=== PATIENT | male | born 1980 | race Two or more races ===

== ENCOUNTER 2023-01-09 18:18 | Emergency (ER) | payer OTHER, SELFPAY ==
[2023-01-09 18:38] VITALS: BP 146/93; PULSE 83; RESP 18; TEMP 36.8; O2SAT 99
--- NOTE | 2023-01-09 19:01 | PC.NURSE ---
Pt has lesions inside his mouth on his inner lips , both upper and lower. He has had these about 1 wk and has been using magic mouthwash with no relief. Pt also has a localized rash to forearms and left leg. In addition, he states his hands peeled yesterday
--- NOTE | 2023-01-09 19:02 | ED_ITS ---
HPI - General Adult General Stated complaint: RASH Time Seen by Provider: 01/09/23 18:31 Source: patient and family Mode of arrival: walk-in Limitations: no limitations History of Present Illness HPI narrative: 42-year-old male presents with a chief complaint of a rash to upper and lower extremities. Pinpoint papular rash upper and lower extremities and information and rash in the mouth. He states yesterday his hands peeled. His was around someone that had mqra-dsrk-yxr-mouth. Patient states he has not been around anyone himself. He's had no rash to the soles of his feet. Denies any fevers chills. He's had no new medications no new foods. He is afebrile nontoxic. He states the medications he was given previously amoxicillin and Magic mouthwash are not helping. Patient denies fevers chills or vomiting. He does not appear toxic. Related Data Previous Rx's Medication Instructions Recorded prednisone 20 mg tablet 20 mg PO DAILY #5 tabs 01/09/23 Allergies Allergy/AdvReac Type Severity Reaction Status Date / Time No Known Drug Allergies Allergy Verified 01/09/23 18:38 Review of Systems ROS Narrative All Systems are negative except as noted/marked.All systems reviewed and otherwise negative PFSH PFSH Social History Smoking status: Current every day smoker Exam Narrative Exam Narrative: Nurses note and vital signs reviewed and patient is not hypoxic. General: The patient appears well and in no apparent distress. Patient is resting comfortably on cart. Skin: Fine maculopapular rash, to upper and lower extremities, no sloughing of skin to the upper or lower extremities. Warm, dry, no pallor noted. Head: Normocephalic, atraumatic Eye: Normal conjunctiva, no drainage, EOMI. PERRL Ears, Nose, Mouth, and Throat: Stomatitis, inflammation the upper gums noted. No other mucosa noted. No lip swelling. Oral mucosa is moist. Nares patent. Mouth without vesicles. Ear canals patent. Tm's without Erythema Cardiovascular: Regular Rate and Rhythm Respiratory: Patient is in no distress, no accessory muscle use, lungs are clear to auscultation, no wheezing, rales or rhonchi GI: Normal bowel sounds, no tenderness to palpation, no masses appreciated. No rebound, guarding, or rigidity noted. Musculoskeletal: The patient has no evidence of calf tenderness, no pitting edema, symmetrical pulses noted bilaterally Neurological: A&O x4, normal speech Psychiatric: Cooperative Constitutional Vital Signs - 24 hr 01/09/23 18:38 Temperature 98.3 F Pulse Rate [Monitor] 83 Respiratory Rate 18 Blood Pressure [Right Arm] 146/93 H Pulse Oximetry 99 Oxygen Delivery Method Room Air Course Vital Signs Vital signs: Vital Signs Temperature 98.3 F 01/09/23 18:38 Pulse Rate 83 01/09/23 18:38 Respiratory Rate 18 01/09/23 18:38 Blood Pressure 146/93 H 01/09/23 18:38 Pulse Oximetry 99 01/09/23 18:38 Oxygen Delivery Method Room Air 01/09/23 18:38 Temperature 98.3 F 01/09/23 18:38 Pulse Rate 83 01/09/23 18:38 Respiratory Rate 18 01/09/23 18:38 Blood Pressure 146/93 H 01/09/23 18:38 Pulse Oximetry 99 01/09/23 18:38 Oxygen Delivery Method Room Air 01/09/23 18:38 Medical Decision Making [facility] Narrative Medical decision making narrative: 42-year-old male presents here with a chief complaint rash and sores to his mouth. He states the Magic mouthwash she is taking is causing him irritation. Patient appears to have viral exanthem or other nontoxic rash at this time. She will be given a dose of Decadron here in the emergency room. We will discharge him home with five days of steroid. He is a type II diabetic. He was made aware to watch his blood sugars. Patient also encouraged to follow-up with dermatology. Discharge Plan Discharge Clinical Impression: Rash, Stomatitis Patient Disposition: Home, Self-Care Time of Disposition Decision: 19:03 Condition: Good Prescriptions / Home Meds: New prednisone 20 mg tablet 20 mg PO DAILY Qty: 5 0RF Instructions: Acute Rash (ED), Gingivostomatitis (ED) Stand Alone Forms: Portal Instructions Referrals: Physician,Non-Staff, MD [Primary Care Provider] - 1 week Follow Up Appointments: dermatology
[2023-01-09] MEDS: DEXAMETHASONE SODIUM PHOSPHATE 10 MG/ML VIAL PO (19:13)
== END 2023-01-09 19:21 | disposition home or self-care (01) ==
PROVIDERS: Emergency Provider Emergency Medicine Emergency Medical Services
DX: K12.1 Other forms of stomatitis (principal); R21 Rash and other nonspecific skin eruption; F17.210 Nicotine dependence, cigarettes, uncomplicated
CPT/HCPCS: 99283; J1100

== ENCOUNTER 2023-03-09 15:22 | Emergency (ER) | payer OTHER, SELFPAY ==
--- NOTE | 2023-03-09 15:24 | ED_ITS ---
HPI - Extremity Injury (Lower) General Chief Complaint: Extremity Injury, Lower Stated Complaint: LT KNEE PAIN Time Seen by Provider: 03/09/23 15:24 History of Present Illness HPI Narrative: Patient presents to emergency department complaining of left knee pain. Patient states started having left knee pain for several weeks. 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 The patient was not used to such straightness activity and thinks that this might have something to do with his current pain. He has been taking Motrin [id number]-ydg-[id number] but yesterday the pain was so intense he could not get any sleep so he came in to be evaluated. Patient also has an appointment with Dr. Quiles on Tuesday. Patient denies any previous injury to the knee. He denies any previous knee problems. He denies any direct blow to the knee. He states he felt some mild paresthesias just distal medially to the knee. He denies any rashes. He denies any weakness. Patient states the pain worsens when he climbs steps, walks, or flexes his knee. Related Data Previous Rx's Medication Instructions Recorded prednisone 20 mg tablet 20 mg PO DAILY #5 tabs 01/09/23 ibuprofen 800 mg tablet 800 mg PO Q8H PRN pain #20 tabs 03/09/23 Allergies Allergy/AdvReac Type Severity Reaction Status Date / Time No Known Drug Allergies Allergy Verified 03/09/23 15:30 Review of Systems ROS Status of ROS 10 or more systems reviewed and unremarkable except as noted in history and below [facility] Social History Smoking status: Never smoker Exam Narrative Exam Narrative: Nurses notes and vital signs reviewed and patient is not hypoxic. General: Nontoxic, Well-appearing and in no apparent distress. Skin: Warm, dry, no pallor noted. No Rash Head: Normocephalic, atraumatic. Neck: Supple, non-tender. Eye: Pupils are equal, round and EOMI. No scleral icterus. Ears, Nose, Mouth, and Throat: TM clear, no posterior oropharynx erythema or nasal mucosal hypertrophy, uvula is mid-line Oral mucosa is moist Cardiovascular: Regular Rate and Rhythm without murmur, gallop or rub. Respiratory: No accessory muscle use or respiratory distress. Lungs are clear to auscultation, no wheezing, rales or rhonchi Chest Wall: no tenderness Back: No midline thoracic or lumbar vertebral tenderness. No CVA tenderness Musculoskeletal: Tenderness to palpation to the anterior medial knee. No erythema or ecchymosis. No laxity. Pain or asymmetry. normal ROM, no calf or popliteal tenderness, no lower extremity edema/swelling. DP +2, tp +2, capillary refill is brisk. GI: Abdomen is soft, non-distended. Normal bowel sounds. No masses appreciated. No tenderness to palpation. No rebound, guarding, or rigidity noted. Neurological: A&O x4. No cranial nerve dysfunction observed. No truncal ataxia. Moves all extremities. Sensation intact. Psychiatric: Cooperative and interactive. Normal mood and affect. MDM - Extremity Injury (Lower) MDM Narrative Medical decision making narrative: X-ray was done which shows a small effusion. All results were discussed with patient. Patient will be placed on an Jaime wrap, knee immobilizer and crutches. He is advised to rest. Given a injection of Toradol IM. He is to continue taking Motrin and follow-up with Dr. Quiles on Tuesday. No additional indication for emergent studies at this time. I answered all questions. Discussed discharge instructions including standard anticipatory guidance and what should prompt a return to the emergency department, including if they get worse are not getting better or develops any new or concerning symptoms. I've given them specific time frame in which to follow-up, and who to follow-up with. The patient demonstrates understanding. Patient is nontoxic and stable for discharge with outpatient follow-up. This note was created with the assistance of a speech recognition program. Although the intention is to generate documents that actually reflects the content of the visit, no guarantees can be provided that every mistake has been identified and corrected by editing. Differential Diagnosis Differential diagnosis: Likely ankle sprain and strain Discharge Plan Discharge Chief Complaint: Extremity Injury, Lower Clinical Impression: Knee effusion Patient Disposition: Home, Self-Care Time of Disposition Decision: 16:10 Condition: Good Mode of Transportation: Private Vehicle Prescriptions / Home Meds: New ibuprofen 800 mg tablet 800 mg PO Q8H PRN (Reason: pain) Qty: 20 0RF No Action prednisone 20 mg tablet 20 mg PO DAILY Qty: 5 0RF Instructions: Swollen Knee Joint (ED) Stand Alone Forms: Portal Instructions Referrals: CHRISTIANA ROSEN APRN [Physician] - 1 week Idris Quiles MD [Physician] - 1 week Discharge Date/Time: 03/09/23 16:26
[2023-03-09 15:25] VITALS: BP 151/95; PULSE 83; RESP 16; TEMP 36.9; O2SAT 99; BMI 32.3
--- NOTE | 2023-03-09 15:27 | XR_ITS ---
The [address] [address] Patient Name: YESENIA TSE MRN: [id number] date: 1980 Sex: M Assigned Patient Location: ED.MAIN Current Patient Location: ER Accession/Order Number: [id number] Exam Date: 03/09/2023 15:40 Report Date: 03/09/2023 16:02 At the request of: UMM SILVERMAN Procedure: XR knee LT 4V PROCEDURE: XR knee LT 4V COMPARISON: None. HISTORY: pain FINDINGS: BONES:No fracture, acute abnormality, or significant arthropathy. SOFT TISSUES:Negative. No visible soft tissue swelling. EFFUSION:Moderate suprapatellar joint effusion OTHER: Negative. XR/XR knee LT 4V IMPRESSION: Moderate joint effusion Electronically authenticated by: CRISELDA DEGROOT Date: 03/09/2023 16:02
--- NOTE | 2023-03-09 15:37 | PC.NURSE ---
pt presents to ED because pt states that he has been having to do a lot of physical fitness testing for his job like running 3 miles and running up stairs and last week after running up stairs he started having pain to his right knee. pt states that he placed a knee brace and it has been helping a little. pt states that yesterday he ran up stairs again for work and pain has worsened. pt having difficulty bending knee and ambulating. ice applied at this time
[2023-03-09] MEDS: KETOROLAC TROMETHAMINE 60 MG/2 ML VIAL IM (16:16)
== END 2023-03-09 16:26 | disposition home or self-care (01) ==
PROVIDERS: Emergency Provider Emergency Medicine
DX: M25.462 Effusion, left knee (principal)
CPT/HCPCS: 73564; 96372; 99284

== ENCOUNTER 2023-03-21 12:29 | Outpatient (OUT) | payer OTHER, SELFPAY ==
--- NOTE | 2023-03-21 12:34 | MR_ITS ---
The [address] [address] Patient Name: YESENIA TSE MRN: [id number] date: 1980 Sex: M Assigned Patient Location: MRI Current Patient Location: MRI Accession/Order Number: [id number] Exam Date: 03/21/2023 12:58 Report Date: 03/21/2023 14:52 At the request of: JUANITA VILLAR Procedure: MR knee LT wo con EXAM: MR knee LT wo con HISTORY: Acute pain of left knee M25.562 COMPARISON: Left knee x-rays 03/09/2023 TECHNIQUE: Multi planar, multisequence MR imaging of the left knee without contrast. Findings: Menisci: The menisci are intact. Cruciate ligaments: The anterior and posterior cruciate ligaments are intact. Collateral ligaments: The medial collateral ligament and lateral collateral complex are intact. Patellofemoral: The extensor mechanism is intact. Small joint effusion. Grade 2 patellofemoral compartment chondromalacia. Other bones and cartilage: There is a nondisplaced transverse fracture of the medial aspect of the proximal tibial metaphysis with minimal adjacent bone marrow edema. No acute joint malalignment. Grade 1/grade 2 femoral tibial compartment chondromalacia. Miscellaneous: No Downey's cyst. MR/MR knee LT wo con IMPRESSION: 1. Nondisplaced transverse fracture of the medial aspect of the proximal tibial metaphysis. Electronically authenticated by: TEENA KRAMER Date: 03/21/2023 14:52
== END 2023-03-21 12:30 | disposition home or self-care (01) ==
LOC: MRI 12:30
PROVIDERS: Visit Provider Orthopaedic Surgery
DX: M25.562 Pain in left knee (principal); S82.192A Other fracture of upper end of left tibia, initial encounter for closed fracture
CPT/HCPCS: 73721

== ENCOUNTER 2023-04-25 08:17 | Outpatient (OUT) | payer OTHER, SELFPAY ==
--- NOTE | 2023-04-25 08:19 | XR_ITS ---
The [address] [address] Patient Name: YESENIA TSE MRN: [id number] date: 1980 Sex: M Assigned Patient Location: [facility] Current Patient Location: [facility] Accession/Order Number: [id number] Exam Date: 04/25/2023 08:29 Report Date: 04/25/2023 14:09 At the request of: JUANITA VILLAR Procedure: XR tibia fibula LT 2V EXAM: XR tibia fibula LT 2V HISTORY: Stress Fracture Left Tibia M84.362A COMPARISON: 03/21/2023. TECHNIQUE: 2 views left lower leg. FINDINGS/IMPRESSION: Subtle sclerosis at the left medial proximal extra-articular tibia related to nonacute healing fracture as evidenced on prior MRI from February 2023. The left mid tibia demonstrates mild cortical thickening especially along the lateral margin which is nonspecific but could represent chronic stress response. There is no evidence of a displaced fracture. Left fibula is intact. The knee and ankle otherwise grossly intact. Electronically authenticated by: FABIAN DAHL Date: 04/25/2023 14:09
== END 2023-04-25 08:18 | disposition home or self-care (01) ==
LOC: RAD 08:17
PROVIDERS: Visit Provider Orthopaedic Surgery
DX: M84.362G Stress fracture, left tibia, subsequent encounter for fracture with delayed healing (principal); X58.XXXD Exposure to other specified factors, subsequent encounter
CPT/HCPCS: 73590

== ENCOUNTER 2023-06-06 09:04 | Outpatient (OUT) | payer OTHER, SELFPAY ==
--- NOTE | 2023-06-06 09:12 | XR_ITS ---
The [address] [address] Patient Name: YESENIA TSE MRN: [id number] date: 1980 Sex: M Assigned Patient Location: RAD Current Patient Location: RAD Accession/Order Number: [id number] Exam Date: 06/06/2023 09:18 Report Date: 06/06/2023 09:49 At the request of: JUANITA VILLAR Procedure: XR knee LT 2V EXAM: XR knee LT 2V HISTORY: Stress Fracture Left Tibia M84.362A COMPARISON: None. TECHNIQUE: 2 views FINDINGS: There is increased sclerosis of the left medial proximal tibia since the prior exam. No dislocation. Unremarkable soft tissue. XR/XR knee LT 2V IMPRESSION: Healing fracture of the medial proximal tibia. Electronically authenticated by: ROGELIO ESTRADA Date: 06/06/2023 09:49
--- OUTSIDE RECORDS SUMMARY | 2023-07-12 18:52 | XMS_ITS | CCD ---
Author Name Unknown Address [id number] [place] [address] Organization [facility] Care Team Providers Care Termite Technician Name Role Phone NAHOMY ANDRADE (MAZIN) Unavailable Unavailable Jude Ruvalcaba III Primary Care Physician SALBADOR HERNANDEZ Primary Care Physician DO Jude Ruvalcaba III Primary Care Provider ALMA DELIA Myers Attending Provider [phone] Asaad, Imad Unavailable HERRERA ., UMM Admitting Unavailable HERRERA ., UMM Attending Unavailable [facility], [place] Primary Care Unavailable JANIA, DR JUANITA Guidry Consulting Unavailable EL .DONAVAN Consulting Unavailable [facility], [place] Primary Care Unavailable DAYA WHARTON Admitting Unavailable DAYA WHARTON Attending Unavailable JANIA, DR JUANITA Guidry Consulting Unavailable DAYA WHARTON Consulting Unavailable BRAYDEN ., DR NGUYEN Admitting Unavailable ALFONSO ., DR NGUYEN Attending Unavailable [facility], [place] Primary Care Unavailable ALOFNSO ., DR NGUYEN Admitting Unavailable ALFONSO ., DR NGUYEN Attending Unavailable ADE, [place] Primary Care Unavailable ALFONSO ., DR NGUYEN Consulting Unavailable MOIZ TONG Consulting Unavailable SANDRA IIAMIRA Consulting Unavailable SABI FREEMAN Consulting Unavailable ALFONSO ., DR NGUYEN Admitting Unavailable ALFONSO ., DR NGUYEN Attending Unavailable ADE, [place] Primary Care Unavailable ALFONSO ., DR NGUYEN Consulting Unavailable ALFONSO ., DR NGUYEN Admitting Unavailable ALFONSO ., DR NGUYEN Attending Unavailable ADE, [place] Primary Care Unavailable ALFONSO ., DR NGUYEN Consulting Unavailable JANIA, DR JUANITA Guidry Consulting Unavailable ALFONSO ., DR NGUYEN Admitting Unavailable ALFONSO ., DR NGUYEN Attending Unavailable [place]OR HERNANDEZ Primary Care Unavailable Asaad, Imad Admitting Unavailable Asaad, Imad Attending Unavailable Salbador Hernandez Primary Care Unavailable Myers, Domonique L Admitting Unavailable Myers, Domonique L Attending Unavailable Ruvalcaba III, Jude R Primary Care Unavailroxie romero Georgia Del Cid Unavailable SALBADOR HERNANDEZ Primary Care Physician NILL, Nicky R Attending Unavailable NILL, Nicky R Attending Unavailable ALFONSO, R Attending Unavailable NILL, Nicky R Attending Unavailable ALFONSO, R Attending Unavailable ALFONSO, R Attending Unavailable NILL, Nicky R Attending Unavailable NILL, Nicky R Referring Unavailable NILL, Nicky R Admitting Unavailable NILL, Nicky R Attending Unavailable NILL, Nicky R Referring Unavailable NILL, Nicky R Admitting Unavailable NILL, Nicky R Attending Unavailable Allergies Allergy Classification Reported Allergen(s) Allergy Type Date of Onset Reaction(s) Facility (8 sources) metFORMIN; Translations: [metformin] Drug Allergy Diarrhea (finding) [facility] (1 source) metFORMIN Drug Allergy [facility] (1 source) Acetaminophen / oxyCODONE; Translations: [Percocet 5/325] Drug Allergy [facility] (1 source) No Known Medication Allergies; Translations: [No Known Medication Allergies] Propensity to adverse reactions (disorder) [facility] Medications Current Medications Medication Drug Class(es) Dates Sig (Normalized) Sig (Original) acetaminophen 325 mg / oxyCODONE hydrochloride 5 mg oral tablet (1 source) Opioid Agonist Start: 05-20-2022 End: 05-25-2022 Percocet 325 mg-5 mg Tab 1 tab(s), Oral, q3hr Pain, 20 tab(s), Refill(s) 0, take with food or milk, [facility]/pharmacy #[id number], 180, cm, 05/13/22 12:43:00 EDT, Height/Length Dosing, 101.4, kg, 05/13/22 12:43:00 EDT, Weight Dosing Start Date: 05/20/22 Stop Date: 05/25/22 Status: Ordered amoxicillin 875 mg / clavulanate 125 mg oral tablet (1 source) Penicillin-class Antibacterial Start: 01-06-2023 take 1 tablet by mouth every twelve hours Amoxicillin-Pot Clavulanate 875-125 MG 1 tablet Orally every 12 hrs for 10 days Dec, Active chlorhexidine gluconate 1.2 mg/ml mouthwash (1 source) Start: 01-06-2023 take 15 mL by mouth twice daily Chlorhexidine Gluconate 0.12 % 15ml Mouth/Throat, swish and spit BID for 10 days Dec, Active clotrimazole 10 mg/ml topical cream (1 source) Azole Antifungal Start: 07-30-2020 clotrimazole Top 1% Crm 1 murray, Topical, BID, 15 gram, Refill(s) 1, [facility], 173, cm, 07/30/20 10:33:00 EST, Height/Length Dosing, 109.1, kg, 07/30/20 10:33:00 EST, Weight Dosing Start Date: 07/30/20 Status: Ordered 0.5 ml dulaglutide 1.5 mg/ml auto-injector (4 sources) GLP-1 Receptor Agonist Start: 01-29-2020 Dulaglutide (Trulicity) 0.75 mg/0.5 mL pen injector Active 0.75 MG SUBCUT As Directed January 29, 2020 12:00am Start: 07-26-2018 Trulicity Pen SubCutaneous, Refills(s) 0 Start Date: 07/26/18 Status: Ordered Trulicity Not- nikia Trulicity Active fluconazole 150 mg oral tablet (2 sources) Azole Antifungal Start: 01-06-2023 take 1 tablet by mouth once Diflucan 150 MG 1 tablet Orally once for 1 days Dec, Active Start: 07-30-2020 fluconazole 15 0 mg Tab 150 mg = 1 tab(s), Oral, Once, repeat in 3 days, # 2 tab(s), Refills(s) 0, Pharmacy: [facility], 173, cm, 07/30/20 10:33:00 EST, Height/Length Dosing, 109.1, kg, 07/30/20 10:33:00 EST, Weight Dosing Start Date: 07/30/20 Status: Ordered glyBURIDE 5 mg oral tablet (7 sources) Sulfonylurea Start: 04-23-2022 take 1 tablet by mouth twice daily GlyBURIDE (Eqv-Micronase) 5 mg oral tablet 5 mg = 1 tab(s), Oral, BID, Refills(s) 0, Blood glucose Start Date: 04/23/22 Status: Ordered Hydrocortisone (1 source) Corticosteroid Start: 07-30-2020 apply 30 g topically twice daily hydrocortisone Top 1% Crm murray, Topical, BID, 30 gm, Refill(s) 0, for 3 days apply in a thin film to the affected skin and rub in, [facility], 173, cm, 07/30/20 10:33:00 EST, Height/Length Dosing, 109.1, kg, 07/30/20 10:33:00 EST, Weight Dosing Start Date: 07/30/20 Status: Ordered ibuprofen 800 mg oral tablet (1 source) Nonsteroidal Anti-inflammatory Drug Start: 07-30-2020 take 1 mg by mouth three times daily ibuprofen 800 mg Tab mg tab(s), Oral, TID, Refills(s) 0 Start Date: 07/30/20 Status: Ordered ketorolac tromethamine 10 mg oral tablet (1 source) Nonsteroidal Anti-inflammatory Drug, Cyclooxygenase Inhibitor Start: 07-30-2020 take 1 tablet by mouth every eight hours as needed for pain ketorolac 10 mg Tab 10 mg = 1 tab(s), Oral, q8hr, PRN for pain, take with food, # 12 tab(s), Refills(s) 0, Pharmacy: [facility], 173, cm, 07/30/20 10:33:00 EST, Height/Length Dosing, 109.1, kg, 07/30/20 10:33:00 EST, Weight Dosing Start Date: 07/30/20 Status: Ordered Lidocaine (1 source) Antiarrhythmic, Amide Local Anesthetic Start: 07-30-2020 lidocaine Top 4% Crm 1 murray, Topical, BID pain, 15 gm, Refill(s) 0, [facility], 173, cm, 07/30/20 10:33:00 EST, Height/Length Dosing, 109.1, kg, 07/30/20 10:33:00 EST, Weight Dosing Start Date: 07/30/20 Status: Ordered omeprazole 20 mg delayed release oral capsule (3 sources) Proton Pump Inhibitor Start: 09-11-2020 take 1 capsule by mouth once daily omeprazole 20 mg Cap-DR 20 mg = 1 cap(s), Oral, Daily, # 30 cap(s), Refills(s) 0 Start Date: 09/11/20 Status: Ordered Start: 02-04-2020 take 1 capsule by [facility] every twelve hours Omeprazole 40 MG 1 capsule Orally bid for 10 day(s) Jan, Not-Taking SITagliptin 100 mg oral tablet (4 sources) Dipeptidyl Peptidase 4 Inhibitor Start: 01-29-2020 take 1 tablet by mouth once daily Januvia 100 mg Tab 100 mg = 1 tab(s), Oral, Daily, # 30 tab(s), Refills(s) 0 Start Date: 09/11/20 Status: Ordered tamsulosin hydrochloride 0.4 mg oral capsule (1 source) alpha-Adrenergic Liliam Start: 11-05-2022 take 1 capsule by mouth once daily tamsulosin 0.4 mg Cap 0.4 mg = 1 cap(s), Oral, Daily, # 30 cap(s), Refills(s) 0, Pharmacy: [facility]/pharmacy #[id number], 180, cm, 10/22/22 9:12:00 EDT, Height/Length Dosing, 103.2, kg, 10/22/22 9:12:00 EDT, Weight Dosing Start Date: 11/05/22 Status: Ordered Completed/Discontinued Medications Medication Drug Class(es) Dates Sig (Normalized) Sig (Original) amoxicillin 500 mg oral capsule (2 sources) Penicillin-class Antibacterial Start: 02-04-2020 take 2 capsules by mouth every twelve hours Amoxicillin 500 MG 2 CAPSULES Orally every 12 hrs for 10 day(s) Jan, Not-Taking 24 hr clarithromycin 500 mg extended release oral tablet (2 sources) Macrolide Antimicrobial Start: 02-04-2020 take 1 tablet by mouth every twelve hours Clarithromycin ER 500 MG 1 TABLET Orally bid for 10 day(s) Jan, Not-Taking polyethylene glycol 3350 434456 mg / potassium chloride 2970 mg / sodium bicarbonate 6740 mg / sodium chloride 5860 mg / sodium sulfate 11613 mg powder for oral solution (2 sources) Osmotic Laxative Start: 11-04-2022 PEG-3350/Electrolyt es 236 GM as directed Orally once daily for 1 days Oct, Not-Taking Problems Active Problems Problem Classification Problem Date Documented Da te Episodic/Chronic Abdominal hernia (17 sources) Inguinal hernia; Translations: [Unilateral inguinal hernia, without obstruction or gangrene, not specified as recurrent] Onset: 2 Episodic Abdominal pain (5 sources) Abdominal pain; Translations: [Unspecified abdominal pain] Onset: 2 Episodic Acquired foot deformities (2 sources) Hallux valgus 03-08-2018 Chronic Calculus of urinary tract (20 sources) Ureteric stone; Translations: [Calculus of ureter] Onset: 2 Episodic Diabetes mellitus without complication (15 sources) Diabetes mellitus; Translations: [Type 2 diabetes mellitus without complications] Onset: 3 07-30-2020 Chronic Disorders of teeth and jaw (1 source) Acute gingivitis, plaque induced Episodic Esophageal disorders (2 sources) Gastroesophageal reflux disease; Translations: [Gastro-esophageal reflux disease without esophagitis] Chronic Fever of unknown origin (2 sources) Fever 07-30-2020 Episodic Gastrointestinal hemorrhage (5 sources) Rectal hemorrhage; Translations: [Hematochezia] Onset: 3 03-08-2018 Episodic Headache; including migraine (4 sources) Chronic headache disorder; Translations: [Headache] 03-08-2018 Episodic Hemorrhoids (2 sources) Hemorrhoids 03-08-2018 Episodic Mood disorders (7 sources) Major depression, single episode 09-11-2020 Chronic Mood disorders (1 source) Mood disorders; Translations: [DEPRESSION UNSPECIFIED] Onset: 3 Mycoses (7 sources) Candidal balano-posthitis 07-30-2020 Episodic Nausea and vomiting (4 sources) Nausea; Translations: [Nausea] Episodic Other aftercare (1 source) 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; Translations: [RESIDENTIAL USE ORAL 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 DX] Onset: 3 Episodic Other circulatory disease (2 sources) Elevated blood pressure 07-30-2020 Episodic Other gastrointestinal disorders (2 sources) Diarrhea; Translations: [Diarrhea, unspecified] Episodic Other gastrointestinal disorders (2 sources) Abnormal frequency of defecation; Translations: [Change in bowel habit] Episodic Other gastrointestinal disorders (2 sources) Rectal discharge; Translations: [Other specified symptoms and signs involving the digestive system and abdomen] Episodic Other liver diseases (7 sources) Elevated liver enzymes level 09-11-2020 Episodic Other nutritional; endocrine; and metabolic disorders (9 sources) Body mass index 30+ - obesity; Translations: [Body mass index (BMI) 30.0-30.9, adult] 07-30-2020 Chronic Pneumonia (except that caused by tuberculosis or sexually transmitted disease) (2 sources) Pneumonia 10-05-2013 Episodic Comment on above: years ago 24 yo Regional enteritis and ulcer ative colitis (1 source) Crohn's disease 04-27-2022 Chronic Residual codes; unclassified (7 sources) Tobacco user 10-23-2012 Episodic Comment on above: Added secondary to s ocial history documentation. Residual codes; unclassified (1 source) Acquired absence of other specified parts of digestive tract; Translations: [ACQ ABSENCE OTH PART DIGESTV TRACT] Onset: 11-01-2022 Episodic Screening and history of mental health and substance abuse codes (5 sources) Tobacco use and exposure - finding 04-28-2022 Chronic Substance-related disorders (15 sources) Smoker; Translations: [Nicotine dependence, cigarettes, uncomplicated] Onset: 11-01-2022 04-23-2022 Chronic Comment on above: Added secondary to d ocumentation in Social History. Unclassified (1 source) CONTACT W/AND (SUSP) EXPOS COVID-19; Tra nslations: [CONTACT W/AND (SUSP) EXPOS COVID-19] Onset: 02-19-2022 Unclassified (1 source) Injury, unspecified, initial encounter; Translations: [Injury, unspecified, initial encounter] Onset: 10-21-2022 Past or Other Problems Problem Classification Problem Date Documented Da te Episodic/Chronic Nonspecific chest pain (4 sources) Other chest pain; Translations: [OTHER CHEST PAIN] Onset: 02-17-2022 Episodic Results Test Name Value Interpretation Reference Range Facil ity Glucose Poct Glucometerson 0 11-30-2022 Glucose [Mass/Vol] 155 mg/dL Normal [facility] Comment on above: Result Comment: [facility] Glucose Reference Range is dependent on time and content of last meal. Glucose of more than 200 mg/dL in a nonstressed, ambulatory subject supports the diagnosis of Diabetes Mellitus. PERFORMED BY: [facility] [place] [address] PATHOLOGIST CORPORATE REAL ESTATE MANAGER IGLESIA SANCHEZ M.D. Performed By: #### G STIVEN #### Point of Care testing , Roland 11-30-2022 L Specimen: [id number] Received: 11/30/22 Status: JAGDISH Belcher Num: [id number] Spec Type: Surgical Subm Dr: Edvin Colunga MD Tissues: A Colon Biopsy (ASCENDING POLYP) Procedures: HE/Mirella, Gross/Micro L4 Age/ Patient Sex Location Account Attending Physician Brian Tse/Clint [id number] Edvin Colunga MD SPEC NUM: [id number] RECD: 11/30/22 STATUS: JAGDISH BELCHER NUM: [id number] REINA: 11/30/22 DR: Edvin Colunga MD ENTERED: 11/30/[address]: SPEC TYPE: Surgical DEPT: S ORDERED: HE/2, Gross/Micro L4 ORDERED: HE/2, Gross/Micro L4 Pathological Diagnosis A. Colon, ascending colon polyp, biopsy: - Tubular adenoma. Clinical Information Hematemesis Gross Description Received in formalin labeled with the patient's name, number and ascending polyp?? is one fragment of soft quigley tissue measuring 0.3x 0.3 x 0.1 cm. Entirely submitted in one cassette labeled A1. Microscopic Description A. Two glass slides with H E stained material have been examined. The microscopic findings support the above pathologic diagnosis. CPT Codes 58434 Specimen: [id number] Received: 11/30/22 Status: JAGDISH Belcher Num: [id number] Spec Type: Surgical Subm Dr: Edvin Colunga MD Tissues: A Colon Biopsy (ASCENDING POLYP) Procedures: HE/2, Gross/Micro L4 Patient: Brian Tse [id number] (Continued) Signed (signature on file) Daily Quarles MD 12/01/22 1158 Normal [facility] ECG 12-Leadon 11-03-2022 ECG 12-Lead [id number] D:[address] [facility] Operative Reporton 3 Operative Report [id number]:[address] [facility] CBC AUTO DIFFon 10-28-2022 BASO # 0.1 103/ul Normal 0.0-0.1 [facility] Comment on above: Performed By: #### C BC #### [facility] [address] [place] [address] Dr. Yash Mckeon Basophils/100 WBC (Bld) 0.8 % Normal 0.2-2.0 [facility] Comment on above: Performed By: #### C BC #### [facility] [address] [place] [address] Dr. Yash Mckeon EO # 0.4 103/ul Normal 0.0-0.7 [facility] Comment on above: Performed By: #### C BC #### [facility] [address] [place] [address] Dr. Yash Mckeon Eosinophils/100 WBC (Bld) 3.3 % Normal 0.9-7.0 [facility] Comment on above: Performed By: #### C BC #### [facility] [address] [place] [address] Dr. Yash Mckeon Erythrocyte distribution wid th (RBC) [Ratio] 14.0 % Normal 11.0-15.0 [facility] Comment on above: Performed By: #### C BC #### [facility] [address] [place] [address] Dr. Yash Mckeon Hematocrit (Bld) [Volume fraction] 45.4 % Normal 4 2.0-54.0 [facility] Comment on above: Performed By: #### C BC #### [facility] [address] [place] [address] Dr. Yash Mckeon Hemoglobin (Bld) [Mass/Vol] 14.8 g/dL Normal 14.0-18. 0 [facility] Comment on above: Performed By: #### C BC #### [facility] [address] [place] [address] Dr. Yash Mckeon IG # 0.04 10e3/ul Critically high 0.00-0.03 [facility] Comment on above: Performed By: #### C BC #### [facility] [address] [place] [address] Dr. Yash Mckeon IG % 0.4 % Normal 0.0-0.5 [facility] Comment on above: Performed By: #### C BC #### [facility] [address] [place] [address] Dr. Yash Mckeon LYMPH # 2.8 103/ul Normal 1.2-3.8 [facility] Comment on above: Performed By: #### C BC #### [facility] [address] [place] [address] Dr. Yash Mckeon Lymphocytes/100 WBC (Bld) 25.3 % Normal 20.5-60.0 [facility] Comment on above: Performed By: #### C BC #### [facility] [address] [place] [address] Dr. Yash Mckeon MANUAL DIFF REQ NO Normal [facility] Comment on above: Performed By: #### C BC #### [facility] [address] [address] [address] Yash Mckeon MCH (RBC) [Entitic mass] 28.6 pg Normal 25.9-34.0 [facility] Comment on above: Performed By: #### C BC #### [facility] [address] [place] [address] Dr. Yash Mckeon MCHC (RBC) [Mass/Vol] 32.6 g/dL Normal 29.9-35.2 [facility] Comment on above: Performed By: #### C BC #### [facility] [address] [place] [address] Dr. Yash Mckeon MCV (RBC) [Entitic vol] 87.8 fL Normal 80.0-94.0 [facility] Comment on above: Performed By: #### C BC #### [facility] [address] [place] [address] Dr. Yash Mckeon MONO # 1.0 103/ul Critically high 0.3-0.8 [facility] Comment on above: Performed By: #### C BC #### [facility] [address] [place] [address] Dr. Yash Mckeon Monocytes/100 WBC (Bld) 8.6 % Normal 1.7-12.0 [facility] Comment on above: Performed By: #### C BC #### [facility] [address] [place] [address] Dr. Yash Mckeon NEUT # 6.9 103/ul Critically high 1.4-6.5 [facility] Comment on above: Performed By: #### C BC #### [facility] [address] [place] [address] Dr. Yash Mckeon Neutrophils/100 WBC (Bld) 61.6 % Normal 43.0-75.0 [facility] Comment on above: Performed By: #### C BC #### [facility] [address] [place] [address] Dr. Yash Mckeon Platelet mean volume (Bld) [ Entitic vol] 10.0 fL Normal 9.5-13.5 [facility] pital Comment on above: Performed By: #### C BC #### [facility] [address] [place] [address] Dr. Yash Mckeon PLT 250 103/ul Normal 150-450 [facility] Comment on above: Performed By: #### C BC #### [facility] [address] [place] [address] Dr. Yash Mckeon RBC 5.17 106/ul Normal 4.70-6.10 [facility] Comment on above: Performed By: #### C BC #### [facility] [address] [place] [address] Dr. Yash Mckeon WBC 11.2 103/ul Critically high 4.0-11.0 [facility] Comment on above: Performed By: #### C BC #### [facility] [address] [place] [address] Dr. Yash Mckeon POINT OF CARE GLUCOSEon 04- Glucose [Mass/Vol] 219 mg/dL Critically high 74-106 [facility] Comment on above: Performed By: #### P OCGLUC #### [facility] [address] [place] [address] Dr. Yash Mckeon PROF CHEM 8 (BAS METB)on Anion gap [Moles/Vol] 11.8 mmol/L Normal [facility] Comment on above: Performed By: #### B MP #### [facility] [address] [place] [address] Dr. Yash Mckeon Calcium [Mass/Vol] 8.6 mg/dL Normal 8.5-10.1 [facility] Comment on above: Performed By: #### B MP #### [facility] [address] [place] [address] Dr. Yash Mckeon Chloride [Moles/Vol] 101 mmol/L Normal 98-107 [facility] Comment on above: Performed By: #### B MP #### [facility] [address] [place] [address] Dr. Yash Mckeon CO2 [Moles/Vol] 28.0 mmol/L Normal 21.0-32.0 [facility] Comment on above: Performed By: #### B MP #### [facility] [address] [address] [address] Yash Mckeon Creatinine [Mass/Vol] 1.13 mg/dL Normal 0.70-1.30 [facility] Comment on above: Performed By: #### B MP #### [facility] [address] [address] [address] Yash Mckeon EGFR-AF KOSOVAN >60 Normal >=60 [facility] Comment on above: Performed By: #### B MP #### [facility] [address] [address] [address] Yash Mckeon EGFR-NON AF KOSOVAN >60 Normal >=60 [facility] Comment on above: Performed By: #### B MP #### [facility] [address] [address] [address] Yash Mckeon Glucose [Mass/Vol] 196 mg/dL Critically high 74-106 [facility] Comment on above: Performed By: #### B MP #### [facility] [address] [address] [address] Yash Mckeon Potassium [Moles/Vol] 3.8 mmol/L Normal 3.5-5.1 [facility] Comment on above: Performed By: #### B MP #### [facility] [address] [address] [address] Yash Mckeon Sodium [Moles/Vol] 137 mmol/L Normal 136-145 [facility] Comment on above: Performed By: #### B MP #### [facility] [address] [address] [address] Yash Mckeon Urea nitrogen [Mass/Vol] 14.0 mg/dL Normal 7.0-18.0 [facility] Comment on above: Performed By: #### B MP #### [facility] [address] [address] [address] Yash Mckeon Urea nitrogen/Creatinine [Mass ratio] 12.4 mg/mg Normal [facility] Comment on above: Performed By: #### B MP #### [facility] [address] [place] [address] Dr. Yash Mckeon PROTIMEon 10-28-2022 INR Coag (PPP) [Relative time] {INR} Normal [facility] Comment on above: Performed By: #### P OCGLUC #### [facility] [address] [place] [address] Dr. Yash Mckeon INR GUIDELINES SEE BELOW Normal [facility] Comment on above: Result Comment: ZAN RED INR: 2.0 - 3.0 CONDITIONS NOT LISTED BELOW 2.5 - 3.5 FOR PROSTHETIC HEART VALVE REPLACEMENT 2.5 - 3.5 RECURRENT THROMBOSIS Performed By: #### P OCGLUC #### [facility] [address] [place] [address] Dr. Yash Mckeon PT Coag (PPP) [Time] 9.8 s Normal 9.0-11.6 [facility] Comment on above: Performed By: #### P OCGLUC #### [facility] [address] [place] [address] Dr. Yash Mckeon PTTon 10-28-2022 aPTT Coag (Bld) [Time] 30.5 s Normal 22.3-36.2 [facility] Comment on above: Performed By: #### P OCGLUC #### [facility] [address] [place] [address] Dr. Yash Mckeon RAD - MISCon 10-28-2022 RAD - MISC [id number] :[address] [facility] RAD - MISC [id number] :[address] [facility] RAD - MISC [id number] :[address] [facility] RAD - Ultrasound Reporton RAD - Ultrasound Report [id number]:[address] [facility] XR KUB 1 VIEWon 10-28-2022 XR KUB 1 VIEW Exam: Radiographs: X R KUB 1 VIEW Reason for exam: Urolithiasis Comparison: Plain films dated 10/22/2022 IMPRESSION: No radiographically evident renal, ureteral or bladder calculi. No gas-filled dilated loops of small bowel or colon. No gaseous dilation of the stomach. No fecal impaction. Cholecystectomy. Remainder unremarkable. Electronically authenticated by: SABI FREEMAN Date: 2022-10-28 08:00 Normal [facility] XR KUB 1 VIEWon 10-25-2022 XR KUB 1 VIEW EXAMINATION: XR KUB 1 VIEW HISTORY: Kidney stone ; right side abdominal pain COMPARISON: No relevant comparison available. FINDINGS: KIDNEY/URETER - RIGHT: No visible renal or ureteral calcifications. KIDNEY/URETER - LEFT: No visible renal or ureteral calcifications. PELVIS: No convincing ureteral stones. A few tiny calcifications within the pelvis which favor phleboliths. BOWEL: No abnormal dilation or deviation. BONES: No acute abnormality. OTHER: Negative. No abnormal gaseous collections. IMPRESSION: 1. No appreciable urinary tract calculi. Electronically authenticated by: JUANITA DYKES Date: 2022-10-25 06:41 Normal [facility] Ambulatory Visit Summaryon 0 10-22-2022 Ambulatory Visit Summary BRIAN TSE :1980 Visit Date:10/22/2022 Ambulatory Visit Instructions Your Diagnosis Ureteral stone Kidney stone Inguinal hernia Tests Performed Urnls Dip Stick Auto w/o Microscopy POC 54795 XR Abdomen 1 View -- Results Pending -- Please visit your patient portal for your results or contact your primary care physician. Your Care Team Attending Physician - Patrick ALFONSO MD Primary Care Physician - SALBADOR HERNANDEZ CNP This Is Your Medications List Contact prescribing physician if questions or concerns glyBURIDE (GlyBURIDE (Eqv-Micronase) 5 mg oral tablet) Procedures Performed Laparoscopy, surgical; repair initial inguinal hernia (05/20/2022), Harris bunionectomy, right (02/27/2015), Harris bunionectomy, left foot (01/02/2015), Hemorrhoidectomy (10/2012), Cholecystectomy, Circumcision, Colonoscopy, Colonoscopy, Extn - Extraction of tooth, Lateral sphincterotomy, removal of ingrown toenail. Discharge Vitals Heart Rate (Peripheral) 68 Respiratory Rate 16 Blood Pressure 120/83 Height 180 cm Height 71 in Weight 103.2 kg Weight 227.04 lb BMI 31.85 What to do next You Need to Schedule the Following Appointments Follow Up with BRAYDEN CORONEL, NAVIN Aranda When: Where: [address] [place] [phone]- Medications What How Much When Instructions Unchanged glyBURIDE (GlyBURIDE (Eqv-Micronase) 5 mg oral tablet) 1 Tablets By Mouth 2 times a day Contact prescribing physician if questions or concerns Test Results Urnls Dip Stick Auto w/o Microscopy POC 70384 (10/22/2022) Bilirubin Urine Dipstick - 1+ Small Blood Urine Dipstick - Negative Glucose Urine Dipstick - Negative Ketones Urine Dipstick - Negative Leukocytes Urine Dipstick - Negative Nitrite Urine Dipstick - Negative Protein Urine Dipstick - 1+ (30 mg/dl) Specific Painter Urine Dipstick - >=1.030 Urine Appearance Urine Dipstick - Clear Urine Color Urine Dipstick - Yellow Urobilinogen Urine Dipstick - Normal 0.2-1 EU/dl pH Urine Dipstick - 5.5 Allergies metFORMIN (Diarrhea) Problems Ongoing - Any problem that you are currently receiving treatment for. BMI 31.0-31.9,adult Inguinal hernia Kidney stone Reducible left inguinal hernia Smoker Smoker Tobacco use Ureteral stone Historical - Any problem that you are no longer receiving treatment for. Candidal balano-posthitis DM (diabetes mellitus) Elevated liver enzymes Major depressive disorder, single episode Uncontrolled diabetes mellitus Education Materials Kidney Stones Kidney stones are rock-like masses that form inside of the kidneys. Kidneys are organs that make pee (urine). A kidney stone may move into other parts of the urinary tract, including: ? The tubes that connect the kidneys to the bladder (ureters). ? The bladder. ? The tube that carries urine out of the body (urethra). Kidney stones can cause very bad pain and can block the flow of pee. The stone usually leaves your body (passes) through your pee. You may need to have a doctor take out the stone. What are the causes? Kidney stones may be caused by: ? A condition in which certain glands make too much parathyroid hormone (primary hyperparathyroidism). ? A buildup of a type of crystals in the bladder made of a chemical called uric acid. The body makes uric acid when you eat certain foods. ? Narrowing (stricture) of one or both of the ureters. ? A kidney blockage that you were born with. ? Past surgery on the kidney or the ureters, such as gastric bypass surgery. What increases the risk? You are more likely to develop this condition if: ? You have had a kidney stone in the past. ? You have a family history of kidney stones. ? You do not drink enough water. ? You eat a diet that is high in protein, salt (sodium), or sugar. ? You are overweight or very overweight (obese). What are the signs or symptoms? Symptoms of a kidney stone may include: ? Pain in the side of the belly, right below the ribs (flank pain). Pain usually spreads (radiates) to the groin. ? Needing to pee often or right away (urgently). ? Pain when going pee (urinating). ? Blood in your pee (hematuria). ? Feeling like you may vomit (nauseous). ? Vomiting. ? Fever and chills. How is this treated? Treatment depends on the size, location, and makeup of the kidney stones. The stones will often pass out of the body through peeing. You may need to: ? Drink more fluid to help pass the stone. In some cases, you may be given fluids through an IV tube put into one of your veins at the hospital. ? Take medicine for pain. ? Make changes in your diet to help keep kidney stones from coming back. Sometimes, medical procedures are needed to remove a kidney stone. This may involve: ? A procedure to break up kidney stones using a beam of light (laser) or sh (more content not included)... Normal [facility] Consent for Procedure/Surger yon 10-22-2022 Consent for Procedure/Surgery [id number]:[address] [facility] Patient Educationon 10-23-19 23 Patient Education Urology Kidney Stones Kidney stones are rock-like masses that form inside of the kidneys. Kidneys are organs that make pee (urine). A kidney stone may move into other parts of the urinary tract, including: ? The tubes that connect the kidneys to the bladder (ureters). ? The bladder. ? The tube that carries urine out of the body (urethra). Kidney stones can cause very bad pain and can block the flow of pee. The stone usually leaves your body (passes) through your pee. You may need to have a doctor take out the stone. What are the causes? Kidney stones may be caused by: ? A condition in which certain glands make too much parathyroid hormone (primary hyperparathyroidism). ? A buildup of a type of crystals in the bladder made of a chemical called uric acid. The body makes uric acid when you eat certain foods. ? Narrowing (stricture) of one or both of the ureters. ? A kidney blockage that you were born with. ? Past surgery on the kidney or the ureters, such as gastric bypass surgery. What increases the risk? You are more likely to develop this condition if: ? You have had a kidney stone in the past. ? You have a family history of kidney stones. ? You do not drink enough water. ? You eat a diet that is high in protein, salt (sodium), or sugar. ? You are overweight or very overweight (obese). What are the signs or symptoms? Symptoms of a kidney stone may include: ? Pain in the side of the belly, right below the ribs (flank pain). Pain usually spreads (radiates) to the groin. ? Needing to pee often or right away (urgently). ? Pain when going pee (urinating). ? Blood in your pee (hematuria). ? Feeling like you may vomit (nauseous). ? Vomiting. ? Fever and chills. How is this treated? Treatment depends on the size, location, and makeup of the kidney stones. The stones will often pass out of the body through peeing. You may need to: ? Drink more fluid to help pass the stone. In some cases, you may be given fluids through an IV tube put into one of your veins at the hospital. ? Take medicine for pain. ? Make changes in your diet to help keep kidney stones from coming back. Sometimes, medical procedures are needed to remove a kidney stone. This may involve: ? A procedure to break up kidney stones using a beam of light (laser) or shock waves. ? Surgery to remove the kidney stones. Follow these instructions at home: Medicines ? Take spij-saz-lrcrnhh and prescription medicines only as told by your doctor. ? Ask your doctor if the medicine prescribed to you requires you to avoid driving or using heavy machinery. Eating and drinking ? Drink enough fluid to keep your pee pale yellow. You may be told to drink at least 8?10 glasses of water each day. This will help you pass the stone. ? If told by your doctor, change your diet. This may include: ? Limiting how much salt you eat. ? Eating more fruits and vegetables. ? Limiting how much meat, poultry, fish, and eggs you eat. ? Follow instructions from your doctor about eating or drinking restrictions. General instructions ? Collect pee samples as told by your doctor. You may need to collect a pee sample: ? 24 hours after a stone comes out. ? 8?12 weeks after a stone comes out, and every 6?12 months after that. ? Strain your pee every time you pee (urinate), for as long as told. Use the strainer that your doctor recommends. ? Do not throw out the stone. Keep it so that it can be tested by your doctor. ? Keep all follow-up visits as told by your doctor. This is important. You may need follow-up tests. How is this prevented? To prevent another kidney stone: ? Drink enough fluid to keep your pee pale yellow. This is the best way to prevent kidney stones. ? Eat healthy foods. ? Avoid certain foods as told by your doctor. You may be told to eat less protein. ? Stay at a healthy weight. Where to find more information ? National Kidney Foundation (NKF): www.kidney.org ? U[employer] Foundation (UCF): www.urologyhealth.org Contact a doctor if: ? You have pain that gets worse or does not get better with medicine. Get help right away if: ? You have a fever or chills. ? You get very bad pain. ? You get new pain in your belly (abdomen). ? You pass out (faint). ? You cannot pee. Summary ? Kidney stones are rock-like masses that form inside of the kidneys. ? Kidney stones can cause very bad pain and can block the flow of pee. ? The stones will often pass out of the body through peeing. ? Drink enough fluid to keep your pee pale yellow. This information is not intended to replace advice given to you by your health care provider. Make sure you discuss any questions you have with your health care provider. Document Released: 12/27/2008 Document Revised: 11/27/2019 Document Reviewed: 11/27/2019 [employer] Patient Education ? 2019 [employer]. Celina Gore [facility] Urology Office/Clinic Noteon 10-22-2022 Urology Office/Clinic Note Chief Complai nt 6 month f/u HPI Staff 6m KUB due to Ureteral Stone. Pt's PCP ordered Renal US. Pt did not get KUB done. Stone Analysis done 04/06/22 *No Urology Medications Pt referred to Dr Woods at time of last encounter due to inguinal hernia. S/P Inguinal Hernia Repair done 04/2022. Dysuria: no Incomplete bladder emptying: no Hematuria: no Frequency: no Urgency: no Nocturia: 1-2x Stream: good steady stream Leaking: no Post void dripping: no Wearing pads/ Depends: no Urge incontinence: no Stress incontinence: no Incontinence without Sensory Awareness: no Abdominal pain: mid lower abdominal for about 3 weeks Flank pain: right sided that comes and goes with activity for about the last 3 weeks Sexual complaints: no History of Present Illness Tests reviewed: Reviewed UA. I have reviewed the previous health record information and history for this patient from Dr. Alfonso. I have reviewed and verified the staff HPI to be accurate for this encounter. There have been no associated fever, chills, flank pain, or blood in the urine. Denies any urinary infections since last encounter. Review of Systems PHQ Score Initial Depression Screen Score: 0 ROS - Provider Constitutional: denies weight loss, denies hot flashes. Eyes: denies eye problems. Gastrointestinal: denies nausea, denies vomiting. Cardiovascular: denies chest pain or angina. Integumentary: no dryness Musculoskeletal: denies musculoskeletal symptoms. ENMT: denies otolaryngeal symptoms. Respiratory: no shortness of breath. Heme/Lymph: denies easy bleeding tendency, denies easy bruising tendency. Psychiatric: no confusion, no anxiety. Genitourinary: denies dysuria, denies hematuria, denies discharge, denies urinary frequency, denies urinary hesitancy, denies nocturia, denies incontinence, denies genital sores, denies decreased libido, and denies erectile dysfunction. Physical Exam Vitals & Measurements HR: 68(Peripheral) RR: 16 BP: 120/83 HT: 71 in HT: 180 cm WT: 103.2 kg WT: 227.04 lb BMI: 31.85 General Appearance: alert, no distress, well nourished, well developed male. Genitourinary: normal scrotum, normal testes, normal urethra, normal epididymis, normal vas deferens/spermatic cord. Flank Pain: moderate-severe right sided pain that radiates down his leg. Tender on exam today. Bladder: nonpalpable. Assessment/Plan 1. Ureteral stone (N20.1: Calculus of ureter) Presented to [facility] ER on 04/04/22 due to right-sided flank pain along w/ nausea. No hx of stones. CT scan shows minimal right hydro and right ureter secondary to a partially obstructing 2 mm stone at the ureterovesical junction. Patient passed the stone. Stone analysis states it was too small to measure or weigh. 2. Kidney stone (N20.0: Calculus of kidney) Patient states he had imaging done through [facility] roughly a month ago and he was told he has an 8 mm stone along with kidney lesions . Report faxed to our office today, will wait for it drop into patient's chart to review[facility] report to Dr. Alfonso personally. Their office states that the KUB shows a left renal mass or lesions. Renal US negative for right or left sided renal mass. Right sided 8 mm stone. Patient aware an 8 mm stone requires treatment, most likely ESWL. I explained to patient that you cannot suggest a mass or lesion via abdominal XR. Reports of right sided flank pain associated with activity, shares the pain can be severe and it goes down his leg. States it has woke up him during the night. Patient states it does not feel similar to kidney stone pain, more of a cramp. Has been taking Tylenol for pain. Explained to patient that it sounds like he has a herniated disc in his back. Tender on exam today. He would need an MRI to eval further. -Will order KUB to be done @ [facility] today. If stone is visible we will schedule ESWL. Contrast dye w/ ESWL if stone is not visible on KUB. The procedure risks, benefits, details and treatment alternatives have been discussed with the patient. These include blood in the urine, infection, bleeding around the kidney, kidney bruising, inability to break up the stone, need for blood transfusion, blockage from stone fragments, and need for additional procedures, among others. Full informed consent has been obtained. Will order General anesthesia. 3. Inguinal hernia (K40.90: Unilateral inguinal hernia, without obstruction or gangrene, not specified as recurrent) S/p inguinal hernia repair done 04/[address] Woods. Follow-up With When Contact Information Patrick ALFONSO MD, URL [address] [place] [address]- Additional Instructions: KUB to be done today, schedule R ESWL Patient Education Kidney Stones, Nifj-an-Mzat ISylvia, personally scribed for Dr. Alfonso on 10/22/2022 09:36:59. . Documentation recorded by the Sylvia abreu accura (more content not included)... Normal [facility] Comment on above: Result Comment: Elec tronically Signed By: Patrick ALFONSO MD\.br\Date and Time Signed: 10/22/22 09:59 EDT\.br\Electronically Co-Signed By: Sylvia Piña\.br\Date and Time Co-Signed: 10/22/22 09:42 EDT\.br\Electronically Co-Signed By: Sylvia Piña\.br\Date and Time Co-Signed: 10/22/22 09:55 EDT XR ribs RT min 3V w CXR1V*on 10-21-2022 XR ribs RT min 3V w CXR1V* [facility] Main [place] [address] [place] [address] XRay Report Signed Patient: Brian Tse MR#: [id number] : 1980 Acct:[id number] Age/Sex: 41 / M ADM Date: 10/21/22 Loc: XDUCLY Room: Type: [facility] Attending Dr: Domonique Myers APRN Copies to: Domonique Myers APRN Ordering Provider: Domonique Myers APRN Date of Service: 10/21/22 XR/XR ribs RT min 3V w CXR1V*: RIGHT RIB PAIN PA CHEST WITH RIGHT RIBS: CLINICAL HISTORY: Patient fell landing on the right side on a hover board. Pain at the anterolateral right lower ribs. Difficulty taking a deep breath. COMPARISON: None The chest film shows no infiltrate, effusion or pneumothorax. The cardiac, hilar and mediastinal silhouettes are within normal limits. No vascular congestion is seen. AP and both oblique views of the right ribs show no obvious acute displaced fractures or bony destruction. XR/XR ribs RT min 3V w CXR1V* IMPRESSION: NO ACUTE CARDIOPULMONARY FINDINGS. NO DEFINITE RIB FRACTURES. Impression dictated by: Linda Sierra M.D.10/21/2022 2:10 PM Dictation Location: [place] [address] Transcribed By: [facility] 10/21/22 1410 Dictated By: Linda Sierra MD 10/21/22 1406 Signed By: 10/21/22 1410 [facility] General Surgery Office/Clini c Noteon 06-25-2022 General Surgery Office/Clinic Note Chief Complaint post operative follow up HPI Staff 5 week post operative follow up post left inguinal hernia repair. Denies pain, bleeding or drainage. History of Present Illness 5 weeks s/p LIHR with mesh; doing well, mild soreness with activity; no pain meds, no drainage from incision. Review of Systems ROS - Provider Constitutional: no fever, no sweats, no weight loss. Eyes: no glasses, no blurred vision, no visual loss. ENMT: no dentures, no hoarseness, no swallowing difficulties, no hearing loss, no ear infection(s), no nose bleeds. Cardiovascular: normal blood pressure, no chest pain, regular heartbeat, no heart murmur. Respiratory: no shortness of breath, no cough, no asthma, no wheezing. Gastrointestinal: no nausea, no vomiting, no diarrhea, no constipation, no blood in stool, no change in bowel habits, no abdominal pain, no hepatitis. Genitourinary: no kidney stones, no urine infection, no dysuria. Musculoskeletal: no pain, no weakness. Skin: no changing moles, no rash, no skin lumps. Neurologic: no seizures, no epilepsy, no headache. Psychiatric: no emotional or psychiatric problem. Heme/Lymph: no bleeding problems, no anemia, no blood clots, no transfusions. Allergy/Immunologic: no swollen lymph nodes/glands, no IV drug abuse. Other: Additional ROS info: Except as noted in the above Review of Systems and in the History of Present Illness, all other systems have been reviewed and are negative or noncontributory. Physical Exam abd: incision healing well, no erythema or drainage, no ecchymoses; nontender. Assessment/Plan 1. Reducible left inguinal hernia (K40.90: Unilateral inguinal hernia, without obstruction or gangrene, not specified as recurrent) Follow-up No qualifying data available Problem List/Past Medical History Ongoing BMI 31.0-31.9,adult Inguinal hernia Reducible left inguinal hernia Smoker Smoker Tobacco use Historical Candidal balano-posthitis DM (diabetes mellitus) Elevated liver enzymes Major depressive disorder, single episode Uncontrolled diabetes mellitus Ureteral stone Procedure/Surgical History Laparoscopy, surgical; repair initial inguinal hernia (05/20/2022), Harris bunionectomy, right (02/27/2015), Harris bunionectomy, left foot (01/02/2015), Hemorrhoidectomy (10/2012), Cholecystectomy, Circumcision, Colonoscopy, Colonoscopy, Extn - Extraction of tooth, Lateral sphincterotomy, removal of ingrown toenail. Medications GlyBURIDE (Eqv-Micronase) 5 mg oral tablet, 5 mg= 1 tab(s), Oral, BID Allergies metFORMIN (Diarrhea) Social History Alcohol - Denies Alcohol Use, 11/30/2017 Current, Beer, Alcohol use interferes with work or home: No. Drinks more than intended: No. Others hurt by drinking: No. Ready to change: No. Household alcohol concerns: No., 07/26/2018 Substance Abuse - Denies Substance Abuse, 02/15/2011 Current, 09/20/2019 Current, 09/13/2017 Tobacco - High Risk, 05/10/2015 10 or more cigarettes (1/2 pack or more)/day in last 30 days Tobacco Use:. Never Smokeless Tobacco Use:. Cigarettes, 1 per day. Started age 11.0 Years. Yes, 04/27/2022 Family History Cancer: Sister. Diabetes mellitus type 2: Mother. Esophageal cancer: Father. Heart disease: Mother. [facility] Comment on above: Result Comment: Elec tronically Signed By: Nicky WOODS MD\.br\Date and Time Signed: 06/25/22 16:46 EST Provider Letteron 06-25-2022 Provider Letter (Inserted Image. Alka ble to display) June 25, 2022 [address]AN [address] [place] [address] BRIAN TSE 1980 To Whom It May Concern, Please excuse above patient from work. Date of Illness: From: _04/27/2022 To: _06/25/2022 May Return to Work On: 06/28/22 Restrictions: No restrictions Sincerely, Dr Nicky Woods [facility] Provider Letter (Inserted Image. Alka ble to display) June 25, 2022 [place] [address] BRIAN TSE 1980 To Whom It May Concern, Please excuse above patient from work. Date of Illness: From: _04/27/2022 To: _06/25/2022 May Return to Work On: 06/28/22 Restrictions: No restrictions Since[facility], [facility] Provider Letter (Inserted Image. Alka ble to display) June 25, 2022 [place] [address] BRIAN TSE 1980 To Whom It May Concern, Please excuse above patient from work. Date of Illness: From: _04/27/2022 To: _06/25/2022 May Return to Work On: 06/28/22 Restrictions: No restrictions Sincerely, Dr Nicky Gore [place] [facility] Ambulatory Visit Summaryon 1 08-02-2021 Ambulatory Visit Summary BRIAN TSE :1980 Visit Date:06/02/2022 Ambulatory Visit Instructions Your Care Team Attending Physician - Nicky WOODS MD Primary Care Physician - SALBADOR HERNANDEZ CNP This Is Your Medications List glyBURIDE (GlyBURIDE (Eqv-Micronase) 5 mg oral tablet) Procedures Performed Laparoscopy, surgical; repair initial inguinal hernia (05/20/2022), Harris bunionectomy, right (02/27/2015), Harris bunionectomy, left foot (01/02/2015), Hemorrhoidectomy (10/2012), Cholecystectomy, Circumcision, Colonoscopy, Colonoscopy, Extn - Extraction of tooth, Lateral sphincterotomy, removal of ingrown toenail. What to do next Scheduled Follow-Up Appointments Tuesday 2:40 PM EST With: Nicky WOODS MD Where: General [facility] Normal [address] [place] [address]- \.br\ Medications\.br\ What How Much When Instructions\.br\ Unchanged glyBURIDE (GlyBURIDE (Eqv-Micronase) 5 mg oral tablet) 1 Tablets By Mouth 2 times a day\.br\ Allergies\.br\ metFORMIN (Diarrhea)\.br\ Problems\.br\ Ongoing - Any problem that you are currently receiving treatment for.\.br\ BMI 31.0-31.9,adult\.br\ Inguinal hernia\.br\ Reducible left inguinal hernia\.br\ Smoker\.br\ Smoker\.br\ Tobacco use\.br\ Historical - Any problem that you are no longer receiving treatment for.\.br\ Candidal balano-posthitis\.br\ DM (diabetes mellitus)\.br\ Elevated liver enzymes\.br\ Major depressive disorder, single episode\.br\ Uncontrolled diabetes mellitus\.br\ Ureteral stone\.br\ \.br\ [facility] General Surgery Office/Clini c Noteon 06-02-2022 General Surgery Office/Clinic Note Chief Complaint post operative follow up HPI Staff 13 day post operative follow up post left inguinal hernia repair. Minimal discomfort, taking Ibuprofen BID-TID. Denies bleeding or drainage. Bowels moving well. Urinating without difficulty. History of Present Illness almost 2 weeks s/p LIHR with mesh; doing well, mild soreness, controlled with ibuprofen; no drainage from incision; normal bms, eating well. Review of Systems ROS - Provider Constitutional: no fever, no sweats, no weight loss. Eyes: no glasses, no blurred vision, no visual loss. ENMT: no dentures, no hoarseness, no swallowing difficulties, no hearing loss, no ear infection(s), no nose bleeds. Cardiovascular: normal blood pressure, no chest pain, regular heartbeat, no heart murmur. Respiratory: no shortness of breath, no cough, no asthma, no wheezing. Gastrointestinal: no nausea, no vomiting, no diarrhea, no constipation, no blood in stool, no change in bowel habits, no abdominal pain, no hepatitis. Genitourinary: no kidney stones, no urine infection, no dysuria. Musculoskeletal: no pain, no weakness. Skin: no changing moles, no rash, no skin lumps. Neurologic: no seizures, no epilepsy, no headache. Psychiatric: no emotional or psychiatric problem. Heme/Lymph: no bleeding problems, no anemia, no blood clots, no transfusions. Allergy/Immunologic: no swollen lymph nodes/glands, no IV drug abuse. Other: Additional ROS info: Except as noted in the above Review of Systems and in the History of Present Illness, all other systems have been reviewed and are negative or noncontributory. Physical Exam abd: soft, normal bs, nontender, nondistended, incision without erythema or drainage, no ecchymoses; minimal induration Assessment/Plan 1. Reducible left inguinal hernia (K40.90: Unilateral inguinal hernia, without obstruction or gangrene, not specified as recurrent) doing well, continue no lifting > 10 lbs for 2 weeks; follow up in 2 weeks; call sooner if problems/questions. Follow-up No qualifying data available Problem List/Past Medical History Ongoing BMI 31.0-31.9,adult Inguinal hernia Reducible left inguinal hernia Smoker Smoker Tobacco use Historical Candidal balano-posthitis DM (diabetes mellitus) Elevated liver enzymes Major depressive disorder, single episode Uncontrolled diabetes mellitus Ureteral stone Procedure/Surgical History Laparoscopy, surgical; repair initial inguinal hernia (05/20/2022), Harris bunionectomy, right (02/27/2015), Harris bunionectomy, left foot (01/02/2015), Hemorrhoidectomy (10/2012), Cholecystectomy, Circumcision, Colonoscopy, Colonoscopy, Extn - Extraction of tooth, Lateral sphincterotomy, removal of ingrown toenail. Medications GlyBURIDE (Eqv-Micronase) 5 mg oral tablet, 5 mg= 1 tab(s), Oral, BID Allergies metFORMIN (Diarrhea) Social History Alcohol - Denies Alcohol Use, 11/30/2017 Current, Beer, Alcohol use interferes with work or home: No. Drinks more than intended: No. Others hurt by drinking: No. Ready to change: No. Household alcohol concerns: No., 07/26/2018 Substance Abuse - Denies Substance Abuse, 02/15/2011 Current, 09/20/2019 Current, 09/13/2017 Tobacco - High Risk, 05/10/2015 10 or more cigarettes (1/2 pack or more)/day in last 30 days Tobacco Use:. Never Smokeless Tobacco Use:. Cigarettes, 1 per day. Started age 12.0 Years. Yes, 04/27/2022 Family History Cancer: Sister. Diabetes mellitus type 2: Mother. Esophageal cancer: Father. Heart disease: Mother. [facility] Comment on above: Result Comment: Elec tronically Signed By: SANFORD CORONEL, Nicky Armendariz.willy\Date and Time Signed: 06/02/22 17:25 EST Operative Reporton Operative Report Patient: CAMILLE TSE Age: 41 years Sex: Male : 1980 Associated Diagnoses: None Author: Ray Thompson Jr, DO Postoperative Information Date/ Time: 05/20/2022 12:23:00 Preoperative Diagnosis: Acute postoperative pain.. Postoperative Diagnosis: Acute postoperative pain. Procedure: TAP block. Anesthesia Method: Local, Monitored anesthesia care. Performed by: Ray Thompson Jr, DO. Medications Complications: None. Notes: The patient was interviewed and examined prior to the planned operation. Anesthesia options were discussed including TAP block for postoperative analgesia. This discussion included a description of the procedure, risks and benefits, as well as alternatives to the block. The patients questions were addressed and the patient elected to proceed with the TAP block. The patient was placed in the supine position and monitored with continuous pulse oximetry, non-invasive blood pressure, and electrocardiography. The patient was then induced for general anesthesia and preparations for the proposed operation continued. The LEFT ABDOMEN AND FLANK AREA was prepped with ChloraPrep and sterilely draped. Anatomical landmarks were identified with ultrasonographic guidance. A 2 x 22 gauge Stimuplex needle was inserted without pain or paresthesias. Following a negative attempted aspiration for blood,e XParel 1.3% with 0.25% bupivicaine was slowly injected with to a total volume of _35_ cc. Periodic negative attempts at aspiration for blood were made as the local was injected. The patient tolerated the procedure well. . Normal [facility] Comment on above: Result Comment: Elec tronically Signed By: Ray Thompson Jr, DO\.br\Date and Time Signed: 05/31/22 14:23 EST Progress Note-Physicianon Progress Note-Physician Patient: BRIAN TSE Age: 41 years Sex: Male : 1980 Associated Diagnoses: None Author: Ray Thompson Jr, DO Preoperative Information Time patient last ate or drank:=== (npo 8 hours) Anesthesia history: Patient history: No prior anesthesia problems. Re-evaluation prior to induction: Completed, Initial evaluation reviewed. Review of Systems Respiratory: No shortness of breath. Cardiovascular: No chest pain. Hematology/Lymphatics: No bruising tendency, No bleeding tendency. Health Status Allergies: Allergic Reactions (All) Severity Not Documented MetFORMIN- Diarrhea. Canceled/Inactive Reactions (All) No Known Allergies No Known Medication Allergies Percocet 5/325- Nightmares. Current medications: (Selected) Inpatient Medications Ordered Lactated Ringers IV Sara 1000 mL 1,000 mL: 1,000 mL, IV, 150 mL/hr, Routine, Start date 05/20/22 9:30:00 EDT, 6.7 hour(s), Total volume (mL): 1,000, 101.4 kg, 2.25, m2 cefazolin additive + Sodium Chloride 0.9% intravenous solution 50 mL: 2 gram = 1 EA, Powder-Inj, IV Piggyback, PREOP, Routine, Start date 05/20/22 9:30:00 EDT, 100 mL/hr, Infuse over 30 minute(s) Documented Medications Documented GlyBURIDE (Eqv-Micronase) 5 mg oral tablet: 5 mg = 1 tab(s), Oral, BID, Refills(s) 0, Blood glucose Problem list: All Problems BMI 31.0-31.9,adult / SNOMED CT 752647059 / Confirmed Inguinal hernia / SNOMED CT 0777107838 / Confirmed Reducible left inguinal hernia / SNOMED CT 649355057 / Confirmed Obesity / ICD-9-CM 278.00 / Possible Smoker / SNOMED CT 645700832 / Confirmed Added secondary to documentation in Social History. Smoker / SNOMED CT [id number] / Confirmed Added secondary to documentation in Social History. Tobacco use / SNOMED CT 804238124 / Confirmed Tobacco use / SNOMED CT [id number] / Confirmed Added secondary to social history documentation. Resolved: Candidal balano-posthitis / SNOMED CT 485066719 Resolved: Uncontrolled diabetes mellitus / SNOMED CT 030892087 Resolved: DM (diabetes mellitus) / SNOMED CT 8S019N1K-[id number]-S953G70349Y0 Resolved: Elevated liver enzymes / SNOMED CT 7895073941 Resolved: Major depressive disorder, single episode / SNOMED CT 49451551 Resolved: Ureteral stone / SNOMED CT 60812593 Canceled: Acute anal fissure / SNOMED CT 815514153 Canceled: Cholelithiasis / SNOMED CT 452056002 Canceled: Chronic headaches / SNOMED CT 211YI3D2-CY95-3O0F-1586-18TGGX1DWD9N Canceled: Crohn disease / SNOMED CT 79327844 Canceled: Elevated blood pressure reading / SNOMED CT 138433276 Canceled: Fever / SNOMED CT 8216987805 Canceled: Hallux valgus of right foot / SNOMED CT 456655552 Canceled: Headache / SNOMED CT 10484402 Canceled: Hemorrhoid / SNOMED CT 331539181 Canceled: None / SNOMED CT 678561231 Canceled: Pneumonia / SNOMED CT 553711276 years ago 24 yo Canceled: Rectal bleeding / SNOMED CT 09053049 Histories Past Medical History: Resolved DM (diabetes mellitus) ([id number]): Resolved. Candidal balano-posthitis (865477673): Resolved. Uncontrolled diabetes mellitus (599047334): Resolved. Elevated liver enzymes (1281682343): Resolved. Major depressive disorder, single episode (03395244): Resolved. Ureteral stone (97421520): Resolved. Family History: Cancer Sister Esophageal cancer Father Heart disease Mother Diabetes mellitus type 2 Mother Procedure history: Harris bunionectomy, right on 02/27/2015 at 34 Years. Harris bunionectomy, left foot on 01/02/2015 at 34 Years. Hemorrhoidectomy (26901949) in the month of 10/2012 at 32 Years. Extn - Extraction of tooth (8219179899). Colonoscopy (500344287). Lateral sphincterotomy (515707823). removal of ingrown toenail. Comments: 12/27/2014 12:24 EDT - Lashawn Banegas RN left great toe Cholecystectomy (19254111). Colonoscopy (178735249). Circumcision as an adult (729112973). Social History Social & Psychosocial Habits Alcohol 11/30/2017 Risk Assessment: Denies Alcohol Use 07/26/2018 Use: Current Type: Beer Has alcohol use interfered with work or home life? No Do you ever drink more than intended? No Has anyone been hurt or at risk by your drinking? No Ready to change: No Concerns about alcohol use in household: No Comment: couple beers a week - 07/26/2018 23:57 - Melvin Hopkins RN Substance Abuse 02/15/2011 Risk Assessment: Denies Substance Abuse 09/13/2017 Use: Current Comment: denied - 09/13/2017 09:11 - Krys Miner RN Comment: denies - 11/23/2018 12:51 - Lucy Devlin RN 09/20/2019 Use: Current Comment: Denies - 09/20/2019 22:17 - Li Emanuel RN Tobacco 05/10/2015 Risk Assessment: High Risk 04/27/2022 Tobacco Use: 10 or more cigarettes (1/ Smokeless tobacco use: Never Type: Cigarettes Tobacco use per day: 1 Started [age] age: 12.0 Years Smoking Cessation Yes C (more content not included)... Normal [facility] Comment on above: Result Comment: Elec tronically Signed By: Ray Thompson Jr, DO\.br\Date and Time Signed: 05/31/22 14:23 EST Progress Note-Physician Patient: BRIAN TSE Age: 41 years Sex: Male : 1980 Associated Diagnoses: None Author: Ray Thompson Jr, DO Postoperative Information Post Operative Note: Post Anesthesia Care Unit. Anesthetic utilized: General. Health Status Allergies: Allergic Reactions (Selected) Severity Not Documented MetFORMIN- Diarrhea. Problem list: All Problems BMI 31.0-31.9,adult / SNOMED CT 813826573 / Confirmed Inguinal hernia / SNOMED CT 9154993031 / Confirmed Reducible left inguinal hernia / SNOMED CT 392573351 / Confirmed Obesity / ICD-9-CM 278.00 / Possible Smoker / SNOMED CT 810515275 / Confirmed Added secondary to documentation in Social History. Smoker / SNOMED CT [id number]-JRG0D4402PK3 / Confirmed Added secondary to documentation in Social History. Tobacco use / SNOMED CT 125941738 / Confirmed Tobacco use / SNOMED CT [id number] / Confirmed Added secondary to social history documentation. Resolved: Candidal balano-posthitis / SNOMED CT 060910498 Resolved: Uncontrolled diabetes mellitus / SNOMED CT 189587684 Resolved: DM (diabetes mellitus) / SNOMED CT 1J031M0U-[id number]-Q149A86962J5 Resolved: Elevated liver enzymes / SNOMED CT 0238802288 Resolved: Major depressive disorder, single episode / SNOMED CT 49323418 Resolved: Ureteral stone / SNOMED CT 42978140 Canceled: Acute anal fissure / SNOMED CT 614940923 Canceled: Cholelithiasis / SNOMED CT 745535196 Canceled: Chronic headaches / SNOMED CT 094KD6W4-MH31-4S8Z-3284-26GBCE5VWG1P Canceled: Crohn disease / SNOMED CT 29639141 Canceled: Elevated blood pressure reading / SNOMED CT 589101227 Canceled: Fever / SNOMED CT 1341399947 Canceled: Hallux valgus of right foot / SNOMED CT 548693462 Canceled: Headache / SNOMED CT 10626607 Canceled: Hemorrhoid / SNOMED CT 112243150 Canceled: None / SNOMED CT 176197927 Canceled: Pneumonia / SNOMED CT 616523618 years ago 24 yo Canceled: Rectal bleeding / SNOMED CT 64832689 Physical Examination Vital Signs 05/20/2022 14:41 EDT Temperature Temporal Artery 36.7 DegC Heart Rate Monitored 70 bpm Respiratory Rate 16 br/min Systolic Blood Pressure 135 mmHg Diastolic Blood Pressure 83 mmHg Blood Pressure Location Left arm SpO2 99 % 05/20/2022 14:38 EDT Temperature Temporal Artery 36.4 DegC Heart Rate Monitored 67 bpm Respiratory Rate Monitored 14 br/min Systolic Blood Pressure 122 mmHg Diastolic Blood Pressure 85 mmHg SpO2 100 % 05/20/2022 14:25 EDT Heart Rate Monitored 57 bpm LOW Respiratory Rate Monitored 11 br/min Systolic Blood Pressure 132 mmHg Diastolic Blood Pressure 85 mmHg SpO2 100 % 05/20/2022 14:15 EDT Heart Rate Monitored 70 bpm Respiratory Rate Monitored 15 br/min Systolic Blood Pressure 129 mmHg Diastolic Blood Pressure 80 mmHg SpO2 100 % 05/20/2022 14:05 EDT Heart Rate Monitored 67 bpm Respiratory Rate Monitored 17 br/min Systolic Blood Pressure 129 mmHg Diastolic Blood Pressure 90 mmHg SpO2 100 % 05/20/2022 13:55 EDT Heart Rate Monitored 73 bpm Respiratory Rate Monitored 13 br/min Systolic Blood Pressure 105 mmHg Diastolic Blood Pressure 77 mmHg SpO2 100 % 05/20/2022 13:50 EDT Heart Rate Monitored 52 bpm LOW Respiratory Rate Monitored 12 br/min Systolic Blood Pressure 103 mmHg Diastolic Blood Pressure 66 mmHg SpO2 100 % 05/20/2022 13:45 EDT Heart Rate Monitored 51 bpm LOW Respiratory Rate Monitored 12 br/min Systolic Blood Pressure 103 mmHg Diastolic Blood Pressure 62 mmHg SpO2 100 % 05/20/2022 13:41 EDT Temperature Temporal Artery 36.4 DegC Heart Rate Monitored 60 bpm Respiratory Rate Monitored 20 br/min Systolic Blood Pressure 105 mmHg Diastolic Blood Pressure 65 mmHg Blood Pressure Location Left arm SpO2 98 % 05/20/2022 13:35 EDT Heart Rate Monitored 80 bpm bpm Respiratory Rate 14 br/min br/min Systolic Blood Pressure 89 mmHg mmHg Diastolic Blood Pressure 61 mmHg mmHg SpO2 97 % % 05/20/2022 13:30 EDT Heart Rate Monitored 76 bpm bpm Respiratory Rate 12 br/min br/min Systolic Blood Pressure 84 mmHg mmHg Diastolic Blood Pressure 54 mmHg mmHg SpO2 97 % % 05/20/2022 13:25 EDT Heart Rate Monitored 76 bpm bpm Respiratory Rate 12 br/min br/min Systolic Blood Pressure 90 mmHg mmHg Diastolic Blood Pressure 52 mmHg mmHg SpO2 97 % % 05/20/2022 13:20 EDT Heart Rate Monitored 80 bpm bpm Respiratory Rate 12 br/min br/min Systolic Blood Pressure 97 mmHg mmHg Diastolic Blood Pressure 55 mmHg mmHg SpO2 97 % % 05/20/2022 13:15 EDT Heart Rate Monitored 81 bpm bpm Respiratory Rate 12 br/min br/min Systolic Blood Pressure 96 mmHg mmHg Diastolic Blood Pressure 54 mmHg mmHg SpO2 97 % % 05/20/2022 13:10 EDT Heart Rate Monitored 85 bpm bpm Respiratory Rate 12 br/min br/min Systolic Blood Pressure 110 mmHg mmHg Diastolic Blood Pressure 61 mmHg mmHg SpO2 97 % % 05/20/2022 13:05 EDT Heart Rate Monitored 90 bpm bpm Respirat (more content not included)... Normal [facility] Comment on above: Result Comment: Elec tronically Signed By: Ray Thompson Jr, DO\.br\Date and Time Signed: 05/31/22 14:23 EST IntraOperative Documentson 1 07-27-2021 IntraOperative Documents [id number]#1.00CD:127 [facility] Coding Summary.on 05-25-2022 Coding Summary. CD:[id number] [file] eWxl (more content not included)... Normal [facility] Main OR Intraoperative Recor don 05-25-2022 Main OR Intraoperative Record Normal [facility] Consent for Anesthesiaon Consent for Anesthesia [id number]#1.00CD:[address] [facility] Discharge Instructionson Discharge Instructions [id number]#1.00CD:[address] [facility] IntraOperative Documentson 1 IntraOperative Documents [id number]#1.00CD:[address] [facility] IntraOperative Documents [id number]#1.00CD:[address] [facility] Operative Reporton Operative Report SURGERY DATE: 2021 PREOPERATIVE DIAGNOSIS: Left inguinal hernia POSTOPERATIVE DIAGNOSIS: Left inguinal hernia with small indirect hernia and cord lipoma OPERATION: Left inguinal herniorrhaphy with Bard Prolene mesh insertion ANESTHESIA: General endotracheal as well as a left-sided TAP block ANESTHESIOLOGIST: Ray Thompson Jr., D.O. ESTIMATED BLOOD LOSS: Less than 5 mL INDICATIONS AND CONSENT: The patient is a 41-year-old male with history of symptomatic reducible left inguinal hernia. Indications, risks, benefits, alternatives of proceeding with herniorrhaphy with mesh insertion were explained extensively to the patient including risks of bleeding, infection, scarring, pain, nerve injury, testicular injury, blood clot, pulmonary embolus, heart attack, anesthetic complications, need for further surgery or mesh removal. All of his questions were answered. Informed consent was obtained. PROCEDURE: The patient was brought to the Operating Room and placed in the supine position. General anesthesia was induced. Left-sided TAP block was performed by Dr. Thompson. The patient was prepped and draped in the usual sterile fashion. A left groin incision was made in the area of the skin crease and carried down through subcutaneous tissue using blunt dissection and sharp dissection. Carine's fascia was divided. External oblique was identified and opened along the direction of its fibers down through the external inguinal ring. Cord structures were mobilized and retracted with a Barbara drain. There was noted to be a cord lipoma as well as a small indirect hernia. These were freed up from the cord structures and reduced back through the internal ring. There was some mild weakness of the floor but no true direct hernia. The wound was irrigated with antibiotic saline. The Prolene 10 x 5 cm mesh was trimmed and a keyhole was created for the cord structures. It was placed on the floor of the inguinal canal. The arms were placed around the cord structures. This was then secured circumferentially using interrupted 3-0 Vicryl sutures. Care was taken to avoid undue tension on the cord structures. Once this was completed, the external oblique was closed with a running 3-0 Vicryl suture. The remaining Exparel solution was injected in the subcutaneous tissues. Carine's fascia was reapproximated with interrupted 3-0 Monocryl sutures. The skin was then closed with a running 4-0 subcuticular Monocryl suture and skin glue. Sterile pressure dressing was applied. Sponge and needle counts were correct x2 per nursing personnel. The patient tolerated the procedure well, was extubated and sent to Recovery Room in good condition. Nicky Woods M.D. FACS ls Dictated: 05/20/2022 [id number] Transcribed: 05/21/2022 *Salbador Hernandez CNP [facility] Comment on above: Result Comment: Elec tronically Signed By: SANFORD CORONEL, Nicky Guidry\.br\Date and Time Signed: 05/21/22 15:22 EDT Pre-Certification Formon Pre-Certification Form [id number]:127 [facility] Preoperative Documentson Preoperative Documents [id number]#1.00CD:127 [facility] CHEMISTRYOrdered By: Lab ROP User on 05-20-2022 Glucose [Mass/Vol] 173 mg/dL High 55 - 99 mg/dL FT C POC Subsection Comment on above: Result Comment: Dayanara BAUTISTA POC Device SN [id number] Invalid Interpretation Code [facility] [place] Subsection POC User ID [id number] Invalid Interpretation Code [facility] Subsection POC Username CHINEDU POSADAS Invalid Interpretation Code [facility] Subsection Capillary Glucose POCon 04-25 Glucose [Mass/Vol] 173 mg/dL High 55-[address] [facility] Comment on above: Result Comment: Dayanara BAUTISTA Performed By: #### 2 [id number] ####[facility] [id number] [place] [id number] Consent for Treatmenton 04-25 Consent for Treatment [id number]#1.00CD:[address] [facility] Inpatient Patient Summaryon 05-20-2022 Inpatient Patient Summary [address] [address] [facility] Clinical Discharge Instructions PERSON INFORMATION Name: BRIAN TSE PHYSICIANS Admitting Physician: Nicky WOODS MD Attending Physician: Nicky WOODS MD PCP: SALBADOR HERNANDEZ CNP Discharge Diagnosis: Indirect left inguinal hernia Comment: PATIENT EDUCATION INFORMATION Instructions: Medication Leaflets: Follow up: With: Address: When: Nicky WOODS [address] [place] [address], [address], [address] [address] Business (1) Within 7 to 10 days Type Location Start Finish State [facility] Office Visit [facility] 10/22/2022 8:45 AM 10/22/2022 9:00 AM Confirmed MEDICATION LIST New Medications [id number], [address], [place] [id number], [phone] acetaminophen-oxycodone (Percocet 325 mg-5 mg Tab) 1 Tablets By Mouth every 3 hours as needed Pain. take with food or milk. Refills: 0. Medications to Continue with No Changes Other Medications glyBURIDE (GlyBURIDE (Eqv-Micronase) 5 mg oral tablet) 1 Tablets By Mouth 2 times a day. Comment: Normal [facility] Main OR PACU I Recordon 04-25 Main OR PACU I Record PACU Phase I Docum ent Type FT Summary Primary Physician: Nicky WOODS MD Finalized Date/Time: 05/20/22 14:31:51 Pt. Name: BRIAN TSE /Sex: 1980 Male Med Rec #: [id number] Physician: Nicky WOODS MD Financial #: [id number] Pt. Type: A Room/Bed: Admit/Disch: 05/20/22 09:41:13 - Institution: Case Times PACU I FT Pre-Care Text: Identifies barriers to communication and implements measures to provide psychological support Develops individualized plan of care, and ensures continuity of care Maintains patient's dignity and privacy, and maintains patient confidentiality Identifies and reports philosophical, cultural, and spiritual beliefs and values Identifies individual values and wishes concerning care Implements aseptic technique, and administers prescribed antibiotic therapy and immunizing agents as ordered Evaluates postoperative tissue perfusion Implements thermoregulation measures, and monitors body temperature Evaluates postoperative respiratory status Evaluates postoperative cardiac status Evaluates postoperative neurological status Assesses pain control, collaborated in initiating patient-controlled analgesia and implements alternative methods of pain control Verifies allergies, administers prescribed medications and solutions, evaluates response to medications Entry 1 In PACU I 05/20/22 13:41:00 Discharge from PACU 05/20/22 14:41:00 I Outcomes Met? Yes Last Modified By: Analisa Maldonado RN 05/20/22 14:31:30 Post-Care Text: The patient demonstrates knowledge of the expected response to the operative or invasive procedure The patient's care is consistent with the individualized perioperative plan of care The patient's right to privacy is maintained The patient's value system, lifestyle, ethnicity, and culture are considered, respected, and incorporated into the perioperative plan of care The patient participates in decisions affecting his or her perioperative plan of care The patient is free from signs and symptoms of infection The patient has wound/tissue perfusion consistent with or improved from baseline levels established preoperatively The patient is at or returning to normothermia at the conclusion of the immediate postoperative period The patient's respiratory function is consistent with or improved from baseline levels established preoperatively The patient's cardiovascular status is consistent with or improved from baseline levels established preoperatively The patient's cardiovascular status is consistent with or improved from baseline levels established preoperatively The patient demonstrates and/or reports adequate pain control throughout the perioperative period The patient received appropriate medication(s), safely administered during the perioperative period Acuity Level PACU I FT Entry 1 Start Time 05/20/22 13:41:00 Stop Time 05/20/22 14:41:00 Acuity Level Acuity Level I Last Modified By: Analisa Maldonado RN 05/20/22 14:31:47 Finalized By: Analisa Maldonado RN Document Signatures Signed By: Analisa Maldonado RN 05/20/22 14:31 Normal [facility] Main OR PACU II Recordon Main OR PACU II Record PACU Phase II Document Type FT Summary Primary Physician: Nicky WOODS MD Finalized Date/Time: 05/20/22 16:22:47 Pt. Name: BRIAN TSE A /Sex: 1980 Male Med Rec #: [id number] Physician: Nicky WOODS MD Financial #: [id number] Pt. Type: A Room/Bed: 09/22 Admit/Disch: 05/20/22 09:41:13 - Institution: Case Times PACU II FT Pre-Care Text: Identifies barriers to communication and implements measures to provide psychological support and determines knowledge level Develops individualized plan of care, and ensures continuity of care Maintains patient's dignity and privacy, and maintains patient confidentiality Identifies and reports philosophical, cultural, and spiritual beliefs and values Identifies individual values and wishes concerning care administers prescribed antibiotic therapy and immunizing agents as ordered, Evaluates postoperative tissue perfusion Implements thermoregulation measures, and monitors body temperature Evaluates postoperative respiratory status Evaluates postoperative cardiac status Evaluates postoperative neurological status Assesses pain control, collaborated in initiating patient-controlled analgesia and implements alternative methods of pain control Verifies allergies, administers prescribed medications and solutions, evaluates response to medications Entry 1 In PACU II 05/20/22 14:42:00 Discharge from PACU 05/20/22 16:25:00 II Outcomes Met? Yes Last Modified By: Lety Henderson LPN 05/20/22 16:22:45 Post-Care Text: The patient demonstrates knowledge of the expected response to the operative or invasive procedure The patient's care is consistent with the individualized perioperative plan of care The patient's right to privacy is maintained The patient's value system, lifestyle, ethnicity, and culture are considered, respected, and incorporated into the perioperative plan of care The patient participates in decisions affecting his or her perioperative plan of care. The patient is free from signs and symptoms of infection The patient has wound/tissue perfusion consistent with or improved from baseline levels established preoperatively The patient is at or returning to normothermia at the conclusion of the immediate postoperative period The patient's respiratory function is consistent with or improved from baseline levels established preoperatively The patient's cardiovascular status is consistent with or improved from baseline levels established preoperatively The patient's neurological status is consistent with or improved from baseline levels established preoperatively The patient demonstrates and/or reports adequate pain control throughout the perioperative period The patient received appropriate medication(s), safely administered during the perioperative period Finalized By: Lety Henderson LPN Document Signatures Signed By: Lety Henderson LPN 05/20/22 16:[address] [facility] Monitor Recordon 05-20-2022 Monitor Record [id number]:[address] [facility] Outpatient Surgery Discharge Instructionon 05-20-2022 Outpatient Surgery Discharge Instruction [place] [address] Patient Discharge Instructions PERSON INFORMATION Name: BRIAN TSE Date of : 1980 Current Date: 05/20/2022 13:51:21 PHYSICIANS Admitting Physician: Nicky WOODS MD Discharge Diagnosis: Indirect left inguinal hernia CARMENCITA JACKY has been given the following list of follow-up instructions, prescriptions, and patient education materials: PATIENT FOLLOW-UP INFORMATION Diet: Regular Discharge Activity: Arrange for a responsible adult supervision for 24 hours Discharge Restrictions: No driving, Do not operate machinery or tools, Do not make important decisions for 24 hours, Do not drink alcoholic beverages for 24 hours Call Your Doctor For: Persistent or heavy bleeding, Temperature above 101.5 degrees, Redness, swelling, or pus at operative site, Severe pain at the operative site, Persistent vomiting Wound Care Instructions: Keep incision dry, Remove dressing as instructed Remove Your Dressing In 1 Days Additional Instructions: may shower tomorrow, remove dressing and leave open to air, no tub baths for 10 days, no lifting > 10 lbs for 4 weeks; take ibuprofen scheduled for 1 week after surgery; no driving while taking the percocet IF UNABLE TO CONTACT YOUR PHYSICIAN AND YOU FEEL IT IS AN EMERGENCY, GO TO THE NEAREST EMERGENCY ROOM OR CALL 911 ICARMENCITA MIGUEL A, have received the attached patient education materials/instructions and have verbalized understanding: May we do a follow up call? Yes No I was present when discharge instructions were given Patient Signature Date Clinican/Nurse Signature Date Follow up: With: Address: When: Nicky Billings, [address], [facility] [address] [place] [address] Business (1) Within 7 to 10 days Type Location Start Finish State [place] Office Visit [facility] [place] 10/22/2022 8:45 AM 10/22/2022 9:00 AM Confirmed Pharmacy Information: You may receive a survey from [email or web address] asking you to rate your care experience. Your feedback is important and will help us understand what we do well and how we can improve the quality of care we provide to you, your loved ones and our community. It?s an honor to serve you. Thank you for choosing [facility] HERE ARE THE MEDICATION CHANGES THAT OCCURRED DURING YOUR HOSPITAL STAY New Medications [id number], [address] [facility] [place], [place] [id number], [phone] acetaminophen-oxycodone (Percocet 325 mg-5 mg Tab) 1 Tablets By Mouth every 3 hours as needed Pain. take with food or milk. Refills: 0. Medications to Continue with No Changes Other Medications glyBURIDE (GlyBURIDE (Eqv-Micronase) 5 mg oral tablet) 1 Tablets By Mouth 2 times a day. PATIENT EDUCATION INFORMATION Instructions: Medication Leaflets: Normal [facility] Patient Education - Texton 1 Patient Education - Text Custom Normal [facility] Coding Summary.on 05-19-2022 Coding Summary. [id number] [file] cHNl (more content not included)... Normal Fish er [facility] COVID-19 ([facility]on 05-14-2022 Performing Instrument FT Perry 2 Normal Fis her [facility] Comment on above: Performed By: #### 2 [id number] #### [facility] Laboratory [address] [place] [address] SARS-CoV-2 (COVID-19) RNA TALIB+probe Ql (Resp) Not detected Normal Not Detected [facility] Comment on above: Result Comment: This test result should be correlated with clinical presentations and medical history by a healthcare provider to determine its clinical significance. This assay was performed by a reverse transcriptase real-time polymerase chain reaction (rt PCR) method on the [employer] system. This test has been authorized only for the detection of nucleic acid from SARS-CoV-2, not for any other viruses or pathogens. This test has not been FDA cleared or approved. This test has been authorized by FDA under an Emergency Use Authorization (EUA). This test is only authorized for the duration of time the declaration on that circumstances exist justifying the authorization emergency use of in vitro diagnostic tests for detection and/or diagnosis of COVID-19 infection under section 564 (b) (1) of the Act, 21 U.S.C. 360 bbb-3 (b) (1), unless authorization is terminated or revoked sooner. Performed By: #### 2 [id number] #### [facility] Laboratory [address] [place] [address] SARS-CoV-2 (COVID-19) RNA NA A+probe Ql (Unsp spec) Pass Normal Pass [facility] Comment on above: Performed By: #### 2 [id number] #### [facility] [address] [place] [address] Specimen source Nom (Unsp spec) Nasal Normal [facility] Comment on above: Performed By: #### 2 [id number] #### [facility] [address] [place] [address] BUNon 05-13-2022 Urea nitrogen [Mass/Vol] 10 mg/dL Normal 5-[address] [facility] Comment on above: Performed By: #### 2 120191, 44055144, 2257935, 9734302, 1962841, 1444005 ####[facility] [address] [place] [address] CBC w/Indiceson 05-13-2022 Erythrocyte distribution wid th (RBC) [Ratio] 13.9 % Normal 10.9-14.2 [facility] Comment on above: Performed By: #### 2 009013, 52793886, 3535784, 1340268, 4351232, 3675358 ####[facility] [address] [place] [address] Hematocrit (Bld) [Volume fraction] 47.7 % Normal 37.7-49.0 [facility] Comment on above: Performed By: #### 2 490792, 52862173, 6146248, 6569278, 2100118, 0904120 ####[facility] [address] [place] [address] Hemoglobin (Bld) [Mass/Vol] 16.5 g/dL Normal 13.5-17. [address] [facility] Comment on above: Performed By: #### 2 573029, 88842818, 9558777, 8432814, 9312014, 6261926 ####[facility] [address] [place] [address] MCH (RBC) [Entitic mass] 29.3 pg Normal 27.0-34.[address] [facility] Comment on above: Performed By: #### 2 451405, 21444742, 6869192, 5955941, 6324468, 0135947 ####[address] [address] MCHC (RBC) [Mass/Vol] 34.5 g/dL Normal 31.4-36.0 [facility] Comment on above: Performed By: #### 2 502881, 68538147, 5675684, 0510816, 0486561, 5210103 ####[address] [address] MCV (RBC) [Entitic vol] 84.9 fL Normal 80.0-100.[address] [facility] Comment on above: Performed By: #### 2 729960, 73051747, 4001696, 0521369, 7356898, 1462208 ####[facility] [address] [place] [address] Platelet mean volume (Bld) [Entitic vol] 8.5 fL Normal 6.4-10.8 [facility] Comment on above: Performed By: #### 2 703079, 57720600, 8802232, 6089325, 5010270, 0150392 ####[address] [address] Platelets (Bld) [#/Vol] 210.0 E9/L Normal 150.0-500.[address] [facility] Comment on above: Performed By: #### 2 497789, 41423156, 6031808, 1231234, 8144487, 9610990 ####[place] [address] [place] [address] RBC (Bld) [#/Vol] 5.6 E12/L Normal 4.3-5.[address] [facility] Comment on above: Performed By: #### 2 307410, 24952239, 6310206, 1839317, 7113339, 5489573 ####[facility] [address] [place] [address] WBC corrected for nucl RBC A uto (Bld) [#/Vol] 9.1 E9/L Normal 4.0-11.0 [facility] Comment on above: Performed By: #### 2 188952, 40624112, 2397368, 6099767, 5884607, 4768999 ####[facility] [address] [place] [address] CHEMISTRYOrdered By: SYSTEM SYSTEM on 05-13-2022 Anion gap [Moles/Vol] 15 mmol/L Normal 6 - 16 mEq/L [facility] Remisol Chloride [Moles/Vol] 102 mmol/L Normal 101 - 111 mmol/ L [facility] Remisol CO2 [Moles/Vol] 22 mmol/L Normal 21 - 31 mmol/L [facility] Remisol Creatinine [Mass/Vol] 1.1 mg/dL Normal 0.5 - 1.3 mg/d L [facility] Remisol GFR/1.73 sq M.predicted jenny g blacks MDRD (S/P/Bld) [Vol rate/Area] mL/min/1.73 m2 Normal >=59mL/min/1.73 m2 [facility] Chem S GFR/1.73 sq M.predicted jenny g non-blacks MDRD (S/P/Bld) [Vol rate/Area] mL/min/1.73 m2 Normal >=59mL/min/1.73 m2 [facility] Chem S Glucose [Mass/Vol] 171 mg/dL Normal 55 - 199 mg/dL [facility] Remisol Potassium [Moles/Vol] 3.7 mmol/L Normal 3.5 - 5.3 mmol /L [facility] Remisol Sodium [Moles/Vol] 135 mmol/L Normal 135 - 145 mmol/L [facility] Remisol Urea nitrogen [Mass/Vol] 10 mg/dL Normal 5 - 21 mg/d L [facility] Remisol Consent for Treatmenton 04-25 Consent for Treatment [id number]:[address] [facility] Consent for Treatment [id number]:[address] [facility] Creatinineon 05-13-2022 Creatinine [Mass/Vol] 1.1 mg/dL Normal 0.5-1.3 [facility] Comment on above: Performed By: #### 2 640079, 38678273, 7360502, 1002751, 2213685, 3975646 ####[facility] [address] [place] [address] Glucoseon 05-13-2022 Glucose [Mass/Vol] 171 mg/dL Normal 55-[address] [facility] Comment on above: Performed By: #### 2 328564, 57731340, 3087832, 0801425, 1483921, 8206673 ####[facility] [address] [place] [address] HEMATOLOGYOrdered By: Scarlett Nicholson on 05-13-2022 Erythrocyte distribution wid th (RBC) [Ratio] 13.9 % Normal 10.9 - 14.2 % [facility]eAutoSS Hematocrit (Bld) [Volume fraction] 47.7 % Normal 37.7 - 49.0 % FT [facility] Hemoglobin (Bld) [Mass/Vol] 16.5 g/dL Normal 13.5 - 1 7.5 gm/dL FT [facility] MCH (RBC) [Entitic mass] 29.3 pg Normal 27.0 - 34.0 pg FT [facility] MCHC (RBC) [Mass/Vol] 34.5 g/dL Normal 31.4 - 36.0 gm /dL FT [facility] MCV (RBC) [Entitic vol] 84.9 fL Normal 80.0 - 100.0 fL FT [facility] Platelet mean volume (Bld) [Entitic vol] 8.5 fL Normal 6.4 - 10.8 fL FT [facility] Platelets (Bld) [#/Vol] 210.0 E9/L Normal 150.0 - 500. 0 E9/L FT [facility] RBC (Bld) [#/Vol] 5.6 E12/L Normal 4.3 - 5.9 E12/L FT [facility] WBC corrected for nucl RBC A uto (Bld) [#/Vol] 9.1 E9/L Normal 4.0 - 11.0 E9/L [facility] HemeAutoSS Lyteson 05-13-2022 Anion gap [Moles/Vol] 15 mmol/L Normal 6-16 [facility] Comment on above: Performed By: #### 2 462286, 00533824, 6086990, 9668387, 9460882, 7727993 ####[facility] [address] [place] [address] Chloride [Moles/Vol] 102 mmol/L Normal 101-111 [facility] Comment on above: Performed By: #### 2 822311, 48735551, 4867898, 8368583, 3699555, 4805381 ####[facility] [address] [place] [address] CO2 [Moles/Vol] 22 mmol/L Normal 21-31 [facility] Comment on above: Performed By: #### 2 264426, 88395694, 6347512, 3054474, 2197607, 3631890 ####[facility] [address] [place] [address] Potassium [Moles/Vol] 3.7 mmol/L Normal 3.5-5.3 [facility] Comment on above: Performed By: #### 2 543810, 03425781, 6758229, 2650595, 8700202, 5814970 ####[facility] [address] [place] [address] Sodium [Moles/Vol] 135 mmol/L Normal 135-[address] [facility] Comment on above: Performed By: #### 2 331304, 87810526, 1454143, 8581426, 8594399, 1502892 ####[facility] [address] [place] [address] XR Chest 2 Viewson 2 XR Chest 2 Views Exam Date/Time: 05/13/2022 13:08 EDT Reason for Exam: PRE OP Report IMPRESSION: The study is within normal limits. CLINICAL HISTORY: PRE OP COMPARISON: FINDINGS: The cardiomediastinal silhouette is unremarkable. The lungs are free of infiltrates effusions or consolidations. The bones and soft tissues are within normal limits. FINAL REPORT Dictated: 05/13/2022 1:10 pm Tomi Evans MD, V. Signed (Electronic Signature): 05/13/2022 1:10 pm Signed by: Tomi Evans MD, V. Transcribed by: JOSE MANUEL Technologist: YAMILKA Normal [facility] eGFRon 05-13-2022 GFR/1.73 sq M.predicted jenny g blacks MDRD (S/P/Bld) [Vol rate/Area] mL/min/{1.73_m2} Normal >=59 [facility] Comment on above: Order Comment: Order added by Discern Expert. Result Comment: eGFR is race adjusted. AA=. Performed By: #### 2 942929, 07845342, 3403068, 6356080, 6453208, 6969446 ####[facility] [address] [place] [address] GFR/1.73 sq M.predicted jenny g non-blacks MDRD (S/P/Bld) [Vol rate/Area] mL/min/{1.73_m2} Normal >=59 [facility] Comment on above: Order Comment: Order added by Discern Expert. Result Comment: [employer] el kidney disease could be indicated at eGFR's of less than 60 mL/min/1.73m2. Kidney failure is indicated at less than 15 mL/min/1.73m2. Performed By: #### 2 388105, 46682980, 2128915, 4016317, 0049954, 7874583 ####[facility] [address] [place] [address] COVID-19 ([facility]on 05-12-2022 ADMITTED TO INTENSIVE CARE U NIT FOR CONDITION OF INTEREST:FIND:PT: Unknown Normal F [facility] Comment on above: Performed By: #### 2 [id number] #### [facility] Laboratory [address] [place] [address] EMPLOYED IN A HEALTHCARE SETTING:FIND:PT: Unknown Normal [facility] Comment on above: Performed By: #### 2 [id number] #### [facility] [address] [place] [address] FIRST TEST FOR CONDITION OF INTEREST:FIND:PT: Unknown Normal [facility] Comment on above: Performed By: #### 2 [id number] #### [facility] [address] [place] [address] HAS SYMPTOMS RELATED TO COND ITION OF INTEREST:FIND:PT: Unknown Normal [facility] Comment on above: Performed By: #### 2 [id number] #### [facility] [address] [place] [address] HOSPITALIZED FOR CONDITION O F INTEREST:FIND:PT: Unknown Normal [facility] Comment on above: Performed By: #### 2 [id number] #### [facility] [address] [place] [address] STATUS:FIND:PT: NO Normal [facility] Comment on above: Performed By: #### 2 [id number] #### [facility] [address] [place] [address] [facility]:FIND:PT: Unknown Normal [facility] Comment on above: Performed By: #### 2 [id number] #### [facility] [address] [place] [address] Pre-Certification Formon Pre-Certification Form [id number]:[address] [facility] Consent for Procedure/Surger yon 05-10-2022 Consent for Procedure/Surgery [id number]:[address] [facility] Outside Recordson 05-04-2022 Outside Records [id number]:[address] [facility] CALCULI, URINARYon 2 2,8 Dihydroxyadenine Normal [facility] Comment on above: Performed By: #### P OCGLUC #### [facility] [address] [place] [address] [address] Yash Mckeon Ammonium Acid Urate Normal [facility] Comment on above: Performed By: #### P OCGLUC #### [facility] [address] [place] [address] [address] Yash Mckeon Bilirubin Ql (U) Normal [facility] Comment on above: Performed By: #### P OCGLUC #### [facility] [address] [place] [address] [address] Yash Mckeon Ca Oxalate Dihydrate [facility] Comment on above: Performed By: #### P OCGLUC #### [facility] [address] [place] [address] [address] Yash Mckeon CaHPO4 (Brushite) [facility] Comment on above: Performed By: #### P OCGLUC #### [facility] [address] [place] [address] [address] Yash Mckeon Calcium Bilirubinate [facility] Comment on above: Performed By: #### P OCGLUC #### [facility] [address] [place] [address] [address] Yash Mkceon Calcium Carbonate Normal [facility] Comment on above: Performed By: #### P OCGLUC #### [facility] [address] [address] [address] Yash Mckeon Calcium Oxalate Monohydrate [facility] Comment on above: Performed By: #### P OCGLUC #### [facility] [address] [address] [address] Yash Mckeon Calcium Palmitate [place] [facility] Comment on above: Performed By: #### P OCGLUC #### [facility] [address] [address] [address] Yash Mckeon Calcium Phosphate Normal [facility] Comment on above: Performed By: #### P OCGLUC #### [facility] [address] [address] [address] Yash Mckeon Calcium Stearate Normal [facility] Comment on above: Performed By: #### P OCGLUC #### [facility] [address] [address] [address] Yash Mckeon Carbonate Apatite Normal [facility] Comment on above: Performed By: #### P OCGLUC #### [facility] [address] [address] [address] Yash Mckeon Cellular Material Normal [facility] Comment on above: Performed By: #### P OCGLUC #### [facility] [address] [address] [address] Yash Mckeon Cholesterol Normal [facility] Comment on above: Performed By: #### P OCGLUC #### [facility] [address] [address] [address] Yash Mckeon Color (U) [place] Normal [facility] Comment on above: Performed By: #### P OCGLUC #### [facility] [address] [address] [address] Yash Mckeon Comment Comment Normal [facility]ital Comment on above: Result Comment: Lolly talline substances normally associated with human calculi were not identified. Specimen is consistent with organic material. Insufficient sample to perform additional, confirmatory, or reference testing. Performed By: #### P OCGLUC #### [facility] [address] [address] [address] Yash Mckeon Comment Normal [facility]ital Comment on above: Performed By: #### P OCGLUC #### [facility] [address] [address] [address] Yash Mckeon Comment: Comment Normal [facility]ital Comment on above: Result Comment: Diego gage questions regarding Calculi Analysis contact [facility] at: [phone]. Performed By: #### P OCGLUC #### [facility] [address] [address] [address] Yash Mckeon Composition Comment Normal [facility] Comment on above: Result Comment: Plea se see comment Performed By: #### P OCGLUC #### [facility] [address] [address] [address] Yash Mckeon Cystine Normal [facility] Comment on above: Performed By: #### P OCGLUC #### [facility] [address] [address] [address] Yash Mckeon Disclaimer: Comment Normal [facility] Comment on above: Result Comment: This test was developed and its performance characteristics determined by [facility]. It has not been cleared or approved by the Food and Drug Administration. Performed By: #### P OCGLUC #### [facility] [address] [address] [address] Yash Mckeon Dried Blood [facility] Comment on above: Performed By: #### P OCGLUC #### [facility] [address] [place] [address] Dr. Yash Mckeon Drug or Metabolite Normal [facility] [place] Comment on above: Performed By: #### P OCGLUC #### [facility] [address] [place] [address] Dr. Yash Mckeon Hydroxyapatite Normal [facility] Comment on above: Performed By: #### P OCGLUC #### [facility] [address] [address] [address] Yash Mckeon Mg NH4 PO4 (Struvite) [facility] Comment on above: Performed By: #### P OCGLUC #### [facility] [address] [place] [address] Dr. Yash Mckeon MgHPO4 (Newberyite) Normal [facility] Comment on above: Performed By: #### P OCGLUC #### [facility] [address] [place] [address] Dr. Yash Mckeon Other component(s) Normal [facility] Comment on above: Performed By: #### P OCGLUC #### [facility] [address] [place] [address] Dr. Yash Mckeon PDF . Normal [facility] Comment on above: Performed By: #### P OCGLUC #### [facility] [address] [place] [address] Dr. Yash Mckeon Photo TNP Normal [facility] Comment on above: Result Comment: Test not performed No photo available Performed By: #### P OCGLUC #### [facility] [address] [place] [address] Dr. Yash Mckeon Please note: Comment Normal [facility] Comment on above: Result Comment: Calc terry report will follow via computer, mail or firer boiler delivery. Performed By: #### P OCGLUC #### [facility] [address] [address] [address] Yash Mckeon Size <1 Normal [facility] Comment on above: Result Comment: Too small to measure. Performed By: #### P OCGLUC #### [facility] [address] [place] [address] Dr. Yash Mckeon Sodium Acid Urate Normal [facility] Comment on above: Performed By: #### P OCGLUC #### [facility] [address] [place] [address] Dr. Yash Mckeon Source Comment Normal [facility] ostal Comment on above: Result Comment: Not provided Performed By: #### P OCGLUC #### [facility] [address] [place] [address] Dr. Yash Mckeon Triamterene [facility] Comment on above: Performed By: #### P OCGLUC #### [facility] [address] [place] [address] Dr. Yash Mckeon Uric Acid Normal [facility] ostal Comment on above: Performed By: #### P OCGLUC #### [facility] [address] [place] [address] Dr. Yash Mckeon Uric Acid Dihydrate Normal [facility] Comment on above: Performed By: #### P OCGLUC #### [facility] [address] [place] [address] Dr. Yash Mckeon Weight <1 Normal [facility] ostal Comment on above: Result Comment: Too small to weigh Performed By: #### P OCGLUC #### [facility] [address] [place] [address] Dr. Yash Mckeon Xanthine Normal [facility] Comment on above: Performed By: #### P OCGLUC #### [facility] [address] [place] [address] Dr. Yash Mckeon Consent for Procedure/Surger yon 04-27-2022 Consent for Procedure/Surgery [id number] [facility] Provider Letter FTon 04-27 Provider Letter [facility]Inserted Image. Un able to display) April 27, 2022 BRIAN TSE [address] [place] [address] BRIAN TSE 1980 To Whom It May Concern, The above named person has a 10 pound weight restriction from 04/27/22-05/19/22. Sincerely, Dr. Nicky Woods MD General Surgery [facility] CBC AUTO DIFFon 04-04-2022 BASO # 0.1 103/ul Normal 0.0-0.1 [facility] Comment on above: Performed By: #### C BC #### [facility] [address] [place] [address] Dr. Yash Mckeon Basophils/100 WBC (Bld) 0.9 % Normal 0.2-2.0 [facility] Comment on above: Performed By: #### C BC #### [facility] [address] [address] [address] Yash Mckeon EO # 0.4 103/ul Normal 0.0-0.7 [facility] Comment on above: Performed By: #### C BC #### [facility] [address] [address] [address] Yash Mckeon Eosinophils/100 WBC (Bld) 3.3 % Normal 0.9-7.0 [facility] Comment on above: Performed By: #### C BC #### [facility] [address] [place] [address] Dr. Yash Mckeon Erythrocyte distribution wid th (RBC) [Ratio] 13.8 % Normal 11.0-15.0 [facility] pital Comment on above: Performed By: #### C BC #### [facility] [address] [place] [address] Dr. Yash Mckeon Hematocrit (Bld) [Volume fraction] 48.7 % Normal 4 2.0-54.0 [facility] Comment on above: Performed By: #### C BC #### [facility] [address] [place] [address] Dr. Yash Mckeon Hemoglobin (Bld) [Mass/Vol] 16.1 g/dL Normal 14.0-18. 0 [facility] Comment on above: Performed By: #### C BC #### [facility] [address] [place] [address] Dr. Yash Mckeon IG # 0.06 10e3/ul Critically high 0.00-0.03 [facility] Comment on above: Performed By: #### C BC #### [facility] [address] [place] [address] Dr. Yash Mckeon IG % 0.5 % Normal 0.0-0.5 [facility] Comment on above: Performed By: #### C BC #### [facility] [address] [place] [address] Dr. Yash Mckeon LYMPH # 4.1 103/ul Critically high 1.2-3.8 [facility] Comment on above: Performed By: #### C BC #### [facility] [address] [place] [address] Dr. Yash Mckeon Lymphocytes/100 WBC (Bld) 33.3 % Normal 20.5-60.0 [facility] Comment on above: Performed By: #### C BC #### [facility] [address] [place] [address] Dr. Yash Mckeon MANUAL DIFF REQ NO Normal [facility] Comment on above: Performed By: #### C BC #### [facility] [address] [place] [address] Dr. Yash Mckeon MCH (RBC) [Entitic mass] 29.0 pg Normal 25.9-34.0 [facility] Comment on above: Performed By: #### C BC #### [facility] [address] [address] [address] Yash Mckeon MCHC (RBC) [Mass/Vol] 33.1 g/dL Normal 29.9-35.2 [facility] Comment on above: Performed By: #### C BC #### [facility] [address] [address] [address] Yash Mckeon MCV (RBC) [Entitic vol] 87.6 fL Normal 80.0-94.0 [facility] Comment on above: Performed By: #### C BC #### [facility] [address] [address] [address] Yash Mckeon MONO # 1.0 103/ul Critically high 0.3-0.8 [facility] Comment on above: Performed By: #### C BC #### [facility] [address] [address] [address] Yash Mckeon Monocytes/100 WBC (Bld) 8.2 % Normal 1.7-12.0 [facility] Comment on above: Performed By: #### C BC #### [facility] [address] [address] [address] Yash Mckeon NEUT # 6.6 103/ul Critically high 1.4-6.5 [facility] Comment on above: Performed By: #### C BC #### [facility] [address] [address] [address] Yash Mckeon Neutrophils/100 WBC (Bld) 53.8 % Normal 43.0-75.0 [facility] Comment on above: Performed By: #### C BC #### [facility] [address] [address] [address] Yash Mckeon Platelet mean volume (Bld) [ Entitic vol] 10.5 fL Normal 9.5-13.5 [facility] Comment on above: Performed By: #### C BC #### [facility] [address] [address] [address] Yash Mckeon PLT 260 103/ul Normal 150-450 [facility] Comment on above: Performed By: #### C BC #### [facility] [address] [place], [place] [address] Dr. Yash Mckeon RBC 5.56 106/ul Normal 4.70-6.10 [facility] Comment on above: Performed By: #### C BC #### [facility] [address] [place], [place] [address] Dr. Yash Mckeon WBC 12.2 103/ul Critically high 4.0-11.0 [facility] Comment on above: Performed By: #### C BC #### [facility] [address] [place], [place] [address] ABD/PELVIS WO CONon 04-04 CT ABD/PELVIS WO CON EXAMINATION: CT ABD /PELVIS WO CON HISTORY: CALCULUS OF KIDNEY ; acute right flank pain and hematuria COMPARISON: CT abdomen pelvis 05/14/2020 TECHNIQUE: Axial, Coronal, and Sagittal images were created without IV contrast. Dose reduction techniques were achieved by using automated exposure control and/or adjustment of mA and/or kV according to patient size and/or use of iterative reconstruction technique. FINDINGS: LUNG BASES: No visible pulmonary or pleural disease. LIVER: No enlargement, atrophy, suspicious density, or significant focal lesion. BILIARY: Cholecystectomy. PANCREAS: No lesion, fluid collection, or abnormal duct dilatation. SPLEEN: No enlargement or focal lesion. ADRENALS: No mass or enlargement. KIDNEYS: Minimal right hydronephrosis and right ureter secondary to a partially obstructing 2 mm stone at the ureterovesical junction. BOWEL/MESENTERY: No visible mass, obstruction, or bowel wall thickening. Normal appendix. AORTA/VASCULAR: No aneurysm or dissection. RETROPERITONEUM: No mass or adenopathy. LYMPH NODES: No adenopathy. URINARY BLADDER: No visible focal wall thickening, lesion, or calculus. PELVIC ORGANS: No visible mass. Pelvic organs appropriate for patient age. ABDOMINAL WALL: Left inguinal hernia extending to the scrotum containing fluid and fat; no bowel involvement. BONES: No bony lesion or fracture. OTHER: Negative. IMPRESSION: 1. Nonobstructing to partially obstructing 2 mm stone within the distal right ureter at the ureterovesical junction; possibly having just moved into the urinary bladder. 2. Fat filled left inguinal hernia extending to the scrotum. Fluid within the distal portion is likely secondary to its dependent location relative to the pelvis; no convincing strangulation of the fat and subsequent edema. Correlate for pain in this area. Electronically authenticated by: JUANITA DYKES Date: 2022-04-04 08:43 Normal The [facility] l CULTURE URINEon 04-04-2022 CULTURE URINE Culture Observations : LIGHT GROWTH OF MIXED SKIN BRIANNA. NO POTENTIAL PATHOGENS SEEN. Normal [facility] Comment on above: Performed By: #### P OCGLUC #### [facility] [address] [place] [address] Dr. Yash Mckeon ER URINE PROFILEon 2 Bilirubin Ql (U) Negative Normal NEGATIVE [facility] Comment on above: Performed By: #### Vincenzo KELLEY UMICRO #### [facility] [address] [place] [address] Dr. Yash Mckeon Clarity (U) SL CLOUDY Abnormal CLEAR [facility] Comment on above: Performed By: #### LYN STEPHENSICRO #### [facility] [address] [place] [address] Dr. Yash Mckeon Color (U) BROWN Abnormal YELLOW [facility] Comment on above: Performed By: #### SUNIL STEPHENSRO #### [facility] [address] [place] [address] Dr. Yash Mckeon ERUAHD A micrscopic examina tion will be performed if indicated. Normal [facility] Comment on above: Performed By: #### LYN STEPHENSICRO #### [facility] [address] [place] [address] Dr. Yash Mckeon Glucose Ql (U) 100 mg/dl Abnormal NEGATIVE [facility] Comment on above: Performed By: #### LYN STEPHENSICRO #### [facility] [address] [place] [address] Dr. Yash Mckeon Hemoglobin Ql (U) LARGE Abnormal NEGATIVE [facility] Comment on above: Performed By: #### SUNIL STEPHENSRO #### [facility] [address] [place] [address] Dr. Yash Mckeon Ketones Ql (U) TRACE Abnormal NEGATIVE [facility] Comment on above: Performed By: #### KALEIGH STEPHENS #### [facility] [address] [place] [address] Dr. Yash Mckeon LEUKOCYTES Negative Normal NEGATIVE [facility] Comment on above: Performed By: #### KALEIGH STEPHENS #### [facility] [address] [place] [address] Dr. Yash Mckeon Nitrite Ql (U) Positive Abnormal NEGATIVE [facility] Comment on above: Performed By: #### KALEIGH STEPHENS #### [facility] [address] [place] [address] Dr. Yash Mckeon pH (U) 5.0 [pH] Normal 5-9 [facility] Comment on above: Performed By: #### KALEIGH STEPHENS #### [facility] [address] [place] [address] Dr. Yash Mckeon Protein (U) [Mass/Vol] 100 mg/dL Abnormal NEGATIVE/ TRA CE [facility] Comment on above: Performed By: #### KALEIGH STEPHENS #### [facility] [address] [place] [address] Dr. Yash Mckeon SPEC GRAVITY >=1.030 Abnormal 1.005-<=1.025 [facility] Comment on above: Performed By: #### KALEIGH STEPHENS #### [facility] [address] [place] [address] Dr. Yash Mckeon UR MICRO IND INDICATED Normal [facility] Comment on above: Performed By: #### KALEIGH STEPHENS #### [facility] [address] [place] [address] Dr. Yash Mckeon Urobilinogen Qn (U) 1.0 {Nathaniel'U}/dL Normal 0.2 - 1. 0 [facility] Comment on above: Performed By: #### KALEIGH STEPHENS #### [facility] [address] [place] [address] Dr. Yash Mckeon PROF CHEM 8 (BAS METB)on Anion gap [Moles/Vol] 16.0 mmol/L Normal [facility] Comment on above: Performed By: #### B MP #### [facility] [address] [place] [address] Dr. Yash Mckeon Calcium [Mass/Vol] 8.5 mg/dL Normal 8.5-10.1 [facility] [place] Comment on above: Performed By: #### B MP #### [facility] [address] [place] [address] Dr. Yash Mckeon Chloride [Moles/Vol] 102 mmol/L Normal 98-107 [facility] Comment on above: Performed By: #### B MP #### [facility] [address] [place] [address] Dr. Yash Mckeon CO2 [Moles/Vol] 23.6 mmol/L Normal 21.0-32.0 [facility] Comment on above: Performed By: #### B MP #### [facility] [address] [place] [address] Dr. Yash Mckeon Creatinine [Mass/Vol] 1.17 mg/dL Normal 0.70-1.30 [facility] Comment on above: Performed By: #### B MP #### [facility] [address] [place] [address] Dr. Yash Mckeon EGFR-AF KOSOVAN >60 Normal >=60 [facility] Comment on above: Performed By: #### B MP #### [facility] [address] [place] [address] Dr. Yash Mckeon EGFR-NON AF KOSOVAN >60 Normal >=60 [facility] Comment on above: Performed By: #### B MP #### [facility] [address] [place] [address] Dr. Yash Mckeon Glucose [Mass/Vol] 234 mg/dL Critically high 74-106 [facility] Comment on above: Performed By: #### B MP #### [facility] [address] [place] [address] Dr. Yash Mckeon Potassium [Moles/Vol] 3.6 mmol/L Normal 3.5-5.1 [facility] Comment on above: Performed By: #### B MP #### [facility] [address] [place] [address] Dr. Yash Mckeon Sodium [Moles/Vol] 138 mmol/L Normal 136-145 [facility] [place] Comment on above: Performed By: #### B MP #### [facility] [address] [place] [address] Dr. Yash Mckeon Urea nitrogen [Mass/Vol] 8.0 mg/dL Normal 7.0-18.0 [facility] Comment on above: Performed By: #### B MP #### [facility] [address] [place] [address] Dr. Yash Mckeon Urea nitrogen/Creatinine [Mass ratio] 6.8 mg/mg Normal [facility] Comment on above: Performed By: #### B MP #### [facility] [address] [place] [address] Dr. Yash Mckeon URINE MICROSCOPIC ONLYon BACTERIA TRACE Abnormal NONE SEEN [facility] Comment on above: Performed By: #### Vincenzo KELLEY UMICRO #### [facility] [address] [place] [address] Dr. Yash Mckeon Bacteria identified Cx Nom (U) INDICATED Normal [facility] Comment on above: Performed By: #### Vincenzo KELLEY UMICRO #### [facility] [address] [place] [address] Dr. Yash Mckeon CAST NONE SEEN Normal NONE SEEN [facility] Comment on above: Performed By: #### E RUR UMICRO #### [facility] [address] [place] [address] Dr. Yash Mckeon Crystals LM Nom (Urine sed) NONE SEEN Normal NONE SEE N [facility] Comment on above: Performed By: #### E RUR, UMICRO #### [facility] [address] [place] [address] Dr. Yash Mckeon Epithelial cells LM Ql (Urine sed) RARE Normal N ONE SEEN /RARE [facility] Comment on above: Performed By: #### Vincenzo KELLEY UMICRO #### [facility] [address] [place] [address] Dr. Yash Mckeon MUCOUS NONE SEEN Normal NONE SEEN [facility] Comment on above: Performed By: #### E SUNIL KELLEYRO #### [facility] [address] [place] [address] Dr. Yash Mckeon RBC 20-50 Abnormal 0-2 [facility] Comment on above: Performed By: #### E SUNIL KELLEYRO #### [facility] [address] [place] [address] Dr. Yash Mckeon WBC 0-2 Abnormal NONE SEEN [facility] Comment on above: Performed By: #### E SUNIL KELLEYRO #### [facility] [address] [place] [address] Dr. Yash Mckeon CBC AUTO DIFFon 02-17-2022 BASO # 0.1 103/ul Normal 0.0-0.1 [facility] Comment on above: Performed By: #### C BC #### [facility] [address] [place] [address] Dr. Yash Mckeon Basophils/100 WBC (Bld) 0.7 % Normal 0.2-2.0 [facility] Comment on above: Performed By: #### C BC #### [facility] [address] [place] [address] Dr. Yash Mckeon EO # 0.2 103/ul Normal 0.0-0.7 [facility] Comment on above: Performed By: #### C BC #### [facility] [address] [place] [address] Dr. Yash Mckeon Eosinophils/100 WBC (Bld) 1.6 % Normal 0.9-7.0 [facility] Comment on above: Performed By: #### C BC #### [facility] [address] [place] [address] Dr. Yash Mckeon Erythrocyte distribution wid th (RBC) [Ratio] 14.3 % Normal 11.0-15.0 [facility] pital Comment on above: Performed By: #### C BC #### [facility] [address] [place] [address] Dr. Yash Mckeon Hematocrit (Bld) [Volume fraction] 47.1 % Normal 4 2.0-54.0 [facility] Comment on above: Performed By: #### C BC #### [facility] [address] [place] [address] Dr. Yash Mckeon Hemoglobin (Bld) [Mass/Vol] 15.7 g/dL Normal 14.0-18. 0 [facility] Comment on above: Performed By: #### C BC #### [facility] [address] [place] [address] Dr. Yash Mckeon IG # 0.05 10e3/ul Critically high 0.00-0.03 [facility] Comment on above: Performed By: #### C BC #### [facility] [address] [place] [address] Dr. Yash Mckeon IG % 0.5 % Normal 0.0-0.5 [facility] Comment on above: Performed By: #### C BC #### [facility] [address] [place] [address] Dr. Yash Mckeon LYMPH # 2.9 103/ul Normal 1.2-3.8 [facility] Comment on above: Performed By: #### C BC #### [facility] [address] [place] [address] Dr. Yash Mckeon Lymphocytes/100 WBC (Bld) 29.8 % Normal 20.5-60.0 [facility] Comment on above: Performed By: #### C BC #### [facility] [address] [place] [address] Dr. Yash Mckeon MANUAL DIFF REQ NO Normal [facility] Comment on above: Performed By: #### C BC #### [facility] [address] [place] [address] Dr. Yash Mckeon MCH (RBC) [Entitic mass] 29.2 pg Normal 25.9-34.0 [facility] Comment on above: Performed By: #### C BC #### [facility] [address] [address] [address] Yash Mckeon MCHC (RBC) [Mass/Vol] 33.3 g/dL Normal 29.9-35.2 [facility] Comment on above: Performed By: #### C BC #### [facility] [address] [place] [address] Dr. Yash Mckeon MCV (RBC) [Entitic vol] 87.7 fL Normal 80.0-94.0 [facility] Comment on above: Performed By: #### C BC #### [facility] [address] [place] [address] Dr. Yash Mckeon MONO # 0.7 103/ul Normal 0.3-0.8 [facility] Comment on above: Performed By: #### C BC #### [facility] [address] [place] [address] Dr. Ysah Mckeon Monocytes/100 WBC (Bld) 6.8 % Normal 1.7-12.0 [facility] Comment on above: Performed By: #### C BC #### [facility] [address] [place] [address] Dr. Yash Mckeon NEUT # 5.9 103/ul Normal 1.4-6.5 [facility] Comment on above: Performed By: #### C BC #### [facility] [address] [place] [address] Dr. Yash Mckeon Neutrophils/100 WBC (Bld) 60.6 % Normal 43.0-75.0 [facility] Comment on above: Performed By: #### C BC #### [facility] [address] [place] [address] Dr. Yash Mckeno Platelet mean volume (Bld) [ Entitic vol] 10.3 fL Normal 9.5-13.5 [facility] Comment on above: Performed By: #### C BC #### [facility] [address] [place] [address] Dr. Yash Mckeon PLT 240 103/ul Normal 150-450 [facility] Comment on above: Performed By: #### C BC #### [facility] [address] [address] [address] Yash Mckeon RBC 5.37 106/ul Normal 4.70-6.10 [facility] Comment on above: Performed By: #### C BC #### [facility] [address] [place] [address] Dr. Yash Mckeon WBC 9.8 103/ul Normal 4.0-11.0 [facility] Comment on above: Performed By: #### C BC #### [facility] [address] [place] [address] Dr. Yash Mckeon Covid-19 PCR ([facility])on 01-23 SARS-CoV-2 (COVID-19) RNA TALIB+probe Ql (Unsp spec) Not detected Normal NOT DETECTED The [facility] Comment on above: Result Comment: When diagnostic testing is negative, the possibility of a false negative should be considered in the context of a patient's recent exposures and the presence of clinical signs and symptoms consistent with SARS-CoV-2. This test is not yet approved or cleared by the [place] FDA. When there are no FDA-approved or cleared tests available, and other criteria are met, FDA can make tests available under an emergency access mechanism called an Emergency Use Authorization (EUA). The EUA for this test is supported by the [place] of Health and Human Service's declaration that circumstances exist to justify the emergency use of in vitro diagnostics for the detection and/or diagnosis of the virus that causes COVID-19. This EUA will remain in effect for the duration of the COVID-19 declaration justifying emergency of IVDs, unless it is terminated or revoked by the FDA (after which the test may no longer be used). Performed By: #### C VDTBH #### [facility] [address] [place] [address] Dr. Yash Mckeon D-DIMERon 02-17-2022 D-DIMER <0.19 Normal <=0.59 [facility] Comment on above: Performed By: #### D DIM #### [facility] [address] [place] [address] Dr. Yash Mckeon D-DIMER COMMENTS SEE BELOW Normal [facility] Comment on above: Result Comment: Incr eases in D-Dimer concentration observed with thromboembolic events can be variable due to localization, size, and age of the thrombus. Therefore, a thromboembolic event cannot be diagnosed with certainty on the basis of the reference range. D-Dimers may also be elevated for a variety of disorders including: advanced age, , coronary disease, cancer, liver disease, infection, inflammation, hematoma, DIC, trauma, post-surgery, diabetes, thrombolytic or anticoagulant therapy, stress, and generalized hospitalization. Performed By: #### D DIM #### [facility] [address] [place] [address] Dr. Yash Mckeon PROF CHEM 8 (BAS METB)on Anion gap [Moles/Vol] 13.0 mmol/L Normal [facility] Comment on above: Performed By: #### P OCGLUC #### [facility] [address] [place] [address] Dr. Yash Mckeon Calcium [Mass/Vol] 9.2 mg/dL Normal 8.5-10.1 [facility] Comment on above: Performed By: #### P OCGLUC #### [facility] [address] [place] [address] Dr. Yash Mckeon Chloride [Moles/Vol] 102 mmol/L Normal 98-107 [facility] Comment on above: Performed By: #### P OCGLUC #### [facility] [address] [place] [address] Dr. Yash Mckeon CO2 [Moles/Vol] 28.2 mmol/L Normal 21.0-32.0 [facility] Comment on above: Performed By: #### P OCGLUC #### [facility] [address] [place] [address] Dr. Yash Mckeon Creatinine [Mass/Vol] 1.10 mg/dL Normal 0.70-1.30 [facility] Comment on above: Performed By: #### P OCGLUC #### [facility] [address] [place] [address] Dr. Yash Mckeon EGFR-AF KOSOVAN >60 Normal >=60 [facility] Comment on above: Performed By: #### P OCGLUC #### [facility] [address] [address] [address] Yash Mckeon EGFR-NON AF KOSOVAN >60 Normal >=60 [facility] Comment on above: Performed By: #### P OCGLUC #### [facility] [address] [address] [address] Yash Mckeon Glucose [Mass/Vol] 174 mg/dL Critically high 74-106 [facility] Comment on above: Performed By: #### P OCGLUC #### [facility] [address] [address] [address] Yash Mckeon Potassium [Moles/Vol] 4.2 mmol/L Normal 3.5-5.1 [facility] Comment on above: Performed By: #### P OCGLUC #### [facility] [address] [address] [address] Yash Mckeon Sodium [Moles/Vol] 139 mmol/L Normal 136-145 [facility] Comment on above: Performed By: #### P OCGLUC #### [facility] [address] [address] [address] Yash Mckeon Urea nitrogen [Mass/Vol] 12.0 mg/dL Normal 7.0-18.0 [facility] Comment on above: Performed By: #### P OCGLUC #### [facility] [address] [address] [address] Yash Mckeon Urea nitrogen/Creatinine [Mass ratio] 10.9 mg/mg Normal [facility] Comment on above: Performed By: #### P OCGLUC #### [facility] [address] [address] [address] Yash Mckeon TROPONIN, HIGH SENSITIVITYon 02-17-2022 HSTROP <4.0 Normal 4.0-76.1 [facility] Comment on above: Result Comment: CUT- OFF POINTS HAVE BEEN ESTABLISHED BASED ON THE FOURTH UNIVERSAL DEFINITIONS OF MYOCARDIAL INFARCTION. THE UPPER REFERENCE LIMIT (URL) OF TROPONIN, DEFINED THE 99TH PERCENTILE OF cTnI DISTRIBUTION IN A REFERENCE POPULATION, HAS BEEN CONFIRMED THE DECISION THRESHOLD FOR RI DIAGNOSIS. Performed By: #### P OCGLUC #### [facility] [address] [address] [address] Yash Mckeon XR RIBS RT PA Brisa 2 XR RIBS RT PA CH EXAMINATION: XR RIBS RT PA CH HISTORY: Pain ; right upper chest, shoulder, and back pain COMPARISON: No relevant comparison available. FINDINGS: LUNGS: No significant pulmonary parenchymal abnormalities. PLEURA: No pneumothorax, effusion, or pleural thickening. MEDIASTINUM: No visible mass or adenopathy. CARDIAC: No cardiomegaly or cardiac silhouette abnormality. RIBS: Normal. No significant arthropathy or acute abnormality. OTHER: Negative. IMPRESSION: 1. No acute cardiac pulmonary process. 2. No appreciable rib abnormality or bone findings to account for patient's symptoms. Electronically authenticated by: JUANITA DYKES Date: 2022-02-17 15:26 Normal The [facility] BASIC METABOLIC PANELon - Anion gap [Moles/Vol] 17 mmol/L Normal 10 - 20 [facility] Comment on above: Performed By: #### B MP #### [address] [address] Calcium [Mass/Vol] 8.7 mg/dL Normal 8.6 - 10.3 [facility] Comment on above: Performed By: #### B MP #### [address] [address] Chloride [Moles/Vol] 103 mmol/L Normal 98 - 107 [facility] Comment on above: Performed By: #### B MP #### [address] [address] Creatinine [Mass/Vol] 0.88 mg/dL Normal 0.50 - 1.30 [facility] Comment on above: Performed By: #### B MP #### [address] [address] GFR- AM. >60 Normal >60 [facility] Comment on above: Result Comment: CALC ULATIONS OF ESTIMATED GFR ARE PERFORMED USING THE MDRD STUDY EQUATION FOR THE IDMS-TRACEABLE CREATININE METHODS. CLIN CHEM 2007;53:766-72 Performed By: #### B MP #### [facility] [address] [place] [address] GFR-NON AM. >60 Normal >60 [facility] Comment on above: Performed By: #### B MP #### [facility] [address] [place] [address] Glucose [Mass/Vol] 252 mg/dL High 74 - 99 [facility] Comment on above: Performed By: #### B MP #### [address] [place] [address] HCO3 (Bld) [Moles/Vol] 19 mmol/L Low 21 - 32 [facility] Comment on above: Performed By: #### B MP #### [address] [place] [address] Potassium [Moles/Vol] 4.1 mmol/L Normal 3.5 - 5.3 [facility] Comment on above: Performed By: #### B MP #### [address] [place] [address] Sodium [Moles/Vol] 135 mmol/L Low 136 - 145 [facility] Comment on above: Performed By: #### B MP #### [address] [place] [address] Urea nitrogen [Mass/Vol] 13 mg/dL Normal 6 - 23 [facility] Comment on above: Performed By: #### B MP #### [address] [place] [address] GLUCOSE-POCTon 09-05-2020 Glucose [Mass/Vol] 276 mg/dL High 74 - 99 [facility] Comment on above: Performed By: #### G LATA #### [address] [place] [address] History and Physical - Surgi kellie Update < 30 dayson 09-05-2020 History and Physical - Surgical Update < 30 days History & Physical Reviewed: I have reviewed the History and Physical dated: 28-Aug-2020 History and Physical reviewed and relevant findings noted. Patient examined to review pertinent physical findings.: No significant changes Home Medications Reviewed: no changes noted Allergies Reviewed: no changes noted ERAS (Enhanced Recovery After Surgery): ERAS Patient: no Consent: COVID-19 Consent: COVID-19 Risk ConsentSurgeon has reviewed isaac risks related to the risk of snehal COVID-19 and if they contract COVID-19 what the risks are. Signatures/Attestation: Note Completion: Attending Provider Inpatient Certification StatementObservation patient/other outpatient visits Electronic Signatures: Nicky Swartz) (Signed 05-Sep-2020 11:26) Authored: History & Physical Reviewed, ERAS, Consent, Note Completion Last Updated: 05-Sep-2020 11:26 by Nicky Swartz) [facility] - [facility] PREOPERATIVE INDICATION: Phimosis. PREOPERATIVE DIAGNOSIS: Phimosis. POSTOPERATIVE DIAGNOSIS: Phimosis. PROCEDURE: Circumcision. ANESTHESIA: General. FINDINGS: 1. Severely scarred foreskin, unable to retract at the end of the case. 2. Once we were able to perform a mild dorsal slit in order to retract the foreskin, there was significant purulent material that was evacuated from within the phimotic band. 3. Leave the circumcision performed without incident or complication. ESTIMATED BLOOD LOSS: 20 mL. OPERATIVE NOTE: This is a 39-year-old male with phimosis, refractory to topical creams. He has had multiple episodes of balanitis. He desired a circumcision. All risks and alternatives were discussed with the patient and he elected to proceed. After informed consent was obtained, patient was brought back to the operating room, placed under general anesthesia. He was positioned in the supine position with all pressure points padded per protocol. He was prepped and draped in normal sterile fashion. A preoperative pause performed and preoperative antibiotics were confirmed to be given. We began by attempting to retract his foreskin, but he had dense amount of fraying that prevented this. We used scissors to perform a mild dorsal slit and we were then able to retract the foreskin. There was significant amount of purulent material that was drained from within the phimotic band. We then marked the penile skin approximately 1.5 cm below the coronal margin as well as the preputial skin at the coronal ridge. We used a 15 blade scalpel to incise down to the dartos and then performed a sleeve circumcision in the standard fashion. We then reapproximated the skin using 3-0 and 4-0 chromic sutures in interrupted fashion. There was excellent hemostasis and excellent cosmetic result. We used a dorsal nerve block as well as a penile block for pain control. The bladder was catheterized with 200 mL of urine drained. We applied bacitracin, Vaseline gauze, Amelie, and Coban to the penis. The patient was awoken from general anesthesia and transferred to PACU in stable condition. PLAN: He will follow up in 1 month for postop visit. We extensively discussed postop instructions to the patient. SPECIMEN: Foreskin. NICKY SWARTZ MD EST EST DICTATION NUMBER: [id number] INTERNAL JOB NUMBER: [id number] Electronic Signatures: Nicky Swartz) (Signed on 15-Sep-2020 07:34) Authored Unsigned, Draft (SYS GENERATED) (Entered on 06-Sep-2020 07:26) Entered Last Updated: 15-Sep-2020 07:34 by Nicky Swartz) [facility] Order Reconciliationon 09-05 Order Reconciliation Page 1 Discharge Reconciliation Document Reconciliation Type: Discharge requested on behalf of Radha Madrigal (Physician) done by Radha Madrigal ( (Fellow)) Discharge - Reconciliation: 05-Sep-2020 12:55 by: Radha Madrigal ( (Fellow)) Home Medications EnteredHOME MEDICATIONS AT DISCHARGE DateReconciliation Comment/ Additional Information Januvia 100 mg oral tablet 1 tab(s) orally once a day 28-Aug-2020 13:22 Januvia 100 mg oral tablet 1 tab(s) orally once a day 28-Aug-2020 13:22 Januvia 100 mg oral tablet is continued as Januvia 100 mg oral tablet Trulicity Pen 3 mg/0.5 mL subcutaneous solution weekly but has not started this yet 28-Aug-2020 13:23 Trulicity Pen 3 mg/0.5 mL subcutaneous solution weekly but has not started this yet 28-Aug-2020 13:23 Trulicity Pen 3 mg/0.5 mL subcutaneous solution is continued as Trulicity Pen 3 mg/0.5 mL subcutaneous solution Home Medications Added During Discharge Reconciliation Activity as Tolerated 05-Sep-2020, Routine, Assistance Level: None, Restrictions: None Activity as Tolerated 05-Sep-2020, Routine, Assistance Level: None, Restrictions: None, Limit your activities and rest today. Additional Patient Instructions Do not consume alcoholic beverages for 24 hours. Additional Patient Instructions Do not engage in sports, heavy work or lifting. Additional Patient Instructions Do not make important decisions or sign any important documents for the next 24 hours. Additional Patient Instructions Do not smoke for 24 hours. Additional Patient Instructions It is recommended that a responsible adult remain with you for the next 24 hours as you may be light headed/dizzy. Additional Patient Instructions Keep Surgical incision dry and clean. Additional Patient Instructions Remove Dressing by tomorrow Additional Patient Instructions The dressing should be removed by tomorrow at noon Call Physician For: excessive bleeding (slow general oozing that completely soaks dressing or fresh bright red bleeding) or bleeding that will not stop. Apply pressure to the area and elevate. Call Physician For: if the arm or leg operated on has a change in color, numbness or tingling coldness to the touch or excessive pain. Call Physician For: inability to urinate every 8-12 hours and your bladder becomes too full or painful. Call Physician For: persistant nausea and/or vomiting Over 24 hours Call Physician For: signs and sypmtoms of infection Increased redness or swelling at incision site, increased pain/tenderness at surgical site, increased temperature greater than 100 degress, increasing and/or progressive drainage from surgical site, and/or unusual odor from surgical site. Colace 100 mg oral capsule 1 cap(s) orally 2 times a day Diet Regular Discharge Discharge Diagnosis< N47.1 Phimosis Discharge Provider, Nicky Swartz Discharge Disposition : .Home Condition at Discharge: Satisfactory Discharge Instructions - PHR After your discharge from the hospital, two Summary of Care Documents will be available online in your Personal Health Record (PHR). 1.Consolidated-Clinical Document Architecture (C-CDA) Patient Discharge Summary This document is a summary of your hospital stay to be kept for your reference.2.C-CDA Visit Summary This document is a summary of your hospital stay to be shared with your follow-up providers (doctor, proof plate maker, physical therapist, etc.). Follow Up with in [address] or operate motor vehicles for 24 hours. May shower After dressing removal oxyCODONE 5 mg oral tablet 1 tab(s) orally every 6 hours, As Needed x2 days as needed for pain.Dx:G89.18.PRN All Active Home Medications at time of Discharge Reconciliation: 05-Sep-2020 12:55 Activity as Tolerated 05-Sep-2020, Routine, Assistance Level: None, Restrictions: None Activity as Tolerated 05-Sep-2020, Routine, Assistance Level: None, Restrictions: None, Limit your activities and rest today. Additional Patient Instructions Do not consume alcoholic beverages for 24 hours. Additional Patient Instructions Do not engage in sports, heavy work or lifting. Additional Patient Instructions Do not make important decisions or sign any important documents for the next 24 hours. Additional Patient Instructions Do not smoke for 24 hours. Additional Patient Instructions It is recommended that a responsible adult remain with you for the next 24 hours as you may be light headed/dizzy. Additional Patient Instructions Keep Surgical incision dry and clean. Additional Patient Instructions Remove Dressing by tomorrow Additional Patient Instructions The dressing should be removed by tomorrow at noon Call Physician For: excessive bleeding (slow general oozing that completely soaks dressing or fresh bright red bleeding) or bleeding that will not stop. Apply pressure to the area and elevate. Call Physician For: if the arm or leg operated on has a change in color, numbness or tingling coldness to the touch or excessive pain. Call Physician For: inability to urinate every 8-12 hours and your bladder becomes too full or painful. Call Physician For: persistant nausea and/or vomiting Over 24 hours Call Physician For: signs and sypmtoms of infection Increased redness or swelling at incision site, increased pain/tenderness at surgical site, increased temperature greater than 100 degress, increasing and/or progressive drainage from surgical site, and/or unusual odor from surgical site. Colace 100 mg oral capsule 1 cap(s) orally 2 times a day Diet Regular Discharge Discharge Diagnosis< N47.1 Phimosis Discharge Provider, Nicky Swartz Discharge Disposition : .Home Condition at Discharge: Satisfactory Discharge Instructions - PHR After your discharge from the hospital, two Summary of Care Documents will be available online in your Personal Health Record (PHR). 1.Consolidated-Clinical Document Architecture (C-CDA) Patient Discharge Summary This document is a summary of your hospital stay to be kept for your reference.2.C-CDA Visit Summary This document is a summary of your hospital stay to be shared with your follow-up providers (doctor, proof plate maker, physical therapist, etc.). Follow Up with in 2 Weeks Januvia 100 mg oral tablet 1 tab(s) orally once a day May not drive or operate motor vehicles for 24 hours. May shower After dressing removal oxyCODONE 5 mg oral tablet 1 tab(s) orally every 6 hours, As Needed x2 days as needed for pain.Dx:G89.18.PRN Trulicity Pen 3 mg/0.5 mL subcutaneous solution weekly but has not started this yet Normal [facility] Histologyon 09-05-2020 [facility] Name BRIAN TSE Pathologist: CHRIS MACEDO MD Date of Procedure: 09/05/2020 Date Received: 09/05/2020 Date Reported 09/09/2020 Submitting Physician: NICKY SWARTZ MD Location: Other External # FINAL DIAGNOSIS A. FORESKIN: -- SKIN WITH PARAKERATOSIS AND CHRONIC INFLAMMATION Electronically Signed Out By CHRIS MACEDO MD/NKK By the signature on this report, the individual or group listed as making the Final Interpretation/Diagnosis certifies that they have reviewed this case. Clinical History: Phimosis Specimens Submitted As: A: FORESKIN Gross Description: Received in formalin, labeled with the patient?s name and hospital number and foreskin , are 2 irregular fragments of wrinkled brown skin measuring 4.5 x 2.5 x 1 cm and 2.5 x 0.5 x 0.5 cm respectively. Application Support Lead sections are submitted in 1 cassette. TNB tnb/09/05/2020 [facility] Department of Pathology [address] [place] [address] Normal [facility] Comment on above: Performed By: #### P #### [facility] [address] [facility] [address] Preop Checkliston 09-05-2020 Preop Checklist Preop Checklist: Preop Checklist: Arrival [id number] Arrival Time09:42 Procedure TypeCIRCUMCISION Temperature C36.2 degrees C Temperature F97.1 degrees F Heart Rate70 beats per minute Respiratory Rate18 breath per minute Blood Pressure Yjcqfjse183 mm/Hg Blood Pressure Isqnfvbic90 mm/Hg ID Band Onyes Allergy Bandno known allergies Consent Signedyes H&P Completeyes Anesthesia Assessment Completedpending EKG Performedsee results tab SCD's Appliedsent to OR Denturesnot applicable Prostheticsnot applicable Hearing Aidsnot applicable Valuables Securedsent with family RING Glasses / Contactsnot applicable Cardiovascular Assessment: Extremitieswarm Respiratory Assessment: Respirationsunlabored Air Exchangeequal Breath Soundsclear Neurological Assessment: Level of Consciousnessalert, oriented Mobilitymoves all extremities Able to Express Selfyes Age Appropriateyes Emotional Statuscalm Preop Education: Surgical Site Infection Preventionyes Pain Scales and Managementyes Language / Communication: Language / CommunicationEnglish Electronic Signatures: Zainab Laguna) (Signed 05-Sep-2020 09:48) Authored: Preop Checklist Last Updated: 05-Sep-2020 09:48 by Zainab Laguna (SUKHJINDER) Normal [facility] URINE CULTURE,BACTERIALon URINE CULTURE,BACTERIAL PATIENT: BRIAN TSE LOCATION: [facility]#: [id number] : 82 AGE: SEX: M ORDERED BY: NICKY SWARTZ SOURCE: URINE COLLECTED: 09/05/20 08:16 ANTIBIOTICS AT REINA.: RECEIVED : 09/05/20 11:32 SITE: R E S U L T S URINE CULTURE,BACTERIAL FINAL 09/06/20 07:51 NO SIGNIFICANT GROWTH. Normal [facility] Comment on above: Performed By: #### U RINC #### [facility] [address] [place] [address] CORONAVIRUS 2019, SCREEN ASY MPTOMATICon 09-03-2020 CORONAVIRUS 2019,PCR NOT DETECTED Normal Not Detected [facility] Comment on above: Result Comment: . This assay is designed to detect the N, ORF1ab and/or S genes of SARS-CoV-2 via nucleic acid amplification. A Negative (NOT DETECTED) result does not preclude 2019-nCoV infection since the adequacy of sample collection and/or low viral burden may result in presence of viral nucleic acids below the clinical sensitivity of this test method. Negative (NOT DETECTED) result should not be used as the sole basis for treatment or other patient management decisions. Rather negative results should be combined with clinical observations, patient history, and epidemiological information to make patient management decisions. Fact sheet for providers: https://www.fda.gov/media/337082/download Fact sheet for patients: https://www.fda.gov/media/021909/download This test has received FDA Emergency Use Authorization (EUA) and has been verified by [facility] ([facility]). This test is only authorized for the duration of time that circumstances exist to justify the authorization of the emergency use of in vitro diagnostic tests for the detection of SARS-CoV-2 virus and/or diagnosis of COVID-19 infection under section 564(b)(1) of the Act, 21 U.S.C. 360bbb-3(b)(1), unless the authorization is terminated or revoked sooner. [facility] is certified under CLIA-88 as qualified to perform high complexity testing. Testing is performed in the [facility] laboratories located at [address] [place] [address]. Performed By: #### C OVSC #### [place] [address] Lab Specimen Source Nasal, Nasopharyngeal Normal [facility] Comment on above: Performed By: #### C OVSC #### [place] [address] Covid 19 Resultson 1 Covid 19 Results NEGATIVE COVID-[address] Coronaviruses are common world-wide and are the cause of many common colds. SARS-COV2 is a new coronavirus that began circulating worldwide in 2019 so we are calling it COVID-19. It has been estimated that four out of five patients with COVID-19 will recover at home without the need for medical attention. Symptoms of COVID-19 include cough, fever, shortness of breath, loss of taste or smell and other flu-like symptoms including chills, sore muscles, sore throat, and headache. Severe illness is more common in older people and people with other health problems such as high blood pressure, obesity, and immune system problems. If the test is positive, you have COVID-19. You will be contacted by the ordering physicians office and instructed to remain on home isolation, in accordance with CDC guidelines. You may also be contacted by the [facility] to see if any of your close contacts may have been exposed to the virus and need to quarantine. If the test is negative, you likely do not have COVID-19 at this time, but you still may have a different illness that can spread to other people (like Influenza, or the Flu) and could still be at risk for getting COVID-19. We recommend that you stay away from other people to limit the spread of illness until your symptoms are improving and you are fever-free for 24 hours without the use of fever lowering medications such as acetaminophen or ibuprofen. No test is 100% accurate so if you are still concerned you may have COVID-19, talk to your doctor about the need to continue to stay away from others. Medicines Acetaminophen (Tylenol and others) is generally safe. Anti-inflammatory medications, such as Ibuprofen (Advil or Motrin) or Naproxen (Aleve) can also be used. Llch-roj-nbmemge cough and cold medicines can be used according to the instructions on the package. Some hvih-bei-ksioohj medicines also contain acetaminophen. Make sure you are not taking more than your recommended dose For those not hospitalized, there is no specific treatment available for this illness. Antibiotics do not treat Coronaviruses. Follow-Up Follow up with your doctor by scheduling a virtual visit or consider follow-up at one of our urgent care fever clinics. If you are having difficulty breathing, or are very weak and having difficulty standing, this is a medical emergency. Call 911 or have someone take you to the nearest emergency room immediately. If possible, wear a facemask. Additional guidance from the CDC for patients who tested POSITIVE for COVID-19 How to isolate: Isolate yourself in a specific room at home and limit your contact with others. Use a separate bathroom from other members of the household, when possible. Leave home only to get essential medical care. Do not go to work, school or public areas. Avoid using public transportation, ride-sharing, or taxis. Restrict contact with pets and other animals. If you must care for your pet or be around animals while you are sick, wash your hands before and after your interaction and wear a facemask. Make sure that shared spaces in the home have good airflow, such as by an air conditioner or an opened window, weather permitting. Personal Hygiene Procedures: Wear a face mask when in the same room as other people or pets. If a face mask interferes with your breathing, others should wear a mask when sharing space with you. Frequent hand-washing: wash your hands with soap and water for at least 20 seconds. If soap and water are not available, use alcohol-based hand heritage consultant. Avoid touching your eyes, nose, and mouth with unwashed hands. Household Hygiene Procedures: Avoid sharing personal household items such as dishes, glassware, cups, eating utensils, towels or bedding with other people or pets in your home. After use, these items should be washed with soap and hot water. Disinfect all high-touch surfaces every day with antibacterial cleaning solutions such as Lysol wipes, bleach, cleansers, etc. High-touch surfaces include tabletops, doorknobs, bathroom fixtures, toilets, phones, keyboards, tablets and bedside tables. Immediately clean any surfaces that may have blood, poop or body fluids on them, using antibacterial cleaning solutions such as Lysol wipes, bleach, cleansers, etc. If clothing or bedding come into contact with blood, poop or body fluids, they should be washed immediately. Follow the directions on the laundry detergent and clothing labels but hot water is recommended when possible. Stopping home isolation precautions: If possible, consult your doctor before stopping home isolation precautions. According to the CDC, you can discontinue home isolation precautions when you have met both of these criteria: Your fever and respiratory symptoms have been gone for 24 hours without the use of any medicines like ibuprofen (Motrin) and acetaminophen (Tylenol). It has been at least 10 days since your symptoms first appeared. If you are immunosuppressed OR you were admitted to the hospital for this, you should wait until it has been 14 days since your symptoms first appeared. Guidelines for Those Living With and/or Caring For Persons with COVID-19: Read and follow all the recommendations outlined in this handout. Do not permit visitors in the home unless there is an essential need. Wear a facemask when in the same room as the patient. Wear a facemask and gloves (disposable if available) when you touch or have contact with the patient's blood, poop, or body fluids including saliva, phlegm, nasal mucus, vomit or urine. Clean or throw away facemasks and gloves after use and wash your hands with soap and water. You will need to quarantine (stay away from others) for 14 days after your last contact with your family member with COVID-19. The person with COVID-19 is considered contagious 48 hours prior to symptoms beginning (or starting with the day of the positive test if they have no symptoms) for a total of 10 days. Additional resources: [facility] COVID Hotline at 8-085-5YHJTFN ( ). COVID-19 Careline at (available 24 hours per day, seven days a week if you or a loved one is experiencing anxiety related to the coronavirus pandemic). Clinical research opportunities: is conducting research studies to develop better testing and treatments for COVID. Do you want any information on how to participate Call [phone]. Websites: hospitals.org or www.CDC.gov Follow My Health / My [facility] (for other test results): Revised 06/10/2020 Electronic Signatures: CARLOS RajanMSriveraices (ADMIN) (Signature pending) Authored Last Updated: 03-Sep-2020 21:24 by CARLOS RajanMSgarry (ADMIN) Normal [facility] [place] CNOVon 10-14-2017 CNOV Office Visit (LOORRM) --------BRIAN TSE ([id number]) 1980 MDate Time Provider Department10/14/17 11:00 AM NAHOMY ANDRADE) LOORRM During your visit today, we recorded the following information about you:Nahomy Andrade PA-C 10/14/2017 3:20 PM SignedPAST MEDICAL HISTORY: No past medical history on file.PAST SURGICAL HISTORY: No past surgical history on file.FAMILY HISTORY : No family history on file.SOCIAL HISTORY: Social History Marital status: Single Spouse name: Years of education: Number of children:Social History Main TopicsSexual Activity: Not on fileMEDICATIONS:No current outpatient prescriptions on file prior to visit.No current facility-administered medications on file prior to visit.ALLERGIES:ALLERGIESAllergen Reactions- Chantix [Vareniclin* Other: See Comments Very bad dreamsROS :REVIEW OF SYSTEMS:Constitutional: patient denies any recent fever or significant change in weightCardiovascular: patient denies any chest pain at restRespiratory: patient denies any shortness of breath or coughGastrointestinal: patient denies any current abdominal discomfort and patientnotes history to tolerance of NSAIDsIntegumentary: patient denies any recent skin changesMusculoskeletal: as noted in the HPINeurologic: patient denies any peripheral numbness or radiation of painEndocrine: patient is a well controlled diabeticHematologic/Lymphatic: patient denies any easily bleeding, any recent infectionand denies any recent observable lymph node enlargementPsychologic: negative for any recent depression or anxiety issuesSOCIAL HISTORY:Tobacco Use: Not on fileFAMILY HISTORY:No family history on file.Referring Provider: SELF [[id number]]Allergies As of Date: 10/14/2017 Noted Allergy ReactionCHANTIX (VARENICLINE) 10/14/2017 14 - Other: See Comments Comments: Very bad dreamsDate Reviewed: 10/14/2017Reviewed by: Nahomy Andrade (Pa) - Fully AssessedReason for Visit: right arm pain [Other]Primary Visit Diagnosis:Arthritis of right acromioclavicular joint [M19.011] Other Visit Diagnoses:Strain of right rotator cuff capsule, initial encounter [S46.011A] Right shoulder tendonitis [M75.81]Order(s):etodolac (LODINE) 400 mg tabletTake 1 tablet by mouth twice daily. with foodDisp: 60 tabletRfl: 1 CONSULT TO PHYSICAL THERAPY [9000] Order #: [id number]: 1Prescriptions as of 10/14/2017 Sig: ATORVASTATIN 10 MG TABLET Take 10 mg by mouth once yecenia* METFORMIN 500 MG TABLET Take 500 mg by mouth daily wi* ETODOLAC 400 MG TABLET Take 1 tablet by mouth twice *Problem List As Of Date 10/14/2017 Noted Resolved Right shoulder tendonitis [M75.81] INVALID FOR* Strain of right rotator cuff capsule [S46.011A] INVALID FOR* Arthritis of right acromioclavicular joint [M19*INVALID FOR*Prescriptions ordered this encounter Disp Refills Start End ETODOLAC 400 MG TABLET 60 t* 1 10/14/2017 Route: ORAL Sig: Take 1 tablet by mouth twice daily. with foodMedications Discontinued During This Encounter CHANTIX STARTING MONTH BOX 0.5 mg (1* 09/20/2017 10/14/2017 Class: Historical Med Sig: Disc: Erroneous entryEncounter Number: [id number] Status:Closed by NAHOMY ANDRADE PA-C on 10/14/17 [facility] PROGRESSon 10-14-2017 PROGRESS HNO ID: [id number] thor: Nahomy (Mazin) LilaService: (none)Author Type: Physician AssistantType: Progress NotesFiled: 10/14/2017 3:20 PMNote Text:PAST MEDICAL HISTORY: No past medical history on file.PAST SURGICAL HISTORY: No past surgical history on file.FAMILY HISTORY : No family history on file.SOCIAL HISTORY: Social History Marital status: Single Spouse name: Years of education: Number of children:Social History Main TopicsSexual Activity: Not on fileMEDICATIONS:No current outpatient prescriptions on file prior to visit.No current facility-administered medications on file prior to visit.ALLERGIES:ALLERGIESAllergen Reactions- Chantix [Vareniclin* Other: See Comments Very bad dreamsROS :REVIEW OF SYSTEMS:Constitutional: patient denies any recent fever or significant change inweightCardiovascular: patient denies any chest pain at restRespiratory: patient denies any shortness of breath or coughGastrointestinal: patient denies any current abdominal discomfort andpatient notes history to tolerance of NSAIDsIntegumentary: patient denies any recent skin changesMusculoskeletal: as noted in the HPINeurologic: patient denies any peripheral numbness or radiation of painEndocrine: patient is a well controlled diabeticHematologic/Lymphatic: patient denies any easily bleeding, any recentinfection and denies any recent observable lymph node enlargementPsychologic: negative for any recent depression or anxiety issuesSOCIAL HISTORY:Tobacco Use: Not on fileFAMILY HISTORY:No family history on file. Normal [facility] PROGRESS HNO ID: [id number] thor: Nahomy Andrade (Pa)Service: Orthopaedic SurgeryAuthor Type: Physician AssistantType: Progress NotesFiled: 10/20/2017 3:42 PMNote Text: [facility] [address] [place], [place] [address] CLINIC NOTE Department of Orthopaedics - CYNTHIA KeitaCNAME: BRIAN TSE NO.: [id number] OF SERVICE: 10/14/2017CHIEF COMPLAINT: Right shoulder pain.HISTORY OF PRESENT ILLNESS: The patient reports that he has had rightshoulder pain since a fall where he slipped coming down steps whiletaking out the garbage about a month ago. He came down hard on his rightelbow jamming his shoulder. Has had intermittent pain and burring andoccasional throbbing since. Has taken ibuprofen once or twice a daywithout substantial improvement. Had been given Tylenol No. 3 on initialevaluation and uses it primarily to sleep at night. Pain level is betweena 0 and a 7 depending on his activities. Uses ice on occasion, which doeshelp some temporarily. [facility] followed by an MRI. He is here todayfor further evaluation and discussion of treatment. He is zjed-wimbnel-vtbjqecli diabetic who was under poor control several yearsago; however, his blood sugars are under excellent control presentlyafter significant weight loss and diet control. Denies any other injuryto either shoulder. His symptoms are primarily at the superior aspect ofthe shoulder and lateral arm. Denies any anterior or posterior soreness.Has pain primarily with reaching overhead or reaching out away from himand also lifting anything heavy. 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 No tenderness along thecervical spine and scapular muscles. Has no SC joint tenderness. Hassignificant tenderness at the AC joint. No anterior or posterior capsulartenderness. He does have tenderness subacromially at the lateral aspectof the shoulder. Motor and sensory are intact in the upper extremitiesbilaterally. He has good range of motion with only minor limitations offlexion and internal rotation, though has a painful arc of flexion,abduction, and internal rotation mid range. Has pain with flexion andcross-body impingement. Has good strength with resistance to range ofmotion in all planes, but has pain with resisted flexion and externalrotation particularly.X-RAYS: X-rays brought with the patient today on disk from 09/13/2017done at [facility] were personally interpreted andreviewed with the patient today. They show some AC joint arthritis. Goodacromiohumeral distance. No significant glenohumeral arthritis. Noevidence of fracture. No other osseous abnormalities.MRI: MRI dated 10/01/2017 from [facility] shows a mildrotator cuff tendinosis, but no full or significant partial-thicknesstear. Inflammation at the acromioclavicular joint. The ligaments areintact.IMPRESSION:1. Acromioclavicular joint arthritis and rotator cuff tendinosis. 2.Strain to the rotator cuff of the right shoulder.PLAN: We discussed treatment options. Suggest that we use an oral NSAIDto try and quiet down the inflammation and then get him enrolled in aprogram of physical therapy. Also suggest Aspercreme with lidocainetopically. Prescription was given for physical therapy, which [facility] [place] [facility] Discussed possibly a cortisone injection at that time ifnecessary. Declines today as he does not like needles.Dictated By: Pepe Zurita Dictated: 10/19/2017Date Typed: anshul 10/19/2017SHANKAR# [id number] Normal [facility] SR-MRI Shoulder w/o Contrast Right IMPORTon 10-01-2017 SR-MRI Shoulder w/o Contrast Right IMPORT Images were obtained outside of [facility] [id number] Normal [facility] SR-XR Shoulder Complete Righ t IMPORTon 09-13-2017 SR-XR Shoulder Complete Right IMPORT Images were obtained outside of [facility] [id number] Normal [facility] Vital Signs Date Time Vital Sign Value Performing Clinician Facility 01-06-2023 10:25-0400 Body height 177.8 cm Georgia Del Cid Other [facility] Other 01-06-2023 10:25-0400 Body mass index (BMI) [Ratio] 31.1 kg/m2 Georgia Del Cid Other [facility] Other 01-06-2023 10:25-0400 Body temperature 98.7 [degF] Georgia Del Cid Other [facility] Other 01-06-2023 10:25-0400 Body weight 98.34 kg Georgia Del Cid Other [facility] Other 01-06-2023 10:25-0400 Diastolic blood pressure 88 mm[Hg] Georgia Del Cid Other [facility] Other 01-06-2023 10:25-0400 Respiratory rate 18 /min Georgia Del Cid Other [facility] Other 01-06-2023 10:25-0400 SaO2% (BldA) [Mass fraction] 98 % Georgia Del Cid Other [facility] Other 01-06-2023 10:25-0400 Systolic blood pressure 136 mm[Hg] Georgia Del Cid Other [facility] Other 05-20-2022 16:12-0400 Blood Pressure Location Nicky WOODS [facility] 05-20-2022 16:12-0400 Body temperature 98.06 [degF] Nicky NILL [facility] 05-20-2022 16:12-0400 Diastolic blood pressure 74 mm[Hg] Nicky NILL [facility] 05-20-2022 16:12-0400 Heart rate 79 /min Nicky NILL [facility] 05-20-2022 16:12-0400 Mean blood pressure 85 mm[Hg] Nicky NILL [facility] 05-20-2022 16:12-0400 Respiratory rate 16 /min Nicky NILL [facility] 05-20-2022 16:12-0400 SaO2% (BldA) [Mass fraction] 96 % Nicky NILL [facility] 05-20-2022 16:12-0400 Systolic blood pressure 106 mm[Hg] Nicky NILL [facility] 05-20-2022 14:41-0400 Blood Pressure Location Nicky NILL [facility] 05-20-2022 14:41-0400 Body temperature 98.06 [degF] Nicky NILL [facility] 05-20-2022 14:41-0400 Diastolic blood pressure 83 mm[Hg] Nicky NILL [facility] 05-20-2022 14:41-0400 Heart rate 70 /min Nicky NILL [facility] 05-20-2022 14:41-0400 Respiratory rate 16 /min Nicky NILL [facility] 05-20-2022 14:41-0400 SaO2% (BldA) [Mass fraction] 99 % Nicky NILL [facility] 05-20-2022 14:41-0400 Systolic blood pressure 135 mm[Hg] Nicky NILL [facility] 05-20-2022 14:38-0400 Body temperature 97.52 [degF] Nicky NILL [facility] 05-20-2022 14:38-0400 Diastolic blood pressure 85 mm[Hg] Nicky NILL [facility] 05-20-2022 14:38-0400 Heart rate 67 /min Nicky NILL [facility] 05-20-2022 14:38-0400 Respiratory rate 14 /min Nicky NILL [facility] 05-20-2022 14:38-0400 SaO2% (BldA) [Mass fraction] 100 % Nicky NILL [facility] 05-20-2022 14:38-0400 Systolic blood pressure 122 mm[Hg] Nicky NILL [facility] 05-20-2022 14:25-0400 Respiratory rate 11 /min Nicky NILL [facility] 05-20-2022 14:15-0400 Respiratory rate 15 /min Nicky NILL [facility] 05-20-2022 13:41-0400 Blood Pressure Location Nicky NILL [facility] 05-20-2022 13:41-0400 Body temperature 97.52 [degF] Nicky NILL [facility] 05-20-2022 13:35-0400 Respiratory rate 14 /min Nicky NILL [facility] 05-20-2022 10:00-0400 Body temperature 98.06 [degF] Nicky NILL [facility] 05-20-2022 10:00-0400 Mean blood pressure 103 mm[Hg] Nicky NILL [facility] 05-20-2022 10:00-0400 Heart rate 66 /min Nicky NILL [facility] 05-13-2022 12:32-0400 Blood Pressure Location Nicky NILL [facility] 05-13-2022 12:32-0400 BP/Pulse Patient Position Nicky NILL [facility] 05-13-2022 12:32-0400 Diastolic blood pressure 86 mm[Hg] Nicky NILL [facility] 05-13-2022 12:32-0400 Heart rate 67 /min Nicky NILL [facility] 05-13-2022 12:32-0400 Mean blood pressure 102 mm[Hg] Nicky NILL [facility] 05-13-2022 12:32-0400 Respiratory rate 18 /min Nicky NILL [facility] 05-13-2022 12:32-0400 Systolic blood pressure 134 mm[Hg] Nicky NILL [facility] 05-13-2022 12:30-0400 Blood Pressure Location Nicky NILL [facility] 05-13-2022 12:30-0400 BP/Pulse Patient Position Nicky NILL [facility] 05-13-2022 12:30-0400 Diastolic blood pressure 83 mm[Hg] Nicky NILL [facility] 05-13-2022 12:30-0400 Heart rate 69 /min Nicky NILL [facility] 05-13-2022 12:30-0400 Mean blood pressure 102 mm[Hg] Nicky NILL [facility] 05-13-2022 12:30-0400 SaO2% (BldA) [Mass fraction] 97 % Nicky NILL [facility] 05-13-2022 12:30-0400 Systolic blood pressure 140 mm[Hg] Nicky NILL [facility] 05-13-2022 12:30-0400 Body temperature 97.7 [degF] Nicky NILL [facility] 04-27-2022 09:05-0400 Blood Pressure Location Nicky NILL [facility] [place] 04-27-2022 09:05-0400 Diastolic blood pressure 95 mm[Hg] Nicky NILL [facility] [place] 04-27-2022 09:05-0400 Heart rate 58 /min Nicky NILL [facility] [place] 04-27-2022 09:05-0400 Respiratory rate 16 /min Nicky NILL [facility] [place] 04-27-2022 09:05-0400 Systolic blood pressure 141 mm[Hg] Nicky PATELL [facility] [place] 04-23-2022 11:11-0400 Blood Pressure Location Patrick ALFONSO [facility] 04-23-2022 11:11-0400 Diastolic blood pressure 87 mm[Hg] Patrick ALFONSO [facility] 04-23-2022 11:11-0400 Heart rate 75 /min Patrick ALFONSO [facility] 04-23-2022 11:11-0400 Respiratory rate 16 /min Patrick ALFONSO [facility] 04-23-2022 11:11-0400 Systolic blood pressure 130 mm[Hg] Patrick ALFONSO [facility] Encounters Encounter Date Encounter Type Care Provider Facility Start: 04-18-2023 End: 04-19-2023 ambulatory Patrick ALFONSO Facility:[facility] Start: 04-18-2023 End: 04-18-2023 Patient encounter procedure Ptarick ALFONSO [facility] Start: 01-06-2023 End: 01-06-2023 ambulatory Georgia Del Cid Other [facility] Other Start: 01-06-2023 Office outpatient visit 15 minutes Georgia Del Cid [facility] Start: 11-30-2022 End: 11-30-2022 ambulatory Imad Asaad Facility:[facility] Start: 11-04-2022 End: 11-04-2022 ambulatory Imad Asaad Other [facility] Other Start: 11-04-2022 Telephone encounter Imad Asaad [facility] Start: 10-28-2022 End: 10-29-[address] PATRICK ALFONSO . Facility:[facility] Start: 10-26-[address] PATRICK ALFONSO . Fac ility:[facility] Start: 10-22-2022 End: 10-23-[address] PATRICK ALFONSO . Facility:[facility] Start: 10-22-2022 End: 10-23-2022 ambulatory Patrick ALFONSO Facility:[facility] Start: 10-21-2022 End: 10-21-2022 ambulatory Domonique Myers Facility:[facility] Start: 10-21-2022 End: 10-21-2022 ambulatory DO Jude Clementsers III Work Phone: [facility] Work Phone: Start: 10-21-2022 End: 10-21-2022 Patient encounter procedure DO Jude Ruvalcaba III Work Phone: [facility] Work Phone: Start: 06-25-2022 End: 06-26-2022 ambulatory Nicky R NILL Facility: [place] Start: 06-25-2022 End: 06-25-2022 Patient encounter procedure Nicky R NILL General Surgery Nill/[facility] [place] Start: 06-22-2022 ambulatory Nicky R NILL Facility : [place] Start: 06-02-2022 End: 06-03-2022 ambulatory Nicky R NILL Facility: [place] Start: 06-02-2022 End: 06-02-2022 Patient encounter procedure Nicky R NILL General Surgery Nill/Said [place] Start: 05-20-2022 End: 05-20-2022 ambulatory Nicky R NILL [place] Start: 05-20-2022 End: 05-20-2022 Admission to same day surgery center Nicky R NILL [facility] Start: 05-13-2022 End: 05-14-2022 ambulatory Nicky R NILL [place] Start: 05-13-2022 End: 05-13-2022 Patient encounter procedure Nicky R NILL [facility] Start: 04-27-2022 End: 04-28-2022 ambulatory Nicky R NILL Facility: [place] Start: 04-27-2022 End: 04-27-2022 Patient encounter procedure Nicky R NILL [facility] General Surgery [place] Start: 04-23-2022 End: 04-23-[address] PATRICK ALFONSO . Facility:[facility] Start: 04-23-2022 End: 04-23-2022 Patient encounter procedure Patrick ALFONSO [facility] [place] Start: 04-04-2022 End: 04-04-2022 ambulatory SALBADOR HERNANDEZ Facility:[facility] Start: 02-17-2022 End: 02-17-2022 ambulatory UMM SILVERMAN . Facility:[facility] Start: 10-14-2017 End: 10-17-2017 Ambulatory NAHOMY ORNELAS) [facility] Jose Manuel [facility] Procedures Date Procedure Procedure Detail Performing Clinician Start: 10-21-2022 Plain chest X-ray DO Yasmine Ruvalcaba III Work Phone: Start: 05-20-2022 Laparoscopy surg rpr initial inguinal hernia Nicky WOODS Start: 11-03-2020 Follow-up visit Start: 08-28-2020 Follow-up visit Start: 02-27-2015 Harris bunionectomy, right Patrick ALFONSO Start: 01-02-2015 Harris bunionectomy, left foot Patrick ALFONSO Start: 10-23-2012 Hemorrhoidectomy Willi ALFONSO Cholecystectomy Patrick BANUELOS Circumcision Patrick ALFONSO Colonoscopy Patrick ALFONSO Colonoscopy Patrick ALFONSO Laparoscopic cholecystectomy Patrick ALFONSO Lateral sphincterotomy Amy ALFONSO removal of ingrown toenail 1 Patrick ALFONSO Comment on above: left great toe removal of ingrown toenail 1 Nicky WOODS Comment on above: left great toe Tooth extraction Patrick DELGADILLO Payers Date Payer Category Payer Self-pay [id number] 1980 Unknown [id number] 2.16.84 [id number] 1981 Unknown [id number] 2.16.84 0.1.147049.3.579.2.593 1981 Unknown [id number] 2.16.84 0.1.084242.3.579.2.593 1981 Unknown [id number] 2.16.84 0.1.703701.3.579.2.593 1981 Unknown [id number] 2.16.84 0.1.420866.3.579.2.593 1981 Unknown [id number] 2.16.84 0.1.022411.3.579.2.593 1981 Unknown [id number] 2.16.84 0.1.949504.3.579.2.593 1981 Unknown [id number] 2.16.8 40.1.155974.3.579.2.727 1981 Unknown [id number] 2.16.8 40.1.250671.3.579.2.727 1981 Unknown [id number] 2.16.8 40.1.144198.3.579.2.727 1981 Unknown [id number] 2.16.8 40.1.013658.3.579.2.727 1981 Unknown [id number] 2.16.8 40.1.463760.3.579.2.727 1981 Unknown [id number] 2.16.8 40.1.306832.3.579.2.727 1981 Unknown [id number] 2.16.8 40.1.477813.3.579.2.727 1981 Unknown [id number] 2.16.8 40.1.435981.3.579.2.727 1981 Unknown [id number] 2.16.8 40.1.764748.3.579.2.727 1958 Medicaid [id number] 1958 Medicaid [id number] 2. [id number] Unknown [id number] 2.16.8 40.1.007915.3.579.2.531 Unknown [id number] 2.16.8 40.1.336899.3.579.2.531 Social History Date Type Detail Facility Start: 01-31-2020 End: 04-23-2022 Tobacco smoking status Smoker (finding) [facility] Sex Assigned At Male [facility] Start: 04-27-2022 Tobacco smoking status Heavy t obacco smoker (finding) [facility] Comment on above: Smoker Tobacco smoking status Never [facility] Comment on above: Smoker Start: 1980 Sex Assigned At Male F [facility] Medical Equipment Procedure Code Equipment Code Equipment Origin al Text Equipment Identifier Dates INGUINAL HERNIA REPAIR ADULT SANFORD CORONEL, Nicky Guidry 05/20/22 Non Biological Abdomen {[id number] [facility] Start: 05-20-2022 Functional Status Date Assessment Result Facility 05-13-2022 Functional Status No [facility] 04-27-2022 Functional Status N/A [facility] [place] 04-23-2022 Functional Status N/A [facility] Clinical Notes 04-23-2022 to 01-06-2023 Note Date & Type Note Facility 01-06-2023 Evaluation note Encounter Date Diagnosis Assessment Notes Dec, Acute gingivitis (ICD-10 - K05.00) Discussed with patient concern for gingivitis, bacterial infection of oral mucosa. Will treat with Augmentin. Finish entire course. May wish to do probiotic supplement. Patient reports history of frequent penile yeast infections with antibiotic use. Discussed will send dose of Diflucan, use only if develops symptoms. We will also Rx Chlorohexadine mouthwash. Discussed needs to schedule appointment with a dentist in the next couple weeks, may need deep cleaning of gums. Follow-up with PCP if not gradually improving over the next 7 to 10 days or significantly worsening. Patient verbalized understanding of treatment plan. [employer] Other 04-13-2023 Hospital Discharge instructions Follow Up Care 11/04/2022 10:27:15 With:BRAYDEN CORONEL, NEAL ArandaL Address: [facility] [address] , [place] [address]- [phone] When: Unknown [facility] 2022 Hospital Discharge instructions Patient Education 05/20/2022 14:32:40 Post Op Patient Instructions - FT (CUSTOM) Follow Up Care 04/27/2022 09:44:58 With:Nicky WOODS Address: [address] [place] [address], [facility] [address] [address] Business (1) When:7 to 10 days [facility]2022 NotePatient: BRIAN TSE Age: 41 years Sex: Male : 1980 Associated Diagnoses: None Author: Nicky WOODS MD Subjective no changes to & [facility]:Result Comment: Electronically Signed By: Nicky WOODS MD\.br\Date and Time Signed: 05/20/22 11:55 [id number]:[address] [facility]10-05-2022 NoteChief Complaint consultation for [facility] HPI Staff 41 year old male presents on consultation from Dr. Alfonso for left inguinal hernia. Presented to [place] ED 04/[address] with [address]. CT completed at that time with fat containing left inguinal hernia. Reports for the last one week, he has been experiencing moderate LLQ and scrotal pain. Feels left scrotum is swollen. Reports he has daily nausea and vomiting for the past week, primarily with too much activity. No urinary complaints. States he is having difficulty moving bowels although stool is soft. History of Present Illness 41 yo male with h/o DMII, h/o nephrolithiasis, referred for left inguinal hernia; patient in [place] ED 04/04/22 for abd pain, found to have partially obstructing right kidney stone and fat-containing left inguinal hernia; over past week reports soreness left groin into scrotum with lifting; feels slight bulge, no skin changes, some nausea with pain, occasional emesis; now on light duty; abdominal operations significant for LS cholecystectomy; denies asa or NSAID use; smokes daily. Review of Systems PHQ Score Initial Depression Screen Score: 0 ROS - Provider Constitutional: no fever, no sweats, no weight loss. Eyes: no glasses, no blurred vision, no visual loss. ENMT: no dentures, no hoarseness, no swallowing difficulties, no hearing loss, no ear infection(s),no nose bleeds. Cardiovascular: normal blood pressure, no chest pain, regular heartbeat, no heart murmur. Respiratory: no shortness of breath, no cough, no asthma, no wheezing. Gastrointestinal: yes nausea, yes vomiting, no diarrhea, no constipation, no blood in stool, no change in bowel habits, yes abdominal pain, no hepatitis. Genitourinary: no kidney stones, no urine infection, no dysuria. Musculoskeletal: yes pain, no weakness. Skin: no changing moles, no rash, no skin lumps. Neurologic: no seizures, no epilepsy, no headache. Psychiatric: no emotional or psychiatric problem. Heme/Lymph: no bleeding problems, no anemia, no blood clots, no transfusions. Allergy/Immunologic: no swollen lymph nodes/glands, no IV drug abuse. Other: Additional ROS info: Except as noted in the above Review of Systems and in the History of Present Illness, all other systems have been reviewed and are negative or noncontributory. Physical Exam Vitals & Measurements HR: 58(Peripheral) RR: 16 BP: 141/95 HT: 71 in HT: 180 cm WT: 101.8 kg WT: 223.96 lb BMI: 31.42 HEENT: normal conjunctiva, sclera clear, no scleral icterus, EOM intact, PERRLA, oral mucosa moist without lesions. Neck: trachea midline, no mass, symmetric, no thyromegaly or nodules, no adenopathy Respiratory: lungs CTA, respirations non labored. Cardiovascular: regular rate and rhythm, no murmur, no pedal edema or varicosities. Gastrointestinal: obese, soft, non distended, mild tenderness, left inguinal area no masses, reducible left inguinal, no skin changes, no hydrocele, diastasis recti no, no hepatosplenomegaly; normal bs Lymphatic: no cervical adenopathy, , no inguinal adenopathy. Musculoskeletal: normal gait, digits and nails without infection, nodes, cyanosis, clubbing. Skin: no rashes, no lesions, no ulcers, no subcutaneous nodules, induration. Psychiatric/Neuro: oriented to time, place, person, judgement normal, affect appropriate for age, insight intact, no focal deficits. Tests: labs reviewed, x-rays reviewed, review of old records completed, Discussed surgical options, risks, and possible complications with patient. Assessment/Plan 1. Reducible left inguinal hernia (K40.90: Unilateral inguinal hernia, without obstruction or gangrene, not specified as recurrent) plan left inguinal herniorrhaphy with mesh insertion, informed consent obtained. signs/symptoms of incarceration/strangulation of hernia explained in detail, and patient understands that he should seek prompt medical evaluation if they were to occur. Patient instructed to decrease, or ideally quit,tobacco use in the perioperative period to minimize lung and wound complications, as well as risk of recurrent hernia. Ancef 2 gms IV prior to OR TAP block per anesthesia informed consent obtained 2. Tobacco use (Z72.0: Tobacco use) We strongly recommend to quit tobacco use. Cigarette smoking harms nearly every organ of the body, causes many diseases, and reduces the health of smokers in general. Quitting smoking lowers your risk for smoking-related diseases and can add years to your life. We encourage you to visit www.smokefree.gov access to helpful resources including free telephone support. If you decide on prescription treatment to help you quit, your family doctor would be happy to provide these. Follow-up No qualifying data available Problem List/Past Medical History Ongoing BMI 31.0-31.9,adult Candidal balano-posthitis Crohn disease Elevated blood pressure reading Elevated liver enzymes Fever Headache Inguinal hernia Major depressive disorder, sing (more content not included)...[facility]Result Comment: Electronically Signed By: SANFORD CORONEL, Nicky Baker\Date and Time Signed: 04/28/22 06:07 [id number] Hospital Discharge instructions Patient Education 04/23/2022 12:05:06 Kidney Stones, [id number] Kidney Stones Kidney stones are rock-like masses that form inside of the kidneys. Kidneys are organs that make pee (urine). A kidney stone may move into other parts of the urinary tract, including: The tubes that connect the kidneys to the bladder (ureters). The bladder. The tube that carries urine out of the body (urethra). Kidney stones can cause very bad pain and can block the flow of pee. The stone usually leaves your body (passes) through your pee. You may need to have a doctor take out the stone. What are the causes? Kidney stones may be caused by: A condition in which certain glands make too much parathyroid hormone (primary hyperparathyroidism). A buildup of a type of crystals in the bladder made of a chemical called uric acid. The body makes uric acid when you eat certain foods. Narrowing (stricture) of one or both of the ureters. A kidney blockage that you were born with. Past surgery on the kidney or the ureters, such as gastric bypass surgery. What increases the risk? You are more likely to develop this condition if: You have had a kidney stone in the past. You have a family history of kidney stones. You do not drink enough water. You eat a diet that is high in protein, salt (sodium), or sugar. You are overweight or very overweight (obese). What are the signs or symptoms? Symptoms of a kidney stone may include: Pain in the side of the belly, right below the ribs (flank pain). Pain usually spreads (radiates) to the groin. Needing to pee often or right away (urgently). Pain when going pee (urinating). Blood in your pee (hematuria). Feeling like you may vomit (nauseous). Vomiting. Fever and chills. How is this treated? Treatment depends on the size, location, and makeup of the kidney stones. The stones will often pass out of the body through peeing. You may need to: Drink more fluid to help pass the stone. In some cases, you may be given fluids through an IV tube put into one of your veins at the hospital. Take medicine for pain. Make changes in your diet to help keep kidney stones from coming back. Sometimes, medical procedures are needed to remove a kidney stone. This may involve: A procedure to break up kidney stones using a beam of light (laser) or shock waves. Surgery to remove the kidney stones. Follow these instructions at home: Medicines Take wbpu-yda-ipyvhqc and prescription medicines only as told by your doctor. Ask your doctor if the medicine prescribed to you requires you to avoid driving or using heavy machinery. Eating and drinking Drink enough fluid to keep your pee pale yellow. You may be told to drink at least 8 10 glasses of water each day. This will help you pass the stone. If told by your doctor, change your diet. This may include: ?Limiting how much salt you eat. ?Eating more fruits and vegetables. ?Limiting how much meat, poultry, fish, and eggs you eat. Follow instructions from your doctor about eating or drinking restrictions. General instructions Collect pee samples as told by your doctor. You may need to collect a pee sample: ?24 hours after a stone comes out. ?8 12 weeks after a stone comes out, and every 6 12 months after that. Strain your pee every time you pee (urinate), for as long as told. Use the strainer that your doctor recommends. Do not throw out the stone. Keep it so that it can be tested by your doctor. Keep all follow-up visits as told by your doctor. This is important. You may need follow-up tests. How is this prevented? To prevent another kidney stone: Drink enough fluid to keep your pee pale yellow. This is the best way to prevent kidney stones. Eat healthy foods. Avoid certain foods as told by your doctor. You may be told to eat less protein. Stay at a healthy weight. Where to find more information National Kidney Foundation (NKF): www.kidney.org Urology Care Foundation (UCF): www.urologyhealth.org Contact a doctor if: You have pain that gets worse or does not get better with medicine. Get help right away if: You have a fever or chills. You get very bad pain. You get new pain in your belly (abdomen). You pass out (faint). You cannot pee. Summary Kidney stones are rock-like masses that form inside of the kidneys. Kidney stones can cause very bad pain and can block the flow of pee. The stones will often pass out of the body through peeing. Drink enough fluid to keep your pee pale yellow. This information is not intended to replace advice given to you by your health care provider. Make sure you discuss any questions you have with your health care provider. Document Released: 12/27/2008 Document Revised: 11/27/2019 Document Reviewed: 11/27/2019 [employer] Patient Education 2020 [employer]. Follow Up Care 04/22/2022 09:22:48 With:Patrick ALFONSO MD, URL Address: [address] [place], [place] [id number]- When: Unknown [facility] evaluation + Plan note Future Appointments Appointment Date:04/27/2022 09:00:00 AM Scheduled Provider:Nicky WOODS MD Location:[facility] Appointment Type:[facility] Appointment Date:10/22/2022 08:45:00 AM Scheduled Provider:Patrick ALFONSO MD Location:[facility] Appointment Type:URO Office Visit Diagnostic Tests Pending * Calculi Analysis Urinary 04/23/22 [facility] evaluation + Plan note Future Appointments Appointment Date:05/13/2022 12:30:00 PM Scheduled Provider: Location:[facility] Appointment Type:Surgical PAT FT Appointment Date:05/13/2022 01:30:00 PM Scheduled Provider: [facility] Appointment Type:Surgery PAT COVID Testing Appointment Date:05/20/2022 11:30:00 AM Scheduled Provider: Location:[facility] Appointment Type:Surgery FT Appointment Date:10/22/2022 08:45:00 AM Scheduled Provider:Patrick ALFONSO MD Location:[facility] Appointment Type:URO Office Visit [facility] General Surgery [place] Evaluation + Plan note Future Appointments Appointment Date:05/20/2022 11:30:00 AM Scheduled Provider: Location:[facility] Appointment Type:Surgery FT Appointment Date:10/22/2022 08:45:00 AM Scheduled Provider:Patrick ALFONSO MD [facility] Future Appointments Appointment Date:10/22/2022 08:45:00 AM Scheduled Provider:Patrick ALFONSO MD [facility] Future Appointments Appointment Date:06/22/2022 02:40:00 PM Scheduled Provider:Nicky WOODS MD Location:[facility] Appointment Type:GS Post Op 15 Appointment Date:10/22/2022 08:45:00 AM Scheduled Provider:Patrick ALFONSO MD Location:[facility] Appointment Type:URO Office Visit [facility] Evaluation noteNo assessment information available [facility] Work Phone: Evaluation noteNo InformationNortGeisinger St[facility] [employer] Other History general Narrative - Reported* Type Description Date Medical History Diabetes Medical History Renal calculi Medical History Hematochezia Surgical History CHOLECYSTECTOMY Surgical History HEMORRHOIDECTOMY Surgical History Foot Surgery Surgical History bunionectomy [facility] [employer] Other Hospital course Narrative No data available for this section [facility] Hospital Discharge instructions No data available for this section [facility] [place] note No data available for this section [facility] Summary Purpose Family History No Family History Records Found Relationship Condition Age at Onset Recorded Date/T magui Not Specified Diabetes mellitus Unknown sister Malignant neoplasm of stomach Unknown father Malignant neoplasm of esophagus Unknown family member Malignant neoplasm of stomach Unknown Advance Directives No Advanced Directives Records Found Advance Directive Response Recorded Date/ Time Advance Directives No January 21 1:11pm Procedure Findings Note PROCEDURE DETAILS Preoperati ve Diagnosis: Phimosis, N47.1 Postoperative Diagnosis: Phimosis, N47.1 Surgeon: Nicky Swartz Resident/Fellow/Other [employer]: Radha Madrigal Procedure: 1. CIRCUMCISION Anesthesia: No anesthesiologist associated with this case Estimated Blood Loss: 20 Findings: see dictation Specimens(s) Collected: yes, foreskin Urine Output: 200 Electronic Signatures: Nicky Swartz) (Signed 05-Sep-2020 12:29) Authored: Post-Operative Note, Chart Review, Note Completion Last Updated: 05-Sep-2020 12:29 by Nicky Swartz) Additional Source Comments (unrecognized sect ion and content) No Status Records FoundNo Status Records FoundNo Status Records FoundNo Status Records FoundNo Status Records FoundNo Status Records FoundNo Status Records Found INFORMATION SOURCE (unrecogn ized section and content) DATE CREATED AUTHOR 01/12/2018 [facility] DATE CREATED AUTHOR AUTHOR'S ORGANIZ ATION 09/16/2020 [facility] DATE CREATED AUTHOR AUTHOR'S ORGANIZ ATION 11/04/2020 [facility] DATE CREATED AUTHOR AUTHOR'S ORGANIZ ATION 11/04/2020 [facility] DATE CREATED AUTHOR AUTHOR'S ORGANIZ ATION 12/04/2022 [facility] [place] [facility] DATE CREATED AUTHOR AUTHOR'S ORGANIZ ATION 12/06/2022 [facility] DATE CREATED AUTHOR AUTHOR'S ORGANIZ ATION 04/26/2023 [facility] Care Team (unrecognized sect ion and content) Team Status: Active Member Role Status Dates Jude Ruvalcaba III , DO Primary Care Provider Active Team Status: Inactive Member Role Status Dates Jude Ruvalcaba III , DO Primary Care Provider Active Domonique Myers APRN Attending Provider Active Goals (unrecognized section and content) Goals may be documented in a n alternate section REASON FOR VISIT (unrecogniz ed section and content) RefillsSORES IN MOUTH HEADAC HE, EAR PAIN FOR RECORDS PERTAINING TO PATIENTS WHO ARE OR HAVE BEEN ENROLLED IN A CHEMICAL DEPENDENCY/SUBSTANCEABUSE PROGRAM, SOME INFORMATION MAY BE OMITTED. This clinical summary was aggregated from multiple sources. Caution should be exercised in using it in the provision of clinical care. This summary normalizes information from multiple sources, and as a consequence, information in this document may materially change the coding, format and clinical context of patient data. In addition, data may be omitted in some cases. CLINICAL DECISIONS SHOULD BE BASED ON THE PRIMARY CLINICAL RECORDS. [facility] [employer] [facility]. provides no warranty or guarantee of the accuracy or completeness of information in this document.
== END 2023-06-06 09:05 | disposition home or self-care (01) ==
LOC: RAD 09:04
PROVIDERS: Visit Provider Orthopaedic Surgery
DX: M84.362A Stress fracture, left tibia, initial encounter for fracture (principal)
CPT/HCPCS: 73560

== ENCOUNTER 2023-06-27 14:30 | Emergency (ER) | payer OTHER, SELFPAY ==
[2023-06-27 14:33] VITALS: BP 139/99; PULSE 82; RESP 16; TEMP 36.8; O2SAT 99; BMI 31.6
--- NOTE | 2023-06-27 14:54 | ED.DENTAL1 ---
HPI - Dental/Oral General Chief complaint: Dental/Oral Stated complaint: MOUTH PAIN/SWELLING Time Seen by Provider: 06/27/23 14:34 Source: patient Mode of arrival: walk-in Limitations: no limitations History of Present Illness HPI Narrative: Patient is a 42-year-old male who presents to the emergency department for the evaluation of a painful sore in the inner, lower lip that has been present for several days. He feels as though the lip is swollen. He has had no tongue swelling, difficulty breathing. He has been using multiple jwwl-mfz-kevookx medications without improvement. Related Data Previous Rx's Medication Instructions Recorded prednisone 20 mg tablet 20 mg PO DAILY #5 tabs 01/09/23 ibuprofen 800 mg tablet 800 mg PO Q8H PRN pain #20 tabs 03/09/23 ketorolac 10 mg tablet 10 mg PO TID PRN pain #10 tabs 06/27/23 Allergies Allergy/AdvReac Type Severity Reaction Status Date / Time No Known Drug Allergies Allergy Verified 06/27/23 14:39 Review of Systems ROS Constitutional Denies: fever or chills Ears, nose, mouth, and throat Reports: swelling of lips/tongue; Denies: throat pain or nasal congestion Cardiovascular Denies: chest pain Respiratory Denies: shortness of breath Gastrointestinal Denies: nausea or vomiting Genitourinary Denies: painful urination Musculoskeletal Denies: back pain or neck pain Neurological Denies: headache Endocrine Denies: excessive urination Hematologic/Lymphatic Denies: easy bruising PFSH PFSH Social History Smoking status: Current every day smoker Exam Narrative Exam Narrative: Gen.: Awake, alert, in no distress Head: Normocephalic, atraumatic ENT: Moist mucous membranes; large aphthous ulcer of the inner lower lip, no vesicles or swelling noted of the lips. No tongue swelling, airway widely open and patent with clear speech. Respiratory: No respiratory distress Extremities: Moves extremities equally Psych: Normal mood and affect Neuro: No focal neuro deficit Skin: Warm, dry, intact Constitutional Vital Signs, click to edit/add: Last Vital Signs Temp 98.3 F 06/27/23 14:33 Pulse 82 06/27/23 14:33 Resp 16 06/27/23 14:33 BP 139/99 H 06/27/23 14:33 Pulse Ox 99 06/27/23 14:33 O2 Del Method Room Air 06/27/23 14:33 Course Vital Signs Vital signs: Vital Signs Temperature 98.3 F 06/27/23 14:33 Pulse Rate 82 06/27/23 14:33 Respiratory Rate 16 06/27/23 14:33 Blood Pressure 139/99 H 06/27/23 14:33 Pulse Oximetry 99 06/27/23 14:33 Oxygen Delivery Method Room Air 06/27/23 14:33 Temperature 98.3 F 06/27/23 14:33 Pulse Rate 82 06/27/23 14:33 Respiratory Rate 16 06/27/23 14:33 Blood Pressure 139/99 H 06/27/23 14:33 Pulse Oximetry 99 06/27/23 14:33 Oxygen Delivery Method Room Air 06/27/23 14:33 MDM - Dental/Oral MDM Narrative Medical decision making narrative: Exam is consistent with stomatitis/aphthous ulcer of the lower lip. Topical analgesia provided with BMX solution and anti-inflammatories. Follow-up with PCP and return to the ER if symptoms change or worsen Medical Records Attestation: I reviewed the patient's medical records. Discharge Plan Discharge Chief Complaint: Dental/Oral Clinical Impression: Stomatitis, Aphthous ulcer Time of Disposition Decision: 14:48 Condition: Good Prescriptions / Home Meds: New ketorolac 10 mg tablet 10 mg PO TID PRN (Reason: pain) Qty: 10 0RF No Action prednisone 20 mg tablet 20 mg PO DAILY Qty: 5 0RF ibuprofen 800 mg tablet 800 mg PO Q8H PRN (Reason: pain) Qty: 20 0RF Instructions: Oral Mucositis (ED) Stand Alone Forms: Portal Instructions Referrals: Physician,Non-Staff, MD [Primary Care Provider] - 1 week
[2023-06-27] MEDS: BENZOCAINE 30 ML, lidocaine HCL 15 ML MM (15:02)
== END 2023-06-27 15:06 | disposition home or self-care (01) ==
LOC: ER 14:54
PROVIDERS: Emergency Provider Emergency Medicine
DX: K12.1 Other forms of stomatitis (principal); K12.0 Recurrent oral aphthae; F17.210 Nicotine dependence, cigarettes, uncomplicated
CPT/HCPCS: 99282

== ENCOUNTER 2023-10-05 09:22 | Emergency (ER) | payer OTHER, SELFPAY ==
[2023-10-05 09:26] VITALS: BP 150/92; PULSE 77; RESP 18; TEMP 36.8; O2SAT 98; BMI 31.6
--- NOTE | 2023-10-05 09:34 | CT_ITS ---
The [address] [address] Patient Name: YESENIA TSE MRN: [facility]:[id number] date: 1980 Sex: M Assigned Patient Location: ER Current Patient Location: ER Accession/Order Number: [id number] Exam Date: 10/05/2023 09:50 Report Date: 10/05/2023 10:18 At the request of: DAYA WHARTON Procedure: CT abdomen pelvis w con EXAM: CT abdomen pelvis w con HISTORY: Pain at left inguinal hernia repair site COMPARISON: CT abdomen and pelvis 04/04/2022. TECHNIQUE: Following intravenous administration of 75 mL of Omnipaque 350, axial soft tissue windows of the abdomen and pelvis were performed with coronal and sagittal reformats. CT dose reduction technique was used including Automated Exposure Control. Findings: ABDOMEN: There is fatty infiltration of the liver. The gallbladder is surgically absent. The spleen, pancreas, adrenal glands and kidneys are unremarkable. The visualized portions of the bilateral ureters are nondilated. Evaluation of the bowel is limited given the absence of oral contrast. No bowel obstruction. The appendix is nondilated. The aorta is normal caliber. Mild atherosclerotic disease. No enlarged abdominal lymph nodes or free abdominal fluid. Tiny fat-containing umbilicus hernia. Pelvis: Unremarkable bladder. Postsurgical changes involving the left inguinal canal. No focal fluid collection. The prostate is nonenlarged. No enlarged pelvic lymph nodes or free pelvic fluid. No aggressive sclerotic or lytic osseous lesions. Partial sacralization of the left L5 transverse process. CT/CT abdomen pelvis w con IMPRESSION: 1. No acute abdominal or pelvic abnormality. 2. Fatty liver. 3. Other nonemergent findings, as described above. Electronically authenticated by: TEENA KRAMER Date: 10/05/2023 10:18
--- NOTE | 2023-10-05 09:34 | ED_ITS ---
HPI - Abdominal Pain General Chief Complaint: Abdominal Pain Stated Complaint: ABDOMINAL PAIN Time Seen by Provider: 10/05/23 09:24 History of Present Illness HPI narrative: 42-year-old male presents for pain in his left lower abdomen. A year ago he had inguinal hernia repair and beginning a few days ago he developed some pain. He feels like there is a bubble in there. He has been having some vomiting. No fever or direct injury. No pain on the right side. The pain is moderate to severe. Related Data Home Medications Medication Instructions Recorded Confirmed glipizide 2.5 mg tablet 2.5 mg PO DAILY 10/05/23 10/05/23 Previous Rx's Medication Instructions Recorded ibuprofen 800 mg tablet 800 mg PO Q8H PRN pain #20 tabs 10/05/23 Allergies Allergy/AdvReac Type Severity Reaction Status Date / Time No Known Drug Allergies Allergy Verified 10/05/23 09:26 Review of Systems ROS Narrative A ten point review of systems is negative except as noted above. PFSH PFS Social History Smoking status: Current every day smoker Exam Narrative Exam Narrative: Nurses note and vital signs reviewed and patient is not hypoxic. General: The patient appears uncomfortable. Skin: Warm, dry, no pallor noted. There is no rash noted. Head: Normocephalic, atraumatic Eye: Normal conjunctiva, no drainage Ears, Nose, Mouth, and Throat: oral mucosa is moist. Nares patent. Cardiovascular: Regular Rate and Rhythm Respiratory: Patient is in no distress, no accessory muscle use, lungs are clear to auscultation, no wheezing, rales or rhonchi Back: non-tender GI: Old healed left inguinal hernia scar present in the left lower abdomen. There is no palpable hernia present nor any mass. The abdomen itself is nontender. Musculoskeletal: The patient has no evidence of calf tenderness, no pitting edema, symmetrical pulses noted bilaterally Neurological: A&O, normal speech Psychiatric: Cooperative Constitutional Vital Signs, click to edit/add: Last Vital Signs Temp 98.2 F 10/05/23 09:26 Pulse 77 10/05/23 09:26 Resp 18 10/05/23 09:26 BP 150/92 H 10/05/23 09:26 Pulse Ox 98 10/05/23 09:26 O2 Del Method Room Air 10/05/23 09:26 Course Vital Signs Vital signs: Vital Signs Temperature 98.2 F 10/05/23 09:26 Pulse Rate 77 10/05/23 09:26 Respiratory Rate 18 10/05/23 09:26 Blood Pressure 150/92 H 10/05/23 09:26 Pulse Oximetry 98 10/05/23 09:26 Oxygen Delivery Method Room Air 10/05/23 09:26 Temperature 98.2 F 10/05/23 09:26 Pulse Rate 77 10/05/23 09:26 Respiratory Rate 18 10/05/23 09:26 Blood Pressure 150/92 H 10/05/23 09:26 Pulse Oximetry 98 10/05/23 09:26 Oxygen Delivery Method Room Air 10/05/23 09:26 MDM - Abdominal Pain MDM Narrative Medical decision making narrative: Including tach is negative. He will follow-up with his surgeon. There is no evidence of hernia or complication from his hernia surgery. Treatment diagnosis and follow-up were discussed with the patient. Differential Diagnosis Differential diagnosis: Likely abdominal pain, constipation, diverticulitis, pancreatitis (Inguinal hernia) and small bowel obstruction Lab Data Attestation: I reviewed the patient's lab results. Labs: Lab Results 10/05/23 Range/Units 09:40 WBC 11.1 H (4.0-11.0) 10^3/uL RBC 5.33 (4.70-6.10) 10^6/uL Hgb 15.4 (14.0-18.0) g/dL Hct 46.9 (42.0-54.0) % MCV 88.0 (80.0-94.0) fL MCH 28.9 (25.9-34.0) pg MCHC 32.8 (29.9-35.2) g/dL RDW 14.3 (11.0-15.0) % Plt Count 250 (150-450) 10^3/uL MPV 10.3 (9.5-13.5) fL Neut % (Auto) 68.0 (43.0-75.0) % Lymph % (Auto) 21.8 (20.5-60.0) % [place] % (Auto) 7.6 (1.7-12.0) % Eos % (Auto) 1.6 (0.9-7.0) % Baso % (Auto) 0.6 (0.2-2.0) % Neut # (Auto) 7.5 H (1.4-6.5) 10^3/uL Lymph # (Auto) 2.4 (1.2-3.8) 10^3/uL [place] # (Auto) 0.8 (0.3-0.8) 10^3/uL Eos # (Auto) 0.2 (0.0-0.7) 10^3/uL Baso # (Auto) 0.1 (0.0-0.1) 10^3/uL Abs Immat Gran (auto) 0.04 H (0.00-0.03) 10^3/uL Imm/Tot Granulo (auto) 0.4 (0.0-0.5) % Sodium 136 (136-145) mmol/L Potassium 3.3 L (3.5-5.1) mmol/L Chloride 98 (98-107) mmol/L Carbon Dioxide 23.4 (21.0-32.0) mmol/L Anion Gap 17.9 BUN 9.0 (7.0-18.0) mg/dL Creatinine 1.45 H (0.70-1.30) mg/dL Est GFR ( Amer) >60 (>=60) Est GFR (Non-Af Amer) 54 L (>=60) BUN/Creatinine Ratio 6.2 Glucose 316 H (74-106) mg/dL Calcium 8.5 (8.5-10.1) mg/dL Imaging Data CT scan - abdomen: Radiologist's impression: ITS Impressions Abdomen/Pelvis CT 10/05/23 09:34 IMPRESSION: 1. No acute abdominal or pelvic abnormality. 2. Fatty liver. 3. Other nonemergent findings, as described above. Electronically authenticated by: TEENA KRAMER Date: 10/05/2023 10:18 Discharge Plan Discharge Stand Alone Forms: Portal Instructions Chief Complaint: Abdominal Pain Clinical Impression: Abdominal pain Patient Disposition: Home, Self-Care Time of Disposition Decision: 10:29 Condition: Good Mode of Transportation: Private Vehicle Prescriptions / Home Meds: New ibuprofen 800 mg tablet 800 mg PO Q8H PRN (Reason: pain) Qty: 20 0RF No Action glipizide 2.5 mg tablet 2.5 mg PO DAILY Instructions: Abdominal Pain (ED) Additional Instructions: Follow-up with Dr. Woods Referrals: Physician,Non-Staff, MD [Primary Care Provider] - 1 week
--- OUTSIDE RECORDS SUMMARY | 2023-10-05 09:42 | XMS_ITS | CCD ---
Author Name Unknown Address [address] [place] [address] Organization [facility] Care Team Providers Care Information Systems Director Name Role Phone NAHOMY SHARP (MAZIN) Unavailable Unavailable Jude Ruvalcaba III Primary Care Physician SALBADOR HERNANDEZ Primary Care Physician [phone] DO Jude Ruvalcaba III Primary Care Provider ALMA DELIA Myers Attending Provider Asaad, Imad Unavailable HERRERA ., UMM Admitting Unavailable HERRERA .[facility]M Attending Unavailable [facility], [place] Primary Care Unavailable JANIA, DR JUANITA Guidry Consulting Unavailable EL .DONAVAN Consulting Unavailable [facility], [place] Primary Care Unavailable DAYA WHARTON Admitting Unavailable DAYA WHARTON Attending Unavailable JANIA, DR JUANITA Guidry Consulting Unavailable DAYA WHARTON Consulting Unavailable BRAYDEN ., DR NGUYEN Admitting Unavailable OWEN ., DR NGUYEN Attending Unavailable [facility], [place] Primary Care Unavailable OWEN ., DR NGUYEN Admitting Unavailable OWEN ., DR NGUYEN Attending Unavailable [facility], [place] Primary Care Unavailable OWEN ., DR NGUYEN Consulting Unavailable MOIZ TONG Consulting Unavailable SANDRA IIAMIRA Consulting Unavailable SABI FREEMAN Consulting Unavailable OWEN ., DR NGUYEN Admitting Unavailable OWEN ., DR NGUYEN Attending Unavailable ADE, [place] Primary Care Unavailable OWEN ., DR NGUYEN Consulting Unavailable OWEN ., DR NGUYEN Admitting Unavailable OWEN ., DR NGUYEN Attending Unavailable [facility], [place] Primary Care Unavailable OWEN ., DR NGUYEN Consulting Unavailable JANIA, DR JUANITA Guidry Consulting Unavailable OWEN ., DR NGUYEN Admitting Unavailable OWEN ., DR NGUYEN Attending Unavailable SALBADOR HERNANDEZ Primary Care Unavailable Asaad, Imad Admitting Unavailable Asaad, Imad Attending Unavailable Salbador eHrnandez Primary Care Unavailable Myers, Domonique L Admitting Unavailable Myers, Domonique L Attending Unavailable Ruvalcaba III, Jude R Primary Care Unavailroxie romero Georgia Del Cid Unavailable SALBADOR HERNANDEZ Primary Care Physician [phone] NILL, Nicky R Attending Unavailable NILL, Nicky R Attending Unavailable OWEN, aPtrick R Attending Unavailable NILL, Nicky R Attending Unavailable OWEN, R Attending Unavailable OWEN, R Attending Unavailable NILL, Nicky R Attending Unavailable NILL, Nicky R Referring Unavailable NILL, Nicky R Admitting Unavailable NILL, Nicky R Attending Unavailable NILL, Nicky R Referring Unavailable NILL, Nicky R Admitting Unavailable NILL, Nicky R Attending Unavailable Allergies Allergy Classification Reported Allergen(s) Allergy Type Date of Onset Reaction(s) Facility (8 sources) metFORMIN; Translations: [metformin] Drug Allergy Diarrhea (finding) [facility] (1 source) metFORMIN Drug Allergy [facility] (1 source) Acetaminophen / oxyCODONE; Translations: [Percocet 5/325] Drug Allergy [facility] Rep[facility] (1 source) No Known Medication Allergies; Translations: [No Known Medication Allergies] Propensity to adverse reactions (disorder) [facility] Repository Medications Current Medications Medication Drug Class(es) Dates Sig (Normalized) Sig (Original) acetaminophen 325 mg / oxyCODONE hydrochloride 5 mg oral tablet (1 source) Opioid Agonist Start: 05-20-2022 End: 05-25-2022 Percocet 325 mg-5 mg Tab 1 tab(s), Oral, q3hr Pain, 20 tab(s), Refill(s) 0, take with food or milk, [facility]/pharmacy #[id number], 180, cm, 05/13/22 12:43:00 EDT, Height/Length Dosing, [...] Date: 07/26/18 Status: [facility]dered [facility] Active fluconazole 150 mg oral tablet (2 [...] Ordered Start: 02-04-2020 take 1 capsule by [facility] every twelve hours Omeprazole 40 MG 1 [...] Daily, # 30 cap(s), Refills(s) 0, Pharmacy: [facility]/pharmacy #[id number], 180, cm, 10/22/22 9:12:00 EDT, [...] 10 day(s) Jan, Not-Taking polyethylene glycol 3350 720274 mg / potassium chloride 2970 mg / sodium bicarbonate 6740 mg / sodium chloride 5860 mg / sodium sulfate 25062 mg powder for oral solution (2 sources) [...] Translations: [Nausea] Episodic Other aftercare (1 source) 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 Residual codes; unclassified (1 source) Acquired absence of other specified parts of digestive tract; Translations: [ACQ ABSENCE OTH PART DIGESTV TRACT] Onset: 3 Episodic Screening and history of mental health and substance abuse codes (5 sources) Tobacco use and exposure - finding 04-28-2022 Chronic Substance-related disorders (15 sources) Smoker; Translations: [Nicotine dependence, cigarettes, uncomplicated] Onset: 3 04-23-2022 Chronic Comment on above: Added secondary to d ocumentation in Social History. Unclassified (1 source) CONTACT W/AND (SUSP) EXPOS COVID-19; Translations: [CONTACT W/AND (SUSP) EXPOS COVID-19] Onset: 2 Unclassified (1 source) Injury, unspecified, initial encounter; Translations: [Injury, unspecified, initial encounter] Onset: 3 Past or Other Problems Problem Classification Problem Date Documented Da te Episodic/Chronic Nonspecific chest pain (4 sources) Other chest pain; Translations: [OTHER CHEST PAIN] Onset: 02-17-2022 Episodic Results Test Name Value Interpretation Reference Range Facility Glucose Poct Glucometerson 0 11-30-2022 Glucose [Mass/Vol] 155 mg/dL Normal [facility] Comment on above: Result Comment: [facility] Glucose Reference Range is dependent on time and content of last meal. Glucose of more than 200 mg/dL in a nonstressed, ambulatory subject supports the diagnosis of Diabetes Mellitus. PERFORMED BY: [facility] [place] [address] PATHOLOGIST YOUTH SUPPORT WORKER IGLESIA SANCHEZ M.D. Performed By: #### G STIVEN #### Point of Care testing , Roland 11-30-2022 L --- Specimen: [id number] Received: 11/30/22 Status: JAGDISH Belcher Num: [id number] Spec Type: Surgical Subm Dr: Edvin Colunga MD Tissues: A Colon Biopsy (ASCENDING POLYP) Procedures: TAMMI/Jami Vu/Micro L4 Age/ Patient Sex Location Account Attending Physician Brian Tse/M [id number] Edvin Colunga MD SPEC NUM: [id number] RECD: 11/30/22 STATUS: JAGDISH PERDOMOQ NUM: [id number] REINA: 11/30/22 DR: Edvin Colunga MD ENTERED: 11/30/[address]: SPEC TYPE: Surgical DEPT: S ORDERED: HE/2, Gross/Micro L4 ORDERED: HE/2, Gross/Micro L4 Pathological Diagnosis A. Colon, ascending colon polyp, biopsy: - Tubular adenoma. Clinical Information Hematemesis Gross Description Received in formalin labeled with the patient's name, number and ascending polyp?? is one fragment of soft phipps tissue measuring 0.3x 0.3 x 0.1 cm. Entirely submitted in one cassette labeled A1. Microscopic Description A. Two glass slides with H E stained material have been examined. The microscopic findings support the above pathologic diagnosis. CPT Codes 30510 Specimen: [id number] Received: 11/30/22 [facility] [id number] Spec Type: Surgical Subm Dr: Edvin Colunga MD Tissues: A Colon Biopsy (ASCENDING POLYP) Procedures: HE/2, Gross/Micro L4 Patient: Brian Tse [id number] (Continued) Signed (signature on file) Daily Quarles MD 12/01/22 1158 Normal [place] ECG 12-Leadon 11-03-2022 ECG 12-Lead [id number]#1.00C D:127 Normal [facility] Operative Reporton 3 Operative Report [id number] D:127 Normal [facility] CBC AUTO DIFFon 10-28-2022 BASO # 0.1 103/ul Normal 0.0-0.1 [facility] Comment on above: Performed By: #### C BC #### [facility] [address] [place] [address] Dr. Yash Mckeon Basophils/100 WBC (Bld) 0.8 % Normal 0.2-2.0 [facility] Comment on above: Performed By: #### C BC #### [facility] [address] [place] [address] Dr. Yash Mckeon EO # 0.4 103/ul Normal 0.0-0.7 [facility] Comment on above: Performed By: #### C BC #### [facility] [address] [place] [address] Dr. Yash Mckeon Eosinophils/100 WBC (Bld) 3.3 % Normal 0.9-7.0 [facility] Comment on above: Performed By: #### C BC #### [facility] [address] [place] [address] Dr. Yash Mckeon Erythrocyte distribution width (RBC) [Ratio] 14.0 % Normal 11.0-15.0 [facility] Comment on above: Performed By: #### C BC #### [facility] [address] [place] [address] Dr. Yash Mckeon Hematocrit (Bld) [Volume fraction] 45.4 % Normal 42.0-54.0 [facility] Comment on above: Performed By: #### C BC #### [facility] [address] [place] [address] Dr. Yash Mckeon Hemoglobin (Bld) [Mass/Vol] 14.8 g/dL Normal 14.0-18.0 [facility] Comment on above: Performed By: #### C BC #### [facility] [address] [place] [address] Dr. Yash Mckeon IG # 0.04 10e3/ul Critically high 0.00-0.03 [facility] Comment on above: Performed By: #### C BC #### [facility] [address] [place] [address] Dr. Yash Mckeon IG % 0.4 % Normal 0.0-0.5 [facility] Comment on above: Performed By: #### C BC #### [facility] [address] [place] [address] Dr. Yash Mckeon LYMPH # 2.8 103/ul Normal 1.2-3.8 [facility] Comment on above: Performed By: #### C BC #### [facility] [address] [place] [address] Dr. Yash Mckeon Lymphocytes/100 WBC (Bld) 25.3 % Normal 20.5-60.0 [facility] Comment on above: Performed By: #### C BC #### [facility] [address] [place] [address] Dr. Yash Mckeon MANUAL DIFF REQ NO Normal [facility] Comment on above: Performed By: #### C BC #### [facility] [address] [address] [address] Yash Mckeon MCH (RBC) [Entitic mass] 28.6 pg Normal 25.9-34.0 [facility] Comment on above: Performed By: #### C BC #### [facility] [address] [place] [address] Dr. Yash Mckeon MCHC (RBC) [Mass/Vol] 32.6 g/dL Normal 29.9-35.2 [facility] Comment on above: Performed By: #### C BC #### [facility] [address] [place] [address] Dr. Yash Mckeon MCV (RBC) [Entitic vol] 87.8 fL Normal 80.0-94.0 [facility] Comment on above: Performed By: #### C BC #### [facility] [address] [place] [address] Dr. Yash Mckeon MONO # 1.0 103/ul Critically high 0.3-0.8 [facility] Comment on above: Performed By: #### C BC #### [facility] [address] [place] [address] Dr. Yash Mckeon Monocytes/100 WBC (Bld) 8.6 % Normal 1.7-12.0 [facility] Comment on above: Performed By: #### C BC #### [facility] [address] [place] [address] Dr. Yash Mckeon NEUT # 6.9 103/ul Critically high 1.4-6.5 [facility] Comment on above: Performed By: #### C BC #### [facility] [address] [place] [address] Dr. Yash Mckeon Neutrophils/100 WBC (Bld) 61.6 % Normal 43.0-75.0 [facility] Comment on above: Performed By: #### C BC #### [facility] [address] [place] [address] Dr. Yash Mckeon Platelet mean volume (Bld) [Entitic vol] 10.0 fL Normal 9.5-13.5 [facility] Comment on above: Performed By: #### C BC #### [facility] [address] [place] [address] Dr. Yash Mckeon PLT 250 103/ul Normal 150-450 [facility] Comment on above: Performed By: #### C BC #### [facility] [address] [place] [address] Dr. Yash Mckeon RBC 5.17 106/ul Normal 4.70-6.10 [facility] Comment on above: Performed By: #### C BC #### [facility] [address] [place] [address] Dr. Yash Mckeon WBC 11.2 103/ul Critically high 4.0-11.0 [facility] Comment on above: Performed By: #### C BC #### [facility] [address] [place] [address] Dr. Yash Mckeon POINT OF CARE GLUCOSEon - Glucose [Mass/Vol] 219 mg/dL Critically high 74-106 [facility] Comment on above: Performed By: #### P OCGLUC #### [facility] [address] [place] [address] Dr. Yash Mckeon PROF CHEM 8 (BAS METB)on Anion gap [Moles/Vol] 11.8 mmol/L Normal [facility] Comment on above: Performed By: #### B MP #### [facility] [address] [place] [address] Dr. Yash Mckeon Calcium [Mass/Vol] 8.6 mg/dL Normal 8.5-10.1 [facility] Comment on above: Performed By: #### B MP #### [facility] [address] [place] [address] Dr. Yash Mckeon Chloride [Moles/Vol] 101 mmol/L Normal 98-107 [facility] Comment on above: Performed By: #### B MP #### [facility] [address] [place] [address] Dr. Yash Mckeon CO2 [Moles/Vol] 28.0 mmol/L Normal 21.0-32.0 [facility] Comment on above: Performed By: #### B MP #### [facility] [address] [address] [address] Yash Mckeon Creatinine [Mass/Vol] 1.13 mg/dL Normal 0.70-1.30 [facility] Comment on above: Performed By: #### B MP #### [facility] [address] [address] [address] Yash Mckeon EGFR-AF SOUTH KOREAN >60 Normal >=60 [facility] Comment on above: Performed By: #### B MP #### [facility] [address] [address] [address] Yash Mckeon EGFR-NON AF [place]ORE[place] >60 Normal >=60 [facility] Comment on above: Performed By: #### B MP #### [facility] [address] [place] [address] Dr. Yash Mckeon Glucose [Mass/Vol] 196 mg/dL Critically high 74-106 [facility] Comment on above: Performed By: #### B MP #### [facility] [address] [place] [address] Dr. Yash Mckeon Potassium [Moles/Vol] 3.8 mmol/L Normal 3.5-5.1 [facility] Comment on above: Performed By: #### B MP #### [facility] [address] [place] [address] Dr. Yash Mckeon Sodium [Moles/Vol] 137 mmol/L Normal 136-145 [facility] Comment on above: Performed By: #### B MP #### [facility] [address] [place] [address] Dr. Yash Mckeon Urea nitrogen [Mass/Vol] 14.0 mg/dL Normal 7.0-18.0 [facility] Comment on above: Performed By: #### B MP #### [facility] [address] [place] [address] Dr. Yash Mckeon Urea nitrogen/Creatinine [Mass ratio] 12.4 mg/mg Normal [facility] Comment on above: Performed By: #### B MP #### [facility] [address] [place] [address] Dr. Yash Mckeon PROTIMEon 10-28-2022 INR Coag (PPP) [Relative time] {INR} Normal [facility] Comment on above: Performed By: #### P OCGLUC #### [facility] [address] [place] [address] Dr. Yash Mckeon INR GUIDELINES SEE BELOW Normal [facility] Comment on above: Result Comment: ZAN RED INR: 2.0 - 3.0 CONDITIONS NOT LISTED BELOW 2.5 - 3.5 FOR PROSTHETIC HEART VALVE REPLACEMENT 2.5 - 3.5 RECURRENT THROMBOSIS Performed By: #### P OCGLUC #### [facility] [address] [place] [address] Dr. Yash Mckeon PT Coag (PPP) [Time] 9.8 s Normal 9.0-11.6 [facility] Comment on above: Performed By: #### P OCGLUC #### [facility] [address] [place] [address] Dr. Yash Mckeon PTTon 10-28-2022 aPTT Coag (Bld) [Time] 30.5 s Normal 22.3-36.2 [facility] Comment on above: Performed By: #### P OCGLUC #### [facility] [address] [place] [address] Dr. Yash Mckeon RAD - MISCon 10-28-2022 RAD - MISC [id number]#1.00C D:127 Normal [facility] RAD - MISC [id number] D:127 Normal [facility] RAD - MISC [id number]#1.00C D:127 Normal [facility] RAD - Ultrasound Reporton RAD - Ultrasound Report [id number] D:127 Normal [facility] XR KUB 1 VIEWon 10-28-2022 [...] by: SABI FREEMAN Date: 2022-10-28 08:00 Normal [facility] XR KUB 1 VIEWon 10-25-2022 XR [...] by: JUANITA DYKES Date: 2022-10-25 06:41 Normal [facility] Ambulatory Visit Summaryon 0 10-22-2022 Ambulatory Visit Summary BRIAN TSE :1980 Visit Date:10/22/2022 Ambulatory Visit Instructions Your Diagnosis Ureteral stone Kidney stone Inguinal hernia Tests Performed Urnls Dip Stick Auto w/o Microscopy POC 83222 XR Abdomen 1 View -- Results Pending -- Please visit your patient portal for your results or contact your primary care physician. Your Care Team Attending Physician - Patrick OWEN MD Primary Care Physician - SALBADOR HERNANDEZ [...] with BRAYDEN CORONEL, NAVIN Aranda When: Where: [facility] [place] [address]- Medications What How Much When Instructions Unchanged glyBURIDE (GlyBURIDE (Eqv-Micronase) 5 mg oral tablet) 1 Tablets By Mouth 2 times a day Contact prescribing physician if questions or concerns Test Results Urnls Dip Stick Auto w/o Microscopy POC 58413 (10/22/2022) Bilirubin Urine Dipstick - 1+ Small Blood Urine Dipstick - Negative Glucose Urine Dipstick - Negative Ketones Urine Dipstick - Negative Leukocytes Urine Dipstick - Negative Nitrite Urine Dipstick - Negative Protein Urine Dipstick - 1+ (30 mg/dl) Specific [place] Urine Dipstick - >=1.030 Urine Appearance Urine [...] or sh (more content not included)... Normal [facility] Consent for Procedure/Surger yon 10-22-2022 Consent for Procedure/Surgery [id number] D:127 Normal [facility] Patient Educationon 10-23-19 23 Patient [...] these instructions at home: Medicines ? Take unmp-fft-tpesbyh and prescription medicines only as told by [...] 12/27/2008 Document Revised: 11/27/2019 Document Reviewed: 11/27/2019 [employer] Patient Education ? 2019 [employer]. Celina [facility] Urology Office/Clinic Noteon 10-22-2022 Urology Office/Clinic Note Chief Complaint 6 month f/u HPI Staff 6m KUB due to Ureteral Stone. Pt's PCP ordered Renal US. Pt did not get KUB done. Stone Analysis done 04/06/22 *No Urology Medications Pt referred to Dr Christina at time of last encounter due to [...] and history for this patient from Dr. Owen. I have reviewed and verified the staff [...] stone (N20.1: Calculus of ureter) Presented to [facility] ER on 04/04/22 due to right-sided [...] Patient states he had imaging done through [facility] roughly a month ago and he was told he has an 8 mm stone along with kidney lesions . Report faxed to our office today, will wait for it drop into patient's chart to review. [facility] and renal US report to Dr. Owen personally. Their office states that the KUB [...] -Will order KUB to be done @ [facility] today. If stone is visible we [...] inguinal hernia repair done 04/[address] Christina. Follow-up With When Contact Information Patrick OWEN MD, [address] [place] [address]- Additional Instructions: KUB to be done today, schedule R ESWL Patient Education Kidney Stones, [id number] I, Sylvia Piña, personally scribed for Dr. Owen on 10/22/2022 09:36:59. . Documentation recorded by the Sylvia abreu accura (more content not included)... Normal [facility] Comment on above: Result Comment: Elec tronically Signed By: Patrick OWEN MD\.br\Date and Time Signed: 10/22/22 09:59 EDT\.br\Electronically Co-Signed By: Sylvia Piña\.br\Date and Time Co-Signed: 10/22/22 09:42 EDT\.br\Electronically Co-Signed By: Sylvia Piña\.br\Date and Time Co-Signed: 10/22/22 09:55 EDT XR ribs RT min 3V w CXR1V*on 10-21-2022 XR ribs RT min 3V w CXR1V* [facility] [address] [place] [address] XRay Report Signed Patient: Brian Tse MR#: [id number] : 1980 Acct:[id number] Age/Sex: 41 / M ADM Date: 10/21/22 Loc: XDUCLY Room: Type: [facility] Attending Dr: Domonique Myers APRN Copies to: [...] Linda Sierra M.D.10/21/2022 2:10 PM Dictation Location: [place] [address] Transcribed By: ANGEL 10/21/22 1410 Dictated By: Linda Sierra MD 10/21/22 1406 Signed By: 10/21/22 1410 [facility] General Surgery Office/Clini c Noteon 06-25-2022 [...] Mother. Esophageal cancer: Father. Heart disease: Mother. Normal [facility] Comment on above: Result Comment: Elec tronically Signed By: SANFORD CORONEL, Nicky Guidry\.br\Date and Time Signed: 06/25/22 16:46 EST Provider Letteron 06-25-2022 Provider Letter (Inserted Image. Alka ble to display) June 25, 2022 [address]SE [address] [place] [address] BRIAN TSE 1980 To Whom It May Concern, Please excuse above patient from work. Date of Illness: From: _04/27/2022 To: _06/25/2022 May Return to Work On: 06/28/22 Restrictions: No restrictions Sincerely, Dr Nicky Christina [facility] Provider Letter (Inserted Image. Alka ble to display) June 25, 2022 [place] [address] BRIAN TSE 1980 To Whom It May Concern, Please excuse above patient from work. Date of Illness: From: _04/27/2022 To: _06/25/2022 May Return to Work On: 06/28/22 Restrictions: No restrictions Sincerely, Dr Nicky Christina [facility] Provider Letter (Inserted Image. Alka ble to display) June 25, 2022 [place] [address] BRIAN TSE 1980 To Whom It May Concern, Please excuse above patient from work. Date of Illness: From: _04/27/2022 To: _06/25/2022 May Return to Work On: 06/28/22 Restrictions: No restrictions Sincerely, Dr Nicky Christina [facility] Ambulatory Visit Summaryon 1 08-02-2021 Ambulatory Visit Summary BRIAN TSE :1980 Visit Date:06/02/2022 Ambulatory Visit Instructions Your Care Team Attending Physician - Nicky CHRISTINA MD Primary Care Physician - SALBADOR HERNANDEZ [...] Appointments Tuesday 2:40 PM EST With: Nicky CHRISTINA MD Where: General [facility] [address] [place] [address]- \.br\ Medications\.b r\ What How Much When Instructions\. br\ Unchanged glyBURIDE (GlyBURIDE (Eqv-Micronase ) 5 mg oral tablet) 1 Tablets By Mouth 2 times a day\.br\ Allergies\.br\ metFORMIN (Diarrhea)\.br \ Problems\.br\ Ongoing - Any problem that you are currently receiving treatment for.\.br\ BMI 31.0-31.9,adul t\.br\ Inguinal hernia\.br\ Reducible left inguinal hernia\.br\ Smoker\.br\ Smoker\.br\ Tobacco use\.br\ Historical - Any problem that you are no longer receiving treatment for.\.br\ Candidal balano-posthit is\.br\ DM (diabetes mellitus)\.br\ Elevated liver enzymes\.br\ Major depressive disorder, single episode\.br\ Uncontrolled diabetes mellitus\.br\ Ureteral stone\.br\ \.br\ [facility] General Surgery Office/Clini c Noteon [...] Mother. Esophageal cancer: Father. Heart disease: Mother. Normal [facility] Comment on above: Result Comment: Elec tronically Signed By: SANFORD CORONEL, Nicky Baker\Date and Time Signed: 06/02/22 17:25 EST Operative Reporton 2 Operative Report Patient: BRIAN TSE Age: 41 years Sex: [...] patient tolerated the procedure well. . Normal [facility] Comment on above: Result Comment: [...] All Problems BMI 31.0-31.9,adult / SNOMED CT 564803728 / Confirmed Inguinal hernia / SNOMED CT 1081718373 / Confirmed Reducible left inguinal hernia / SNOMED CT 126270435 / Confirmed Obesity / ICD-9-CM 278.00 / Possible Smoker / SNOMED CT 463067757 / Confirmed Added secondary to documentation in Social History. Smoker / SNOMED CT Z701KI8A-7021-75R8-6942 -RKO2K2167KG3 / Confirmed Added secondary to documentation in Social History. Tobacco use / SNOMED CT 155172453 / Confirmed Tobacco use / SNOMED CT NFVF5847-3005-8T79-N2V5 -524289EX1AX1 / Confirmed Added secondary to social history documentation. Resolved: Candidal balano-posthitis / SNOMED CT 333185990 Resolved: Uncontrolled diabetes mellitus / SNOMED CT 946768988 Resolved: DM (diabetes mellitus) / SNOMED CT 9Z978X7U-78G6-6DP1-U5CW -O007U20272J4 Resolved: Elevated liver enzymes / SNOMED CT 6857975115 Resolved: Major depressive disorder, single episode / SNOMED CT 20634892 Resolved: Ureteral stone / SNOMED CT 73581693 Canceled: Acute anal fissure / SNOMED CT 046941613 Canceled: Cholelithiasis / SNOMED CT 062343256 Canceled: Chronic headaches / SNOMED CT 653ES3P4-WX24-9E6Z-5684 -35MSXZ5RFM9B Canceled: Crohn disease / SNOMED CT 80675303 Canceled: Elevated blood pressure reading / SNOMED CT 502096398 Canceled: Fever / SNOMED CT 8384360064 Canceled: Hallux valgus of right foot / SNOMED CT 130101309 Canceled: Headache / SNOMED CT 23550864 Canceled: Hemorrhoid / SNOMED CT 822019715 Canceled: None / SNOMED CT 211982791 Canceled: Pneumonia / SNOMED CT 001110545 years ago 24 yo Canceled: Rectal bleeding / SNOMED CT 56299650 Histories Past Medical History: Resolved DM (diabetes mellitus) (5V477Z1F-01G0-3WL0-A5A [id number]-[id number]): Resolved. Candidal balano-posthitis (038093845): Resolved. Uncontrolled diabetes mellitus (435271936): Resolved. Elevated liver enzymes (5123516147): Resolved. Major depressive disorder, single episode (47645321): Resolved. Ureteral stone (44741895): Resolved. Family History: Cancer Sister Esophageal cancer Father Heart disease Mother Diabetes mellitus type 2 Mother Procedure history: Harris bunionectomy, right on 02/27/2015 at 34 Years. Harris bunionectomy, left foot on 01/02/2015 at 34 Years. Hemorrhoidectomy (96838216) in the month of 10/2012 at 32 Years. Extn - Extraction of tooth (9408422958). Colonoscopy (648687499). Lateral sphincterotomy (901257371). removal of ingrown toenail. Comments: 12/27/2014 12:24 EDT - Bassam SLAUGHTER, Lashawn left great toe Cholecystectomy (25074191). Colonoscopy (852537559). Circumcision as an adult (751849147). Social History Social & Psychosocial Habits Alcohol [...] Yes C (more content not included)... Normal [facility] Comment on above: Result Comment: Elec tronically Signed By: Jay Sagastume DO, Ray Winters\.br\Date and Time Signed: 05/31/22 14:23 EST Progress Note-Physician Patient: BRIAN TSE Age: 41 years Sex: Male : 1980 Associated Diagnoses: None Author: Ray Thompson Jr, DO Postoperative Information Post Operative Note: Post Anesthesia Care Unit. Anesthetic utilized: General. Health Status Allergies: Allergic Reactions (Selected) Severity Not Documented MetFORMIN- Diarrhea. Problem list: All Problems BMI 31.0-31.9,adult / SNOMED CT 486338160 / Confirmed Inguinal hernia / SNOMED CT 1799543800 / Confirmed Reducible left inguinal hernia / SNOMED CT 916646426 / Confirmed Obesity / ICD-9-CM 278.00 / Possible Smoker / SNOMED CT 008026241 / Confirmed Added secondary to documentation in Social History. Smoker / SNOMED CT S657EO7K-5835-78X7-1546 -IBE8J1254NQ4 / Confirmed Added secondary to documentation in Social History. Tobacco use / SNOMED CT 375243743 / Confirmed Tobacco use / SNOMED CT UVRL3859-9384-4X47-P9P0 -043709NN0NG5 / Confirmed Added secondary to social history documentation. Resolved: Candidal balano-posthitis / SNOMED CT 707389756 Resolved: Uncontrolled diabetes mellitus / SNOMED CT 082786630 Resolved: DM (diabetes mellitus) / SNOMED CT 6M905L2S-18U7-7HZ2-Z7YV -V452F26566C8 Resolved: Elevated liver enzymes / SNOMED CT 7442959995 Resolved: Major depressive disorder, single episode / SNOMED CT 04576749 Resolved: Ureteral stone / SNOMED CT 99688303 Canceled: Acute anal fissure / SNOMED CT 054658253 Canceled: Cholelithiasis / SNOMED CT 992493025 Canceled: Chronic headaches / SNOMED CT 292JD6J6-BZ91-3Z5T-8768 -45CWQT6UQH1L Canceled: Crohn disease / SNOMED CT 15567180 Canceled: Elevated blood pressure reading / SNOMED CT 633901701 Canceled: Fever / SNOMED CT 7782876205 Canceled: Hallux valgus of right foot / SNOMED CT 209309541 Canceled: Headache / SNOMED CT 94370571 Canceled: Hemorrhoid / SNOMED CT 347143957 Canceled: None / SNOMED CT 185371950 Canceled: Pneumonia / SNOMED CT 909317750 years ago 24 yo Canceled: Rectal bleeding / SNOMED CT 02674257 Physical Examination Vital Signs 05/20/2022 14:41 EDT [...] bpm bpm Respirat (more content not included)... [facility] Comment on above: Result Comment: Elec tronically Signed By: Ray Thompson Jr, DO\.br\Date and Time Signed: 05/31/22 14:23 EST IntraOperative Documentson 1 07-27-2021 IntraOperative Documents [id number] CD:127 [facility] Coding Summary.on 05-25-2022 Coding Summary. CD:[id number]:5177801T Gh0 bWw+PGhlYWQ+TQ6VNVKfV10 ksRLjeF7FY8kIDG8TTTMPUO QRBN9IBC8vxZQ9RBnkJ2Zfj iAv DyvuhMLiPU68GPm7TRA2pMp pSEuhaG6uiCCmO5h2QgIyWB 92mS44CHlmOUYnSbF4KdRai jsgbWFy L5qiQnEecSUaPmz+PHRhYmx lIHdpZHRoPScxMDAlJyBzdH efWK6eDn6bJUAdUEVfoQpip HNlOiBj w3pbOLNaEVnhGY5hcWbxD0Q kkUL1OSTwp7s1Qt02pWF+PH NrWIV0vRpzDWush241RjNto 5crGCO4 kVJuPXbjEMO2W58lf7L4OTH gTHLvOWM5aXD1mZ9rkIchqs gvY6TziCRhMtI2ARF1cXFko Z3isDkh igqvxF3lXti+R76UMT2PUCY XFM8KJir5I5DmExxbdDR+PC 91BGFkSQ95hIRfmXWue8fen Xi9WySw DKYjWIK6lIoyFRkdk5IqIPH zX54iqKSfn0S3SUFpuKgygZ CaEgNrpVF7bW7uSOefzvsms 2hvdzsn Ghehz3pxzw53aN80B98iMFj tYWGvNVS4HPLrACFrxRzowm 5xbN9cEq1+SBook7tck6qoj Cx5BcYr UUPrkfLseCdfHLK8v5ErYf9 9Y3BkmYupy7GvWlt8ow70lO Qze8G2vXJ4VGmlMKRkyJ3dJ WxlZnQ6 WTQtWzIbwK09wXGsMKhmNs7 ovBuzyKczBO8cNLPdqqrqQR WlaM6sVRHftFRmpDqkOV3fI TBpbjtm n388PxDlQZP6JCAhoWRtZ5Q csD3rTbElTSFqNIVtF4CmfP TpLBhkU983RThsRmH2EQAiw sStI4Lf UKUgfTkbFcW3i1J7Ed3Go9J hicetMEG1NKfkAUOwZqVzVz WsCxW5Q4PsJpo8XXCmuEoxT N8yW6Sc BYKrixhfoukvwZY6KCKbIDM luE53jNYwQNftKm1ia7D1w9 57JUVkTLDklG02Yl6bpUeqK TBwdCBU iN1tezmhy1wxhugvNyLbDJY eCSl3FQk0KHEkbNjuDeVyUO S2AmD7DVE1oXXglQ3gvFuap habbV6e Oyc+Q88wiH4bNXI9STB4ptq lIPOhzqXkRC50MW07U7JxAk wvdGFibGU+PGRpdiBzdHlsZ M6jAdHi i0wgq9OzERorD0ScVCTbUMk vDdm8FYThLLN8cIB6wV9bJD XhOLnmt0Y0aJP9S3BagxJrn f5dv8dn OPPxQVfbE65dyBNyz5F0HGK rvEY5AILfvHeqKjNreK33Te c+CCMugCapf7GaIodpp2tyt 9hgnPc9 AuDiXALhekTeeFewQPA2u5W mRi04X40mLPlaZNTmNJUlFW UuUMEeiKaclx0vpC0sDq0+P GNvbCB3 vTF7sH9pYMDhStU7RIstS84 8DpKzmSKcLeahq0odx7ubsD x2XjNpQQGozcSzvSnwVAY4x 4SsYo93 F19hTKddQZBsAJRtSKDtRQJ orTsfum8znR1fLq9+PC9jb2 qybw47vE19xFL+JUSuXOQ6x WxlPSdw MUFvgC4nNWhmPqH9QJVsJtT yqE24xBArVZlnUa8exEoeqO gqCZ9pMAWcxqgki425HmVaj 2xkIDEw jPWsOIjkMKD0Q41vi5J0UYZ gGXHhXZZ9pAZ6uN2zaXokai ogbGVmdDsgdmVydGljYWwtY OhyE625 IHRvcDsnPlBhdGllbnQgTmF wGSi8X2VlLyy4FZIrrBwgMR 0iwAPfEKacLx2uhZisdXjlB N4sIGPk vgicd416PeGmx4cuKUDhfJT mIHnlSNO2C77bk0A4HAPaAL MnKYS6dLG6aR8fdRtmfoyhy GVmdDsg qoLdkCmbCHanSDvxZ600PQQ zgGpkBxBkbkCfOSCyeRN8XA 16DV90pNRfu7W9nVT3F1BqM GRpbmct lfgmaQN3FCQbIYYkhG36Re4 gwCenHe6uRHIvVWL2RZNwtC EnX8OgtY8uQtSoDDIpBYJlL 3RleHQt GForO430NKwxBbR0WSUxrhK bS2OaDGCwdUmfAhG8x7A8Dq 2OH9K3LG76WJ46sJBje2V6q EQ3J2Ua CAEmtacukgxlaNT3BEFcMNA szG44Je8xbKwuEz9fOAPnON A2VUKcwWThM1ByoX8iJrVxU DAwMDAw O8JraAMoVEltO555DBcgPfS 8LHSzocGyC4TtLILbvTqpKl K8f2J8Bu7CLGm7DS94UQ87l QZad5S0 dEB8X7ZxQCLlaylpmtrtrGF 5BYDqZHJppD37Cg0pyLejBp 9fCLNfIYX7TUOpsXLkF3Atq E0eYeEg LUZoZVLfY9SuwTMjTZrsQ99 2HNviIqB9UYIdleDyK6XzRI CbcKgjAiO1z3B4Ul7VYZOdQ H30PIL5 sOI2EH62QU45N2ZsNromzNZ ibGU+PHRhYmxlIHdpZHRoPS epLMQjHaIxbGcaJV7hXz4gU GVyLWNv bGhdvAZgKdSow8kyNJKjYMh wIV6dxLdiK2EkoNX7BFPdc7 o9Eg70C39cF3SxnVT+PGNvb CL1sKF2 hF5lAlYiHdP8TDnzH790IgR guSQtLtoad9tem9egjCa0Sg L1ACAhgpNrpCkqCWU1z3JhP t74A78v IHdpZHRoPSIxNSUiIHZhbGl jhi1arK9yNt0+IFGtwEQ3vP T9gQ6kIqGjWoY0XZruY451O nRvcCIv Ogpux9xjx6xhyYf8BsKlQPX wdhEppHmhXGI2o2UmEq13K3 OpuOzoz5IeUio7cr20jUAyh 8X1iCS2 N2QcNGCoxnqzzCJycBakRB6 jZRFwakkoQZYbwB6zJTXqR5 b2TlOwXqV5RYkaQ9HkdeQ5D DEwcHQg VTffTRD0U18ji0G5ULKtZUX eGRB4nNX1hM8ysFczsgcjhV VmdDsgdmVydGljYWwtYWxpZ 246IHRv rOfrSNWkgL1qINNviEYzeQi rOE4aKKKzvnvxVivDTpHJMk FvIJ1CT6DQABGFUO82HX04p DOoe5Q3 zKT0Y6OeBUAoeshleohdcCN 3VQHdUHFsjF75tFOnGSnwWh 0yi0O7y768EAZdSGCgxU76W w9bmEjc EMNrnTZDyE6xlpbuy1ibotu vSuAmRKAeVEu3QAj6ETZsnC toClKgOAI6ZqG2FCV1uHHrt M0pyHaw mvdatX3tJrs+MDQvMDUvMTk 4MjwvdGQ+AKFeMGD5dDnrPZ qvANKjvA4mANKuD9f2XrQpT kY9TAfe I3ToMONclzckLk26mM8hIyM bQwL4WNtnZ7AceqK5PBBnnT NlUGzeCGQ5S25yv8C8KQMbV DAwMDA7 lVX0wC9duFzbchxgrMAepTm ezcHszJaaGPlrDUvnR808AI VjbHeaZsUgWIccVFGpXU27S Y77nZDl m0A7qDP9R7QeZVKnzbtcusn xqSR1PQXwHVVkvE36jDMvKI laGn1fk4N2u522WDZoAOBkg B41Vm9t hBaxHCMmlNVGwF0qqyjvb9r vxysrIxZsLDZfWHz4COa0VC XnvGsjEsYjZNE3PrI1AMT7q CSmcO0r vMtvmzdbrC3fOlg+TWFsZTw vdGQ+GQCaXOD7wIykVQjxPM AaqV3qWBFsE5u2ZhFrOsX6B CybF8Qi YJKdgaciHk54wX7gJgMdImU 8BHvkM8SailB7DFBplWHbMZ xiDPA5J65so8P2ABZjQHZzM AW5fYA9 qF5fzNppekpgbGOyqZlbhkA fvEdwUScmMWujS598FLGkyT zeGpGaGaRwXXLjkfpzS9YeP SBEYXkg V3NzS7DbaNeajXF+DZ19ff9 2F0YhKbcpTsc7RKJsDQI7kY T5vM8kHMFrWTxqd7R3hHN4I 2JvcmRl ck5wj5pxOXSrYFadR85ioQQ sg2C1TVRwfFJ9GBRxwOsjBa ZfaI12Yqy+RZZrvWlon2HfE ltop1hy i4gqhHi7JhCuYMBygaNlaNp wZPX7b4KnLa08Q62ePCbiVD QeLWKgNAKeMWBjjOfphy8it G9wIi8+ EVIihWA6eQG6bZ5dWcKmNeW 2XDqoP586XgMewBMnPkgoi4 btu0apsWf5XmYfJQQjgxQqm WduPSJ0 c0ByFr45Z5LapDwrq0BtRpn 9os42sPZke1S9qHK6R9RwZH CovpxtuWLomZqxFD9pXPUkl jtwYWRk bE0wFZRiA9z5VyMjRdT6NVa iX0SfxmT9GDHgkJWjKERlsT XYhS9ogxkzg7qaqthwVqSqR DAwMDt0 NKb6DCEenFoeHiFzBSM4KbS 1EZE4gWNupM8gsBjgwumgrY 9wOyc+JQn7h0ifzYYgIV6wv ZG2KJ74 YR97nSPvt9N5rDL6B8VzJBT vqraenxrmnLW8OVJqHHGvhM 54Jj2lcCuuYj6jQRQvWVG0D FRpbWVz I5KpfB5iYzMaRJNmASXfP1E edJMtOIfvP063ZDqdZpG7BI TeonZlL9DvYRRryBmwMaQ0l 1Z4Hk3N FQ04CD45WI90tKCih2S3kIC 0V6TuLJDanchiysrhnPK3VL PoJILvxI04Yu3nyOalLx5qT CAxMHB0 NZUaiAElB2SajP8yKkRcMPL xIIVdK3VhzZJoZLxwE069EC onJkW3QZNpcvPbO7GoDXXsp WduOiB0 a7Z8Gf7LIa28KO46MY21aUX ot5K6hJX8M9NxNVGvzwuehw jidLN5YDZpMNSoyJ07Db1zi IcfCw1f ICAkNIK7CXWcuYWtL2VmoH4 wIdTeVRWjZQXcB6XdlDVpZT vdW471ETayTtD1ZQVmnyHgK 2FsLWFs aExaRwW6q2P8Ls9NVWstyol 4M2GhHybkrLD+AF21QIUzHS 49gJIamUVox6awoNp1NqNpP CUnIHN0 eWxl (more content not included)... Normal [facility] Main OR Intraoperative Recor don 05-25-2022 Main OR Intraoperative Record Normal [facility] Consent for Anesthesiaon Consent for Anesthesia [id number]#1.00C D:127 Normal [facility] Discharge Instructionson Discharge Instructions [id number]#1.00C D:127 Normal [facility] IntraOperative Documentson 1 IntraOperative Documents [id number]#1.00C D:127 Normal [facility] IntraOperative Documents [id number]#1.00C D:127 Normal [facility] Operative Reporton Operative Report SURGERY DATE: 05/20/2022 PREOPERATIVE DIAGNOSIS: Left inguinal hernia POSTOPERATIVE DIAGNOSIS: Left inguinal hernia with small indirect hernia and cord lipoma OPERATION: Left inguinal herniorrhaphy with Bard Prolene mesh insertion ANESTHESIA: General endotracheal as well as a left-sided TAP block ANESTHESIOLOGIST: Nancy Amaral Jr..OSandra ESTIMATED BLOOD LOSS: Less than 5 mL [...] to Recovery Room in good condition. Nicky Christina M.D. FACS ls Dictated: 05/20/2022 [id number] Transcribed: 05/21/2022 *Salbador Hernandez, [facility] Comment on above: Result Comment: Elec tronically Signed By: SANFORD CORONEL, Nicky Guidry\.br\Date and Time Signed: 05/21/22 15:22 EDT Pre-Certification Formon Pre-Certification Form [id number]#1.00 CD:127 [facility] Preoperative Documentson Preoperative Documents [id number]#1.00C D:127 [facility] CHEMISTRYOrdered By: Lab ROP User on 05-20-2022 Glucose [Mass/Vol] 173 mg/dL High 55 - 99 mg/dL FT C POC Subsection Comment on above: Result Comment: Dayanara BAUTISTA POC Device SN [id number] Invalid Interpretation Code [facility] POC Subsection POC User ID [id number] Invalid Interpretation Code [facility] P[facility] Subsection POC Username CHINEDU POSADAS Invalid Interpretation Code [facility] POC Subsection Capillary Glucose POCon 04-25 Glucose [Mass/Vol] 173 mg/dL High 55-99 [facility] Comment on above: Result Comment: Dayanara BAUTISTA Performed By: #### 2 [id number] ####[facility] [address] [place] [address] Consent for Treatmenton 04-25 Consent for Treatment [id number]#1.00C D:127 Normal [facility] Inpatient Patient Summaryon 05-20-2022 Inpatient Patient Summary [address] [address] [facility] Clinical Discharge Instructions PERSON INFORMATION Name: BRIAN TSE PHYSICIANS Admitting Physician: Nicky CHRISTINA MD Attending Physician: Nicky CHRISTINA MD PCP: SALBADOR HERNANDEZ CNP Discharge Diagnosis: Indirect left inguinal hernia Comment: PATIENT EDUCATION INFORMATION Instructions: Medication Leaflets: Follow up: With: Address: When: Nicky CHRISTINA [address] [place] [address], [facility] [address], [address] [address] Business (9) Within 7 to 10 days Type Location Start Finish State U[place] Office Visit [facility] 10/22/2022 8:45 AM 10/22/2022 9:00 AM Confirmed MEDICATION LIST New Medications [id number], [address], [place] [id number], [phone] acetaminophen-oxycodone (Percocet 325 mg-5 mg Tab) 1 Tablets By Mouth every 3 hours as needed Pain. take with food or milk. Refills: 0. Medications to Continue with No Changes Other Medications glyBURIDE (GlyBURIDE (Eqv-Micronase) 5 mg oral tablet) 1 Tablets By Mouth 2 times a day. Comment: Normal [facility] Main OR PACU I Recordon 04-25 Main OR PACU I Record PACU Phase I Document Type FT Summary Primary Physician: Nicky CHRISTINA MD Finalized Date/Time: 05/20/22 14:31:51 Pt. Name: BRIAN TSE /Sex: 1980 Male Med Rec #: [id number] Physician: Nicky CHRISTINA MD Financial #: [id number] Pt. Type: A Room/Bed: Admit/Disch: 05/20/22 09:41:13 [...] Signed By: Analisa Maldonado RN 05/20/22 14:31 [facility] Main OR PACU II Recordon Main OR PACU II Record PACU Phase II Document Type FT Summary Primary Physician: Nicky CHRISTINA MD Finalized Date/Time: 05/20/22 16:22:47 Pt. Name: BRIAN TSE Vianey Benitez./Sex: 1980 Male Med Rec #: [id number] Physician: Nicky CHRISTINA MD Financial #: [id number] Pt. Type: A Room/Bed: [facility] Admit/Disch: 05/20/22 09:41:13 - Institution: Case Times [...] By: Lety Henderson LPN 05/20/22 16:22 Normal [facility] Monitor Recordon 05-20-2022 Monitor Record [id number]#[id number] CD:127 Normal [facility] Outpatient Surgery Discharge Instructionon 05-20-2022 Outpatient Surgery Discharge Instruction [place] [id number] Patient Discharge Instructions PERSON INFORMATION Name: BRIAN TSE Date of : 1980 Current Date: 05/20/2022 13:51:21 PHYSICIANS Admitting Physician: Nicky CHRISTINA MD Discharge Diagnosis: Indirect left inguinal hernia BRIAN TSE has been given the following list of [...] were given Patient Signature Date Clinican/Nurse Signature _ Date Follow up: With: Address: When: Nicky Billings, [address], [facility] [address] [place] [address] Business (1) Within 7 to 10 days Type Location Start [place]ish State [place] Office Visit [facility] [place] 10/22/2022 8:45 AM 10/22/2022 9:00 AM Confirmed Pharmacy Information: You may receive a survey from [employer] [employer]oy asking you to rate your care experience. Your feedback is important and will help us understand what we do well and how we can improve the quality of care we provide to you, your loved ones and our community. It?s an honor to serve you. Thank you for choosing [facility] HERE ARE THE MEDICATION CHANGES THAT OCCURRED DURING YOUR HOSPITAL STAY New Medications [id number], [address] [facility] [place], [place] [id number], [phone] acetaminophen-oxycodone (Percocet 325 mg-5 mg Tab) 1 Tablets By Mouth every 3 hours as needed Pain. take with food or milk. Refills: 0. Medications to Continue with No Changes Other Medications glyBURIDE (GlyBURIDE (Eqv-Micronase) 5 mg oral tablet) 1 Tablets By Mouth 2 times a day. PATIENT EDUCATION INFORMATION Instructions: Medication Leaflets: Normal [facility] Patient Education - Texton 1 Patient Education - Text Custom Normal [facility] Coding Summary.on 05-19-2022 Coding Summary. CD:[id number] Gh0 bWw+PGhlYWQ+BS9EHLEjT29 ubZRzoO2DX6jSBW6UEMXTPE FSDN1KQT8kiST6CXpgF9Ehq iAv CvgyvTBgPP74HKa3IPA6zBb iXPsgpW0mvUCiF8u7SyEuXB 46zO58VTpvUSGwGuY8BjRlb jsgbWFy D5zkZhMhqLCtLco+PHRhYmx lIHdpZHRoPScxMDAlJyBzdH qfMV8qLu3gYBLdSXToxZkzh HNlOiBj a7ysGAJcLNolDQ5wqSfsH0C gdMH2TPXll2k7Au50zEO+PH SvHKZ2cAqsTSgir765VzFio 7tqQSG9 nIUlATnvWWL0A48ah2J1QHM sYXTxUOH3bJR3pQ6yaKtofj ziI9DvuUTaCiN0JTX1mKPgs E0drLyl iqxglA3aIlw+S38OJW3OWPZ KGT8UJwn5A1DeBldjaXR+PC 27YBIoZF52hRYxzLTnt9sqi Mq6PmYb BRSiVYO0zSbcJWlth6SkPIQ gH36lyVTjk9N8WLPinEftkV GiFvApzDJ3yA2hNKdmmhtdx 2hvdzsn Ttgbg1cbcp59xC98U05jSGm tOQSpDEZ4TDJwYXNkySpgzm 0qrV0eBg1+OEdgw3mzh7jtm Rk8BtYi ZKCnhcCujUnnTTU1h8ZuDp8 4M5YhzNaxg2OqOgz0sc52iD Jzy0R7iGO5BUlsWQPmcN2uK WxlZnQ6 STEcLgYieV46sGMkLOmvKh5 gfBejhCruVU2oPTOijeepNA YsfD7wDHDggRXatExgYC1sB TBpbjtm e092DoNfUOI4FCLnzLJiS3O utC9hXuFzWXPsRHYmA4MivT JtQOioA037TLrlHkH3JVUyn wUbE7Cg ZNTnsNkdVmY8g6J0Qv9Iw0F saotdWRZ3ZIlvTOBzXaB4Ul KsYfP3E9BtWti2UVBetPeoI W3eB4Dl TXKivcsjyoeqgYX7OWKnUTE wyL25iVZiDTlcZp3ol3V5y4 87WFFrVTLdbU23Aa5ilYjtW TBwdCBU xW8zsjwqc3epiyjsOhPpCME mQLu3ACc7FABjxLzmGiCjPQ V7BgW5TAP2aMIdlY4ubUeio lgwnZ0p Oyc+J59qdP7vBQW6NMH1mer xVNLeblZzVI04ZC23I0ItAi wvdGFibGU+PGRpdiBzdHlsZ Z7yTvGf e0yzc7LjCGfdX2LsAFTfLSq cXcm1IGCoYCM2kRN3zP3tDS VcDZbuv0L2iZI5D0VbrpNxj t6al3ft LPApQEgrM66vtAJty2V2RNR krVY1HWEwsFwtAqWsvT85Lo c+JJMzdFvis8ReRbffp1uet 9asqQc0 ExVbUWGymcNvcIzrHAR8q2Q hNj71V98mDXecRMSuOXFyYO XlPICcqFunhj6mtW7oYs1+P GNvbCB3 oXX1eB3rHXDcDdL5KWjyE95 7DeAavTInUwgxo0qcs0kehP f9EqKmVCExuoWsmKalZDS0d 6WcPk43 Z86tJHezIPLsEFYoVFYkXUL wtKamjf4pkG4nDl6+PC9jb2 owxb38lJ13xCE+UHTdGKE0p WxlPSdw KATtoA5hPLooYwE8LFDuJhZ uhT19lPXuIJqeFu0heIkoiD ddHA7kQDFoopckf926UrRmi 2xkIDEw jZXgRRvaUOI4X34tg6T8OQV xWOLgDKR1rPT0mP6hbUkmxz ogbGVmdDsgdmVydGljYWwtY JloH374 IHRvcDsnPlBhdGllbnQgTmF wCIw5Z5AlPen5VQNrfJuxOX 7ygYQkUCrqLc8qpUesiJvmI J8qYREb bfudj402ImTyk7iqUJKlnQG xIKbjAST5J59sg7U0LSTgRC OjZFK5mJI9rT5ugTgluyxvi GVmdDsg icMgrSnyWFjcWUsaN252BED jwGayRlRypvLrIZPunDD5MX 87WD16gUGlq2A1nFQ4P2UmZ GRpbmct hdzuiPC7OXDbYNSxrW41Hd2 goEbePk9dYLSyKCQ8DMLgyZ LfV6QjzE5mXcOnLOFnOUOsP 3RleHQt MSsrU879CFerDhU0WRWlrwH lZ6DgXCVfpYmcUkD3z1X7Jr 4KH1A3UD87IA73vCMzm2P7l KW6F7Ia AWLopibptbjafGN5IUPpHSF xpW35Gm5gsCfkNp5cZSGkGN X6ZJNjgMTuZ9VrxK2zOnKqN DAwMDAw V2RecXVbOXfjN851VSazDiS 5ZGEtkhAoK9AmAYFfyIbrPy N4n0T4Rn6NAZo8WY11YF30v ZBtf9A7 bSW6D8GeLJSxzxiuletfaGO 0HMJoYOFreS27Jg0omAynBh 3aZSLuFCJ7JYFubVDvB4Lfi W2iMvLr WQBzWVJuS9IkgDJnPXqoR50 7KIjzHnZ6ELSbwfCvN9OmRQ NdhHrwNvB1p5X1In7EKKSbS Y83LUP7 zKV0QS20PV57N1HqDodiiYX ibGU+PHRhYmxlIHdpZHRoPS ctEMOhOnTbvMzzIA7pNt9vP GVyLWNv jHfreEUbMnXrr8ujSJVmGZa oCA6btSdnV2XtqIL5FDEup0 y9Xm49O06cX9IzbHN+PGNvb MA9rKV1 bO2hXhGnWoB5JKbzG316EoP umAYvCcgmb2zlr7jwcWe2Me J9APMeijXreNgaRGB3x3WrI c51F21r IHdpZHRoPSIxNSUiIHZhbGl fqt9pyX0xIj1+WAAurLC0fG L2rF3bPhCwMcI0NJjnW166J nRvcCIv Pcjjn9tvo1rdvQx4WbAwVCO wktWzqOxjART4q6HnPp69G5 DseBuin7YkZcj1tp41dSKof 7Y7wTN3 Q0QfMRKueihdhRTwqDmxZJ1 dQPQwrtadBJHsbA3xEXRlH5 t9WzTmGvC1GQcnJ8GzlhM7D DEwcHQg IIhkOUN4Z47jt8U7PMDxPYU wWAU1fWZ2dJ1otGkwdwyyyB VmdDsgdmVydGljYWwtYWxpZ 246IHRv bObmAOVeeY7hRUNeiPXsiMr uDF3nVLPqazmjNgjJTbUCUg InBQ0HW4VGKPODEJ02SA96z SRqb2M0 yVL8Q5JlTYKvtulwrcdnxNG 2YXDcWEXwnM63eLZlTVarRs 1dv5X1f265RTGuWNGsrO86N i3oaJuk FGBlnZUYtT4usxpws8zcpuo dRqVlBGKlFBg4MFr6VLWajF mlJyHuIAJ8SdJ2AOX2xVUmm B6kiQgm xltrvK2oPda+MDQvMDUvMTk 4MjwvdGQ+RNNaLGO3nQxvYK xlCJXabE5oPVQvN3h3DnDlY zO9LZcb C5YuGZIjsyegFr02hU2uTqI aYhC5QBobV0QqxbL9YBMmrY BuGDwrMBZ8V35nb3Y2HXKkR DAwMDA7 iIF8kA6jqWbgkqejaQSxwJy immVieDdcEKybHRpuX918ML XktSwlOhGkSPgbYJQeGR42Q E53jLSu b5L2kBN4D8BfEVEtxnaxxng ajOP0YRWvZKQjlB11hFCoML yyOk4fu1D1f357EQUiRDYdv N66Kq5o fEvgCYMkfZWUeQ0rkllss3i ihjnrJtXmHXWiLXu4AHx1GF OvgUnyZlTbYIM2NqA2WLP3v ISreK4e uPsqthgjeN9rEwj+TWFsZTw vdGQ+AGFyMGX9ePigGIfoFQ HpaJ6bDJWuN7d3YvFwWiY1X MknS1Hc VCYfidbtKz34eQ2rFlUiVoL 2QPbyC7HubdR6IRMslNXiKR nvBCU7O62mo1B0OPVwGMTsP IZ2gNR0 rE5rkZyxgqymuCVahFtqodX onBicVHxeOWgaC032XHVhdJ ihGv96fYZagJmdxdD6P7FuH jwvdHI+ EH26NOIdRT27pCSnzWPep8h heFm4OeZcWZQeSKQ3mIgfST cfe7BiBTEdE50bjDRae0R4V GNvbGxh aQQiTdMacJG9xR2pHKlibra pg8ypsxukUvmew8kyaj96zB 64H23xIXxdMCNvOOJvRRVfM HZhbGln cg8bxJ0wMp4+DOYjkIR7jTG 0rS5sNfLmYeH1ZMsdU179Hr KwqBZxCequj1tqe8gytYc7T jIwJSIg rrPzuTueBEG7c2LrKa86Z46 sIHdpZHRoPSIyMCUiIHZhbG ghsc3lpQ9fUo6+SF0bx1znl f65xJ79 dHI+EXFsDXA5lZekPMstRNO whX3wTYgvLjZ3WFWpSlGhnJ 84vQZyUTgxUy8jnAuupIqpZ Z9eNMVz fhlwi464IwEjh2trNIVshGP dTYqlOLK3G95xe3E2CWEwFP NePUT7vQG2nB7kcTvjaomrh GVmdDsg rsVuxBysUKtpBKscS023QTX mvKdcHzCkdWVgU5kjdaTEGE 1lOjwvdGQ+IMEuOJR2aOlqV SdwYWRk kX4mXGCqR4u2WlZxFiD9WMu cG6GuhlP9BIMvfYRpHDDdbN IOaK8qqvfme7dzncucVpDlF DAwMDt0 RCp7YUGiqWhuFiPbEII0YeH 2FNQ7kUApaW1poMapxznaeS 9wOyc+RklOOjwvdGQ+PHRkI ZS5zGyo QUduCCCxvZ0sEIFqQ3k2TjV bZqD0GUllY2MlujQ3TRDoeB TzGMDjfBLVqV0zybitk6lar jogIzAw JKEuBAv0JCj1FPOcuXndBgA eLGU5RfX4WZA7pZVcyH9ruR tpthhwaW0bCgl+TVJOOjwvd GQ+PHRk GDR5jXhlZUjtZAVhyZ5oEAM qI7d9QbPoKmA9WChaJ8Cumy Q8QMDroJDdANOlvCUTnO4gz xflb4iy kmonNtPiKQLrVOw7LFc6CNB agXdzOpXhIAS0RcR1BDG4nY GrgK1rkCngorxzcT6wOmj+U ZE3IJB6 YK70JO53P6KpCgqxcDPbkYV +PHRhYmxlIHdpZHRoPScxMD XyUtXaeEqgSI7lUb1nAYJuU WNvbGxh cHNl (more content not included)... Normal [facility] COVID-19 ([facility] [place]on 05-14-2022 Performing Instrument FT [facility] 2 Normal [facility] Comment on above: Performed By: #### 2 [id number] #### [facility] [address] [place] [address] SARS-CoV-2 (COVID-19) RNA TALIB+probe Ql (Resp) Not detected Normal Not Detected [facility] Comment on above: Result Comment: This test result should be correlated with clinical presentations and medical history by a healthcare provider to determine its clinical significance. This assay was performed by a reverse transcriptase real-time polymerase chain reaction (rt PCR) method on the [employer] system. This test has been authorized only [...] or revoked sooner. Performed By: #### 2 [id number] #### [facility] [address] [place] [address] SARS-CoV-2 (COVID-19) RNA TALIB+probe Ql (Unsp spec) Pass Normal Pass [facility] Comment on above: Performed By: #### 2 [id number] #### [facility] [address] [place] [address] Specimen source Nom (Unsp spec) Nasal Normal [facility] Comment on above: Performed By: #### 2 [id number] #### [facility] [address] [place] [address] BUNon 05-13-2022 Urea nitrogen [Mass/Vol] 10 mg/dL Normal 5-21 [facility] Comment on above: Performed By: #### 2 [id number] ####[facility] [address] [place] [address] CBC w/Indiceson 05-13-2022 Erythrocyte distribution width (RBC) [Ratio] 13.9 % Normal 10.9-14.2 [facility] Comment on above: Performed By: #### 2 [id number] ####[facility] [address] [place] [address] Hematocrit (Bld) [Volume fraction] 47.7 % Normal 37.7-49.0 [facility] Comment on above: Performed By: #### 2 [id number], [id number] ####[facility] [address] [place] [address] Hemoglobin (Bld) [Mass/Vol] 16.5 g/dL Normal 13.5-17.5 [facility] Comment on above: Performed By: #### 2 457754, [id number], 8711035, 4394253, 1520088, 1572206 ####[facility] [address] [place] [address] MCH (RBC) [Entitic mass] 29.3 pg Normal 27.0-34.0 [facility] Comment on above: Performed By: #### 2 792754, 73446375, 2637248, 9521590, 7927829, 4906481 ####[address] [address] MCHC (RBC) [Mass/Vol] 34.5 g/dL Normal 31.4-36.0 [facility] Comment on above: Performed By: #### 2 576194, [id number], 2658553, 1757998, 2551698, 7317050 ####[address] [address] MCV (RBC) [Entitic vol] 84.9 fL Normal 80.0-100.0 [facility] Comment on above: Performed By: #### 2 651252, 33488939, 6363718, 2880220, 6104873, 9611711 ####[address] [address] Platelet mean volume (Bld) [Entitic vol] 8.5 fL Normal 6.4-10.8 [facility] Comment on above: Performed By: #### 2 790147, 07421319, 0837780, 9495361, 0388593, 5251222 ####[address] [address] Platelets (Bld) [#/Vol] 210.0 E9/L Normal 150.0-500.0 [facility] Comment on above: Performed By: #### 2 358040, 74431281, 4278744, 3970578, 4583463, 9337324 ####[address] [address] RBC (Bld) [#/Vol] 5.6 E12/L Normal 4.3-5.9 [facility] Comment on above: Performed By: #### 2 374065, 48221463, 9152992, 7065089, 8035629, 4520121 ####[address] [address] WBC corrected for nucl RBC Auto (Bld) [#/Vol] 9.1 E9/L Normal 4.0-11.0 [facility] Comment on above: Performed By: #### 2 578153, 49722876, 4764982, 6807281, 9502727, 1596148 ####[facility] [address] [place] [address] CHEMISTRYOrdered By: SYSTEM SYSTEM on 05-13-2022 Anion gap [Moles/Vol] 15 mmol/L Normal 6 - 16 mEq/L [facility]isol Chloride [Moles/Vol] 102 mmol/L Normal 101 - 1 11 mmol/L [facility] Remisol CO2 [Moles/Vol] 22 mmol/L Normal 21 - 31 mmol/L [facility] Remisol Creatinine [Mass/Vol] 1.1 mg/dL Normal 0.5 - 1.3 mg/dL [facility] Remisol GFR/1.73 sq M.predicted among blacks MDRD (S/P/Bld) [Vol rate/Area] mL/min/1.73 m2 Normal >=59mL/min/1.7 3 m2 [facility] Chem S GFR/1.73 sq M.predicted among non-blacks MDRD (S/P/Bld) [Vol rate/Area] mL/min/1.73 m2 Normal >=59mL/min/1.7 3 m2 [facility] Chem S Glucose [Mass/Vol] 171 mg/dL Normal 55 - 199 mg/dL [facility] Remisol Potassium [Moles/Vol] 3.7 mmol/L Normal 3.5 - 5.3 mmol/L [facility] Remisol Sodium [Moles/Vol] 135 mmol/L Normal 135 - 145 mmol/L [facility] Remisol Urea nitrogen [Mass/Vol] 10 mg/dL Normal 5 - 21 mg/dL [facility] Remisol Consent for Treatmenton 04-25 Consent for Treatment [id number]#1.00 CD:127 Normal [facility] Consent for Treatment [id number]#1.00C D:127 Normal [facility] Creatinineon 05-13-2022 Creatinine [Mass/Vol] 1.1 mg/dL Normal 0.5-1.3 [facility] Comment on above: Performed By: #### 2 437898, 26293926, 2968608, 0505961, 3271158, 9566830 ####[facility] [address] [place] [address] Glucoseon 05-13-2022 Glucose [Mass/Vol] 171 mg/dL Normal 55-199 [facility] Comment on above: Performed By: #### 2 729388, 86335137, 8072070, 5524471, 4865444, 7941670 ####[facility] [address] [place] [address] HEMATOLOGYOrdered By: Scarlett Nicholson on 05-13-2022 Erythrocyte distribution width (RBC) [Ratio] 13.9 % Normal 10.9 - 14.2 % [facility] HemeAutoSS Hematocrit (Bld) [Volume fraction] 47.7 % Normal 37.7 - 49.0 % [facility] Hemoglobin (Bld) [Mass/Vol] 16.5 g/dL Normal 13.5 - 17.5 gm/dL [facility] MCH (RBC) [Entitic mass] 29.3 pg Normal 27.0 - 34.0 pg [facility] MCHC (RBC) [Mass/Vol] 34.5 g/dL Normal 31.4 - 36.0 gm/dL [facility] MCV (RBC) [Entitic vol] 84.9 fL Normal 80.0 - 100.0 fL [facility] Platelet mean volume (Bld) [Entitic vol] 8.5 fL Normal 6.4 - 10.8 fL [facility] Platelets (Bld) [#/Vol] 210.0 E9/L Normal 150.0 - 500.0 E9/L [facility]eAuto[facility] RBC (Bld) [#/Vol] 5.6 E12/L Normal 4.3 - 5.9 E12/L [facility] WBC corrected for nucl RBC Auto (Bld) [#/Vol] 9.1 E9/L Normal 4.0 - 11.0 E9/L [facility] Lyteson 05-13-2022 Anion gap [Moles/Vol] 15 mmol/L Normal 6-16 [facility] Comment on above: Performed By: #### 2 046803, 32034510, 1080615, 4074599, 9943296, 1212557 ####[facility] [address] [place] [address] Chloride [Moles/Vol] 102 mmol/L Normal 101-111 [facility] Comment on above: Performed By: #### 2 162216, 42233870, 8559969, 2465309, 8886838, 1569283 ####[facility] [address] [place] [address] CO2 [Moles/Vol] 22 mmol/L Normal 21-31 [facility] Comment on above: Performed By: #### 2 892822, 63587336, 0613572, 1432373, 5212581, 3616838 ####[facility] [address] [place] [address] Potassium [Moles/Vol] 3.7 mmol/L Normal 3.5-5.3 [facility] Comment on above: Performed By: #### 2 202082, 27894524, 5404558, 3477913, 4370108, 8688496 ####[facility] [address] [place] [address] Sodium [Moles/Vol] 135 mmol/L Normal 135-145 [facility] Comment on above: Performed By: #### 2 239446, 49651342, 1629053, 3134288, 1943059, 7100182 ####[facility] [address] [place] [address] XR Chest 2 Viewson 2 XR Chest [...] Transcribed by: JOSE MANUEL Technologist: YAMILKA Normal [facility] eGFRon 05-13-2022 GFR/1.73 sq M.predicted among blacks MDRD (S/P/Bld) [Vol rate/Area] mL/min/{1.73_m2} Normal >=59 [facility] Comment on above: Order Comment: Order added by Discern Expert. Result Comment: eGFR is race adjusted. AA=. Performed By: #### 2 524194, 99301511, 6872481, 6618431, 7299809, 2040818 ####[facility] [address] [place] [address] GFR/1.73 sq M.predicted among non-blacks MDRD (S/P/Bld) [Vol rate/Area] mL/min/{1.73_m2} Normal >=59 [facility] Comment on above: Order Comment: Order added by Discern Expert. Result Comment: Workers Compensation Attorney el kidney disease could be indicated at eGFR's of less than 60 mL/min/1.73m2. Kidney failure is indicated at less than 15 mL/min/1.73m2. Performed By: #### 2 503081, 47286961, 8585082, 8435828, 5138931, 2415920 ####[facility] [address] [place] [address] COVID-19 ([facility])on 05-12-2022 ADMITTED TO INTENSIVE CARE UNIT FOR CONDITION OF INTEREST:FIND:PT: Unknown Normal [facility] Comment on above: Performed By: #### 2 [id number] #### [facility] [address] [id number] EMPLOYED IN A HEALTHCARE SETTING:FIND:PT: Unknown Normal [facility] Comment on above: Performed By: #### 2 [id number] #### [facility] [address] [id number] FIRST TEST FOR CONDITION OF INTEREST:FIND:PT: Unknown Normal [facility] Comment on above: Performed By: #### 2 [id number] #### [facility] [address] [place] [address] HAS SYMPTOMS RELATED TO CONDITION OF INTEREST:FIND:PT: Unknown Normal [facility] Comment on above: Performed By: #### 2 [id number] #### [facility] [address] [place] [address] HOSPITALIZED FOR CONDITION OF INTEREST:FIND:PT: Unknown Normal [facility] Comment on above: Performed By: #### 2 [id number] #### [facility] [address] [place] [address] STATUS:FIND:PT: NO Normal [facility] Comment on above: Performed By: #### 2 [id number] #### [facility] [address] [place] [address] RESIDES IN A [facility] CARE SETTING:FIND:PT: Unknown Normal [facility] Comment on above: Performed By: #### 2 [id number] #### [facility] [address] [place] [address] Pre-Certification Formon Pre-Certification Form [id number]#1.00C D:127 Normal [facility] Consent for Procedure/Surger yon 05-10-2022 Consent for Procedure/Surgery [id number]#1.00 CD:127 Normal [facility] Outside Recordson 05-04-2022 Outside Records [id number]#1.00 CD:127 Normal [facility] CALCULI, URINARYon 2 2,8 Dihydroxyadenine Normal [facility] Comment on above: Performed By: #### P OCGLUC #### [facility] [address] [address] [address] Yash Mckeon Ammonium Acid Urate Normal [facility] Comment on above: Performed By: #### P OCGLUC #### [facility] [address] [address] [address] Yash Mckeon Bilirubin Ql (U) Normal [facility] Comment on above: Performed By: #### P OCGLUC #### [facility] [address] [address] [address] Yash Mckeon Ca Oxalate Dihydrate Normal [facility] Comment on above: Performed By: #### P OCGLUC #### [facility] [address] [address] [address] Yash Mckeon CaHPO4 (Brushite) [facility] Comment on above: Performed By: #### P OCGLUC #### [facility] [address] [address] [address] Yash Mckeon Calcium Bilirubinate [facility] Comment on above: Performed By: #### P OCGLUC #### [facility] [address] [address] [address] Yash Mckeon Calcium Carbonate Normal [facility] Comment on above: Performed By: #### P OCGLUC #### [facility] [address] [address] [address] Yash Mckeon Calcium Oxalate Monohydrate Normal [facility] Comment on above: Performed By: #### P OCGLUC #### [facility] [address] [address] [address] Yash Mckeon Calcium Palmitate Normal [facility] Comment on above: Performed By: #### P OCGLUC #### [facility] [address] [address] [address] Yash Mckeon Calcium Phosphate Normal [facility] Comment on above: Performed By: #### P OCGLUC #### [facility] [address] [address] [address] Yash Mckeon Calcium Stearate [place] [facility] Comment on above: Performed By: #### P OCGLUC #### [facility] [address] [address] [address] Yash Mckeon Carbonate Apatite Normal [facility] Comment on above: Performed By: #### P OCGLUC #### [facility] [address] [address] [address] Yash Mckeon Cellular Material [facility] Comment on above: Performed By: #### P OCGLUC #### [facility] [address] [address] [address] Yash Mckeon Cholesterol [facility] Comment on above: Performed By: #### P OCGLUC #### [facility] [address] [address] [address] Yash Mckeon Color (U) Phipps Normal [facility] Comment on above: Performed By: #### P OCGLUC #### [facility] [address] [address] [address] Yash Mckeon Comment Comment [facility] Comment on above: Result Comment: Lolly talline substances normally associated with human calculi were not identified. Specimen is consistent with organic material. Insufficient sample to perform additional, confirmatory, or reference testing. Performed By: #### P OCGLUC #### [facility] [address] [address] [address] Yash Mckeon Comment [facility] Comment on above: Performed By: #### P OCGLUC #### [facility] [address] [address] [address] Yash Mckeon Comment: Comment Normal [facility] Comment on above: Result Comment: Phys alixan questions regarding Calculi Analysis contact [facility] at: [phone]. Performed By: #### P OCGLUC #### [facility] [address] [address] [address] Yash Mckeon Composition Comment [facility] Comment on above: Result Comment: Plea se see comment Performed By: #### P OCGLUC #### [facility] [address] [address] [address] Yash Mckeon Cystine [facility] Comment on above: Performed By: #### P OCGLUC #### [facility] [address] [address] [address] Yash Mckeon Disclaimer: Comment Normal [facility] Comment on above: Result Comment: This test was developed and its performance characteristics determined by [facility]. It has not been cleared or approved by the Food and Drug Administration. Performed By: #### P OCGLUC #### [facility] [address] [address] [address] Yash Mckeon Dried Blood [facility] Comment on above: Performed By: #### P OCGLUC #### [facility] [address] [place] [address] Dr. Yash Mckeon Drug or Metabolite Normal [facility] Comment on above: Performed By: #### P OCGLUC #### [facility] [address] [place] [address] Dr. Yash Mckeon Hydroxyapatite [facility] Comment on above: Performed By: #### P OCGLUC #### [facility] [address] [place] [address] Dr. Yash Mckeon Mg NH4 PO4 (Struvite) [facility] Comment on above: Performed By: #### P OCGLUC #### [facility] [address] [place] [address] Dr. Yash Mckeon MgHPO4 (Newberyite) [facility] Comment on above: Performed By: #### P OCGLUC #### [facility] [address] [place] [address] Dr. Yash Mckeon Other component(s) Normal [facility] Comment on above: Performed By: #### P OCGLUC #### [facility] [address] [place] [address] Dr. Yash Mckeon PDF . Normal [facility] Comment on above: Performed By: #### P OCGLUC #### [facility] [address] [place] [address] Dr. Yash Mckeon Photo TNP [facility] Comment on above: Result Comment: Test not performed No photo available Performed By: #### P OCGLUC #### [facility] [address] [place] [address] Dr. Yash Mckeon Please note: Comment [facility] Comment on above: Result Comment: Calc terry report will follow via computer, mail or aquatic laborer delivery. Performed By: #### P OCGLUC #### [facility] [address] [address] [address] Yash Mckeon Size <1 [facility] Comment on above: Result Comment: Too small to measure. Performed By: #### P OCGLUC #### [facility] [address] [address] [address] Yash Mckeon Sodium Acid Urate [facility] Comment on above: Performed By: #### P OCGLUC #### [facility] [address] [address] [address] Yash Mckeon Source Comment [facility] Comment on above: Result Comment: Not provided Performed By: #### P OCGLUC #### [facility] [address] [address] [address] Yash Mckeon Triamterene [facility] Comment on above: Performed By: #### P OCGLUC #### [facility] [address] [address] [address] Yash Mckeon Uric Acid [facility] Comment on above: Performed By: #### P OCGLUC #### [facility] [address] [address] [address] Yash Mckeon Uric Acid Dihydrate [facility] Comment on above: Performed By: #### P OCGLUC #### [facility] [address] [address] [address] Yash Mckeon Weight <1 [facility] Comment on above: Result Comment: Too small to weigh Performed By: #### P OCGLUC #### [facility] [address] [address] [address] Yash Mckeon Xanthine [facility] Comment on above: Performed By: #### P OCGLUC #### [facility] [address] [address] [address] Yash Mckeon Consent for Procedure/Surger yon 04-27-2022 Consent for Procedure/Surgery [id number]#[id number] D:127 Normal [facility] Provider Letter FTon 04-27 Provider Letter [facility] (Inserted Image. Un able to display) April 27, 2022 [address] [place] [address] BRIAN TSE 1980 To Whom It May Concern, The above named person has a 10 pound weight restriction from 04/27/22-05/19/22. Sincerely, Dr. Nicky Christina MD General Surgery [facility] CBC AUTO DIFFon 04-04-2022 BASO # 0.1 103/ul Normal 0.0-0.1 [facility] Comment on above: Performed By: #### C BC #### [facility] [address] [address] [address] Yash Mckeon Basophils/100 WBC (Bld) 0.9 % Normal 0.2-2.0 [facility] Comment on above: Performed By: #### C BC #### [facility] [address] [address] [address] Yash Mckeon EO # 0.4 103/ul Normal 0.0-0.7 [facility] Comment on above: Performed By: #### C BC #### [facility] [address] [address] [address] Yash Mckeon Eosinophils/100 WBC (Bld) 3.3 % Normal 0.9-7.0 [facility] Comment on above: Performed By: #### C BC #### [facility] [address] [address] [address] Yash Mckeon Erythrocyte distribution width (RBC) [Ratio] 13.8 % Normal 11.0-15.0 [facility] Comment on above: Performed By: #### C BC #### [facility] [address] [address] [address] Yash Mckeon Hematocrit (Bld) [Volume fraction] 48.7 % Normal 42.0-54.0 [facility] Comment on above: Performed By: #### C BC #### [facility] [address] [address] [address] Yash Mckeon Hemoglobin (Bld) [Mass/Vol] 16.1 g/dL Normal 14.0-18.0 [facility] Comment on above: Performed By: #### C BC #### [facility] [address] [address] [address] Yash Mckeon IG # 0.06 10e3/ul Critically high 0.00-0.03 [facility] Comment on above: Performed By: #### C BC #### [facility] [address] [address] [address] Yash Mckeon IG % 0.5 % Normal 0.0-0.5 [facility] Comment on above: Performed By: #### C BC #### [facility] [address] [address] [address] Yash Mckeon LYMPH # 4.1 103/ul Critically high 1.2-3.8 [facility] Comment on above: Performed By: #### C BC #### [facility] [address] [place] [address] Dr. Yash Mckeon Lymphocytes/100 WBC (Bld) 33.3 % Normal 20.5-60.0 [facility] Comment on above: Performed By: #### C BC #### [facility] [address] [place] [address] Dr. Yash Mckeon MANUAL DIFF REQ NO Normal [facility] Comment on above: Performed By: #### C BC #### [facility] [address] [place] [address] Dr. Yash Mckeon MCH (RBC) [Entitic mass] 29.0 pg Normal 25.9-34.0 [facility] Comment on above: Performed By: #### C BC #### [facility] [address] [place] [address] Dr. Yash Mckeon MCHC (RBC) [Mass/Vol] 33.1 g/dL Normal 29.9-35.2 [facility] Comment on above: Performed By: #### C BC #### [facility] [address] [place] [address] Dr. Yash Mckeon MCV (RBC) [Entitic vol] 87.6 fL Normal 80.0-94.0 [facility] Comment on above: Performed By: #### C BC #### [facility] [address] [address] [address] Yash Mckeon MONO # 1.0 103/ul Critically high 0.3-0.8 [facility] Comment on above: Performed By: #### C BC #### [facility] [address] [address] [address] Yash Mckeon Monocytes/100 WBC (Bld) 8.2 % Normal 1.7-12.0 [facility] Comment on above: Performed By: #### C BC #### [facility] [address] [place] [address] Dr. Yash Mckeon NEUT # 6.6 103/ul Critically high 1.4-6.5 [facility] Comment on above: Performed By: #### C BC #### [facility] [address] [place] [address] Dr. Yash Mckeon Neutrophils/100 WBC (Bld) 53.8 % Normal 43.0-75.0 [facility] Comment on above: Performed By: #### C BC #### [facility] [address] [place] [address] Dr. Yash Mckeon Platelet mean volume (Bld) [Entitic vol] 10.5 fL Normal 9.5-13.5 [facility] Comment on above: Performed By: #### C BC #### [facility] [address] [place] [address] Dr. Yash Mckeon PLT 260 103/ul Normal 150-450 [facility] Comment on above: Performed By: #### C BC #### [facility] [address] [place] [address] Dr. Yash Mckeon RBC 5.56 106/ul Normal 4.70-6.10 [facility] Comment on above: Performed By: #### C BC #### [facility] [address] [place] [address] Dr. Yash Mckeon WBC 12.2 103/ul Critically high 4.0-11.0 [facility] Comment on above: Performed By: #### C BC #### [facility] [address] [address] [address] ABD/PELVIS WO CONon 04-04 CT ABD/PELVIS WO CON EXAMINATION: CT ABD/PELVIS WO CON HISTORY: CALCULUS OF KIDNEY ; [...] JUANITA DYKES Date: 2022-04-04 08:43 Normal [facility] CULTURE URINEon 04-04-2022 CULTURE URINE Culture Observations : LIGHT GROWTH OF MIXED SKIN BRIANNA. NO POTENTIAL PATHOGENS SEEN. Normal [facility] Comment on above: Performed By: #### P OCGLUC #### [facility] [address] [address] [address] Yash Mckeon ER URINE PROFILEon 2 Bilirubin Ql (U) Negative Normal NEGATIVE [facility] Comment on above: Performed By: #### Vincenzo KELLEY UMICRO #### [facility] [address] [address] [address] Yash Mckeon Clarity (U) SL CLOUDY Abnormal CLEAR [facility] Comment on above: Performed By: #### E RUR, UMICRO #### [facility] [address] [address] [address] Yash Mckeon Color (U) BROWN Abnormal YELLOW [facility] Comment on above: Performed By: #### E ALLIE UMICRO #### [facility] [address] [place] [address] Dr. Yash DUBOSE A micrscopic examination will be performed if indicated. Normal [facility] Comment on above: Performed By: #### Vincenzo KELLEY UMICRO #### [facility] [address] [place] [address] Dr. Yash Mckeon Glucose Ql (U) 100 mg/dl Abnormal NEGATIVE [facility] Comment on above: Performed By: #### Vincenzo KELLEY UMICRO #### [facility] [address] [place] [address] Dr. Yash Mckeon Hemoglobin Ql (U) LARGE Abnormal NEGATIVE [facility] Comment on above: Performed By: #### Vincenzo KELLEY UMICRO #### [facility] [address] [address] [address] Yash Mckeon Ketones Ql (U) TRACE Abnormal NEGATIVE [facility] Comment on above: Performed By: #### Vincenzo KELLEY UMICRO #### [facility] [address] [address] [address] Yash Mckeon LEUKOCYTES Negative Normal NEGATIVE [facility] Comment on above: Performed By: #### Vincenzo KELLEY UMICRO #### [facility] [address] [address] [address] Yash Mckeon Nitrite Ql (U) Positive Abnormal NEGATIVE [facility] Comment on above: Performed By: #### Vincenzo PATRICIAR UMICRO #### [facility] [address] [place] [address] Dr. Yash Mckeon pH (U) 5.0 [pH] Normal 5-9 [facility] Comment on above: Performed By: #### KALEIGH STEPHENS #### [facility] [address] [place] [address] Dr. Yash Mckeon Protein (U) [Mass/Vol] 100 mg/dL Abnormal NEGATIVE/ TRACE [facility] Comment on above: Performed By: #### KALEIGH STEPHENS #### [facility] [address] [place] [address] Dr. Yash Mckeon SPEC GRAVITY >=1.030 Abnormal 1.005-<=1.025 [facility] Comment on above: Performed By: #### KALEIGH STEPHENS #### [facility] [address] [place] [address] Dr. Yash Mckeon UR MICRO IND INDICATED Normal [facility] Comment on above: Performed By: #### KALEIGH STEPHENS #### [facility] [address] [place] [address] Dr. Yash Mckeon Urobilinogen Qn (U) 1.0 {Nathaniel'U}/dL Normal 0.2 - 1. 0 [facility] Comment on above: Performed By: #### KALEIGH STEPHENS #### [facility] [address] [place] [address] Dr. Yash Mckeon PROF CHEM 8 (BAS METB)on Anion gap [Moles/Vol] 16.0 mmol/L Normal [facility] Comment on above: Performed By: #### B MP #### [facility] [address] [place] [address] Dr. Yash Mckeon Calcium [Mass/Vol] 8.5 mg/dL Normal 8.5-10.1 [facility] Comment on above: Performed By: #### B MP #### [facility] [address] [place] [address] Dr. Yash Mckeon Chloride [Moles/Vol] 102 mmol/L Normal 98-107 [facility] Comment on above: Performed By: #### B MP #### [facility] [address] [address] [address] Yash Mckeon CO2 [Moles/Vol] 23.6 mmol/L Normal 21.0-32.0 [facility] Comment on above: Performed By: #### B MP #### [facility] [address] [address] [address] Yash Mckeon Creatinine [Mass/Vol] 1.17 mg/dL Normal 0.70-1.30 [facility] Comment on above: Performed By: #### B MP #### [facility] [address] [address] [address] Yash Mckeon EGFR-AF SOUTH KOREAN >60 Normal >=60 [facility] Comment on above: Performed By: #### B MP #### [facility] [address] [address] [address] Yash Mckeon EGFR-NON AF SOUTH [place]OREAN >60 Normal >=60 [facility] Comment on above: Performed By: #### B MP #### [facility] [address] [address] [address] Yash Mckeon Glucose [Mass/Vol] 234 mg/dL Critically high 74-106 [facility] Comment on above: Performed By: #### B MP #### [facility] [address] [address] [address] Yash Mckeon Potassium [Moles/Vol] 3.6 mmol/L Normal 3.5-5.1 [facility] Comment on above: Performed By: #### B MP #### [facility] [address] [address] [address] Yash Mckeon Sodium [Moles/Vol] 138 mmol/L Normal 136-145 [facility] Comment on above: Performed By: #### B MP #### [facility] [address] [address] [address] Yash Mckeon Urea nitrogen [Mass/Vol] 8.0 mg/dL Normal 7.0-18.0 [facility] Comment on above: Performed By: #### B MP #### [facility] [address] [place] [address] Dr. Yash Mckeon Urea nitrogen/Creatinine [Mass ratio] 6.8 mg/mg Normal [facility] Comment on above: Performed By: #### B MP #### [facility] [address] [place] [address] Dr. Yash Mckeon URINE MICROSCOPIC ONLYon BACTERIA TRACE Abnormal NONE SEEN [facility] Comment on above: Performed By: #### E RUR, UMICRO #### [facility] [address] [place] [address] Dr. Yash Mckeon Bacteria identified Cx Nom (U) INDICATED Normal [facility] Comment on above: Performed By: #### E RUR UMICRO #### [facility] [address] [place] [address] Dr. Yash Mckeon CAST NONE SEEN Normal NONE SEEN [facility] Comment on above: Performed By: #### E ALLIE UMICRO #### [facility] [address] [place] [address] Dr. Yash Mckeon Crystals LM Nom (Urine sed) NONE SEEN Normal NONE SEEN [facility] Comment on above: Performed By: #### E ALLIE UMICRO #### [facility] [address] [place] [address] Dr. Yash Mckeon Epithelial cells LM Ql (Urine sed) RARE Normal NONE SEEN /RARE [facility] Comment on above: Performed By: #### E RUR UMICRO #### [facility] [address] [place] [address] Dr. Yash Mckeon MUCOUS NONE SEEN Normal NONE SEEN [facility] Comment on above: Performed By: #### E RUR, UMICRO #### [facility] [address] [place] [address] Dr. Yash Mckeon RBC 20-50 Abnormal 0-2 [facility] Comment on above: Performed By: #### E RUR, UMICRO #### [facility] [address] [place] [address] Dr. Yash Mckeon WBC 0-2 Abnormal NONE SEEN [facility] Comment on above: Performed By: #### E RUR, UMASADYASMINE #### [facility] [address] [address] [address] Yash Mckeon CBC AUTO DIFFon 02-17-2022 BASO # 0.1 103/ul Normal 0.0-0.1 [facility] Comment on above: Performed By: #### C BC #### [facility] [address] [address] [address] Yash Mckeon Basophils/100 WBC (Bld) 0.7 % Normal 0.2-2.0 [facility] Comment on above: Performed By: #### C BC #### [facility] [address] [address] [address] Yash Mckeon EO # 0.2 103/ul Normal 0.0-0.7 [facility] Comment on above: Performed By: #### C BC #### [facility] [address] [address] [address] Yash Mckeon Eosinophils/100 WBC (Bld) 1.6 % Normal 0.9-7.0 [facility] Comment on above: Performed By: #### C BC #### [facility] [address] [address] [address] Yash Mckeon Erythrocyte distribution width (RBC) [Ratio] 14.3 % Normal 11.0-15.0 [facility] Comment on above: Performed By: #### C BC #### [facility] [address] [address] [address] Yash Mckeon Hematocrit (Bld) [Volume fraction] 47.1 % Normal 42.0-54.0 [facility] Comment on above: Performed By: #### C BC #### [facility] [address] [address] [address] Yash Mckeon Hemoglobin (Bld) [Mass/Vol] 15.7 g/dL Normal 14.0-18.0 [facility] Comment on above: Performed By: #### C BC #### [facility] [address] [address] [address] Yash Mckeon IG # 0.05 10e3/ul Critically high 0.00-0.03 [facility] Comment on above: Performed By: #### C BC #### [facility] [address] [place] [address] Dr. Yash Mckeon IG % 0.5 % Normal 0.0-0.5 [facility] Comment on above: Performed By: #### C BC #### [facility] [address] [place] [address] Dr. Yash Mckeon LYMPH # 2.9 103/ul Normal 1.2-3.8 [facility] Comment on above: Performed By: #### C BC #### [facility] [address] [place] [address] Dr. Yash Mckeon Lymphocytes/100 WBC (Bld) 29.8 % Normal 20.5-60.0 [facility] Comment on above: Performed By: #### C BC #### [facility] [address] [place] [address] Dr. Yash Mckeon MANUAL DIFF REQ NO Normal [facility] Comment on above: Performed By: #### C BC #### [facility] [address] [place] [address] Dr. Yash Mckeon MCH (RBC) [Entitic mass] 29.2 pg Normal 25.9-34.0 [facility] Comment on above: Performed By: #### C BC #### [facility] [address] [place] [address] Dr. Yash Mckeon MCHC (RBC) [Mass/Vol] 33.3 g/dL Normal 29.9-35.2 [facility] Comment on above: Performed By: #### C BC #### [facility] [address] [place] [address] Dr. Yash Mckeon MCV (RBC) [Entitic vol] 87.7 fL Normal 80.0-94.0 [facility] Comment on above: Performed By: #### C BC #### [facility] [address] [place] [address] Dr. Yash Mckeon MONO # 0.7 103/ul Normal 0.3-0.8 [facility] Comment on above: Performed By: #### C BC #### [facility] [address] [place] [address] Dr. Yash Mckeon Monocytes/100 WBC (Bld) 6.8 % Normal 1.7-12.0 [facility] Comment on above: Performed By: #### C BC #### [facility] [address] [place] [address] Dr. Yash Mckeon NEUT # 5.9 103/ul Normal 1.4-6.5 [facility] Comment on above: Performed By: #### C BC #### [facility] [address] [place] [address] Dr. Yash Mckeon Neutrophils/100 WBC (Bld) 60.6 % Normal 43.0-75.0 [facility] Comment on above: Performed By: #### C BC #### [facility] [address] [place] [address] Dr. Yash Mckeon Platelet mean volume (Bld) [Entitic vol] 10.3 fL Normal 9.5-13.5 [facility] Comment on above: Performed By: #### C BC #### [facility] [address] [place] [address] Dr. Yash Mckeon PLT 240 103/ul Normal 150-450 [facility] Comment on above: Performed By: #### C BC #### [facility] [address] [place] [address] Dr. Yash Mckeon RBC 5.37 106/ul Normal 4.70-6.10 [facility] Comment on above: Performed By: #### C BC #### [facility] [address] [place] [address] Dr. Yash Mckeon WBC 9.8 103/ul Normal 4.0-11.0 [facility] Comment on above: Performed By: #### C BC #### [facility] [address] [place] [address] Dr. Yash Mckeon [facility]23 SARS-CoV-2 (COVID-19) RNA TALIB+probe Ql (Unsp spec) Not detected Normal NOT DETECTED [facility] Comment on above: Result Comment: When diagnostic [...] for this test is supported by the Hose Tester of Health and Human Service's declaration that [...] used). Performed By: #### C VDTBH #### [facility] [address] [place] [address] Dr. Yash Mckeon D-DIMERon 02-17-2022 D-DIMER <0.19 Normal <=0.59 [facility] Comment on above: Performed By: #### D DIM #### [facility] [address] [address] [address] Yash Mckeon D-DIMER COMMENTS SEE BELOW Normal [facility] Comment on above: Result Comment: Incr eases [...] hospitalization. Performed By: #### D DIM #### [facility] [address] [address] [address] Yash Mckeon PROF CHEM 8 (BAS METB)on Anion gap [Moles/Vol] 13.0 mmol/L Normal [facility] Comment on above: Performed By: #### P OCGLUC #### [facility] [address] [address] [address] Yash Mckeon Calcium [Mass/Vol] 9.2 mg/dL Normal 8.5-10.1 [facility] Comment on above: Performed By: #### P OCGLUC #### [facility] [address] [address] [address] Yash Mckeon Chloride [Moles/Vol] 102 mmol/L Normal 98-107 [facility] Comment on above: Performed By: #### P OCGLUC #### [facility] [address] [address] [address] Yash Mckeon CO2 [Moles/Vol] 28.2 mmol/L Normal 21.0-32.0 [facility] Comment on above: Performed By: #### P OCGLUC #### [facility] [address] [address] [address] Yash Mckeon Creatinine [Mass/Vol] 1.10 mg/dL Normal 0.70-1.30 [facility] Comment on above: Performed By: #### P OCGLUC #### [facility] [address] [address] [address] Yash Mckeon EGFR-AF SOUTH KOREAN >60 Normal >=60 [facility] Comment on above: Performed By: #### P OCGLUC #### [facility] [address] [address] [address] Yash Mckeon EGFR-NON AF [place]ORE[place] >60 Normal >=60 [facility] Comment on above: Performed By: #### P OCGLUC #### [facility] [address] [address] [address] Yash Mckeon Glucose [Mass/Vol] 174 mg/dL Critically high 74-106 [facility] Comment on above: Performed By: #### P OCGLUC #### [facility] [address] [address] [address] Yash Mckeon Potassium [Moles/Vol] 4.2 mmol/L Normal 3.5-5.1 [facility] Comment on above: Performed By: #### P OCGLUC #### [facility] [address] [address] [address] Yash Mckeon Sodium [Moles/Vol] 139 mmol/L Normal 136-145 [facility] Comment on above: Performed By: #### P OCGLUC #### [facility] [address] [address] [address] Yash Mckeon Urea nitrogen [Mass/Vol] 12.0 mg/dL Normal 7.0-18.0 [facility] Comment on above: Performed By: #### P OCGLUC #### [facility] [address] [address] [address] Yash Mckeon Urea nitrogen/Creatinine [Mass ratio] 10.9 mg/mg Normal [facility] Comment on above: Performed By: #### P OCGLUC #### [facility] [address] [address] [address] Yash Mckeon TROPONIN, HIGH SENSITIVITYon 02-17-2022 HSTROP <4.0 Normal 4.0-76.1 [facility] Comment on above: Result Comment: CUT- OFF POINTS HAVE BEEN ESTABLISHED BASED ON THE FOURTH UNIVERSAL DEFINITIONS OF MYOCARDIAL INFARCTION. THE UPPER REFERENCE LIMIT (URL) OF TROPONIN, DEFINED THE 99TH PERCENTILE OF cTnI DISTRIBUTION IN A REFERENCE POPULATION, HAS BEEN CONFIRMED THE DECISION THRESHOLD FOR IA DIAGNOSIS. Performed By: #### P OCGLUC #### [facility] [address] [place] [address] Dr. Yash Mckeon XR RIBS RT PA [...] by: JUANITA DYKES Date: 2022-02-17 15:26 Normal [facility] BASIC METABOLIC PANELon 08-25 Anion gap [Moles/Vol] 17 mmol/L Normal 10 - 20 [facility] Comment on above: Performed By: #### B MP #### [address] [address] Calcium [Mass/Vol] 8.7 mg/dL Normal 8.6 - 10.3 [facility] Comment on above: Performed By: #### B MP #### [address] [address] Chloride [Moles/Vol] 103 mmol/L Normal 98 - 107 [facility] Comment on above: Performed By: #### B MP #### [address] [address] Creatinine [Mass/Vol] 0.88 mg/dL Normal 0.50 - 1.30 [facility] Comment on above: Performed By: #### B MP #### [address] [address] GFR- AM. >60 Normal >60 [facility] Comment on above: Result Comment: CALC ULATIONS OF ESTIMATED GFR ARE PERFORMED USING THE MDRD STUDY EQUATION FOR THE IDMS-TRACEABLE CREATININE METHODS. CLIN CHEM 2007;53:766-72 Performed By: #### B MP #### [address] [address] GFR-NON AM. >60 Normal >60 [facility] Comment on above: Performed By: #### B MP #### [address] [address] Glucose [Mass/Vol] 252 mg/dL High 74 - 99 [facility] Comment on above: Performed By: #### B MP #### [address] [place] [address] HCO3 (Bld) [Moles/Vol] 19 mmol/L Low 21 - 32 [facility] Comment on above: Performed By: #### B MP #### [address] [place] [address] Potassium [Moles/Vol] 4.1 mmol/L Normal 3.5 - 5.3 [facility] Comment on above: Performed By: #### B MP #### [address] [place] [address] Sodium [Moles/Vol] 135 mmol/L Low 136 - 145 [facility] Comment on above: Performed By: #### B MP #### [facility] [address] [place] [address] Urea nitrogen [Mass/Vol] 13 mg/dL Normal 6 - 23 [facility] Comment on above: Performed By: #### B MP #### [facility] [address] [place] [address] GLUCOSE-POCTon 09-05-2020 Glucose [Mass/Vol] 276 mg/dL High 74 - 99 [facility] Comment on above: Performed By: #### G LATA #### [facility] [address] [place] [address] History and Physical - Surgi kellie Update [...] StatementObservation patient/other outpatient visits Electronic Signatures: Nicky Garay) (Signed 05-Sep-2020 11:26) Authored: History & Physical Reviewed, ERAS, Consent, Note Completion Last Updated: 05-Sep-2020 11:26 by Nicky Garay) Normal [facility] Operative Reports - [place] 09-05-2020 Operative Reports - [place] PREOPERATIVE INDICATION: Phimosis. PREOPERATIVE DIAGNOSIS: Phimosis. POSTOPERATIVE [...] instructions to the patient. SPECIMEN: Foreskin. NICKY GARAY MD EST EST DICTATION NUMBER: [id number] INTERNAL JOB NUMBER: [id number] Electronic Signatures: Nicky Garay () (Signed on 15-Sep-2020 07:34) Authored Unsigned, Draft (SYS GENERATED) (Entered on 06-Sep-2020 07:26) Entered Last Updated: 15-Sep-2020 07:34 by Nicky Garay) Normal [facility] Order Reconciliationon 09-05 Order Reconciliation Page 1 [...] Discharge Diagnosis< N47.1 Phimosis Discharge Provider, Nicky Garay Discharge Disposition : .Home Condition at Discharge: [...] be shared with your follow-up providers (doctor, southeast regional sales manager, physical therapist, etc.). Follow Up with in [...] Discharge Diagnosis< N47.1 Phimosis Discharge Provider, Nicky Garay Discharge Disposition : .Home Condition at Discharge: [...] be shared with your follow-up providers (doctor, southeast regional sales manager, physical therapist, etc.). Follow Up with in [...] but has not started this yet Normal [facility] 09-[facility]-2020 [facility] Name BRIAN TSESandra Pathologist: CHRIS MACEDO MD Date of Procedure: 09/05/2020 Date Received: 09/05/2020 Date Reported 09/09/2020 Submitting Physician: NICKY GARAY MD Location: Other External # FINAL DIAGNOSIS A. FORESKIN: -- SKIN WITH PARAKERATOSIS AND CHRONIC INFLAMMATION Electronically Signed Out By CHRIS MACEDO MD/[place] By the signature on this report, the individual or group listed as making the Final Interpretation/Diagnosi s certifies that they have reviewed this case. Clinical History: Phimosis Specimens Submitted As: A: FORESKIN Gross Description: Received in formalin, labeled with the patient?s name and hospital number and foreskin , are 2 irregular fragments of wrinkled brown skin measuring 4.5 x 2.5 x 1 cm and 2.5 x 0.5 x 0.5 cm respectively. Multimedia Specialist sections are submitted in 1 cassette. TNB tnb/09/05/2020 [facility] Department of Pathology [address] [place] [address] Normal [facility] Comment on above: Performed By: #### P #### [facility] [address] [address] [facility] [address] Preop Checkliston 09-05-2020 Preop Checklist Preop Checklist: Preop Checklist: Arrival [id number] Arrival Time09:42 Procedure TypeCIRCUMCISION Temperature C36.2 degrees C Temperature F97.1 degrees F Heart Rate70 beats per minute Respiratory Rate18 breath per minute Blood Pressure Trgaeotl408 mm/Hg Blood Pressure Vetrivdwy08 mm/Hg ID Band Onyes Allergy Bandno known [...] 05-Sep-2020 09:48 by Zainab Laguna (SUKHJINDER) Normal [facility] URINE CULTURE,BACTERIALon URINE CULTURE,BACTERIAL PATIENT: BRIAN TSE LOCATION: [facility] BILL#: [id number] : 82 AGE: SEX: M ORDERED BY: NICKY GARAY SOURCE: URINE COLLECTED: 09/05/20 08:16 ANTIBIOTICS AT REINA.: RECEIVED : 09/05/20 11:32 SITE: R E S U L T S URINE CULTURE,BACTERIAL FINAL 09/06/20 07:51 NO SIGNIFICANT GROWTH. Normal [facility] Comment on above: Performed By: #### U [facility] #### [facility] [address] [place] [address] CORONAVIRUS 2019, SCREEN ASY MPTOMATICon 09-03-2020 CORONAVIRUS 2019,PCR NOT DETECTED Normal Not Detected [facility] Comment on above: Result Comment: . This [...] patient management decisions. Fact sheet for providers: https://www.fda.gov/media/395996/download Fact sheet for patients: https://www.fda.gov/media/786376/download This test has received FDA Emergency Use Authorization (EUA) and has been verified by [facility] ([facility]). This test is only authorized for the duration of time that circumstances exist to justify the authorization of the emergency use of in vitro diagnostic tests for the detection of SARS-CoV-2 virus and/or diagnosis of COVID-19 infection under section 564(b)(1) of the Act, 21 U.S.C. 360bbb-3(b)(1), unless the authorization is terminated or revoked sooner. [facility] is certified under CLIA-88 as qualified to perform high complexity testing. Testing is performed in the [facility] laboratories located at [id number] [place] [address]. Performed By: #### C OVSC #### [facility] [address] [facility] [place] [address] Lab Specimen Source Nasal, Nasopharyngeal Normal [facility] Comment on above: Performed By: #### C OVSC #### [facility] [address] [place] [address] Covid 19 Resultson 1 Covid 19 Results [...] You may also be contacted by the [facility] to see if any of [...] or Naproxen (Aleve) can also be used. Rtgy-fsd-fpqptby cough and cold medicines can be used according to the instructions on the package. Some rxzn-gat-bfrpbol medicines also contain acetaminophen. Make sure you [...] water are not available, use alcohol-based hand acting professor. Avoid touching your eyes, nose, and mouth [...] a total of 10 days. Additional resources: [facility] COVID Hotline at 2-822-6DZZFLJ ( ). COVID-19 Careline at (availabl e 24 hours per day, seven days a week if you or a loved one is experiencing anxiety related to the coronavirus pandemic). Clinical research opportunities: is conducting research studies to develop better testing and treatments for COVID. Do you want any information on how to participate Call [phone]. Websites: hospitals.org or www.CDC.gov Follow My Health / My [facility] (for other test results): Revised 06/10/2020 Electronic Signatures: [employer] (ADMIN) (Signature pending) Authored Last Updated: 03-Sep-2020 21:24 by [employer] (ADMIN) Normal [facility] CNOVon 10-14-2017 CNOV Office Visit (LOORRM) BRIAN PEÑA ([id number]) 1980 [facility] Time Provider Department10/14/17 11:00 AM NAHOMY SHARP (PA) During your visit today, we recorded the following information about you:Nahomy Sharp PA-C 10/14/2017 3:20 PM SignedPAST MEDICAL HISTORY: [...] current facility-administered medications on file prior to visit.ALLERGIES:ALLERGI ESAllergen Reactions- Chantix [Vareniclin* Other: See Comments Very [...] of painEndocrine: patient is a well controlled diabeticHematologic/Lym phatic: patient denies any easily bleeding, any recent infectionand denies any recent observable lymph node enlargementPsychologic: negative for any recent depression or anxiety issuesSOCIAL HISTORY:Tobacco Use: Not on fileFAMILY HISTORY:No family history on file.Referring Provider: SELF [200]Allergies As of Date: 10/14/2017 Noted Allergy ReactionCHANTIX (VARENICLINE) 10/14/2017 14 - Other: See Comments Comments: Very bad dreamsDate Reviewed: 10/14/2017Reviewed by: Nahomy Sharp (Pa) - Fully AssessedReason for Visit: right arm pain [Other]Primary Visit Diagnosis: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 with foodDisp: 60 tabletRfl: 1 CONSULT TO PHYSICAL THERAPY [1732] Order #: [id number]: 1Prescriptions as of 10/14/2017 Sig: ATORVASTATIN 10 [...] Historical Med Sig: Disc: Erroneous entryEncounter Number: [id number] Status:Closed by NAHOMY SHARP PA-C on 10/14/17 Normal [facility] PROGRESSon 10-14-2017 PROGRESS HNO ID: [id number]: Nahomy Valadez (Pa)e: (none)Author Type: Physician AssistantType: Progress NotesFiled: 10/14/2017 [...] current facility-administered medications on file prior to visit.ALLERGIES:ALLERGI ESAllergen Reactions- Chantix [Vareniclin* Other: See Comments Very [...] of painEndocrine: patient is a well controlled diabeticHematologic/Lym phatic: patient denies any easily bleeding, any recentinfection and denies any recent observable lymph node enlargementPsychologic: negative for any recent depression or anxiety issuesSOCIAL HISTORY:Tobacco Use: Not on fileFAMILY HISTORY:No family history on file. Normal [facility] PROGRESS HNO ID: [id number]: Nahomy Sharp (Pa)Service: Orthopaedic SurgeryAuthor Type: Physician AssistantType: Progress NotesFiled: 10/20/2017 3:42 PMNote Text: [facility] [address] [place], [place] [address] CLINIC NOTE Department of Orthopaedics - MAZIN Keita-CNAME: BRIAN TSE NO.: [id number] OF SERVICE: 10/14/2017CHIEF COMPLAINT: Right shoulder pain.HISTORY [...] doeshelp some temporarily. He was [facility] a [facility] hospitals[facility] and x-rays were obtained followed by an MRI. He is here todayfor further evaluation and discussion of treatment. He is jvou-dshojrp-ogibyaxpd diabetic who was under poor control several [...] lifting anything heavy. 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 They show some AC joint arthritis. Goodacromiohumeral distance. No significant glenohumeral arthritis. Noevidence of fracture. No other osseous abnormalities.MRI: MRI dated 10/01/2017 from [facility] shows a mildrotator cuff tendinosis, but no [...] for physical [facility], [facility] [place] [facility] 4-6 weeks. Will follow up in 6 weeks jagruti. Discussed possibly a cortisone injection at that time ifnecessary. Declines today as he does not like needles.Dictated By: Pepe Zurita Dictated: 10/19/2017Date Typed: [facility] 10/19/2017[facility]# [id number] Normal [facility] SR-MRI Shoulder w/o Contrast Right IMPORTon 10-01-2017 SR-MRI Shoulder w/o Contrast Right IMPORT Images were obtained outside of [facility] [id number] Normal [facility] SR-XR Shoulder Complete Righ t IMPORTon 09-13-2017 SR-XR Shoulder Complete Right IMPORT Images were obtained outside of [facility] [id number] Normal [facility] Vital Signs Date Time Vital Sign Value Performing Clinician Facility 01-06-2023 10:25-0400 Body height 177.8 cm Georgia Del Cid Other [facility] Other 01-06-2023 10:25-0400 Body mass index (BMI) [Ratio] 31.1 kg/m2 Georgia Del Cid Other [facility] Other 01-06-2023 10:25-0400 Body temperature 98.7 [degF] Georgia Del Cid Other [facility] Other 01-06-2023 10:25-0400 Body weight 98.34 kg Georgia Martinoley Other [facility] Other 01-06-2023 10:25-0400 Diastolic blood pressure 88 mm[Hg] Georgia Maria Eugenia Other [facility] Other 01-06-2023 10:25-0400 Respiratory rate 18 /min Georgia Maria Eugenia Other [facility] Other 01-06-2023 10:25-0400 SaO2% (BldA) [Mass fraction] 98 % Georgia Maria Eugenia Other [facility] Other 01-06-2023 10:25-0400 Systolic blood pressure 136 mm[Hg] Georgia Maria Eugenia Other [place] [facility] Other 05-20-2022 16:12-0400 Blood Pressure Location Nicky ManyWhoL [facility] 05-20-2022 16:12-0400 Body temperature 98.06 [degF] Nicky NILL [facility] 05-20-2022 16:12-0400 Diastolic blood pressure 74 mm[Hg] Nicky NILL [facility] 05-20-2022 16:12-0400 Heart rate 79 /min Nicky NILL [facility] 05-20-2022 16:12-0400 Mean blood pressure 85 mm[Hg] Nicky NILL [facility] 05-20-2022 16:12-0400 Respiratory rate 16 /min Nicky NILL [facility] 05-20-2022 16:12-0400 SaO2% (BldA) [Mass fraction] 96 % Nicky NILL [facility] 05-20-2022 16:12-0400 Systolic blood pressure 106 mm[Hg] Nicky NILL [facility] 05-20-2022 14:41-0400 Blood Pressure Location Nicky NILL [facility] 05-20-2022 14:41-0400 Body temperature 98.06 [degF] Nicky NILL [facility] 05-20-2022 14:41-0400 Diastolic blood pressure 83 mm[Hg] Nicky NILL [facility] 05-20-2022 14:41-0400 Heart rate 70 /min Nicky NILL [facility] 05-20-2022 14:41-0400 Respiratory rate 16 /min Nicky NILL [facility] 05-20-2022 14:41-0400 SaO2% (BldA) [Mass fraction] 99 % Nicky NILL [facility] 05-20-2022 14:41-0400 Systolic blood pressure 135 mm[Hg] Nicky NILL [facility] 05-20-2022 14:38-0400 Body temperature 97.52 [degF] Nicky NILL [facility] 05-20-2022 14:38-0400 Diastolic blood pressure 85 mm[Hg] Nicky NILL [facility] 05-20-2022 14:38-0400 Heart rate 67 /min Nicky NILL [facility] 05-20-2022 14:38-0400 Respiratory rate 14 /min Nicky NILL [facility] 05-20-2022 14:38-0400 SaO2% (BldA) [Mass fraction] 100 % Nicky NILL [facility] 05-20-2022 14:38-0400 Systolic blood pressure 122 mm[Hg] Nicky NILL [facility] 05-20-2022 14:25-0400 Respiratory rate 11 /min Nicky NILL [facility] 05-20-2022 14:15-0400 Respiratory rate 15 /min Nicky NILL [facility] 05-20-2022 13:41-0400 Blood Pressure Location Nicky NILL [facility] 05-20-2022 13:41-0400 Body temperature 97.52 [degF] Nicky NILL [facility] 05-20-2022 13:35-0400 Respiratory rate 14 /min Nicky NILL [facility] 05-20-2022 10:00-0400 Body temperature 98.06 [degF] Nicky NILL [facility] 05-20-2022 10:00-0400 Mean blood pressure 103 mm[Hg] Nicky NILL [facility] 05-20-2022 10:00-0400 Heart rate 66 /min Nicky NILL [facility] 05-13-2022 12:32-0400 Blood Pressure Location Nicky NILL [facility] 05-13-2022 12:32-0400 BP/Pulse Patient Position Nicky NILL [facility] 05-13-2022 12:32-0400 Diastolic blood pressure 86 mm[Hg] Nicky NILL [facility] 05-13-2022 12:32-0400 Heart rate 67 /min Nicky NILL [facility] 05-13-2022 12:32-0400 Mean blood pressure 102 mm[Hg] Nicky NILL [facility] 05-13-2022 12:32-0400 Respiratory rate 18 /min Nicky NILL [facility] 05-13-2022 12:32-0400 Systolic blood pressure 134 mm[Hg] Nicky NILL [facility] 05-13-2022 12:30-0400 Blood Pressure Location Nicky NILL [facility] 05-13-2022 12:30-0400 BP/Pulse Patient Position Nicky NILL [facility] 05-13-2022 12:30-0400 Diastolic blood pressure 83 mm[Hg] Nicky NILL [facility] 05-13-2022 12:30-0400 Heart rate 69 /min Nicky NILL [facility] 05-13-2022 12:30-0400 Mean blood pressure 102 mm[Hg] Nicky NILL [facility] 05-13-2022 12:30-0400 SaO2% (BldA) [Mass fraction] 97 % Nicky NILL [facility] 05-13-2022 12:30-0400 Systolic blood pressure 140 mm[Hg] Nicky NILL [facility] 05-13-2022 12:30-0400 Body temperature 97.7 [degF] Nicky NILL [facility] 04-27-2022 09:05-0400 Blood Pressure Location Nicky NILL [facility] Surgery [place] 04-27-2022 09:05-0400 Diastolic blood pressure 95 mm[Hg] Nicky NILL [facility] Surgery [place] 04-27-2022 09:05-0400 Heart rate 58 /min Nicky NILL [facility] Surgery [place] 04-27-2022 09:05-0400 Respiratory rate 16 /min Nicky NILL [facility] Surgery [place] 04-27-2022 09:05-0400 Systolic blood pressure 141 mm[Hg] Nicky NILL [facility] 04-23-2022 11:11-0400 Blood Pressure Location Patrick OWEN [facility] 04-23-2022 11:11-0400 Diastolic blood pressure 87 mm[Hg] Patrick OWEN [facility] 04-23-2022 11:11-0400 Heart rate 75 /min Patrick OWEN [facility] 04-23-2022 11:11-0400 Respiratory rate 16 /min Patrick OWEN [facility] 04-23-2022 11:11-0400 Systolic blood pressure 130 mm[Hg] Patrick OWEN [facility] Encounters Encounter Date Encounter Type Care Provider Facility Start: 04-18-2023 End: 04-19-2023 ambulatory Patrick OWEN Facility:[facility] Start: 04-18-2023 End: 04-18-2023 Patient encounter procedure Patrick OWEN [facility] Start: 01-06-2023 End: 01-06-2023 ambulatory Georgia Del Cid Other [facility] Other Start: 01-06-2023 Office outpatient visit 15 minutes Georgia Maria Eugenia [facility] Start: 11-30-2022 End: 11-30-2022 ambulatory Imad Asaad Facility:[place] Start: 11-04-2022 End: 11-04-2022 ambulatory Imad Asaad Other [facility] Other Start: 11-04-2022 Telephone encounter Imad Asaad [facility] Start: 10-28-2022 End: 10-29-[address] PATRICK OWEN . Facility:[facility] Start: 10-26-[address] PATRICK OWEN . Fac ility:[facility] Start: 10-22-2022 End: 10-23-[address] PATRICK OWEN . Facility:[facility] Start: 10-22-2022 End: 10-23-2022 ambulatory Patrick OWEN Facility:[facility] Start: 10-21-2022 End: 10-21-2022 ambulatory Domonique Myers Facility:[place] Start: 10-21-2022 End: 10-21-2022 ambulatory DO Jude R Ruvalcaba III Work Phone: [facility] Work Phone: Start: 10-21-2022 End: 10-21-2022 Patient encounter procedure DO Jude Ruvalcaba III Work Phone: [facility] Work Phone: Start: 06-25-2022 End: 06-26-2022 ambulatory Nicky R SANFORD Facility: [place] Start: 06-25-2022 End: 06-25-2022 Patient encounter procedure Nicky R AMANDAL General Surgery Nill/Said [place] Start: 06-22-2022 ambulatory Nicky R AMANDAL Facility : [place] Start: 06-02-2022 End: 06-03-2022 ambulatory Nicky R NILL Facility: [place] Start: 06-02-2022 End: 06-02-2022 Patient encounter procedure Nicky R NILL General Surgery Nill[facility] [place] Start: 05-20-2022 End: 05-20-2022 ambulatory Nicky R NILL Facility:[facility] Start: 05-20-2022 End: 05-20-2022 Admission to same day surgery center Nicky R NILL [facility] Start: 05-13-2022 End: 05-14-2022 ambulatory Nicky R NILL Facility:[facility] Start: 05-13-2022 End: 05-13-2022 Patient encounter procedure Nicky R NILL [facility] Start: 04-27-2022 End: 04-28-2022 ambulatory Nicky R NILL Facility: [place] Start: 04-27-2022 End: 04-27-2022 Patient encounter procedure Nicky R NILL [facility] General Surgery [place] Start: 04-23-2022 End: 04-23-[address] PATRICK OWEN . Facility:[facility] Start: 04-23-2022 End: 04-23-2022 Patient encounter procedure Patrick OWEN [facility] [place] Start: 04-04-2022 End: 04-04-2022 ambulatory SALBADOR HERNANDEZ Facility:[facility] Start: 02-17-2022 End: 02-17-2022 ambulatory UMM SILVERMAN . Facility:[facility] Start: 10-14-2017 End: 10-17-2017 Ambulatory NAHOMY (MAZIN) [facility] Jose Manuel [facility] Procedures Date Procedure Procedure Detail Performing Clinician Start: 10-21-2022 Plain chest X-ray DO Yasmine Ruvalcaba III Work Phone: Start: 05-20-2022 Laparoscopy surg rpr initial inguinal hernia Nicky CHRISTINA Start: 11-03-2020 Follow-up visit Start: 08-28-2020 Follow-up visit Start: 02-27-2015 Harris bunionectomy, right Patrick OWEN Start: 01-02-2015 Harris bunionectomy, left foot Patrick OWEN Start: 10-23-2012 Hemorrhoidectomy Willited OWEN Cholecystectomy Patrick BANUELOS Circumcision Patrick OWEN Colonoscopy Patrick OWEN Colonoscopy Patrick OWEN Laparoscopic cholecystectomy Patrick OWEN Lateral sphincterotomy Amy costa BRAYDEN removal of ingrown toenail 1 Patrick OWEN Comment on above: left great toe removal of ingrown toenail 1 Nicky CHRISTINA Comment on above: left great toe Tooth extraction ALLI LEONA Payers Date Payer Category Payer Self-pay [id number] 1980 Unknown [id number] .16.84 [id number] 1980 Unknown [id number] .16.84 0.1.583311.3.579.2.593 1981 Unknown [id number] .16.84 0.1.496947.3.579.2.593 1981 Unknown [id number] .16.84 0.1.736922.3.579.2.593 1981 Unknown [id number] 2.16.84 0.1.345514.3.579.2.593 1981 Unknown [id number] 2.16.84 0.1.535493.3.579.2.593 1981 Unknown [id number] 2.16.84 0.1.972834.3.579.2.593 1981 Unknown [id number] 2.16.8 40.1.227397.3.579.2.727 1981 Unknown [id number] 2.16.8 40.1.108933.3.579.2.727 1981 Unknown [id number] 2.16.8 40.1.887152.3.579.2.727 1981 Unknown [id number] 2.16.8 40.1.514835.3.579.2.727 1981 Unknown [id number] 2.16.8 40.1.947801.3.579.2.727 1981 Unknown [id number] 2.16.8 40.1.844953.3.579.2.727 1981 Unknown [id number] 2.16.8 40.1.941305.3.579.2.727 1981 Unknown [id number] 2.16.8 40.1.863483.3.579.2.727 1980 Unknown [id number] 2.16.8 40.1.844675.3.579.2.727 1958 Medicaid [id number] 1958 Medicaid [id number] 2. [id number] Unknown [id number] 2.16.8 40.1.313273.3.579.2.531 Unknown [id number] 2.16.8 40.1.660128.3.579.2.531 Social History Date Type Detail Facility Start: 01-31-2020 End: 04-23-2022 Tobacco smoking status Smoker (finding) [facility] Sex Assigned At Male [facility] Start: 04-27-2022 Tobacco smoking status Heavy t obacco smoker (finding) [facility] Comment on above: Smoker Tobacco smoking status Never Live [facility] Comment on above: Smoker Start: 1980 Sex Assigned At Male F [facility] Medical Equipment Procedure Code Equipment Code Equipment Origin al Text Equipment Identifier Dates INGUINAL HERNIA REPAIR ADULT [place] CORONEL, Nicky Guidry 05/20/22 Non Biological Abdomen {[id number] [facility] Start: 05-20-2022 Functional Status Date Assessment Result Facility 05-13-2022 Functional Status No [facility] 04-27-2022 Functional Status N/A [facility] 04-23-2022 Functional Status N/A [facility] Clinical Notes 04-23-2022 to 01-06-2023 Note Date [...] worsening. Patient verbalized understanding of treatment plan. [facility] Other 04-13-2023 Hospital Discharge instructions Follow Up Care 11/04/2022 10:27:15 With:BRAYDEN CORONEL, Patrick Guidry, URL Address: [facility] [address], [place] [address]- [phone] When: Unknown [facility] 2022 Hospital Discharge instructions Patient Education 05/20/2022 14:32:40 Post Op Patient Instructions - FT (CUSTOM) Follow Up Care 04/27/2022 09:44:58 With:Nicky CHRISTINA Address: [address] [place] [address], [address] [address]- Business (1) When:7 to 10 days [facility]2022 NotePatient: BRIAN TSE Age: 41 years Sex: Male : 1980 Associated Diagnoses: None Author: Nicky CHRISTINA MD Subjective no changes to [facility]estern [facility] HospitalComment on above:Result Comment: Electronically Signed By: Nicky CHRISTINA MD\.br\Date and Time Signed: 05/20/22 11:55 [id number]:127 [facility]10-05-2022 NoteChief Complaint consultation for [facility] Staff 41 year old male presents on consultation from Dr. Owen for left inguinal hernia. Presented to [place] ED 04/[address] CT completed [...] referred for left inguinal hernia; patient in [place] ED 04/04/22 for abd pain, found to [...] Major depressive disorder, sing (more content not included)...[facility] Comment: Electronically Signed By: [place] CORONEL, Nicky Baker\Date and Time Signed: 04/28/22 06:07 [id number] Hospital Discharge instructions Patient Education 04/23/2022 12:05:06 Kidney Stones, [id number] Kidney Stones Kidney stones are rock-like masses [...] Follow these instructions at home: Medicines Take ulqy-adf-zihaays and prescription medicines only as told by [...] 12/27/2008 Document Revised: 11/27/2019 Document Reviewed: 11/27/2019 [employer] Patient Education 2020 [employer]. Follow Up Care 04/22/2022 09:22:48 With:Patrick OWEN MD, URL Address: [address] [place] [address]- When: Unknown [facility] evaluation + Plan note Future Appointments Appointment Date:04/27/2022 09:00:00 AM Scheduled Provider:Nicky CHRISTINA MD Location:[facility] Appointment Type:[facility] 30 Appointment Date:10/22/2022 08:45:00 AM Scheduled Provider:Patrick OWEN MD Location:[facility] Appointment Type:URO Office Visit Diagnostic Tests Pending * Calculi Analysis Urinary 04/23/22 [facility] evaluation + Plan note Future Appointments Appointment Date:05/13/2022 12:30:00 PM Scheduled Provider: Location:[facility] Appointment Type:Surgical PAT FT Appointment Date:05/13/2022 01:30:00 PM Scheduled Provider: Location:[facility] Appointment Type:Surgery PAT COVID Testing Appointment Date:05/20/2022 11:30:00 AM Scheduled Provider: Location:[facility] Appointment Type:Surgery FT Appointment Date:10/22/2022 08:45:00 AM Scheduled Provider:Patrick OWEN MD Location:[facility] Appointment Type:URO Office Visit [facility] General [facility] [place] Evaluation + Plan note Future Appointments Appointment Date:05/20/2022 11:30:00 AM Scheduled Provider: Location:[facility] Appointment Type:Surgery FT Appointment Date:10/22/2022 08:45:00 AM Scheduled Provider:Patrick OWEN MD Location:[facility] Future Appointments Appointment Date:10/22/2022 08:45:00 AM Scheduled Provider:[facility] Future Appointments Appointment Date:06/22/2022 02:40:00 PM Scheduled Provider:Nicky CHRISTINA MD Location:[facility] Appointment Type: Post Op 15 Appointment Date:10/22/2022 08:45:00 AM Scheduled Provider:Patrick OWEN MD Location:[facility] Appointment Type:URO Office Visit General Surgery [place] Evaluation noteNo assessment information available [facility] Work Phone: Evaluation noteNo InformationNortJefferson [facility] Other History general Narrative - Reported* Type Description Date Medical History Diabetes Medical History Renal calculi Medical History Hematochezia Surgical History CHOLECYSTECTOMY Surgical History HEMORRHOIDECTOMY Surgical History Foot Surgery Surgical History bunionectomy [facility] Other Hospital course Narrative No data available for this section [facility] Hospital Discharge instructions No data available for this section [facility] [place] Progress note No data available for this section [facility] Summary Purpose Family History No Family History [...] N47.1 Postoperative Diagnosis: Phimosis, N47.1 Surgeon: Nicky Garay Resident/Fellow/Other Put In Beat Adjuster: Radha Madrigal Procedure: 1. CIRCUMCISION Anesthesia: No anesthesiologist associated with this case Estimated Blood Loss: 20 Findings: see dictation Specimens(s) Collected: yes, foreskin Urine Output: 200 Electronic Signatures: Nicky Garay) (Signed 05-Sep-2020 12:29) Authored: Post-Operative Note, Chart Review, Note Completion Last Updated: 05-Sep-2020 12:29 by Nicky Garay) Additional Source Comments (unrecognized sect ion and content) No Status Records FoundNo Status Records FoundNo Status Records FoundNo Status Records FoundNo Status Records FoundNo Status Records FoundNo Status Records Found INFORMATION SOURCE (unrecogn ized section and content) DATE CREATED AUTHOR 01/12/2018 [facility] DATE CREATED AUTHOR AUTHOR'S ORGANIZ ATION 09/16/2020 [facility] DATE CREATED AUTHOR AUTHOR'S ORGANIZ ATION 11/04/2020 [facility] DATE CREATED AUTHOR AUTHOR'S ORGANIZ ATION 11/04/2020 [employer] DATE CREATED AUTHOR AUTHOR'S ORGANIZ ATION 12/04/2022 [facility] DATE CREATED AUTHOR AUTHOR'S ORGANIZ ATION 12/06/2022 [facility] DATE CREATED AUTHOR AUTHOR'S ORGANIZ ATION 04/26/2023 [facility] Care Team (unrecognized sect ion and [...] BE BASED ON THE PRIMARY CLINICAL RECORDS. [employer] provides no warranty or guarantee of the accuracy or completeness of information in this document.
[2023-10-05 09:50] LABS: Basophils Absolute Auto 0.1 10^3/uL (0.0-0.1); Basophils Percent Auto 0.6 % (0.2-2.0); Eosinophils Absolute Auto 0.2 10^3/uL (0.0-0.7); Eosinophils Percent Auto 1.6 % (0.9-7.0); Hematocrit 46.9 % (42.0-54.0); Hemoglobin 15.4 g/dL (14.0-18.0); Immature Granulocytes Abs Auto 0.04 10^3/uL (0.00-0.03); Immature Granulocytes Pct Auto 0.4 % (0.0-0.5); Lymphocytes Absolute Auto 2.4 10^3/uL (1.2-3.8); Lymphocytes Percent Auto 21.8 % (20.5-60.0); Mean Corpuscular HGB Conc 32.8 g/dL (29.9-35.2); Mean Corpuscular Hemoglobin 28.9 pg (25.9-34.0); Mean Platelet Volume 10.3 fL (9.5-13.5); Monocytes Absolute Auto 0.8 10^3/uL (0.3-0.8); Monocytes Percent Auto 7.6 % (1.7-12.0); Neutrophils Absolute Auto 7.5 10^3/uL (1.4-6.5); Platelet Count 250 10^3/uL (150-450); Red Blood Count 5.33 10^6/uL (4.70-6.10); Red Cell Distribution Width 14.3 % (11.0-15.0); White Blood Count 11.1 10^3/uL (4.0-11.0)
[2023-10-05 10:04] LABS: Anion Gap 17.9; BUN Creatinine Ratio 6.2; Calcium 8.5 mg/dL (8.5-10.1); Carbon Dioxide 23.4 mmol/L (21.0-32.0); Chloride 98 mmol/L (98-107); Estimated GFR (African America >60 (>=60); Estimated GFR (Non-African Ame 54 (>=60); Glucose 316 mg/dL (74-106); Potassium 3.3 mmol/L (3.5-5.1); Sodium 136 mmol/L (136-145)
== END 2023-10-05 10:38 | disposition home or self-care (01) ==
PROVIDERS: Emergency Provider Emergency Medicine
DX: R10.9 Unspecified abdominal pain (principal); F17.210 Nicotine dependence, cigarettes, uncomplicated; Z79.899 Other long term (current) drug therapy
CPT/HCPCS: 36415; 74177; 80048; 85025; 99284; Q9967

== ENCOUNTER 2024-03-05 09:11 | Outpatient (OUT) | payer OTHER, SELFPAY ==
--- NOTE | 2024-03-05 | XR_ITS ---
The [address] [address] Patient Name: YESENIA TSE MRN: [id number] date: 1980 Sex: M Assigned Patient Location: Current Patient Location: Accession/Order Number: [id number] Exam Date: 03/05/2024 09:14 Report Date: 03/07/2024 06:25 At the request of: JUANITA VILLAR Procedure: XR foot LT min 3V PROCEDURE: XR foot LT min 3V HISTORY: LEFT FOOT PAIN COMPARISON: XR foot left 02/14/2024 FINDINGS: BONES:Stable surgical changes of first metatarsal. No fracture, dislocation, bone lesion. SOFT TISSUES:No visible soft tissue swelling. EFFUSION:None visible. OTHER: Negative. XR/XR foot LT min 3V IMPRESSION: 1. Stable surgical changes. 2. No new/acute findings to account for patient's symptoms. Electronically authenticated by: JUANITA DYKES Date: 03/07/2024 06:25
--- OUTSIDE RECORDS SUMMARY | 2024-03-05 09:32 | XMS_ITS | CCD ---
Author Organization [facility] Care Team Providers Care Import/Export Agent Name Role Phone NAHOMY SHARP (MAZIN) Unavailable Unavailable Jude Ruvalcaba III Primary Care Physician SALBADOR BOOKER Primary Care Physician DO Jude Ruvalcaba III Primary Care Provider ALMA DELIA Myers Attending Provider Asaad, Imad Unavailable HERRERA ., UMM Admitting Unavailable HERRERA ., UMM Attending Unavailable DAVID, SALBADOR Primary Care Unavailable JANIA, DR JUANITA Guidry Consulting Unavailable EL .DONAVAN Consulting Unavailable DAVID, SALBADOR Primary Care Unavailable DAYA WHARTON Admitting Unavailable DAYA WHARTON Attending Unavailable JANIA, DR JUANITA Guidry Consulting Unavailable DAYA WHARTON Consulting Unavailable BRAYDEN ., DR NGUYEN Admitting Unavailable OWEN ., DR NGUYEN Attending Unavailable DAVID, SALBADOR Primary Care Unavailable OWEN ., DR NGUYEN Admitting Unavailable OWEN ., DR NGUYEN Attending Unavailable DAVID, SALBADOR Primary Care Unavailable OWEN ., DR NGUYEN Consulting Unavailable RANMOIZ [place] Consulting Unavailable SANDRA II, AMIRA Consulting Unavailable HEGG, SABI Consulting Unavailable OWEN ., DR NGUYEN Admitting Unavailable OWEN ., DR NGUYEN Attending Unavailable DAVID, SALBADOR Primary Care Unavailable OWEN ., DR NGUYEN Consulting Unavailable OWEN ., DR NGUYEN Admitting Unavailable OWEN ., DR NGUYEN Attending Unavailable DAVID, SALBADOR Primary Care Unavailable OWEN ., DR NGUYEN Consulting Unavailable ZIEBVADIM, DR JUANITA Guidry Consulting Unavailable OWEN ., DR NGUYEN Admitting Unavailable OWEN ., DR NGUYEN Attending Unavailable DAVID, SALBADOR Primary Care Unavailable Asaad, Imad Admitting Unavailable Asaad, Imad Attending Unavailable David, Salbador A Primary Care Unavailable Domonique Myers Admitting Unavailable Domonique Myers Attending Unavailable Jude Ruvalcaba III Primary Care UnavailGeorgia Avila Unavailable SALBADOR BOOKER Primary Care Physician Yuko Concepcion Primary Care Provider SALBADOR BOOKER Primary Care Physician Patrick OWEN Attending Unavailable Reddy Thao Attending Unavailable Allergies Allergy Classification Reported Allergen(s) Allergy Type Date of Onset Reaction(s) Facility metFORMIN (1 source) metFORMIN; Translations: [metformin] Drug Allergy Diarrhea (finding) [facility] (9 sources) metFORMIN; Translations: [metformin] Drug Allergy Diarrhea (finding), Diarrhea [facility] (1 source) metFORMIN Drug Allergy [facility] (1 source) Acetaminophen / oxyCODONE; Translations: [Percocet 5/325] Drug Allergy [facility] Repository (1 source) No Known Medication Allergies; Translations: [No Known Medication Allergies] Propensity to adverse reactions (disorder) [facility] Repository Medications Current Medications Medication Drug Class(es) Dates Sig (Normalized) Sig (Original) acetaminophen 325 mg / oxyCODONE hydrochloride 5 mg oral tablet (1 source) Opioid Agonist Start: 05-20-2022 End: 05-25-2022 Percocet 325 mg-5 mg Tab 1 tab(s), Oral, q3hr Pain, 20 tab(s), Refill(s) 0, take with food or milk, [facility]/pharmacy #[id number], 180, cm, 05/13/22 12:43:00 EDT, Height/Length Dosing, 101.4, kg, 05/13/22 12:43:00 EDT, Weight Dosing Start Date: 05/20/22 Stop Date: 05/25/22 Status: Ordered amoxicillin 875 mg / clavulanate 125 mg oral tablet (1 source) Penicillin-class Antibacterial Start: 01-06-2023 take 1 tablet by mouth every twelve hours Amoxicillin-Pot Clavulanate 875-125 MG 1 tablet Orally every 12 hrs for 10 days Dec, Active blood-glucose meter (glucose monitoring kit) kit (1 source) Start: 07-05-2023 blood-glucose meter (glucose monitoring kit) kit Use as instructed 1 each 0 07/05/2023 Active 24 hr buPROPion hydrochloride 150 mg extended release oral tablet (1 source) Aminoketone Start: 2023 take 1 tablet by mouth once daily in the morning buPROPion XL (WELLBUTRIN XL) 150 mg 24 hr tablet Take 1 tablet (150 mg total) by mouth every morning. 30 tablet 2 2023 Active chlorhexidine gluconate 1.2 mg/ml mouthwash (1 [...] Ordered 0.5 ml dulaglutide 1.5 mg/ml auto-injector (6 sources) GLP-1 Receptor Agonist Start: 08-08-2023 End: 2023 dulaglutide (TRULICITY) 0.75 mg/0.5 mL pen injector Inject 0.5 mL (0.75 mg total) under the skin every 7 days. 2 mL 0 2023 Active Start: 01-29-2020 Dulaglutide (T rulicity) 0.75 mg/0.5 mL pen injector Active 0.75 MG SUBCUT As Directed January 29, 2020 12:00am Start: 07-26-2018 Trulicity Pen SubCutaneous, Refills(s) 0 Start Date: 07/26/18 Status: Ordered Trulicity Palmer-Andrew Pachecoulictuyet Active fluconazole 150 mg oral tablet (2 sources) Azole Antifungal Start: 01-06-2023 take 1 tablet by mouth once Diflucan 150 MG 1 tablet Orally once for 1 days Dec, Active Start: 07-30-2020 fluconazole 15 0 mg Tab 150 mg = 1 tab(s), Oral, Once, repeat in 3 days, # 2 tab(s), Refills(s) 0, Pharmacy: [id number], 173, cm, 07/30/20 10:33:00 EST, Height/Length Dosing, 109.1, kg, 07/30/20 10:33:00 EST, Weight Dosing Start Date: 07/30/20 Status: Ordered glyBURIDE 5 mg oral tablet (10 sources) Sulfonylurea Start: 04-23-2022 End: 2023 take 1 tablet by mouth at mealtime glyBURIDE (DIABETA) 5 mg tablet Indications: Type 2 diabetes mellitus without complication, without long-term current use of insulin ([facility]) TAKE 1 TABLET BY MOUTH IN THE MORNING AND AT NIGHT WITH MEALS 60 tablet 2 2023 Active Hydrocortisone (1 source) Corticosteroid Start: 07-30-2020 apply [...] Ordered Start: 02-04-2020 take 1 capsule by [facility] every twelve hours Omeprazole 40 MG 1 capsule Orally bid for 10 day(s) Jan, Not-Taking SITagliptin 100 mg oral tablet (4 sources) Dipeptidyl Peptidase 4 Inhibitor Start: 01-29-2020 take 1 tablet by mouth once daily Januvia 100 mg Tab 100 mg = 1 tab(s), Oral, Daily, # 30 tab(s), Refills(s) 0 Start Date: 09/11/20 Status: Ordered tamsulosin hydrochloride 0.4 mg oral capsule (3 sources) alpha-Adrenergic Liliam Start: 11-05-2022 End: 2023 take 1 capsule by mouth once daily tamsulosin 0.4 mg Cap 0.4 mg = 1 cap(s), Oral, Daily, # 30 cap(s), Refills(s) 0, Pharmacy: [facility]/pharmacy #[id number], 180, cm, 10/22/22 9:12:00 EDT, Height/Length Dosing, 103.2, kg, 10/22/22 9:12:00 EDT, Weight Dosing Start Date: 11/05/22 Status: Ordered traZODone hydrochloride 50 mg oral tablet (1 source) Serotonin Reuptake Inhibitor Start: 2023 take 1 tablet by mouth once daily traZODone (DESYREL) 50 mg tablet Take 1 tablet (50 mg total) by mouth nightly. 30 tablet 2 2023 Active Completed/Discontinued Medications Medication Drug Class(es) Dates Sig [...] 10 day(s) Jan, Not-Taking polyethylene glycol 3350 924461 mg / potassium chloride 2970 mg / sodium bicarbonate 6740 mg / sodium chloride 5860 mg / sodium sulfate 81405 mg powder for oral solution (3 sources) Osmotic Laxative Start: 11-04-2022 End: 2023 GAVILYTE-G 236-22.74-6.74 -5.86 gram solution daily. 0 11/04/2022 2023 Discontinued (Therapy completed) valACYclovir 1000 mg oral tablet (1 source) Herpesvirus Nucleoside Analog DNA Polymerase Inhibitor, Herpes Simplex Virus Nucleoside Analog DNA Polymerase Inhibitor, Herpes Zoster Virus Nucleoside Analog DNA Polymerase Inhibitor Start: 07-04-2023 End: 2023 take 2 tablets by mouth in the morning, then take 2 tablets by mouth at bedtime valACYclovir (VALTREX) 1000 mg tablet Take 2 tablets (2,000 mg total) by mouth in the morning and 2 tablets (2,000 mg total) before bedtime. 4 tablet 0 07/04/2023 2023 Discontinued (Therapy completed) Problems Active Problems Problem Classification Problem Date Documented Da te Episodic/Chronic Abdominal hernia (20 sources) Inguinal hernia; Translations: [Unilateral inguinal hernia, without obstruction or gangrene, not specified as recurrent] Onset: 2 Episodic Abdominal pain (5 sources) Abdominal pain; Translations: [Unspecified abdominal pain] Onset: 2 Episodic Acquired foot deformities (3 sources) Hallux valgus; Translations: [Hallux valgus (acquired), unspecified foot] Onset: 2 03-08-2018 Chronic Administrative/social admission (1 source) Patient encounter status; Translations: [Encounter for other administrative examinations] 2023 Episodic Anxiety disorders (2 sources) Anxiety; Translations: [Anxiety disorder, unspecified] Onset: 4 2023 Chronic Calculus of urinary tract (20 sources) Ureteric stone; Translations: [Calculus of ureter] Onset: 2 Episodic Diabetes mellitus with complications (1 source) 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 mellitus; Translations: [Type 2 diabetes mellitus with diabetic polyneuropathy] Onset: 2 09-09-2021 Chronic Diabetes mellitus without complication (19 sources) Diabetes mellitus; Translations: [Type 2 diabetes mellitus without complications] Onset: 2 07-30-2020 Chronic Disorders of teeth and jaw (1 source) Acute gingivitis, plaque induced Episodic Esophageal disorders (2 sources) Gastroesophageal reflux disease; Translations: [Gastro-esophageal reflux disease without esophagitis] Chronic Gastrointestinal hemorrhage (5 sources) Rectal hemorrhage; Translations: [Hematochezia] Onset: 3 03-08-2018 Episodic Hemorrhoids (2 sources) Hemorrhoids 03-08-2018 Episodic Mood disorders (8 sources) Major depression, single episode 09-11-2020 Chronic Mycoses (9 sources) Candidal balano-posthitis; Translations: [Other urogenital candidiasis] Onset: 2 07-30-2020 Episodic Nausea and vomiting (4 sources) Nausea; Translations: [Nausea] Episodic Osteoarthritis (1 source) Arthritis of right acromioclavicular joint; Translations: [Primary osteoarthritis, right shoulder] Onset: 8 09-09-2021 Chronic Other aftercare (1 source) 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; Translations: [DETENTION USE ORAL 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 DX] Onset: 3 Episodic Other gastrointestinal disorders (2 sources) Diarrhea; Translations: [Diarrhea, unspecified] Episodic Other gastrointestinal disorders (2 sources) Abnormal frequency of defecation; Translations: [Change in bowel habit] Episodic Other gastrointestinal disorders (2 sources) Rectal discharge; Translations: [Other specified symptoms and signs involving the digestive system and abdomen] Episodic Other liver diseases (8 sources) Elevated liver enzymes level 09-11-2020 Episodic Other nervous system disorders (1 source) Mortons neuroma of right foot; Translations: [Lesion of plantar nerve, right lower limb] Onset: 2 09-09-2021 Chronic Other nervous system disorders (1 source) Plantar nerve lesion; Translations: [Lesion of plantar nerve, unspecified lower limb] Onset: 2 09-09-2021 Chronic Other nutritional; endocrine; and metabolic disorders (11 sources) Body mass index 30+ - obesity; Translations: [Body mass index (BMI) 30.0-30.9, adult] Onset: 2 07-30-2020 Chronic Pneumonia (except that caused by tuberculosis or sexually transmitted disease) (2 sources) Pneumonia 10-05-2013 Episodic Comment on above: years ago 24 yo Regional enteritis and ulcerative colitis (1 source) Crohn's disease 04-27-2022 Chronic Residual codes; unclassified (8 sources) Tobacco user 10-23-2012 Episodic Comment on above: Added secondary to s ocial history documentation. Residual codes; unclassified (1 source) Acquired absence of other specified parts of digestive tract; Translations: [ACQ ABSENCE OTH PART DIGESTV TRACT] Onset: 3 Episodic Residual codes; unclassified (2 sources) Disturbance in sleep behavior; Translations: [Sleep disorder, unspecified] Onset: 4 2023 Episodic Screening and history of mental health and substance abuse codes (6 sources) Tobacco use and exposure - finding 04-28-2022 Chronic Sprains and strains (2 sources) Strain of muscle(s) and tendon(s) of the rotator cuff of right shoulder, initial encounter; Translations: [Rotator cuff (capsule) sprain] Onset: 8 09-09-2021 Episodic Substance-related disorders (18 sources) Smoker; Translations: [Nicotine dependence, cigarettes, uncomplicated] Onset: 2 04-23-2022 Chronic Comment on above: Added secondary to d ocumentation in Social History. Unclassified (1 source) CONTACT W/AND (SUSP) EXPOS COVID-19; Translations: [CONTACT W/AND (SUSP) EXPOS COVID-19] Onset: 2 Unclassified (1 source) Injury, unspecified, initial encounter; Translations: [Injury, unspecified, initial encounter] Onset: Past or Other Problems Problem Classification Problem Date Documented Da te Episodic/Chronic Fever of unknown origin (3 sources) Fever; Translations: [Fever, unspecified] Onset: 09-09-2021 07-30-2020 Episodic Headache; including migraine (5 sources) Chronic headache disorder; Translations: [Headache] Onset: 09-09-2021 03-08-2018 Episodic Mood disorders (2 sources) Mood disorders; Translations: [DEPRESSION UNSPECIFIED] Onset: 11-01-2022 07-04-2023 Nonspecific chest pain (4 sources) Other chest pain; Translations: [OTHER CHEST PAIN] Onset: 02-17-2022 Episodic Other circulatory disease (3 sources) Elevated blood pressure; Translations: [Elevated blood-pressure reading, without diagnosis of hypertension] Onset: 09-09-2021 07-30-2020 Episodic Other connective tissue disease (1 source) Tendonitis of right shoulder; Translations: [Other enthesopathies, not elsewhere classified] Onset: 10-14-2017 09-09-2021 Episodic Unclassified (1 source) Onset: 12-16-2022 12-16-2022 Results Test Name Value Interpretation Reference Range Facility ED Clinical Summaryon 2023 ED Clinical Summary ED Clinical Summary [place] [id number] ED Clinical Summary Person Information Name: BRIAN TSE [facility] Age: 43 Years : 1980 Sex: Male Language: Telugu PCP: SALBADOR BOOKER CNP Marital Status: Single Phone: [phone] Visit Id: Visit Reason: Foot pain-swelling; LT FOOT INJURY Speciality: Acuity: 4 Enc Type: Emergency Med Service: Emergency Arrival: 02/14/2024 15:56:45 Discharge: 02/14/2024 17:04:53 LOS: 000 01:08 Checkin: 02/14/2024 15:56:45 Checkout: 02/14/2024 17:04:53 Dispo Type: Home (Routine DC) EVENTS: Event Name Event Status Request Date/Time Start Date/Time Complete Date/Time Arrive Complete 02/14/2024 15:56:45 02/14/2024 15:56:45 02/14/2024 15:56:45 Document Home Meds Request 02/14/2024 15:56:45 Triage Complete 02/14/2024 15:56:45 02/14/2024 16:16:47 02/14/2024 16:16:47 Bed Assign Complete 02/14/2024 16:09:53 02/14/2024 16:09:53 02/14/2024 16:09:53 Dr Exam Complete 02/14/2024 16:09:53 02/14/2024 16:16:54 02/14/2024 16:16:54 RN Exam Complete 02/14/2024 16:09:53 02/14/2024 16:21:56 02/14/2024 16:21:56 Registration Complete 02/14/2024 16:16:54 02/14/2024 16:26:19 02/14/2024 16:26:19 Dr Exam Complete 02/14/2024 16:17:14 02/14/2024 16:17:14 02/14/2024 16:17:14 X-Ray Complete 02/14/2024 16:22:47 02/14/2024 16:24:32 02/14/2024 16:36:50 Meds Admin Complete 02/14/2024 16:22:47 02/14/2024 16:34:26 Reg Complete Request 02/14/2024 16:26:19 Reg Bed Request Complete 02/14/2024 16:26:19 02/14/2024 16:26:19 02/14/2024 16:26:19 Wet Read Request 02/14/2024 16:36:50 Patient Care Complete 02/14/2024 16:44:48 02/14/2024 17:04:26 Discharge Complete 02/14/2024 16:55:41 02/14/2024 17:04:58 02/14/2024 17:04:58 Transfer Complete 02/14/2024 17:04:58 02/14/2024 17:04:58 02/14/2024 17:04:58 ADDRESS: [place] [facility] [id number] PHYS DOC NOTES: MEDICAL INFORMATION: Prescriptions Given: Medications to Continue with No Changes Other Medications glyBURIDE (GlyBURIDE (Eqv-Micronase) 5 mg oral tablet) 1 Tablets By Mouth 2 times a day. tamsulosin (tamsulosin 0.4 mg Cap) 1 Capsules By Mouth every day. Refills: 0. PATIENT EDUCATION INFORMATION: Instructions: How to Use a Cast Shoe; Foot Sprain Follow up: With: Address: When: SALBADOR BOOKER [address], [place] [id number] [employer] ([employer] In 3 days 02/17/2024 Comments: Return to the emergency room if your pain gets worse or any new symptoms. DIAGNOSIS: 1:Sprain of left foot Normal [facility] ED Note-Physicianon 02-14-20 ED Note-Physician ED Note-Physician Basic Information Time Seen: Reddy Thao M.D. 02/14/2024 16:16 Chief Complaint running for training at school, stepped on something, felt it push up on ball of Lt foot. pain in that area. History of Present Illness The patient is a 43-year-old male who presented to the emergency room with left foot pain. The patient states he was running and stepped on something high. The patient points for the pain over the metatarsal area. The patient denies taking medication prior to the arrival. He denies any other associated symptoms or any other injuries. Review of Systems Additional ROS info: Except as noted in the above Review of Systems and in the History of Present Illness all other systems have been reviewed and are negative or noncontributory. Physical Exam Vitals & Measurements T: 37.1 ?C(Oral) HR: 79(Peripheral) RR: 18 BP: 131/86 SpO2: 98% HT: 178 cm WT: 100 kg BMI: 31.56 General: alert, no acute distress Skin: warm, dry Head: no trauma, normocephalic Neck: Trachea midline Eye: normal conjunctiva, sclera clear Cardiovascular: regular rate and rhythm, Respiratory: Lungs CTA, respirations non labored, breath sounds equal Extremities: no deformity, no trauma, there is tenderness over the metatarsophalangeal area on the left foot. There is no tenderness on the ankle. No tenderness proximal fibula. Neurovascular is intact distally. Neurological: Alert and oriented, speech normal, no focal neuro deficits Psychiatric: cooperative, affect appropriate for age, Medical Decision Making MEDICAL DECISION MAKING Number and Complexity of Problems Differential Diagnosis: [] [facility] Data External documents reviewed: [] My EKG interpretation: [] My CT interpretation: [] My X-ray interpretation: [] My Ultrasound interpretation: [] Decision rules/scores evaluated: [] Discussed with: [] Treatment and Disposition ED Course: Patient presented with left foot injury. The x-ray shows no fracture or dislocation. The patient was given ibuprofen. He was placed on postop shoe. Will discharge patient home follow-up with primary care. The patient was instructed to return to the emergency room if his pain gets worse or any new symptoms. Shared decision making: [] Code status: [] Assessment/Plan 1. Sprain of left foot (S93.602A: Unspecified sprain of left foot, initial encounter) Orders: ibuprofen, 600 mg = 1 tab(s), Tab, Oral, Once, Stop date 02/14/24 16:22:00 EDT, STAT, Start date 02/14/24 16:22:00 EDT, 02/14/24 16:22:00 EDT Post-op Shoe XR Foot 3+ Views Left Medications Administered Given ibuprofen 600 mg Tab, 600 mg, Oral Disposition Plan Patient Discharge Condition Stable Discharge Disposition Discharge home Discharge Prescription List Prescriptions No active prescription medications Follow-up With When Contact Information SALBADOR BOOKER In 3 days 02/17/2024 EDT [address] [place] [address] Business (1) Additional Instructions: Return to the emergency room if your pain gets worse or any new symptoms. Patient Education How to Use a Cast Shoe Foot Sprain Problem List/Past Medical History Ongoing BMI 31.0-31.9,adult Inguinal hernia Kidney stone Reducible left inguinal hernia Smoker Smoker Tobacco use Ureteral stone Historical Candidal balano-posthitis DM (diabetes mellitus) Elevated liver enzymes Major depressive disorder, single episode Uncontrolled diabetes mellitus Procedure/Surgical History Laparoscopy, surgical; repair initial inguinal hernia (05/20/2022), Harris bunionectomy, right (02/27/2015), Harris bunionectomy, left foot (01/02/2015), Hemorrhoidectomy (10/2012), Cholecystectomy, Circumcision, Colonoscopy, Colonoscopy, Extn - Extraction of tooth, Lateral sphincterotomy, removal of ingrown toenail. Medications Inpatient No active inpatient medications Home GlyBURIDE (Eqv-Micronase) 5 mg oral tablet, 5 mg= 1 tab(s), Oral, BID tamsulosin 0.4 mg Cap, 0.4 mg= 1 cap(s), Oral, Daily Allergies metFORMIN (Diarrhea) Social History Alcohol - Denies Alcohol Use, 11/30/2017 Current, Beer, Alcohol use interferes with work or home: No. Drinks more than intended: No. Others hurt by drinking: No. Ready to change: No. Household alcohol concerns: No., 07/26/2018 Substance Abuse - Denies Substance Abuse, 02/15/2011 Current, 09/20/2019 Current, 09/13/2017 Tobacco - High Risk, 05/10/2015 5-9 cigarettes (between 1/4 to 1/2 pack)/day in last 30 days Tobacco Use:. Cigarettes, 02/14/2024 10 or more cigarettes (1/2 pack or more)/day in last 30 days Tobacco Use:. Never Smokeless Tobacco Use:. Cigarettes, 1 per day. Started age 11.0 Years. Yes, 04/27/2022 Family History Cancer: Sister. Diabetes mellitus type 2: Mother. Esophageal cancer: Father. Heart disease: Mother. Lab Results No qualifying data available. Diagnostic Results XR Foot 3+ Views Left (more content not included)... Normal [facility] Comment on above: Result Comment: Elec tronically Signed By: Master Olivo, Reddy H\.br\Date and Time Signed: 02/14/24 16:56 EDT ED Patient Summaryon 024 ED Patient Summary ED Patient Summary [place] [id number] Patient Discharge Instructions Person Information Name: BRIAN TSE Age: 43 Years [facility]: [id number] Arrival Date: 02/14/2024 15:56:45 Discharge Diagnosis: 1:Sprain of left foot Primary Care Physician: SALBADOR BOOKER CNP Provider Information Primary Provider: Reddy Thao M.D. Advanced Laminating Machine Operator Helper:None The exam and treatment you received in the Emergency Department were for an urgent problem and are not intended as complete care. It is important that you follow up with a doctor, nurse practitioner, or physician?s orthopaedic physician assistant for ongoing care. If your symptoms become worse or you do not improve as expected and you are unable to reach your usual health care provider, you should return to the Emergency Department. We are available 24 hours a day. BRIAN TSE has been given the following list of patient education materials, prescriptions and follow-up instructions: Follow-up Instructions: With: Address: When: SALBADOR BOOKER [address] [place] [address] [phone] [facility] (1) In 3 days 02/17/2024 Comments: Return to the emergency room if your pain gets worse or any new symptoms. In the event that this physician does not participate in your insurance network, please consult with your insurance company to find a nearby participating provider. Patient Education Materials: How to Use a Cast Shoe; Foot Sprain A MESSAGE TO ALL PATIENTS REGARDING OPIOIDS PRESCRIPTION OPIOIDS: WHAT YOU NEED TO KNOW Prescription opioids can be used to help relieve [id number]-gytnbw pain and are often prescribed following a surgery or injury, or for certain health conditions. These medications can be an important part of the treatment but also come with serious risks. It is important to work with your healthcare provider to make sure you are getting the safest, most effective care. WHAT ARE THE RISKS AND SIDE EFFECTS OF OPIOID USE? Prescription opioids carry serious risks of addiction and overdose, especially with prolonged use. An opioid overdose, often marked by slowed breathing, can cause sudden . The use of prescription opioids can have a number of side effects as well, even when taken as directed: ? Tolerance?meaning you might need to take more of the medication for the same pain relief ? Physical dependence?meaning you have symptoms of withdrawal when a medication is stopped ? Increased sensitivity to pain ? Constipation ? Nausea, vomiting, and dry mouth ? Sleepiness and dizziness ? Confusion ? Depression ? Low levels of testosterone that can result in lower sex drive, energy, and strength ? Itching and sweating RISKS ARE GREATER WITH: ? History of drug misuse, substance use disorder, or overdose ? Mental health conditions (such as depression or anxiety) ? Sleep apnea ? Older age (65 years and older) ? Avoid alcohol while taking prescription opioids. Also, unless specifically advised by your health care provider, medications to avoid include: ? Benzodiazepines (such as Xanax or Valium) ? Muscle relaxants (such as Soma or Flexeril) ? Hypnotics (such as Ambien or Lunesta) ? Other prescription opioids KNOW YOUR OPTIONS Talk to your health care provider about ways to manage your pain that don?t involve prescription opioids. Some of these options may actually work better and have fewer risks and side effects. Options may include: ? Pain relievers such as acetaminophen, ibuprofen, and naproxen ? Some medication that are also used for depression or seizures ? Physical therapy and exercise ? Cognitive behavioral therapy, a psychological, goal-directed approach, in which patients learn how to modify physical, behavioral, and emotional triggers of pain and stress. IF YOU ARE PRESCRIBED OPIOIDS FOR PAIN: ? Never take opioids in greater amounts or more often than prescribed. ? Follow up with your primary health care provider. o Work together to create a plan on how to manage your pain. o Talk about ways to help manage your pain that don?t involve prescription opioids. o Talk about any and all concerns and side effects. ? Help prevent misuse and abuse o Never sell or share prescription opioids. o Never use another person?s prescription opioids. ? Store prescription opioids in a secure place and out of reach of others (this may include visitors, children, friends, and family). ? Safely dispose of unused prescription opioids: Find your community drug take-back program or your pharmacy mail-back program, or flush them down the toilet, following guidance from the Food and Drug Administration (www.fda.gov/Drugs/Reso urcesForYou). ? Visit www.cdc.gov/drugoverdos e to learn about the risks of opioids abuse and overdose. ? If you believe you may be struggling with addiction, tell you (more content not included)... Normal [facility] XR Foot 3+ Views Lefton 01-23 XR Foot 3+ Views Left Exam Date/Time: 02/14/2024 16:36 EDT Reason for Exam: Pain, Traumatic Report IMPRESSION: No acute osseous findings. EXAMINATION/TECHNIQUE: XR Foot 3+ Views Left HISTORY: Left foot pain. COMPARISON: 07/27/2018. RESULT: No acute fracture. No dislocation. Postsurgical changes near the first MTP joint, grossly unchanged from prior. Bipartite tibial hallux sesamoid, unchanged. Joint space of the foot appear maintained. Small posterior calcaneal enthesophyte. Mild soft tissue edema. No other significant abnormality. Ordering Provider: Reddy Thao FINAL REPORT Dictated: 02/14/2024 4:46 pm Hamilton Finney MD Signed (Electronic Signature): 02/14/2024 4:46 pm Signed by: Hamilton Finney MD Transcribed by: JOSE MANUEL Technologist: BRIAN Technical Comments Radiation Dose: Ka,r in mGy = . DAP = . Normal [facility] Glucose Poct Glucometerson 0 11-30-2022 Glucose [Mass/Vol] 155 mg/dL Normal [facility] Comment on above: Result Comment: [facility] Glucose Reference Range is dependent on time and content of last meal. Glucose of more than 200 mg/dL in a nonstressed, ambulatory subject supports the diagnosis of Diabetes Mellitus. PERFORMED BY: [facility] [address] [place] [place] [address] PATHOLOGIST MANAGER [employer]METICS IGLESIA SANCHEZ M.D. Performed By: #### G STIVEN #### Point of Care testing , Roland 11-30-2022 L --- Specimen: [id number] Received: 11/30/22 Status: JAGDISH Belcher Num: [id number] Spec Type: Surgical Subm Dr: Evdin Colunga MD Tissues: A Colon Biopsy (ASCENDING POLYP) Procedures: HE/2, Gross/Micro L4 Age/ Patient Sex Location Account Attending Physician Brian Tse /[facility] [id number] Edvin Colunga MD SPEC NUM: [id number] RECD: 11/30/22 STATUS: JAGDISH BELCHER NUM: [id number] REINA: 11/30/22- [facility] DR: Edvin Colunga MD ENTERED: 11/30/[address] [facility] DR: REBECA TYPE: Surgical DEPT: S ORDERED: HE/2, Gross/Micro [...] support the above pathologic diagnosis. CPT Codes 85771 Specimen: [id number] Received: 11/30/22-122 Status: JAGDISH Ye Num: [id number] Spec Type: Surgical Subm Dr: Edvin Colunga MD Tissues: A Colon Biopsy (ASCENDING POLYP) Procedures: Jami NICHOLAS/Jakob L4 Patient: Brian Tse [id number] (Continued) Signed (signature on file) Daily Quarles MD 12/01/22 6723 [facility] CBC AUTO DIFFon 10-28-2022 BASO # 0.1 103/ul Normal 0.0-0.[address] [facility] Comment on above: Performed By: #### C BC #### [facility] [address] [address] [address] Yash Mckeon Basophils/100 WBC (Bld) 0.8 % Normal 0.2-2.[address] [facility] Comment on above: Performed By: #### C BC #### [facility] [address] [address] [address] Yash Mckeon EO # 0.4 103/ul Normal 0.0-0.[address] [facility] Comment on above: Performed By: #### C BC #### [facility] [address] [place] [address] Dr. Yash Mckeon Eosinophils/100 WBC (Bld) 3.3 % Normal 0.9-7.[address] [facility] Comment on above: Performed By: #### C BC #### [facility] [address] [place] [address] Dr. Yahs Mckeon Erythrocyte distribution width (RBC) [Ratio] 14.0 % Normal 11.0-15.[address] [facility] Comment on above: Performed By: #### C BC #### [facility] [address] [place] [address] Dr. Yash Mckeon Hematocrit (Bld) [Volume fraction] 45.4 % Normal 42.0-54.[address] [facility] Comment on above: Performed By: #### C BC #### [facility] [address] [place] [address] Dr. Yash Mckeon Hemoglobin (Bld) [Mass/Vol] 14.8 g/dL Normal 14.0-18.[address] [facility] Comment on above: Performed By: #### C BC #### [facility] [address] [place] [address] Dr. Yash Mckeon IG # 0.04 10e3/ul Critically high 0.00-0.03 [facility] Comment on above: Performed By: #### C BC #### [facility] [address] [place] [address] Dr. Yash Mckeon IG % 0.4 % Normal 0.0-0.[address] [facility] Comment on above: Performed By: #### C BC #### [facility] [address] [place] [address] Dr. Yash Mckeon LYMPH # 2.8 103/ul Normal 1.2-3.[address] [facility] Comment on above: Performed By: #### C BC #### [facility] [address] [place] [address] Dr. Yash Mckeon Lymphocytes/100 WBC (Bld) 25.3 % Normal 20.5-60.[address] [facility] Comment on above: Performed By: #### C BC #### [facility] [address] [place] [address] Dr. Yash Mckeon MANUAL DIFF REQ NO Normal [facility] Comment on above: Performed By: #### C BC #### [facility] [address] [place] [address] Dr. Yash Mckeon MCH (RBC) [Entitic mass] 28.6 pg Normal 25.9-34.[address] [facility] Comment on above: Performed By: #### C BC #### [facility] [address] [place] [address] Dr. Yash Mkceon MCHC (RBC) [Mass/Vol] 32.6 g/dL Normal 29.9-35.[address] [facility] Comment on above: Performed By: #### C BC #### [facility] [address] [place] [address] Dr. Yash Mckeon MCV (RBC) [Entitic vol] 87.8 fL Normal 80.0-94.[address] [facility] Comment on above: Performed By: #### C BC #### [facility] [address] [place] [address] Dr. Yash Mckeon MONO # 1.0 103/ul Critically high 0.3-0.8 [facility] Comment on above: Performed By: #### C BC #### [facility] [address] [place] [address] Dr. Yash Mckeon Monocytes/100 WBC (Bld) 8.6 % Normal 1.7-12.[address] [facility] Comment on above: Performed By: #### C BC #### [facility] [address] [place] [address] Dr. Yash Mckeon NEUT # 6.9 103/ul Critically high 1.4-6.5 [facility] Comment on above: Performed By: #### C BC #### [facility] [address] [place] [address] Dr. Yash Mckeon Neutrophils/100 WBC (Bld) 61.6 % Normal 43.0-75.[address] [facility] Comment on above: Performed By: #### C BC #### [facility] [address] [place] [address] Dr. Yash Mckeon Platelet mean volume (Bld) [Entitic vol] 10.0 fL Normal 9.5-13.[address] [facility] Comment on above: Performed By: #### C BC #### [facility] [address] [place] [address] Dr. Yash Mckeon PLT 250 103/ul Normal 150-[address] [facility] Comment on above: Performed By: #### C BC #### [facility] [address] [place] [address] Dr. Yash Mckeon RBC 5.17 106/ul Normal 4.70-6.[address] [facility] Comment on above: Performed By: #### C BC #### [facility] [address] [place] [address] Dr. Yash Mckeon WBC 11.2 103/ul Critically high 4.0-11.0 [facility] Comment on above: Performed By: #### C BC #### [facility] [address] [place] [address] Dr. Yash Mckeon POINT OF CARE GLUCOSEon Glucose [Mass/Vol] 219 mg/dL Critically high 74-106 [facility] Comment on above: Performed By: #### P OCGLUC #### [facility] [address] [place] [address] Dr. Yash Mckeon PROF CHEM 8 (BAS METB)on Anion gap [Moles/Vol] 11.8 mmol/L Normal [facility] Comment on above: Performed By: #### B MP #### [facility] [address] [address] [address] Yash Mckeon Calcium [Mass/Vol] 8.6 mg/dL Normal 8.5-10.1 [facility] Comment on above: Performed By: #### B MP #### [facility] [address] [address] [address] Yash Mckeon Chloride [Moles/Vol] 101 mmol/L Normal 98-[address] [facility] Comment on above: Performed By: #### B MP #### [facility] [address] [place] [address] Dr. Yash Mckeon CO2 [Moles/Vol] 28.0 mmol/L Normal 21.0-32.0 [facility] Comment on above: Performed By: #### B MP #### [facility] [address] [address] [address] Yash Mckeon Creatinine [Mass/Vol] 1.13 mg/dL Normal 0.70-1.[address] [facility] Comment on above: Performed By: #### B MP #### [facility] [address] [place] [address] Dr. Yash Mckeon EGFR-AF IRANIAN >60 Normal >=60 [facility] Comment on above: Performed By: #### B MP #### [facility] [address] [address] [address] Yash Mckeon EGFR-NON AF IRANIAN >60 Normal >=[address] [facility] Comment on above: Performed By: #### B MP #### [facility] [address] [address] [address] Yash Mckeon Glucose [Mass/Vol] 196 mg/dL Critically high 74-106 [facility] Comment on above: Performed By: #### B MP #### [facility] [address] [place] [address] Dr. Yash Mckeon Potassium [Moles/Vol] 3.8 mmol/L Normal 3.5-5.[address] [facility] Comment on above: Performed By: #### B MP #### [facility] [address] [address] [address] Yash Mckeon Sodium [Moles/Vol] 137 mmol/L Normal 136-145 [facility] Comment on above: Performed By: #### B MP #### [facility] [address] [address] [address] Yash Mckeon Urea nitrogen [Mass/Vol] 14.0 mg/dL Normal 7.0-18.[address] [facility] Comment on above: Performed By: #### B MP #### [facility] [address] [address] [address] Yash Mckeon Urea nitrogen/Creatinine [Mass ratio] 12.4 mg/mg Normal [facility] Comment on above: Performed By: #### B MP #### [facility] [address] [place] [address] Dr. Yash Mckeon PROTIMEon 10-28-2022 INR Coag (PPP) [Relative time] {INR} Normal [facility] Comment on above: Performed By: #### P OCGLUC #### [facility] [address] [place] [address] Dr. Yash Mckeon INR GUIDELINES SEE BELOW Normal [facility] Comment on above: Result Comment: ZAN RED INR: 2.0 - 3.0 CONDITIONS NOT LISTED BELOW 2.5 - 3.5 FOR PROSTHETIC HEART VALVE REPLACEMENT 2.5 - 3.5 RECURRENT THROMBOSIS Performed By: #### P OCGLUC #### [facility] [address] [place] [address] Dr. Yash Mckeon PT Coag (PPP) [Time] 9.8 s Normal 9.0-11.6 [facility] Comment on above: Performed By: #### P OCGLUC #### [facility] [address] [place] [address] Dr. Yash Mckeon PTTon 10-28-2022 aPTT Coag (Bld) [Time] 30.5 s Normal 22.3-36.2 [facility] Comment on above: Performed By: #### P OCGLUC #### [facility] [id number] Yash Mckeon XR KUB 1 VIEWon 10-28-2022 XR KUB [...] by: SABI FREEMAN Date: 2022-10-28 08:[address] [facility] XR KUB 1 VIEWon 10-25-2022 XR KUB [...] by: JUANITA DYKES Date: 2022-10-25 06:[address] [facility] XR ribs RT min 3V w CXR1V*on 10-21-2022 XR ribs RT min 3V w CXR1V* [facility] Main [place] [address] [place] [address] XRay Report Signed Patient: Brian Tse MR#: [id number] : 1980 Acct:[id number] Age/Sex: 41 / M ADM Date: 10/21/22 [facility] Type[facility] Attending Dr: Domonique Myers APRN Copies to: [...] Linda Sierra M.D.10/21/2022 2:10 PM Dictation Location: [place] [address] Transcribed By: [facility] 10/21/22 1410 Dictated By: Linda Sierra MD 10/21/22 1406 Signed By: 10/21/22 1410 [facility] CHEMISTRYOrdered By: Lab ROP User on 05-20-2022 Glucose [Mass/Vol] 173 mg/dL High 55 - 99 mg/dL [facility] POC Subsection Comment on above: Result Comment: Dayanara alcantar RN/ POC Device SN [id number] Invalid Interpretation Code [facility] Subsection POC User ID [id number] Invalid Interpretation Code [facility] Subsection POC Username CHINEDU POSADAS Invalid Interpretation Code [facility] Subsection CHEMISTRYOrdered By: SYSTEM SYSTEM on 05-13-2022 Anion gap [Moles/Vol] 15 mmol/L Normal 6 - 16 mEq/L [facility] Remisol Chloride [Moles/Vol] 102 mmol/L Normal 101 - 1 11 mmol/L [facility] Remisol CO2 [Moles/Vol] 22 mmol/L Normal 21 - 31 mmol/L [facility] Remisol Creatinine [Mass/Vol] 1.1 mg/dL Normal 0.5 - 1.3 mg/dL [facility] Remisol GFR/1.73 sq M.predicted among blacks MDRD (S/P/Bld) [Vol rate/Area] mL/min/1.73 m2 Normal >=59mL/min/1 .73 m2 [facility] Chem S GFR/1.73 sq M.predicted among non-blacks MDRD (S/P/Bld) [Vol rate/Area] mL/min/1.73 m2 Normal >=59mL/min/1 .73 m2 [facility] Chem S Glucose [Mass/Vol] 171 mg/dL Normal 55 - 199 mg/dL [facility] Remisol Potassium [Moles/Vol] 3.7 mmol/L Normal 3.5 - 5.3 mmol/L [facility] Remisol Sodium [Moles/Vol] 135 mmol/L Normal 135 - 145 mmol/L [facility] Urea nitrogen [Mass/Vol] 10 mg/dL Normal 5 - 21 mg/dL [facility] HEMATOLOGYOrdered By: Scarlett Nicholson on 05-13-2022 Erythrocyte distribution width (RBC) [Ratio] 13.9 % Normal 10.9 - 14.2 % [facility] HemeAutoSS Hematocrit (Bld) [Volume fraction] 47.7 % Normal 37.7 - 49.0 % [facility] HemeAutoSS Hemoglobin (Bld) [Mass/Vol] 16.5 g/dL Normal 13.5 - 17.5 gm/dL [facility] HemeAutoSS MCH (RBC) [Entitic mass] 29.3 pg Normal 27.0 - 34.0 pg [facility] HemeAutoSS MCHC (RBC) [Mass/Vol] 34.5 g/dL Normal 31.4 - 36.0 gm/dL [facility]eAutoSS MCV (RBC) [Entitic vol] 84.9 fL Normal 80.0 - 100.0 fL [facility] HemeAutoSS Platelet mean volume (Bld) [Entitic vol] 8.5 fL Normal 6.4 - 10.8 fL [facility] HemeAutoSS Platelets (Bld) [#/Vol] 210.0 E9/L Normal 150.0 - 500.0 E9/L [facility] HemeAutoSS RBC (Bld) [#/Vol] 5.6 E12/L Normal 4.3 - 5.9 E12/L [facility] HemeAutoSS WBC corrected for nucl RBC Auto (Bld) [#/Vol] 9.1 E9/L Normal 4.0 - 11.0 E9/L [facility] HemeAutoSS CALCULI, URINARYon 2 2,8 Dihydroxyadenine Normal [facility] Comment on above: Performed By: #### P OCGLUC #### [facility] [address] [place], [place] [address] Dr. Yash Mckeon Ammonium Acid Urate Normal [facility] Comment on above: Performed By: #### P OCGLUC #### [facility] [address] [address] [address] Yash Mckeon Bilirubin Ql (U) Normal [facility] Comment on above: Performed By: #### P OCGLUC #### [facility] [address] [address] [address] Yash Mckeon Ca Oxalate Dihydrate Normal [facility] Comment on above: Performed By: #### P OCGLUC #### [facility] [address] [address] [address] Yash Mckeon CaHPO4 (Brushite) Raysal [facility] Comment on above: Performed By: #### P OCGLUC #### [facility] [address] [address] [address] Yash Mckeon Calcium Bilirubinate Normal [facility] Comment on above: Performed By: #### P OCGLUC #### [facility] [address] [address] [address] Yash Mckeon Calcium Carbonate [facility] Comment on above: Performed By: #### P OCGLUC #### [facility] [address] [address] [address] Yash Mckeon Calcium Oxalate Monohydrate [facility] Comment on above: Performed By: #### P OCGLUC #### [facility] [address] [address] [address] Yash Mckeon Calcium Palmitate Normal [facility] Comment on above: Performed By: #### P OCGLUC #### [facility] [address] [address] [address] Yash Mckeon Calcium Phosphate Normal [facility] Comment on above: Performed By: #### P OCGLUC #### [facility] [address] [address] [address] Yash Mckeon Calcium Stearate Normal [facility] Comment on above: Performed By: #### P OCGLUC #### [facility] [address] [address] [address] Yash Mckeon Carbonate Apatite Normal [facility] Comment on above: Performed By: #### P OCGLUC #### [facility] [address] [address] [address] Yash Mckeon Cellular Material [facility] Comment on above: Performed By: #### P OCGLUC #### [facility] [address] [address] [address] Yash Mckeon Cholesterol [facility] Comment on above: Performed By: #### P OCGLUC #### [facility] [address] [address] [address] Yash Mckeon Color (U) Quigley Normal [facility] Comment on above: Performed By: #### P OCGLUC #### [facility] [address] [address] [address] Yash Mckeon Comment Comment [facility] Comment on above: Result Comment: Lolly talline substances normally associated with human calculi were not identified. Specimen is consistent with organic material. Insufficient sample to perform additional, confirmatory, or reference testing. Performed By: #### P OCGLUC #### [facility] [address] [address] [address] Yash Mckeon Comment [facility] Comment on above: Performed By: #### P OCGLUC #### [facility] [address] [address] [address] Yash Mckeon Comment: Comment [facility] Comment on above: Result Comment: Diego gage questions regarding Calculi Analysis contact [employer] at: [phone]. Performed By: #### P OCGLUC #### [facility] [address] [address] [address] Yash Mckeon Composition Comment [facility] Comment on above: Result Comment: Plea se see comment Performed By: #### P OCGLUC #### [facility] [address] [address] [address] Yash Mckeon Cystine [facility] Comment on above: Performed By: #### P OCGLUC #### [facility] [address] [address] [address] Yash Mckeon Disclaimer: Comment [facility] Comment on above: Result Comment: This test was developed and its performance characteristics determined by [facility]. It has not been cleared or approved by the Food and Drug Administration. Performed By: #### P OCGLUC #### [facility] [address] [address] [address] Yash Mckeon Dried Blood [facility] Comment on above: Performed By: #### P OCGLUC #### [facility] [address] [address] [address] Yash Mckeon Drug or Metabolite Normal [facility] Comment on above: Performed By: #### P OCGLUC #### [facility] [address] [address] [address] Yash Mckeon Hydroxyapatite [facility] Comment on above: Performed By: #### P OCGLUC #### [facility] [address] [address] [address] Yash Mckeon Mg NH4 PO4 (Struvite) [facility] Comment on above: Performed By: #### P OCGLUC #### [facility] [address] [place] [address] Dr. Yash Mckeon MgHPO4 (Newberyite) [facility] Comment on above: Performed By: #### P OCGLUC #### [facility] [address] [address] [address] Yash Mckeon Other component(s) [facility] Comment on above: Performed By: #### P OCGLUC #### [facility] [address] [address] [address] Yash Mckeon PDF . [facility] Comment on above: Performed By: #### P OCGLUC #### [facility] [address] [address] [address] Yash Mckeon Photo TNP [facility] Comment on above: Result Comment: Test not performed No photo available Performed By: #### P OCGLUC #### [facility] [address] [address] [address] Yash Mckeon Please note: Comment [facility] Comment on above: Result Comment: Calc terry report will follow via computer, mail or electrical instrument technician delivery. Performed By: #### P OCGLUC #### [facility] [address] [address] [address] Yash Mckeon Size <1 [facility] Comment on above: Result Comment: Too small to measure. Performed By: #### P OCGLUC #### [facility] [address] [address] [address] Yash Mckeon Sodium Acid Urate [facility] Comment on above: Performed By: #### P OCGLUC #### [facility] [address] [address] [address] Yash Mckeon Source Comment [facility] Comment on above: Result Comment: Not provided Performed By: #### P OCGLUC #### [facility] [address] [address] [address] Yash Mckeon Triamterene [facility] Comment on above: Performed By: #### P OCGLUC #### [facility] [address] [place] [address] Dr. Yash Mckeon Uric Acid [facility] Comment on above: Performed By: #### P OCGLUC #### [facility] [address] [address] [address] Yash Mckeon Uric Acid Dihydrate [facility] Comment on above: Performed By: #### P OCGLUC #### [facility] [address] [address] [address] Yash Mckeon Weight <1 [facility] [facility] Comment on above: Result Comment: Too small to weigh Performed By: #### P OCGLUC #### [facility] [address] [address] [address] Yash Mckeon Xanthine [facility] Comment on above: Performed By: #### P OCGLUC #### [facility] [address] [address] [address] Yash Mckeon CBC AUTO DIFFon 04-04-2022 BASO # 0.1 103/ul Normal 0.0-0.[address] [facility] Comment on above: Performed By: #### C BC #### [facility] [address] [address] [address] Yash Mckeon Basophils/100 WBC (Bld) 0.9 % Normal 0.2-2.[address] [facility] Comment on above: Performed By: #### C BC #### [facility] [address] [address] [address] Yash Mckeon EO # 0.4 103/ul Normal 0.0-0.[address] [facility] Comment on above: Performed By: #### C BC #### [facility] [address] [address] [address] Yash Mckeon Eosinophils/100 WBC (Bld) 3.3 % Normal 0.9-7.[address] [facility] Comment on above: Performed By: #### C BC #### [facility] [address] [place] [address] Dr. Yash Mckeon Erythrocyte distribution width (RBC) [Ratio] 13.8 % Normal 11.0-15.[address] [facility] Comment on above: Performed By: #### C BC #### [facility] [address] [place] [address] Dr. Yash Mckeon Hematocrit (Bld) [Volume fraction] 48.7 % Normal 42.0-54.[address] [facility] Comment on above: Performed By: #### C BC #### [facility] [address] [place] [address] Dr. Yash Mckeon Hemoglobin (Bld) [Mass/Vol] 16.1 g/dL Normal 14.0-18.[address] [facility] Comment on above: Performed By: #### C BC #### [facility] [address] [address] [address] Yash Mckeon IG # 0.06 10e3/ul Critically high 0.00-0.03 [facility] Comment on above: Performed By: #### C BC #### [facility] [address] [place] [address] Dr. Yash Mckeon IG % 0.5 % Normal 0.0-0.[address] [facility] Comment on above: Performed By: #### C BC #### [facility] [address] [place] [address] Dr. Yash Mckeon LYMPH # 4.1 103/ul Critically high 1.2-3.8 [facility] Comment on above: Performed By: #### C BC #### [facility] [address] [place] [address] Dr. Yash Mckeon Lymphocytes/100 WBC (Bld) 33.3 % Normal 20.5-60.[address] [facility] Comment on above: Performed By: #### C BC #### [facility] [address] [place] [address] Dr. Yash Mckeon MANUAL DIFF REQ NO Normal [facility] [place] Comment on above: Performed By: #### C BC #### [facility] [address] [place] [address] Dr. Yash Mckeon MCH (RBC) [Entitic mass] 29.0 pg Normal 25.9-34.[address] [facility] Comment on above: Performed By: #### C BC #### [facility] [address] [place] [address] Dr. Yash Mckeon MCHC (RBC) [Mass/Vol] 33.1 g/dL Normal 29.9-35.[address] [facility] Comment on above: Performed By: #### C BC #### [facility] [address] [place] [address] Dr. Yash Mckeon MCV (RBC) [Entitic vol] 87.6 fL Normal 80.0-94.[address] [facility] Comment on above: Performed By: #### C BC #### [facility] [address] [place] [address] Dr. Yash Mckeon MONO # 1.0 103/ul Critically high 0.3-0.8 [facility] [place] Comment on above: Performed By: #### C BC #### [facility] [address] [place] [address] Dr. Yash Mckeon Monocytes/100 WBC (Bld) 8.2 % Normal 1.7-12.0 [facility] Comment on above: Performed By: #### C BC #### [facility] [address] [place] [address] Dr. Yash Mckeon NEUT # 6.6 103/ul Critically high 1.4-6.5 [facility] [place] Comment on above: Performed By: #### C BC #### [facility] [address] [address] [address] Yash Mckeon Neutrophils/100 WBC (Bld) 53.8 % Normal 43.0-75.[address] [facility] Comment on above: Performed By: #### C BC #### [facility] [address] [place] [address] Dr. Yash Mckeon Platelet mean volume (Bld) [Entitic vol] 10.5 fL Normal 9.5-13.5 [facility] Comment on above: Performed By: #### C BC #### [facility] [address] [place] [address] Dr. Yash Mckeon PLT 260 103/ul Normal 150-450 [facility] Comment on above: Performed By: #### C BC #### [facility] [address] [place] [address] Dr. Yash Mckeon RBC 5.56 106/ul Normal 4.70-6.10 [facility] Comment on above: Performed By: #### C BC #### [facility] [address] [place] [address] Dr. Yash Mckeon WBC 12.2 103/ul Critically high 4.0-11.0 [facility] Comment on above: Performed By: #### C BC #### [facility] [address] [place] [address] ABD/PELVIS WO CONon [...] JUANITA DYKES Date: 2022-04-04 08:43 Normal [facility] CULTURE URINEon 04-04-2022 CULTURE URINE Culture Observations : LIGHT GROWTH OF MIXED SKIN BRIANNA. NO POTENTIAL PATHOGENS SEEN. Normal [facility] Comment on above: Performed By: #### P OCGLUC #### [facility] [address] [place] [address] Dr. Yash Mckeon ER URINE PROFILEon 2 Bilirubin Ql (U) Negative Normal NEGATIVE [facility] Comment on above: Performed By: #### E ALLIE UMICRO #### [facility] [address] [place] [address] Dr. Yash Mckeon Clarity (U) SL CLOUDY Abnormal CLEAR [facility] Comment on above: Performed By: #### E RUR UMICRO #### [facility] [address] [place] [address] Dr. Yash Mckeon Color (U) BROWN Abnormal YELLOW [facility] Comment on above: Performed By: #### E RUR UMICRO #### [facility] [address] [place] [address] Dr. Yash Mckeon ERUAHD A micrscopic examination will be performed if indicated. Normal [facility] Comment on above: Performed By: #### SUNIL STEPHENSRO #### [facility] [address] [address] [address] Yash Mckeon Glucose Ql (U) 100 mg/dl Abnormal NEGATIVE [facility] Comment on above: Performed By: #### SUNIL STEPHENSRO #### [facility] [address] [place] [address] Dr. Yash Mckeon Hemoglobin Ql (U) LARGE Abnormal NEGATIVE [facility] Comment on above: Performed By: #### LYN STEPHENSICRO #### [facility] [address] [place] [address] Dr. Yash Mckeon Ketones Ql (U) TRACE Abnormal NEGATIVE [facility] Comment on above: Performed By: #### Vincenzo KELLEY UMICRO #### [facility] [address] [place] [address] Dr. Yash Mckeon LEUKOCYTES Negative Normal NEGATIVE [facility] Comment on above: Performed By: #### SUNIL STEPHENSRO #### [facility] [address] [place] [address] Dr. Yash Mckeon Nitrite Ql (U) Positive Abnormal NEGATIVE [facility] Comment on above: Performed By: #### SUNIL STEPHENSRO #### [facility] [address] [place] [address] Dr. Yash Mckeon pH (U) 5.0 [pH] Normal 5-9 [facility] Comment on above: Performed By: #### SUNIL STEPHENSRO #### [facility] [address] [place] [address] Dr. Yash Mckeon Protein (U) [Mass/Vol] 100 mg/dL Abnormal NEGATIVE/ TRACE [facility] Comment on above: Performed By: #### SUNIL STEPHENSRO #### [facility] [address] [place] [address] Dr. Yash Mckeon SPEC GRAVITY >=1.030 Abnormal 1.005-<=1.02 5 [facility] Comment on above: Performed By: #### SUNIL STEPHENSRO #### [facility] [address] [place] [address] Dr. Yash Mckeon UR MICRO IND INDICATED Normal [facility] Comment on above: Performed By: #### KALEIGH STEPHENS #### [facility] [address] [place] [address] Dr. Yash Mckeon Urobilinogen Qn (U) 1.0 {Nathaniel'U}/dL Normal 0.2 - 1. 0 [facility] Comment on above: Performed By: #### KALEIGH STEPHENS #### [facility] [address] [place] [address] Dr. Yash Mckeon PROF CHEM 8 (BAS METB)on Anion gap [Moles/Vol] 16.0 mmol/L Normal [facility] Comment on above: Performed By: #### B MP #### [facility] [address] [place] [address] Dr. Yash Mckeon Calcium [Mass/Vol] 8.5 mg/dL Normal 8.5-10.1 [facility] Comment on above: Performed By: #### B MP #### [facility] [address] [place] [address] Dr. Yash Mckeon Chloride [Moles/Vol] 102 mmol/L Normal 98-107 [facility] Comment on above: Performed By: #### B MP #### [facility] [address] [place] [address] Dr. Yash Mckeon CO2 [Moles/Vol] 23.6 mmol/L Normal 21.0-32.0 [facility] Comment on above: Performed By: #### B MP #### [facility] [address] [place] [address] Dr. Yash Mckeon Creatinine [Mass/Vol] 1.17 mg/dL Normal 0.70-1.[address] [facility] Comment on above: Performed By: #### B MP #### [facility] [address] [place] [address] Dr. Yash Mckeon EGFR-AF IRANIAN >60 Normal >=60 [facility] Comment on above: Performed By: #### B MP #### [facility] [address] [place] [address] Dr. Yash Mckeon EGFR-NON AF IRANIAN >60 Normal >=[address] [facility] Comment on above: Performed By: #### B MP #### [facility] [address] [place] [address] Dr. Yash Mckeon Glucose [Mass/Vol] 234 mg/dL Critically high 74-106 [facility] Comment on above: Performed By: #### B MP #### [facility] [address] [place] [address] Dr. aYsh Mckeon Potassium [Moles/Vol] 3.6 mmol/L Normal 3.5-5.[address] [facility] Comment on above: Performed By: #### B MP #### [facility] [address] [place] [address] Dr. Yash Mckeon Sodium [Moles/Vol] 138 mmol/L Normal 136-145 [facility] Comment on above: Performed By: #### B MP #### [facility] [address] [place] [address] Dr. Yash Mckeon Urea nitrogen [Mass/Vol] 8.0 mg/dL Normal 7.0-18.[address] [facility] Comment on above: Performed By: #### B MP #### [facility] [address] [place] [address] Dr. Yash Mckeon Urea nitrogen/Creatinine [Mass ratio] 6.8 mg/mg Normal [facility] Comment on above: Performed By: #### B MP #### [facility] [address] [place] [address] Dr. Yash Mckeon URINE MICROSCOPIC ONLYon BACTERIA TRACE Abnormal NONE SEEN [facility] Comment on above: Performed By: #### KALEIGH STEPHENS #### [facility] [address] [place] [address] Dr. Yash Mckeon Bacteria identified Cx Nom (U) INDICATED Normal [facility] Comment on above: Performed By: #### KALEIGH STEPHENS #### [facility] [address] [place] [address] Dr. Yash Mckeon CAST NONE SEEN Normal NONE SEEN [facility] Comment on above: Performed By: #### Vincenzo KELLEY UMICRO #### [facility] [address] [place] [address] Dr. Yash Mckeon Crystals LM Nom (Urine sed) NONE SEEN Normal NONE SEEN [facility] Comment on above: Performed By: #### Vincenzo KELLEY, UMICRO #### [facility] [address] [place] [address] Dr. Yash Mckeon Epithelial cells LM Ql (Urine sed) RARE Normal NONE SEEN /RARE [facility] Comment on above: Performed By: #### Vincenzo KELLEY UMICRO #### [facility] [address] [place] [address] Dr. Yash Mckeon MUCOUS NONE SEEN Normal NONE SEEN [facility] Comment on above: Performed By: #### Vincenzo KELLEY UMICRO #### [facility] [address] [place] [address] Dr. Yash Mckeon RBC 20-50 Abnormal 0-[address] [facility] Comment on above: Performed By: #### Vincenzo KELLEY UMICRO #### [facility] [address] [place] [address] Dr. Yash Mckeon WBC 0-2 Abnormal NONE SEEN [facility] Comment on above: Performed By: #### Vincenzo KELLEY UMICRO #### [facility] [address] [place] [address] Dr. Yash Mckeon CBC AUTO DIFFon 02-17-2022 BASO # 0.1 103/ul Normal 0.0-0.[address] [facility] Comment on above: Performed By: #### C BC #### [facility] [address] [place] [address] Dr. Yash Mckeon Basophils/100 WBC (Bld) 0.7 % Normal 0.2-2.0 [facility] Comment on above: Performed By: #### C BC #### [facility] [address] [place] [address] Dr. Yash Mckeon EO # 0.2 103/ul Normal 0.0-0.[address] [facility] Comment on above: Performed By: #### C BC #### [facility] [address] [place] [address] Dr. Yash Mckeon Eosinophils/100 WBC (Bld) 1.6 % Normal 0.9-7.[address] [facility] Comment on above: Performed By: #### C BC #### [facility] [address] [place] [address] Dr. Yash Mckeon Erythrocyte distribution width (RBC) [Ratio] 14.3 % Normal 11.0-15.[address] [facility] Comment on above: Performed By: #### C BC #### [facility] [address] [place] [address] Dr. Yash Mckeon Hematocrit (Bld) [Volume fraction] 47.1 % Normal 42.0-54.[address] [facility] Comment on above: Performed By: #### C BC #### [facility] [address] [place] [address] Dr. Yash Mckeon Hemoglobin (Bld) [Mass/Vol] 15.7 g/dL Normal 14.0-18.[address] [facility] Comment on above: Performed By: #### C BC #### [facility] [address] [place] [address] Dr. Yash Mckeon IG # 0.05 10e3/ul Critically high 0.00-0.03 [facility] Comment on above: Performed By: #### C BC #### [facility] [address] [place] [address] Dr. Yash Mckeon IG % 0.5 % Normal 0.0-0.[address] [facility] Comment on above: Performed By: #### C BC #### [facility] [address] [place] [address] Dr. Yash Mckeon LYMPH # 2.9 103/ul Normal 1.2-3.[address] [facility] Comment on above: Performed By: #### C BC #### [facility] [address] [place] [address] Dr. Yash Mckeon Lymphocytes/100 WBC (Bld) 29.8 % Normal 20.5-60.[address] [facility] Comment on above: Performed By: #### C BC #### [facility] [address] [place] [address] Dr. Yash Mckeon MANUAL DIFF REQ NO Normal [facility] Comment on above: Performed By: #### C BC #### [facility] [address] [place] [address] Dr. Yash Mckeon MCH (RBC) [Entitic mass] 29.2 pg Normal 25.9-34.[address] [facility] Comment on above: Performed By: #### C BC #### [facility] [address] [place] [address] Dr. Yash Mckeon MCHC (RBC) [Mass/Vol] 33.3 g/dL Normal 29.9-35.[address] [facility] Comment on above: Performed By: #### C BC #### [facility] [address] [place] [address] Dr. Yash Mckeon MCV (RBC) [Entitic vol] 87.7 fL Normal 80.0-94.[address] [facility] Comment on above: Performed By: #### C BC #### [facility] [address] [place] [address] Dr. Yash Mckeon MONO # 0.7 103/ul Normal 0.3-0.[address] [facility] Comment on above: Performed By: #### C BC #### [facility] [address] [place] [address] Dr. Yash Mckeon Monocytes/100 WBC (Bld) 6.8 % Normal 1.7-12.[address] [facility] Comment on above: Performed By: #### C BC #### [facility] [address] [place] [address] Dr. Yash Mckeon NEUT # 5.9 103/ul Normal 1.4-6.5 [facility] Comment on above: Performed By: #### C BC #### [facility] [address] [place] [address] Dr. Yash Mckeon Neutrophils/100 WBC (Bld) 60.6 % Normal 43.0-75.0 [facility] Comment on above: Performed By: #### C BC #### [facility] [address] [place] [address] Dr. Yash Mckeon Platelet mean volume (Bld) [Entitic vol] 10.3 fL Normal 9.5-13.[address] [facility] Comment on above: Performed By: #### C BC #### [facility] [address] [place] [address] Dr. Yash Mckeon PLT 240 103/ul Normal 150-450 [facility] Comment on above: Performed By: #### C BC #### [facility] [address] [place] [address] Dr. Yash Mckeon RBC 5.37 106/ul Normal 4.70-6.10 [facility] Comment on above: Performed By: #### C BC #### [facility] [address] [place] [address] Dr. Yash Mckeon WBC 9.8 103/ul Normal 4.0-11.0 [facility] Comment on above: Performed By: #### C BC #### [facility] [address] [place] [address] Dr. Yash Mcke[facility] SARS-CoV-2 (COVID-19) RNA TALIB+probe Ql (Unsp spec) Not detected Normal NOT DETECTED [facility] Comment on above: Result Comment: When diagnostic [...] for this test is supported by the [employer]'s declaration that [...] used). Performed By: #### C VDTBH #### [facility] [address] [place] [address] Dr. Yash Mckeon D-DIMERon 02-17-2022 D-DIMER <0.19 Normal <=0.[address] [facility] Comment on above: Performed By: #### D DIM #### [facility] [address] [place] [address] Dr. Yash Mckeon D-DIMER COMMENTS SEE BELOW Normal [facility] Comment on above: Result Comment: Incr eases [...] hospitalization. Performed By: #### D DIM #### [facility] [address] [place] [address] Dr. Yash Mckeon PROF CHEM 8 (BAS METB)on Anion gap [Moles/Vol] 13.0 mmol/L Normal [facility] Comment on above: Performed By: #### P OCGLUC #### [facility] [address] [place] [address] Dr. Yash Mckeon Calcium [Mass/Vol] 9.2 mg/dL Normal 8.5-10.1 [facility] Comment on above: Performed By: #### P OCGLUC #### [facility] [address] [place] [address] Dr. Yash Mckeon Chloride [Moles/Vol] 102 mmol/L Normal 98-[address] [facility] Comment on above: Performed By: #### P OCGLUC #### [facility] [address] [place] [address] Dr. Yash Mckeon CO2 [Moles/Vol] 28.2 mmol/L Normal 21.0-32.0 [facility] Comment on above: Performed By: #### P OCGLUC #### [facility] [address] [address] [address] Yash Mckeon Creatinine [Mass/Vol] 1.10 mg/dL Normal 0.70-1.[address] [facility] Comment on above: Performed By: #### P OCGLUC #### [facility] [address] [address] [address] Yash Mckeon EGFR-AF IRANIAN >60 Normal >=60 [facility] Comment on above: Performed By: #### P OCGLUC #### [facility] [address] [address] [address] Yash Mckeon EGFR-NON AF IRANIAN >60 Normal >=[address] [facility] Comment on above: Performed By: #### P OCGLUC #### [facility] [address] [address] [address] Yash Mckeon Glucose [Mass/Vol] 174 mg/dL Critically high 74-106 [facility] Comment on above: Performed By: #### P OCGLUC #### [facility] [address] [address] [address] Yash Mckeon Potassium [Moles/Vol] 4.2 mmol/L Normal 3.5-5.[address] [facility] Comment on above: Performed By: #### P OCGLUC #### [facility] [address] [place] [address] Dr. Yash Mckeon Sodium [Moles/Vol] 139 mmol/L Normal 136-145 [facility] Comment on above: Performed By: #### P OCGLUC #### [facility] [address] [address] [address] Yash Mckeon Urea nitrogen [Mass/Vol] 12.0 mg/dL Normal 7.0-18.[address] [facility] Comment on above: Performed By: #### P OCGLUC #### [facility] [address] [address] [address] Yash Mckeon Urea nitrogen/Creatinine [Mass ratio] 10.9 mg/mg Normal [facility] Comment on above: Performed By: #### P OCGLUC #### [facility] [address] [address] [address] Yash Mckeon TROPONIN, HIGH SENSITIVITYon 02-17-2022 HSTROP <4.0 Normal 4.0-76.[address] [facility] Comment on above: Result Comment: CUT- OFF POINTS HAVE BEEN ESTABLISHED BASED ON THE FOURTH UNIVERSAL DEFINITIONS OF MYOCARDIAL INFARCTION. THE UPPER REFERENCE LIMIT (URL) OF TROPONIN, DEFINED THE 99TH PERCENTILE OF cTnI DISTRIBUTION IN A REFERENCE POPULATION, HAS BEEN CONFIRMED THE DECISION THRESHOLD FOR CA DIAGNOSIS. Performed By: #### P OCGLUC #### [facility] [address] [address] [address] Yash Mckeon XR RIBS RT PA [...] JUANITA DYKES Date: 2022-02-17 15:26 Normal [facility] BASIC METABOLIC PANELon 08-25 Anion gap [Moles/Vol] 17 mmol/L Normal 10 - 20 [facility] Comment on above: Performed By: #### B MP #### [facility] [address] [place] [id number] Calcium [Mass/Vol] 8.7 mg/dL Normal 8.6 - 10.3 [facility] [facility] Comment on above: Performed By: #### B MP #### [facility] [address] [place] [address] Chloride [Moles/Vol] 103 mmol/L Normal 98 - 107 [facility] Comment on above: Performed By: #### B MP #### [facility] [address] [place] [address] Creatinine [Mass/Vol] 0.88 mg/dL Normal 0.50 - 1.30 [facility] Comment on above: Performed By: #### B MP #### [address] [place] [address] GFR- AM. >60 Normal >60 [facility] Comment on above: Result Comment: CALC ULATIONS OF ESTIMATED GFR ARE PERFORMED USING THE MDRD STUDY EQUATION FOR THE IDMS-TRACEABLE CREATININE METHODS. CLIN CHEM 2007;53:766-72 Performed By: #### B MP #### [address] [place] [address] GFR-NON AM. >60 Normal >60 [facility] Comment on above: Performed By: #### B MP #### [address] [place] [address] Glucose [Mass/Vol] 252 mg/dL High 74 - 99 [facility] Comment on above: Performed By: #### B MP #### [address] [place] [address] HCO3 (Bld) [Moles/Vol] 19 mmol/L Low 21 - 32 [facility] Comment on above: Performed By: #### B MP #### [address] [place] [address] Potassium [Moles/Vol] 4.1 mmol/L Normal 3.5 - 5.3 [facility] Comment on above: Performed By: #### B MP #### [address] [place] [address] Sodium [Moles/Vol] 135 mmol/L Low 136 - 145 [facility] Comment on above: Performed By: #### B MP #### [address] [place] [address] Urea nitrogen [Mass/Vol] 13 mg/dL Normal 6 - 23 [facility] Comment on above: Performed By: #### B MP #### [address] [place] [address] GLUCOSE-POCTon 09-05-2020 Glucose [Mass/Vol] 276 mg/dL High 74 - 99 [facility] Comment on above: Performed By: #### Jeffy GUIDO #### [address] [place] [address] History and Physical - Surgi kellie Update [...] Last Updated: 05-Sep-2020 11:26 by Nicky Swartz) [facility] Operative Reports - [place] 09[place]05[place]2020 Operative Reports - [place] PREOPERATIVE INDICATION: Phimosis. PREOPERATIVE DIAGNOSIS: Phimosis. POSTOPERATIVE [...] NICKY SWARTZ MD EST EST DICTATION NUMBER: [id number] INTERNAL JOB NUMBER: [id number] Electronic Signatures: Nicky Swartz) (Signed on 15-Sep-2020 07:34) Authored Unsigned, Draft (SYS GENERATED) (Entered on 06-Sep-2020 07:26) Entered Last Updated: 15-Sep-2020 07:34 by Nicky Swartz) [facility] Order Reconciliationon 09-05 Order Reconciliation Page 1 Discharge Reconciliation Document Reconciliation Type: Discharge requested on behalf of Radha Madrigal (Physician) done by Radha Madrigal ( (Fellow)) Discharge - Reconciliation: 05-Sep-2020 12:55 by: Radha Madrigal (Fellow)) Home Medications EnteredHOME MEDICATIONS AT DISCHARGE [...] be shared with your follow-up providers (doctor, lcpc, physical therapist, etc.). Follow Up with in [...] be shared with your follow-up providers (doctor, lcpc, physical therapist, etc.). Follow Up with in [...] but has not started this yet Normal [facility] Histologyon 09-05-2020 [place] [facility] Name BRIAN TSE Pathologist: CHRIS MACEDO [...] 2.5 x 0.5 x 0.5 cm respectively. Bumboater sections are submitted in 1 cassette. TNB tnb/09/05/2020 [facility] Department of Pathology [address] [place] [address] Normal [facility] Comment on above: Performed By: #### P AH #### [facility] [address] [place] [facility] [address] Preop Checkliston 09-05-2020 Preop Checklist Preop Checklist: Preop Checklist: Arrival [id number] Arrival Time09:42 Procedure TypeCIRCUMCISION Temperature C36.2 degrees C Temperature F97.1 degrees F Heart Rate70 beats per minute Respiratory Rate18 breath per minute Blood Pressure Bvdwfpfe058 mm/Hg Blood Pressure Ptfpdgrnf54 mm/Hg ID Band Onyes Allergy Bandno known [...] Communication: Language / CommunicationEnglish Electronic Signatures: Zainab Lgauna (SUKHJINDER) (Signed 05-Sep-2020 09:48) Authored: Preop Checklist Last Updated: 05-Sep-2020 09:48 by Zainab Laguna) Normal [facility] URINE CULTURE,BACTERIALon URINE CULTURE,BACTERIAL PATIENT: BRIAN TSE LOCATION: [facility] BILL#: [id number] : 82 AGE: SEX: M ORDERED BY: NICKY SWARTZ SOURCE: URINE COLLECTED: 09/05/20 08:16 ANTIBIOTICS AT REINA.: RECEIVED : 09/05/20 11:32 SITE: R E S U L T S URINE CULTURE,BACTERIAL FINAL 09/06/20 07:51 NO SIGNIFICANT GROWTH. Normal [facility] Comment on above: Performed By: #### U RINC #### [facility] [address] [place] [address] CORONAVIRUS 2019, SCREEN ASY MPTOMATICon 09-03-2020 CORONAVIRUS 2019,PCR NOT DETECTED Normal Not Detected [facility] Comment on above: Result Comment: . This [...] patient management decisions. Fact sheet for providers: https://www.fda.gov/media/048340/download Fact sheet for patients: https://www.fda.gov/media/382490/download This test has received FDA Emergency Use Authorization (EUA) and has been verified by [facility] ([facility]). This test is only authorized for the duration of time that circumstances exist to justify the authorization of the emergency use of in vitro diagnostic tests for the detection of SARS-CoV-2 virus and/or diagnosis of COVID-19 infection under section 564(b)(1) of the Act, 21 U.S.C. 360bbb-3(b)(1), unless the authorization is terminated or revoked sooner. [facility] is certified under CLIA-88 as qualified to perform high complexity testing. Testing is performed in the [facility] laboratories located at [address] [place] [address]. Performed By: #### C OVSC #### [address] [place] [address] Lab Specimen Source Nasal, Nasopharyngeal Normal [facility] Comment on above: Performed By: #### C OVSC #### [address] [place] [address] Covid 19 Resultson Covid 19 Results NEGATIVE COVID-[address] [...] You may also be contacted by the [facility] to see if any of your close [...] or Naproxen (Aleve) can also be used. Wpgk-fpl-epzkuig cough and cold medicines can be used according to the instructions on the package. Some yxdb-pjq-vrlwfnf medicines also contain acetaminophen. Make sure you [...] water are not available, use alcohol-based hand neuropathologist. Avoid touching your eyes, nose, and mouth [...] a total of 10 days. Additional resources: [facility] COVID Hotline at 2-929-7ERPGAP ( ). COVID-19 Careline at (availabl e 24 hours per day, seven days a week if you or a loved one is experiencing anxiety related to the coronavirus pandemic). Clinical research opportunities: is conducting research studies to develop better testing and treatments for COVID. Do you want any information on how to participate Call [phone]. Websites: hospitals.org or www.CDC.gov Follow My Health / My UHCare (for other test results): Revised 06/10/2020 Electronic Signatures: Satinder Rajan (ADMIN) (Signature pending) Authored Last Updated: 03-Sep-2020 21:24 by Satinder Rajan (ADMIN) Normal [facility] CNOVon 10-14-2017 CNOV Office Visit (LOORRM) JOSE A REID,BRIAN Winters ([id number]) 1980 [facility] Department[facility]/14/17 11:00 AM NAHOMY SHARP) LOORRM During your visit today, we recorded [...] 60 tabletRfl: 1 CONSULT TO PHYSICAL THERAPY [9066] Order #: [id number]: 1Prescriptions as of 10/14/2017 Sig: ATORVASTATIN 10 [...] Historical Med Sig: Disc: Erroneous entryEncounter Number: [id number] Status:Closed by NAHOMY SHARP PA-C on 10/14/17 [facility] PROGRESSon 10-14-2017 PROGRESS HNO ID: [id number]: Nahomy Sharp (Pa)Service: (none)Author Type: Physician AssistantType: Progress NotesFiled: 10/14/2017 [...] fileFAMILY HISTORY:No family history on file. Normal [facility] PROGRESS HNO ID: [id number]: Nahomy Sharp (Pa)Service: Orthopaedic SurgeryAuthor Type: Physician AssistantType: Progress NotesFiled: 10/20/2017 3:42 PMNote Text: [facility] [address] [place] [address] CLINIC NOTE Department of Orthopaedics - CYNTHIA KeitaCNAME: TSEBRIAN NO.: [id number] OF SERVICE: 10/14/2017CHIEF COMPLAINT: Right shoulder pain.HISTORY [...] doeshelp some temporarily. [facility] followed by an MRI. He is here todayfor further evaluation and discussion of treatment. He is gwnj-rqthppe-ohvkbxswf diabetic who was under poor control several [...] patient today on disk from 09/13/2017done at [facility] were personally interpreted andreviewed with the patient today. They show some AC joint arthritis. Goodacromiohumeral distance. No significant glenohumeral arthritis. Noevidence of fracture. No other osseous abnormalities.MRI: MRI dated 10/01/2017 from [facility] shows a mildrotator cuff tendinosis, but no [...] for physical therapy, which he will doat [facility] in [place] for 4-6 weeks. Will follow up in 6 weeks formikel. Discussed possibly a cortisone injection at that time ifnecessary. Declines today as he does not like needles.Dictated By: Pepe Zurita Dictated: 10/19/2017Date Typed: [facility] 10/19/2017[facility]# [id number] Normal [facility] SR-MRI Shoulder w/o Contrast Right IMPORTon 10-01-2017 SR-MRI Shoulder w/o Contrast Right IMPORT Images were obtained outside of [facility] [id number] Normal [facility] SR-XR Shoulder Complete Righ t IMPORTon 09-13-2017 SR-XR Shoulder Complete Right IMPORT Images were obtained outside of [facility] [id number] Normal [facility] Vital Signs Date Time Vital Sign Value Performing Clinician Facility 02-14-2024 16:11-0400 Body temperature 98.78 [degF] [facility] 02-14-2024 16:11-0400 Diastolic blood pressure 86 mm[Hg] [facility] 02-14-2024 16:11-0400 Heart rate 79 /min [facility] 02-14-2024 16:11-0400 Respiratory rate 18 /min [facility] 02-14-2024 16:11-0400 SaO2% (BldA) [Mass fraction] 98 % [facility] 02-14-2024 16:11-0400 Systolic blood pressure 131 mm[Hg] [facility] 2023 11:48-0400 Body height 176.5 cm Yuko MITCHELL Work Phone: [facility] 2023 11:48-0400 Body mass index (BMI) [Ratio] 31.16 kg/m2 Yuko Waite APRN-PAPER FINAL INSPECTOR Work Phone: [facility] 2023 11:48-0400 Body temperature 98.1 [degF] Yuko Waite APRN-PAPER FINAL INSPECTOR Work Phone: [facility] 2023 11:48-0400 Body weight 97.07 kg Yuko Waite ENGINEERING ASSISTANT-PAPER FINAL INSPECTOR Work Phone: [employer] 2023 11:48-0400 Diastolic blood pressure 74 mm[Hg] Yuko Waite ENGINEERING ASSISTANT-PAPER FINAL INSPECTOR Work Phone: [employer] 2023 11:48-0400 Heart rate 65 /min Yuko Waite ENGINEERING ASSISTANT-PAPER FINAL INSPECTOR Work Phone: [employer] 2023 11:48-0400 SaO2% (BldA) [Mass fraction] 99 % Yuko Waite ENGINEERING ASSISTANT-PAPER FINAL INSPECTOR Work Phone: [employer] 2023 11:48-0400 Systolic blood pressure 124 mm[Hg] Yuko Waite ENGINEERING ASSISTANT-PAPER FINAL INSPECTOR Work Phone: [employer] 01-06-2023 10:25-0400 Body height 177.8 cm Georgia Del Cid Other [employer] Other 01-06-2023 10:25-0400 Body mass index (BMI) [Ratio] 31.1 kg/m2 Georgia Del Cid Other [employer] Other 01-06-2023 10:25-0400 Body temperature 98.7 [degF] Georgia Del Cid Other [employer] Other 01-06-2023 10:25-0400 Body weight 98.34 kg Georgia Del Cid Other [employer] Other 01-06-2023 10:25-0400 Diastolic blood pressure 88 mm[Hg] Georgia Del Cid Other [employer] Other 01-06-2023 10:25-0400 Respiratory rate 18 /min Georgia Del Cid Other [employer] Other 01-06-2023 10:25-0400 SaO2% (BldA) [Mass fraction] 98 % Georgia Del Cid Other [employer] Other 01-06-2023 10:25-0400 Systolic blood pressure 136 mm[Hg] Georgia Del Cid Other [facility] [employer] Other 05-20-2022 16:12-0400 Blood Pressure Location Nicky NILL [facility] 05-20-2022 16:12-0400 Body temperature 98.06 [degF] Nicky NILL [facility] 05-20-2022 16:12-0400 Diastolic blood pressure 74 mm[Hg] Nicky NILL [facility] 05-20-2022 16:12-0400 Heart rate 79 /min Nicky NILL [facility] 05-20-2022 16:12-0400 Mean blood pressure 85 mm[Hg] Nicky NILL [facility] 05-20-2022 16:12-0400 Respiratory rate 16 /min Nicky NILL [facility] 05-20-2022 16:12-0400 SaO2% (BldA) [Mass fraction] 96 % Nicky NILL [facility] 05-20-2022 16:12-0400 Systolic blood pressure 106 mm[Hg] Nicky NILL [facility] 05-20-2022 14:41-0400 Blood Pressure Location Nicky NILL [facility] 05-20-2022 14:41-0400 Body temperature 98.06 [degF] Nicky NILL [facility] 05-20-2022 14:41-0400 Diastolic blood pressure 83 mm[Hg] Nicky NILL [facility] 05-20-2022 14:41-0400 Heart rate 70 /min Nicky NILL [facility] 05-20-2022 14:41-0400 Respiratory rate 16 /min Nicky NILL [facility] 05-20-2022 14:41-0400 SaO2% (BldA) [Mass fraction] 99 % Nicky NILL [facility] 05-20-2022 14:41-0400 Systolic blood pressure 135 mm[Hg] Nicky NILL [facility] 05-20-2022 14:38-0400 Body temperature 97.52 [degF] Nicky NILL [facility] 05-20-2022 14:38-0400 Diastolic blood pressure 85 mm[Hg] Nicky NILL [facility] 05-20-2022 14:38-0400 Heart rate 67 /min Nicky NILL [facility] 05-20-2022 14:38-0400 Respiratory rate 14 /min Nicky NILL [facility] 05-20-2022 14:38-0400 SaO2% (BldA) [Mass fraction] 100 % Nicky NILL [facility] 05-20-2022 14:38-0400 Systolic blood pressure 122 mm[Hg] Nicky NILL [facility] 05-20-2022 14:25-0400 Respiratory rate 11 /min Nicky NILL [facility] 05-20-2022 14:15-0400 Respiratory rate 15 /min Nicky NILL [facility] 05-20-2022 13:41-0400 Blood Pressure Location Nicky NILL [facility] 05-20-2022 13:41-0400 Body temperature 97.52 [degF] Nicky NILL [facility] 05-20-2022 13:35-0400 Respiratory rate 14 /min Nicky NILL [facility] 05-20-2022 10:00-0400 Body temperature 98.06 [degF] Nicky NILL [facility] 05-20-2022 10:00-0400 Mean blood pressure 103 mm[Hg] Nicky NILL [facility] 05-20-2022 10:00-0400 Heart rate 66 /min Nicky NILL [facility] 05-13-2022 12:32-0400 Blood Pressure Location Nicky NILL [facility] 05-13-2022 12:32-0400 BP/Pulse Patient Position Nicky NILL [facility] 05-13-2022 12:32-0400 Diastolic blood pressure 86 mm[Hg] Nicky NILL [facility] 05-13-2022 12:32-0400 Heart rate 67 /min Nicky NILL [facility] 05-13-2022 12:32-0400 Mean blood pressure 102 mm[Hg] Nicky NILL [facility] 05-13-2022 12:32-0400 Respiratory rate 18 /min Nicky NILL [facility] 05-13-2022 12:32-0400 Systolic blood pressure 134 mm[Hg] Nicky NILL [facility] 05-13-2022 12:30-0400 Blood Pressure Location Nicky NILL [facility] 05-13-2022 12:30-0400 BP/Pulse Patient Position Nicky NILL [facility] 05-13-2022 12:30-0400 Diastolic blood pressure 83 mm[Hg] Nicky NILL [facility] 05-13-2022 12:30-0400 Heart rate 69 /min Nicky NILL [facility] 05-13-2022 12:30-0400 Mean blood pressure 102 mm[Hg] Nicky NILL [facility] 05-13-2022 12:30-0400 SaO2% (BldA) [Mass fraction] 97 % Nicky NILL [facility] 05-13-2022 12:30-0400 Systolic blood pressure 140 mm[Hg] Nicky NILL [facility] 05-13-2022 12:30-0400 Body temperature 97.7 [degF] Nicky NILL [facility] 04-27-2022 09:05-0400 Blood Pressure Location Nicky NILL [facility] [place] 04-27-2022 09:05-0400 Diastolic blood pressure 95 mm[Hg] Nicky NILL [facility] [place] 04-27-2022 09:05-0400 Heart rate 58 /min Nicky NILL [facility] 04-27-2022 09:05-0400 Respiratory rate 16 /min Nicky NILL [facility] [place] 04-27-2022 09:05-0400 Systolic blood pressure 141 mm[Hg] Nicky PATELVianney [facility] 04-23-2022 11:11-0400 Blood Pressure Location BRAYDEN [facility] 04-23-2022 11:11-0400 Diastolic blood pressure 87 mm[Hg] Patrick OWEN [facility] 04-23-2022 11:11-0400 Heart rate 75 /min Patrick OWEN [facility] 04-23-2022 11:11-0400 Respiratory rate 16 /min Patrick OWEN [facility] 04-23-2022 11:11-0400 Systolic blood pressure 130 mm[Hg] Patrick OWEN [facility] Encounters Encounter Date Encounter Type Care Provider Facility Start: 02-14-2024 End: 02-14-2024 Emergency department patient visit Reddy Thao [facility] Start: 2023 End: 2023 Office outpatient visit 15 minutes Yuko MITCHELL Work Phone: [facility] Comment on above: Encounter for occupa tional physical examination (Primary Dx); Type 2 diabetes mellitus without complication, without long-term current use of insulin ([facility]); Anxiety; Sleep disturbance Start: 04-18-2023 End: 04-18-2023 ambulatory Patrick OWEN Facility:[facility] Start: 04-18-2023 End: 04-18-2023 Patient encounter procedure aPtrick OWEN [facility] Start: 01-06-2023 End: 01-06-2023 ambulatory Georgia Del Cid Other [employer] Other Start: 01-06-2023 Office outpatient visit 15 minutes Georgia Maria Eugenia [facility] Start: 11-30-2022 End: 11-30-2022 ambulatory Imad Asaad Facility:[facility] Start: 11-04-2022 End: 11-04-2022 ambulatory Imad Asaad Other [facility] [employer] Other Start: 11-04-2022 Telephone encounter Imad Asaad [facility] Start: 10-28-2022 End: 10-28-[address] PATRICK OWEN . Facility:[facility] Start: 10-26-[address] PATRICK OWEN . Fac ility:[facility] Start: 10-22-2022 End: 10-23-[address] PATRICK OWEN . Facility:[facility] Start: 10-21-2022 End: 10-21-2022 ambulatory Domonique Myers Facility:[facility] Start: 10-21-2022 End: 10-21-2022 ambulatory DO Jude R Ruvalcaba III Work Phone: [facility] Work Phone: Start: 10-21-2022 End: 10-21-2022 Patient encounter procedure DO Jude Ruvalcaba III Work Phone: [facility] Work Phone: Start: 06-25-2022 End: 06-25-2022 Patient encounter procedure Nicky R NILL [facility] Start: 06-02-2022 End: 06-02-2022 Patient encounter procedure Nicky R NILL [facility] Start: 05-20-2022 End: 05-20-2022 Admission to same day surgery center Nicky CHRISTINA [facility] Start: 05-13-2022 End: 05-13-2022 Patient encounter procedure Nicky CHRISTINA [facility] Start: 04-27-2022 End: 04-27-2022 Patient encounter procedure Nicky CHRISTINA [facility] [place] Start: 04-23-2022 End: 04-23-[address] PATRICK OWEN . Facility:[facility] Start: 04-23-2022 End: 04-23-2022 Patient encounter procedure Patrick OWEN [facility] Start: 04-04-2022 End: 04-04-2022 ambulatory SALBADOR BOOKER Facility:[facility] Start: 02-17-2022 End: 02-17-2022 ambulatory UMM SILVERMAN . Facility:[facility] Start: 10-14-2017 End: 10-17-2017 Ambulatory NAHOMY ORNELAS) [facility] Procedures Date Procedure Procedure Detail Performing Clinician Start: 07-04-2023 Adult depression scr eening assessment Yuko Waite ENGINEERING ASSISTANTMecox Lane Work Phone: Start: 10-21-2022 Plain chest X-ray DO denisse Clementsers III Work Phone: Start: 09-27-2022 Microalbumin [Mass/v olume] in Urine by Test strip Yuko Waite ENGINEERING ASSISTANT-PAPER FINAL INSPECTOR Work Phone: Start: 05-20-2022 Laparoscopy surg rpr initial inguinal hernia Nicky PATELVianney Start: 11-03-2020 Follow-up visit Start: 08-28-2020 Follow-up visit Start: 02-27-2015 Harris bunionectomy, right Patrick OWEN Start: 01-02-2015 Harris bunionectomy, left foot Patrick OWEN Start: 10-23-2012 Hemorrhoidectomy Willi OWEN Cholecystectomy Patrick CARSONVincenzo LAKISHA Circumcision Patrick OWEN Colonoscopy Patrick OWEN Colonoscopy Patrick OWEN Laparoscopic cholecystectomy Patrick OWEN Lateral sphincterotomy Amy OWEN removal of ingrown toenail 1 Patrick OWEN Comment on above: left great toe removal of ingrown toenail 1 Nicky NILL Comment on above: left great toe Tooth extraction ALLI DELGADILLO Plan of Treatment Date Care Activity Detail Author Start: 10-26-2024 Adult BMI Screening Adult BMI Screening [facility] Start: 10-26-2024 Tobacco Screening Tobacco Screening [facility] Start: 07-04-2024 Depression Screening Depression Screening [facility] Start: 03-25-2024 Influenza vaccination Influenza Vaccine [facility] Start: 01-30-2024 End: 01-30-2024 Patient encounter procedure 01/30/2024 4:15 PM EDT [facility] [address] [place] [phone] Yuko Waite APRN-GENEVA [address] [place] [phone] [facility] Start: 12-17-2023 Adult BMI Follow Up Plan Adult BMI Follow Up Plan [facility] Start: 10-31-2023 End: 10-31-2023 Patient encounter procedure 10/31/2023 4:00 PM EDT Office Visit [facility] [address] [place] [phone] Yuko Waite APRN-PAPER FINAL INSPECTOR [address] [place] [phone] [facility] Start: 09-28-2023 Urine screening for protein Urine Microalbumin [facility] Start: 09-09-2022 Diabetic foot examination Diabetic Foot Exam [facility] Start: 2000 DTaP,Tdap and Td Vaccines (1 - Tdap) DTaP,Tdap and Td Vaccines (1 - Tdap) [facility] Start: 1981 Glaucoma screening Diabetic Ophthalmology Exam [facility] Start: 1981 Tobacco Counseling Tobacco Counseling [facility] Immunizations Immunization Date Immunization Notes Care Provider Fa janethty NEGATED: Highlighted row has not occurred!09-09-2021 influenza, injectable, quadrivalent, preservative free Yuko Waite ENGINEERING ASSISTANT-PAPER FINAL INSPECTOR Work Phone: [facility] Comment on above: Deferred: Patient de cision Payers Date Payer Category Payer Self-pay [id number] 2022 Medicaid [facility] MEDIC AID [facility] MEDICAID [facility] [id number] 2022-Present [phone] [address] [place] [address] [id number] 1981 Unknown [id number] 1981 Unknown [id number] 1981 Unknown [id number] 1980 Unknown [id number] 1981 Unknown [id number] 1981 Unknown [id number] 1981 Unknown [id number] 1981 Unknown [id number] 1981 Unknown [id number] 1958 Medicaid [id number] 1958 Medicaid [id number] Unknown [id number] Unknown [id number] Social History Date Type Detail Facility Start: 01-31-2020 End: 04-23-2022 Tobacco smoking status Smoker (finding) [facility] Start: 07-04-2023 End: 2023 Sex Assigned At Male [facility] Start: 04-27-2022 Tobacco smoking status Heavy t obacco smoker (finding) [facility] Comment on above: Smoker Tobacco smoking status Never [facility] Comment on above: Smoker Start: 1980 Sex Assigned At Male [facility] Start: 09-27-2022 [facility] History of tobacco use Cigarette Smoker P [facility] Start: 09-27-2022 End: 07-04-2023 Cigarettes smoked current (pack per day) - [facility] Start: 09-27-2022 Tobacco use and exposure Smokeless tobacco [facility] Start: 2023 Alcohol intake Ex-[facility] (finding) [facility] Start: 1980 Sex Assigned At Not on file P [facility] Start: 02-14-2024 Tobacco smoking status Light t obacco smoker (finding) [facility] Medical Equipment Procedure Code Equipment Code Equipment Origin al Text Equipment Identifier Dates INGUINAL HERNIA REPAIR ADULT Nicky CHRISTINA MD 05/20/22 Non Biological Abdomen {[id number] FDA Start: 05-20-2022 Monitor blood padilla gar daily [id number] Start: 2023 1 Unit by miscellaneous route in the morning. [id number] Start: 07-05-2023 Monitor blood padilla gar daily [id number] Start: 07-05-2023 End: 2023 Functional Status Date Assessment Result Facility 02-14-2024 Functional Status N/A [facility] 05-13-2022 Functional Status No [facility] 04-27-2022 Functional Status N/A [facility] 04-23-2022 Functional Status N/A [facility] Clinical Notes 04-23-2022 to 02-14-2024 Note Date & Type Note Facility 02-14-2024 Hospital Discharg e instructions Patient Education 02/14/2024 17:04:58 How to Use a Cast Shoe How to Use a Cast Shoe A cast shoe is a stiff shoe that is worn over a cast. You may need to wear a cast shoe after a foot or leg injury. It helps you walk, and it keeps the cast clean and dry. Your health care provider may give you a cast shoe after you are allowed to use your injured foot or leg to support (bear) your weight. Cast shoes are made of various materials. They usually have a flat, firm, cushioned bottom. What are the risks? A cast shoe that is not worn properly can lead to cast damage. To protect the cast: Properly position and adjust the shoe to support the cast. Bear weight on the cast shoe only as told by your health care provider. How to use a cast shoe Wear the cast shoe as told by your health care provider. Follow the sexual abuse counsellor's instructions for use. Tighten and properly adjust the cast shoe so it is secure on your foot. Do not wear the cast shoe while you are resting at home or sleeping. Keep the cast shoe clean and dry. Do not wear any other kind of footwear until your health care provider says that you can. How to care for your cast shoe Use mild soap and water to clean your cast shoe. Make sure your cast shoe is completely clean and dry before you put it over your cast. Contact a health care provider if: Your cast gets wet or damaged. You have foot pain when you wear the cast shoe. You have foot pain when you move. Your foot pain is getting worse or the pain is not getting better over time. Summary A cast shoe is a rigid shoe that you wear over a cast. A cast shoe helps you walk, and it keeps your cast clean and dry. A cast shoe that is not worn properly can lead to cast damage. This information is not intended to replace advice given to you by your health care provider. Make sure you discuss any questions you have with your health care provider. Document Revised: 05/04/2021 Document Reviewed: 05/04/2021 [employer] Patient Education 2022 [employer]. 02/14/2024 17:04:58 Foot Sprain Foot Sprain A foot sprain is an injury to one of the ligaments in the feet. Ligaments are strong tissues that connect bones to each other. The ligament can be stretched too much. In some cases, it may tear. A tear can be either partial or complete. The severity of the sprain depends on how much of the ligament was damaged or torn. What are the causes? This condition is usually caused by suddenly twisting or pivoting your foot. What increases the risk? You are more likely to develop this condition if: You play a sport, such as basketball or football. You exercise or play a sport without first warming up your muscles. You start a new workout or sport. You suddenly increase how long or hard you exercise or play a sport. You have injured your foot or ankle before. What are the signs or symptoms? Symptoms of this condition start soon after an injury and include: Pain, especially in the arch of your foot. Bruising. Swelling. Being unable to walk or use your foot to support body weight. How is this diagnosed? This condition is diagnosed with a medical history and physical exam. You may also have imaging tests, such as: X-rays to check for broken bones (fractures). An MRI to see if the ligament is torn. How is this treated? Treatment for this condition depends on the severity of the sprain. Mild sprains and major sprains can be treated with: Rest, ice, pressure (compression), and elevation (RICE). Elevation means raising your injured foot. Keeping your foot in a fixed position (immobilization) for a period of time. This is done if your ligament is overstretched or partially torn. Your health care provider will apply a bandage, splint, or walking boot to keep your foot from moving until it heals. Using crutches or a scooter for a few weeks to avoid bearing weight on your foot while it is healing. Physical therapy exercises to improve movement and strength in your foot. Major sprains may also be treated with: Surgery. This is done if your ligament is fully torn and a procedure is needed to reconnect it to the bone. A cast or splint. This will be needed after surgery. A cast or splint will need to stay on your foot while it heals. Follow these instructions at home: If you have a bandage, splint, or boot: Wear it as told by your health care provider. Remove it only as told by your health care provider. Loosen it if your toes tingle, become numb, or turn cold and blue. Keep it clean and dry. If you have a cast: Do not put pressure on any part of the cast until it is fully hardened. This may take several hours. Do not stick anything inside the cast to scratch your skin. Doing that increases your risk for infection. Check the skin around the cast every day. Tell your health care provider about any concerns. You may put lotion on dry skin around the edges of the cast. Do not put lotion on the skin underneath the cast. Keep it clean and dry. Bathing Do not take baths, swim, or use a hot tub until your health care provider approves. Ask your health care provider if you may take showers. You may only be allowed to take sponge baths. If the bandage, splint, boot, or cast is not waterproof: ?Do not let it get wet. ?Cover it with a watertight covering when you take a bath or shower. Managing pain, stiffness, and swelling If directed, put ice on the injured area. To do this: ?If you have a removable bandage, splint, or boot, remove it as told by your health care provider. ?Put ice in a plastic bag. ?Place a towel between your skin and the bag, or between your cast and the bag. ?Leave the ice on for 20 minutes, 2 3 times per day. ?Remove the ice if your skin turns bright red. This is very important. If you cannot feel pain, heat, or cold, you have a greater risk of damage to the area. Move your toes often to reduce stiffness and swelling. Elevate the injured area above the level of your heart while you are sitting or lying down. Activity Do not use the injured foot to support your body weight until your health care provider says that you can. Use crutches or a scooter as told by your health care provider. Ask your health care provider what activities are safe for you. Do exercises as told by your health care provider. Gradually increase how much and how far you walk until your health care provider says it is safe to return to full activity. Driving Ask your health care provider if the medicine prescribed to you requires you to avoid driving or using machinery. Ask your health care provider when it is safe to drive if you have a bandage, splint, boot, or cast on your foot. General instructions Take hbgl-cwq-gvrtrep and prescription medicines only as told by your health care provider. When you can walk without pain, wear supportive shoes that have stiff soles. Do not wear flip-flops. Do not walk barefoot. Keep all follow-up visits. This is important. Contact a health care provider if: Medicine does not help your pain. Your bruising or swelling gets worse or does not get better with treatment. Your splint, boot, or cast is damaged. Get help right away if: You develop severe numbness or tingling in your foot. Your foot turns blue, white, or blackburn, and it feels cold. Summary A foot sprain is an injury to one of the ligaments in the feet. Ligaments are strong tissues that connect bones to each other. You may need a bandage, splint, boot, or cast to support your foot while it heals. Sometimes, surgery may be needed. You may need physical therapy exercises to improve movement and strength in your foot. This information is not intended to replace advice given to you by your health care provider. Make sure you discuss any questions you have with your health care provider. Document Revised: 10/31/2020 Document Reviewed: 10/31/2020 [employer] Patient Education 2022 [employer]. Follow Up Care 02/14/2024 15:59:39 With:SALBADOR BOOKER Address: [address] [place] [id number] Business (1) When:02/17/2024 16:55:32 Comments:Return to the emergency room if your pain gets worse or any new symptoms. [facility] 02-14-2024 Note ED Patient Education Note Orthopedics How to Use a Cast Shoe A cast shoe is a stiff shoe that is worn over a cast. You may need to wear a cast shoe after a foot or leg injury. It helps you walk, and it keeps the cast clean and dry. Your health care provider may give you a cast shoe after you are allowed to use your injured foot or leg to support (bear) your weight. Cast shoes are made of various materials. They usually have a flat, firm, cushioned bottom. What are the risks? A cast shoe that is not worn properly can lead to cast damage. To protect the cast: ? Properly position and adjust the shoe to support the cast. ? Bear weight on the cast shoe only as told by your health care provider. How to use a cast shoe ? Wear the cast shoe as told by your health care provider. ? Follow the sexual abuse counsellor's instructions for use. ? Tighten and properly adjust the cast shoe so it is secure on your foot. ? Do not wear the cast shoe while you are resting at home or sleeping. ? Keep the cast shoe clean and dry. ? Do not wear any other kind of footwear until your health care provider says that you can. How to care for your cast shoe ? Use mild soap and water to clean your cast shoe. ? Make sure your cast shoe is completely clean and dry before you put it over your cast. Contact a health care provider if: ? Your cast gets wet or damaged. ? You have foot pain when you wear the cast shoe. ? You have foot pain when you move. ? Your foot pain is getting worse or the pain is not getting better over time. Summary ? A cast shoe is a rigid shoe that you wear over a cast. ? A cast shoe helps you walk, and it keeps your cast clean and dry. ? A cast shoe that is not worn properly can lead to cast damage. This information is not intended to replace advice given to you by your health care provider. Make sure you discuss any questions you have with your health care provider. Document Revised: 05/04/2021 Document Reviewed: 05/04/2021 [employer] Patient Education ? 2022 [employer]. Foot Sprain A foot sprain is an injury to one of the ligaments in the feet. Ligaments are strong tissues that connect bones to each other. The ligament can be stretched too much. In some cases, it may tear. A tear can be either partial or complete. The severity of the sprain depends on how much of the ligament was damaged or torn. What are the causes? This condition is usually caused by suddenly twisting or pivoting your foot. What increases the risk? You are more likely to develop this condition if: ? You play a sport, such as basketball or football. ? You exercise or play a sport without first warming up your muscles. ? You start a new workout or sport. ? You suddenly increase how long or hard you exercise or play a sport. ? You have injured your foot or ankle before. What are the signs or symptoms? Symptoms of this condition start soon after an injury and include: ? Pain, especially in the arch of your foot. ? Bruising. ? Swelling. ? Being unable to walk or use your foot to support body weight. How is this diagnosed? This condition is diagnosed with a medical history and physical exam. You may also have imaging tests, such as: ? X-rays to check for broken bones (fractures). ? An MRI to see if the ligament is torn. How is this treated? Treatment for this condition depends on the severity of the sprain. Mild sprains and major sprains can be treated with: ? Rest, ice, pressure (compression), and elevation (RICE). Elevation means raising your injured foot. ? Keeping your foot in a fixed position (immobilization) for a period of time. This is done if your ligament is overstretched or partially torn. Your health care provider will apply a bandage, splint, or walking boot to keep your foot from moving until it heals. ? Using crutches or a scooter for a few weeks to avoid bearing weight on your foot while it is healing. ? Physical therapy exercises to improve movement and strength in your foot. Major sprains may also be treated with: ? Surgery. This is done if your ligament is fully torn and a procedure is needed to reconnect it to the bone. ? A cast or splint. This will be needed after surgery. A cast or splint will need to stay on your foot while it heals. Follow these instructions at home: If you have a bandage, splint, or boot: ? Wear it as told by your health care provider. Remove it only as told by your health care provider. ? Loosen it if your toes tingle, become numb, or turn cold and blue. ? Keep it clean and dry. If you have a cast: ? Do not put pressure on any part of the cast until it is fully hardened. This may take several hours. ? Do not stick anything inside the cast to scratch your skin. Doing that increases your risk for infection. ? Check the skin around the cast every day. Tell your health care provider about any concerns. ? You may put (more content not included)... [facility] 02-14-2024 Evaluation + Plan note Extrac ekaterina from: Title:ED Note Author:Master Olivo, Reddy Rose te:02/14/24 1. Sprain of left foot (S93. 602A: Unspecified sprain of left foot, initial encounter) Orders: ibuprofen, 600 mg = 1 tab(s), Tab, Oral, Once, Stop date 02/14/24 16:22:00 EDT, STAT, Start date 02/14/24 16:22:00 EDT, 02/14/24 16:22:00 EDT Post-op Shoe XR Foot 3+ Views Left [facility]04-04-2024 History of Present illness Narrative* Yuko Waite, ENGINEERING ASSISTANT-PAPER FINAL INSPECTOR - 2023 11:45 AM EDT Subjective Patient ID: Brian Tse is a 42 y.o. male. GEGE Torres presents to the office for physical exam as he is in the [employer] at [employer]. He will finish at the end of February. He reports he is doing well and has no concerns today. He states he is doing the best that he has in a long time. He has been working on diet and exercise and feels good. Hehas been cutting back on smoking and is proud of this. He reports that he is going through a divorce and has had increased anxiety and has not been able to sleep. He reports he has tried melatonin and benadryl, but he still cannot sleep. He would be willing to try medication for anxiety and sleep. The following portions of the patient's history were reviewed and updated as appropriate: allergies, current medications, past family history, past medical history, past social history, past surgicalhistory, problem list, and medication reconciliation was completed including current medication andpost discharge medication. Review of Systems Constitutional: Negative for chills, diaphoresis, fatigue, fever and unexpected weight change. HENT: Negative for congestion, ear pain, sinus pressure, sinus pain and sore throat. Eyes: Negative for photophobia, pain, discharge and visual disturbance. Respiratory: Negative for cough, chest tightness and shortness of breath. Cardiovascular: Negative for chest pain, palpitations and leg swelling. Gastrointestinal: Negative for abdominal pain, diarrhea, nausea and vomiting. Endocrine: Negative for polydipsia, polyphagia and polyuria. Genitourinary: Negative for difficulty urinating, frequency, hematuria and urgency. Musculoskeletal: Negative for arthralgias, gait problem, joint swelling and neck pain. Skin: Negative for pallor and rash. Neurological: Negative for dizziness, weakness, light-headedness and numbness. Psychiatric/Behavioral: Positive for sleep disturbance. Negative for self-injury and suicidal ideas. The patient is not nervous/anxious. Objective Physical Exam Vitals and nursing note reviewed. Constitutional: General: He is not in acute distress. Appearance: Normal appearance. He is well-developed. He is not ill-appearing. HENT: Head: Normocephalic and atraumatic. Right Ear: Tympanic membrane, ear canal and external ear normal. Left Ear: Tympanic membrane, ear canal and external ear normal. Nose: Nose normal. Mouth/Throat: Pharynx: Oropharynx is clear. Eyes: Extraocular Movements: Extraocular movements intact. Conjunctiva/sclera: Conjunctivae normal. Pupils: Pupils are equal, round, and reactive to light. Neck: Vascular: No carotid bruit. Cardiovascular: Rate and Rhythm: Normal rate and regular rhythm. Pulses: Normal pulses. Heart sounds: Normal heart sounds. No murmur heard. Pulmonary: Effort: Pulmonary effort is normal. No respiratory distress. Breath sounds: Normal breath sounds. No stridor. No wheezing, rhonchi or rales. Chest: Chest wall: No tenderness. Abdominal: General: Bowel sounds are normal. There is no distension. Palpations: Abdomen is soft. There is no mass. Tenderness: There is no abdominal tenderness. There is no guarding or rebound. Hernia: No hernia is present. Musculoskeletal: General: Normal range of motion. Cervical back: Normal range of motion and neck supple. No rigidity or tenderness. Right lower leg: No edema. Left lower leg: No edema. Lymphadenopathy: Cervical: No cervical adenopathy. Skin: General: Skin is warm and dry. Capillary Refill: Capillary refill takes less than 2 seconds. Findings: No erythema or rash. Neurological: General: No focal deficit present. Mental Status: He is alert and oriented to person, place, and time. Psychiatric: Mood and Affect: Mood normal. Behavior: Behavior normal. Assessment/Plan Physical exam is negative. Brian can be cleared for the [employer] without restrictions. Physical form completed. Refills on diabetic medications. Discussed Trulicity, and need to titrate up dosage after 4 weeks. Patient understanding and agreeable to keep in contact with office about this. FU in 3 months for DM. Continue to work on diet and exercise. We will trial Wellbutrin for a combination of smoking cessation and anxiety. Trazodone ordered to help with sleep. FU 3 months to recheck anxiety, sleep, and DM. Brian was seen today for annual exam. Diagnoses and all orders for this visit: Encounter for occupational physical examination Type 2 diabetes mellitus without complication, without long-term current use of insulin ([facility]) - blood sugar diagnostic (glucose blood) strip; Monitor blood sugar daily - glyBURIDE (DIABETA) 5 mg tablet; TAKE 1 TABLET BY MOUTH IN THE MORNING AND AT NIGHT WITH MEALS Anxiety Sleep disturbance Other orders - dulaglutide (TRULICITY) 0.75 mg/0.5 mL pen injector; Inject 0.5 mL (0.75 mg total) under the skinevery 7 days. - traZODone (DESYREL) 50 mg tablet; Take 1 tablet (50 mg total) by mouth nightly. - buPROPion XL (WELLBUTRIN XL) 150 mg 24 hr tablet; Take 1 tablet (150 mg total) by mouth every morning. STEPHEN Ochoa 10/27/23 1548 [facility]* Encounter Date Diagnosis Assessment Notes Treatment Notes Treatment Clinical Notes Dec, Acute gingivitis (ICD-10 - K05.00) [...] worsening. Patient verbalized understanding of treatment plan. [facility] Other 04-13-2023 Hospital Discharge instructions Follow Up Care 11/04/2022 10:27:15 With:BRAYDEN CORONEL, Patrick Guidry, URL Address: [facility] [address] , [place] [phone] When: Unknown [facility] 2022 Hospital Discharge instructions Patient Education 05/20/2022 14:32:40 Post Op Patient Instructions - FT (CUSTOM) Follow Up Care 04/27/2022 09:44:58 With:Nicky CHRISTINA Address: [address], [address] [place] [phone] Business (1) When:7 to 10 days [facility]09-30-2022 Hospital Discharge instructions Patient Education 04/23/2022 12:05:06 Kidney Stones, Ndsh-ha-Nslz Kidney Stones Kidney stones are rock-like masses [...] Follow these instructions at home: Medicines Take unzo-rov-fcvrtit and prescription medicines only as told by [...] 12/27/2008 Document Revised: 11/27/2019 Document Reviewed: 11/27/2019 [employer] Patient Education 2020 [employer]. Follow Up Care 04/22/2022 09:22:48 With:Patrick OWEN MD, URL Address: [address] [place], [place] [id number]- When: Unknown [facility] evaluation + Plan note Future Appointments Appointment Date:04/27/2022 09:00:00 AM Scheduled Provider:Nicky CHRISTINA MD Location:[facility] Appointment Type:[facility] Appointment Date:10/22/2022 08:45:00 AM Scheduled Provider:Patrick OWEN MD Location:[facility] Appointment Type:URO Office Visit Diagnostic Tests Pending * Calculi Analysis Urinary 04/23/22 [facility] evaluation + Plan note Future Appointments Appointment Date:05/13/2022 12:30:00 PM Scheduled Provider: Location:[facility] Appointment Type:Surgical PAT FT Appointment Date:05/13/2022 01:30:00 PM Scheduled Provider: Location:[facility] Appointment Type:Surgery PAT COVID Testing Appointment Date:05/20/2022 11:30:00 AM Scheduled Provider: Location:[facility] Appointment Type:Surgery FT Appointment Date:10/22/2022 08:45:00 AM Scheduled Provider:Patrick OWEN MD Location:[facility] Appointment Type:URO Office Visit [facility] Evaluation + Plan note Future Appointments Appointment Date:05/20/2022 11:30:00 AM Scheduled Provider: Location:[facility] [facility] Appointment Type:Surgery FT Appointment Date:10/22/2022 08:45:00 AM Scheduled Provider:Patrick OWEN MD Location:[facility] Future Appointments Appointment Date:10/22/2022 08:45:00 AM Scheduled Provider:Patrick OWEN MD Location:[facility] Future Appointments Appointment Date:06/22/2022 02:40:00 PM Scheduled Provider:Nicky CHRISTINA MD Location:[facility] Appointment Type:GS Post Op 15 Appointment Date:10/22/2022 08:45:00 AM Scheduled Provider:Patrick OWEN MD Location:[facility] Appointment Type:URO Office Visit General Surgery [place] Evaluation noteNo assessment information available [facility] Work Phone: Evaluation noteNo InformationNortDelaware [facility] Hospital [employer] Other Evaluation note* Diagnosis Encounter for occupational physical examination- Primary Type 2 diabetes mellitus without complication, without long-term current use of insulin ([facility]) Anxiety Anxiety state, unspecified Sleep disturbance Unspecified sleep disturbance documented in this encounter [facility] SystemHistory general Narrative - Reported* Type Description Date Medical History Diabetes Medical History Renal calculi Medical History Hematochezia Surgical History CHOLECYSTECTOMY Surgical History HEMORRHOIDECTOMY Surgical History Foot Surgery Surgical History bunionectomy [facility] [employer] Other Hospital course Narrative No data available for this section [facility] Hospital Discharge instructions No data available for this section [facility] General Surgery [place] InstructionsNot on filedocumented in this encounter [facility] No data available for this section [facility] Summary Purpose Family History No Family [...] Diagnosis: Phimosis, N47.1 Surgeon: Nicky Swartz Resident/Fellow/Other Refractory Manager: Radha Madrigal Procedure: 1. CIRCUMCISION Anesthesia: No [...] section and content) DATE CREATED AUTHOR 01/12/2018 [facility] DATE CREATED AUTHOR AUTHOR'S ORGANIZ ATION 09/16/2020 [facility] DATE CREATED AUTHOR AUTHOR'S ORGANIZ ATION 11/04/2020 [facility] DATE CREATED AUTHOR AUTHOR'S ORGANIZ ATION 11/04/2020 [employer] DATE CREATED AUTHOR AUTHOR'S ORGANIZ ATION 12/04/2022 [facility] DATE CREATED AUTHOR AUTHOR'S ORGANIZ ATION 12/06/2022 [facility] DATE CREATED AUTHOR AUTHOR'S ORGANIZ ATION 02/17/2024 [facility] Care Team (unrecognized sect ion and content) Team Status: Active Member Role Status Dates Jude Ruvalcaba III , DO Primary Care Provider Active Team Status: Inactive Member Role Status Dates Jude Ruvalcaba III , DO Primary Care Provider Active Domonique Myers APRN Attending Provider Active 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 [employer] provides no warranty or guarantee of the accuracy or completeness of information in this document.
== END 2024-03-05 09:12 | disposition home or self-care (01) ==
LOC: EC 09:12
PROVIDERS: Visit Provider Orthopaedic Surgery
DX: S90.32XD Contusion of left foot, subsequent encounter (principal)
CPT/HCPCS: 73630

== ENCOUNTER 2024-04-09 08:32 | Outpatient (OUT) | payer OTHER, SELFPAY ==
--- NOTE | 2024-04-09 | XR_ITS ---
The [address] [address] Patient Name: YESENIA TSE MRN: [id number] date: 1980 Sex: M Assigned Patient Location: Current Patient Location: Accession/Order Number: [id number] Exam Date: 04/09/2024 08:45 Report Date: 04/11/2024 07:27 At the request of: JUANITA VILLAR Procedure: XR foot LT min 3V PROCEDURE: XR foot LT min 3V COMPARISON: 03/05/2024 HISTORY: LEFT FOOT PAIN FINDINGS: BONES:No acute fracture or dislocation. Likely remote osteotomy and screw placement at of the first metatarsal, stable SOFT TISSUES:Negative. No visible soft tissue swelling. EFFUSION:None visible. OTHER: Negative. XR/XR foot LT min 3V IMPRESSION: No acute radiographic abnormality Electronically authenticated by: CRISELDA DEGROOT Date: 04/11/2024 07:27
--- OUTSIDE RECORDS SUMMARY | 2024-04-09 08:52 | XMS_ITS | CCD ---
Author Organization [facility] Care Team Providers Care Soil Fertility Extension Specialist Name Role Phone NAHOMY SHARP (MAZIN) Unavailable Unavailable Jude Ruvalcaba III Primary Care Physician [phone] SALBADOR BOOKER Primary Care Physician [phone] DO Jude Ruvalcaba III Primary Care Provider [...] Avila Unavailable SALBADOR BOOKER Primary Care Physician [phone] Yuko Concepcion Primary Care Provider SALBADOR BOOKER Primary Care Physician Patrick OWEN Attending Unavailable Reddy Thao Attending Unavailable Allergies Allergy Classification Reported Allergen(s) Allergy Type Date of Onset Reaction(s) Facility [facility] (1 source) metFORMIN; Translations: [metformin] Drug Allergy Diarrhea (finding) [facility] (9 sources) metFORMIN; Translations: [metformin] Drug Allergy Diarrhea (finding), Diarrhea [facility] (1 source) metFORMIN Drug Allergy [facility] (1 source) Acetaminophen / oxyCODONE; Translations: [Percocet 5/325] Drug Allergy [facility] Repository (1 source) No Known Medication Allergies; Translations: [No Known Medication Allergies] Propensity to adverse reactions (disorder) [facility] Repository Medications Current Medications Medication Drug Class(es) Dates Sig (Normalized) Sig (Original) acetaminophen 325 mg / oxyCODONE hydrochloride 5 mg oral tablet (1 source) Opioid Agonist Start: 05-20-2022 End: 05-25-2022 Percocet 325 mg-5 mg Tab 1 tab(s), Oral, q3hr Pain, 20 tab(s), Refill(s) 0, take with food or milk, [facility]/pharmacy #[id number], 180, cm, 05/13/22 12:43:00 EDT, Height/Length Dosing, [...] complication, without long-term current use of insulin (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; Translations: [PRISON USE ORAL 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 DX] Onset: 3 Episodic [...] Clinical Summary ED Clinical Summary [place] [id number] ED Clinical Summary Person Information Name: BRIAN TSE Maria D/[facility] Age: 43 Years : 1980 Sex: Male Language: Telugu PCP: SALBADOR BOOKER CNP Marital Status: Single Phone: [phone] Visit Id: Visit Reason: Foot pain-swelling; LT [...] 02/14/2024 17:04:58 02/14/2024 17:04:58 ADDRESS: [place] [facility] [facility] [id number] PHYS DOC NOTES: MEDICAL INFORMATION: Prescriptions Given: Medications to Continue with No Changes Other Medications glyBURIDE (GlyBURIDE (Eqv-Micronase) 5 mg oral tablet) 1 Tablets By Mouth 2 times a day. tamsulosin (tamsulosin 0.4 mg Cap) 1 Capsules By Mouth every day. Refills: 0. PATIENT EDUCATION INFORMATION: Instructions: How to Use a Cast Shoe; Foot Sprain Follow up: With: Address: When: SALBADOR BOOKER [address] [place], [place] [id number] [employer] (1Calvin In 3 days 02/17/2024 Comments: Return to the emergency room if your pain gets worse or any new symptoms. DIAGNOSIS: 1:Sprain of left foot Normal [facility] ED Note-Physicianon 02-14-20 ED Note-Physician ED [...] and Complexity of Problems Differential Diagnosis: [] [facility] Data External documents reviewed: [] My EKG [...] BOOKER In 3 days 02/17/2024 EDT [address] [place] [address] Business (1) Additional Instructions: Return [...] Views Left (more content not included)... Normal [facility] Comment on above: Result Comment: Elec tronically Signed By: Master Olivo, Reddy H\.br\Date and Time Signed: 02/14/24 16:56 EDT ED Patient Summaryon 024 ED Patient Summary ED Patient Summary [place] [id number] Patient Discharge Instructions Person Information Name: BRIAN TSE Age: 43 Years [facility]: [id number] Arrival Date: 02/14/2024 15:56:45 Discharge Diagnosis: 1:Sprain of left foot Primary Care Physician: SALBADOR BOOKER CNP Provider Information Primary Provider: Reddy Thao M.D. Advanced Electric Deicer Inspector:None The exam and treatment you received in the Emergency Department were for an urgent problem and are not intended as complete care. It is important that you follow up with a doctor, nurse practitioner, or physician?s photography assistant for ongoing care. If your symptoms [...] Follow-up Instructions: With: Address: When: SALBADOR BOOKER [address] [place] [phone] [facility] (1) In 3 days 02/17/2024 Comments: Return [...] opioids can be used to help relieve szimskto-if-abcofl pain and are often prescribed following a [...] tell you (more content not included)... Normal [facility] XR Foot 3+ Views Lefton 01-23 [...] mGy = . DAP = . Normal [facility] Glucose Poct Glucometerson 0 11-30-2022 Glucose [Mass/Vol] 155 mg/dL Normal [facility] Comment on above: Result Comment: [facility] Glucose Reference Range is dependent on time and content of last meal. Glucose of more than 200 mg/dL in a nonstressed, ambulatory subject supports the diagnosis of Diabetes Mellitus. PERFORMED BY: [facility] [address] [place] [address] PATHOLOGIST MARKETING ASSOCIATE IGLESIA SANCHEZ M.D. Performed By: #### G STIVEN #### Point of Care testing , Roland 11-30-2022 L --- Specimen: [id number] Received: 11/30/22 Status: JAGDISH Belcher Num: [id number] Spec Type: Surgical Subm Dr: Edvin Colunga MD Tissues: A Colon Biopsy (ASCENDING POLYP) Procedures: HE/2, Gross/Micro L4 Age/ Patient Sex Location Account Attending Physician Brian Tse /[facility] [id number] Edvin Colunga MD SPEC NUM: [id number] RECD: 11/30/22 STATUS: JAGDISH BELCHER NUM: [id number] REINA: 11/30/22- [facility] DR: Edvin Colunga MD ENTERED: 11/30/[address] [facility] [address]: REBECA TYPE: Surgical DEPT: S ORDERED: [...] support the above pathologic diagnosis. CPT Codes 14389 Specimen: [id number] Received: 11/30/22-122 Status: JAGDISH Ye Num: [id number] Spec Type: Surgical Subm Dr: Edvin Colunga MD Tissues: A Colon Biopsy (ASCENDING POLYP) Procedures: Jami NICHOLAS/Jakob L4 Patient: Brian Tse [id number] (Continued) Signed (signature on file) Daily Quarles MD 12/01/[address] [facility] CBC AUTO DIFFon 10-28-2022 BASO # 0.1 103/ul Normal 0.0-0.1 [facility] Comment on above: Performed By: #### C BC #### [facility] [address] [address] [address] Yash Mckeon Basophils/100 WBC (Bld) 0.8 % Normal 0.2-2.0 [facility] Comment on above: Performed By: #### C BC #### [facility] [address] [place] [address] [address] Yash Mckeon EO # 0.4 103/ul Normal 0.0-0.7 [facility] Comment on above: Performed By: #### C BC #### [facility] [address] [place] [address] Dr. Yash Mckeon Eosinophils/100 WBC (Bld) 3.3 % Normal 0.9-7.0 [facility] Comment on above: Performed By: #### C BC #### [facility] [address] [place] [address] Dr. Yash Mckeon Erythrocyte distribution width (RBC) [Ratio] 14.0 % Normal 11.0-15.0 [facility] Comment on above: Performed By: #### C BC #### [facility] [address] [place] [address] Dr. Yash Mckeon Hematocrit (Bld) [Volume fraction] 45.4 % Normal 42.0-54.0 [facility] Comment on above: Performed By: #### C BC #### [facility] [address] [place] [address] Dr. Yash Mckeon Hemoglobin (Bld) [Mass/Vol] 14.8 g/dL Normal 14.0-18.0 [facility] Comment on above: Performed By: #### C BC #### [facility] [address] [place] [address] Dr. Yash Mckeon IG # 0.04 10e3/ul Critically high 0.00-0.03 [facility] Comment on above: Performed By: #### C BC #### [facility] [address] [place] [address] Dr. Yash Mckeon IG % 0.4 % Normal 0.0-0.5 [facility] Comment on above: Performed By: #### C BC #### [facility] [address] [place] [address] Dr. Yash Mckeon LYMPH # 2.8 103/ul Normal 1.2-3.8 [facility] Comment on above: Performed By: #### C BC #### [facility] [address] [place] [address] Dr. Yash Mckeon Lymphocytes/100 WBC (Bld) 25.3 % Normal 20.5-60.0 [facility] Comment on above: Performed By: #### C BC #### [facility] [address] [place] [address] Dr. Yash Mckeon MANUAL DIFF REQ NO Normal [facility] Comment on above: Performed By: #### C BC #### [facility] [address] [place] [address] Dr. Yash Mckeon MCH (RBC) [Entitic mass] 28.6 pg Normal 25.9-34.0 [facility] Comment on above: Performed By: #### C BC #### [facility] [address] [place] [address] Dr. Yash Mckeon MCHC (RBC) [Mass/Vol] 32.6 g/dL Normal 29.9-35.2 [facility] Comment on above: Performed By: #### C BC #### [facility] [address] [place] [address] Dr. Yash Mckeon MCV (RBC) [Entitic vol] 87.8 fL Normal 80.0-94.0 [facility] Comment on above: Performed By: #### C BC #### [facility] [address] [place] [address] Dr. Yash Mckeon MONO # 1.0 103/ul Critically high 0.3-0.8 [facility] Comment on above: Performed By: #### C BC #### [facility] [address] [place] [address] Dr. Yash Mckeon Monocytes/100 WBC (Bld) 8.6 % Normal 1.7-12.0 [facility] Comment on above: Performed By: #### C BC #### [facility] [address] [place] [address] Dr. Yash Mckeon NEUT # 6.9 103/ul Critically high 1.4-6.5 [facility] Comment on above: Performed By: #### C BC #### [facility] [address] [place] [address] Dr. Yash Mckeon Neutrophils/100 WBC (Bld) 61.6 % Normal 43.0-75.0 [facility] Comment on above: Performed By: #### C BC #### [facility] [address] [place] [address] Dr. Yash Mckeon Platelet mean volume (Bld) [Entitic vol] 10.0 fL Normal 9.5-13.5 [facility] Comment on above: Performed By: #### C BC #### [facility] [address] [place] [address] Dr. Yash Mckeon PLT 250 103/ul Normal 150-450 [facility] Comment on above: Performed By: #### C BC #### [facility] [address] [place] [address] Dr. Yash Mckeon RBC 5.17 106/ul Normal 4.70-6.10 [facility] Comment on above: Performed By: #### C BC #### [facility] [address] [place] [address] Dr. Yash Mckeon WBC 11.2 103/ul Critically high 4.0-11.0 [facility] Comment on above: Performed By: #### C BC #### [facility] [address] [place] [address] Dr. Yash Mckeon POINT OF CARE GLUCOSEon Glucose [Mass/Vol] 219 mg/dL Critically high 74-106 [facility] Comment on above: Performed By: #### P OCGLUC #### [facility] [address] [place] [address] Dr. Yash Mckeon PROF CHEM 8 (BAS METB)on Anion gap [Moles/Vol] 11.8 mmol/L Normal [facility] Comment on above: Performed By: #### B MP #### [facility] [address] [place] [address] [address] Yash Mckeon Calcium [Mass/Vol] 8.6 mg/dL Normal 8.5-10.1 [facility] Comment on above: Performed By: #### B MP #### [facility] [address] [place] [address] [address] Yash Mckeon Chloride [Moles/Vol] 101 mmol/L Normal 98-107 [facility] Comment on above: Performed By: #### B MP #### [facility] [address] [place] [address] Dr. Yash Mckeon CO2 [Moles/Vol] 28.0 mmol/L Normal 21.0-32.0 [facility] Comment on above: Performed By: #### B MP #### [facility] [address] [address] [address] Yash Mckeon Creatinine [Mass/Vol] 1.13 mg/dL Normal 0.70-1.30 [facility] Comment on above: Performed By: #### B MP #### [facility] [address] [place] [address] Dr. Yash Mckeon EGFR-AF WALLISIAN >60 Normal >=60 [facility] Comment on above: Performed By: #### B MP #### [facility] [address] [address] [address] Yash Mckeon EGFR-NON AF WALLISIAN >60 Normal >=60 [facility] Comment on above: Performed By: #### B MP #### [facility] [address] [address] [address] Yash Mckeon Glucose [Mass/Vol] 196 mg/dL Critically high 74-106 [facility] Comment on above: Performed By: #### B MP #### [facility] [address] [place] [address] Dr. Yash Mckeon Potassium [Moles/Vol] 3.8 mmol/L Normal 3.5-5.1 [facility] Comment on above: Performed By: #### B MP #### [facility] [address] [address] [address] Yash Mckeon Sodium [Moles/Vol] 137 mmol/L Normal 136-145 [facility] Comment on above: Performed By: #### B MP #### [facility] [address] [address] [address] Yash Mckeon Urea nitrogen [Mass/Vol] 14.0 mg/dL Normal 7.0-18.0 [facility] Comment on above: Performed By: #### B MP #### [facility] [address] [address] [address] Yash Mckeon Urea nitrogen/Creatinine [Mass ratio] 12.4 mg/mg Normal [facility] Comment on above: Performed By: #### B MP #### [facility] [address] [place] [address] Dr. Yash Mckeon PROTIMEon 10-28-2022 INR Coag (PPP) [Relative time] {INR} Normal [facility] Comment on above: Performed By: #### P OCGLUC #### [facility] [address] [place] [address] Dr. Yash Mckeon INR GUIDELINES SEE BELOW Normal [facility] Comment on above: Result Comment: ZAN RED INR: 2.0 - 3.0 CONDITIONS NOT LISTED BELOW 2.5 - 3.5 FOR PROSTHETIC HEART VALVE REPLACEMENT 2.5 - 3.5 RECURRENT THROMBOSIS Performed By: #### P OCGLUC #### [facility] [address] [place] [address] Dr. Yash Mckeon PT Coag (PPP) [Time] 9.8 s Normal 9.0-11.6 [facility] Comment on above: Performed By: #### P OCGLUC #### [facility] [address] [place] [address] Dr. Yash Mckeon PTTon 10-28-2022 aPTT Coag (Bld) [Time] 30.5 s Normal 22.3-36.2 [facility] Comment on above: Performed By: #### P OCGLUC #### [facility] [id number] Yash Mckeon XR KUB 1 VIEWon [...] by: SABI FREEMAN Date: 2022-10-28 08:00 Normal [facility] XR KUB 1 VIEWon 10-25-2022 XR [...] by: JUANITA DYKES Date: 2022-10-25 06:41 Normal [facility] XR ribs RT min 3V w CXR1V*on 10-21-2022 XR ribs RT min 3V w CXR1V* [facility] Main [place] [address] [place] [address] XRay Report Signed Patient: Brian Tse MR#: [id number] : 1980 Acct:[id number] Age/Sex: 41 / M ADM Date: 10/21/22 [facility] Attending Dr: Domonique Myers APRN Copies [...] Linda Sierra M.D.10/21/2022 2:10 PM Dictation Location: [place] [address] Transcribed By: [facility] 10/21/22 1410 Dictated By: Linda Sierra MD 10/21/22 1406 Signed By: 10/21/[address] [facility] CHEMISTRYOrdered By: Lab ROP User on 05-20-2022 Glucose [Mass/Vol] 173 mg/dL High 55 - 99 mg/dL [facility] [place] Subsection Comment on above: Result Comment: Dayanara alcantar RN/ POC Device SN [id number] Invalid Interpretation Code [facility] Subsection POC User ID [id number] Invalid Interpretation Code [facility] Subsection POC Username CHINEDU POSADAS Invalid Interpretation Code [facility] Subsection CHEMISTRYOrdered By: SYSTEM SYSTEM on 05-13-2022 Anion gap [Moles/Vol] 15 mmol/L Normal 6 - 16 mEq/L [facility] Remisol Chloride [Moles/Vol] 102 mmol/L Normal 101 - 1 11 mmol/L [facility] Remisol CO2 [Moles/Vol] 22 mmol/L Normal 21 - 31 mmol/L [facility] Remisol Creatinine [Mass/Vol] 1.1 mg/dL Normal 0.5 - 1.3 mg/dL [facility] Remisol GFR/1.73 sq M.predicted among blacks MDRD (S/P/Bld) [Vol rate/Area] mL/min/1.73 m2 Normal >=59mL/min/1 .73 m2 [facility] Chem S GFR/1.73 sq M.predicted among non-blacks MDRD (S/P/Bld) [Vol rate/Area] mL/min/1.73 m2 Normal >=59mL/min/1 .73 m2 [facility] Chem S Glucose [Mass/Vol] 171 mg/dL Normal [...] 9.1 E9/L Normal 4.0 - 11.0 E9/L [facility] HemeAutoSS CALCULI, URINARYon 2 2,8 Dihydroxyadenine Normal [facility] Comment on above: Performed By: #### P OCGLUC #### [facility] [address] [place], [place] [address] Dr. Yash Mckeon Ammonium Acid Urate Normal [facility] Comment on above: Performed By: #### P OCGLUC #### [facility] [address] [address] [address] Yash Mckeon Bilirubin Ql (U) Normal [facility] Comment on above: Performed By: #### P OCGLUC #### [facility] [address] [address] [address] Yash Mckeon Ca Oxalate Dihydrate Normal [facility] Comment on above: Performed By: #### P OCGLUC #### [facility] [address] [address] [address] Yash Mckeon CaHPO4 (Brushite) [place] [facility] Comment on above: Performed By: #### P OCGLUC #### [facility] [address] [address] [address] Yash Mckeon Calcium Bilirubinate Normal [facility] Comment on above: Performed By: #### P OCGLUC #### [facility] [address] [address] [address] Yash Mckeon Calcium Carbonate [facility] Comment on above: Performed By: #### P OCGLUC #### [facility] [address] [address] [address] Yash Mckeon Calcium Oxalate Monohydrate [facility] Comment on above: Performed By: #### P OCGLUC #### [facility] [address] [address] [address] Yash Mckeon Calcium Palmitate Normal [facility] Comment on above: Performed By: #### P OCGLUC #### [facility] [address] [address] [address] Yash Mckeon Calcium Phosphate Normal [facility] Comment on above: Performed By: #### P OCGLUC #### [facility] [address] [address] [address] Yash Mckeon Calcium Stearate Normal [facility] Comment on above: Performed By: #### P OCGLUC #### [facility] [address] [address] [address] Yash Mckeon Carbonate Apatite Normal [facility] Comment on above: Performed By: #### P OCGLUC #### [facility] [address] [address] [address] Yash Mckeon Cellular Material [facility] Comment on above: Performed By: #### P OCGLUC #### [facility] [address] [address] [address] Yash Mckeon Cholesterol [facility] Comment on above: Performed By: #### P OCGLUC #### [facility] [address] [address] [address] Yash Mckeon Color (U) Quigley Normal [facility] Comment on above: Performed By: #### P OCGLUC #### [facility] [address] [address] [address] Yash Mckeon Comment Comment [facility] Comment on above: Result Comment: Lolly talline substances normally associated with human calculi were not identified. Specimen is consistent with organic material. Insufficient sample to perform additional, confirmatory, or reference testing. Performed By: #### P OCGLUC #### [facility] [address] [address] [address] Yash Mckeon Comment [facility] Comment on above: Performed By: #### P OCGLUC #### [facility] [address] [address] [address] Yash Mckeon Comment: Comment [facility] Comment on above: Result Comment: Diego gage questions regarding Calculi Analysis contact [employer] at: [phone]. Performed By: #### P OCGLUC #### [facility] [address] [address] [address] Yash Mckeon Composition Comment [facility] Comment on above: Result Comment: Plea se see comment Performed By: #### P OCGLUC #### [facility] [address] [address] [address] Yash Mckeon Cystine [facility] Comment on above: Performed By: #### P OCGLUC #### [facility] [address] [address] [address] Yash Mckeon Disclaimer: Comment [facility] Comment on above: Result Comment: This test was developed and its performance characteristics determined by [facility]. It has not been cleared or approved by the Food and Drug Administration. Performed By: #### P OCGLUC #### [facility] [address] [address] [address] Yash Mckeon Dried Blood [facility] Comment on above: Performed By: #### P OCGLUC #### [facility] [address] [address] [address] Yash Mckeon Drug or Metabolite Normal [facility] Comment on above: Performed By: #### P OCGLUC #### [facility] [address] [address] [address] Yash Mckeon Hydroxyapatite [facility] Comment on above: Performed By: #### P OCGLUC #### [facility] [address] [address] [address] Yash Mckeon Mg NH4 PO4 (Struvite) [facility] Comment on above: Performed By: #### P OCGLUC #### [facility] [address] [place] [address] Dr. Yash Mckeon MgHPO4 (Newberyite) [facility] Comment on above: Performed By: #### P OCGLUC #### [facility] [address] [address] [address] Yash Mckeon Other component(s) [facility] Comment on above: Performed By: #### P OCGLUC #### [facility] [address] [address] [address] Yash Mckeon PDF . [facility] Comment on above: Performed By: #### P OCGLUC #### [facility] [address] [address] [address] Yash Mckeon Photo TNP [facility] Comment on above: Result Comment: Test not performed No photo available Performed By: #### P OCGLUC #### [facility] [address] [address] [address] Yash Mckeon Please note: Comment [facility] Comment on above: Result Comment: Calc terry report will follow via computer, mail or theater projectionist delivery. Performed By: #### P OCGLUC #### [facility] [address] [address] [address] Yash Mckeon Size <1 [facility] Comment on above: Result Comment: Too small to measure. Performed By: #### P OCGLUC #### [facility] [address] [address] [address] Yash Mckeon Sodium Acid Urate [facility] Comment on above: Performed By: #### P OCGLUC #### [facility] [address] [address] [address] Yash Mckeon Source Comment [facility] Comment on above: Result Comment: Not provided Performed By: #### P OCGLUC #### [facility] [address] [address] [address] Yash Mckeon Triamterene [facility] Comment on above: Performed By: #### P OCGLUC #### [facility] [address] [place] [address] Dr. Yash Mckeon Uric Acid [facility] Comment on above: Performed By: #### P OCGLUC #### [facility] [address] [address] [address] Yash Mckeon Uric Acid Dihydrate [facility] Comment on above: Performed By: #### P OCGLUC #### [facility] [address] [address] [address] Yash Mckeon Weight <1 [facility] Comment on above: Result Comment: Too small to weigh Performed By: #### P OCGLUC #### [facility] [address] [address] [address] Yash Mckeon Xanthine [facility] Comment on above: Performed By: #### P OCGLUC #### [facility] [address] [address] [address] Yash Mckeon CBC AUTO DIFFon 04-04-2022 BASO # 0.1 103/ul Normal 0.0-0.1 [facility] Comment on above: Performed By: #### C BC #### [facility] [address] [address] [address] Yash Mckeon Basophils/100 WBC (Bld) 0.9 % Normal 0.2-2.0 [facility] Comment on above: Performed By: #### C BC #### [facility] [address] [address] [address] Yash Mckeon EO # 0.4 103/ul Normal 0.0-0.7 [facility] Comment on above: Performed By: #### C BC #### [facility] [address] [address] [address] Yash Mckeon Eosinophils/100 WBC (Bld) 3.3 % Normal 0.9-7.0 [facility] Comment on above: Performed By: #### C BC #### [facility] [address] [place] [address] Dr. Yash Mckeon Erythrocyte distribution width (RBC) [Ratio] 13.8 % Normal 11.0-15.0 [facility] Comment on above: Performed By: #### C BC #### [facility] [address] [place] [address] Dr. Yash Mckeon Hematocrit (Bld) [Volume fraction] 48.7 % Normal 42.0-54.0 [facility] Comment on above: Performed By: #### C BC #### [facility] [address] [place] [address] Dr. Yash Mckeon Hemoglobin (Bld) [Mass/Vol] 16.1 g/dL Normal 14.0-18.0 [facility] Comment on above: Performed By: #### C BC #### [facility] [address] [address] [address] Yash Mckeon IG # 0.06 10e3/ul Critically high 0.00-0.03 [facility] Comment on above: Performed By: #### C BC #### [facility] [address] [place] [address] Dr. Yash Mckeon IG % 0.5 % Normal 0.0-0.5 [facility] Comment on above: Performed By: #### C BC #### [facility] [address] [place] [address] Dr. Yash Mckeon LYMPH # 4.1 103/ul Critically high 1.2-3.8 [facility] Comment on above: Performed By: #### C BC #### [facility] [address] [place] [address] Dr. Yash Mckeon Lymphocytes/100 WBC (Bld) 33.3 % Normal 20.5-60.0 [facility] Comment on above: Performed By: #### C BC #### [facility] [address] [place] [address] Dr. Yash Mckeon MANUAL DIFF REQ NO Normal [facility] Comment on above: Performed By: #### C BC #### [facility] [address] [place] [address] Dr. Yash Mckeon MCH (RBC) [Entitic mass] 29.0 pg Normal 25.9-34.0 [facility] Comment on above: Performed By: #### C BC #### [facility] [address] [place] [address] Dr. Yash Mckeon MCHC (RBC) [Mass/Vol] 33.1 g/dL Normal 29.9-35.2 [facility] Comment on above: Performed By: #### C BC #### [facility] [address] [place] [address] Dr. Yash Mckeon MCV (RBC) [Entitic vol] 87.6 fL Normal 80.0-94.0 [facility] Comment on above: Performed By: #### C BC #### [facility] [address] [place] [address] Dr. Yash Mckeon MONO # 1.0 103/ul Critically high 0.3-0.8 [facility] Comment on above: Performed By: #### C BC #### [facility] [address] [place] [address] Dr. Yash Mckeon Monocytes/100 WBC (Bld) 8.2 % Normal 1.7-12.0 [facility] Comment on above: Performed By: #### C BC #### [facility] [address] [place] [address] Dr. Yash Mckeon NEUT # 6.6 103/ul Critically high 1.4-6.5 [facility] Comment on above: Performed By: #### C BC #### [facility] [address] [address] [address] Yash Mckeon Neutrophils/100 WBC (Bld) 53.8 % Normal 43.0-75.0 [facility] Comment on above: Performed By: #### C BC #### [facility] [address] [place] [address] Dr. Yash Mckeon Platelet mean volume (Bld) [Entitic vol] 10.5 fL Normal 9.5-13.5 [facility] Comment on above: Performed By: #### C BC #### [facility] [address] [place] [address] Dr. Yash Mckeon PLT 260 103/ul Normal 150-450 [facility] Comment on above: Performed By: #### C BC #### [facility] [address] [place] [address] Dr. Yash Mckeon RBC 5.56 106/ul Normal 4.70-6.10 [facility] Comment on above: Performed By: #### C BC #### [facility] [address] [place] [address] Dr. Yash Mckeon WBC 12.2 103/ul Critically high 4.0-11.[address] [facility] Comment on above: Performed By: #### C BC #### [facility] [address] [place] [address] ABD/PELVIS WO CONon [...] JUANITA DYKES Date: 2022-04-04 08:43 Normal [facility] CULTURE URINEon 04-04-2022 CULTURE URINE Culture Observations : LIGHT GROWTH OF MIXED SKIN BRIANNA. NO POTENTIAL PATHOGENS SEEN. Normal [facility] Comment on above: Performed By: #### P OCGLUC #### [facility] [address] [place] [address] Dr. Yash Mckeon ER URINE PROFILEon 2 Bilirubin Ql (U) Negative Normal NEGATIVE [facility] Comment on above: Performed By: #### E ALLIE UMICRO #### [facility] [address] [place] [address] Dr. Yash Mckeon Clarity (U) SL CLOUDY Abnormal CLEAR [facility] Comment on above: Performed By: #### E RUR UMICRO #### [facility] [address] [place] [address] Dr. Yash Mckeon Color (U) BROWN Abnormal YELLOW [facility] Comment on above: Performed By: #### E RUR UMICRO #### [facility] [address] [place] [address] Dr. Yash Mckeon ERUAHD A micrscopic examination will be performed if indicated. Normal [facility] Comment on above: Performed By: #### SUNIL STEPHENSRO #### [facility] [address] [address] [address] Yash Mckeon Glucose Ql (U) 100 mg/dl Abnormal NEGATIVE [facility] Comment on above: Performed By: #### SUNIL STEPHENSRO #### [facility] [address] [place] [address] Dr. Yash Mckeon Hemoglobin Ql (U) LARGE Abnormal NEGATIVE [facility] Comment on above: Performed By: #### LYN STEPHENSICRO #### [facility] [address] [place] [address] Dr. Yash Mckeon Ketones Ql (U) TRACE Abnormal NEGATIVE [facility] Comment on above: Performed By: #### Vincenzo KELLEY UMICRO #### [facility] [address] [place] [address] Dr. Yash Mckeon LEUKOCYTES Negative Normal NEGATIVE [facility] Comment on above: Performed By: #### SUNIL STEPHENSRO #### [facility] [address] [place] [address] Dr. Yash Mckeon Nitrite Ql (U) Positive Abnormal NEGATIVE [facility] Comment on above: Performed By: #### SUNIL STEPHENSRO #### [facility] [address] [place] [address] Dr. Yash Mckeon pH (U) 5.0 [pH] Normal 5-9 [facility] Comment on above: Performed By: #### SUNIL STEPHENSRO #### [facility] [address] [place] [address] Dr. Yash Mckeon Protein (U) [Mass/Vol] 100 mg/dL Abnormal NEGATIVE/ TRACE [facility] Comment on above: Performed By: #### SUNIL STEPHENSRO #### [facility] [address] [place] [address] Dr. Yash Mckeon SPEC GRAVITY >=1.030 Abnormal 1.005-<=1.02 5 [facility] Comment on above: Performed By: #### SUNIL STEPHENSRO #### [facility] [address] [place] [address] Dr. Yash Mckeon UR MICRO IND INDICATED Normal [facility] Comment on above: Performed By: #### KALEIGH STEPHENS #### [facility] [address] [place] [address] Dr. Yash Mckeon Urobilinogen Qn (U) 1.0 {Nathaniel'U}/dL Normal 0.2 - 1. 0 [facility] Comment on above: Performed By: #### KALEIGH STEPHENS #### [facility] [address] [place] [address] Dr. Yash Mckeon PROF CHEM 8 (BAS METB)on Anion gap [Moles/Vol] 16.0 mmol/L Normal [facility] Comment on above: Performed By: #### B MP #### [facility] [address] [place] [address] Dr. Yash Mckeon Calcium [Mass/Vol] 8.5 mg/dL Normal 8.5-10.1 [facility] Comment on above: Performed By: #### B MP #### [facility] [address] [place] [address] Dr. Yash Mckeon Chloride [Moles/Vol] 102 mmol/L Normal 98-107 [facility] Comment on above: Performed By: #### B MP #### [facility] [address] [place] [address] Dr. Yash Mckeon CO2 [Moles/Vol] 23.6 mmol/L Normal 21.0-32.[address] [facility] Comment on above: Performed By: #### B MP #### [facility] [address] [place] [address] Dr. Yash Mckeon Creatinine [Mass/Vol] 1.17 mg/dL Normal 0.70-1.30 [facility] Comment on above: Performed By: #### B MP #### [facility] [address] [place] [address] Dr. Yash Mckeon EGFR-AF WALLISIAN >60 Normal >=[address] [facility] Comment on above: Performed By: #### B MP #### [facility] [address] [place] [address] Dr. Yash Mckeon EGFR-NON AF WALLISIAN >60 Normal >=60 [facility] Comment on above: Performed By: #### B MP #### [facility] [address] [place] [address] Dr. Yash Mckeon Glucose [Mass/Vol] 234 mg/dL Critically high 74-106 [facility] Comment on above: Performed By: #### B MP #### [facility] [address] [place] [address] Dr. Yash Mckeon Potassium [Moles/Vol] 3.6 mmol/L Normal 3.5-5.1 [facility] Comment on above: Performed By: #### B MP #### [facility] [address] [place] [address] Dr. Yash Mckeon Sodium [Moles/Vol] 138 mmol/L Normal 136-145 [facility] Comment on above: Performed By: #### B MP #### [facility] [address] [place] [address] Dr. Yash Mckeon Urea nitrogen [Mass/Vol] 8.0 mg/dL Normal 7.0-18.0 [facility] Comment on above: Performed By: #### B MP #### [facility] [address] [place] [address] Dr. Yash Mckeon Urea nitrogen/Creatinine [Mass ratio] 6.8 mg/mg Normal [facility] Comment on above: Performed By: #### B MP #### [facility] [address] [place] [address] Dr. Yash Mckeon URINE MICROSCOPIC ONLYon BACTERIA TRACE Abnormal NONE SEEN [facility] Comment on above: Performed By: #### KALEIGH STEPHENS #### [facility] [address] [place] [address] Dr. Yash Mckeon Bacteria identified Cx Nom (U) INDICATED Normal [facility] Comment on above: Performed By: #### KALEIGH STEPHENS #### [facility] [address] [place] [address] Dr. Yash Mckeon CAST NONE SEEN Normal NONE SEEN [facility] Comment on above: Performed By: #### Vincenzo KELLEY UMICRO #### [facility] [address] [place] [address] Dr. Yash Mckeon Crystals LM Nom (Urine sed) NONE SEEN Normal NONE SEEN [facility] Comment on above: Performed By: #### Vincenzo KELLEY, UMICRO #### [facility] [address] [place] [address] Dr. Yash Mckeon Epithelial cells LM Ql (Urine sed) RARE Normal NONE SEEN /RARE [facility] Comment on above: Performed By: #### Vincenzo KELLEY UMICRO #### [facility] [address] [place] [address] Dr. Yash Mckeon MUCOUS NONE SEEN Normal NONE SEEN [facility] Comment on above: Performed By: #### Vincenzo KELLEY UMICRO #### [facility] [address] [place] [address] Dr. Yash Mckeon RBC 20-50 Abnormal 0-2 [facility] Comment on above: Performed By: #### Vincenzo KELLEY UMICRO #### [facility] [address] [place] [address] Dr. Yash Mckeon WBC 0-2 Abnormal NONE SEEN [facility] Comment on above: Performed By: #### Vincenzo KELLEY UMICRO #### [facility] [address] [place] [address] Dr. Yash Mckeon CBC AUTO DIFFon 02-17-2022 BASO # 0.1 103/ul Normal 0.0-0.1 [facility] Comment on above: Performed By: #### C BC #### [facility] [address] [place] [address] Dr. Yash Mckeon Basophils/100 WBC (Bld) 0.7 % Normal 0.2-2.0 [facility] Comment on above: Performed By: #### C BC #### [facility] [address] [place] [address] Dr. Yash Mckeon EO # 0.2 103/ul Normal 0.0-0.7 [facility] Comment on above: Performed By: #### C BC #### [facility] [address] [place] [address] Dr. Yash Mckeon Eosinophils/100 WBC (Bld) 1.6 % Normal 0.9-7.0 [facility] Comment on above: Performed By: #### C BC #### [facility] [address] [place] [address] Dr. Yash Mckeon Erythrocyte distribution width (RBC) [Ratio] 14.3 % Normal 11.0-15.0 [facility] Comment on above: Performed By: #### C BC #### [facility] [address] [place] [address] Dr. Yash Mckeon Hematocrit (Bld) [Volume fraction] 47.1 % Normal 42.0-54.0 [facility] Comment on above: Performed By: #### C BC #### [facility] [address] [place] [address] Dr. Yash Mckeon Hemoglobin (Bld) [Mass/Vol] 15.7 g/dL Normal 14.0-18.0 [facility] Comment on above: Performed By: #### C BC #### [facility] [address] [place] [address] Dr. Yash Mckeon IG # 0.05 10e3/ul Critically high 0.00-0.03 [facility] Comment on above: Performed By: #### C BC #### [facility] [address] [place] [address] Dr. Yash Mckeon IG % 0.5 % Normal 0.0-0.5 [facility] Comment on above: Performed By: #### C BC #### [facility] [address] [place] [address] Dr. Yash Mckeon LYMPH # 2.9 103/ul Normal 1.2-3.8 [facility] Comment on above: Performed By: #### C BC #### [facility] [address] [place] [address] Dr. Yash Mckeon Lymphocytes/100 WBC (Bld) 29.8 % Normal 20.5-60.0 [facility] Comment on above: Performed By: #### C BC #### [facility] [address] [place] [address] Dr. Yash Mckeon MANUAL DIFF REQ NO Normal [facility] Comment on above: Performed By: #### C BC #### [facility] [address] [place] [address] Dr. Yash Mckeon MCH (RBC) [Entitic mass] 29.2 pg Normal 25.9-34.0 [facility] Comment on above: Performed By: #### C BC #### [facility] [address] [place] [address] Dr. Yash Mckeon MCHC (RBC) [Mass/Vol] 33.3 g/dL Normal 29.9-35.2 [facility] Comment on above: Performed By: #### C BC #### [facility] [address] [place] [address] Dr. Yash Mckeon MCV (RBC) [Entitic vol] 87.7 fL Normal 80.0-94.0 [facility] Comment on above: Performed By: #### C BC #### [facility] [address] [place] [address] Dr. Yash Mckeon MONO # 0.7 103/ul Normal 0.3-0.8 [facility] Comment on above: Performed By: #### C BC #### [facility] [address] [place] [address] Dr. Yash Mckeon Monocytes/100 WBC (Bld) 6.8 % Normal 1.7-12.0 [facility] Comment on above: Performed By: #### C BC #### [facility] [address] [place] [address] Dr. Yash Mckeon NEUT # 5.9 103/ul Normal 1.4-6.5 [facility] Comment on above: Performed By: #### C BC #### [facility] [address] [place] [address] Dr. Yash Mckeon Neutrophils/100 WBC (Bld) 60.6 % Normal 43.0-75.0 [facility] Comment on above: Performed By: #### C BC #### [facility] [address] [place] [address] Dr. Yash Mckeon Platelet mean volume (Bld) [Entitic vol] 10.3 fL Normal 9.5-13.5 [facility] Comment on above: Performed By: #### C BC #### [facility] [address] [place] [address] Dr. Yash Mckeon PLT 240 103/ul Normal 150-450 [facility] Comment on above: Performed By: #### C BC #### [facility] [address] [place] [address] Dr. Yash Mckeon RBC 5.37 106/ul Normal 4.70-6.10 [facility] Comment on above: Performed By: #### C BC #### [facility] [address] [place] [address] Dr. Yash Mckeon WBC 9.8 103/ul Normal 4.0-11.0 [facility] Comment on above: Performed By: #### C BC #### [facility] [address] [place] [address] Dr. Yash Mckeon [facility] SARS-CoV-2 (COVID-19) RNA TALIB+probe Ql (Unsp spec) Not detected Normal NOT DETECTED [facility] Comment on above: Result Comment: When [...] for this test is supported by the [place] of [employer] and Human Service's declaration that [...] used). Performed By: #### C VDTBH #### [facility] [address] [place] [address] Dr. Yash Mckeon D-DIMERon 02-17-2022 D-DIMER <0.19 Normal <=0.59 [facility] Comment on above: Performed By: #### D DIM #### [facility] [address] [place] [address] Dr. Yash Mckeon D-DIMER COMMENTS SEE BELOW Normal [facility] Comment on above: Result Comment: Incr [...] hospitalization. Performed By: #### D DIM #### [facility] [address] [place] [address] Dr. Yash Mckeon PROF CHEM 8 (BAS METB)on Anion gap [Moles/Vol] 13.0 mmol/L Normal [facility] Comment on above: Performed By: #### P OCGLUC #### [facility] [address] [place] [address] Dr. Yash Mckeon Calcium [Mass/Vol] 9.2 mg/dL Normal 8.5-10.1 [facility] Comment on above: Performed By: #### P OCGLUC #### [facility] [address] [place] [address] Dr. Yash Mckeon Chloride [Moles/Vol] 102 mmol/L Normal 98-107 [facility] Comment on above: Performed By: #### P OCGLUC #### [facility] [address] [place] [address] Dr. Yash Mckeon CO2 [Moles/Vol] 28.2 mmol/L Normal 21.0-32.0 [facility] Comment on above: Performed By: #### P OCGLUC #### [facility] [address] [address] [address] Yash Mckeon Creatinine [Mass/Vol] 1.10 mg/dL Normal 0.70-1.30 [facility] Comment on above: Performed By: #### P OCGLUC #### [facility] [address] [address] [address] Yash Mckeon EGFR-AF WALLISIAN >60 Normal >=60 [facility] Comment on above: Performed By: #### P OCGLUC #### [facility] [address] [address] [address] Yash Mckeon EGFR-NON AF WALLISIAN >60 Normal >=60 [facility] Comment on above: Performed By: #### P OCGLUC #### [facility] [address] [address] [address] Yash Mckeon Glucose [Mass/Vol] 174 mg/dL Critically high 74-106 T [facility] Comment on above: Performed By: #### P OCGLUC #### [facility] [address] [address] [address] Yash Mckeon Potassium [Moles/Vol] 4.2 mmol/L Normal 3.5-5.1 [facility] Comment on above: Performed By: #### P OCGLUC #### [facility] [address] [place] [address] Dr. Yash Mckeon Sodium [Moles/Vol] 139 mmol/L Normal 136-145 [facility] Comment on above: Performed By: #### P OCGLUC #### [facility] [address] [address] [address] Yash Mckeon Urea nitrogen [Mass/Vol] 12.0 mg/dL Normal 7.0-18.0 [facility] Comment on above: Performed By: #### P OCGLUC #### [facility] [address] [address] [address] Yash Mckeon Urea nitrogen/Creatinine [Mass ratio] 10.9 mg/mg Normal [facility] Comment on above: Performed By: #### P OCGLUC #### [facility] [address] [address] [address] Yash Mckeon TROPONIN, HIGH SENSITIVITYon 02-17-2022 HSTROP <4.0 Normal 4.0-76.1 [facility] Comment on above: Result Comment: CUT- OFF POINTS HAVE BEEN ESTABLISHED BASED ON THE FOURTH UNIVERSAL DEFINITIONS OF MYOCARDIAL INFARCTION. THE UPPER REFERENCE LIMIT (URL) OF TROPONIN, DEFINED THE 99TH PERCENTILE OF cTnI DISTRIBUTION IN A REFERENCE POPULATION, HAS BEEN CONFIRMED THE DECISION THRESHOLD FOR [place] DIAGNOSIS. Performed By: #### P OCGLUC #### [facility] [address] [address] [address] Yash Mckeon XR RIBS RT PA [...] JUANITA DYKES Date: 2022-02-17 15:26 Normal [facility] BASIC METABOLIC PANELon 08-25 Anion gap [Moles/Vol] 17 mmol/L Normal 10 - 20 [facility] Comment on above: Performed By: #### B MP #### [facility] [address] [place], [id number] Calcium [Mass/Vol] 8.7 mg/dL Normal 8.6 - 10.3 [facility] Comment on above: Performed By: #### B MP #### [facility] [address] [place] [address] Chloride [Moles/Vol] 103 mmol/L Normal 98 - 107 [facility] Comment on above: Performed By: #### B MP #### [facility] [address] [place] [address] Creatinine [Mass/Vol] 0.88 mg/dL Normal 0.50 - 1.30 [facility] Comment on above: Performed By: #### B MP #### [address] [place] [address] GFR- AM. >60 Normal >60 [facility] Comment on above: Result Comment: CALC ULATIONS OF ESTIMATED GFR ARE PERFORMED USING THE MDRD STUDY EQUATION FOR THE IDMS-TRACEABLE CREATININE METHODS. CLIN CHEM 2007;53:766-72 Performed By: #### B MP #### [address] [place] [address] GFR-NON AM. >60 Normal >60 [facility] Comment on above: Performed By: #### B MP #### [address] [place] [address] Glucose [Mass/Vol] 252 mg/dL High 74 - 99 [facility] Comment on above: Performed By: #### B MP #### [address] [place] [address] HCO3 (Bld) [Moles/Vol] 19 mmol/L Low 21 - 32 [facility] Comment on above: Performed By: #### B MP #### [address] [place] [address] Potassium [Moles/Vol] 4.1 mmol/L Normal 3.5 - 5.3 [facility] Comment on above: Performed By: #### B MP #### [address] [place] [address] Sodium [Moles/Vol] 135 mmol/L Low 136 - 145 [facility] Comment on above: Performed By: #### B MP #### [address] [place] [address] Urea nitrogen [Mass/Vol] 13 mg/dL Normal 6 - 23 [facility] Comment on above: Performed By: #### B MP #### [address] [place] [address] GLUCOSE-POCTon 09-05-2020 Glucose [Mass/Vol] 276 mg/dL High 74 - 99 [facility] Comment on above: Performed By: #### Jeffy GUIDO #### [address] [place] [address] History and Physical - Surgi kellie Update [...] Last Updated: 05-Sep-2020 11:26 by Nicky Swartz) [facility] Operative Reports - [place] 09-05-2020 Operative Reports - [place] PREOPERATIVE INDICATION: Phimosis. PREOPERATIVE DIAGNOSIS: Phimosis. POSTOPERATIVE [...] NICKY SWARTZ MD EST EST DICTATION NUMBER: [id number] INTERNAL JOB NUMBER: [id number] Electronic Signatures: Nicky Swartz) (Signed on 15-Sep-2020 07:34) Authored Unsigned, Draft (SYS GENERATED) (Entered on 06-Sep-2020 07:26) Entered Last Updated: 15-Sep-2020 07:34 by Nicky Swartz) [facility] Order Reconciliationon 09-05 Order Reconciliation Page [...] be shared with your follow-up providers (doctor, baller tender, physical therapist, etc.). Follow Up with in [...] be shared with your follow-up providers (doctor, baller tender, physical therapist, etc.). Follow Up with in [...] but has not started this yet Normal [facility] 09-05-2020 [place] [facility] Name BRIAN TSE Pathologist: CHRIS MACEDO [...] 2.5 x 0.5 x 0.5 cm respectively. Cops sections are submitted in 1 cassette. TNB tnb/09/05/2020 [facility] Department of Pathology [address] [place] [address] Normal [facility] Comment on above: Performed By: #### P AH #### [facility] [address] [place] [facility] [address] Preop Checkliston 09-05-2020 Preop Checklist Preop Checklist: Preop Checklist: Arrival [id number] Arrival Time09:42 Procedure TypeCIRCUMCISION Temperature C36.2 degrees C Temperature F97.1 degrees F Heart Rate70 beats per minute Respiratory Rate18 breath per minute Blood Pressure Ntphtjln676 mm/Hg Blood Pressure Zogbjdghi59 mm/Hg ID Band Onyes Allergy Bandno known [...] Communication: Language / CommunicationEnglish Electronic Signatures: Zainab Laguna (SUKHJINDER) (Signed 05-Sep-2020 09:48) Authored: Preop Checklist Last Updated: 05-Sep-2020 09:48 by Zainab Laguna) Normal [facility] URINE CULTURE,BACTERIALon URINE CULTURE,BACTERIAL PATIENT: BRIAN TSE LOCATION: [facility] BILL#: [id number] : 82 AGE: SEX: M ORDERED BY: NICKY SWARTZ SOURCE: URINE COLLECTED: 09/05/20 08:16 ANTIBIOTICS AT REINA.: RECEIVED : 09/05/20 11:32 SITE: R E S U L T S URINE CULTURE,BACTERIAL FINAL 09/06/20 07:51 NO SIGNIFICANT GROWTH. Normal [facility] Comment on above: Performed By: #### U RINC #### [facility] [address] [place] [address] CORONAVIRUS 2019, SCREEN ASY MPTOMATICon 09-03-2020 CORONAVIRUS 2019,PCR NOT DETECTED Normal Not Detected [facility] Comment on above: Result Comment: . [...] patient management decisions. Fact sheet for providers: https://www.fda.gov/media/901028/download Fact sheet for patients: https://www.fda.gov/media/820436/download This test has received FDA Emergency Use Authorization (EUA) and has been verified by [facility] ([facility]). This test is only authorized for the duration of time that circumstances exist to justify the authorization of the emergency use of in vitro diagnostic tests for the detection of SARS-CoV-2 virus and/or diagnosis of COVID-19 infection under section 564(b)(1) of the Act, 21 U.S.C. 360bbb-3(b)(1), unless the authorization is terminated or revoked sooner. [facility] is certified under CLIA-88 as qualified to perform high complexity testing. Testing is performed in the [facility] laboratories located at [address] [place] [address]. Performed By: #### C OVSC #### [address] [place] [address] Lab Specimen Source Nasal, Nasopharyngeal Normal [facility] Comment on above: Performed By: #### C OVSC #### [address] [place] [address] Covid 19 Resultson Covid 19 Results NEGATIVE [...] You may also be contacted by the [facility] to see if any of your close [...] or Naproxen (Aleve) can also be used. Gcay-sad-tnutqwc cough and cold medicines can be used according to the instructions on the package. Some vkrz-svx-xwgpmyy medicines also contain acetaminophen. Make sure you [...] water are not available, use alcohol-based hand mold blower. Avoid touching your eyes, nose, and mouth [...] a total of 10 days. Additional resources: [facility] COVID Hotline at 3-299-4ZXXNYI ( ). COVID-19 Careline at (availabl e 24 hours per day, seven days a week if you or a loved one is experiencing anxiety related to the coronavirus pandemic). Clinical research opportunities: is conducting research studies to develop better testing and treatments for COVID. Do you want any information on how to participate Call [phone]. Websites: hospitals.org or www.CDC.gov Follow My Health / My UHCare (for other test results): Revised 06/10/2020 Electronic Signatures: Satinder Rajan (ADMIN) (Signature pending) Authored Last Updated: 03-Sep-2020 21:24 by Satinder Rajan (ADMIN) Normal [facility] CNOVon 10-14-2017 CNOV Office Visit (LOORRM) JOSE A REID,BRIAN Winters ([id number]) 1980 [facility] Department10/14/17 11:00 AM NAHOMY SHARP) [...] 60 tabletRfl: 1 CONSULT TO PHYSICAL THERAPY [9057] Order #: [id number]: 1Prescriptions as of 10/14/2017 Sig: ATORVASTATIN 10 [...] Historical Med Sig: Disc: Erroneous entryEncounter Number: [id number] Status:Closed by NAHOMY SHARP PA-C on 10/14/17 [facility] PROGRESSon 10-14-2017 PROGRESS HNO ID: [id number]: Nahomy Sharp (Pa)Service: (none)Author Type: Physician AssistantType: [...] fileFAMILY HISTORY:No family history on file. Normal [facility] PROGRESS HNO ID: [id number]: Nahomy Sharp (Pa)Service: Orthopaedic SurgeryAuthor Type: Physician AssistantType: Progress NotesFiled: 10/20/2017 3:42 PMNote Text: [facility] [address] [place] [address] CLINIC NOTE Department of Orthopaedics - CYNTHIA KeitaCNAME: TSEBRIAN NO.: [id number] OF SERVICE: 10/14/2017CHIEF COMPLAINT: Right shoulder pain.HISTORY [...] doeshelp some temporarily. [facility] followed by an MRI. He is here todayfor further evaluation and discussion of treatment. He is npfo-mujjpft-eufogequw diabetic who was under poor control several [...] patient today on disk from 09/13/2017done at [facility] were personally interpreted andreviewed with the patient today. They show some AC joint arthritis. Goodacromiohumeral distance. No significant glenohumeral arthritis. Noevidence of fracture. No other osseous abnormalities.MRI: MRI dated 10/01/2017 from [facility] shows a mildrotator cuff tendinosis, [...] for physical therapy, which he will do[facility] [place] for 4-6 weeks. Will follow up in 6 weeks formikel. Discussed possibly a cortisone injection at that time ifnecessary. Declines today as he does not like needles.Dictated By: Pepe Zurita Dictated: 10/19/2017Date Typed: [facility] 10/19/2017[facility]# [id number] Normal [facility] SR-MRI Shoulder w/o Contrast Right IMPORTon 10-01-2017 SR-MRI Shoulder w/o Contrast Right IMPORT Images were obtained outside of [facility] [id number] Normal [facility] SR-XR Shoulder Complete Righ t IMPORTon 09-13-2017 SR-XR Shoulder Complete Right IMPORT Images were obtained outside of [facility] [id number] Normal [facility] Vital Signs Date Time Vital Sign Value Performing Clinician Facility 02-14-2024 16:11-0400 Body temperature 98.78 [degF] [facility] 02-14-2024 16:11-0400 Diastolic blood pressure 86 mm[Hg] [facility] 02-14-2024 16:11-0400 Heart rate 79 /min [facility] 02-14-2024 16:11-0400 Respiratory rate 18 /min [facility] 02-14-2024 16:11-0400 SaO2% (BldA) [Mass fraction] 98 % [facility] 02-14-2024 16:11-0400 Systolic blood pressure 131 mm[Hg] [facility] 2023 11:48-0400 Body height 176.5 cm Yuko MITCHELL Work Phone: [facility] 2023 11:48-0400 Body mass index (BMI) [Ratio] 31.16 kg/m2 Yuko Waite APRN-WRINGER AND SETTER Work Phone: [facility] 2023 11:48-0400 Body temperature 98.1 [degF] Yuko Waite APRN-WRINGER AND SETTER Work Phone: [facility] 2023 11:48-0400 Body weight 97.07 kg Yuko Waite VIDEOGAME DESIGNER-WRINGER AND SETTER Work Phone: [facility] 2023 11:48-0400 Diastolic blood pressure 74 mm[Hg] Yuko Waite VIDEOGAME DESIGNER-WRINGER AND SETTER Work Phone: [facility] 2023 11:48-0400 Heart rate 65 /min Yuko Waite VIDEOGAME DESIGNER-WRINGER AND SETTER Work Phone: [facility] 2023 11:48-0400 SaO2% (BldA) [Mass fraction] 99 % Yuko Waite VIDEOGAME DESIGNER-WRINGER AND SETTER Work Phone: [facility] 2023 11:48-0400 Systolic blood pressure 124 mm[Hg] Yuko Waite VIDEOGAME DESIGNER-WRINGER AND SETTER Work Phone: [facility] 01-06-2023 10:25-0400 Body height 177.8 cm Georgia Del Cid Other [employer] Other 01-06-2023 10:25-0400 Body mass index (BMI) [Ratio] 31.1 kg/m2 Georgia Del Cid Other [employer] [facility] Other 01-06-2023 10:25-0400 Body temperature 98.7 [degF] Georgia Del Cid Other [employer] [address] Other 01-06-2023 10:25-0400 Body weight 98.34 kg Georgia Del Cid Other [employer] Other 01-06-2023 10:25-0400 Diastolic blood pressure 88 mm[Hg] Georgia Del Cid Other [employer] [facility] Other 01-06-2023 10:25-0400 Respiratory rate 18 /min Georgia Del Cid Other [employer] [address] Other 01-06-2023 10:25-0400 SaO2% (BldA) [Mass fraction] 98 % Georgia Del Cid Other [employer] Other 01-06-2023 10:25-0400 Systolic blood pressure 136 mm[Hg] Georgia Del Cid Other [facility] [employer] Other 05-20-2022 16:12-0400 Blood Pressure Location Nicky NILL [facility] 05-20-2022 16:12-0400 Body temperature 98.06 [degF] Nicky NILL [facility] 05-20-2022 16:12-0400 Diastolic blood pressure 74 mm[Hg] Nicky NILL [facility] 05-20-2022 16:12-0400 Heart rate 79 /min Nicky NILL [facility] 05-20-2022 16:12-0400 Mean blood pressure 85 mm[Hg] Nicky NILL [facility] 05-20-2022 16:12-0400 Respiratory rate 16 /min Nicky NILL [facility] 05-20-2022 16:12-0400 SaO2% (BldA) [Mass fraction] 96 % Nicky NILL [facility] 05-20-2022 16:12-0400 Systolic blood pressure 106 mm[Hg] Nicky NILL [facility] 05-20-2022 14:41-0400 Blood Pressure Location Nicky NILL [facility] 05-20-2022 14:41-0400 Body temperature 98.06 [degF] Nicky NILL [facility] 05-20-2022 14:41-0400 Diastolic blood pressure 83 mm[Hg] Nicky NILL [facility] 05-20-2022 14:41-0400 Heart rate 70 /min Nicky NILL [facility] 05-20-2022 14:41-0400 Respiratory rate 16 /min Nicky NILL [facility] 05-20-2022 14:41-0400 SaO2% (BldA) [Mass fraction] 99 % Nicky NILL [facility] 05-20-2022 14:41-0400 Systolic blood pressure 135 mm[Hg] Nicky NILL [facility] 05-20-2022 14:38-0400 Body temperature 97.52 [degF] Nicky NILL [facility] 05-20-2022 14:38-0400 Diastolic blood pressure 85 mm[Hg] Nicky NILL [facility] 05-20-2022 14:38-0400 Heart rate 67 /min Nicky NILL [facility] 05-20-2022 14:38-0400 Respiratory rate 14 /min Nicky NILL [facility] 05-20-2022 14:38-0400 SaO2% (BldA) [Mass fraction] 100 % Nicky NILL [facility] 05-20-2022 14:38-0400 Systolic blood pressure 122 mm[Hg] Nicky NILL [facility] 05-20-2022 14:25-0400 Respiratory rate 11 /min Nicky NILL [facility] 05-20-2022 14:15-0400 Respiratory rate 15 /min Nicky NILL [facility] 05-20-2022 13:41-0400 Blood Pressure Location Nicky NILL [facility] 05-20-2022 13:41-0400 Body temperature 97.52 [degF] Nicky NILL [facility] 05-20-2022 13:35-0400 Respiratory rate 14 /min Nicky NILL [facility] 05-20-2022 10:00-0400 Body temperature 98.06 [degF] Nicky NILL [facility] 05-20-2022 10:00-0400 Mean blood pressure 103 mm[Hg] Nicky NILL [facility] 05-20-2022 10:00-0400 Heart rate 66 /min Nicky NILL [facility] 05-13-2022 12:32-0400 Blood Pressure Location Nicky NILL [facility] 05-13-2022 12:32-0400 BP/Pulse Patient Position Nicky NILL [facility] 05-13-2022 12:32-0400 Diastolic blood pressure 86 mm[Hg] Nicky NILL [facility] 05-13-2022 12:32-0400 Heart rate 67 /min Nicky NILL [facility] 05-13-2022 12:32-0400 Mean blood pressure 102 mm[Hg] Nicky NILL [facility] 05-13-2022 12:32-0400 Respiratory rate 18 /min Nicky NILL [facility] 05-13-2022 12:32-0400 Systolic blood pressure 134 mm[Hg] Nicky NILL [facility] 05-13-2022 12:30-0400 Blood Pressure Location Nicky NILL [facility] 05-13-2022 12:30-0400 BP/Pulse Patient Position Nicky NILL [facility] 05-13-2022 12:30-0400 Diastolic blood pressure 83 mm[Hg] Nicky NILL [facility] 05-13-2022 12:30-0400 Heart rate 69 /min Nicky NILL [facility] 05-13-2022 12:30-0400 Mean blood pressure 102 mm[Hg] Nicky NILL [facility] 05-13-2022 12:30-0400 SaO2% (BldA) [Mass fraction] 97 % Nicky NILL [facility] 05-13-2022 12:30-0400 Systolic blood pressure 140 mm[Hg] Nicky NILL [facility] 05-13-2022 12:30-0400 Body temperature 97.7 [degF] Nicky NILL [facility] 04-27-2022 09:05-0400 Blood Pressure Location Nicky NILL [facility] [place] 04-27-2022 09:05-0400 Diastolic blood pressure 95 mm[Hg] Nicky NILL [facility] [place] 04-27-2022 09:05-0400 Heart rate 58 /min Nicky NILL [facility] 04-27-2022 09:05-0400 Respiratory rate 16 /min Nicky NILL [facility] [place] 04-27-2022 09:05-0400 Systolic blood pressure 141 mm[Hg] Nicky PATELVianney [facility] 04-23-2022 11:11-0400 Blood Pressure Location BRAYDEN [facility] 04-23-2022 11:11-0400 Diastolic blood pressure 87 mm[Hg] Patrick OWEN [facility] 04-23-2022 11:11-0400 Heart rate 75 /min Patrick OWEN [facility] 04-23-2022 11:11-0400 Respiratory rate 16 /min Patrick OWEN [facility] 04-23-2022 11:11-0400 Systolic blood pressure 130 mm[Hg] Patrick OWEN [facility] Encounters Encounter Date Encounter Type Care Provider Facility Start: 02-14-2024 End: 02-14-2024 Emergency department patient visit Reddy Thao [facility] Start: 2023 End: 2023 Office outpatient visit 15 minutes Yuko MITCHELL Work Phone: [facility] Comment on above: Encounter for occupa tional physical examination (Primary Dx); Type 2 diabetes mellitus without complication, without long-term current use of insulin ([facility]); Anxiety; Sleep disturbance Start: 04-18-2023 End: 04-18-2023 ambulatory Patrick OWEN Facility:[facility] Start: 04-18-2023 End: 04-18-2023 Patient encounter procedure Patrick OWEN [facility] Start: 01-06-2023 End: 01-06-2023 ambulatory Georgia Del Cid Other [employer] Other Start: 01-06-2023 Office outpatient visit 15 minutes Georgia Maria Eugenia [facility] Start: 11-30-2022 End: 11-30-2022 ambulatory Imad Asaad Facility:[facility] Start: 11-04-2022 End: 11-04-2022 ambulatory Imad Asaad Other [facility] [employer] Other Start: 11-04-2022 Telephone encounter Imad Asaad [facility] Start: 10-28-2022 End: 10-28-[address] PATRICK OWEN . Facility:[facility] Start: 10-26-[address] PATRICK OWEN . Fac ility:[facility] Start: 10-22-2022 End: 10-23-[address] PATRICK OWEN . Facility:[facility] Start: 10-21-2022 End: 10-21-2022 ambulatory Domonique Myers Facility:[facility] Start: 10-21-2022 End: 10-21-2022 ambulatory DO Jude R Ruvalcaba III Work Phone: [facility] Work Phone: Start: 10-21-2022 End: 10-21-2022 Patient encounter procedure DO Jude Ruvalcaba III Work Phone: [facility] Work Phone: Start: 06-25-2022 End: 06-25-2022 Patient encounter procedure Nicky R NILL [facility] [place] Start: 06-02-2022 End: 06-02-2022 Patient encounter procedure Nicky R NILL [facility] [place] Start: 05-20-2022 End: 05-20-2022 Admission to same day surgery center Nicky CHRISTINA [facility] Start: 05-13-2022 End: 05-13-2022 Patient encounter procedure Nicky CHRISTINA [facility] Start: 04-27-2022 End: 04-27-2022 Patient encounter procedure Nicky CHRISTINA [facility] [place] Start: 04-23-2022 End: 04-23-[address] PATRICK OWEN . Facility:[facility] Start: 04-23-2022 End: 04-23-2022 Patient encounter procedure Patrick OWEN [facility] Start: 04-04-2022 End: 04-04-2022 ambulatory SALBADOR BOOKER Facility:[facility] Start: 02-17-2022 End: 02-17-2022 ambulatory UMM SILVERMAN . Facility:[facility] Start: 10-14-2017 End: 10-17-2017 Ambulatory NAHOMY ORNELAS) [facility] Jose Manuel [facility] Procedures Date Procedure Procedure Detail Performing Clinician Start: 07-04-2023 Adult depression scr eening assessment Yuko Waite VIDEOGAME DESIGNERDinnerTime Work Phone: Start: 10-21-2022 Plain chest X-ray DO denisse Clementsers III Work Phone: Start: 09-27-2022 Microalbumin [Mass/v olume] in Urine by Test strip Yuko Waite VIDEOGAME DESIGNER-WRINGER AND SETTER Work Phone: Start: 05-20-2022 Laparoscopy surg rpr [...] 10-26-2024 Adult BMI Screening Adult BMI Screening [facility] Start: 10-26-2024 Tobacco Screening Tobacco Screening [facility] Start: 07-04-2024 Depression Screening Depression Screening [facility] Start: 03-25-2024 Influenza vaccination Influenza Vaccine [facility] Start: 01-30-2024 End: 01-30-2024 Patient encounter procedure 01/30/2024 4:15 PM EDT [facility] [address] [place] [id number] Yuko Waite APRN-GENEVA [address] [place] [phone] [facility] Start: 12-17-2023 Adult BMI Follow Up Plan Adult BMI Follow Up Plan [facility] Start: 10-31-2023 End: 10-31-2023 Patient encounter procedure 10/31/2023 4:00 PM EDT Office Visit [facility] [address] [place] [phone] Yuko Waite APRN-WRINGER AND SETTER [address] [place] [phone] [facility] Start: 09-28-2023 Urine screening for protein Urine Microalbumin [facility] Start: 09-09-2022 Diabetic foot examination Diabetic Foot Exam [facility] Start: 2000 DTaP,Tdap and Td Vaccines (1 - Tdap) DTaP,Tdap and Td Vaccines (1 - Tdap) [facility] Start: 1981 Glaucoma screening Diabetic Ophthalmology Exam [facility] Start: 1981 Tobacco Counseling Tobacco Counseling [facility] Immunizations Immunization Date Immunization Notes Care Provider Fa janethty NEGATED: Highlighted row has not occurred!09-09-2021 influenza, injectable, quadrivalent, preservative free Yuko Waite VIDEOGAME DESIGNER-WRINGER AND SETTER Work Phone: [facility] Comment on above: Deferred: Patient de cision Payers Date Payer Category Payer Self-pay [id number] 2022 Medicaid [facility] MEDICA[facility] [id number] 2022-Present [phone] [address] [place] [address] [id number] 1981 Unknown [id number] 1981 Unknown [id number] 1981 Unknown [id number] [id number] 1981 Unknown [id number] [id number] 1981 Unknown [id number] [id number] 1981 Unknown [id number] [id number] 1981 Unknown [id number] [id number] 1981 Unknown [id number] [id number] 1981 Unknown [id number] [id number] 1958 Medicaid [id number] 1958 Medicaid [id number] Unknown [id number] Unknown [id number] Social History Date Type Detail Facility Start: 01-31-2020 End: 04-23-2022 Tobacco smoking status Smoker (finding) [facility] Start: 07-04-2023 End: 2023 Sex Assigned At Male [facility] Start: 04-27-2022 Tobacco smoking status Heavy t obacco smoker (finding) [facility] [place] Comment on above: Smoker Tobacco smoking status Never [facility] [place] Comment on above: Smoker Start: 1980 Sex Assigned At Male [facility] Start: 09-27-2022 [facility] History of tobacco use Cigarette Smoker P [facility] Start: 09-27-2022 End: 07-04-2023 Cigarettes smoked current (pack per day) - Reported 1 [facility] Start: 09-27-2022 Tobacco use and exposure Smokeless tobacco [facility] Start: 2023 Alcohol intake Ex-drinker (finding) [facility] [facility] Start: 1980 Sex Assigned At Not on file P [facility] Start: 02-14-2024 Tobacco smoking status Light t obacco smoker (finding) [facility] Medical Equipment Procedure Code Equipment Code Equipment Origin al Text Equipment Identifier Dates INGUINAL HERNIA REPAIR ADULT Nicky CHRISTINA MD 05/20/22 Non Biological Abdomen {[id number]{ [id number] FDA Start: 05-20-2022 Monitor blood padilla gar daily [id number] Start: 2023 1 Unit by miscellaneous route in the morning. [id number] Start: 07-05-2023 Monitor blood padilla gar daily [id number] Start: 07-05-2023 End: 2023 Functional Status Date Assessment Result Facility 02-14-2024 Functional Status N/A [facility] 05-13-2022 Functional Status No [facility] 04-27-2022 Functional Status N/A [facility] General Surgery [place] 04-23-2022 Functional Status N/A [facility] Clinical Notes 04-23-2022 to 02-14-2024 Note [...] by your health care provider. Follow the gas appliance servicer helper's instructions for use. Tighten and properly adjust [...] provider. Document Revised: 05/04/2021 Document Reviewed: 05/04/2021 [employer] Patient Education 2022 [employer]. 02/14/2024 17:04:58 Foot Sprain Foot Sprain A [...] cast on your foot. General instructions Take sqlb-fxl-rweilhe and prescription medicines only as told by [...] provider. Document Revised: 10/31/2020 Document Reviewed: 10/31/2020 [employer] Patient Education 2022 [employer]. Follow Up Care 02/14/2024 15:59:39 With:SALBADOR BOOKER Address: [address] [place] [phone] Business (1) When:02/17/2024 16:55:32 Comments:Return to the emergency room if your pain gets worse or any new symptoms. [facility] 02-14-2024 Note ED Patient Education Note [...] your health care provider. ? Follow the gas appliance servicer helper's instructions for use. ? Tighten and properly [...] provider. Document Revised: 05/04/2021 Document Reviewed: 05/04/2021 [employer] Patient Education ? 2022 [employer]. Foot Sprain A foot sprain is an [...] You may put (more content not included)... [facility] 02-14-2024 Evaluation + Plan note Extrac ekaterina from: Title:ED Note Author:Master Olivo, Reddy Rose te:02/14/24 1. Sprain of left foot (S93. 602A: Unspecified sprain of left foot, initial encounter) Orders: ibuprofen, 600 mg = 1 tab(s), Tab, Oral, Once, Stop date 02/14/24 16:22:00 EDT, STAT, Start date 02/14/24 16:22:00 EDT, 02/14/24 16:22:00 EDT Post-op Shoe XR Foot 3+ Views Left [facility]04-04-2024 History of Present illness Narrative* Yuko Waite, VIDEOGAME DESIGNER-WRINGER AND SETTER - 2023 11:45 AM EDT Subjective Patient ID: Brian Tse is a 42 y.o. male. GEGE Torres presents to the office for physical exam as he is in the [employer] at [employer]. He will finish at the end of [...] complication, without long-term current use of insulin ([facility]) - blood sugar diagnostic (glucose blood) strip; [...] STEPHEN Ochoa 10/27/23 1548 [facility]* Encounter Date Diagnosis [...] worsening. Patient verbalized understanding of treatment plan. [facility] Other 04-13-2023 Hospital Discharge instructions Follow Up Care 11/04/2022 10:27:15 With:BRAYDEN CORONEL, Patrick Guidry, URL Address: [facility] [address] , [place] [phone] When: Unknown [facility] 2022 Hospital Discharge instructions Patient Education 05/20/2022 14:32:40 Post Op Patient Instructions - FT (CUSTOM) Follow Up Care 04/27/2022 09:44:58 With:Nicky CHRISTINA Address: [address], [address] [place] [phone] Business (1) When:7 to 10 days [facility]09-30-2022 Hospital Discharge instructions Patient Education 04/23/2022 12:05:06 Kidney Stones, Eidx-rl-Ivwq Kidney Stones Kidney stones are rock-like masses [...] Follow these instructions at home: Medicines Take crhh-ore-ibmnzpq and prescription medicines only as told by [...] 12/27/2008 Document Revised: 11/27/2019 Document Reviewed: 11/27/2019 [employer] Patient Education 2020 [employer]. Follow Up Care 04/22/2022 09:22:48 With:Patrick OWEN MD, URL Address: [address] [place], [place] [id number]- When: Unknown [facility] evaluation + Plan note Future Appointments Appointment Date:04/27/2022 09:00:00 AM Scheduled Provider:Nicky CHRISTINA MD Location:[facility] Appointment Type:[facility] Appointment Date:10/22/2022 08:45:00 AM Scheduled Provider:Patrick OWEN MD [facility] Appointment Type:URO Office Visit Diagnostic Tests Pending * Calculi Analysis Urinary 04/23/22 [facility] evaluation + Plan note Future Appointments Appointment Date:05/13/2022 12:30:00 PM Scheduled Provider: Location:[facility] Appointment Type:Surgical PAT FT Appointment Date:05/13/2022 01:30:00 PM Scheduled Provider: Location:[facility] Appointment Type:Surgery PAT COVID Testing Appointment Date:05/20/2022 11:30:00 AM Scheduled Provider: Location:[facility] Appointment Type:Surgery FT Appointment Date:10/22/2022 08:45:00 AM Scheduled Provider:Patrick OWEN MD [facility] Appointment Type:URO Office Visit [facility] General Surgery [place] Evaluation + Plan note Future Appointments Appointment Date:05/20/2022 11:30:00 AM Scheduled Provider: Location:[facility] Appointment Type:Surgery FT Appointment Date:10/22/2022 08:45:00 AM Scheduled Provider:Patrick OWEN MD [facility] App[facility]ments Appointment Date:10/22/2022 08:45:00 AM Scheduled Provider:Patrick OWEN MD [facility] Future Appointments Appointment Date:06/22/2022 02:40:00 PM Scheduled Provider:Nicky CHRISTINA MD Location:[facility] Appointment Type:GS Post Op 15 Appointment Date:10/22/2022 08:45:00 AM Scheduled Provider:Patrick OWEN MD Location[facility] Appointment Type:URO Office Visit General Surgery [place] Evaluation noteNo assessment information available [facility] Work Phone: Evaluation noteNo InformationNortUniversity of Pennsylvania Health System [employer] Other Evaluation note* Diagnosis Encounter for occupational physical examination- Primary Type 2 diabetes mellitus without complication, without long-term current use of insulin ([facility]) Anxiety Anxiety state, unspecified Sleep disturbance Unspecified sleep disturbance [facility] - Reported* Type Description Date Medical History Diabetes Medical History Renal calculi Medical History Hematochezia Surgical History CHOLECYSTECTOMY Surgical History HEMORRHOIDECTOMY Surgical History Foot Surgery Surgical History bunionectomy [facility] [employer] Other Hospital course Narrative No data available for this section [facility] Hospital Discharge instructions No data available for this section [facility] General Surgery [place] InstructionsNot on filedocumented in this encounter [facility] SystemProgress note No data available for this section [facility] Summary Purpose Family History No Family [...] Diagnosis: Phimosis, N47.1 Surgeon: Nicky Swartz Resident/Fellow/Other Bodily Injury Adjuster: Radha Madrigal Procedure: 1. CIRCUMCISION Anesthesia: [...] section and content) DATE CREATED AUTHOR 01/12/2018 [facility] DATE CREATED AUTHOR AUTHOR'S ORGANIZ ATION 09/16/2020 [facility] DATE CREATED AUTHOR AUTHOR'S ORGANIZ ATION 11/04/2020 [facility] DATE CREATED AUTHOR AUTHOR'S ORGANIZ ATION 11/04/2020 [employer] DATE CREATED AUTHOR AUTHOR'S ORGANIZ ATION 12/04/2022 [facility] DATE CREATED AUTHOR AUTHOR'S ORGANIZ ATION 12/06/2022 [facility] DATE CREATED AUTHOR AUTHOR'S ORGANIZ ATION 02/17/2024 [facility] Care Team (unrecognized sect ion and content) Team Status: Active Member Role Status Dates Jude Ruvalcaba III , DO Primary Care Provider Active Team Status: Inactive Member Role Status Dates Jude Ruvalcaba III , DO Primary Care Provider Active Domonique Myers APRN Attending Provider Active Soil Fertility Extension Specialist Relationship Specialty Start Date End Date Yuko Waite APRN-WRINGER AND SETTER PCP - General Nurse Practitioner 07/04/23 Goals [...] BE BASED ON THE PRIMARY CLINICAL RECORDS. [employer] provides no warranty or guarantee of the accuracy or completeness of information in this document.
== END 2024-04-09 08:33 | disposition home or self-care (01) ==
PROVIDERS: Visit Provider Orthopaedic Surgery
DX: S92.515D Nondisplaced fracture of proximal phalanx of left lesser toe(s), subsequent encounter for fracture with routine healing (principal)
CPT/HCPCS: 73630

== ENCOUNTER 2024-06-11 15:09 | Outpatient (OUT) | payer OTHER, SELFPAY ==
--- NOTE | 2024-06-11 15:20 | MR_ITS ---
The [address] [address] Patient Name: YESENIA TSE MRN: [facility]:[id number] date: 1980 Sex: M Assigned Patient Location: MRI Current Patient Location: MRI Accession/Order Number: [id number] Exam Date: 06/11/2024 15:42 Report Date: 06/14/2024 10:51 At the request of: JUANITA VILLAR Procedure: MR foot LT wo con EXAM: MR foot LT wo con HISTORY: Left foot pain with pain in the toes after stepping on a rock. COMPARISON: Left foot x-rays from 04/09/2024 and 03/05/2024. TECHNIQUE: Multiplanar and multisequence imaging of the left foot was performed without contrast. FINDINGS: Motion artifact degrades evaluation on this study particularly on the long axis STIR images. No acute fracture is identified involving the metatarsal bones or phalanges. There is osseous fusion of the middle and distal phalanges of the fourth and fifth digits also seen on the comparison x-rays which is consistent with anatomic variation. There is post surgical change involving the first metatarsal distally with flattening of the medial aspect of the first metatarsal head and artifact related to hardware in the distal aspect of the first metatarsal status post bunionectomy. Large xtiis-ns-zcch axial T2 and sagittal fat-saturated proton density images extending to the hindfoot. No calcaneus or talus fracture is evident. There is relative preservation of the joint spaces. The tarsometatarsal alignment appears anatomic. The Lisfranc ligament is intact. No gross Achilles tendon tear is evident on the axial T2 images. No peroneal tendon tear is evident. Small amount of fluid tracks along the peroneal tendons consistent with mild tenosynovitis. No flexor or extensor tendon tear is evident. There is no cystic or solid mass in the region of the tarsal tunnel. There is no acute abnormality involving the plantar fascia. MR/MR foot LT wo con IMPRESSION: 1. No acute or healing fracture with attention to the toes. No metatarsal fracture is evident. 2. A small amount of fluid tracks along the peroneal tendons and the inframalleolar portion consistent with mild tenosynovitis. No focal tendon tear is evident. 3. Post surgical change involving the first metatarsal distally status post bunionectomy with artifact related to the hardware. Electronically authenticated by: LATASHA FINN Date: 06/14/2024 10:51
--- OUTSIDE RECORDS SUMMARY | 2024-06-11 15:31 | XMS_ITS | CCD ---
Author Organization [facility] Care Team Providers Care City Editor Name Role Phone NAHOMY SHARP (MAZIN) Unavailable Unavailable Jude Ruvalcaba III Primary Care Physician SALBADOR BOOKER Primary Care Physician DO Jude Ruvalcaba III Primary Care Provider ALMA DELIA Myers Attending Provider [phone] Asaad, Imad Unavailable HERRERA ., UMM Admitting Unavailable HERRERA ., UMM Attending Unavailable DAVID, SALBADOR Primary Care Unavailable JANIA, DR JUANITA [employer] Unavailable EL ., DONAVAN Consulting Unavailable DAVID, SALBADOR Primary Care Unavailable [...] Unavailable OWEN ., DR NGUYEN Consulting Unavailable RANOMIZ [employer] Unavailable SANDRA II, AMIRA Consulting [...] Avila Unavailable SALBADOR BOOKER Primary Care Physician [phone] Yuko Concepcion Primary Care Provider SALBADOR BOOKER Primary Care Physician DON SANTSO Attending Unavailable Unallocated , [facility] Provider Primary Care Provi devora Reddy Thao Attending Unavailable Allergies Allergy Classification Reported Allergen(s) Allergy Type Date of Onset Reaction(s) Facility [facility] (1 source) metFORMIN; Translations: [metformin] Drug Allergy Diarrhea (finding) [facility] (11 sources) metFORMIN; Translations: [metformin] Drug Allergy 3 Diarrhea (finding), Diarrhea [facility] (1 source) metFORMIN Drug Allergy [facility]ository (2 sources) varenicline Drug Allergy 8 [facility] (1 source) Acetaminophen / oxyCODONE; Translations: [Percocet 5/325] Drug Allergy [facility] Repository (1 source) No Known Medication Allergies; Translations: [No Known Medication Allergies] Propensity to adverse reactions (disorder) [facility] Repository Medications Current Medications Medication Drug Class(es) Dates Sig (Normalized) Sig (Original) acetaminophen 325 mg / oxyCODONE hydrochloride 5 mg oral tablet (1 source) Opioid Agonist Start: 05-20-2022 End: 05-25-2022 Percocet 325 mg-5 mg Tab 1 tab(s), Oral, q3hr Pain, 20 tab(s), Refill(s) 0, take with food or milk, [facility]/pharmacy #[id number], 180, cm, 05/13/22 12:43:00 EDT, Height/Length Dosing, [...] every morning. 30 tablet 2 2023 Active cephalexin 500 mg oral capsule (2 sources) Cephalosporin Antibacterial Start: 05-07-2024 End: 05-17-2024 take 1 capsule by mouth in the morning, then take 1 capsule by mouth in the evening, then take 1 capsule by mouth at bedtime, then take 1 capsule by mouth three times daily cephalexin (Keflex) 500 MG capsule Indications: Skin and Skin Structure Infection Take 1 capsule (500 mg) by mouth in the morning and 1 capsule (500 mg) in the evening and 1 capsule (500 mg) before bedtime. Do all this for 10 days. TAKE 1 PILL P.O. T.I.D. FOR 10 DAYS. 30 capsule 05/07/2024 05/17/2024 Active chlorhexidine gluconate 1.2 mg/ml mouthwash (1 [...] 0 Start Date: 07/26/18 Status: Ordered Trulicity Not-Ta nikia Trulicity Active fluconazole 150 mg oral tablet (2 sources) Azole Antifungal Start: 01-06-2023 take 1 tablet by mouth once Diflucan 150 MG 1 tablet Orally once for 1 days Dec, Active Start: 07-30-2020 fluconazole 15 0 mg Tab 150 mg = 1 tab(s), Oral, Once, repeat in 3 days, # 2 tab(s), Refills(s) 0, Pharmacy: [facility] [id number], 173, cm, 07/30/20 10:33:00 EST, Height/Length Dosing, 109.1, kg, 07/30/20 10:33:00 EST, Weight Dosing Start Date: 07/30/20 Status: Ordered glyBURIDE 5 mg oral tablet (12 sources) Sulfonylurea Start: 01-23-2024 take 1 tablet by mouth once daily at mealtime glyBURIDE (Diabeta) 5 MG tablet TAKE 1 TABLET BY MOUTH EVERY MORNING AND AT NIGHT WITH MEALS 01/23/2024 Active Start: 04-23-2022 End: 2023 take 1 tablet by mouth at mealtime glyBURIDE (DIABETA) 5 mg tablet Indications: Type 2 diabetes mellitus without complication, without long-term current use of insulin ([facility]) TAKE 1 TABLET BY MOUTH IN [...] Weight Dosing Start Date: 07/30/20 Status: Ordered mupirocin 0.02 mg/mg topical ointment (2 sources) RNA Synthetase Inhibitor Antibacterial Start: 05-07-2024 End: 05-21-2024 mupirocin (Bactroban) 2 % ointment Indications: Wound Infection Apply 1 application topically in the morning and 1 application before bedtime. Do all this for 14 days. 30 g 1 05/07/2024 05/21/2024 Active omeprazole 20 mg delayed release oral capsule (3 sources) Proton Pump Inhibitor Start: 09-11-2020 take 1 capsule by mouth once daily omeprazole 20 mg Cap-DR 20 mg = 1 cap(s), Oral, Daily, # 30 cap(s), Refills(s) 0 Start Date: 09/11/20 Status: Ordered Start: 02-04-2020 take 1 capsule by [facility] every twelve hours Omeprazole 40 [...] Daily, # 30 cap(s), Refills(s) 0, Pharmacy: [facility]/pharmacy #[id number], 180, cm, 10/22/22 9:12:00 EDT, Height/Length [...] 10 day(s) Jan, Not-Taking polyethylene glycol 3350 622703 mg / potassium chloride 2970 mg / sodium bicarbonate 6740 mg / sodium chloride 5860 mg / sodium sulfate 71263 mg powder for oral solution (3 sources) [...] Onset: 2 Episodic Diabetes mellitus with complications (3 sources) 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 [...] 8 09-09-2021 Chronic Other 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; Translations: [RETIREMENT USE ORAL 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 DX] Onset: Episodic Other connective tissue disease (2 sources) Pain in right foot; Translations: [Pain in right foot] 05-07-2024 Episodic Other gastrointestinal disorders (2 sources) Diarrhea; [...] use and exposure - finding 04-28-2022 Chronic Skin and subcutaneous tissue infections (2 sources) Abscess of toe of right foot; Translations: [Cutaneous abscess of right foot] 05-07-2024 Episodic Sprains and strains (2 sources) Strain of muscle(s) and tendon(s) of the rotator cuff of right shoulder, initial encounter; Translations: [Rotator cuff (capsule) sprain] Onset: 8 09-09-2021 Episodic Substance-related disorders (18 sources) Smoker; Translations: [Nicotine dependence, cigarettes, uncomplicated] Onset: 2 04-23-2022 Chronic Comment on above: Added secondary to d ocumentation in Social History. Superficial injury; contusion (2 sources) Contusion of right foot; Translations: [Contusion of right foot, initial encounter] 05-07-2024 Episodic Unclassified (1 source) CONTACT W/AND (SUSP) EXPOS [...] 2023 ED Clinical Summary ED Clinical Summary [place] [address] ED Clinical Summary Person Information Name: BRIAN TSE Maria D/[facility] Age: 43 Years : 1980 Sex: Male Language: Cymraes PCP: SALBADOR BOOKER CNP Marital Status: Single Phone: [phone] Visit Id: Visit Reason: Foot pain-swelling; LT [...] 02/14/2024 17:04:58 02/14/2024 17:04:58 02/14/2024 17:04:58 ADDRESS: [facility] [address] [facility] [id number] PHYS DOC NOTES: MEDICAL INFORMATION: Prescriptions Given: Medications to Continue with No Changes Other Medications glyBURIDE (GlyBURIDE (Eqv-Micronase) 5 mg oral tablet) 1 Tablets By Mouth 2 times a day. tamsulosin (tamsulosin 0.4 mg Cap) 1 Capsules By Mouth every day. Refills: 0. PATIENT EDUCATION INFORMATION: Instructions: How to Use a Cast Shoe; Foot Sprain Follow up: With: Address: When: SALBADOR BOOKER [address] [place] [address] [phone] [email or web address] (1) In 3 days 02/17/2024 Comments: Return to the emergency room if your pain gets worse or any new symptoms. DIAGNOSIS: 1:Sprain of left foot Normal [facility] ED Note-Physicianon 02-14-20 24 ED Note-Physician ED Note-Physician Basic Information Time [...] and Complexity of Problems Differential Diagnosis: [] [facility] Data External documents reviewed: [] My EKG [...] BOOKER In 3 days 02/17/2024 EDT [address] [place] [address] Business (1) Additional Instructions: Return [...] Views Left (more content not included)... Normal [facility] Comment on above: Result Comment: Elec tronically Signed By: Master Olivo, Reddy Amin\.br\Date and Time Signed: 02/14/24 16:56 EDT ED Patient Summaryon 024 ED Patient Summary ED Patient Summary [address] [address] Patient Discharge Instructions Person Information Name: BRIAN TSE Age: 43 Years Arrival Date: 02/14/2024 15:56:45 Discharge Diagnosis: 1:Sprain of left foot Primary Care Physician: SALBADOR BOOKER CNP Provider Information Primary Provider: Reddy Thao M.D. Advanced [employer] Heater Installer:None The exam and treatment you received in the Emergency Department were for an urgent problem and are not intended as complete care. It is important that you follow up with a doctor, nurse practitioner, or physician?s pharmacy technician assistant for ongoing care. If your symptoms [...] Follow-up Instructions: With: Address: When: SALBADOR BOOKER [address] [place] [address] [phone] [email or web address] (1) In 3 days 02/17/2024 Comments: Return [...] opioids can be used to help relieve [id number]-[id number] pain and are often prescribed following a [...] tell you (more content not included)... Normal [facility] XR Foot 3+ Views Lefton 01-23 XR [...] mGy = . DAP = . Normal [facility] Glucose Poct Glucometerson 0 11-30-2022 Glucose [Mass/Vol] 155 mg/dL Normal [facility] Comment on above: Result Comment: [facility] Glucose Reference Range is dependent on time and content of last meal. Glucose of more than 200 mg/dL in a nonstressed, ambulatory subject supports the diagnosis of Diabetes Mellitus. PERFORMED BY: [facility] [address] [place] [address] PATHOLOGIST GEOLOGY PROFESSOR IGLESIA SANCHEZ M.D. Performed By: #### G STIVEN #### Point of Care testing , Roland 11-30-2022 L --- Specimen: [id number] Received: 11/30/22 Status: JAGDISH Ye Num: [id number] Spec Type: Surgical Subm Dr: Edvin Colunga MD Tissues: A Colon Biopsy (ASCENDING POLYP) Procedures: HE/2, Gross/Micro L4 Age/ Patient Sex Location Account Attending Physician Brian Tse /[facility] [id number] Edvin Colunga MD SPEC NUM: [id number] RECD: 11/30/22 STATUS: JAGDISH BELCHER NUM: [id number] REINA: 11/30/22 DR: Edvin Colunga MD ENTERED: 11/30/22 [facility] DR: REBECA TYPE: Surgical DEPT: S [...] support the above pathologic diagnosis. CPT Codes 68928 Specimen: [id number] Received: 11/30/22 Status: JAGDISH Belcher Num: [id number] Spec Type: Surgical Subm Dr: Edvin Colunga MD Tissues: A Colon Biopsy (ASCENDING POLYP) Procedures: HE/2, Gross/Micro L4 Patient: Brian Tse [id number] (Continued) Signed (signature on file) Daily Quarles MD 12/01/22 1158 Normal [facility] CBC AUTO DIFFon 10-28-2022 BASO # 0.1 103/ul Normal 0.0-0.1 [facility] Comment on above: Performed By: #### C BC #### [facility] [address] [place] [address] Dr. Yash Mckeon Basophils/100 WBC (Bld) 0.8 % Normal 0.2-2.0 [facility] Comment on above: Performed By: #### C BC #### [facility] [address] [place] [address] Dr. Yash Mckeon EO # 0.4 103/ul Normal 0.0-0.7 [facility] Comment on above: Performed By: #### C BC #### [facility] [address] [place] [address] Dr. Yash Mckeon Eosinophils/100 WBC (Bld) 3.3 % Normal 0.9-7.0 [facility] Comment on above: Performed By: #### C BC #### [facility] [address] [place] [address] Dr. Yash Mckeon Erythrocyte distribution width (RBC) [Ratio] 14.0 % Normal 11.0-15.0 [facility] Comment on above: Performed By: #### C BC #### [facility] [address] [place] [address] Dr. Yash Mckeon Hematocrit (Bld) [Volume fraction] 45.4 % Normal 42.0-54.0 [facility] Comment on above: Performed By: #### C BC #### [facility] [address] [place] [address] Dr. Yash Mckeon Hemoglobin (Bld) [Mass/Vol] 14.8 g/dL Normal 14.0-18.0 [facility] Comment on above: Performed By: #### C BC #### [facility] [address] [place] [address] Dr. Yash Mckeon IG # 0.04 10e3/ul Critically high 0.00-0.03 [facility] Comment on above: Performed By: #### C BC #### [facility] [address] [place] [address] Dr. Yash Mckeon IG % 0.4 % Normal 0.0-0.5 [facility] Comment on above: Performed By: #### C BC #### [facility] [address] [place] [address] Dr. Yash Mckeon LYMPH # 2.8 103/ul Normal 1.2-3.8 [facility] Comment on above: Performed By: #### C BC #### [facility] [address] [place] [address] Dr. Yash Mckeon Lymphocytes/100 WBC (Bld) 25.3 % Normal 20.5-60.0 [facility] Comment on above: Performed By: #### C BC #### [facility] [address] [place] [address] Dr. Yash Mckeon MANUAL DIFF REQ NO Normal [facility] Comment on above: Performed By: #### C BC #### [facility] [address] [place] [address] Dr. Yash Mckeon MCH (RBC) [Entitic mass] 28.6 pg Normal 25.9-34.0 [facility] Comment on above: Performed By: #### C BC #### [facility] [address] [place] [address] Dr. Yash Mckeon MCHC (RBC) [Mass/Vol] 32.6 g/dL Normal 29.9-35.2 [facility] Comment on above: Performed By: #### C BC #### [facility] [address] [place] [address] Dr. Yash Mckeon MCV (RBC) [Entitic vol] 87.8 fL Normal 80.0-94.0 [facility] Comment on above: Performed By: #### C BC #### [facility] [address] [place] [address] Dr. Yahs Mckeon MONO # 1.0 103/ul Critically high 0.3-0.8 [facility] Comment on above: Performed By: #### C BC #### [facility] [address] [place] [address] Dr. Yash Mckeon Monocytes/100 WBC (Bld) 8.6 % Normal 1.7-12.0 [facility] Comment on above: Performed By: #### C BC #### [facility] [address] [place] [address] Dr. Yash Mckeon NEUT # 6.9 103/ul Critically high 1.4-6.5 [facility] Comment on above: Performed By: #### C BC #### [facility] [address] [place] [address] [address] Yash Mckeon Neutrophils/100 WBC (Bld) 61.6 % Normal 43.0-75.0 [facility] Comment on above: Performed By: #### C BC #### [facility] [address] [place] [address] [address] Yash Mckeon Platelet mean volume (Bld) [Entitic vol] 10.0 fL Normal 9.5-13.5 [facility] Comment on above: Performed By: #### C BC #### [facility] [address] [place] [address] Dr. Yash Mckeon PLT 250 103/ul Normal 150-450 [facility] Comment on above: Performed By: #### C BC #### [facility] [address] [place] [address] Dr. Yash Mckeon RBC 5.17 106/ul Normal 4.70-6.10 [facility] Comment on above: Performed By: #### C BC #### [facility] [address] [place] [address] Dr. Yash Mckeon WBC 11.2 103/ul Critically high 4.0-11.0 [facility] Comment on above: Performed By: #### C BC #### [facility] [address] [place] [address] Dr. Yash Mckeon POINT OF CARE GLUCOSEon Glucose [Mass/Vol] 219 mg/dL Critically high 74-106 T [facility] Comment on above: Performed By: #### P OCGLUC #### [facility] [address] [place] [address] Dr. Yash Mckeon PROF CHEM 8 (BAS METB)on Anion gap [Moles/Vol] 11.8 mmol/L Normal [facility] Comment on above: Performed By: #### B MP #### [facility] [address] [place] [address] Dr. Yash Mckeon Calcium [Mass/Vol] 8.6 mg/dL Normal 8.5-10.1 [facility] Comment on above: Performed By: #### B MP #### [facility] [address] [place] [address] [address] Yash Mckeon Chloride [Moles/Vol] 101 mmol/L Normal 98-107 [facility] Comment on above: Performed By: #### B MP #### [facility] [address] [place] [address] Dr. Yash Mckeon CO2 [Moles/Vol] 28.0 mmol/L Normal 21.0-32.0 [facility] Comment on above: Performed By: #### B MP #### [facility] [address] [place] [address] Dr. Yash Mckeon Creatinine [Mass/Vol] 1.13 mg/dL Normal 0.70-1.30 [facility] Comment on above: Performed By: #### B MP #### [facility] [address] [place] [address] Dr. Yash Mckeon EGFR-AF NIGERIAN >60 Normal >=60 [facility] Comment on above: Performed By: #### B MP #### [facility] [address] [place] [address] Dr. Yash Mckeon EGFR-NON AF NIGERIAN >60 Normal >=60 [facility] Comment on above: Performed By: #### B MP #### [facility] [address] [place] [address] Dr. Yash Mckeon Glucose [Mass/Vol] 196 mg/dL Critically high 74-106 [facility] Comment on above: Performed By: #### B MP #### [facility] [address] [place] [address] Dr. Yash Mckeon Potassium [Moles/Vol] 3.8 mmol/L Normal 3.5-5.1 [facility] Comment on above: Performed By: #### B MP #### [facility] [address] [place] [address] Dr. Yash Mckeon Sodium [Moles/Vol] 137 mmol/L Normal 136-145 [facility] Comment on above: Performed By: #### B MP #### [facility] [address] [place] [address] Dr. Yash Mckeon Urea nitrogen [Mass/Vol] 14.0 mg/dL Normal 7.0-18.0 [facility] Comment on above: Performed By: #### B MP #### [facility] [address] [place] [address] Dr. Yash Mckeon Urea nitrogen/Creatinine [Mass ratio] 12.4 mg/mg Normal [facility] Comment on above: Performed By: #### B MP #### [facility] [address] [place] [address] Dr. Yash Mckeon PROTIMEon 10-28-2022 INR Coag (PPP) [Relative time] {INR} Normal [facility] Comment on above: Performed By: #### P OCGLUC #### [facility] [address] [place] [address] Dr. Yash Mckeon INR GUIDELINES SEE BELOW Normal [facility] Comment on above: Result Comment: ZAN RED INR: 2.0 - 3.0 CONDITIONS NOT LISTED BELOW 2.5 - 3.5 FOR PROSTHETIC HEART VALVE REPLACEMENT 2.5 - 3.5 RECURRENT THROMBOSIS Performed By: #### P OCGLUC #### [facility] [address] [place] [address] Dr. Yash Mckeon PT Coag (PPP) [Time] 9.8 s Normal 9.0-11.6 [facility] Comment on above: Performed By: #### P OCGLUC #### [facility] [address] [place] [address] Dr. Yash Mckeon PTTon 10-28-2022 aPTT Coag (Bld) [Time] 30.5 s Normal 22.3-36.2 [facility] Comment on above: Performed By: #### P OCGLUC #### [facility] [address] [place] [address] Dr. Yash Mckeon XR KUB 1 VIEWon [...] by: SABI FREEMAN Date: 2022-10-28 08:00 Normal [facility] XR KUB 1 VIEWon 10-25-2022 XR [...] by: JUANITA DYKES Date: 2022-10-25 06:41 Normal [facility] XR ribs RT min 3V w CXR1V*on 10-21-2022 XR ribs RT min 3V w CXR1V* [facility] [place] [address] [place] [address] XRay Report Signed Patient: Brian Tse MR#: [id number] : 1980 Acct:[id number] Age/Sex: 41 / M ADM Date: 10/21/22 [facility]: [facility] Room: Type: [facility] Attending Dr: Domonique Myers APRN [...] Linda Sierra M.D.10/21/2022 2:10 PM Dictation Location: [place] [address] Transcribed By: [facility] 10/21/22 1410 Dictated By: Linda Sierra MD 10/21/22 1406 Signed By: 10/21/22 1410 [facility] CHEMISTRYOrdered By: Lab ROP User on 05-20-2022 Glucose [Mass/Vol] 173 mg/dL High 55 - 99 mg/dL [facility] POC Subsection Comment on above: Result Comment: Dayanara alcantar RN/ POC Device SN [id number] Invalid Interpretation Code [facility] POC Subsection POC User ID [id number] Invalid Interpretation Code [facility] POC Subsection POC Username CHINEDU POSADAS Invalid Interpretation Code [facility] POC Subsection CHEMISTRYOrdered By: SYSTEM SYSTEM on 05-13-2022 Anion gap [Moles/Vol] 15 mmol/L Normal 6 - 16 mEq/L [facility] Remisol Chloride [Moles/Vol] 102 mmol/L Normal 101 - 1 11 mmol/L [facility] CO2 [Moles/Vol] 22 mmol/L Normal 21 - 31 mmol/L [facility] Creatinine [Mass/Vol] 1.1 mg/dL Normal 0.5 - 1.3 mg/dL [facility] Remisol GFR/1.73 sq M.predicted among blacks MDRD (S/P/Bld) [Vol rate/Area] mL/min/1.73 m2 Normal >=59mL/min/1 .73 m2 [facility] Chem S GFR/1.73 sq M.predicted among non-blacks MDRD (S/P/Bld) [Vol rate/Area] mL/min/1.73 m2 Normal >=59mL/min/1 .73 m2 [facility] Chem S Glucose [Mass/Vol] 171 mg/dL Normal 55 - 199 mg/dL [facility] Potassium [Moles/Vol] 3.7 mmol/L Normal 3.5 - 5.3 mmol/L [facility] Sodium [Moles/Vol] 135 mmol/L Normal 135 - 145 mmol/L [facility] Urea nitrogen [Mass/Vol] 10 mg/dL Normal 5 - 21 mg/dL [facility] Remisol HEMATOLOGYOrdered By: Scarlett Nicholson on 05-13-2022 Erythrocyte distribution width (RBC) [Ratio] 13.9 % Normal 10.9 - 14.2 % [facility] HemeAutoSS Hematocrit (Bld) [Volume fraction] 47.7 % [...] 8.5 fL Normal 6.4 - 10.8 fL [facility] HemeAutoSS Platelets (Bld) [#/Vol] 210.0 E9/L Normal 150.0 - 500.0 E9/L [facility]eAutoSS RBC (Bld) [#/Vol] 5.6 E12/L Normal 4.3 - 5.9 E12/L [facility] HemeAutoSS WBC corrected for nucl RBC Auto (Bld) [#/Vol] 9.1 E9/L Normal 4.0 - 11.0 E9/L [facility] HemeAutoSS CALCULI, URINARYon 2 2,8 Dihydroxyadenine Normal [facility] Comment on above: Performed By: #### P OCGLUC #### [facility] [address] [place] [address] [address] Yash Mckeon Ammonium Acid Urate Normal [facility] Comment on above: Performed By: #### P OCGLUC #### [facility] [address] [place] [address] [address] Yash Mckeon Bilirubin Ql (U) Normal [facility] Comment on above: Performed By: #### P OCGLUC #### [facility] [address] [place] [address] [address] Yash Mckeon Ca Oxalate Dihydrate Normal [facility] Comment on above: Performed By: #### P OCGLUC #### [facility] [address] [place] [address] [address] Yash Mckeon CaHPO4 (Brushite) [facility] Comment on above: Performed By: #### P OCGLUC #### [facility] [address] [place] [address] [address] Yash Mckeon Calcium Bilirubinate Normal [facility] Comment on above: Performed By: #### P OCGLUC #### [facility] [address] [place] [address] [address] Yash Mckeon Calcium Carbonate [facility] Comment on above: Performed By: #### P OCGLUC #### [facility] [address] [place] [address] [address] Yash Mckeon Calcium Oxalate Monohydrate [facility] Comment on above: Performed By: #### P OCGLUC #### [facility] [address] [place] [address] [address] Yash Mckeon Calcium Palmitate [facility] Comment on above: Performed By: #### P OCGLUC #### [facility] [address] [place] [address] [address] Yash Mckeon Calcium Phosphate [facility] Comment on above: Performed By: #### P OCGLUC #### [facility] [facility] [address] [address] [address] Yash Mckeon Calcium Stearate Normal [facility] Comment on above: Performed By: #### P OCGLUC #### [facility] [address] [address] [address] Yash Mckeon Carbonate Apatite Normal [facility] Comment on above: Performed By: #### P OCGLUC #### [facility] [address] [address] [address] Yash Mckeon Cellular Material [facility] Comment on above: Performed By: #### P OCGLUC #### [facility] [address] [address] [address] Yash Mckeon Cholesterol [facility] Comment on above: Performed By: #### P OCGLUC #### [facility] [address] [address] [address] Yash Mckeon Color (U) Quigley Normal [facility] Comment on above: Performed By: #### P OCGLUC #### [facility] [address] [address] [address] Yash Mckeon Comment Comment Normal [facility] Comment on above: Result Comment: Lolly talline substances normally associated with human calculi were not identified. Specimen is consistent with organic material. Insufficient sample to perform additional, confirmatory, or reference testing. Performed By: #### P OCGLUC #### [facility] [address] [address] [address] Yash Mckeon Comment Normal [facility] Comment on above: Performed By: #### P OCGLUC #### [facility] [address] [place] [address] Dr. Yash Mckeon Comment: Comment Normal [facility] Comment on above: Result Comment: Diego gage questions regarding Calculi Analysis contact [employer] at: [phone]. Performed By: #### P OCGLUC #### [facility] [address] [address] [address] Yash Mckeon Composition Comment Normal [facility] Comment on above: Result Comment: Plea se see comment Performed By: #### P OCGLUC #### [facility] [address] [place] [address] Dr. Yash Mckeon Cystine [facility] Comment on above: Performed By: #### P OCGLUC #### [facility] [address] [address] [address] Yash Mckeon Disclaimer: Comment [facility] Comment on above: Result Comment: This test was developed and its performance characteristics determined by [facility]. It has not been cleared or approved by the Food and Drug Administration. Performed By: #### P OCGLUC #### [facility] [address] [address] [address] Yash Mckeon Dried Blood [facility] Comment on above: Performed By: #### P OCGLUC #### [facility] [address] [address] [address] Yash Mckeon Drug or Metabolite Normal [facility] Comment on above: Performed By: #### P OCGLUC #### [facility] [address] [address] [address] Yash Mckeon Hydroxyapatite [facility] Comment on above: Performed By: #### P OCGLUC #### [facility] [address] [address] [address] Yash Mckeon Mg NH4 PO4 (Struvite) [facility] Comment on above: Performed By: #### P OCGLUC #### [facility] [address] [address] [address] Yash Mckeon MgHPO4 (Newberyite) [facility] Comment on above: Performed By: #### P OCGLUC #### [facility] [address] [address] [address] Yash Mckeon Other component(s) Normal [facility] Comment on above: Performed By: #### P OCGLUC #### [facility] [address] [address] [address] Yash Mckeon PDF . [facility] Comment on above: Performed By: #### P OCGLUC #### [facility] [address] [address] [address] Yash Mckeon Photo TNP [facility] Comment on above: Result Comment: Test not performed No photo available Performed By: #### P OCGLUC #### [facility] [address] [address] [address] Yash Mckeon Please note: Comment [facility] Comment on above: Result Comment: Calc terry report will follow via computer, mail or business administration instructor delivery. Performed By: #### P OCGLUC #### [facility] [address] [address] [address] Yash Mckeon Size <1 [facility] Comment on above: Result Comment: Too small to measure. Performed By: #### P OCGLUC #### [facility] [address] [address] [address] Yash Mckeon Sodium Acid Urate [facility] Comment on above: Performed By: #### P OCGLUC #### [facility] [address] [address] [address] Yash Mckeon Source Comment [facility] Comment on above: Result Comment: Not provided Performed By: #### P OCGLUC #### [facility] [address] [address] [address] Yash Mckeon Triamterene [facility] Comment on above: Performed By: #### P OCGLUC #### [facility] [address] [place] [address] Dr. Yash Mckeon Uric Acid [facility] Comment on above: Performed By: #### P OCGLUC #### [facility] [address] [place] [address] Dr. Yash Mckeon Uric Acid Dihydrate Normal [facility] Comment on above: Performed By: #### P OCGLUC #### [facility] [address] [place] [address] Dr. Yash Mckeon Weight <1 [facility] Comment on above: Result Comment: Too small to weigh Performed By: #### P OCGLUC #### [facility] [address] [place] [address] Dr. Yash Mckeon Xanthine [facility] Comment on above: Performed By: #### P OCGLUC #### [facility] [address] [place] [address] Dr. Yash Mckeon CBC AUTO DIFFon 04-04-2022 BASO # 0.1 103/ul Normal 0.0-0.1 [facility] Comment on above: Performed By: #### C BC #### [facility] [address] [place] [address] Dr. Yash Mckeon Basophils/100 WBC (Bld) 0.9 % Normal 0.2-2.0 [facility] Comment on above: Performed By: #### C BC #### [facility] [address] [place] [address] Dr. Yash Mckeon EO # 0.4 103/ul Normal 0.0-0.7 [facility] Comment on above: Performed By: #### C BC #### [facility] [address] [place] [address] Dr. Yash Mckeon Eosinophils/100 WBC (Bld) 3.3 % Normal 0.9-7.0 [facility] Comment on above: Performed By: #### C BC #### [facility] [address] [place] [address] Dr. Yash Mckeon Erythrocyte distribution width (RBC) [Ratio] 13.8 % Normal 11.0-15.0 [facility] Comment on above: Performed By: #### C BC #### [facility] [address] [place] [address] Dr. Yash Mckeon Hematocrit (Bld) [Volume fraction] 48.7 % Normal 42.0-54.0 [facility] Comment on above: Performed By: #### C BC #### [facility] [address] [place] [address] Dr. Yash Mckeon Hemoglobin (Bld) [Mass/Vol] 16.1 g/dL Normal 14.0-18.0 [facility] Comment on above: Performed By: #### C BC #### [facility] [address] [place] [address] Dr. Yash Mckeon IG # 0.06 10e3/ul Critically high 0.00-0.03 [facility] Comment on above: Performed By: #### C BC #### [facility] [address] [place] [address] Dr. Yash Mckeon IG % 0.5 % Normal 0.0-0.5 [facility] Comment on above: Performed By: #### C BC #### [facility] [address] [place] [address] Dr. Yash Mckeon LYMPH # 4.1 103/ul Critically high 1.2-3.8 [facility] Comment on above: Performed By: #### C BC #### [facility] [address] [place] [address] Dr. Yash Mckeon Lymphocytes/100 WBC (Bld) 33.3 % Normal 20.5-60.0 [facility] Comment on above: Performed By: #### C BC #### [facility] [address] [place] [address] Dr. Yash Mckeon MANUAL DIFF REQ NO Normal [facility] Comment on above: Performed By: #### C BC #### [facility] [address] [place] [address] Dr. Yash Mckeon MCH (RBC) [Entitic mass] 29.0 pg Normal 25.9-34.0 [facility] Comment on above: Performed By: #### C BC #### [facility] [address] [place] [address] Dr. Yash Mckeon MCHC (RBC) [Mass/Vol] 33.1 g/dL Normal 29.9-35.2 [facility] Comment on above: Performed By: #### C BC #### [facility] [address] [place] [address] Dr. Yash Mckeon MCV (RBC) [Entitic vol] 87.6 fL Normal 80.0-94.0 [facility] Comment on above: Performed By: #### C BC #### [facility] [address] [place] [address] Dr. Yash Mckeon MONO # 1.0 103/ul Critically high 0.3-0.8 [facility] Comment on above: Performed By: #### C BC #### [facility] [address] [place] [address] Dr. Yash Mckeon Monocytes/100 WBC (Bld) 8.2 % Normal 1.7-12.0 [facility] Comment on above: Performed By: #### C BC #### [facility] [address] [place] [address] Dr. Yash Mckeon NEUT # 6.6 103/ul Critically high 1.4-6.5 [facility] Comment on above: Performed By: #### C BC #### [facility] [address] [place] [address] Dr. Yahs Mckeon Neutrophils/100 WBC (Bld) 53.8 % Normal 43.0-75.0 [facility] Comment on above: Performed By: #### C BC #### [facility] [address] [place], [place] [address] Dr. Yash Mckeon Platelet mean volume (Bld) [Entitic vol] 10.5 fL Normal 9.5-13.5 [facility] Comment on above: Performed By: #### C BC #### [facility] [address] [address] [address] Yash Mckeon PLT 260 103/ul Normal 150-450 [facility] Comment on above: Performed By: #### C BC #### [facility] [address] [address] [address] Yash Mckeon RBC 5.56 106/ul Normal 4.70-6.10 [facility] Comment on above: Performed By: #### C BC #### [facility] [address] [id number] Yash Mckeon WBC 12.2 103/ul Critically high 4.0-11.0 [facility] Comment on above: Performed By: #### C BC #### [facility] [address] [place] [address] ABD/PELVIS WO CONon [...] JUANITA DYKES Date: 2022-04-04 08:43 Normal [facility] CULTURE URINEon 04-04-2022 CULTURE URINE Culture Observations : LIGHT GROWTH OF MIXED SKIN BRIANNA. NO POTENTIAL PATHOGENS SEEN. Normal [facility] Comment on above: Performed By: #### P OCGLUC #### [facility] [address] [place] [address] Dr. Yash Mckeon ER URINE PROFILEon 2 Bilirubin Ql (U) Negative Normal NEGATIVE [facility] Comment on above: Performed By: #### Vincenzo KELLEY UMICRO #### [facility] [address] [place] [address] Dr. Yash Mckeon Clarity (U) SL CLOUDY Abnormal CLEAR [facility] Comment on above: Performed By: #### E RUR UMICRO #### [facility] [address] [place] [address] Dr. Yash Mckeon Color (U) BROWN Abnormal YELLOW [facility] Comment on above: Performed By: #### E RUR UMICRO #### [facility] [address] [place] [address] Dr. Yash DUBOSE A micrscopic examination will be performed if indicated. Normal [facility] Comment on above: Performed By: #### E RUR UMICRO #### [facility] [address] [place] [address] Dr. Yash Mckeon Glucose Ql (U) 100 mg/dl Abnormal NEGATIVE [facility] Comment on above: Performed By: #### SUNIL STEPHENSRO #### [facility] [address] [place] [address] Dr. Yash Mckeon Hemoglobin Ql (U) LARGE Abnormal NEGATIVE [facility] Comment on above: Performed By: #### Vincezno KELLEY UMICRO #### [facility] [address] [place] [address] Dr. Yash Mckeon Ketones Ql (U) TRACE Abnormal NEGATIVE [facility] Comment on above: Performed By: #### Vincenzo KELLEY UMICRO #### [facility] [address] [place] [address] Dr. Yash Mckeon LEUKOCYTES Negative Normal NEGATIVE [facility] Comment on above: Performed By: #### SUNIL STEPHENSRO #### [facility] [address] [place] [address] Dr. Yash Mckeon Nitrite Ql (U) Positive Abnormal NEGATIVE [facility] Comment on above: Performed By: #### SUNIL STEPHENSRO #### [facility] [address] [place] [address] Dr. Yash Mckeon pH (U) 5.0 [pH] Normal 5-9 [facility] Comment on above: Performed By: #### SUNIL STEPHENSRO #### [facility] [address] [place] [address] Dr. Yash Mckeon Protein (U) [Mass/Vol] 100 mg/dL Abnormal NEGATIVE/ TRACE [facility] Comment on above: Performed By: #### SUNIL STEPHENSRO #### [facility] [address] [place] [address] Dr. Yash Mckeon SPEC GRAVITY >=1.030 Abnormal 1.005-<=1.02 5 [facility] Comment on above: Performed By: #### SUNIL STEPHENSRO #### [facility] [address] [place] [address] Dr. Yash Mckeon UR MICRO IND INDICATED Normal [facility] Comment on above: Performed By: #### SUNIL STEPHENSRO #### [facility] [address] [place] [address] Dr. Yash Mckeon Urobilinogen Qn (U) 1.0 {Nathaniel'U}/dL Normal 0.2 - 1. 0 [facility] Comment on above: Performed By: #### E KALEIGH KELLEY #### [facility] [address] [address] [address] Yash Mckeon PROF CHEM 8 (BAS METB)on Anion gap [Moles/Vol] 16.0 mmol/L Normal [facility] Comment on above: Performed By: #### B MP #### [facility] [address] [address] [address] Yash Mckeon Calcium [Mass/Vol] 8.5 mg/dL Normal 8.5-10.1 [facility] Comment on above: Performed By: #### B MP #### [facility] [address] [place] [address] Dr. Yash Mckeon Chloride [Moles/Vol] 102 mmol/L Normal 98-107 [facility] Comment on above: Performed By: #### B MP #### [facility] [address] [address] [address] Yash Mckeon CO2 [Moles/Vol] 23.6 mmol/L Normal 21.0-32.0 [facility] Comment on above: Performed By: #### B MP #### [facility] [address] [place] [address] Dr. Yash Mckeon Creatinine [Mass/Vol] 1.17 mg/dL Normal 0.70-1.30 [facility] Comment on above: Performed By: #### B MP #### [facility] [address] [address] [address] Yash Mckeon EGFR-AF NIGERIAN >60 Normal >=60 [facility] Comment on above: Performed By: #### B MP #### [facility] [address] [place] [address] Dr. Yash Mckeon EGFR-NON AF NIGERIAN >60 Normal >=60 [facility] Comment on above: Performed By: #### B MP #### [facility] [address] [address] [address] Yash Mckeon Glucose [Mass/Vol] 234 mg/dL Critically high 74-106 [facility] Comment on above: Performed By: #### B MP #### [facility] [address] [place] [address] Dr. Yash Mckeon Potassium [Moles/Vol] 3.6 mmol/L Normal 3.5-5.1 [facility] Comment on above: Performed By: #### B MP #### [facility] [address] [place] [address] Dr. Yash Mckeon Sodium [Moles/Vol] 138 mmol/L Normal 136-145 [facility] Comment on above: Performed By: #### B MP #### [facility] [address] [place] [address] Dr. Yash Mckeon Urea nitrogen [Mass/Vol] 8.0 mg/dL Normal 7.0-18.0 [facility] Comment on above: Performed By: #### B MP #### [facility] [address] [place] [address] Dr. Yash Mckeon Urea nitrogen/Creatinine [Mass ratio] 6.8 mg/mg Normal [facility] Comment on above: Performed By: #### B MP #### [facility] [address] [place] [address] Dr. Yash Mckeon URINE MICROSCOPIC ONLYon BACTERIA TRACE Abnormal NONE SEEN [facility] Comment on above: Performed By: #### SUNIL STEPHENSRO #### [facility] [address] [place] [address] Dr. Yash Mckeon Bacteria identified Cx Nom (U) INDICATED Normal [facility] Comment on above: Performed By: #### SUNIL STEPHENSRO #### [facility] [address] [place] [address] Dr. Yash Mckeon CAST NONE SEEN Normal NONE SEEN [facility] Comment on above: Performed By: #### SUNIL STEPHENSRO #### [facility] [address] [place] [address] Dr. Yash Mckeon Crystals LM Nom (Urine sed) NONE SEEN Normal NONE SEEN [facility] Comment on above: Performed By: #### E RUR, UMICRO #### [facility] [address] [place] [address] Dr. Yash Mckeon Epithelial cells LM Ql (Urine sed) RARE Normal NONE SEEN /RARE [facility] Comment on above: Performed By: #### E RUR, UMICRO #### [facility] [address] [place] [address] Dr. Yash Mckeon MUCOUS NONE SEEN Normal NONE SEEN [facility] Comment on above: Performed By: #### E ALLIE, UMICRO #### [facility] [address] [place] [address] Dr. Yash Mckeon RBC 20-50 Abnormal 0-2 [facility] Comment on above: Performed By: #### Vincenzo KELLEY, UMICRO #### [facility] [address] [place] [address] Dr. Yash Mckeon WBC 0-2 Abnormal NONE SEEN [facility] Comment on above: Performed By: #### Vincenzo KELLEY ICRO #### [facility] [address] [place] [address] Dr. Yash Mckeon CBC AUTO DIFFon 02-17-2022 BASO # 0.1 103/ul Normal 0.0-0.1 [facility] Comment on above: Performed By: #### C BC #### [facility] [address] [place] [address] Dr. Yash Mckeon Basophils/100 WBC (Bld) 0.7 % Normal 0.2-2.0 [facility] Comment on above: Performed By: #### C BC #### [facility] [address] [place] [address] Dr. Yash Mckeon EO # 0.2 103/ul Normal 0.0-0.7 [facility] Comment on above: Performed By: #### C BC #### [facility] [address] [place] [address] Dr. Yash Mckeon Eosinophils/100 WBC (Bld) 1.6 % Normal 0.9-7.0 [facility] Comment on above: Performed By: #### C BC #### [facility] [address] [place] [address] Dr. Yash Mckeon Erythrocyte distribution width (RBC) [Ratio] 14.3 % Normal 11.0-15.0 [facility] Comment on above: Performed By: #### C BC #### [facility] [address] [address] [address] Yash Mckeon Hematocrit (Bld) [Volume fraction] 47.1 % Normal 42.0-54.0 [facility] Comment on above: Performed By: #### C BC #### [facility] [address] [place] [address] Dr. Yash Mckeon Hemoglobin (Bld) [Mass/Vol] 15.7 g/dL Normal 14.0-18.0 [facility] Comment on above: Performed By: #### C BC #### [facility] [address] [place] [address] Dr. Yash Mckeon IG # 0.05 10e3/ul Critically high 0.00-0.03 [facility] Comment on above: Performed By: #### C BC #### [facility] [address] [place] [address] Dr. Yash Mckeon IG % 0.5 % Normal 0.0-0.5 [facility] Comment on above: Performed By: #### C BC #### [facility] [address] [place] [address] Dr. Yash Mckeon LYMPH # 2.9 103/ul Normal 1.2-3.8 [facility] Comment on above: Performed By: #### C BC #### [facility] [address] [place] [address] Dr. Yash Mckeon Lymphocytes/100 WBC (Bld) 29.8 % Normal 20.5-60.0 [facility] Comment on above: Performed By: #### C BC #### [facility] [address] [place] [address] Dr. Yash Mckeon MANUAL DIFF REQ NO Normal [facility] Comment on above: Performed By: #### C BC #### [facility] [address] [address] [address] Yash Mckeon MCH (RBC) [Entitic mass] 29.2 pg Normal 25.9-34.0 [facility] Comment on above: Performed By: #### C BC #### [facility] [address] [place] [address] Dr. Yash Mckeon MCHC (RBC) [Mass/Vol] 33.3 g/dL Normal 29.9-35.2 [facility] Comment on above: Performed By: #### C BC #### [facility] [address] [place] [address] Dr. Yash Mckeon MCV (RBC) [Entitic vol] 87.7 fL Normal 80.0-94.0 [facility] Comment on above: Performed By: #### C BC #### [facility] [address] [place] [address] Dr. Yash Mckeon MONO # 0.7 103/ul Normal 0.3-0.8 [facility] Comment on above: Performed By: #### C BC #### [facility] [address] [place] [address] Dr. Yash Mckeon Monocytes/100 WBC (Bld) 6.8 % Normal 1.7-12.0 [facility] Comment on above: Performed By: #### C BC #### [facility] [address] [place] [address] Dr. Yash Mckeon NEUT # 5.9 103/ul Normal 1.4-6.5 [facility] Comment on above: Performed By: #### C BC #### [facility] [address] [place] [address] Dr. Yash Mckeon Neutrophils/100 WBC (Bld) 60.6 % Normal 43.0-75.0 [facility] Comment on above: Performed By: #### C BC #### [facility] [address] [place] [address] Dr. Yash Mckeon Platelet mean volume (Bld) [Entitic vol] 10.3 fL Normal 9.5-13.5 [facility] Comment on above: Performed By: #### C BC #### [facility] [address] [address] [address] Yash Mckeon PLT 240 103/ul Normal 150-450 [facility] Comment on above: Performed By: #### C BC #### [facility] [address] [place] [address] Dr. Yash Mckeon RBC 5.37 106/ul Normal 4.70-6.10 [facility] Comment on above: Performed By: #### C BC #### [facility] [address] [place] [address] Dr. Yash Mckeon WBC 9.8 103/ul Normal 4.0-11.0 [facility] Comment on above: Performed By: #### C BC #### [facility] [address] [place] [address] Dr. Yash Mckeon Covid-19 PCR (CVDTBH)on 01-23 SARS-CoV-2 (COVID-19) RNA TALIB+probe Ql (Unsp spec) Not detected Normal NOT DETECTED [facility] Comment on above: Result Comment: When [...] for this test is supported by the [place] of Health and Human Service's declaration that [...] used). Performed By: #### C VDTBH #### [facility] [address] [place] [address] Dr. Yash Mckeon D-DIMERon 02-17-2022 D-DIMER <0.19 Normal <=0.59 [facility] Comment on above: Performed By: #### D DIM #### [facility] [address] [place] [address] Dr. Yash Mckeon D-DIMER COMMENTS SEE BELOW Normal [facility] Comment on above: Result Comment: [...] hospitalization. Performed By: #### D DIM #### [facility] [address] [place] [address] Dr. Yash Mckeon PROF CHEM 8 (BAS METB)on Anion gap [Moles/Vol] 13.0 mmol/L Normal [facility] Comment on above: Performed By: #### P OCGLUC #### [facility] [address] [place] [address] Dr. Yash Mckeon Calcium [Mass/Vol] 9.2 mg/dL Normal 8.5-10.1 The [facility] Comment on above: Performed By: #### P OCGLUC #### [facility] [address] [place] [address] Dr. Yash Mckeon Chloride [Moles/Vol] 102 mmol/L Normal 98-107 [facility] Comment on above: Performed By: #### P OCGLUC #### [facility] [address] [place] [address] Dr. Yash Mckeon CO2 [Moles/Vol] 28.2 mmol/L Normal 21.0-32.0 The [facility] Comment on above: Performed By: #### P OCGLUC #### [facility] [address] [place] [address] Dr. Yash Mckeon Creatinine [Mass/Vol] 1.10 mg/dL Normal 0.70-1.30 [facility] Comment on above: Performed By: #### P OCGLUC #### [facility] [address] [address] [address] Yash Mckeon EGFR-AF NIGERIAN >60 Normal >=60 [facility] Comment on above: Performed By: #### P OCGLUC #### [facility] [address] [address] [address] Yash Mckeon EGFR-NON AF NIGERIAN >60 Normal >=60 [facility] Comment on above: Performed By: #### P OCGLUC #### [facility] [address] [address] [address] Yash Mckeon Glucose [Mass/Vol] 174 mg/dL Critically high 74-106 T [facility] Comment on above: Performed By: #### P OCGLUC #### [facility] [address] [address] [address] Yash Mckeon Potassium [Moles/Vol] 4.2 mmol/L Normal 3.5-5.1 [facility] Comment on above: Performed By: #### P OCGLUC #### [facility] [address] [address] [address] Yash Mckeon Sodium [Moles/Vol] 139 mmol/L Normal 136-145 [facility] Comment on above: Performed By: #### P OCGLUC #### [facility] [address] [address] [address] Yash Mckeon Urea nitrogen [Mass/Vol] 12.0 mg/dL Normal 7.0-18.0 [facility] Comment on above: Performed By: #### P OCGLUC #### [facility] [address] [address] [address] Yash Mckeon Urea nitrogen/Creatinine [Mass ratio] 10.9 mg/mg Normal [facility] Comment on above: Performed By: #### P OCGLUC #### [facility] [address] [place] [address] Dr. Yash Mckeon TROPONIN, HIGH SENSITIVITYon 02-17-2022 HSTROP <4.0 Normal 4.0-76.1 [facility] Comment on above: Result Comment: CUT- OFF POINTS HAVE BEEN ESTABLISHED BASED ON THE FOURTH UNIVERSAL DEFINITIONS OF MYOCARDIAL INFARCTION. THE UPPER REFERENCE LIMIT (URL) OF TROPONIN, DEFINED THE 99TH PERCENTILE OF cTnI DISTRIBUTION IN A REFERENCE POPULATION, HAS BEEN CONFIRMED THE DECISION THRESHOLD FOR IN DIAGNOSIS. Performed By: #### P OCGLUC #### [facility] [address] [place], [place] [address] Dr. Yash Mckeon XR RIBS RT PA [...] JUANITA DYKES Date: 2022-02-17 15:26 Normal [facility] BASIC METABOLIC PANELon 08-25 Anion gap [Moles/Vol] 17 mmol/L Normal 10 - 20 [facility] Comment on above: Performed By: #### B MP #### [address] [address] Calcium [Mass/Vol] 8.7 mg/dL Normal 8.6 - 10.3 [facility] Comment on above: Performed By: #### B MP #### [address] [address] Chloride [Moles/Vol] 103 mmol/L Normal 98 - 107 [facility] Comment on above: Performed By: #### B MP #### [address] [place] [address] Creatinine [Mass/Vol] 0.88 mg/dL Normal 0.50 - 1.30 [facility] Comment on above: Performed By: #### B MP #### [address] [address] GFR- AM. >60 Normal >60 [facility] Comment on above: Result Comment: CALC ULATIONS OF ESTIMATED GFR ARE PERFORMED USING THE MDRD STUDY EQUATION FOR THE IDMS-TRACEABLE CREATININE METHODS. CLIN CHEM 2007;53:766-72 Performed By: #### B MP #### [address] [address] GFR-NON AM. >60 Normal >60 [facility] Comment on above: Performed By: #### B MP #### [address] [place] [address] Glucose [Mass/Vol] 252 mg/dL High 74 - 99 [facility] Comment on above: Performed By: #### B MP #### [address] [address] HCO3 (Bld) [Moles/Vol] 19 mmol/L Low 21 - 32 [facility] Comment on above: Performed By: #### B MP #### [address] [address] Potassium [Moles/Vol] 4.1 mmol/L Normal 3.5 - 5.3 [facility] Comment on above: Performed By: #### B MP #### [address] [address] Sodium [Moles/Vol] 135 mmol/L Low 136 - 145 [facility] Comment on above: Performed By: #### B MP #### [address] [address] Urea nitrogen [Mass/Vol] 13 mg/dL Normal 6 - 23 [facility] Comment on above: Performed By: #### B MP #### [address] [address] GLUCOSE-POCTon 09-05-2020 Glucose [Mass/Vol] 276 mg/dL High 74 - 99 [facility] Comment on above: Performed By: #### G LATA #### [address] [address] History and Physical - Surgi kellie Update [...] Last Updated: 05-Sep-2020 11:26 by Nicky Swartz) [facility] Operative Reports - [facility] 09-05-2020 Operative Reports - [facility] PREOPERATIVE INDICATION: Phimosis. PREOPERATIVE DIAGNOSIS: Phimosis. POSTOPERATIVE [...] NICKY SWARTZ MD EST EST DICTATION NUMBER: [id number] INTERNAL JOB NUMBER: [id number] Electronic Signatures: Nicky Swartz) (Signed on 15-Sep-2020 07:34) Authored Unsigned, Draft (SYS GENERATED) (Entered on 06-Sep-2020 07:26) Entered Last Updated: 15-Sep-2020 07:34 by Nicky Swartz) Normal [facility] Order Reconciliationon 09-05 Order Reconciliation Page [...] Discharge Diagnosis< N47.1 Phimosis Discharge Provider, Nicky wSartz Discharge Disposition : .Home Condition at Discharge: [...] be shared with your follow-up providers (doctor, lpn instructor, physical therapist, etc.). Follow Up with in [...] be shared with your follow-up providers (doctor, lpn instructor, physical therapist, etc.). Follow Up with in [...] but has not started this yet Normal [facility] Histologyon 09-05-2020 [facility]ology Name BRIAN TSE Pathologist: CHRIS MACEDO [...] 2.5 x 0.5 x 0.5 cm respectively. [employer] Counselor sections are submitted in 1 cassette. TNB tnb/09/05/2020 [facility] [place] Department of Pathology [address] [place] [address] Normal [facility] Comment on above: Performed By: #### P #### [facility] [address] [address] [facility] [address] Preop Checkliston 09-05-2020 Preop Checklist Preop Checklist: Preop Checklist: Arrival [id number] Arrival Time09:42 Procedure TypeCIRCUMCISION Temperature C36.2 degrees C Temperature F97.1 degrees F Heart Rate70 beats per minute Respiratory Rate18 breath per minute Blood Pressure Upqsswal941 mm/Hg Blood Pressure Rtjroqutk81 mm/Hg ID Band Onyes Allergy Bandno known [...] 05-Sep-2020 09:48 by Zainab Laguna (SUKHJINDER) Normal [facility] URINE CULTURE,BACTERIALon URINE CULTURE,BACTERIAL PATIENT: BRIAN TSE LOCATION: [facility]#: [id number] : 82 AGE: SEX: M ORDERED BY: NICKY SWARTZ SOURCE: URINE COLLECTED: 09/05/20 08:16 ANTIBIOTICS AT REINA.: RECEIVED : 09/05/20 11:32 SITE: R E S U L T S URINE CULTURE,BACTERIAL FINAL 09/06/20 07:51 NO SIGNIFICANT GROWTH. Normal [facility] Comment on above: Performed By: #### U [facility] #### [facility] [address] [place] [address] CORONAVIRUS 2019, SCREEN ASY MPTOMATICon 09-03-2020 CORONAVIRUS 2019,PCR NOT DETECTED Normal Not Detected [facility] Comment on above: Result Comment: . This [...] patient management decisions. Fact sheet for providers: https://www.fda.gov/media/862132/download Fact sheet for patients: https://www.fda.gov/media/772256/download This test has received FDA Emergency Use Authorization (EUA) and has been verified by [facility] ([facility]). This test is only authorized for the duration of time that circumstances exist to justify the authorization of the emergency use of in vitro diagnostic tests for the detection of SARS-CoV-2 virus and/or diagnosis of COVID-19 infection under section 564(b)(1) of the Act, 21 U.S.C. 360bbb-3(b)(1), unless the authorization is terminated or revoked sooner. [facility] is certified under CLIA-88 as qualified to perform high complexity testing. Testing is performed in the [facility] laboratories located at [address] [place] [address]. Performed By: #### C OVSC #### [place] [address] Lab Specimen Source Nasal, Nasopharyngeal Normal [facility] Comment on above: Performed By: #### C OVSC #### [place] [address] Covid 19 Resultson 1 Covid 19 Results [...] You may also be contacted by the [facility] to see if any of your [...] or Naproxen (Aleve) can also be used. Wlhw-gmv-htkrmop cough and cold medicines can be used according to the instructions on the package. Some kujl-opl-nspyewn medicines also contain acetaminophen. Make sure you [...] water are not available, use alcohol-based hand pepper cutter. Avoid touching your eyes, nose, and mouth [...] a total of 10 days. Additional resources: [facility] COVID Hotline at 0-065-2GAKTSQ ( ). COVID-19 Careline at (availabl e 24 hours per day, seven days a week if you or a loved one is experiencing anxiety related to the coronavirus pandemic). Clinical research opportunities: is conducting research studies to develop better testing and treatments for COVID. Do you want any information on how to participate Call [phone]. Websites: hospitals.org or www.CDC.gov Follow My Health / My UHCare (for other test results): Revised 06/10/2020 Electronic Signatures: Satinder Rajan (ADMIN) (Signature pending) Authored Last Updated: 03-Sep-2020 21:24 by Satinder Rajan (ADMIN) Normal [facility] CNOVon 10-14-2017 CNOV Office Visit (LOORRM) BRIAN PEÑA ([id number]) 1980 MDate Time Provider Department10/14/17 11:00 AM NAHOMY SHARP) LOORRClint During your visit today, we recorded the [...] 60 tabletRfl: 1 CONSULT TO PHYSICAL THERAPY [9032] Order #: [id number]: 1Prescriptions as of 10/14/2017 Sig: ATORVASTATIN 10 [...] Historical Med Sig: Disc: Erroneous entryEncounter Number: [id number] Status:Closed by NAHOMY SHARP PA-C on 10/14/17 [facility] PROGRESSon 10-14-2017 PROGRESS HNO ID: [id number]: Nahomy (Fatmata SharpService: (none)Author Type: Physician AssistantType: Progress NotesFiled: 10/14/2017 [...] fileFAMILY HISTORY:No family history on file. Normal [facility] PROGRESS HNO ID: [id number]: Nahomy Sharp (Pa)Service: Orthopaedic SurgeryAuthor Type: Physician AssistantType: Progress NotesFiled: 10/20/2017 3:42 PMNote Text: [facility] [address] [place], [place] [address] CLINIC NOTE Department of Orthopaedics - PAM KeitaAME: TSEBRIAN NO.: [id number] OF SERVICE: 10/14/2017CHIEF COMPLAINT: Right shoulder pain.HISTORY [...] doeshelp some temporarily. He was [facility] followed by an MRI. He is here todayfor further evaluation and discussion of treatment. He is qhfb-tfielxg-ckhnivryl diabetic who was under poor control several [...] lifting anything heavy. 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 They show some AC joint arthritis. Goodacromiohumeral distance. No significant glenohumeral arthritis. Noevidence of fracture. No other osseous abnormalities.MRI: MRI dated 10/01/2017 from [facility] shows a mildrotator cuff tendinosis, but no [...] for physical therapy, which he will doat [facility] in [place] for 4-6 [facility] Discussed possibly a cortisone injection at that time ifnecessary. Declines today as he does not like needles.Dictated By: Pepe Zurita Dictated: 10/19/2017Date Typed: daria 10/19/2017JOB# [id number] Normal [facility] SR-MRI Shoulder w/o Contrast Right IMPORTon 10-01-2017 SR-MRI Shoulder w/o Contrast Right IMPORT Images were obtained outside of [facility] [id number] Normal [facility] SR-XR Shoulder Complete Righ t IMPORTon 09-13-2017 SR-XR Shoulder Complete Right IMPORT Images were obtained outside of [facility] [id number] Normal [facility] Vital Signs Date Time Vital Sign Value Performing Clinician Facility 05-07-2024 14:57-0400 Body height 180.3 cm Don Santos DPM FACFAS Work Phone: [facility] 05-07-2024 14:57-0400 Body mass index (BMI) [Ratio] 33.61 kg/m2 Don Santos DPM FACFAS Work Phone: [facility] 05-07-2024 14:57-0400 Body weight 109.32 kg Don Santos DPM FACFAS Work Phone: [facility] 05-07-2024 14:57-0400 Diastolic blood pressure 79 mm[Hg] Don Santos DPM FACFAS Work Phone: [facility] 05-07-2024 14:57-0400 Heart rate 74 /min Don Santos DPM FACFAS Work Phone: [facility] 05-07-2024 14:57-0400 Systolic blood pressure 128 mm[Hg] Don Santos DPM FACFAS Work Phone: [facility] 02-14-2024 16:11-0400 Body temperature 98.78 [degF] [facility] 02-14-2024 16:11-0400 Diastolic blood pressure 86 mm[Hg] [facility] 02-14-2024 16:11-0400 Heart rate 79 /min [facility] 02-14-2024 16:11-0400 Respiratory rate 18 /min [facility] 02-14-2024 16:11-0400 SaO2% (BldA) [Mass fraction] 98 % [facility] 02-14-2024 16:11-0400 Systolic blood pressure 131 mm[Hg] Reddy Thao [facility] 2023 11:48-0400 Body height 176.5 cm Yuko Waite PROPERTY INSURANCE AGENT-ASPHALT SPREADER Work Phone: [facility] [employer] [facility] 2023 11:48-0400 Body mass index (BMI) [Ratio] 31.16 kg/m2 Yuko Waite PROPERTY INSURANCE AGENT-ASPHALT SPREADER Work Phone: [facility] [email or web address] 2023 11:48-0400 Body temperature 98.1 [degF] Yuko Waite PROPERTY INSURANCE AGENT-ASPHALT SPREADER [facility] 20[facility] 11:48-0400 Body weight 97.07 kg Yuko Waite PROPERTY INSURANCE AGENT-ASPHALT SPREADER [facility] 2023 11:48-0400 Diastolic blood pressure 74 mm[Hg] Yuko Waite PROPERTY INSURANCE AGENT-ASPHALT SPREADER Work Phone: [facility] [email or web address] 2023 11:48-0400 Heart rate 65 /min Yuko Waite PROPERTY INSURANCE AGENT-ASPHALT SPREADER [facility] 2023 11:48-0400 SaO2% (BldA) [Mass fraction] 99 % Yuko Waite PROPERTY INSURANCE AGENT-ASPHALT SPREADER Work Phone: [employer] 2023 11:48-0400 Systolic blood pressure 124 mm[Hg] Yuko Waite PROPERTY INSURANCE AGENT-ASPHALT SPREADER Work Phone: [employer] 01-06-2023 10:25-0400 Body height 177.8 cm Georgia Del Cid Other [place] Other 01-06-2023 10:25-0400 Body mass index (BMI) [Ratio] 31.1 kg/m2 Georgia Del Cid Other [facility] Other 01-06-2023 10:25-0400 Body temperature 98.7 [degF] Georgia Maria Eugenia Other [facility] Other 01-06-2023 10:25-0400 Body weight 98.34 kg Georgia Martinoley Other [facility] Other 01-06-2023 10:25-0400 Diastolic blood pressure 88 mm[Hg] Georgia Maria Eugenia Other [facility] Other 01-06-2023 10:25-0400 Respiratory rate 18 /min Georgia Maria Eugenia Other [facility] Other 01-06-2023 10:25-0400 SaO2% (BldA) [Mass fraction] 98 % Georgia Maria Eugenia Other [facility] Other 01-06-2023 10:25-0400 Systolic blood pressure 136 mm[Hg] Georgia Maria Eugenia Other [facility] Other 05-20-2022 16:12-0400 Blood Pressure Location Nicky NILL [facility] 05-20-2022 16:12-0400 Body temperature 98.06 [degF] Nicky NILL [facility] 05-20-2022 16:12-0400 Diastolic blood pressure 74 mm[Hg] Nicky NILL [facility] 05-20-2022 16:12-0400 Heart rate 79 /min Nicky NILL [facility] 05-20-2022 16:12-0400 Mean blood pressure 85 mm[Hg] Nicky NILL [facility] 05-20-2022 16:12-0400 Respiratory rate 16 /min Nicky NILL [facility] 05-20-2022 16:12-0400 SaO2% (BldA) [Mass fraction] 96 % Nicky NILL [facility] 05-20-2022 16:12-0400 Systolic blood pressure 106 mm[Hg] Nicky NILL [facility] 05-20-2022 14:41-0400 Blood Pressure Location Nicky NILL [facility] 05-20-2022 14:41-0400 Body temperature 98.06 [degF] Nicky NILL [facility] 05-20-2022 14:41-0400 Diastolic blood pressure 83 mm[Hg] Nicky NILL [facility] 05-20-2022 14:41-0400 Heart rate 70 /min Nicky NILL [facility] 05-20-2022 14:41-0400 Respiratory rate 16 /min Nicky NILL [facility] 05-20-2022 14:41-0400 SaO2% (BldA) [Mass fraction] 99 % Nicky NILL [facility] 05-20-2022 14:41-0400 Systolic blood pressure 135 mm[Hg] Nicky NILL [facility] 05-20-2022 14:38-0400 Body temperature 97.52 [degF] Nicky NILL [facility] 05-20-2022 14:38-0400 Diastolic blood pressure 85 mm[Hg] Nicky NILL [facility] 05-20-2022 14:38-0400 Heart rate 67 /min Nicky NILL [facility] 05-20-2022 14:38-0400 Respiratory rate 14 /min Nicky NILL [facility] 05-20-2022 14:38-0400 SaO2% (BldA) [Mass fraction] 100 % Nicky NILL [facility] 05-20-2022 14:38-0400 Systolic blood pressure 122 mm[Hg] Nicky NILL [facility] 05-20-2022 14:25-0400 Respiratory rate 11 /min Nicky NILL [facility] 05-20-2022 14:15-0400 Respiratory rate 15 /min Nicky NILL [facility] 05-20-2022 13:41-0400 Blood Pressure Location Nicky NILL [facility] 05-20-2022 13:41-0400 Body temperature 97.52 [degF] Nicky NILL [facility] 05-20-2022 13:35-0400 Respiratory rate 14 /min Nicky NILL [facility] 05-20-2022 10:00-0400 Body temperature 98.06 [degF] Nicky NILL [facility] 05-20-2022 10:00-0400 Mean blood pressure 103 mm[Hg] Nicky NILL [facility] 05-20-2022 10:00-0400 Heart rate 66 /min Nicky NILL [facility] 05-13-2022 12:32-0400 Blood Pressure Location Nicky NILL [facility] 05-13-2022 12:32-0400 BP/Pulse Patient Position Nicky NILL [facility] 05-13-2022 12:32-0400 Diastolic blood pressure 86 mm[Hg] Nicky NILL [facility] 05-13-2022 12:32-0400 Heart rate 67 /min Nicky NILL [facility] 05-13-2022 12:32-0400 Mean blood pressure 102 mm[Hg] Nicky NILL [facility] 05-13-2022 12:32-0400 Respiratory rate 18 /min Nicky NILL [facility] 05-13-2022 12:32-0400 Systolic blood pressure 134 mm[Hg] Nicky NILL [facility] 05-13-2022 12:30-0400 Blood Pressure Location Nicky NILL [facility] 05-13-2022 12:30-0400 BP/Pulse Patient Position Nicky NILL [facility] 05-13-2022 12:30-0400 Diastolic blood pressure 83 mm[Hg] Nicky NILL [facility] 05-13-2022 12:30-0400 Heart rate 69 /min Nicky NILL [facility] 05-13-2022 12:30-0400 Mean blood pressure 102 mm[Hg] Nicky NILL [facility] 05-13-2022 12:30-0400 SaO2% (BldA) [Mass fraction] 97 % Nicky NILL [facility] 05-13-2022 12:30-0400 Systolic blood pressure 140 mm[Hg] Nicky NILL [facility] 05-13-2022 12:30-0400 Body temperature 97.7 [degF] Nicky NILL [facility] 04-27-2022 09:05-0400 Blood Pressure Location Nicky NILL [facility] [place] 04-27-2022 09:05-0400 Diastolic blood pressure 95 mm[Hg] Nicky NILL [facility] 04-27-2022 09:05-0400 Heart rate 58 /min Nicky NILL [facility] 04-27-2022 09:05-0400 Respiratory rate 16 /min Nicky NILL [facility] 04-27-2022 09:05-0400 Systolic blood pressure 141 mm[Hg] Nicky AMANDAL [facility] 04-23-2022 11:11-0400 Blood Pressure Location Patrick OWEN [facility] 04-23-2022 11:11-0400 Diastolic blood pressure 87 mm[Hg] Patrick OWEN [facility] 04-23-2022 11:11-0400 Heart rate 75 /min Patrick OWEN [facility] 04-23-2022 11:11-0400 Respiratory rate 16 /min Patrick OWEN [facility] 04-23-2022 11:11-0400 Systolic blood pressure 130 mm[Hg] Patrick OWEN [facility] Encounters Encounter Date Encounter Type Care Provider Facility Start: 05-07-2024 End: 05-07-2024 Office outpatient visit 25 minutes Don Santos DPM FACFAS Work Phone: [facility] Comment on above: 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) (Primary Dx); Abscess of toe, right; Contusion of right foot, initial encounter; Right foot pain Start: 05-07-2024 End: 05-07-2024 ambulatory DON MONGEHAILY Not Available Start: 05-07-2024 End: 05-07-2024 Bamboo flowsheet Don D Dolce DPM FACFAS Work Phone: [facility] Start: 05-07-2024 End: 05-07-2024 Bamboo flowsheet Don D Dolce DPM FACFAS Work Phone: [facility] Start: 02-14-2024 End: 02-14-2024 Emergency department patient visit Reddy Eloisa Master [facility] Start: 2023 End: 2023 Office outpatient visit 15 minutes [facility] Comment on above: Encounter for occupa tional physical examination (Primary Dx); Type 2 diabetes mellitus without complication, without long-term current use of insulin (CMS-HCC); Anxiety; Sleep disturbance Start: 04-18-2023 End: 04-18-2023 Patient encounter procedure Patrick OWEN [facility] Start: 01-06-2023 End: 01-06-2023 ambulatory Georgia Del Cid Other [facility] Other Start: 01-06-2023 Office outpatient vi sit 15 minutes Georgia Del Cid [facility] Start: 11-30-2022 End: 11-30-2022 ambulatory Imad Asaad Facility:[facility] Start: 11-04-2022 End: 11-04-2022 ambulatory Imad Asaad Other [place] Other Start: 11-04-2022 Telephone encounter Imsai Colunga [facility] Start: 10-28-2022 End: 10-28-[address] PATRICK OWEN . Facility:[facility] Start: 10-26-[address] PATRICK DELGADLILO . Facility:[facility] Start: 10-22-2022 End: 10-23-[address] PATRICK OWEN . Facility:[facility] Start: 10-21-2022 End: 10-21-2022 ambulatory Domonique Myers Facility:[facility] Start: 10-21-2022 End: 10-21-2022 ambulatory DO Jude Ruvalcaba III Work Phone: [facility] Work Phone: Start: 10-21-2022 End: 10-21-2022 Patient encounter procedure DO Jude Ruvalcaba III Work Phone: [facility] Work Phone: Start: 06-25-2022 End: 06-25-2022 Patient encounter procedure Nicky R NILL [facility] [place] Start: 06-02-2022 End: 06-02-2022 Patient encounter procedure Nicky Guidry NILL [facility] [place] Start: 05-20-2022 End: 05-20-2022 Admission to same day surgery center Nicky Guidry NILL [facility] Start: 05-13-2022 End: 05-13-2022 Patient encounter procedure Nicky Guidry NILL [facility] Start: 04-27-2022 End: 04-27-2022 Patient encounter procedure Nicky R NILL [facility] Start: 04-23-2022 End: 04-23-[address] PATRICK OWEN . Facility:[facility] Start: 04-23-2022 End: 04-23-2022 Patient encounter procedure Patrick OWEN [facility] [place] Start: 04-04-2022 End: 04-04-2022 ambulatory SALBADOR BOOKER Facility:[facility] Start: 02-17-2022 End: 02-17-2022 ambulatory UMM SILVERMAN . Facility:[facility] Start: 10-14-2017 End: 10-17-2017 Ambulatory NAHOMY (MAZIN) [facility] Procedures Date Procedure Procedure Detail Performing Clinician Start: 07-04-2023 Adult depression scr eening assessment Yuko Waite [employer] Work Phone: Start: 10-21-2022 Plain chest X-ray DO Yasmine Ruvalcaba III Work Phone: Start: 09-27-2022 Microalbumin [Mass/v olume] in Urine by Test strip Yuko Waite [employer] Work Phone: Start: 05-20-2022 Laparoscopy surg rpr initial inguinal hernia Nicky CHRISTINA Start: 11-03-2020 Follow-up visit Start: 08-28-2020 Follow-up visit Start: 02-27-2015 [facility] bunionectomy, right Patrick OWEN Start: 01-02-2015 [place] bunionectomy, left foot Patrick OWEN Start: 10-23-2012 Hemorrhoidectomy Willi OWEN Cholecystectomy Patrick BANUELOS Circumcision Patrick OWEN Colonoscopy Patrick OWEN Colonoscopy Patrick OWEN Laparoscopic cholecystectomy Patrick OWEN Lateral sphincterotomy Amy OWEN removal of ingrown toenail 1 Patrick OWEN Comment on above: left great toe removal of ingrown toenail 1 Nicky CHRISTINA Comment on above: left great toe Tooth extraction Patrick DELGADILLO Plan of Treatment Date Care Activity Detail Author Start: 10-26-2024 Adult BMI Screening Adult BMI Screen ing [facility] Start: 10-26-2024 Tobacco Screening Tobacco Screening [facility] Start: 07-04-2024 Depression Screening Depression Scre ening [facility] Start: 05-21-2024 End: 05-21-2024 Patient encounter procedure 05/21/2024 3:40 PM EDT Office Visit [facility] [address] [place] [id number] Don Santos, DPM FACFAS [address] [place] [address] [facility] Start: 05-07-2024 End: 05-07-2024 Patient encounter procedure 05/07/2024 2:40 PM EDT Office Visit [facility] [address] [place] [address] Don Santos, DPM FACFAS [address] [place] [address] Arrived [facility] Comment on above: Arrived Start: 03-25-2024 Influenza vaccination [facility] Start: 01-30-2024 End: 01-30-2024 Patient encounter procedure 01/30/2024 4:15 PM EDT Office Visit [facility] [address] [place] [address] [place] [address] Yuko Waite APRN-CNP [address] [place] [address], [facility] Nancy [place] [address] [facility] Start: 12-17-2023 Adult BMI Follow Up Plan Adult BMI Follow Up Plan [facility] Start: 10-31-2023 End: 10-31-2023 Patient encounter procedure 10/31/2023 4:00 PM EDT Office Visit [facility] [address] [place] [address] [place] [address] Yuko Waite APRN-CNP [address] [place] [address], [place] [address] [facility] Start: 09-28-2023 Urine screening for protein Urine Microalbumin [facility] Start: 09-09-2022 Diabetic foot examination Diabetic Foot Exam [facility] Start: 2000 DTaP,Tdap and Td Vaccines (1 - Tdap) DTaP,Tdap and Td Vaccines (1 - Tdap) [facility] Start: 1981 Glaucoma screening Diabetic Op hthalmology Exam [facility] Start: 1981 Tobacco Counseling Tobacco Counselin g [facility] Immunizations Immunization Date Immunization Notes Care Provider Fa cility NEGATED: Highlighted row has not occurred!09-09-2021 influenza, injectable, quadrivalent, preservative free Yuko Waite PROPERTY INSURANCE AGENT-[employer]PH[employer] SPREADER Work Phone: [facility] Comment on above: Deferred: Patient de cision Payers Date Payer Category Payer Private Health Insurance [facility] MEDICAID [id number] 2022 Self-pay [id number] 2022 Medicaid [employer] HMO [id number] 2022-Present [phone] [address] [place] [address] [id number] 1981 Unknown [id number] [id number]. 593 1981 Unknown [id number] 2.16.840.1.233988.3.579.2. 593 1981 Unknown [id number] 2.16.840.1.890298.3.579.2. 593 1981 Unknown [id number] 2.16.840.1.368249.3.579.2. 593 1981 Unknown [id number] 2.16.840.1.512967.3.579.2. 593 1981 Unknown [id number] 2.16.840.1.654659.3.579.2. 593 1981 Unknown [id number] 2.16.840.1.592826.3.579.2. 593 1981 Unknown [id number] 2.16.840.1.605522.3.579.2. 1259 1981 Unknown [id number] 2.16.840.1.101622.3.579.2. 727 1959 Medicaid [id number] 1958 Medicaid [id number] Unknown [id number] 2.16.840.1.698998.3.579.2. 531 Unknown [id number] 2.16.840.1.078769.3.579.2. 531 Social History Date Type Detail Facility Start: 01-31-2020 End: 04-23-2022 Tobacco smoking status Smoker (finding) [facility] Start: 2023 End: 05-07-2024 Sex Assigned At Male [facility] Start: 04-27-2022 Tobacco smoking status Heavy t obacco smoker (finding) [facility] Comment on above: Smoker [facility] on [facility]: [facility] Start: 1980 Sex Assigned At Male [facility] Start: 09-27-2022 End: 05-07-2024 Tobacco smoking status KYIS Smokes tobacco daily [facility] History of tobacco use Cigarette Smoker [facility] Start: 09-27-2022 End: 05-07-2024 Cigarettes smoked current (pack per day) - Reported 1 [facility] Start: 09-27-2022 End: 05-07-2024 Tobacco use and exposure Smokeless tobacco non-user [facility] Start: 2023 Alcohol intake Ex-drinker (finding) [facility] Start: 1980 Sex Assigned At Not on file P [facility] Start: 02-14-2024 Tobacco smoking status Light t obacco smoker (finding) [facility] Tobacco smoking stat us NHIS Tobacco smoking consumption unknown [facility] Start: 05-07-2024 Alcoholic beverage intake Current drinker of alcohol (finding) [facility] Medical Equipment Procedure Code Equipment Code Equipment Origin al Text Equipment Identifier Dates INGUINAL HERNIA REPAIR ADULT Nicky CHRISTINA MD 05/20/22 Non Biological Abdomen [id number] FDA Start: 05-20-2022 Monitor blood padilla gar daily [id number] Start: 2023 1 Unit by miscellaneous route in the morning. [id number] Start: 07-05-2023 Monitor blood padilla gar daily [id number] Start: 07-05-2023 End: 2023 Functional Status Date Assessment Result Facility 02-14-2024 Functional Status N/A [facility] 05-13-2022 Functional Status No [facility] 04-27-2022 Functional Status N/A [facility] 04-23-2022 Functional Status N/A [facility] Clinical Notes 04-23-2022 to 05-07-2024 Don Santos DPM FACFAS - 05/07/2024 2:40 PM EDT Note Date & Type Note Facility 05-07-2024 History of Present illness Narrative Images from the original note were not included. Patient: Brian Tse : 1980 PCP: [facility] Claudette Brannon MD SUBJECTIVE This is a 43 y.o. male presents today with a chief complaint of a painful ingrown toenail with associated soft tissue abscess right foot. The state the pain has been present for several weeks and has progressively worsened. They have attempted trimming the nail back to no avail. They have noticed erythema and drainage coming from the affected border of the nail. They have attempted soaking the nail and topical antibiotics to no avail. The patient rates the pain a scale from 1-10 as a 8 with 10 being the worst pain of their lives. Patient states he developed a contusion secondary to stubbing his toe Allergies: Allergies Allergen Reactions Metformin Diarrhea Varenicline Other Reaction(s): Other: See Comments Very bad dreams Past Medical History: Past Medical History: Diagnosis Date Diabetes mellitus ([facility]) Medications: Current Outpatient Medications: glyBURIDE (Diabeta) 5 MG tablet, TAKE 1 TABLET BY MOUTH EVERY MORNING AND AT NIGHT WITH MEALS, Disp: , Rfl: cephalexin (Keflex) 500 MG capsule, Take 1 capsule (500 mg) by mouth in the morning and 1 capsule (500 mg) in the evening and 1 capsule (500 mg) before bedtime. Do all this for 10 days. TAKE 1 PILL P.O. T.I.D. FOR 10 DAYS., Disp: 30 capsule, Rfl: 0 mupirocin (Bactroban) 2 % ointment, Apply 1 application topically in the morning and 1 application before bedtime. Do all this for 14 days., Disp: 30 g, Rfl: 1 Review of systems: Constitutional: Denies fever, chills, nausea, vomiting GI: Denies abdominal pain, cramping, loose stool, gastric ulcers Musculoskeletal: Denies low back pain, knee pain, systemic arthritis Neurologic: Denies burning, tingling, transient paralysis OBJECTIVE Physical Examination: DERM: Positive hair growth to b/l feet with good skin turgor noted. Negative openings in skin. The right great toe is incurvated and painful at the nail border. There is significant erythema and drainage with abscess formation noted. Pain on direct palpation of the incurvated border. Localized erythema circumferentially around the digit. There is no ascending cellulitis or lymphangitis noted. VASC: DP /PT were palpable bilateral. Capillary refill time < 3 seconds Digits 1-5 bilateral NEURO: [place] Alisa 5.07 monofilament was intact B/L. Vibratory sensation was intact B/L Musculoskeletal: Muscle strength was +5 over 5 all intrinsic and extrinsic muscles tested. ASSESSMENT 1. Abscess of toe, right 2. Contusion of right foot, initial encounter 3. Right foot pain 4. Type II diabetes mellitus with neurological manifestations (CMS/[facility]) PLAN I educated the patient the contusion of his great toe on the right. Consent forms were signed for the procedure today. The digit was anesthetized with 3 cc of 2% lidocaine plain. The digit was prepped and draped in the usual sterile manner. The offending nail border was freed proximally and at the nail bed. The nail was then split and removed in toto. The abscess was drained and copiously lavaged with normal sterile saline. Dressings consisted of Silvadene 4x4s and Coban. The patient was instructed to change the dressing daily. 1. A diabetic foot exam was performed and the patient was educated on the foot complications related to diabetes. Instructed to contact our office if any foot problems develop before next visit. 2. Patient was instructed on the continued importance of diabetic foot care along with proper diet and keeping their blood sugar under control to prevent complications. 3. I also educated the patient on diabetic peripheral neuropathy both sensory as well as autonomic neuropathy. I recommended routine inspections of their feet on a regular basis to prevent long-term foot problems related to diabetic ulcerations. ALEXIS Sawyer documented in this encounter [place] [id number] Hospital Discharge instructions Patient Education 02/14/2024 17:04:58 How to [...] by your health care provider. Follow the customer care specialist's instructions for use. Tighten and properly adjust [...] provider. Document Revised: 05/04/2021 Document Reviewed: 05/04/2021 Elsevier Patient Education 2022 [employer] 02/14/2024 17:04:58 Foot Sprain Foot Sprain A [...] cast on your foot. General instructions Take uwnf-yec-qxmqbse and prescription medicines only as told by [...] provider. Document Revised: 10/31/2020 Document Reviewed: 10/31/2020 [employer] Patient Education 2022 [employer]. Follow Up Care 02/14/2024 15:59:39 With:SALBADOR BOOKER Address: [address] [place] [phone] Business (1) When:02/17/2024 16:55:32 Comments:Return to the emergency room if your pain gets worse or any new symptoms. [facility] 02-14-2024 Note ED Patient Education Note [...] your health care provider. ? Follow the customer care specialist's instructions for use. ? Tighten and properly [...] provider. Document Revised: 05/04/2021 Document Reviewed: 05/04/2021 [employer] Patient Education ? 2022 [employer]. Foot Sprain A foot sprain is an [...] You may put (more content not included)... [facility] 02-14-2024 Evaluation + Plan note Extrac ekaterina from: Title:ED Note Author:Reddy Thao M.D. te:02/14/24 1. Sprain of left foot (S93. 602A: Unspecified sprain of left foot, initial encounter) Orders: ibuprofen, 600 mg = 1 tab(s), Tab, Oral, Once, Stop date 02/14/24 16:22:00 EDT, STAT, Start date 02/14/24 16:22:00 EDT, 02/14/24 16:22:00 EDT Post-op Shoe XR Foot 3+ Views Left [facility]04-04-2024 History of Present illness Narrative* Yuko Waite, PROPERTY INSURANCE AGENT-ASPHALT SPREADER - 2023 11:45 AM EDT Subjective Patient ID: Brian Tse is a 42 y.o. male. GEGE Torres presents to the office for physical exam as he is in the [employer] at [employer]. He will finish at the end of [...] complication, without long-term current use of insulin ([facility]) - blood sugar diagnostic (glucose blood) strip; [...] STEPHEN Ochoa 10/27/23 1548 [facility]* Encounter Date Diagnosis Assessment Notes [...] worsening. Patient verbalized understanding of treatment plan. [place] Other 04-13-2023 Hospital Discharge instructions Follow Up Care 11/04/2022 10:27:15 With:Patrick OWEN MD, URL Address: [facility] [address] , [place] [phone] When: Unknown [facility] 2022 Hospital Discharge instructions Patient Education 05/20/2022 14:32:40 Post Op Patient Instructions - FT (CUSTOM) Follow Up Care 04/27/2022 09:44:58 With:Nicky CHRISTINA Address: [facility] [address], [address] [employer] [address] [place] [phone]- Business (1) When:7 to [address] [facility]09-30-2022 Hospital Discharge instructions Patient Education 04/23/2022 12:05:06 Kidney Stones, Qwiz-nz-Wlcg Kidney Stones Kidney stones are rock-like masses [...] Follow these instructions at home: Medicines Take fkbn-lgv-fcgawcz and prescription medicines only as told by [...] 12/27/2008 Document Revised: 11/27/2019 Document Reviewed: 11/27/2019 [employer] Patient Education 2020 [employer]. Follow Up Care 04/22/2022 09:22:48 With:Patrick OWEN MD, URL Address: [address] [place], [place] [id number]- When: Unknown [facility] evaluation + Plan note Future Appointments Appointment Date:04/27/2022 09:00:00 AM Scheduled Provider:Nicky CHRISTINA MD Location:[facility] Appointment Type:[place] [address] Appointment Date:10/22/2022 08:45:00 AM Scheduled Provider:Patrick OWEN MD Location:[facility] Appointment Type:URO Office Visit Diagnostic Tests Pending * Calculi Analysis Urinary 04/23/22 [facility] evaluation + Plan note Future Appointments Appointment Date:05/13/2022 12:30:00 PM Scheduled Provider: Location:[employer] Appointment Type:Surgical PAT FT Appointment Date:05/13/2022 01:30:00 PM Scheduled Provider: Location:[facility] Appointment Type:Surgery PAT COVID Testing Appointment Date:05/20/2022 11:30:00 AM Scheduled Provider: Location:[facility] Appointment Type:Surgery FT Appointment Date:10/22/2022 08:45:00 AM Scheduled Provider:Patrick OWEN MD [facility] Appoint[facility] Type:URO Office Visit [facility] Evaluation + Plan note Future Appointments Appointment Date:05/20/2022 11:30:00 AM Scheduled Provider: Location:[facility] Appointment Type:Surgery FT Appointment Date:10/22/2022 08:45:00 AM Scheduled Provider:Patrick OWEN MD Location[facility] Appointment Type:URO [facility] Future Appointments Appointment Date:10/22/2022 08:45:00 AM Scheduled Provider:Patrick OWEN MD Location:[facility] Appointment Type:URO [facility] Future Appointments Appointment Date:06/22/2022 02:40:00 PM Scheduled Provider:Nicky CHRISTINA MD Location: [place] Appointment Type: Post Op 15 Appointment Date:10/22/2022 08:45:00 AM Scheduled Provider:Patrick OWEN MD Location:[facility] Appointment Type:URO Office Visit [facility] [place] Evaluyaxsl noteNo assessment information available [facility] Work Phone: Evaluwsczb noteNo InformationNort [employer]™ Other Evalukiozc note* Diagnosis Encounter for occupational physical examination- Primary Type 2 diabetes mellitus without complication, without long-term current use of insulin ([facility]) Anxiety Anxiety state, unspecified Sleep disturbance Unspecified sleep disturbance [facility] Diagnosis Type II diabetes mellitus with neurological manifestations (CMS/HCC)- Primary Type II or unspecified type diabetes mellitus with neurological manifestations, not stated as uncontrolled Abscess of toe, right Contusion of right foot, initial encounter Right foot pain Pain in soft tissues of limb documented in this encounter [facility] Narrative - Reported* Type Description Date Medical History Diabetes Medical History Renal calculi Medical History Hematochezia Surgical History CHOLECYSTECTOMY Surgical History HEMORRHOIDECTOMY Surgical History Foot Surgery Surgical History bunionectomy [place] Other Hospital course Narrative No data available for this section [facility] Hospital Discharge instructions No data available for this section [facility] InstructionsNot on filedocumented in [facility] encounter [facility] No data available for this section [facility] Summary Purpose Family History No Family History [...] Diagnosis: Phimosis, N47.1 Surgeon: Nicky Swartz Resident/Fellow/Other Master Fisher: Radha Madrigal Procedure: 1. CIRCUMCISION Anesthesia: No [...] section and content) DATE CREATED AUTHOR 01/12/2018 [facility] DATE CREATED AUTHOR AUTHOR'S ORGANIZ ATION 09/16/2020 [facility] DATE CREATED AUTHOR AUTHOR'S ORGANIZ ATION 11/04/2020 [facility] DATE CREATED AUTHOR AUTHOR'S ORGANIZ ATION 11/04/2020 [facility] DATE CREATED AUTHOR AUTHOR'S ORGANIZ ATION 12/04/2022 [facility] [place] [facility] DATE CREATED AUTHOR AUTHOR'S ORGANIZ ATION 12/06/2022 [facility] DATE CREATED AUTHOR AUTHOR'S ORGANIZ ATION 05/09/2024 [facility] EPIC DATE CREATED AUTHOR AUTHOR'S ORGANIZ ATION 05/26/2024 [facility] Care Team (unrecognized sect ion and content) Team Status: Active Member Role Status Dates Jude Ruvalcaba III , DO Primary Care Provider Active Team Status: Inactive Member Role Status Dates Jude Ruvalcaba III , DO Primary Care Provider Active Domonique Myers APRN Attending Provider Active City Editor Relationship Specialty Start Date End Date Yuko Waite APRN-ASPHALT SPREADER PCP - General Nurse Practitioner 07/04/23 City Editor Relationship Specialty Start Date End Date Unallocated, Lorna Wilkins MD [address] [place] [address] PCP - General Family Medicine 05/04/24 City Editor Relationship Specialty Start Date End Date Unallocated, Lorna Wilkins MD [address] [facility] [place] [address] PCP - General Family Medicine 05/04/24 Goals (unrecognized section and content) Goals may be documented in a n alternate section REASON FOR VISIT (unrecogniz ed section and content) Reason Comments Annual Exam Reason Comments Ingrown Toenail RT grt nail injury FOR RECORDS PERTAINING TO PATIENTS WHO ARE [...] BE BASED ON THE PRIMARY CLINICAL RECORDS. [facility] [employer] [facility]. provides no warranty or guarantee of the accuracy or completeness of information in this document.
== END 2024-06-11 15:10 | disposition home or self-care (01) ==
PROVIDERS: Visit Provider Orthopaedic Surgery
DX: M79.672 Pain in left foot (principal); M65.872 Other synovitis and tenosynovitis, left ankle and foot
CPT/HCPCS: 73718

== ENCOUNTER 2024-06-13 21:47 | Emergency (ER) | payer OTHER, SELFPAY ==
--- OUTSIDE RECORDS SUMMARY | 2024-06-13 21:52 | XMS_ITS | CCD ---
Author Organization [facility] Care Team Providers [employer] Director Name Role Phone NAHOMY SHARP (MAZIN) [...] Provider SALBADOR BOOKER Primary Care Physician DON SANTOS Attending Unavailable Unallocated , [facility] Provider Primary Care Provi devora Reddy Thao Attending Unavailable Allergies Allergy Classification Reported Allergen(s) Allergy Type Date of Onset Reaction(s) Facility [facility] (1 source) metFORMIN; Translations: [metformin] Drug Allergy Diarrhea (finding) [facility] (11 sources) metFORMIN; Translations: [metformin] Drug Allergy 3 Diarrhea (finding), Diarrhea [facility] (1 source) metFORMIN Drug Allergy [facility] (2 sources) varenicline Drug Allergy 8 [facility] (1 source) Acetaminophen / oxyCODONE; Translations: [Percocet 5/325] Drug Allergy [facility]ository (1 source) No Known Medication Allergies; Translations: [No Known Medication Allergies] Propensity to adverse reactions (disorder) [facility] Repository Medications Current Medications Medication Drug Class(es) Dates Sig (Normalized) Sig (Original) acetaminophen 325 mg / oxyCODONE hydrochloride 5 mg oral tablet (1 source) Opioid Agonist Start: 05-20-2022 End: 05-25-2022 Percocet 325 mg-5 mg Tab 1 tab(s), Oral, q3hr Pain, 20 tab(s), Refill(s) 0, take with food or milk, [facility]/pharmacy #[id number], 180, cm, 05/13/22 12:43:00 EDT, Height/Length Dosing, [...] 2 tab(s), Refills(s) 0, Pharmacy: [facility] [id number], 173, cm, 07/30/20 10:33:00 EST, Height/Length [...] complication, without long-term current use of insulin ([facility]) TAKE 1 TABLET BY MOUTH IN THE [...] Ordered Start: 02-04-2020 take [facility] by [facility] twelve hours Omeprazole 40 [...] Daily, # 30 cap(s), Refills(s) 0, Pharmacy: [facility]/pharmacy #[id number], 180, cm, 10/22/22 9:12:00 EDT, Height/Length [...] 10 day(s) Jan, Not-Taking polyethylene glycol 3350 [id number] mg / potassium chloride 2970 mg / sodium bicarbonate 6740 mg / sodium chloride 5860 mg / sodium sulfate 36798 mg powder for oral solution (3 sources) [...] 8 09-09-2021 Chronic Other 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 (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; Translations: [HALF-WAY USE ORAL 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 DX] Onset: Episodic Other [...] 2023 ED Clinical Summary ED Clinical Summary [place] [address] ED Clinical Summary Person Information Name: BRIAN TSE Maria D/[facility] Age: 43 Years : 1980 Sex: Male Language: Kenyan PCP: SALBADOR BOOKER CNP Marital Status: Single Phone: [phone] Visit Id: Visit Reason: Foot pain-swelling; LT [...] 02/14/2024 17:04:58 02/14/2024 17:04:58 02/14/2024 17:04:58 ADDRESS: [facility] [address] [facility] [id number] PHYS DOC NOTES: MEDICAL INFORMATION: Prescriptions Given: Medications to Continue with No Changes Other Medications glyBURIDE (GlyBURIDE (Eqv-Micronase) 5 mg oral tablet) 1 Tablets By Mouth 2 times a day. tamsulosin (tamsulosin 0.4 mg Cap) 1 Capsules By Mouth every day. Refills: 0. PATIENT EDUCATION INFORMATION: Instructions: How to Use a Cast Shoe; Foot Sprain Follow up: With: Address: When: SALBADOR BOOKER [address] [place] [address] [phone] [employer] (1) In 3 days 02/17/2024 Comments: Return to the emergency room if your pain gets worse or any new symptoms. DIAGNOSIS: 1:Sprain of left foot Normal [facility] ED Note-Physicianon 02-14-20 24 ED [...] and Complexity of Problems Differential Diagnosis: [] [facility] Data External documents reviewed: [] My EKG [...] BOOKER In 3 days 02/17/2024 EDT [address] [place] [address] Business (1) Additional Instructions: Return [...] Views Left (more content not included)... Normal [facility] Comment on above: Result Comment: Elec tronically Signed By: Master Olivo, Reddy Amin\.br\Date and Time Signed: 02/14/24 16:56 EDT ED Patient Summaryon 024 ED Patient Summary ED Patient Summary [address] [address] Patient Discharge Instructions Person Information Name: BRIAN TSE Age: 43 Years Arrival Date: 02/14/2024 15:56:45 Discharge Diagnosis: 1:Sprain of left foot Primary Care Physician: SALBADOR BOOKER CNP Provider Information Primary Provider: Reddy Thao M.D. Advanced Supervisor Dog License Officer:None The exam and treatment you received in the Emergency Department were for an urgent problem and are not intended as complete care. It is important that you follow up with a doctor, nurse practitioner, or physician?s transportation assistant for ongoing care. If your symptoms [...] Follow-up Instructions: With: Address: When: SALBADOR BOOKER [address] [place] [address] [phone] [employer] (1) In 3 days 02/17/2024 Comments: Return [...] opioids can be used to help relieve nixctfap-mb-ilxpuy pain and are often prescribed following a [...] tell you (more content not included)... Normal [facility] XR Foot 3+ Views Lefton [...] mGy = . DAP = . Normal [facility] Glucose Poct Glucometerson 0 11-30-2022 Glucose [Mass/Vol] 155 mg/dL Normal [facility] Comment on above: Result Comment: [facility] Glucose Reference Range is dependent on time and content of last meal. Glucose of more than 200 mg/dL in a nonstressed, ambulatory subject supports the diagnosis of Diabetes Mellitus. PERFORMED BY: [facility] [address] [place] [address] PATHOLOGIST CONFIGURATION TECHNICIAN IGLESIA SANCHEZ M.D. Performed By: #### G STIVEN #### Point of Care testing , Roland 11-30-2022 L --- Specimen: [id number] Received: 11/30/22 Status: JAGDISH Ye Num: [id number] Spec Type: Surgical Subm Dr: Edvin Colunga MD Tissues: A Colon Biopsy (ASCENDING POLYP) Procedures: HE/2, Gross/Micro L4 Age/ Patient Sex Location Account Attending Physician Brian Tse /[facility] [id number] Edvin Colunga MD SPEC NUM: [id number] RECD: 11/30/22 STATUS: JAGDISH BELCHER NUM: [id number] REINA: 11/30/22 DR: Edvin Colunga MD ENTERED: 11/30/22 [facility] DR: REBECA TYPE: Surgical DEPT: S ORDERED: [...] support the above pathologic diagnosis. CPT Codes 11613 Specimen: [id number] Received: 11/30/22 Status: JAGDISH Belcher Num: [id number] Spec Type: Surgical Subm Dr: Edvin Colunga MD Tissues: A Colon Biopsy (ASCENDING POLYP) Procedures: HE/2, Gross/Micro L4 Patient: Brian Tse [id number] (Continued) Signed (signature on file) Daily Quarles MD 12/01/22 1158 Normal [facility] CBC AUTO DIFFon 10-28-2022 BASO # 0.1 103/ul Normal 0.0-0.1 [facility] Comment on above: Performed By: #### C BC #### [facility] [address] [place] [address] Dr. Yash Mckeon Basophils/100 WBC (Bld) 0.8 % Normal 0.2-2.0 [facility] Comment on above: Performed By: #### C BC #### [facility] [address] [place] [address] Dr. Yash Mckeon EO # 0.4 103/ul Normal 0.0-0.7 [facility] Comment on above: Performed By: #### C BC #### [facility] [address] [place] [address] Dr. Yash Mckeon Eosinophils/100 WBC (Bld) 3.3 % Normal 0.9-7.0 [facility] Comment on above: Performed By: #### C BC #### [facility] [address] [place] [address] Dr. Yash Mckeon Erythrocyte distribution width (RBC) [Ratio] 14.0 % Normal 11.0-15.0 [facility] Comment on above: Performed By: #### C BC #### [facility] [address] [place] [address] Dr. Yash Mckeon Hematocrit (Bld) [Volume fraction] 45.4 % Normal 42.0-54.0 [facility] Comment on above: Performed By: #### C BC #### [facility] [address] [place] [address] Dr. Yash Mckeon Hemoglobin (Bld) [Mass/Vol] 14.8 g/dL Normal 14.0-18.0 [facility] Comment on above: Performed By: #### C BC #### [facility] [address] [place] [address] Dr. Yash Mckeon IG # 0.04 10e3/ul Critically high 0.00-0.03 [facility] Comment on above: Performed By: #### C BC #### [facility] [address] [place] [address] Dr. Yash Mckeon IG % 0.4 % Normal 0.0-0.5 [facility] Comment on above: Performed By: #### C BC #### [facility] [address] [place] [address] Dr. Yash Mckeon LYMPH # 2.8 103/ul Normal 1.2-3.8 [facility] Comment on above: Performed By: #### C BC #### [facility] [address] [place] [address] Dr. Yash Mckeon Lymphocytes/100 WBC (Bld) 25.3 % Normal 20.5-60.0 [facility] Comment on above: Performed By: #### C BC #### [facility] [address] [place] [address] Dr. Yash Mckeon MANUAL DIFF REQ NO Normal [facility] Comment on above: Performed By: #### C BC #### [facility] [address] [place] [address] Dr. Yash Mckeon MCH (RBC) [Entitic mass] 28.6 pg Normal 25.9-34.0 [facility] Comment on above: Performed By: #### C BC #### [facility] [address] [place] [address] Dr. Yash Mckeon MCHC (RBC) [Mass/Vol] 32.6 g/dL Normal 29.9-35.2 [facility] Comment on above: Performed By: #### C BC #### [facility] [address] [place] [address] Dr. Yash Mckeon MCV (RBC) [Entitic vol] 87.8 fL Normal 80.0-94.0 [facility] Comment on above: Performed By: #### C BC #### [facility] [address] [place] [address] Dr. Yash Mckeon MONO # 1.0 103/ul Critically high 0.3-0.8 [facility] Comment on above: Performed By: #### C BC #### [facility] [address] [place] [address] Dr. Yash Mckeon Monocytes/100 WBC (Bld) 8.6 % Normal 1.7-12.0 [facility] Comment on above: Performed By: #### C BC #### [facility] [address] [place] [address] Dr. Yash Mckeon NEUT # 6.9 103/ul Critically high 1.4-6.5 [facility] Comment on above: Performed By: #### C BC #### [facility] [address] [place] [address] [address] Yash Mckeon Neutrophils/100 WBC (Bld) 61.6 % Normal 43.0-75.0 [facility] Comment on above: Performed By: #### C BC #### [facility] [address] [place] [address] [address] Yash Mckeon Platelet mean volume (Bld) [Entitic vol] 10.0 fL Normal 9.5-13.5 [facility] Comment on above: Performed By: #### C BC #### [facility] [address] [place] [address] Dr. Yash Mckeon PLT 250 103/ul Normal 150-450 [facility] Comment on above: Performed By: #### C BC #### [facility] [address] [place] [address] Dr. Yash Mckeon RBC 5.17 106/ul Normal 4.70-6.10 [facility] Comment on above: Performed By: #### C BC #### [facility] [address] [place] [address] Dr. Yash Mckeon WBC 11.2 103/ul Critically high 4.0-11.0 [facility] Comment on above: Performed By: #### C BC #### [facility] [address] [place] [address] Dr. Yash Mckeon POINT OF CARE GLUCOSEon Glucose [Mass/Vol] 219 mg/dL Critically high 74-106 T [facility] Comment on above: Performed By: #### P OCGLUC #### [facility] [address] [place] [address] Dr. Yash Mckeon PROF CHEM 8 (BAS METB)on Anion gap [Moles/Vol] 11.8 mmol/L Normal [facility] Comment on above: Performed By: #### B MP #### [facility] [address] [place] [address] Dr. Yash Mckeon Calcium [Mass/Vol] 8.6 mg/dL Normal 8.5-10.1 [facility] Comment on above: Performed By: #### B MP #### [facility] [address] [place] [address] [address] Yash Mckeon Chloride [Moles/Vol] 101 mmol/L Normal 98-107 [facility] Comment on above: Performed By: #### B MP #### [facility] [address] [place] [address] Dr. Yash Mckeon CO2 [Moles/Vol] 28.0 mmol/L Normal 21.0-32.0 [facility] Comment on above: Performed By: #### B MP #### [facility] [address] [place] [address] Dr. Yash Mckeon Creatinine [Mass/Vol] 1.13 mg/dL Normal 0.70-1.30 [facility] Comment on above: Performed By: #### B MP #### [facility] [address] [place] [address] Dr. Yash Mckeon EGFR-AF COOK ISLANDER >60 Normal >=60 [facility] Comment on above: Performed By: #### B MP #### [facility] [address] [place] [address] Dr. Yash Mckeon EGFR-NON AF COOK ISLANDER >60 Normal >=60 [facility] Comment on above: Performed By: #### B MP #### [facility] [address] [place] [address] Dr. Yash Mckeon Glucose [Mass/Vol] 196 mg/dL Critically high 74-106 [facility] Comment on above: Performed By: #### B MP #### [facility] [address] [place] [address] Dr. Yash Mckeon Potassium [Moles/Vol] 3.8 mmol/L Normal 3.5-5.1 [facility] Comment on above: Performed By: #### B MP #### [facility] [address] [place] [address] Dr. Yash Mckeon Sodium [Moles/Vol] 137 mmol/L Normal 136-145 [facility] Comment on above: Performed By: #### B MP #### [facility] [address] [place] [address] Dr. Yash Mckeon Urea nitrogen [Mass/Vol] 14.0 mg/dL Normal 7.0-18.0 [facility] Comment on above: Performed By: #### B MP #### [facility] [address] [place] [address] Dr. Yash Mckeon Urea nitrogen/Creatinine [Mass ratio] 12.4 mg/mg Normal [facility] Comment on above: Performed By: #### B MP #### [facility] [address] [place] [address] Dr. Yash Mckeon PROTIMEon 10-28-2022 INR Coag (PPP) [Relative time] {INR} Normal [facility] Comment on above: Performed By: #### P OCGLUC #### [facility] [address] [place] [address] Dr. Yash Mckeon INR GUIDELINES SEE BELOW Normal [facility] Comment on above: Result Comment: ZAN RED INR: 2.0 - 3.0 CONDITIONS NOT LISTED BELOW 2.5 - 3.5 FOR PROSTHETIC HEART VALVE REPLACEMENT 2.5 - 3.5 RECURRENT THROMBOSIS Performed By: #### P OCGLUC #### [facility] [address] [place] [address] Dr. Yash Mckeon PT Coag (PPP) [Time] 9.8 s Normal 9.0-11.6 [facility] Comment on above: Performed By: #### P OCGLUC #### [facility] [address] [place] [address] Dr. Yash Mckeon PTTon 10-28-2022 aPTT Coag (Bld) [Time] 30.5 s Normal 22.3-36.2 [facility] Comment on above: Performed By: #### P OCGLUC #### [facility] [address] [place] [address] Dr. Yash Mckeon XR KUB 1 VIEWon [...] SABI FREEMAN Date: 2022-10-28 08:00 Normal [facility] XR KUB 1 VIEWon 10-25-2022 XR [...] JUANITA DYKES Date: 2022-10-25 06:41 Normal [facility] XR ribs RT min 3V w CXR1V*on 10-21-2022 XR ribs RT min 3V w CXR1V* [facility] Main [place] [address] [place] [address] XRay Report Signed Patient: Brian Tse MR#: [id number] : 1980 Acct:[id number] Age/Sex: 41 / M ADM Date: 10/21/22 Loc: [facility] Room: Type: [facility] Attending Dr: Domonique Myers APRN Copies [...] Linda Sierra M.D.10/21/2022 2:10 PM Dictation Location: [place] [address] Transcribed By: [facility] 10/21/22 1410 Dictated By: Linda Sierra MD 10/21/22 1406 Signed By: 10/21/22 1410 [facility] CHEMISTRYOrdered By: Lab ROP User on 05-20-2022 Glucose [Mass/Vol] 173 mg/dL High 55 - 99 mg/dL [facility] POC Subsection Comment on above: Result Comment: Dayanara alcantar RN/ POC Device SN [id number] Invalid Interpretation Code [facility] POC Subsection POC User ID [id number] Invalid Interpretation Code [facility] POC Subsection POC Username CHINEDU POSADAS Invalid Interpretation Code [facility] POC Subsection CHEMISTRYOrdered By: SYSTEM SYSTEM on 05-13-2022 Anion gap [Moles/Vol] 15 mmol/L Normal 6 - 16 mEq/L [facility] Remisol Chloride [Moles/Vol] 102 mmol/L Normal 101 - 1 11 mmol/L [facility] CO2 [Moles/Vol] 22 mmol/L Normal 21 - 31 mmol/L [facility] Creatinine [Mass/Vol] 1.1 mg/dL Normal 0.5 - 1.3 mg/dL [facility] Remisol GFR/1.73 sq M.predicted among blacks MDRD (S/P/Bld) [Vol rate/Area] mL/min/1.73 m2 Normal >=59mL/min/1 .73 m2 [facility] Chem S GFR/1.73 sq M.predicted among non-blacks MDRD (S/P/Bld) [Vol rate/Area] mL/min/1.73 m2 Normal >=59mL/min/1 .73 m2 [facility] Chem S Glucose [Mass/Vol] 171 mg/dL Normal 55 - 199 mg/dL [facility] Potassium [Moles/Vol] 3.7 mmol/L Normal 3.5 - 5.3 mmol/L [facility] Sodium [Moles/Vol] 135 mmol/L Normal 135 - 145 mmol/L [facility] Urea nitrogen [Mass/Vol] 10 mg/dL Normal 5 - 21 mg/dL [facility] Remisol HEMATOLOGYOrdered By: Scarlett Nicholson on 05-13-2022 [...] 8.5 fL Normal 6.4 - 10.8 fL [facility] HemeAutoSS Platelets (Bld) [#/Vol] 210.0 E9/L Normal 150.0 - 500.0 E9/L FT HemeAutoSS RBC (Bld) [#/Vol] 5.6 E12/L Normal 4.3 - 5.9 E12/L [facility] HemeAutoSS WBC corrected for nucl RBC Auto (Bld) [#/Vol] 9.1 E9/L Normal 4.0 - 11.0 E9/L [facility] HemeAutoSS CALCULI, URINARYon 2 2,8 Dihydroxyadenine Normal [facility] Comment on above: Performed By: #### P OCGLUC #### [facility] [address] [place] [address] [address] Yash Mckeon Ammonium Acid Urate Normal [facility] Comment on above: Performed By: #### P OCGLUC #### [facility] [address] [place] [address] [address] Yash Mckeon Bilirubin Ql (U) Normal [facility] Comment on above: Performed By: #### P OCGLUC #### [facility] [address] [place] [address] [address] Yash Mckeon Ca Oxalate Dihydrate Normal [facility] Comment on above: Performed By: #### P OCGLUC #### [facility] [address] [place] [address] [address] Yash Mckeon CaHPO4 (Brushite) [facility] Comment on above: Performed By: #### P OCGLUC #### [facility] [address] [place] [address] [address] Yash Mckeon Calcium Bilirubinate Normal [facility] Comment on above: Performed By: #### P OCGLUC #### [facility] [address] [place] [address] [address] Yash Mckeon Calcium Carbonate [facility] Comment on above: Performed By: #### P OCGLUC #### [facility] [address] [place] [address] [address] Yash Mckeon Calcium Oxalate Monohydrate [facility] Comment on above: Performed By: #### P OCGLUC #### [facility] [address] [place] [address] [address] Yash Mckeon Calcium Palmitate Stephan [facility] Comment on above: Performed By: #### P OCGLUC #### [facility] [address] [place] [address] [address] Yash Mckeon Calcium Phosphate [facility] Comment on above: Performed By: #### P OCGLUC #### [facility] [address] [place] [address] [address] Yash Mckeon Calcium Stearate Normal [facility] Comment on above: Performed By: #### P OCGLUC #### [facility] [address] [place] [address] [address] Yash Mckeon Carbonate Apatite Normal [facility] Comment on above: Performed By: #### P OCGLUC #### [facility] [address] [place] [address] [address] Yash Mckeon Cellular Material [facility] Comment on above: Performed By: #### P OCGLUC #### [facility] [address] [place] [address] [address] Yash Mckeon Cholesterol [facility] Comment on above: Performed By: #### P OCGLUC #### [facility] [address] [address] [address] Yash Mckeon Color (U) Quigley Normal [facility] Comment on above: Performed By: #### P OCGLUC #### [facility] [address] [address] [address] Yash Mckeon Comment Comment Normal [facility] Comment on above: Result Comment: Lolly talline substances normally associated with human calculi were not identified. Specimen is consistent with organic material. Insufficient sample to perform additional, confirmatory, or reference testing. Performed By: #### P OCGLUC #### [facility] [address] [address] [address] Yash Mckeon Comment Normal [facility] Comment on above: Performed By: #### P OCGLUC #### [facility] [address] [place] [address] Dr. Yash Mckeon Comment: Comment Normal [facility] Comment on above: Result Comment: Diego gage questions regarding Calculi Analysis contact [employer] at: [phone]. Performed By: #### P OCGLUC #### [facility] [address] [address] [address] Yash Mckeon Composition Comment Normal [facility] Comment on above: Result Comment: Plea se see comment Performed By: #### P OCGLUC #### [facility] [address] [place] [address] Dr. Yash Mckeon Cystine [facility] Comment on above: Performed By: #### P OCGLUC #### [facility] [address] [address] [address] Yash Mckeon Disclaimer: Comment [facility] Comment on above: Result Comment: This test was developed and its performance characteristics determined by [facility]. It has not been cleared or approved by the Food and Drug Administration. Performed By: #### P OCGLUC #### [facility] [address] [address] [address] Yash Mckeon Dried Blood [facility] Comment on above: Performed By: #### P OCGLUC #### [facility] [address] [address] [address] Yash Mckeon Drug or Metabolite Normal [facility] Comment on above: Performed By: #### P OCGLUC #### [facility] [address] [address] [address] Yash Mckeon [facility] Comment on above: Performed By: #### P OCGLUC #### [facility] [address] [address] [address] Yash Mckeon Mg NH4 PO4 (Struvite) [facility] Comment on above: Performed By: #### P OCGLUC #### [facility] [address] [address] [address] Yash Mckeon MgHPO4 (Newberyite) [facility] Comment on above: Performed By: #### P OCGLUC #### [facility] [address] [address] [address] Yash Mckeon Other component(s) Normal [facility] Comment on above: Performed By: #### P OCGLUC #### [facility] [address] [address] [address] Yash Mckeon PDF . [facility] Comment on above: Performed By: #### P OCGLUC #### [facility] [address] [address] [address] Yash Mckeon Photo TNP [facility] Comment on above: Result Comment: Test not performed No photo available Performed By: #### P OCGLUC #### [facility] [address] [address] [address] Yash Mckeon Please note: Comment [facility] Comment on above: Result Comment: Calc terry report will follow via computer, mail or trampoline team coach delivery. Performed By: #### P OCGLUC #### [facility] [address] [address] [address] Yash Mckeon Size <1 [facility] Comment on above: Result Comment: Too small to measure. Performed By: #### P OCGLUC #### [facility] [address] [address] [address] Yash Mckeon Sodium Acid Urate [facility] Comment on above: Performed By: #### P OCGLUC #### [facility] [address] [address] [address] Yash Mckeon Source Comment [facility] Comment on above: Result Comment: Not provided Performed By: #### P OCGLUC #### [facility] [address] [address] [address] Yash Mckeon Triamterene [facility] Comment on above: Performed By: #### P OCGLUC #### [facility] [address] [place] [address] Dr. Yash Mckeon Uric Acid [facility] Comment on above: Performed By: #### P OCGLUC #### [facility] [address] [place] [address] Dr. Yash Mckeon Uric Acid Dihydrate Normal [facility] Comment on above: Performed By: #### P OCGLUC #### [facility] [address] [place] [address] Dr. Yash Mckeon Weight <1 [facility] Comment on above: Result Comment: Too small to weigh Performed By: #### P OCGLUC #### [facility] [address] [place] [address] Dr. Yash Mckeon Xanthine [facility] Comment on above: Performed By: #### P OCGLUC #### [facility] [address] [place] [address] Dr. Yash Mckeon CBC AUTO DIFFon 04-04-2022 BASO # 0.1 103/ul Normal 0.0-0.1 [facility] Comment on above: Performed By: #### C BC #### [facility] [address] [place] [address] Dr. Yash Mckeon Basophils/100 WBC (Bld) 0.9 % Normal 0.2-2.0 [facility] Comment on above: Performed By: #### C BC #### [facility] [address] [place] [address] Dr. Yash Mckeon EO # 0.4 103/ul Normal 0.0-0.7 [facility] Comment on above: Performed By: #### C BC #### [facility] [address] [place] [address] Dr. Yash Mckeon Eosinophils/100 WBC (Bld) 3.3 % Normal 0.9-7.0 [facility] Comment on above: Performed By: #### C BC #### [facility] [address] [place] [address] Dr. Yash Mckeon Erythrocyte distribution width (RBC) [Ratio] 13.8 % Normal 11.0-15.0 [facility] Comment on above: Performed By: #### C BC #### [facility] [address] [place] [address] Dr. Yash Mckeon Hematocrit (Bld) [Volume fraction] 48.7 % Normal 42.0-54.0 [facility] Comment on above: Performed By: #### C BC #### [facility] [address] [place] [address] Dr. Yash Mckeon Hemoglobin (Bld) [Mass/Vol] 16.1 g/dL Normal 14.0-18.0 [facility] Comment on above: Performed By: #### C BC #### [facility] [address] [place] [address] Dr. Yash Mckeon IG # 0.06 10e3/ul Critically high 0.00-0.03 [facility] Comment on above: Performed By: #### C BC #### [facility] [address] [place] [address] Dr. Yash Mckeon IG % 0.5 % Normal 0.0-0.5 [facility] Comment on above: Performed By: #### C BC #### [facility] [address] [place] [address] Dr. Yash Mckeon LYMPH # 4.1 103/ul Critically high 1.2-3.8 [facility] Comment on above: Performed By: #### C BC #### [facility] [address] [place] [address] Dr. Yash Mckeon Lymphocytes/100 WBC (Bld) 33.3 % Normal 20.5-60.0 [facility] Comment on above: Performed By: #### C BC #### [facility] [address] [place] [address] Dr. Yash Mckeon MANUAL DIFF REQ NO Normal [facility] Comment on above: Performed By: #### C BC #### [facility] [address] [place] [address] Dr. Yash Mckeon MCH (RBC) [Entitic mass] 29.0 pg Normal 25.9-34.0 [facility] Comment on above: Performed By: #### C BC #### [facility] [address] [place] [address] Dr. Yash Mckeon MCHC (RBC) [Mass/Vol] 33.1 g/dL Normal 29.9-35.2 [facility] Comment on above: Performed By: #### C BC #### [facility] [address] [place] [address] Dr. Yash Mckeon MCV (RBC) [Entitic vol] 87.6 fL Normal 80.0-94.0 [facility] Comment on above: Performed By: #### C BC #### [facility] [address] [place] [address] Dr. Yash Mckeon MONO # 1.0 103/ul Critically high 0.3-0.8 [facility] Comment on above: Performed By: #### C BC #### [facility] [address] [place] [address] Dr. Yash Mckeon Monocytes/100 WBC (Bld) 8.2 % Normal 1.7-12.0 [facility] Comment on above: Performed By: #### C BC #### [facility] [address] [place] [address] Dr. Yash Mckeon NEUT # 6.6 103/ul Critically high 1.4-6.5 [facility] Comment on above: Performed By: #### C BC #### [facility] [address] [place] [address] Dr. Yash Mckeon Neutrophils/100 WBC (Bld) 53.8 % Normal 43.0-75.0 [facility] Comment on above: Performed By: #### C BC #### [facility] [address] [place], [place] [address] Dr. Yash Mckeon Platelet mean volume (Bld) [Entitic vol] 10.5 fL Normal 9.5-13.5 [facility] Comment on above: Performed By: #### C BC #### [facility] [address] [address] [address] Yash Mckeon PLT 260 103/ul Normal 150-450 [facility] Comment on above: Performed By: #### C BC #### [facility] [address] [address] [address] Yash Mckeon RBC 5.56 106/ul Normal 4.70-6.10 [facility] Comment on above: Performed By: #### C BC #### [facility] [address] [id number] Yash Mckeon WBC 12.2 103/ul Critically high 4.0-11.0 [facility] Comment on above: Performed By: #### C BC #### [facility] [address] [place] [address] ABD/PELVIS WO CONon [...] 2022-04-04 08:43 Normal [facility] CULTURE URINEon 04-04-2022 CULTURE URINE Culture Observations : LIGHT GROWTH OF MIXED SKIN BRIANNA. NO POTENTIAL PATHOGENS SEEN. Normal [facility] Comment on above: Performed By: #### P OCGLUC #### [facility] [address] [place] [address] Dr. Yash Mckeon ER URINE PROFILEon 2 Bilirubin Ql (U) Negative Normal NEGATIVE [facility] Comment on above: Performed By: #### Vincenzo KELLEY UMICRO #### [facility] [address] [place] [address] Dr. Yash Mckeon Clarity (U) SL CLOUDY Abnormal CLEAR [facility] Comment on above: Performed By: #### E RUR UMICRO #### [facility] [address] [place] [address] Dr. Yash Mckeon Color (U) BROWN Abnormal YELLOW [facility] Comment on above: Performed By: #### E RUR UMICRO #### [facility] [address] [place] [address] Dr. Yash DUBOSE A micrscopic examination will be performed if indicated. Normal [facility] Comment on above: Performed By: #### E RUR UMICRO #### [facility] [address] [place] [address] Dr. Yash Mckeon Glucose Ql (U) 100 mg/dl Abnormal NEGATIVE [facility] Comment on above: Performed By: #### SUNIL STEPHENSRO #### [facility] [address] [place] [address] Dr. Yash Mckeon Hemoglobin Ql (U) LARGE Abnormal NEGATIVE [facility] Comment on above: Performed By: #### Vincenzo KELLEY UMICRO #### [facility] [address] [place] [address] Dr. Yash Mckeon Ketones Ql (U) TRACE Abnormal NEGATIVE [facility] Comment on above: Performed By: #### Vincenzo KELLEY UMICRO #### [facility] [address] [place] [address] Dr. Yash Mckeon LEUKOCYTES Negative Normal NEGATIVE [facility] Comment on above: Performed By: #### SUNIL STEPHENSRO #### [facility] [address] [place] [address] Dr. Yash Mckeon Nitrite Ql (U) Positive Abnormal NEGATIVE [facility] Comment on above: Performed By: #### SUNIL STEPHENSRO #### [facility] [address] [place] [address] Dr. Yash Mckoen pH (U) 5.0 [pH] Normal 5-9 [facility] Comment on above: Performed By: #### SUNIL STEPHENSRO #### [facility] [address] [place] [address] Dr. Yash Mckeon Protein (U) [Mass/Vol] 100 mg/dL Abnormal NEGATIVE/ TRACE [facility] Comment on above: Performed By: #### SUNIL STEPHENSRO #### [facility] [address] [place] [address] Dr. Yash Mckeon SPEC GRAVITY >=1.030 Abnormal 1.005-<=1.02 5 [facility] Comment on above: Performed By: #### SUNIL STEPHENSRO #### [facility] [address] [place] [address] Dr. Yash Mckeon UR MICRO IND INDICATED Normal [facility] Comment on above: Performed By: #### SUNIL STEPHENSRO #### [facility] [address] [place] [address] Dr. Yash Mckeon Urobilinogen Qn (U) 1.0 {Nathaniel'U}/dL Normal 0.2 - 1. 0 [facility] Comment on above: Performed By: #### E KALEIGH KELLEY #### [facility] [address] [address] [address] Yash Mckeon PROF CHEM 8 (BAS METB)on Anion gap [Moles/Vol] 16.0 mmol/L Normal [facility] Comment on above: Performed By: #### B MP #### [facility] [address] [address] [address] Yash Mckeon Calcium [Mass/Vol] 8.5 mg/dL Normal 8.5-10.1 [facility] Comment on above: Performed By: #### B MP #### [facility] [address] [place] [address] Dr. Yash Mckeon Chloride [Moles/Vol] 102 mmol/L Normal 98-107 [facility] Comment on above: Performed By: #### B MP #### [facility] [address] [address] [address] Yash Mckeon CO2 [Moles/Vol] 23.6 mmol/L Normal 21.0-32.0 [facility] Comment on above: Performed By: #### B MP #### [facility] [address] [place] [address] Dr. Yash Mckeon Creatinine [Mass/Vol] 1.17 mg/dL Normal 0.70-1.30 [facility] Comment on above: Performed By: #### B MP #### [facility] [address] [address] [address] Yash Mckeon EGFR-AF [place] ISLANDER >60 Normal >=60 [facility] Comment on above: Performed By: #### B MP #### [facility] [address] [place] [address] Dr. Yash Mckeon EGFR-NON AF [place]ER >60 Normal >=60 [facility] Comment on above: Performed By: #### B MP #### [facility] [address] [address] [address] Yash Mckeon Glucose [Mass/Vol] 234 mg/dL Critically high 74-106 [facility] Comment on above: Performed By: #### B MP #### [facility] [address] [place] [address] Dr. Yash Mckeon Potassium [Moles/Vol] 3.6 mmol/L Normal 3.5-5.1 [facility] Comment on above: Performed By: #### B MP #### [facility] [address] [place] [address] Dr. Yash Mckeon Sodium [Moles/Vol] 138 mmol/L Normal 136-145 [facility] Comment on above: Performed By: #### B MP #### [facility] [address] [place] [address] Dr. Yash Mckeon Urea nitrogen [Mass/Vol] 8.0 mg/dL Normal 7.0-18.0 [facility] Comment on above: Performed By: #### B MP #### [facility] [address] [place] [address] Dr. Yash Mckeon Urea nitrogen/Creatinine [Mass ratio] 6.8 mg/mg Normal [facility] Comment on above: Performed By: #### B MP #### [facility] [address] [place] [address] Dr. Yash Mckeon URINE MICROSCOPIC ONLYon BACTERIA TRACE Abnormal NONE SEEN [facility] Comment on above: Performed By: #### SUNIL STEPHENSRO #### [facility] [address] [place] [address] Dr. Yash Mckeon Bacteria identified Cx Nom (U) INDICATED Normal [facility] Comment on above: Performed By: #### SUNIL STEPHENSRO #### [facility] [address] [place] [address] Dr. Yash Mckeon CAST NONE SEEN Normal NONE SEEN [facility] Comment on above: Performed By: #### SUNIL STEPHENSRO #### [facility] [address] [place] [address] Dr. Yash Mckeon Crystals LM Nom (Urine sed) NONE SEEN Normal NONE SEEN The [facility] Comment on above: Performed By: #### E RUR, UMICRO #### [facility] [address] [place] [address] Dr. Yash Mckeon Epithelial cells LM Ql (Urine sed) RARE Normal NONE SEEN /RARE [facility] Comment on above: Performed By: #### E RUR, UMICRO #### [facility] [address] [place] [address] Dr. Yash Mckeon MUCOUS NONE SEEN Normal NONE SEEN The [facility] Comment on above: Performed By: #### E ALLIE, UMICRO #### [facility] [address] [place] [address] Dr. Yash Mckeon RBC 20-50 Abnormal 0-2 [facility] Comment on above: Performed By: #### Vincenzo KELLEY, UMICRO #### [facility] [address] [place] [address] Dr. Yash Mckeon WBC 0-2 Abnormal NONE SEEN The [facility] Comment on above: Performed By: #### Vincenzo KELLEY ICRO #### [facility] [address] [place] [address] Dr. Yash Mckeon CBC AUTO DIFFon 02-17-2022 BASO # 0.1 103/ul Normal 0.0-0.1 [facility] Comment on above: Performed By: #### C BC #### [facility] [address] [place] [address] Dr. Yash Mckeon Basophils/100 WBC (Bld) 0.7 % Normal 0.2-2.0 [facility] Comment on above: Performed By: #### C BC #### [facility] [address] [place] [address] Dr. Yash Mckeon EO # 0.2 103/ul Normal 0.0-0.7 [facility] Comment on above: Performed By: #### C BC #### [facility] [address] [place] [address] Dr. Yash Mckeon Eosinophils/100 WBC (Bld) 1.6 % Normal 0.9-7.0 [facility] Comment on above: Performed By: #### C BC #### [facility] [address] [place] [address] Dr. Yash Mckeon Erythrocyte distribution width (RBC) [Ratio] 14.3 % Normal 11.0-15.0 [facility] Comment on above: Performed By: #### C BC #### [facility] [address] [address] [address] Yash Mckeon Hematocrit (Bld) [Volume fraction] 47.1 % Normal 42.0-54.0 [facility] Comment on above: Performed By: #### C BC #### [facility] [address] [place] [address] Dr. Yash Mckeon Hemoglobin (Bld) [Mass/Vol] 15.7 g/dL Normal 14.0-18.0 [facility] Comment on above: Performed By: #### C BC #### [facility] [address] [place] [address] Dr. Yash Mckeon IG # 0.05 10e3/ul Critically high 0.00-0.03 [facility] Comment on above: Performed By: #### C BC #### [facility] [address] [place] [address] Dr. Yash Mckeon IG % 0.5 % Normal 0.0-0.5 [facility] Comment on above: Performed By: #### C BC #### [facility] [address] [place] [address] Dr. Yash Mckeon LYMPH # 2.9 103/ul Normal 1.2-3.8 [facility] Comment on above: Performed By: #### C BC #### [facility] [address] [place] [address] Dr. Yash Mckeon Lymphocytes/100 WBC (Bld) 29.8 % Normal 20.5-60.0 [facility] Comment on above: Performed By: #### C BC #### [facility] [address] [place] [address] Dr. Yash Mckeon MANUAL DIFF REQ NO Normal [facility] Comment on above: Performed By: #### C BC #### [facility] [address] [address] [address] Yash Mckeon MCH (RBC) [Entitic mass] 29.2 pg Normal 25.9-34.0 [facility] Comment on above: Performed By: #### C BC #### [facility] [address] [place] [address] Dr. Yash Mckeon MCHC (RBC) [Mass/Vol] 33.3 g/dL Normal 29.9-35.2 [facility] Comment on above: Performed By: #### C BC #### [facility] [address] [place] [address] Dr. Yash Mckeon MCV (RBC) [Entitic vol] 87.7 fL Normal 80.0-94.0 [facility] Comment on above: Performed By: #### C BC #### [facility] [address] [place] [address] Dr. Yash Mckeon MONO # 0.7 103/ul Normal 0.3-0.8 [facility] Comment on above: Performed By: #### C BC #### [facility] [address] [place] [address] Dr. Yash Mckeon Monocytes/100 WBC (Bld) 6.8 % Normal 1.7-12.0 [facility] Comment on above: Performed By: #### C BC #### [facility] [address] [place] [address] Dr. Yash Mckeon NEUT # 5.9 103/ul Normal 1.4-6.5 [facility] Comment on above: Performed By: #### C BC #### [facility] [address] [place] [address] Dr. Yash Mckeon Neutrophils/100 WBC (Bld) 60.6 % Normal 43.0-75.0 [facility] Comment on above: Performed By: #### C BC #### [facility] [address] [place] [address] Dr. Yash Mckeon Platelet mean volume (Bld) [Entitic vol] 10.3 fL Normal 9.5-13.5 [facility] Comment on above: Performed By: #### C BC #### [facility] [address] [address] [address] Yash Mckeon PLT 240 103/ul Normal 150-450 [facility] Comment on above: Performed By: #### C BC #### [facility] [address] [place] [address] Dr. Yash Mckeon RBC 5.37 106/ul Normal 4.70-6.10 [facility] Comment on above: Performed By: #### C BC #### [facility] [address] [place] [address] Dr. Yash Mckeon WBC 9.8 103/ul Normal 4.0-11.0 [facility] Comment on above: Performed By: #### C BC #### [facility] [address] [place] [address] Dr. Yash Mckeon Covid-19 PCR (CVDTBH)on 01-23 SARS-CoV-2 (COVID-19) RNA TALIB+probe Ql (Unsp spec) Not detected Normal NOT DETECTED [facility] Comment on above: Result Comment: When [...] for this test is supported by the [place] of Health and Human Service's declaration that [...] used). Performed By: #### C VDTBH #### [facility] [address] [place] [address] Dr. Yash Mckeon D-DIMERon 02-17-2022 D-DIMER <0.19 Normal <=0.59 [facility] Comment on above: Performed By: #### D DIM #### [facility] [address] [place] [address] Dr. Yash Mckeon D-DIMER COMMENTS SEE BELOW Normal [facility] Comment on above: Result Comment: Incr eases [...] hospitalization. Performed By: #### D DIM #### [facility] [address] [place] [address] Dr. Yash Mckeon PROF CHEM 8 (BAS METB)on Anion gap [Moles/Vol] 13.0 mmol/L Normal [facility] Comment on above: Performed By: #### P OCGLUC #### [facility] [address] [place] [address] Dr. Yash Mckeon Calcium [Mass/Vol] 9.2 mg/dL Normal 8.5-10.1 [facility] Comment on above: Performed By: #### P OCGLUC #### [facility] [address] [place] [address] Dr. Yash Mckeon Chloride [Moles/Vol] 102 mmol/L Normal 98-107 [facility] [facility] Comment on above: Performed By: #### P OCGLUC #### [facility] [address] [place] [address] Dr. Yash Mckeon CO2 [Moles/Vol] 28.2 mmol/L Normal 21.0-32.0 [facility] Comment on above: Performed By: #### P OCGLUC #### [facility] [address] [place] [address] Dr. Yash Mckoen Creatinine [Mass/Vol] 1.10 mg/dL Normal 0.70-1.30 [facility] Comment on above: Performed By: #### P OCGLUC #### [facility] [address] [address] [address] Yash Mckeon EGFR-AF [place]ER >60 Normal >=60 [facility] Comment on above: Performed By: #### P OCGLUC #### [facility] [address] [address] [address] Yash Mckeon EGFR-NON AF [place]ER >60 Normal >=60 [facility] Comment on above: Performed By: #### P OCGLUC #### [facility] [address] [address] [address] Yash Mckeon Glucose [Mass/Vol] 174 mg/dL Critically high 74-106 [facility] Comment on above: Performed By: #### P OCGLUC #### [facility] [address] [address] [address] Yash Mckeon Potassium [Moles/Vol] 4.2 mmol/L Normal 3.5-5.1 [facility] Comment on above: Performed By: #### P OCGLUC #### [facility] [address] [address] [address] Yash Mckeon Sodium [Moles/Vol] 139 mmol/L Normal 136-145 [facility] Comment on above: Performed By: #### P OCGLUC #### [facility] [address] [address] [address] Yash Mckeon Urea nitrogen [Mass/Vol] 12.0 mg/dL Normal 7.0-18.0 [facility] Comment on above: Performed By: #### P OCGLUC #### [facility] [address] [address] [address] Yash Mckeon Urea nitrogen/Creatinine [Mass ratio] 10.9 mg/mg Normal [facility] Comment on above: Performed By: #### P OCGLUC #### [facility] [address] [place] [address] Dr. Yash Mckeon TROPONIN, HIGH SENSITIVITYon 02-17-2022 HSTROP <4.0 Normal 4.0-76.1 [facility] Comment on above: Result Comment: CUT- OFF POINTS HAVE BEEN ESTABLISHED BASED ON THE FOURTH UNIVERSAL DEFINITIONS OF MYOCARDIAL INFARCTION. THE UPPER REFERENCE LIMIT (URL) OF TROPONIN, DEFINED THE 99TH PERCENTILE OF cTnI DISTRIBUTION IN A REFERENCE POPULATION, HAS BEEN CONFIRMED THE DECISION THRESHOLD FOR [place] DIAGNOSIS. Performed By: #### P OCGLUC #### [facility] [address] [place], [place] [address] Dr. Yash Mckeon XR RIBS RT PA [...] JUANITA DYKES Date: 2022-02-17 15:26 Normal [facility] BASIC METABOLIC PANELon 08-25 Anion gap [Moles/Vol] 17 mmol/L Normal 10 - 20 [facility] Comment on above: Performed By: #### B MP #### [address] [address] Calcium [Mass/Vol] 8.7 mg/dL Normal 8.6 - 10.3 [facility] Comment on above: Performed By: #### B MP #### [address] [address] Chloride [Moles/Vol] 103 mmol/L Normal 98 - 107 [facility] Comment on above: Performed By: #### B MP #### [address] [place] [address] Creatinine [Mass/Vol] 0.88 mg/dL Normal 0.50 - 1.30 [facility] Comment on above: Performed By: #### B MP #### [address] [address] GFR- AM. >60 Normal >60 [facility] Comment on above: Result Comment: CALC ULATIONS OF ESTIMATED GFR ARE PERFORMED USING THE MDRD STUDY EQUATION FOR THE IDMS-TRACEABLE CREATININE METHODS. CLIN CHEM 2007;53:766-72 Performed By: #### B MP #### [address] [address] GFR-NON AM. >60 Normal >60 [facility] Comment on above: Performed By: #### B MP #### [address] [place] [address] Glucose [Mass/Vol] 252 mg/dL High 74 - 99 [facility] Comment on above: Performed By: #### B MP #### [address] [address] HCO3 (Bld) [Moles/Vol] 19 mmol/L Low 21 - 32 [facility] Comment on above: Performed By: #### B MP #### [address] [address] Potassium [Moles/Vol] 4.1 mmol/L Normal 3.5 - 5.3 [facility] Comment on above: Performed By: #### B MP #### [address] [address] Sodium [Moles/Vol] 135 mmol/L Low 136 - 145 [facility] Comment on above: Performed By: #### B MP #### [address] [address] Urea nitrogen [Mass/Vol] 13 mg/dL Normal 6 - 23 [facility] Comment on above: Performed By: #### B MP #### [address] [address] GLUCOSE-POCTon 09-05-2020 Glucose [Mass/Vol] 276 mg/dL High 74 - 99 [facility] Comment on above: Performed By: #### G LATA #### [address] [address] History and Physical - Surgi kellie Update [...] Last Updated: 05-Sep-2020 11:26 by Nicky Swartz) [facility] Operative Reports - [place] 09-05-2020 Operative Reports - [place] PREOPERATIVE INDICATION: Phimosis. PREOPERATIVE DIAGNOSIS: Phimosis. POSTOPERATIVE [...] NICKY SWARTZ MD EST EST DICTATION NUMBER: [id number] INTERNAL JOB NUMBER: [id number] Electronic Signatures: Nicky Swartz) (Signed on 15-Sep-2020 07:34) Authored Unsigned, Draft (SYS GENERATED) (Entered on 06-Sep-2020 07:26) Entered Last Updated: 15-Sep-2020 07:34 by Nicky Swartz) Normal [facility] Order Reconciliationon 09-05 Order Reconciliation Page [...] be shared with your follow-up providers (doctor, computer artist, physical therapist, etc.). Follow Up with in [...] be shared with your follow-up providers (doctor, computer artist, physical therapist, etc.). Follow Up with in [...] but has not started this yet Normal [facility] Histologyon 09-05-2020 [place] [facility] Name BRIAN TSE Pathologist: CHRIS MACEDO [...] 2.5 x 0.5 x 0.5 cm respectively. Premium Auditor sections are submitted in 1 cassette. TNB tnb/09/05/2020 [facility] Department of Pathology [address] [place] [address] Normal [facility] Comment on above: Performed By: #### P #### [facility] [address] [address] [facility] [address] Preop Checkliston 09-05-2020 Preop Checklist Preop Checklist: Preop Checklist: Arrival [id number] Arrival Time09:42 Procedure TypeCIRCUMCISION Temperature C36.2 degrees C Temperature F97.1 degrees F Heart Rate70 beats per minute Respiratory Rate18 breath per minute Blood Pressure Yjatztwi315 mm/Hg Blood Pressure Wiuhcuzus76 mm/Hg ID Band Onyes Allergy Bandno known [...] 09:48 by Zainab Laguna (SUKHJINDER) Normal [facility] URINE CULTURE,BACTERIALon URINE CULTURE,BACTERIAL PATIENT: BRIAN TSE LOCATION: [facility]#: [id number] : 82 AGE: SEX: M ORDERED BY: NICKY SWARTZ SOURCE: URINE COLLECTED: 09/05/20 08:16 ANTIBIOTICS AT REINA.: RECEIVED : 09/05/20 11:32 SITE: R E S U L T S URINE CULTURE,BACTERIAL FINAL 09/06/20 07:51 NO SIGNIFICANT GROWTH. Normal [facility] Comment on above: Performed By: #### [facility] #### [facility] [address] [place] [address] CORONAVIRUS 2019, SCREEN ASY MPTOMATICon 09-03-2020 CORONAVIRUS 2019,PCR NOT DETECTED Normal Not Detected [facility] Comment on above: Result Comment: . This [...] patient management decisions. Fact sheet for providers: https://www.fda.gov/media/271870/download Fact sheet for patients: https://www.fda.gov/media/529693/download This test has received FDA Emergency Use Authorization (EUA) and has been verified by [facility] ([facility]). This test is only authorized for the duration of time that circumstances exist to justify the authorization of the emergency use of in vitro diagnostic tests for the detection of SARS-CoV-2 virus and/or diagnosis of COVID-19 infection under section 564(b)(1) of the Act, 21 U.S.C. 360bbb-3(b)(1), unless the authorization is terminated or revoked sooner. [facility] is certified under CLIA-88 as qualified to perform high complexity testing. Testing is performed in the [facility] laboratories located at [address] [place] [address]. Performed By: #### C OVSC #### [place] [address] Lab Specimen Source Nasal, Nasopharyngeal Normal [facility] Comment on above: Performed By: #### C OVSC #### [place] [address] Covid 19 Resultson 1 Covid 19 Results [...] You may also be contacted by the [facility] to see if any of your [...] or Naproxen (Aleve) can also be used. Thyn-cdh-gjeppdi cough and cold medicines can be used according to the instructions on the package. Some zboc-dym-utxmmgj medicines also contain acetaminophen. Make sure you [...] water are not available, use alcohol-based hand quality liaison. Avoid touching your eyes, nose, and mouth [...] a total of 10 days. Additional resources: [facility] COVID Hotline at 1-459-9XTVRUS ( ). COVID-19 Careline at (availabl e 24 hours per day, seven days a week if you or a loved one is experiencing anxiety related to the coronavirus pandemic). Clinical research opportunities: is conducting research studies to develop better testing and treatments for COVID. Do you want any information on how to participate Call [phone]. Websites: hospitals.org or www.CDC.gov Follow My Health / My UHCare (for other test results): Revised 06/10/2020 Electronic Signatures: Satinder Rajan (ADMIN) (Signature pending) Authored Last Updated: 03-Sep-2020 21:24 by Satinder Rajan (ADMIN) Normal [facility] CNOVon 10-14-2017 CNOV Office Visit (LOORRM) BRIAN PEÑA ([id number]) 1980 MDate Time Provider Department10/14/17 11:00 AM [...] CONSULT TO PHYSICAL THERAPY [9032] Order #: [id number]: 1Prescriptions as of 10/14/2017 Sig: ATORVASTATIN 10 [...] Historical Med Sig: Disc: Erroneous entryEncounter Number: [id number] Status:Closed by NAHOMY SHARP PA-C on 10/14/17 [facility] PROGRESSon 10-14-2017 PROGRESS HNO ID: [id number]: Nahomy (Fatmata SharpService: (none)Author Type: Physician AssistantType: [...] fileFAMILY HISTORY:No family history on file. Normal [facility] PROGRESS HNO ID: [id number]: Nahomy Sharp (Pa)Service: Orthopaedic SurgeryAuthor Type: Physician AssistantType: Progress NotesFiled: 10/20/2017 3:42 PMNote Text: [facility] [address] [place], [place] [address] CLINIC NOTE Department of Orthopaedics - PAM KeitaAME: TSEBRIAN NO.: [id number] OF SERVICE: 10/14/2017CHIEF COMPLAINT: Right shoulder pain.HISTORY [...] doeshelp some temporarily. [facility] followed by an MRI. He is here todayfor further evaluation and discussion of treatment. He is amkv-zxehkjc-rzadjhmiu diabetic who was under poor control several [...] lifting anything heavy. 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 They show some AC joint arthritis. Goodacromiohumeral distance. No significant glenohumeral arthritis. Noevidence of fracture. No other osseous abnormalities.MRI: MRI dated 10/01/2017 from [facility] shows a mildrotator cuff [...] for physical therapy, which [facility] [place] [facility]. [facility] Discussed possibly a cortisone injection at that time ifnecessary. Declines today as he does not like needles.Dictated By: Pepe Zurita Dictated: 10/19/2017Date Typed: daria 10/19/2017JOB# [id number] Normal [facility] SR-MRI Shoulder w/o Contrast Right IMPORTon 10-01-2017 SR-MRI Shoulder w/o Contrast Right IMPORT Images were obtained outside of [facility] [id number] Normal [facility] SR-XR Shoulder Complete Righ t IMPORTon 09-13-2017 SR-XR Shoulder Complete Right IMPORT Images were obtained outside of [facility] [id number] Normal [facility] Vital Signs Date Time Vital Sign Value Performing Clinician Facility 05-07-2024 14:57-0400 Body height 180.3 cm Don Santos DPM FACFAS Work Phone: [facility] 05-07-2024 14:57-0400 Body mass index (BMI) [Ratio] 33.61 kg/m2 Don Santos DPM FACFAS Work Phone: [facility] 05-07-2024 14:57-0400 Body weight 109.32 kg Don Santos DPM FACFAS Work Phone: [facility] 05-07-2024 14:57-0400 Diastolic blood pressure 79 mm[Hg] Don Santos DPM FACFAS Work Phone: [facility] 05-07-2024 14:57-0400 Heart rate 74 /min Don Santos DPM FACFAS Work Phone: [facility] 05-07-2024 14:57-0400 Systolic blood pressure 128 mm[Hg] Don Santos DPM FACFAS Work Phone: [facility] 02-14-2024 16:11-0400 Body temperature 98.78 [degF] [facility] 02-14-2024 16:11-0400 Diastolic blood pressure 86 mm[Hg] [facility] 02-14-2024 16:11-0400 Heart rate 79 /min [facility] 02-14-2024 16:11-0400 Respiratory rate 18 /min [facility] 02-14-2024 16:11-0400 SaO2% (BldA) [Mass fraction] 98 % [facility] 02-14-2024 16:11-0400 Systolic blood pressure 131 mm[Hg] Reddy Thao [facility] 2023 11:48-0400 Body height 176.5 cm Yuko Waite POLITICAL SCIENCE PROFESSOR-LIFE SKILLS TEACHER Work Phone: [facility] [email or web address] [facility] 2023 11:48-0400 Body mass index (BMI) [Ratio] 31.16 kg/m2 Yuko Waite POLITICAL SCIENCE PROFESSOR-LIFE SKILLS TEACHER Work Phone: [facility] [employer] 2023 11:48-0400 Body temperature 98.1 [degF] Yuko Waite POLITICAL SCIENCE PROFESSOR-LIFE SKILLS TEACHER [facility] 2023 11:48-0400 Body weight 97.07 kg Yuko Waite POLITICAL SCIENCE PROFESSOR-LIFE SKILLS TEACHER [facility] 2023 11:48-0400 Diastolic blood pressure 74 mm[Hg] Yuko Waite POLITICAL SCIENCE PROFESSOR-LIFE SKILLS TEACHER Work Phone: [facility] [employer] 2023 11:48-0400 Heart rate 65 /min Yuko Waite POLITICAL SCIENCE PROFESSOR-LIFE SKILLS TEACHER [facility] 2023 11:48-0400 SaO2% (BldA) [Mass fraction] 99 % Yuko Waite POLITICAL SCIENCE PROFESSOR-LIFE SKILLS TEACHER Work Phone: [employer] 2023 11:48-0400 Systolic blood pressure 124 mm[Hg] Yuko Waite POLITICAL SCIENCE PROFESSOR-LIFE SKILLS TEACHER Work Phone: [employer] 01-06-2023 10:25-0400 Body height 177.8 cm Georgia Del Cid Other [employer] Other 01-06-2023 10:25-0400 Body mass index (BMI) [Ratio] 31.1 kg/m2 Georgia Del Cid Other [employer] Other 01-06-2023 10:25-0400 Body temperature 98.7 [degF] Georgia Maria Eugenia Other [employer] Other 01-06-2023 10:25-0400 Body weight 98.34 kg Georgia Martinoley Other [employer] Other 01-06-2023 10:25-0400 Diastolic blood pressure 88 mm[Hg] Georgia Maria Eugenia Other [employer] Other 01-06-2023 10:25-0400 Respiratory rate 18 /min Georgia Maria Eugenia Other [employer] Other 01-06-2023 10:25-0400 SaO2% (BldA) [Mass fraction] 98 % Georgia Maria Eugenia Other [employer] Other 01-06-2023 10:25-0400 Systolic blood pressure 136 mm[Hg] Georgia Maria Eugenia Other [employer] Other 05-20-2022 16:12-0400 Blood Pressure Location Nicky NILL [facility] 05-20-2022 16:12-0400 Body temperature 98.06 [degF] Nicky NILL [facility] 05-20-2022 16:12-0400 Diastolic blood pressure 74 mm[Hg] Nicky NILL [facility] 05-20-2022 16:12-0400 Heart rate 79 /min Nicky NILL [facility] 05-20-2022 16:12-0400 Mean blood pressure 85 mm[Hg] Nicky NILL [facility] 05-20-2022 16:12-0400 Respiratory rate 16 /min Nicky NILL [facility] 05-20-2022 16:12-0400 SaO2% (BldA) [Mass fraction] 96 % Nicky NILL [facility] 05-20-2022 16:12-0400 Systolic blood pressure 106 mm[Hg] Nicky NILL [facility] 05-20-2022 14:41-0400 Blood Pressure Location Nicky NILL [facility] 05-20-2022 14:41-0400 Body temperature 98.06 [degF] Nicky NILL [facility] 05-20-2022 14:41-0400 Diastolic blood pressure 83 mm[Hg] Nicky NILL [facility] 05-20-2022 14:41-0400 Heart rate 70 /min Nicky NILL [facility] 05-20-2022 14:41-0400 Respiratory rate 16 /min Nicky NILL [facility] 05-20-2022 14:41-0400 SaO2% (BldA) [Mass fraction] 99 % Nicky NILL [facility] 05-20-2022 14:41-0400 Systolic blood pressure 135 mm[Hg] Nicky NILL [facility] 05-20-2022 14:38-0400 Body temperature 97.52 [degF] Nicky NILL [facility] 05-20-2022 14:38-0400 Diastolic blood pressure 85 mm[Hg] Nicky NILL [facility] 05-20-2022 14:38-0400 Heart rate 67 /min Nicky NILL [facility] 05-20-2022 14:38-0400 Respiratory rate 14 /min Nicky NILL [facility] 05-20-2022 14:38-0400 SaO2% (BldA) [Mass fraction] 100 % Nicky NILL [facility] 05-20-2022 14:38-0400 Systolic blood pressure 122 mm[Hg] Nicky NILL [facility] 05-20-2022 14:25-0400 Respiratory rate 11 /min Nicky NILL [facility] 05-20-2022 14:15-0400 Respiratory rate 15 /min Nicky NILL [facility] 05-20-2022 13:41-0400 Blood Pressure Location Nicky NILL [facility] 05-20-2022 13:41-0400 Body temperature 97.52 [degF] Nicky NILL [facility] 05-20-2022 13:35-0400 Respiratory rate 14 /min Nicky NILL [facility] 05-20-2022 10:00-0400 Body temperature 98.06 [degF] Nicky NILL [facility] 05-20-2022 10:00-0400 Mean blood pressure 103 mm[Hg] Nicky NILL [facility] 05-20-2022 10:00-0400 Heart rate 66 /min Nicky NILL [facility] 05-13-2022 12:32-0400 Blood Pressure Location Nicky NILL [facility] 05-13-2022 12:32-0400 BP/Pulse Patient Position Nicky NILL [facility] 05-13-2022 12:32-0400 Diastolic blood pressure 86 mm[Hg] Nicky NILL [facility] 05-13-2022 12:32-0400 Heart rate 67 /min Nicky NILL [facility] 05-13-2022 12:32-0400 Mean blood pressure 102 mm[Hg] Nicky NILL [facility] 05-13-2022 12:32-0400 Respiratory rate 18 /min Nicky NILL [facility] 05-13-2022 12:32-0400 Systolic blood pressure 134 mm[Hg] Nicky NILL [facility] 05-13-2022 12:30-0400 Blood Pressure Location Nicky NILL [facility] 05-13-2022 12:30-0400 BP/Pulse Patient Position Nicky NILL [facility] 05-13-2022 12:30-0400 Diastolic blood pressure 83 mm[Hg] Nicky NILL [facility] 05-13-2022 12:30-0400 Heart rate 69 /min Nicky NILL [facility] 05-13-2022 12:30-0400 Mean blood pressure 102 mm[Hg] Nicky NILL [facility] 05-13-2022 12:30-0400 SaO2% (BldA) [Mass fraction] 97 % Nicky NILL [facility] 05-13-2022 12:30-0400 Systolic blood pressure 140 mm[Hg] Nicky NILL [facility] 05-13-2022 12:30-0400 Body temperature 97.7 [degF] Nicky NILL [facility] 04-27-2022 09:05-0400 Blood Pressure Location Nicky NILL [facility] [place] 04-27-2022 09:05-0400 Diastolic blood pressure 95 mm[Hg] Nicky NILL [facility] 04-27-2022 09:05-0400 Heart rate 58 /min Nicky NILL [facility] 04-27-2022 09:05-0400 Respiratory rate 16 /min Nicky NILL [facility] 04-27-2022 09:05-0400 Systolic blood pressure 141 mm[Hg] Nicky AMANDAL [facility] 04-23-2022 11:11-0400 Blood Pressure Location Patrick OWEN [facility] 04-23-2022 11:11-0400 Diastolic blood pressure 87 mm[Hg] Patrick OWEN [facility] 04-23-2022 11:11-0400 Heart rate 75 /min Patrick OWEN [facility] 04-23-2022 11:11-0400 Respiratory rate 16 /min Patrick OWEN [facility] 04-23-2022 11:11-0400 Systolic blood pressure 130 mm[Hg] Patrick OWEN [facility] Encounters Encounter Date Encounter Type [...] Emergency department patient visit Reddy Eloisa Master [facility] Start: 2023 End: 2023 Office outpatient visit 15 minutes [facility] Work Phone: [facility] Comment on above: Encounter for occupa tional physical examination (Primary Dx); Type 2 diabetes mellitus without complication, without long-term current use of insulin (CMS-HCC); Anxiety; Sleep disturbance Start: 04-18-2023 End: 04-18-2023 Patient encounter procedure Patrick OWEN [facility] Start: 01-06-2023 End: 01-06-2023 ambulatory Georgia Del Cid Other [employer] Other Start: 01-06-2023 Office outpatient vi sit 15 minutes Georgia Del Cid [facility] Start: 11-30-2022 End: 11-30-2022 ambulatory Imad Asaad Facility:[facility] Start: 11-04-2022 End: 11-04-2022 ambulatory Imad Asaad Other [employer] Other Start: 11-04-2022 Telephone encounter Imsai Colunga [facility] Start: 10-28-2022 End: 10-28-[address] PATRICK OWEN . Facility:[facility] Start: 10-26-[address] PATRICK DELGADILLO . Facility:[facility] Start: 10-22-2022 End: 10-23-[address] PATRICK OWEN . Facility:[facility] Start: 10-21-2022 End: 10-21-2022 ambulatory Domonique Myers Facility:[facility] Start: 10-21-2022 End: 10-21-2022 ambulatory DO Jude Ruvalcaba III Work Phone: [facility] Work Phone: Start: 10-21-2022 End: 10-21-2022 Patient encounter procedure DO Jude Ruvalcaba III Work Phone: [facility] Work Phone: Start: 06-25-2022 End: 06-25-2022 Patient encounter procedure Nicky R NILL [facility] [place] Start: 06-02-2022 End: 06-02-2022 Patient encounter procedure Nicky Guidry NILL [facility] [place] Start: 05-20-2022 End: 05-20-2022 Admission to same day surgery center Nicky Guidry NILL [facility] Start: 05-13-2022 End: 05-13-2022 Patient encounter procedure Nicky Guidry NILL [facility] Start: 04-27-2022 End: 04-27-2022 Patient encounter procedure Nicky R NILL [facility] [place] Start: 04-23-2022 End: 04-23-[address] PATRICK OWEN . Facility:[facility] Start: 04-23-2022 End: 04-23-2022 Patient encounter procedure Patrick OWEN [facility] [place] Start: 04-04-2022 End: 04-04-2022 ambulatory SALBADOR BOOKER Facility:[facility] Start: 02-17-2022 End: 02-17-2022 ambulatory UMM SILVERMAN . Facility:[facility] Start: 10-14-2017 End: 10-17-2017 Ambulatory NAHOMY (MAZIN) [facility] Procedures Date Procedure Procedure Detail Performing Clinician Start: 07-04-2023 Adult depression scr eening assessment Yuko Waite POLITICAL SCIENCE PROFESSORnooked Work Phone: Start: 10-21-2022 Plain chest X-ray DO Yasmine Ruvalcaba III Work Phone: Start: 09-27-2022 Microalbumin [Mass/v olume] in Urine by Test strip Yuko Waite POLITICAL SCIENCE PROFESSORnooked Work Phone: Start: 05-20-2022 Laparoscopy surg rpr [...] Adult BMI Screening Adult BMI Screen ing [facility] Start: 10-26-2024 Tobacco Screening Tobacco Screening [facility] Start: 07-04-2024 Depression Screening Depression Scre ening [facility] Start: 05-21-2024 End: 05-21-2024 Patient encounter procedure 05/21/2024 3:40 PM EDT Office Visit [facility] [address] [place] [id number] Don Santos, DPM FACFAS [address] [place] [address] [facility] Start: 05-07-2024 End: 05-07-2024 Patient encounter procedure 05/07/2024 2:40 PM EDT Office Visit [facility] POD [address] [place] [address] Don Santos, DPM FACFAS [address] [place] [address] Arrived [facility] POD Comment on above: Arrived Start: 03-25-2024 Influenza vaccination [facility] Start: 01-30-2024 End: 01-30-2024 Patient encounter procedure 01/30/2024 4:15 PM EDT Office Visit [facility] [address] [place] [address] [place] [address] Yuko Waite APRN-CNP [address] [place] [address], [facility] [place] [address] [facility] Start: 12-17-2023 Adult BMI Follow Up Plan Adult BMI Follow Up Plan [facility] Start: 10-31-2023 End: 10-31-2023 Patient encounter procedure 10/31/2023 4:00 PM EDT Office Visit [facility] [address] [place] [address] [place] [address] Yuko Waite APRN-CNP [address] [place] [address], [place] [address] [facility] Start: 09-28-2023 Urine screening for protein Urine Microalbumin [facility] Start: 09-09-2022 Diabetic foot examination Diabetic Foot Exam [facility] Start: 2000 DTaP,Tdap and Td Vaccines (1 - Tdap) DTaP,Tdap and Td Vaccines (1 - Tdap) [facility] Start: 1981 Glaucoma screening Diabetic Op hthalmology Exam [facility] Start: 1981 Tobacco Counseling Tobacco Counselin g [facility] Immunizations Immunization Date Immunization Notes Care Provider Fa cility NEGATED: Highlighted row has not occurred!09-09-2021 influenza, injectable, quadrivalent, preservative free Yuko Waite POLITICAL SCIENCE PROFESSOR-LIFE SKILLS TEACHER Work Phone: [facility] Comment on above: Deferred: Patient de cision Payers Date Payer Category Payer Private Health Insurance [facility] MEDICAID [id number] 2022 Self-pay [id number] 2022 Medicaid [employer] HMO [id number] 2022-Present [phone] [address] [place] [address] [id number] 1981 Unknown [id number] [id number]. 593 1981 Unknown [id number] 2.16.840.1.319721.3.579.2. 593 1981 Unknown [id number] 2.16.840.1.735080.3.579.2. 593 1981 Unknown [id number] 2.16.840.1.910484.3.579.2. 593 1981 Unknown [id number] 2.16.840.1.267623.3.579.2. 593 1981 Unknown [id number] 2.16.840.1.396707.3.579.2. 593 1981 Unknown [id number] 2.16.840.1.117971.3.579.2. 593 1981 Unknown [id number] 2.16.840.1.614776.3.579.2. 1259 1981 Unknown [id number] 2.16.840.1.807726.3.579.2. 727 1958 Medicaid [id number] 1958 Medicaid [id number] [id number] Unknown [id number] 2.16.840.1.695559.3.579.2. 531 Unknown [id number] 2.16.840.1.670393.3.579.2. 531 Social History Date Type Detail Facility Start: 01-31-2020 End: 04-23-2022 Tobacco smoking status Smoker (finding) [facility] Start: 2023 End: 05-07-2024 Sex Assigned At Male [facility] Start: 04-27-2022 Tobacco smoking status Heavy t obacco smoker (finding) [facility] [place] Comment on above: Smoker Tobacco [facility] on [facility]: Sm[facility] Start: 1980 Sex Assigned At Male [facility] Start: 09-27-2022 End: 05-07-2024 Tobacco smoking status OKIS Smokes tobacco daily [facility] History of tobacco use Cigarette Smoker [facility] Start: 09-27-2022 End: 05-07-2024 Cigarettes smoked current (pack per day) - Reported 1 [email or web address] Start: 09-27-2022 End: 05-07-2024 Tobacco use and exposure Smokeless tobacco non-user [facility] Start: 2023 Alcohol intake Ex-drinker (finding) [facility] Start: 1980 Sex Assigned At Not on file [facility] Start: 02-14-2024 Tobacco smoking status Light t obacco smoker (finding) [facility] Tobacco smoking stat us NHIS Tobacco smoking consumption unknown [facility] Start: 05-07-2024 Alcoholic beverage intake Current drinker of alcohol (finding) [facility] Medical Equipment Procedure Code Equipment Code Equipment Origin al Text Equipment Identifier Dates INGUINAL HERNIA REPAIR ADULT Nicky CHRISTINA MD 05/20/22 Non Biological Abdomen {[id number] FDA Start: 05-20-2022 Monitor blood padilla gar daily [id number] Start: 2023 1 Unit by miscellaneous route in the morning. [id number] Start: 07-05-2023 Monitor blood padilla gar daily [id number] Start: 07-05-2023 End: 2023 Functional Status Date Assessment Result Facility 02-14-2024 Functional Status N/A [facility] 05-13-2022 Functional Status No [facility] 04-27-2022 Functional Status N/A [facility] [place] 04-23-2022 Functional Status N/A [facility] Clinical Notes 04-23-2022 to 05-07-2024 [...] Past Medical History: Diagnosis Date Diabetes mellitus ([facility]) Medications: Current Outpatient Medications: glyBURIDE (Diabeta) 5 [...] < 3 seconds Digits 1-5 bilateral NEURO: [place] Alisa 5.07 monofilament was intact B/L. Vibratory sensation was intact B/L Musculoskeletal: Muscle strength was +5 over 5 all intrinsic and extrinsic muscles tested. ASSESSMENT 1. Abscess of toe, right 2. Contusion of right foot, initial encounter 3. Right foot pain 4. Type II diabetes mellitus with neurological manifestations ([facility]) PLAN I educated the patient the contusion [...] ulcerations. ALEXIS Sawyer documented in this encounter [place] [address]24 Hospital Discharge instructions Patient Education 02/14/2024 17:04:58 [...] by your health care provider. Follow the metal products fabricator assembler's instructions for use. Tighten and properly adjust [...] Document Reviewed: 05/04/2021 Elsevier Patient Education 2022 [employer] 02/14/2024 17:04:58 Foot Sprain Foot Sprain [...] cast on your foot. General instructions Take sxxp-dso-wkikrhf and prescription medicines only as told by [...] provider. Document Revised: 10/31/2020 Document Reviewed: 10/31/2020 [employer] Patient Education 2022 [employer]. Follow Up Care 02/14/2024 15:59:39 With:SALBADOR BOOKER Address: [address] [place] [address] Business (1) When:02/17/2024 16:55:32 Comments:Return to the emergency room if your pain gets worse or any new symptoms. [facility] 02-14-2024 Note ED Patient Education Note [...] your health care provider. ? Follow the metal products fabricator assembler's instructions for use. ? Tighten and properly [...] provider. Document Revised: 05/04/2021 Document Reviewed: 05/04/2021 [employer] Patient Education ? 2022 [employer]. Foot Sprain A foot sprain is an [...] You may put (more content not included)... [facility] 02-14-2024 Evaluation + Plan note Extrac ekaterina from: Title:ED Note Author:Reddy Thao M.D. te:02/14/24 1. Sprain of left foot (S93. 602A: Unspecified sprain of left foot, initial encounter) Orders: ibuprofen, 600 mg = 1 tab(s), Tab, Oral, Once, Stop date 02/14/24 16:22:00 EDT, STAT, Start date 02/14/24 16:22:00 EDT, 02/14/24 16:22:00 EDT Post-op Shoe XR Foot 3+ Views Left [facility]04-04-2024 History of Present illness Narrative* Yuko Waite, POLITICAL SCIENCE PROFESSOR-LIFE SKILLS TEACHER - 2023 11:45 AM EDT Subjective Patient ID: Brian Tse is a 42 y.o. male. GEGE Torres presents to the office for physical exam as he is in the [employer] at [employer]. He will finish at the end of [...] complication, without long-term current use of insulin ([facility]) - blood sugar diagnostic (glucose blood) strip; [...] STEPHEN Ochoa 10/27/23 1548 [facility] Evaluation note* Encounter Date Diagnosis Assessment [...] worsening. Patient verbalized understanding of treatment plan. [employer] Other 04-13-2023 Hospital Discharge instructions Follow Up Care 11/04/2022 10:27:15 With:Patrick OWEN MD, URL Address: [facility] [address] , [place] [phone] When: Unknown [facility] 2022 Hospital Discharge instructions Patient Education 05/20/2022 14:32:40 Post Op Patient Instructions - FT (CUSTOM) Follow Up Care 04/27/2022 09:44:58 With:Nicky CHRISTINA Address: [facility] [address], [address] [employer] [address] [place] [phone] Business (1) When:7 to 10 days [facility]09-30-2022 Hospital Discharge instructions Patient Education 04/23/2022 12:05:06 Kidney Stones, Fcif-lx-Wyjv Kidney Stones Kidney stones are rock-like masses [...] Follow these instructions at home: Medicines Take wlwt-pxr-wbdfhwf and prescription medicines only as told by [...] 12/27/2008 Document Revised: 11/27/2019 Document Reviewed: 11/27/2019 [employer] Patient Education 2020 [employer]. Follow Up Care 04/22/2022 09:22:48 With:Patrick OWEN MD, URL Address: [address] [place], [place] [id number]- When: Unknown [facility] evaluation + Plan note Future Appointments Appointment Date:04/27/2022 09:00:00 AM Scheduled Provider:Nicky CHRISTINA MD Location:[facility] Appointment Type:[place] [address] Appointment Date:10/22/2022 08:45:00 AM Scheduled Provider:Patrick OWEN MD Location:[facility] Appointment Type:URO Office Visit Diagnostic Tests Pending * Calculi Analysis Urinary 04/23/22 [facility] evaluation + Plan note Future Appointments Appointment Date:05/13/2022 12:30:00 PM Scheduled Provider: Location:[facility] Appointment Type:Surgical PAT FT Appointment Date:05/13/2022 01:30:00 PM Scheduled Provider: Location:[facility] Appointment Type:Surgery PAT COVID Testing Appointment Date:05/20/2022 11:30:00 AM Scheduled Provider: Location:[facility] Appointment Type:Surgery FT Appointment Date:10/22/2022 08:45:00 AM Scheduled Provider:Patrick OWEN MD [facility] Office Visit [facility] [place] Evaluation + Plan note Future Appointments Appointment Date:05/20/2022 11:30:00 AM Scheduled Provider: Location:[facility] Appointment Type:Surgery FT Appointment Date:10/22/2022 08:45:00 AM Scheduled Provider:Patrick OWEN MD [facility] Future App[facility]ments Appointment Date:10/22/2022 08:45:00 AM Scheduled Provider:Patrick OWEN MD [facility] Future Appointments Appointment Date:06/22/2022 02:40:00 PM Scheduled Provider:Nicky CHRISTINA MD Location: [place] Appointment Type: Post Op 15 Appointment Date:10/22/2022 08:45:00 AM Scheduled Provider:Patrick OWEN MD [facility] Type:URO Office Visit [facility] Surgery [place] Evalumoksx noteNo assessment information available [facility] Work Phone: Evalujcrmr noteNo InformationNort [employer] Other Evalugqokb note* Diagnosis Encounter for occupational physical examination- Primary Type 2 diabetes mellitus without complication, without long-term current use of insulin ([facility]) Anxiety Anxiety state, unspecified Sleep disturbance Unspecified sleep disturbance documented in this encounter [facility]* Diagnosis Type II diabetes mellitus [...] Surgical History Foot Surgery Surgical History bunionectomy [employer] Other Hospital course Narrative No data available for this section [facility] Hospital Discharge instructions No data available for this section [facility] [place] InstructionsNot on filedocumented in this encounter [facility] [email or web address] note No data available for this section [facility] Summary Purpose Family History No [...] Diagnosis: Phimosis, N47.1 Surgeon: Nicky Swartz Resident/Fellow/Other Malted Milk Supervisor: Radha Madrigal Procedure: 1. CIRCUMCISION Anesthesia: No [...] section and content) DATE CREATED AUTHOR 01/12/2018 [facility] DATE CREATED AUTHOR AUTHOR'S ORGANIZ ATION 09/16/2020 [facility] DATE CREATED AUTHOR AUTHOR'S ORGANIZ ATION 11/04/2020 [facility] DATE CREATED AUTHOR AUTHOR'S ORGANIZ ATION 11/04/2020 [employer] DATE CREATED AUTHOR AUTHOR'S ORGANIZ ATION 12/04/2022 [facility] [place] [facility] DATE CREATED AUTHOR AUTHOR'S ORGANIZ ATION 12/06/2022 [facility] DATE CREATED AUTHOR AUTHOR'S ORGANIZ ATION 05/09/2024 [facility] EPIC DATE CREATED AUTHOR AUTHOR'S ORGANIZ ATION 05/26/2024 [facility] Care Team (unrecognized sect ion and content) Team Status: Active Member Role Status Dates Jude Ruvalcaba III , DO Primary Care Provider Active Team Status: Inactive Member Role Status Dates Jude Ruvalcaba III , DO Primary Care Provider Active Domonique Myers APRN Attending Provider Active Music Ministries Director Relationship Specialty Start Date End Date Yuko Waite APRN-LIFE SKILLS TEACHER PCP - General Nurse Practitioner 07/04/23 [employer] Ministries Director Relationship Specialty Start Date End Date Unallocated, Lorna Wilkins MD [address] [place] [address] PCP - General Family Medicine 05/04/24 Music Ministries Director Relationship Specialty Start Date End Date Unallocated, Lorna Wilkins MD [address] [facility] [place] [address] PCP - General Family Medicine 05/04/24 Goals [...] BE BASED ON THE PRIMARY CLINICAL RECORDS. [facility]. provides no warranty or guarantee of the accuracy or completeness of information in this document.
[2024-06-13 21:53] VITALS: BP 145/89; PULSE 98; TEMP 36.8; O2SAT 98; BMI 31.9
--- NOTE | 2024-06-13 22:03 | CT_ITS ---
[address] [address] Patient Name: YESENIA TSE MRN: [facility]:[id number] date: 1980 Sex: M Assigned Patient Location: ER Current Patient Location: Accession/Order Number: [id number] Exam Date: 06/13/2024 22:36 Report Date: 06/14/2024 00:20 At the request of: DAYA WHARTON Procedure: CT abdomen pelvis wo con EXAM: CT abdomen pelvis wo con HISTORY: Right sided pain, rule out stone COMPARISON: CT abdomen/pelvis 10/05/2023 TECHNIQUE: Axial CT images of the abdomen and pelvis were obtained. Coronal and sagittal reformats were provided. No contrast was administered. FINDINGS: Lung Bases: Clear. Lower Heart: Unremarkable. Liver: Findings suggest fatty infiltration of the liver as compared to the spleen. Normal liver contour. Gallbladder: Surgically absent. Spleen: Normal in size. No perisplenic fluid. Pancreas: Unremarkable. Adrenal Glands: Unremarkable. Kidneys / Ureters / Bladder: No hyperdense stone. No hydronephrosis. Ureters normal in course and caliber. Decompressed bladder. Bowel / Mesentery: No evidence of obstruction. No free intraabdominal air. Normal appendix. Lymph Nodes: No adenopathy. Vasculature: No aneurysmal dilation. Atherosclerotic calcifications of the abdominal aorta and its major branches. Reproductive Organs: Unremarkable. Soft Tissues: Postprocedural changes of the left inguinal region. No evidence of recurrent hernia. Focal fatty infiltration of the right rectus abdominis. Bones: No acute osseous findings. Transitional lumbosacral anatomy on the left. Hamstring enthesophytes. CT/CT abdomen pelvis wo con IMPRESSION: No CT evidence of acute abdominopelvic process. Specifically no urinary tract stones identified. Normal appendix. Electronically authenticated by: JUANITA SANABRIA Date: 06/14/2024 00:20
--- NOTE | 2024-06-13 22:03 | ED.ABDPAIN1 ---
HPI - Abdominal Pain General Chief Complaint: Abdominal Pain Stated Complaint: ABD PAIN Time Seen by Provider: 06/13/24 21:57 Source: patient Mode of arrival: walk-in History of Present Illness HPI narrative: 43-year-old male presents for pain in the right side of the abdomen which has been intermittent and started 2 days ago. It was radiating down to his right testicle. No injury or vomiting but he has been nauseous. No constipation or diarrhea. He has a history of kidney stones. No gross hematuria or dysuria. Related Data Home Medications ?Medication ?Instructions ?Recorded ?Confirmed aluminum-mag hydroxide-simethicone ml 06/13/24 200 mg-200 mg-20 mg/5 mL oral susp (Antacid-Antigas) Previous Rx's ?Medication ?Instructions ?Recorded acetaminophen 300 mg-codeine 30 mg 1 tab PO Q6H PRN pain 3 days #10 06/14/24 tablet tabs dicyclomine 10 mg capsule 10 mg PO QID PRN abdominal pain 06/14/24 #20 caps Allergies Allergy/AdvReac Type Severity Reaction Status Date / Time No Known Drug Allergies Allergy Verified 06/13/24 22:01 Review of Systems ROS Narrative A ten point review of systems is negative except as noted above. PFSH PFS Social History Smoking status: Current every day smoker Little interest or pleasure in doing things: not at all Feeling down, depressed, or hopeless: not at all Exam Narrative Exam Narrative: Nurses note and vital signs reviewed and patient is not hypoxic. General: The patient appears well and in no apparent distress. Patient is resting comfortably on cart. Skin: Warm, dry, no pallor noted. There is no rash noted. Head: Normocephalic, atraumatic Eye: Normal conjunctiva, no drainage Ears, Nose, Mouth, and Throat: oral mucosa is moist. Nares patent. Cardiovascular: Regular Rate and Rhythm Respiratory: Patient is in no distress, no accessory muscle use, lungs are clear to auscultation, no wheezing, rales or rhonchi Back: non-tender, no CVA tenderness bilaterally to percussion. GI: Soft and nontender including the right side abdomen. No masses. Musculoskeletal: The patient has no evidence of calf tenderness, no pitting edema, symmetrical pulses noted bilaterally Neurological: A&O, normal speech Psychiatric: Cooperative Constitutional Vital Signs, click to edit/add: Last Vital Signs Temp 98.3 F 06/13/24 21:53 Pulse 98 H 06/13/24 21:53 Resp 20 06/13/24 21:53 BP 145/89 H 06/13/24 21:53 Pulse Ox 98 06/13/24 21:53 O2 Del Method Room Air 06/13/24 21:53 Course Vital Signs Vital signs: Vital Signs Temperature 98.3 F 06/13/24 21:53 Pulse Rate 98 H 06/13/24 21:53 Respiratory Rate 06/13/24 21:53 Blood Pressure 145/89 H 06/13/24 21:53 Pulse Oximetry 98 06/13/24 21:53 Oxygen Delivery Method Room Air 06/13/24 21:53 Temperature 98.3 F 06/13/24 21:53 Pulse Rate 98 H 06/13/24 21:53 Respiratory Rate 06/13/24 21:53 Blood Pressure 145/89 H 06/13/24 21:53 Pulse Oximetry 98 06/13/24 21:53 Oxygen Delivery Method Room Air 06/13/24 21:53 MDM - Abdominal Pain MDM Narrative Medical decision making narrative: His workup including CAT scan of the abdomen is negative. Cause of his symptoms is uncertain but there is no evidence of kidney stone or other acute problem within the abdomen. Treatment diagnosis and follow-up were discussed with the patient. Differential Diagnosis Differential diagnosis: Likely abdominal pain, acute appendicitis, calculus of kidney, constipation, diverticulitis, gastroenteritis and small bowel obstruction Lab Data Attestation: I reviewed the patient's lab results. Labs: Lab Results 06/13/24 06/13/24 Range/Units 22:15 22:20 WBC 13.7 H (4.0-11.0) 10^3/uL RBC 5.11 (4.70-6.10) 10^6/uL Hgb 15.4 (14.0-18.0) g/dL Hct 45.0 (42.0-54.0) % MCV 88.1 (80.0-94.0) fL MCH 30.1 (25.9-34.0) pg MCHC 34.2 (29.9-35.2) g/dL RDW 13.8 (11.0-15.0) % Plt Count 235 (150-450) 10^3/uL MPV 10.2 (9.5-13.5) fL Neut % (Auto) 63.9 (43.0-75.0) % Lymph % (Auto) 26.8 (20.5-60.0) % [place] % (Auto) 7.8 (1.7-12.0) % Eos % (Auto) 0.4 L (0.9-7.0) % Baso % (Auto) 0.7 (0.2-2.0) % Neut # (Auto) 8.7 H (1.4-6.5) 10^3/uL Lymph # (Auto) 3.7 (1.2-3.8) 10^3/uL [place] # (Auto) 1.1 H (0.3-0.8) 10^3/uL Eos # (Auto) 0.1 (0.0-0.7) 10^3/uL Baso # (Auto) 0.1 (0.0-0.1) 10^3/uL Abs Immat Gran (auto) 0.05 H (0.00-0.03) 10^3/uL Imm/Tot Granulo (auto) 0.4 (0.0-0.5) % Sodium 141 (136-145) mmol/L Potassium 3.8 (3.5-5.1) mmol/L Chloride 105 (98-107) mmol/L Carbon Dioxide 23.9 (21.0-32.0) mmol/L Anion Gap 15.9 BUN 11.0 (7.0-18.0) mg/dL Creatinine 1.50 H (0.70-1.30) mg/dL Est GFR ( Amer) >60 (>=60 mL/min/1.73m^2) Est GFR (Non-Af Amer) 51 L (>=60 mL/min/1.73m^2) BUN/Creatinine Ratio 7.3 Glucose 155 H (74-106) mg/dL Calcium 9.0 (8.5-10.1) mg/dL Urine Color Yellow (YELLOW) Urine Clarity Clear (CLEAR) Urine pH 5.5 (5.0-9.0) Ur Specific [place] >=1.030 A (1.005-1.025) Urine Protein Trace (NEG/TRACE) mg/dL Urine Glucose (UA) 250 A (NEGATIVE) mg/dL Urine Ketones Trace A (NEGATIVE) mg/dL Urine Occult Blood Negative (NEGATIVE) Urine Nitrite Negative (NEGATIVE) Urine Bilirubin Negative (NEGATIVE) Urine Urobilinogen 0.2 (0.2-1.0) EU/dL Ur Leukocyte Esterase Negative (NEGATIVE) Urine RBC None seen (0-2) #/HPF Urine WBC None seen (NONE SEEN) #/HPF Ur Squamous Epith Cells Rare (NONE/RARE) #/LPF Urine Crystals Seen A (None Seen) #/HPF Amorphous Sediment Many Urine Bacteria Trace A (NONE SEEN) #/HPF Urine Casts None seen (NONE SEEN) #/LPF Urine Mucus None seen (NONE SEEN) Imaging Data CT scan - abdomen: Radiologist's impression: ITS Impressions Abdomen/Pelvis CT 06/13/24 22:03 IMPRESSION: No CT evidence of acute abdominopelvic process. Specifically no urinary tract stones identified. Normal appendix. Electronically authenticated by: JUANITA SANABRIA Date: 06/14/2024 00:20 Discharge Plan Discharge Chief Complaint: Abdominal Pain Clinical Impression: Abdominal pain Patient Disposition: Home, Self-Care Time of Disposition Decision: 00:54 Condition: Good Mode of Transportation: Private Vehicle Prescriptions / Home Meds: New acetaminophen-codeine 300-30 mg tablet 1 tab PO Q6H PRN (Reason: pain) 3 Days Qty: 10 0RF dicyclomine 10 mg capsule 10 mg PO QID PRN (Reason: abdominal pain) Qty: 20 0RF No Action alum-mag hydroxide-simeth [Antacid-Antigas] 200-200-20 mg/5 mL suspension Print Language: Polish Instructions: Abdominal Pain (ED) Referrals: Physician,Non-Staff, MD [Primary Care Provider] - 1 week
[2024-06-13 22:25] LABS: Basophils Absolute Auto 0.1 10^3/uL (0.0-0.1); Basophils Percent Auto 0.7 % (0.2-2.0); Eosinophils Absolute Auto 0.1 10^3/uL (0.0-0.7); Eosinophils Percent Auto 0.4 % (0.9-7.0); Hemoglobin 15.4 g/dL (14.0-18.0); Immature Granulocytes Abs Auto 0.05 10^3/uL (0.00-0.03); Immature Granulocytes Pct Auto 0.4 % (0.0-0.5); Lymphocytes Absolute Auto 3.7 10^3/uL (1.2-3.8); Lymphocytes Percent Auto 26.8 % (20.5-60.0); Mean Corpuscular HGB Conc 34.2 g/dL (29.9-35.2); Mean Corpuscular Hemoglobin 30.1 pg (25.9-34.0); Mean Corpuscular Volume 88.1 fL (80.0-94.0); Mean Platelet Volume 10.2 fL (9.5-13.5); Monocytes Absolute Auto 1.1 10^3/uL (0.3-0.8); Monocytes Percent Auto 7.8 % (1.7-12.0); Neutrophils Absolute Auto 8.7 10^3/uL (1.4-6.5); Neutrophils Percent Auto 63.9 % (43.0-75.0); Platelet Count 235 10^3/uL (150-450); Red Blood Count 5.11 10^6/uL (4.70-6.10); Red Cell Distribution Width 13.8 % (11.0-15.0); White Blood Count 13.7 10^3/uL (4.0-11.0)
[2024-06-13 22:35] LABS: Bilirubin Urine NEGATIVE (NEGATIVE); Blood Urine NEGATIVE (NEGATIVE); Clarity Urine CLEAR (CLEAR); Color Urine YELLOW (YELLOW); Glucose Urine UA 250 mg/dL (NEGATIVE); Ketones Urine TRACE mg/dL (NEGATIVE); Leukocyte Esterase Urine NEGATIVE (NEGATIVE); Nitrite Urine NEGATIVE (NEGATIVE); Protein Urine TRACE mg/dL (NEG/TRACE); Specific Gravity Urine >=1.030 (1.005-1.025); Urobilinogen Urine 0.2 EU/dL (0.2-1.0); pH Urine 5.5 (5.0-9.0)
[2024-06-13 22:38] LABS: Anion Gap 15.9; BUN Creatinine Ratio 7.3; Carbon Dioxide 23.9 mmol/L (21.0-32.0); Chloride 105 mmol/L (98-107); Estimated GFR (African America >60 (>=60 mL/min/1.73m^2); Estimated GFR (Non-African Ame 51 (>=60 mL/min/1.73m^2); Glucose 155 mg/dL (74-106); Sodium 141 mmol/L (136-145)
[2024-06-13 22:42] LABS: Potassium 3.8 mmol/L (3.5-5.1)
[2024-06-13 22:57] LABS: Amorphous Sediment Urine MANY; Bacteria Urine TRACE #/HPF (NONE SEEN); Mucus Urine NONE SEEN (NONE SEEN); RBC Urine NONE SEEN #/HPF (0-2); Squamous Epithelial Cell Urine RARE #/LPF (NONE/RARE); WBC Urine NONE SEEN #/HPF (NONE SEEN)
[2024-06-13 22:58] LABS: Cast Seen? NONE SEEN #/LPF (NONE SEEN); Crystals Seen? Seen #/HPF (None Seen)
[2024-06-14] MEDS: KETOROLAC TROMETHAMINE 30 MG/ML VIAL IVP (00:45)
[2024-06-14] MEDS: DICYCLOMINE HCL 10 MG CAPSULE PO (01:19)
== END 2024-06-14 01:24 | disposition home or self-care (01) ==
PROVIDERS: Emergency Provider Emergency Medicine
DX: R10.9 Unspecified abdominal pain (principal); Z87.442 Personal history of urinary calculi; F17.200 Nicotine dependence, unspecified, uncomplicated
CPT/HCPCS: 36415; 74176; 80048; 81001; 85025; 96374; 99284; J1885

== ENCOUNTER 2024-09-07 02:06 | Emergency (ER) | payer OTHER, SELFPAY ==
[2024-09-07 02:12] VITALS: BP 140/87; PULSE 83; TEMP 36.6; O2SAT 97; BMI 31.6
--- OUTSIDE RECORDS SUMMARY | 2024-09-07 02:14 | XMS_ITS | CCD ---
Author Organization [facility] Care Team Providers Care Cloth Trimmer Hand Name Role Phone NAHOMY SHARP (MAZIN) Unavailable Unavailable Jude Ruvalcaba III Primary Care Physician SALBADOR BOOKER Primary Care Physician DO Jude Ruvalcaba III Primary Care Provider ALMA DELIA Myers Attending Provider [phone] Asaad, Imad Unavailable HERRERA ., [facility] Admitting [...] Unavailable OWEN ., DR NGUYEN Consulting Unavailable OEWN ., DR NGUYEN Admitting Unavailable OWEN ., [...] Care Provider SALBADOR BOOKER Primary Care Physician [phone] DON SANTOS Attending Unavailable Unallocated , [facility] Provider Primary Care Provi devora Reddy Thao Attending Unavailable Allergies Allergy Classification Reported Allergen(s) Allergy Type Date of Onset Reaction(s) Facility metFORMIN (1 source) metFORMIN; Translations: [metformin] Drug Allergy Diarrhea (finding) [facility] (13 sources) metFORMIN; Translations: [metformin] Drug Allergy 3 Diarrhea (finding), Diarrhea [facility] (1 source) metFORMIN Drug Allergy [facility] (2 sources) varenicline Drug Allergy 8 [facility] (1 source) Acetaminophen / oxyCODONE; Translations: [Percocet 5/325] Drug Allergy [facility] (1 source) No Known Medication Allergies; Translations: [No Known Medication Allergies] Propensity to adverse reactions (disorder) [facility] Repository Medications Current Medications Medication Drug Class(es) Dates Sig (Normalized) Sig (Original) acetaminophen 325 mg / oxyCODONE hydrochloride 5 mg oral tablet (1 source) Opioid Agonist Start: 05-20-2022 End: 05-25-2022 Percocet 325 mg-5 mg Tab 1 tab(s), Oral, q3hr Pain, 20 tab(s), Refill(s) 0, take with food or milk, [id number], 180, cm, 05/13/22 12:43:00 EDT, Height/Length Dosing, [...] Active blood-glucose meter (glucose monitoring kit) kit (3 sources) Start: 07-05-2023 blood-glucose meter (glucose monitoring kit) kit Use as instructed 1 each 07/05/2023 Active Start: 07-05-2023 blood-glucose meter (glucose monitoring kit) kit Use as instructed 1 each 0 07/05/2023 Active 24 hr buPROPion hydrochloride 150 mg extended release oral tablet (3 sources) Aminoketone Start: 2023 End: 11-21-2023 take 1 tablet by mouth once daily in the morning buPROPion XL (WELLBUTRIN XL) 150 mg 24 hr tablet Take 1 tablet (150 mg total) by mouth every morning. 90 tablet 1 11/21/2023 Active cephalexin 500 mg oral capsule (2 [...] Ordered 0.5 ml dulaglutide 1.5 mg/ml auto-injector (9 sources) GLP-1 Receptor Agonist Start: 08-08-2023 dulaglutide (TRULICITY) 0.75 mg/0.5 mL pen injector INJECT 0.5 ML (0.75 MG TOTAL) UNDER THE SKIN EVERY 7 DAYS 2 mL 0 08/08/2023 Active Start: 07-05-2023 End: 2023 dulaglutide (TRULICITY) 0.75 mg/0.5 mL pen injector Inject 0.5 mL (0.75 mg total) under the skin every 7 days. 2 mL 2023 Active Start: 01-29-2020 Dulaglutide (T rulicity) [...] days, # 2 tab(s), Refills(s) 0, Pharmacy: [facility] 1155, 173, cm, 07/30/20 10:33:00 EST, Height/Length Dosing, 109.1, kg, 07/30/20 10:33:00 EST, Weight Dosing Start Date: 07/30/20 Status: Ordered glyBURIDE 5 mg oral tablet (14 sources) Sulfonylurea Start: 01-23-2024 take 1 tablet by mouth once daily at mealtime glyBURIDE (Diabeta) 5 MG tablet TAKE 1 TABLET BY MOUTH EVERY MORNING AND AT NIGHT WITH MEALS 01/23/2024 Active Start: 2023 take 1 tablet by ayde th at mealtime glyBURIDE (DIABETA) 5 mg tablet Indications: Type 2 diabetes mellitus without complication, without long-term current use of insulin ([facility]) TAKE 1 TABLET BY MOUTH IN THE MORNING AND AT NIGHT WITH MEALS 60 tablet 2 2023 Active Start: 07-04-2023 take 1 tablet by ayde th at mealtime glyBURIDE (DIABETA) 5 mg tablet Indications: Diabetic peripheral neuropathy associated with type 2 diabetes mellitus ([facility]) TAKE 1 TABLET BY MOUTH IN THE MORNING AND AT NIGHT WITH MEALS 60 tablet 1 07/04/2023 Active Start: 04-23-2022 End: 2023 take 1 tablet by mouth at mealtime glyBURIDE (DIABETA) 5 mg tablet Indications: Type 2 diabetes mellitus without complication, without long-term current use of insulin ([facility]) TAKE 1 TABLET BY MOUTH IN THE [...] food, # 12 tab(s), Refills(s) 0, Pharmacy: [facility], 173, cm, 07/30/20 10:33:00 EST, Height/Length [...] Ordered Start: 02-04-2020 take 1 capsule by [facility] every twelve hours Omeprazole 40 MG 1 capsule Orally bid for 10 day(s) Jan, Not-Taking SITagliptin 100 mg oral tablet (4 sources) Dipeptidyl Peptidase 4 Inhibitor Start: 01-29-2020 take 1 tablet by mouth once daily Januvia 100 mg Tab 100 mg = 1 tab(s), Oral, Daily, # 30 tab(s), Refills(s) 0 Start Date: 09/11/20 Status: Ordered tamsulosin hydrochloride 0.4 mg oral capsule (4 sources) alpha-Adrenergic Liliam Start: 11-05-2022 End: 2023 tamsulosin (FLOMAX) 0.4 mg capsule Take by mouth daily. 0 11/05/2022 Active traZODone hydrochloride 50 mg oral tablet (3 sources) Serotonin Reuptake Inhibitor Start: 2023 End: 11-21-2023 take 1 tablet by mouth once daily traZODone (DESYREL) 50 mg tablet Take 1 tablet (50 mg total) by mouth nightly. 90 tablet 1 11/21/2023 Active Completed/Discontinued Medications Medication Drug Class(es) Dates [...] 10 day(s) Jan, Not-Taking polyethylene glycol 3350 406201 mg / potassium chloride 2970 mg / sodium bicarbonate 6740 mg / sodium chloride 5860 mg / sodium sulfate 41293 mg powder for oral solution (4 sources) Osmotic Laxative Start: 11-04-2022 End: 2023 GAVILYTE-G 236-22.74-6.74 -5.86 gram solution daily. 0 11/04/2022 2023 Discontinued (Therapy completed) valACYclovir 1000 mg oral tablet (2 sources) Herpesvirus Nucleoside Analog DNA Polymerase Inhibitor, Herpes [...] pain] Onset: 2 Episodic Acquired foot deformities (5 sources) Hallux valgus; Translations: [Hallux valgus (acquired), unspecified foot] Onset: 2 03-08-2018 Chronic Administrative/social admission (1 source) Patient encounter status; Translations: [Encounter for other administrative examinations] 2023 Episodic Anxiety disorders (3 sources) Anxiety; Translations: [Anxiety disorder, unspecified] Onset: 4 2023 Chronic Calculus of urinary tract (20 sources) Ureteric stone; Translations: [Calculus of ureter] Onset: 2 Episodic Diabetes mellitus with complications (5 sources) 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 mellitus; Translations: [Type 2 diabetes mellitus with diabetic polyneuropathy] Onset: 2 09-09-2021 Chronic Diabetes mellitus without complication (20 sources) Diabetes mellitus; Translations: [Type 2 diabetes [...] Major depression, single episode 09-11-2020 Chronic Mycoses (11 sources) Candidal balano-posthitis; Translations: [Other urogenital candidiasis] Onset: 2 07-30-2020 Episodic Nausea and vomiting (4 sources) Nausea; Translations: [Nausea] Episodic Osteoarthritis (3 sources) Arthritis of right acromioclavicular joint; Translations: [Primary osteoarthritis, right shoulder] Onset: 8 09-09-2021 Chronic Other aftercare (1 source) 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 drugs; Translations: [SNF USE ORAL 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 DX] Onset: 3 Episodic Other connective tissue disease (2 sources) [...] level 09-11-2020 Episodic Other nervous system disorders (3 sources) Mortons neuroma of right foot; Translations: [Lesion of plantar nerve, right lower limb] Onset: 2 09-09-2021 Chronic Other nervous system disorders (3 sources) Plantar nerve lesion; Translations: [Lesion of plantar nerve, unspecified lower limb] Onset: 2 09-09-2021 Chronic Other nutritional; endocrine; and metabolic disorders (13 sources) Body mass index 30+ - obesity; [...] [ACQ ABSENCE OTH PART DIGESTV TRACT] Onset: Episodic Screening and history of mental health and substance abuse codes (6 sources) Tobacco use and exposure - finding 04-28-2022 Chronic Skin and subcutaneous tissue infections (2 sources) Abscess of toe of right foot; Translations: [Cutaneous abscess of right foot] 05-07-2024 Episodic Sprains and strains (4 sources) Strain of muscle(s) and tendon(s) of the rotator cuff of right shoulder, initial encounter; Translations: [Rotator cuff (capsule) sprain] Onset: 8 09-09-2021 Episodic Substance-related disorders (20 sources) Smoker; Translations: [Nicotine dependence, cigarettes, uncomplicated] [...] Da te Episodic/Chronic Fever of unknown origin (5 sources) Fever; Translations: [Fever, unspecified] Onset: 09-09-2021 07-30-2020 Episodic Headache; including migraine (7 sources) Chronic headache disorder; Translations: [Headache] Onset: 09-09-2021 03-08-2018 Episodic Mood disorders (4 sources) Mood disorders; Translations: [DEPRESSION UNSPECIFIED] Onset: 11-01-2022 07-04-2023 Nonspecific chest pain (4 sources) Other chest pain; Translations: [OTHER CHEST PAIN] Onset: 02-17-2022 Episodic Other circulatory disease (5 sources) Elevated blood pressure; Translations: [Elevated blood-pressure reading, without diagnosis of hypertension] Onset: 09-09-2021 07-30-2020 Episodic Other connective tissue disease (3 sources) Tendonitis of right shoulder; Translations: [Other enthesopathies, not elsewhere classified] Onset: 10-14-2017 09-09-2021 Episodic Residual codes; unclassified (3 sources) Disturbance in sleep behavior; Translations: [Sleep disorder, unspecified] Onset: 2023 2023 Episodic Unclassified (3 sources) Onset: 12-16-2022 12-16-2022 Results Test Name Value Interpretation Reference Range Facility ED Clinical Summaryon 2023 ED Clinical Summary ED Clinical Summary [address] [address] ED Clinical Summary Person Information [facility]: [facility] 43 [facility] : 1980 Sex: Male Language: Sinhala PCP: SALBADOR BOOKER CNP Marital Status: Single Phone: [phone] Visit Id: Visit Reason: Foot pain-swelling; LT [...] 02/14/2024 17:04:58 02/14/2024 17:04:58 02/14/2024 17:04:58 ADDRESS: [address] [place] [phone] PHYS DOC NOTES: MEDICAL INFORMATION: Prescriptions Given: Medications to Continue with No Changes Other Medications glyBURIDE (GlyBURIDE (Eqv-Micronase) 5 mg oral tablet) 1 Tablets By Mouth 2 times a day. tamsulosin (tamsulosin 0.4 mg Cap) 1 Capsules By Mouth every day. Refills: 0. PATIENT EDUCATION INFORMATION: Instructions: How to Use a Cast Shoe; Foot Sprain Follow up: With: Address: When: SALBADOR BOOKER [address] [place] [address] [phone] [facility] ([place] In 3 days 02/17/2024 Comments: Return to the emergency room if your pain gets worse or any new symptoms. DIAGNOSIS: 1:Sprain of left foot Normal [facility] ED Note-Physicianon 02-14-20 ED Note-Physician ED [...] and Complexity of Problems Differential Diagnosis: [] [facility] Data External documents reviewed: [] My EKG [...] BOOKER In 3 days 02/17/2024 EDT [address] [place] [address] Business (1) Additional Instructions: Return [...] Views Left (more content not included)... Normal [facility] Comment on above: Result Comment: Elec tronically Signed By: Master Olivo, Reddy H\.br\Date and Time Signed: 02/14/24 16:56 EDT ED Patient Summaryon 024 ED Patient Summary ED Patient Summary [address] [address] Patient Discharge Instructions Person Information Name: BRIAN TSE Age: 43 Years Arrival Date: 02/14/2024 15:56:45 Discharge Diagnosis: 1:Sprain of left foot Primary Care Physician: SALBADOR BOOKER CNP Provider Information Primary Provider: Reddy Thao M.D. Advanced Applications Administrator:None The exam and treatment you received in the Emergency Department were for an urgent problem and are not intended as complete care. It is important that you follow up with a doctor, nurse practitioner, or physician?s captain's assistant for ongoing care. If your symptoms [...] Follow-up Instructions: With: Address: When: SALBADOR BOOKER [address] [place] [address] [phone] [facility] (1) In 3 days 02/17/2024 Comments: [...] opioids can be used to help relieve zfpvqbyy-oh-lhizxd pain and are often prescribed following a [...] tell you (more content not included)... Normal [facility] XR Foot 3+ Views Lefton 01-23 [...] REPORT Dictated: 02/14/2024 4:46 pm Hamilton Finney MD. Signed (Electronic Signature): 02/14/2024 4:46 pm Signed by: Hamilton Finney MD Transcribed by: JOSE MANUEL Technologist: CML Technical Comments Radiation Dose: Ka,r in mGy = . DAP = . Normal [facility] Glucose Poct Glucometerson 0 11-30-2022 Glucose [Mass/Vol] 155 mg/dL Normal [facility] Comment on above: Result Comment: [facility] Glucose Reference Range is dependent on time and content of last meal. Glucose of more than 200 mg/dL in a nonstressed, ambulatory subject supports the diagnosis of Diabetes Mellitus. PERFORMED BY: [facility] [address] [place] [place] [address] PATHOLOGIST INCOME TAX AUDITOR IGLESIA SANCHEZ M.D. Performed By: #### G STIVEN #### Point of Care testing , [facility] 11-30-2022 L --- Specimen: [id number] Received: 11/30/22 Status: JAGDISH Perdomomartín Num: [id number] Spec Type: Surgical Subm Dr: Edvin Colunga MD Tissues: A Colon Biopsy (ASCENDING POLYP) Procedures: HE/2, Gross/Micro L4 Age/ Patient Sex Location Account Attending Physician Brian Tse/M [id number] Edvin Colunga MD SPEC NUM: [id number] RECD: 11/30/22 STATUS: JAGDISH PERDOMOMartín NUM: [id number] REINA: 11/30/22- [facility] DR: Edvin Colunga MD ENTERED: 11/30/22 COLE [...] support the above pathologic diagnosis. CPT Codes 91254 Specimen: [id number] Received: 11/30/22 Status: JAGDISH Belcher Num: [id number] Spec Type: Surgical Subm Dr: Edvin Colunga MD Tissues: A Colon Biopsy (ASCENDING POLYP) Procedures: YU Gross/Micro L4 Patient: Brian Tse A [id number] (Continued) Signed (signature on file) Daily Quarles MD 12/01/22 1158 [facility] CBC AUTO DIFFon 10-28-2022 BASO # 0.1 103/ul Normal 0.0-0.1 [facility] [place] [facility] Comment on above: Performed By: #### C BC #### [facility] [address] [place] [address] Dr. Yash Mckeon Basophils/100 WBC (Bld) 0.8 % Normal 0.2-2.0 [facility] [place] [facility] Comment on above: Performed By: #### C BC #### [facility] [address] [address] [address] Yash Mckeon EO # 0.4 103/ul Normal 0.0-0.7 [facility] [place] [facility] Comment on above: Performed By: #### C BC #### [facility] [address] [place] [address] Dr. Yash Mckeon Eosinophils/100 WBC (Bld) 3.3 % Normal 0.9-7.0 [facility] [place] [facility] Comment on above: Performed By: #### C BC #### [facility] [address] [place] [address] Dr. Yash Mckeon Erythrocyte distribution width (RBC) [Ratio] 14.0 % Normal 11.0-15.0 [facility] [place] [facility] Comment on above: Performed By: #### C BC #### [facility] [address] [place] [address] Dr. Yash Mckeon Hematocrit (Bld) [Volume fraction] 45.4 % Normal 42.0-54.0 [facility] [place] [facility] Comment on above: Performed By: #### C BC #### [facility] [address] [place] [address] Dr. Yash Mckeon Hemoglobin (Bld) [Mass/Vol] 14.8 g/dL Normal 14.0-18.0 [facility] [place] [facility] Comment on above: Performed By: #### C BC #### [facility] [address] [place] [address] Dr. Yash Mckeon IG # 0.04 10e3/ul Critically high 0.00-0.03 [facility] Comment on above: Performed By: #### C BC #### [facility] [address] [place] [address] Dr. Yash Mckeon IG % 0.4 % Normal 0.0-0.5 [facility] [place] [facility] Comment on above: Performed By: #### C BC #### [facility] [address] [place] [address] Dr. Yash Mckeon LYMPH # 2.8 103/ul Normal 1.2-3.8 [facility] [place] [facility] Comment on above: Performed By: #### C BC #### [facility] [address] [place] [address] Dr. Yash Mckeon Lymphocytes/100 WBC (Bld) 25.3 % Normal 20.5-60.0 [facility] [place] [facility] Comment on above: Performed By: #### C BC #### [facility] [address] [place] [address] Dr. Yash Mckeon MANUAL DIFF REQ NO Normal [facility] Comment on above: Performed By: #### C BC #### [facility] [address] [place] [address] Dr. Yash Mckeon MCH (RBC) [Entitic mass] 28.6 pg Normal 25.9-34.0 [facility] [place] [facility] Comment on above: Performed By: #### C BC #### [facility] [address] [place] [address] Dr. Yash Mckeon MCHC (RBC) [Mass/Vol] 32.6 g/dL Normal 29.9-35.2 [facility] Comment on above: Performed By: #### C BC #### [facility] [address] [place] [address] Dr. Yash Mckeon MCV (RBC) [Entitic vol] 87.8 fL Normal 80.0-94.0 [facility] [place] [facility] Comment on above: Performed By: #### C BC #### [facility] [address] [address] [address] Yash Mckeon MONO # 1.0 103/ul Critically high 0.3-0.8 [facility] Comment on above: Performed By: #### C BC #### [facility] [address] [address] [address] Yash Mckeon Monocytes/100 WBC (Bld) 8.6 % Normal 1.7-12.0 [facility] Comment on above: Performed By: #### C BC #### [facility] [address] [address] [address] Yash Mckeon NEUT # 6.9 103/ul Critically high 1.4-6.5 [facility] Comment on above: Performed By: #### C BC #### [facility] [address] [place] [address] Dr. Yash Mckeon Neutrophils/100 WBC (Bld) 61.6 % Normal 43.0-75.0 [facility] [place] [facility] Comment on above: Performed By: #### C BC #### [facility] [address] [place] [address] Dr. Yash Mckeon Platelet mean volume (Bld) [Entitic vol] 10.0 fL Normal 9.5-13.5 [facility] Comment on above: Performed By: #### C BC #### [facility] [address] [place] [address] Dr. Yash Mckeon PLT 250 103/ul Normal 150-450 [facility] Comment on above: Performed By: #### C BC #### [facility] [address] [place] [address] Dr. Yash Mckeon RBC 5.17 106/ul Normal 4.70-6.10 [facility] Comment on above: Performed By: #### C BC #### [facility] [address] [place] [address] Dr. Yash Mckeon WBC 11.2 103/ul Critically high 4.0-11.0 [facility] Comment on above: Performed By: #### C BC #### [facility] [address] [place] [address] Dr. Yash Mckeon POINT OF CARE GLUCOSEon 04-0 Glucose [Mass/Vol] 219 mg/dL Critically high 74-106 T [facility] Comment on above: Performed By: #### P OCGLUC #### [facility] [address] [address] [address] Yash Mckeon PROF CHEM 8 (BAS METB)on Anion gap [Moles/Vol] 11.8 mmol/L Normal [facility] [place] [facility] Comment on above: Performed By: #### B MP #### [facility] [address] [address] [address] Yash Mckeon Calcium [Mass/Vol] 8.6 mg/dL Normal 8.5-10.1 [facility] Comment on above: Performed By: #### B MP #### [facility] [address] [place] [address] Dr. Yash Mckeon Chloride [Moles/Vol] 101 mmol/L Normal 98-107 [facility] [place] [facility] Comment on above: Performed By: #### B MP #### [facility] [address] [address] [address] Yash Mckeon CO2 [Moles/Vol] 28.0 mmol/L Normal 21.0-32.0 [facility] Comment on above: Performed By: #### B MP #### [facility] [address] [address] [address] Yash Mckeon Creatinine [Mass/Vol] 1.13 mg/dL Normal 0.70-1.30 [facility] [place] [facility] Comment on above: Performed By: #### B MP #### [facility] [address] [address] [address] Yash Mckeon EGFR-AF TUNISIAN >60 Normal >=60 [facility] Comment on above: Performed By: #### B MP #### [facility] [address] [place] [address] Dr. Yash Mckeon EGFR-NON AF TUNISIAN >60 Normal >=60 [facility] Comment on above: Performed By: #### B MP #### [facility] [address] [address] [address] Yash Mckeon Glucose [Mass/Vol] 196 mg/dL Critically high 74-106 T [facility] Comment on above: Performed By: #### B MP #### [facility] [address] [address] [address] Yash Mckeon Potassium [Moles/Vol] 3.8 mmol/L Normal 3.5-5.1 [facility] Comment on above: Performed By: #### B MP #### [facility] [address] [address] [address] Yash Mckeon Sodium [Moles/Vol] 137 mmol/L Normal 136-145 [facility] Comment on above: Performed By: #### B MP #### [facility] [address] [address] [address] Yash Mckeon Urea nitrogen [Mass/Vol] 14.0 mg/dL Normal 7.0-18.0 [facility] Comment on above: Performed By: #### B MP #### [facility] [address] [place] [address] Dr. Yash Mckeon Urea nitrogen/Creatinine [Mass ratio] 12.4 mg/mg Normal [facility] Comment on above: Performed By: #### B MP #### [facility] [address] [address] [address] Yash Mckeon PROTIMEon 10-28-2022 INR Coag (PPP) [Relative time] {INR} Normal [facility] Comment on above: Performed By: #### P OCGLUC #### [facility] [address] [place] [address] Dr. Yash Mckeon INR GUIDELINES SEE BELOW Normal [facility] Comment on above: Result Comment: ZAN RED INR: 2.0 - 3.0 CONDITIONS NOT LISTED BELOW 2.5 - 3.5 FOR PROSTHETIC HEART VALVE REPLACEMENT 2.5 - 3.5 RECURRENT THROMBOSIS Performed By: #### P OCGLUC #### [facility] [address] [place] [address] Dr. Yash Mckeon PT Coag (PPP) [Time] 9.8 s Normal 9.0-11.6 [facility] Comment on above: Performed By: #### P OCGLUC #### [facility] [address] [place], [place] [address] Dr. Yash Mckeon PTTon 10-28-2022 aPTT Coag (Bld) [Time] 30.5 s Normal 22.3-36.2 [facility] Comment on above: Performed By: #### P OCGLUC #### [facility] [id number] 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 Copies to: Domonique Myers APRN Ordering Provider: [...] Linda Sierra M.D.10/21/2022 2:10 PM Dictation Location: [place] [address] Transcribed By: [facility] 10/21/22 1410 Dictated By: Linda Sierra MD 10/21/22 1406 Signed By: 10/21/22 1410 [facility] CHEMISTRYOrdered By: Lab ROP User on 05-20-2022 Glucose [Mass/Vol] 173 mg/dL High 55 - 99 mg/dL [facility] [place] Subsection Comment on above: Result Comment: Dayanara alcantar RN/ POC Device SN [id number] Invalid Interpretation Code [facility] [place] Subsection POC User ID [id number] Invalid Interpretation [place] [facility] [place] POC Username CHINEDU POSADAS Invalid Interpretation Code [facility] [place] Subsection CHEMISTRYOrdered By: SYSTEM SYSTEM on 05-13-2022 Anion gap [Moles/Vol] 15 mmol/L Normal 6 - 16 mEq/L [facility] [place] Remisol Chloride [Moles/Vol] 102 mmol/L Normal 101 - 1 11 mmol/L [facility] [place] Remisol CO2 [Moles/Vol] 22 mmol/L Normal 21 - 31 mmol/L [facility] [place]isol Creatinine [Mass/Vol] 1.1 mg/dL Normal 0.5 - 1.3 mg/dL [facility] [place] Remisol GFR/1.73 sq M.predicted among blacks MDRD (S/P/Bld) [Vol rate/Area] mL/min/1.73 m2 Normal >=59mL/min/1 .73 m2 [facility] [place] Chem S GFR/1.73 sq M.predicted among non-blacks MDRD (S/P/Bld) [Vol rate/Area] mL/min/1.73 m2 Normal >=59mL/min/1 .73 m2 [facility] [place] Chem S Glucose [Mass/Vol] 171 mg/dL Normal 55 - 199 mg/dL [facility] [place] Remisol Potassium [Moles/Vol] 3.7 mmol/L Normal 3.5 - 5.3 mmol/L [facility] [place] Remisol Sodium [Moles/Vol] 135 mmol/L Normal 135 - 145 mmol/L [facility] [place]isol Urea nitrogen [Mass/Vol] 10 mg/dL Normal 5 - 21 mg/dL [facility] [place]isol HEMATOLOGYOrdered By: Scarlett Nicholson on 05-13-2022 Erythrocyte distribution width (RBC) [Ratio] 13.9 % Normal 10.9 - 14.2 % [facility] [place] HemeAutoSS Hematocrit (Bld) [Volume fraction] 47.7 % Normal 37.7 - 49.0 % [facility] [place] [facility] Hemoglobin (Bld) [Mass/Vol] 16.5 g/dL Normal 13.5 - 17.5 gm/dL [facility] [place] [facility]e[employer] MCH (RBC) [Entitic mass] 29.3 pg Normal 27.0 - 34.0 pg [facility] [place] [facility] MCHC (RBC) [Mass/Vol] 34.5 g/dL Normal 31.4 - 36.0 gm/dL [facility] [place] [facility]eAuto[facility] MCV (RBC) [Entitic vol] 84.9 fL Normal 80.0 - 100.0 fL [facility] [place] [facility] Platelet mean volume (Bld) [Entitic vol] 8.5 fL Normal 6.4 - 10.8 fL [facility] [place] [facility] Platelets (Bld) [#/Vol] 210.0 E9/L Normal 150.0 - 500.0 E9/L FT HemeAutoSS RBC (Bld) [#/Vol] 5.6 E12/L Normal 4.3 - 5.9 E12/L [facility] [place] [facility] WBC corrected for nucl RBC Auto (Bld) [#/Vol] 9.1 E9/L Normal 4.0 - 11.0 E9/L [facility] [place] [facility] CALCULI, URINARYon 2 2,8 Dihydroxyadenine Normal [facility] [place] [facility] Comment on above: Performed By: #### P OCGLUC #### [facility] [address] [address] [address] Yash Mckeon Ammonium Acid Urate Normal [facility] Comment on above: Performed By: #### P OCGLUC #### [facility] [address] [address] [address] Yash Mckeon Bilirubin Ql (U) Normal [facility] Comment on above: Performed By: #### P OCGLUC #### [facility] [address] [address] [address] Yash Mckeon Ca Oxalate Dihydrate [facility] Comment on above: Performed By: #### P OCGLUC #### [facility] [address] [address] [address] Yash Mckeon CaHPO4 (Brushite) [facility] Comment on above: Performed By: #### P OCGLUC #### [facility] [address] [address] [address] Yash Mckeon Calcium Bilirubinate [facility] Comment on above: Performed By: #### P OCGLUC #### [facility] [address] [address] [address] Yash Mckeon Calcium Carbonate [facility] Comment on above: Performed By: #### P OCGLUC #### [facility] [address] [address] [address] Yash Mckeon Calcium Oxalate Monohydrate [facility] Comment on above: Performed By: #### P OCGLUC #### [facility] [address] [address] [address] Yash Mckeon Calcium Palmitate Normal [facility] Comment on above: Performed By: #### P OCGLUC #### [facility] [address] [address] [address] Yash Mckeon Calcium Phosphate Normal [facility] Comment on above: Performed By: #### P OCGLUC #### [facility] [address] [address] [address] Yash Mckeon Calcium Stearate [facility] Comment on above: Performed By: #### P OCGLUC #### [facility] [address] [address] [address] Yash Mckeon Carbonate Apatite Normal [facility] Comment on above: Performed By: #### P OCGLUC #### [facility] [address] [address] [address] Yash Mckeon Cellular Material [facility] Comment on above: Performed By: #### P OCGLUC #### [facility] [address] [address] [address] Yash Mckeon Cholesterol [facility] Comment on above: Performed By: #### P OCGLUC #### [facility] [address] [address] [address] Yash Mckeon Color (U) Quigley [facility] Comment on above: Performed By: #### P OCGLUC #### [facility] [address] [address] [address] Yash Mckeon Comment Comment [facility] Comment on above: Result Comment: Lolly talline substances normally associated with human calculi were not identified. Specimen is consistent with organic material. Insufficient sample to perform additional, confirmatory, or reference testing. Performed By: #### P OCGLUC #### [facility] [address] [address] [address] Yash Mckeon Comment [facility] Comment on above: Performed By: #### P OCGLUC #### [facility] [address] [address] [address] Yash Mckeon Comment: Comment Normal [facility] [place] [facility] Comment on above: Result Comment: Phys ician questions regarding Calculi Analysis contact [facility] at: [phone]. Performed By: #### P OCGLUC #### [facility] [address] [address] [address] Yash Mckeon Composition Comment [facility] Comment on above: Result Comment: Plea se see comment Performed By: #### P OCGLUC #### [facility] [address] [address] [address] Yash Mckeon Cystine [facility] Comment on above: Performed By: #### P OCGLUC #### [facility] [address] [address] [address] Yash Mckeon Disclaimer: Comment Normal [facility] [place] [facility] Comment on above: Result Comment: This test was developed and its performance characteristics determined by [facility]. It has not been cleared or approved by the Food and Drug Administration. Performed By: #### P OCGLUC #### [facility] [address] [address] [address] Yash Mckeon Dried Blood [facility] Comment on above: Performed By: #### P OCGLUC #### [facility] [address] [address] [address] Yash Mckeon Drug or Metabolite [facility] Comment on above: Performed By: #### P OCGLUC #### [facility] [address] [place] [address] Dr. Yash Mckeon Hydroxyapatite [facility] Comment on above: Performed By: #### P OCGLUC #### [facility] [address] [place] [address] Dr. Yash Mckeon Mg NH4 PO4 (Struvite) [facility] Comment on above: Performed By: #### P OCGLUC #### [facility] [address] [address] [address] Yash Mckeon MgHPO4 (Newberyite) Normal [facility] Comment on above: Performed By: #### P OCGLUC #### [facility] [address] [place] [address] Dr. Yash Mckeon Other component(s) Normal [facility] Comment on above: Performed By: #### P OCGLUC #### [facility] [address] [address] [address] Yash Mckeon PDF . [facility] Comment on above: Performed By: #### P OCGLUC #### [facility] [address] [place] [address] Dr. Yash Mckeon Photo TNP [facility] Comment on above: Result Comment: Test not performed No photo available Performed By: #### P OCGLUC #### [facility] [address] [address] [address] Yash Mckeon Please note: Comment Normal [facility] [place] [facility] Comment on above: Result Comment: Calc terry report will follow via computer, mail or city bus driver delivery. Performed By: #### P OCGLUC #### [facility] [address] [address] [address] Yash Mckeon Size <1 [facility] Comment on above: Result Comment: Too small to measure. Performed By: #### P OCGLUC #### [facility] [address] [address] [address] Yash Mckeon Sodium Acid Urate [facility] Comment on above: Performed By: #### P OCGLUC #### [facility] [address] [address] [address] Yash Mckeon Source Comment [facility] Comment on above: Result Comment: Not provided Performed By: #### P OCGLUC #### [facility] [address] [address] [address] Yash Mckeon Triamterene [facility] Comment on above: Performed By: #### P OCGLUC #### [facility] [address] [address] [address] Yash Mckeon Uric Acid [facility] Comment on above: Performed By: #### P OCGLUC #### [facility] [address] [address] [address] Yash Mckeon Uric Acid Dihydrate Normal [facility] Comment on above: Performed By: #### P OCGLUC #### [facility] [address] [address] [address] Yash Mckeon Weight <1 [facility] Comment on above: Result Comment: Too small to weigh Performed By: #### P OCGLUC #### [facility] [address] [address] [address] Yash Mckeon Xanthine [facility] Comment on above: Performed By: #### P OCGLUC #### [facility] [address] [address] [address] Yash Mckeon CBC AUTO DIFFon 04-04-2022 BASO # 0.1 103/ul Normal 0.0-0.1 [facility] [place] [facility] Comment on above: Performed By: #### C BC #### [facility] [address] [address] [address] Yash Mckeon Basophils/100 WBC (Bld) 0.9 % Normal 0.2-2.0 [facility] [place] [facility] Comment on above: Performed By: #### C BC #### [facility] [address] [address] [address] Yash Mckeon EO # 0.4 103/ul Normal 0.0-0.7 [facility] [place] [facility] Comment on above: Performed By: #### C BC #### [facility] [address] [place] [address] Dr. Yash Mckeon Eosinophils/100 WBC (Bld) 3.3 % Normal 0.9-7.0 [facility] [place] [facility] Comment on above: Performed By: #### C BC #### [facility] [address] [place] [address] Dr. Yash Mckeon Erythrocyte distribution width (RBC) [Ratio] 13.8 % Normal 11.0-15.0 [facility] [place] [facility] Comment on above: Performed By: #### C BC #### [facility] [address] [place] [address] Dr. Yash Mckeon Hematocrit (Bld) [Volume fraction] 48.7 % Normal 42.0-54.0 [facility] [place] [facility] Comment on above: Performed By: #### C BC #### [facility] [address] [place] [address] Dr. Yash Mckeon Hemoglobin (Bld) [Mass/Vol] 16.1 g/dL Normal 14.0-18.0 [facility] [place] [facility] Comment on above: Performed By: #### C BC #### [facility] [address] [place] [address] Dr. Yash Mckeon IG # 0.06 10e3/ul Critically high 0.00-0.03 [facility] Comment on above: Performed By: #### C BC #### [facility] [address] [place] [address] Dr. Yash Mckeon IG % 0.5 % Normal 0.0-0.5 [facility] [place] [facility] Comment on above: Performed By: #### C BC #### [facility] [address] [place] [address] Dr. Yash Mckeon LYMPH # 4.1 103/ul Critically high 1.2-3.8 [facility] Comment on above: Performed By: #### C BC #### [facility] [address] [place] [address] Dr. Yash Mckeon Lymphocytes/100 WBC (Bld) 33.3 % Normal 20.5-60.0 [facility] [place] [facility] Comment on above: Performed By: #### C BC #### [facility] [address] [place] [address] Dr. Yash Mckeon MANUAL DIFF REQ NO Normal [facility] Comment on above: Performed By: #### C BC #### [facility] [address] [place] [address] Dr. Yash Mckeon MCH (RBC) [Entitic mass] 29.0 pg Normal 25.9-34.0 [facility] [place] [facility] Comment on above: Performed By: #### C BC #### [facility] [address] [place] [address] Dr. Yash Mckeon MCHC (RBC) [Mass/Vol] 33.1 g/dL Normal 29.9-35.2 [facility] [place] [facility] Comment on above: Performed By: #### C BC #### [facility] [address] [place] [address] Dr. Yash Mckeon MCV (RBC) [Entitic vol] 87.6 fL Normal 80.0-94.0 [facility] [place] [facility] Comment on above: Performed By: #### C BC #### [facility] [address] [place] [address] Dr. Yash Mckeon MONO # 1.0 103/ul Critically high 0.3-0.8 [facility] Comment on above: Performed By: #### C BC #### [facility] [address] [place] [address] Dr. Yash Mckeon Monocytes/100 WBC (Bld) 8.2 % Normal 1.7-12.0 [facility] [place] [facility] Comment on above: Performed By: #### C BC #### [facility] [address] [place] [address] Dr. Yash Mckeon NEUT # 6.6 103/ul Critically high 1.4-6.5 [facility] Comment on above: Performed By: #### C BC #### [facility] [address] [place] [address] Dr. Yash Mckeon Neutrophils/100 WBC (Bld) 53.8 % Normal 43.0-75.0 [facility] [place] [facility] Comment on above: Performed By: #### C BC #### [facility] [address] [place] [address] Dr. Yash Mckeon Platelet mean volume (Bld) [Entitic vol] 10.5 fL Normal 9.5-13.5 [facility] [place] [facility] Comment on above: Performed By: #### C BC #### [facility] [address] [place] [address] Dr. Yash Mckeon PLT 260 103/ul Normal 150-450 [facility] Comment on above: Performed By: #### C BC #### [facility] [address] [place] [address] Dr. Yash Mckeon RBC 5.56 106/ul Normal 4.70-6.10 [facility] Comment on above: Performed By: #### C BC #### [facility] [address] [place] [address] Dr. Yash Mckeon WBC 12.2 103/ul Critically high 4.0-11.0 [facility] Comment on above: Performed By: #### C BC #### [facility] [address] [place] [address] ABD/PELVIS WO CONon [...] JUANITA DYKES Date: 2022-04-04 08:43 Normal [facility] CULTURE URINEon 04-04-2022 CULTURE URINE Culture Observations : LIGHT GROWTH OF MIXED SKIN BRIANNA. NO POTENTIAL PATHOGENS SEEN. Normal [facility] Comment on above: Performed By: #### P OCGLUC #### [facility] [address] [place], [place] [address] Dr. Yash Mckeon ER URINE PROFILEon 2 Bilirubin Ql (U) Negative Normal NEGATIVE [facility] Comment on above: Performed By: #### E KALEIGH KELLEY #### [facility] [address] [place], [place] [address] Dr. Yash Mckeon Clarity (U) SL CLOUDY Abnormal CLEAR [facility] Comment on above: Performed By: #### E KALEIGH KELLEY #### [facility] [address] [place] [address] Dr. Yash Mckeon Color (U) BROWN Abnormal YELLOW [facility] Comment on above: Performed By: #### SUNIL STEPHENSRO #### [facility] [address] [place] [address] Dr. Yash DUBOSE A micrscopic examination will be performed if indicated. Normal [facility] Comment on above: Performed By: #### SUNIL STEPHENSRO #### [facility] [address] [place] [address] Dr. Yash Mckeon Glucose Ql (U) 100 mg/dl Abnormal NEGATIVE [facility] Comment on above: Performed By: #### SUNIL STEPHENSRO #### [facility] [address] [place] [address] Dr. Yash Mckeon Hemoglobin Ql (U) LARGE Abnormal NEGATIVE [facility] Comment on above: Performed By: #### SUNIL STEPHENSRO #### [facility] [address] [place] [address] Dr. Yash Mckeon Ketones Ql (U) TRACE Abnormal NEGATIVE [facility] Comment on above: Performed By: #### SUNIL STEPHENSRO #### [facility] [address] [place] [address] Dr. Yash Mckeon LEUKOCYTES Negative Normal NEGATIVE [facility] [place] [facility] Comment on above: Performed By: #### SUNIL STEPHENSRO #### [facility] [address] [place] [address] Dr. Yash Mckeon Nitrite Ql (U) Positive Abnormal NEGATIVE [facility] Comment on above: Performed By: #### SUNIL STEPHENSRO #### [facility] [address] [place] [address] Dr. Yash Mckeon pH (U) 5.0 [pH] Normal 5-9 [facility] Comment on above: Performed By: #### SUNIL STEPHENSRO #### [facility] [address] [place] [address] Dr. Yash Mckeon Protein (U) [Mass/Vol] 100 mg/dL Abnormal NEGATIVE/ TRACE [facility] Comment on above: Performed By: #### E SUNIL KELLEYRO #### [facility] [address] [place] [address] Dr. Yash Mckeon SPEC GRAVITY >=1.030 Abnormal 1.005-<=1.02 5 [facility] [place] [facility] Comment on above: Performed By: #### SUNIL STEPHENSRO #### [facility] [address] [place] [address] Dr. Yash Mckeon UR MICRO IND INDICATED Normal [facility] [place] [facility] Comment on above: Performed By: #### SUNIL STEPHENSRO #### [facility] [address] [place] [address] Dr. Yash Mckeon Urobilinogen Qn (U) 1.0 {Nathaniel'U}/dL Normal 0.2 - 1. 0 [facility] [place] [facility] Comment on above: Performed By: #### SUNIL STEPHENSRO #### [facility] [address] [place] [address] Dr. Yash Mckeon PROF CHEM 8 (BAS METB)on Anion gap [Moles/Vol] 16.0 mmol/L Normal [facility] [place] [facility] Comment on above: Performed By: #### B MP #### [facility] [address] [place] [address] Dr. Yash Mckeon Calcium [Mass/Vol] 8.5 mg/dL Normal 8.5-10.1 [facility] Comment on above: Performed By: #### B MP #### [facility] [address] [place] [address] Dr. Yash Mckeon Chloride [Moles/Vol] 102 mmol/L Normal 98-107 [facility] Comment on above: Performed By: #### B MP #### [facility] [address] [place] [address] Dr. Yash Mckeon CO2 [Moles/Vol] 23.6 mmol/L Normal 21.0-32.0 [facility] Comment on above: Performed By: #### B MP #### [facility] [address] [place] [address] Dr. Yash Mckeon Creatinine [Mass/Vol] 1.17 mg/dL Normal 0.70-1.30 [facility] [place] [facility] Comment on above: Performed By: #### B MP #### [facility] [address] [address] [address] Yash Mckeon EGFR-AF TUNISIAN >60 Normal >=60 [facility] Comment on above: Performed By: #### B MP #### [facility] [address] [address] [address] Yash Mckeon EGFR-NON AF TUNISIAN >60 Normal >=60 [facility] [place] [facility] Comment on above: Performed By: #### B MP #### [facility] [address] [address] [address] Yash Mckeon Glucose [Mass/Vol] 234 mg/dL Critically high 74-106 [facility] Comment on above: Performed By: #### B MP #### [facility] [address] [address] [address] Yash Mckeon Potassium [Moles/Vol] 3.6 mmol/L Normal 3.5-5.1 [facility] [place] [facility] Comment on above: Performed By: #### B MP #### [facility] [address] [address] [address] Yash Mckeon Sodium [Moles/Vol] 138 mmol/L Normal 136-145 [facility] Comment on above: Performed By: #### B MP #### [facility] [address] [address] [address] Yash Mckeon Urea nitrogen [Mass/Vol] 8.0 mg/dL Normal 7.0-18.0 [facility] [place] [facility] Comment on above: Performed By: #### B MP #### [facility] [address] [address] [address] Yash Mckeon Urea nitrogen/Creatinine [Mass ratio] 6.8 mg/mg Normal [facility] [place] [facility] Comment on above: Performed By: #### B MP #### [facility] [address] [address] [address] Yash Mckeon URINE MICROSCOPIC ONLYon BACTERIA TRACE Abnormal NONE SEEN [facility] [place] [facility] Comment on above: Performed By: #### Vincenzo KELLEY UMICRO #### [facility] [address] [place] [address] Dr. Yash Mckeon Bacteria identified Cx Nom (U) INDICATED Normal [facility] Comment on above: Performed By: #### Vincenzo KELLEY UMICRO #### [facility] [address] [place] [address] Dr. Yash Mckeon CAST NONE SEEN Normal NONE SEEN [facility] [place] [facility] Comment on above: Performed By: #### Vincenzo KELLEY UMICRO #### [facility] [address] [place] [address] Dr. Yash Mckeon Crystals LM Nom (Urine sed) NONE SEEN Normal NONE SEEN [facility] [place] [facility] Comment on above: Performed By: #### Vincenzo KELLEY UMICRO #### [facility] [address] [place] [address] Dr. Yash Mckeon Epithelial cells LM Ql (Urine sed) RARE Normal NONE SEEN /RARE [facility] Comment on above: Performed By: #### Vincenzo KELLEY UMICRO #### [facility] [address] [place] [address] Dr. Yash Mckeon MUCOUS NONE SEEN Normal NONE SEEN [facility] [place] [facility] Comment on above: Performed By: #### Vincenzo KELLEY UMICRO #### [facility] [address] [place] [address] Dr. Yash Mckeon RBC 20-50 Abnormal 0-2 [facility] [place] [facility] Comment on above: Performed By: #### Vincenzo KELLEY UMICRO #### [facility] [address] [place] [address] Dr. Yash Mckeon WBC 0-2 Abnormal NONE SEEN [facility] [place] [facility] Comment on above: Performed By: #### Vincenzo KELLEY UMICRO #### [facility] [address] [place] [address] Dr. Yash Mckeon CBC AUTO DIFFon 02-17-2022 BASO # 0.1 103/ul Normal 0.0-0.1 [facility] [place] [facility] Comment on above: Performed By: #### C BC #### [facility] [address] [place] [address] Dr. Yash Mckeon Basophils/100 WBC (Bld) 0.7 % Normal 0.2-2.0 [facility] [place] [facility] Comment on above: Performed By: #### C BC #### [facility] [address] [place] [address] Dr. Yash Mckeon EO # 0.2 103/ul Normal 0.0-0.7 [facility] [place] [facility] Comment on above: Performed By: #### C BC #### [facility] [address] [place] [address] Dr. Yash Mckeon Eosinophils/100 WBC (Bld) 1.6 % Normal 0.9-7.0 [facility] [place] [facility] Comment on above: Performed By: #### C BC #### [facility] [address] [place] [address] Dr. Yash Mckeon Erythrocyte distribution width (RBC) [Ratio] 14.3 % Normal 11.0-15.0 [facility] [place] [facility] Comment on above: Performed By: #### C BC #### [facility] [address] [place] [address] Dr. Yash Mckoen Hematocrit (Bld) [Volume fraction] 47.1 % Normal 42.0-54.0 [facility] [place] [facility] Comment on above: Performed By: #### C BC #### [facility] [address] [place] [address] Dr. Yash Mckeon Hemoglobin (Bld) [Mass/Vol] 15.7 g/dL Normal 14.0-18.0 [facility] [place] [facility] Comment on above: Performed By: #### C BC #### [facility] [address] [place] [address] Dr. Yash Mckeon IG # 0.05 10e3/ul Critically high 0.00-0.03 [facility] Comment on above: Performed By: #### C BC #### [facility] [address] [place] [address] Dr. Yash Mckeon IG % 0.5 % Normal 0.0-0.5 [facility] [place] [facility] Comment on above: Performed By: #### C BC #### [facility] [address] [place] [address] Dr. Yash Mckeon LYMPH # 2.9 103/ul Normal 1.2-3.8 [facility] [place] [facility] Comment on above: Performed By: #### C BC #### [facility] [address] [place] [address] Dr. Yash Mckeon Lymphocytes/100 WBC (Bld) 29.8 % Normal 20.5-60.0 [facility] [place] [facility] Comment on above: Performed By: #### C BC #### [facility] [address] [place] [address] Dr. Yash Mckeon MANUAL DIFF REQ NO Normal [facility] Comment on above: Performed By: #### C BC #### [facility] [address] [place] [address] Dr. Yash Mckeon MCH (RBC) [Entitic mass] 29.2 pg Normal 25.9-34.0 [facility] [place] [facility] Comment on above: Performed By: #### C BC #### [facility] [address] [place] [address] Dr. Yash Mckeon MCHC (RBC) [Mass/Vol] 33.3 g/dL Normal 29.9-35.2 [facility] [place] [facility] Comment on above: Performed By: #### C BC #### [facility] [address] [place] [address] Dr. Yash Mckeon MCV (RBC) [Entitic vol] 87.7 fL Normal 80.0-94.0 [facility] [place] [facility] Comment on above: Performed By: #### C BC #### [facility] [address] [place] [address] Dr. Yash Mckeon MONO # 0.7 103/ul Normal 0.3-0.8 [facility] Comment on above: Performed By: #### C BC #### [facility] [address] [place] [address] Dr. Yash Mckeon Monocytes/100 WBC (Bld) 6.8 % Normal 1.7-12.0 [facility] [place] [facility] Comment on above: Performed By: #### C BC #### [facility] [address] [place] [address] Dr. Yash Mckeon NEUT # 5.9 103/ul Normal 1.4-6.5 [facility] [place] [facility] Comment on above: Performed By: #### C BC #### [facility] [address] [place] [address] Dr. Yash Mckeon Neutrophils/100 WBC (Bld) 60.6 % Normal 43.0-75.0 [facility] [place] [facility] Comment on above: Performed By: #### C BC #### [facility] [address] [place] [address] Dr. Yash Mckeon Platelet mean volume (Bld) [Entitic vol] 10.3 fL Normal 9.5-13.5 [facility] [place] [facility] Comment on above: Performed By: #### C BC #### [facility] [address] [place] [address] Dr. Yash Mckeon PLT 240 103/ul Normal 150-450 [facility] [place] [facility] Comment on above: Performed By: #### C BC #### [facility] [address] [place] [address] Dr. Yash Mckeon RBC 5.37 106/ul Normal 4.70-6.10 [facility] [place] [facility] Comment on above: Performed By: #### C BC #### [facility] [address] [place] [address] Dr. Yash Mckeon WBC 9.8 103/ul Normal 4.0-11.0 [facility] [place] [facility] Comment on above: Performed By: #### C BC #### [facility] [address] [place] [address] Dr. Yash Mckeon Covid-19 PCR ([facility])on 01-23 SARS-CoV-2 (COVID-19) RNA TALIB+probe Ql (Unsp spec) Not detected Normal NOT DETECTED [facility] Comment on above: Result Comment: When diagnostic [...] for this test is supported by the [place] of Health and Human Service's declaration that [...] used). Performed By: #### C VDTBH #### [facility] [address] [place] [address] Dr. Yash Mckeon D-DIMERon 02-17-2022 D-DIMER <0.19 Normal <=0.59 [facility] Comment on above: Performed By: #### D DIM #### [facility] [address] [place] [address] Dr. Yash Mckeon D-DIMER COMMENTS SEE BELOW Normal [facility] Comment on above: Result Comment: Incr [...] hospitalization. Performed By: #### D DIM #### [facility] [address] [place] [address] Dr. Yash Mckeon PROF CHEM 8 (BAS METB)on Anion gap [Moles/Vol] 13.0 mmol/L Normal [facility] Comment on above: Performed By: #### P OCGLUC #### [facility] [address] [place] [address] Dr. Yash Mckeon Calcium [Mass/Vol] 9.2 mg/dL Normal 8.5-10.1 [facility] Comment on above: Performed By: #### P OCGLUC #### [facility] [address] [place] [address] Dr. Yash Mckeon Chloride [Moles/Vol] 102 mmol/L Normal 98-107 [facility] [place] [facility] Comment on above: Performed By: #### P OCGLUC #### [facility] [address] [address] [address] Yash Mckeon CO2 [Moles/Vol] 28.2 mmol/L Normal 21.0-32.0 [facility] Comment on above: Performed By: #### P OCGLUC #### [facility] [address] [address] [address] Yash Mckeon Creatinine [Mass/Vol] 1.10 mg/dL Normal 0.70-1.30 [facility] [place] [facility] Comment on above: Performed By: #### P OCGLUC #### [facility] [address] [address] [address] Yash Mckeon EGFR-AF TUNISIAN >60 Normal >=60 [facility] Comment on above: Performed By: #### P OCGLUC #### [facility] [address] [address] [address] Yash Mckeon EGFR-NON AF TUNISIAN >60 Normal >=60 [facility] [place] [facility] Comment on above: Performed By: #### P OCGLUC #### [facility] [address] [address] [address] Yash Mckeon Glucose [Mass/Vol] 174 mg/dL Critically high 74-106 [facility] Comment on above: Performed By: #### P OCGLUC #### [facility] [address] [address] [address] Yash Mckeon Potassium [Moles/Vol] 4.2 mmol/L Normal 3.5-5.1 [facility] [place] [facility] Comment on above: Performed By: #### P OCGLUC #### [facility] [address] [address] [address] Yash Mckeon Sodium [Moles/Vol] 139 mmol/L Normal 136-145 [facility] Comment on above: Performed By: #### P OCGLUC #### [facility] [address] [address] [address] Yash Mckeon Urea nitrogen [Mass/Vol] 12.0 mg/dL Normal 7.0-18.0 [facility] [place] [facility] Comment on above: Performed By: #### P OCGLUC #### [facility] [address] [place], [place] [address] Dr. Yash Mckeon Urea nitrogen/Creatinine [Mass ratio] 10.9 mg/mg Normal [facility] [place] [facility] Comment on above: Performed By: #### P OCGLUC #### [facility] [address] [place], [place] [address] Dr. Yash Mckeon TROPONIN, HIGH SENSITIVITYon 02-17-2022 HSTROP <4.0 Normal 4.0-76.1 [facility] [place] [facility] Comment on above: Result Comment: CUT- OFF POINTS HAVE BEEN ESTABLISHED BASED ON THE FOURTH UNIVERSAL DEFINITIONS OF MYOCARDIAL INFARCTION. THE UPPER REFERENCE LIMIT (URL) OF TROPONIN, DEFINED THE 99TH PERCENTILE OF cTnI DISTRIBUTION IN A REFERENCE POPULATION, HAS BEEN CONFIRMED THE DECISION THRESHOLD FOR VT DIAGNOSIS. Performed By: #### P OCGLUC #### [facility] [address] [address] [address] Yash Mckeon XR RIBS RT PA [...] by: JUANITA DYKES Date: 2022-02-17 15:26 Normal [facility] [place] [facility] BASIC METABOLIC PANELon 08-25 Anion gap [Moles/Vol] 17 mmol/L Normal 10 - 20 [facility] Comment on above: Performed By: #### B MP #### [facility] [address] [place] [address] Calcium [Mass/Vol] 8.7 mg/dL Normal 8.6 - 10.3 [facility] Comment on above: Performed By: #### B MP #### [address] [address] Chloride [Moles/Vol] 103 mmol/L Normal 98 - 107 [facility] Comment on above: Performed By: #### B MP #### [address] [address] Creatinine [Mass/Vol] 0.88 mg/dL Normal 0.50 - 1.30 [facility] Comment on above: Performed By: #### B MP #### [address] [address] GFR- AM. >60 Normal >60 [facility] Comment on above: Result Comment: CALC ULATIONS OF ESTIMATED GFR ARE PERFORMED USING THE MDRD STUDY EQUATION FOR THE IDMS-TRACEABLE CREATININE METHODS. CLIN CHEM 2007;53:766-72 Performed By: #### B MP #### [address] [address] GFR-NON AM. >60 Normal >60 [facility] Comment on above: Performed By: #### B MP #### [address] [address] Glucose [Mass/Vol] 252 mg/dL High 74 - 99 [facility] Comment on above: Performed By: #### B MP #### [address] [address] HCO3 (Bld) [Moles/Vol] 19 mmol/L Low 21 - 32 [facility] Comment on above: Performed By: #### B MP #### [address] [address] Potassium [Moles/Vol] 4.1 mmol/L Normal 3.5 - 5.3 [facility] Comment on above: Performed By: #### B MP #### [address] [address] Sodium [Moles/Vol] 135 mmol/L Low 136 - 145 [facility] Comment on above: Performed By: #### B MP #### [address] [address] Urea nitrogen [Mass/Vol] 13 mg/dL Normal 6 - 23 [facility] Comment on above: Performed By: #### B MP #### [facility] [address] [place] [address] GLUCOSE-POCTon 09-05-2020 Glucose [Mass/Vol] 276 mg/dL High 74 - 99 [facility] Comment on above: Performed By: #### G LATA #### [facility] [address] [place] [address] History and Physical - Surgi kellie Update [...] Last Updated: 05-Sep-2020 11:26 by Nicky Swartz) [facility] Operative Reports - Nahmaon 09-05-2020 Operative Reports - Nahma PREOPERATIVE INDICATION: Phimosis. PREOPERATIVE DIAGNOSIS: Phimosis. POSTOPERATIVE [...] NICKY SWARTZ MD EST EST DICTATION NUMBER: [id number] INTERNAL JOB NUMBER: [id number] Electronic Signatures: Nicky Swartz) (Signed on 15-Sep-2020 07:34) Authored Unsigned, Draft (SYS GENERATED) (Entered on 06-Sep-2020 07:26) Entered Last Updated: 15-Sep-2020 07:34 by Nicky Swartz) [facility] Order Reconciliationon 09-05 Order Reconciliation Page 1 Discharge Reconciliation Document Reconciliation Type: Discharge requested on behalf of Radha Madrigal (Physician) done by Radha Madrigal ( (Fellow)) Discharge - Reconciliation: 05-Sep-2020 12:55 by: Radha Madrigal ( (Fellow)) [facility] DateReconciliation Comment/ Additional Information [...] be shared with your follow-up providers (doctor, risk control officer, physical therapist, etc.). Follow Up with in [...] be shared with your follow-up providers (doctor, risk control officer, physical therapist, etc.). Follow Up with in [...] but has not started this yet Normal [facility] Histologyon 09-05-2020 [place] Histology Name BRIAN TSESandra Pathologist: CHRIS MACEDO [...] 2.5 x 0.5 x 0.5 cm respectively. Medical Cash Poster sections are submitted in 1 cassette. TNB tnb/09/05/2020 [facility] Department of Pathology [address] [facility] [place] [address] Normal [facility] Comment on above: Performed By: #### P #### [facility] [address] [address] [facility] [address] Preop Checkliston 09-05-2020 Preop Checklist Preop Checklist: Preop Checklist: Arrival [id number] Arrival Time09:42 Procedure TypeCIRCUMCISION Temperature C36.2 degrees C Temperature F97.1 degrees F Heart Rate70 beats per minute Respiratory Rate18 breath per minute Blood Pressure Eqrijvee411 mm/Hg Blood Pressure Lxagfozqq88 mm/Hg ID Band Onyes Allergy Bandno known [...] 05-Sep-2020 09:48 by Zainab Laguna (SUKHJINDER) Normal [facility] URINE CULTURE,BACTERIALon URINE CULTURE,BACTERIAL PATIENT: BRIAN TSE LOCATION: [facility] BILL#: [id number] : 82 AGE: SEX: M ORDERED BY: NICKY SWARTZ SOURCE: URINE COLLECTED: 09/05/20 08:16 ANTIBIOTICS AT REINA.: RECEIVED : 09/05/20 11:32 SITE: R E S U L T S URINE CULTURE,BACTERIAL FINAL 09/06/20 07:51 NO SIGNIFICANT GROWTH. Normal [facility] Comment on above: Performed By: #### U RINC #### [address] [place] [address] CORONAVIRUS 2019, SCREEN ASY MPTOMATICon 09-03-2020 CORONAVIRUS 2019,PCR NOT DETECTED Normal Not Detected [facility] Comment on above: Result Comment: . This [...] patient management decisions. Fact sheet for providers: https://www.fda.gov/media/189723/download Fact sheet for patients: https://www.fda.gov/media/840748/download This test has received FDA Emergency Use Authorization (EUA) and has been verified by [facility] ([facility]). This test is only authorized for the duration of time that circumstances exist to justify the authorization of the emergency use of in vitro diagnostic tests for the detection of SARS-CoV-2 virus and/or diagnosis of COVID-19 infection under section 564(b)(1) of the Act, 21 U.S.C. 360bbb-3(b)(1), unless the authorization is terminated or revoked sooner. [facility] is certified under CLIA-88 as qualified to perform high complexity testing. Testing is performed in the [facility] laboratories located at [address] [place] [address]. Performed By: #### C OVSC #### [place] [address] Lab Specimen Source Nasal, Nasopharyngeal Normal [facility] Comment on above: Performed By: #### C OVSC #### [facility] [address] [place] [address] Covid 19 Resultson 1 Covid 19 Results [...] may also be contacted by the [facility] to see if any of [...] or Naproxen (Aleve) can also be used. Zibt-sfg-wdtxsep cough and cold medicines can be used according to the instructions on the package. Some fujo-syr-vadlgrs medicines also contain acetaminophen. Make sure you [...] water are not available, use alcohol-based hand turn down worker. Avoid touching your eyes, nose, and mouth [...] a total of 10 days. Additional resources: [facility] COVID Hotline at 4-933-4OJISHB ( ). COVID-19 Careline at (availabl e 24 hours per day, seven days a week if you or a loved one is experiencing anxiety related to the coronavirus pandemic). Clinical research opportunities: is conducting research studies to develop better testing and treatments for COVID. Do you want any information on how to participate Call [phone]. Websites: hospitals.org or www.CDC.gov Follow My Health / My UHCare (for other test results): Revised 06/10/2020 Electronic Signatures: [employer], [employer] (ADMIN) (Signature pending) Authored Last Updated: 03-Sep-2020 21:24 by [employer], [employer] (ADMIN) Normal [facility] CNOVon 10-14-2017 CNOV Office Visit (LOORRM) JOSE A REIDBRIAN Winters ([id number]) 1980 MDate Time Provider Department10/14/17 11:00 AM [...] 60 tabletRfl: 1 CONSULT TO PHYSICAL THERAPY [9026] Order #: [id number]: 1Prescriptions as of 10/14/2017 Sig: ATORVASTATIN 10 [...] Historical Med Sig: Disc: Erroneous entryEncounter Number: [id number] Status:Closed by NAHOMY SHARP PA-C on 10/14/17 [facility] 10-14-2017 PROGRESS HNO ID: [id number]: Nahomy Sharp (Pa)Service: (none)Author Type: Physician AssistantType: [...] fileFAMILY HISTORY:No family history on file. Normal [facility] PROGRESS HNO ID: [id number]: Nahomy Sharp (Pa)Service: Orthopaedic SurgeryAuthor Type: Physician AssistantType: Progress NotesFiled: 10/20/2017 3:42 PMNote Text: [facility] [address] [place], [place] [address] CLINIC NOTE Department of Orthopaedics - CYNTHIA KeitaCNAME: BRIAN TSE NO.: [id number] OF SERVICE: 10/14/2017CHIEF COMPLAINT: Right shoulder pain.HISTORY [...] doeshelp some temporarily. He was initially at [facility] through a familyphysician and x-rays were obtained followed by an MRI. He is here todayfor further evaluation and discussion of treatment. He is pwdb-saskkwk-liqgrtqfs diabetic who was under poor control several [...] lifting anything heavy. 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 They show some AC joint arthritis. Goodacromiohumeral distance. No significant glenohumeral arthritis. Noevidence of fracture. No other osseous abnormalities.MRI: MRI dated 10/01/2017 from [facility] shows a mildrotator cuff tendinosis, but [...] for physical therapy, which [facility] will doat [facility] [place] for 4-6 weeks. Will follow up in 6 weeks jagruti. Discussed possibly a cortisone injection at that time ifnecessary. Declines today as he does not like needles.Dictated By: Pepe Zurita Dictated: 10/19/2017Date Typed: daria 10/19/2017JOB# [id number] Normal [facility] SR-MRI Shoulder w/o Contrast Right IMPORTon 10-01-2017 SR-MRI Shoulder w/o Contrast Right IMPORT Images were obtained outside of [facility] [id number] Normal [facility] SR-XR Shoulder Complete Righ t IMPORTon 09-13-2017 SR-XR Shoulder Complete Right IMPORT Images were obtained outside of [facility] [id number] Normal [facility] Vital Signs Date Time Vital Sign Value Performing Clinician Facility 05-07-2024 14:57-0400 Body height 180.3 cm Don Santos DPM FACFAS Work Phone: [facility] 05-07-2024 14:57-0400 Body mass index (BMI) [Ratio] 33.61 kg/m2 Don Santos DPM FACFAS Work Phone: [facility] 05-07-2024 14:57-0400 Body weight 109.32 kg Don Santos DPM FACFAS Work Phone: [facility] 05-07-2024 14:57-0400 Diastolic blood pressure 79 mm[Hg] Don Santos DPM FACFAS Work Phone: [facility] 05-07-2024 14:57-0400 Heart rate 74 /min Don Santos DPM FACFAS Work Phone: [facility] 05-07-2024 14:57-0400 Systolic blood pressure 128 mm[Hg] Don Santos DPM FACFAS Work Phone: [facility] 02-14-2024 16:11-0400 Body temperature 98.78 [degF] [facility] 02-14-2024 16:11-0400 Diastolic blood pressure 86 mm[Hg] [facility] 02-14-2024 16:11-0400 Heart rate 79 /min [facility] 02-14-2024 16:11-0400 Respiratory rate 18 /min [facility] 02-14-2024 16:11-0400 SaO2% (BldA) [Mass fraction] 98 % [facility] 02-14-2024 16:11-0400 Systolic blood pressure 131 mm[Hg] [facility] 2023 11:48-0400 Body height 176.5 cm Yuko Waite INDUSTRIAL GAS SERVICER SUPERVISOR-TRAFFIC SIGNAL TECHNICIAN Work Phone: [facility] 2023 11:48-0400 Body mass index (BMI) [Ratio] 31.16 kg/m2 Yuko Waite INDUSTRIAL GAS SERVICER SUPERVISOR-TRAFFIC SIGNAL TECHNICIAN Work Phone: [facility] 2023 11:48-0400 Body temperature 98.1 [degF] Yuko Waite INDUSTRIAL GAS SERVICER SUPERVISOR-TRAFFIC SIGNAL TECHNICIAN Work Phone: [facility] 2023 11:48-0400 Body weight 97.07 kg Yuko Waite INDUSTRIAL GAS SERVICER SUPERVISOR-TRAFFIC SIGNAL TECHNICIAN Work Phone: [facility] 2023 11:48-0400 Diastolic blood pressure 74 mm[Hg] Yuko Waite INDUSTRIAL GAS SERVICER SUPERVISOR-TRAFFIC SIGNAL TECHNICIAN Work Phone: [facility] 2023 11:48-0400 Heart rate 65 /min Yuko Ravindra INDUSTRIAL GAS SERVICER SUPERVISOR-TRAFFIC SIGNAL TECHNICIAN Work Phone: [facility] 2023 11:48-0400 SaO2% (BldA) [Mass fraction] 99 % Yuko Waite INDUSTRIAL GAS SERVICER SUPERVISOR-TRAFFIC SIGNAL TECHNICIAN Work Phone: [employer] 2023 11:48-0400 Systolic blood pressure 124 mm[Hg] Yuko Waite INDUSTRIAL GAS SERVICER SUPERVISORTRAFFIC SIGNAL TECHNICIAN Work Phone: [employer] 01-06-2023 10:25-0400 Body height 177.8 cm Georgia Del Cid Other [facility] Other 01-06-2023 10:25-0400 Body mass index (BMI) [Ratio] 31.1 kg/m2 Georgia Del Cid Other [facility] Other 01-06-2023 10:25-0400 Body temperature 98.7 [degF] [facility] Del [facility] Other [facility] Other 01-06-2023 10:25-0400 Body weight 98.34 kg Georgia Del Cid Other [facility] Other 01-06-2023 10:25-0400 Diastolic blood pressure 88 mm[Hg] [facility] Del Cid Other [facility] Other 01-06-2023 10:25-0400 Respiratory rate 18 /min [facility] Del [facility] Other [facility] Other 01-06-2023 10:25-0400 SaO2% (BldA) [Mass fraction] 98 % [facility] Del Cid Other [facility] Other 01-06-2023 10:25-0400 Systolic blood pressure 136 mm[Hg] [facility] Del [facility]id Other [facility] Other 05-20-2022 16:12-0400 Blood Pressure Location Nicky CHRISTINA [facility] [place] [facility] 05-20-2022 16:12-0400 Body temperature 98.06 [degF] Nicky NILL [facility] [place] [facility] 05-20-2022 16:12-0400 Diastolic blood pressure 74 mm[Hg] Nicky NILL [facility] [place] [facility] 05-20-2022 16:12-0400 Heart rate 79 /min Nicky NILL [facility] [place] [facility] 05-20-2022 16:12-0400 Mean blood pressure 85 mm[Hg] Nicky NILL [facility] [place] [facility] 05-20-2022 16:12-0400 Respiratory rate 16 /min Nicky NILL [facility] [place] [facility] 05-20-2022 16:12-0400 SaO2% (BldA) [Mass fraction] 96 % Nicky NILL [facility] [place] [facility] 05-20-2022 16:12-0400 Systolic blood pressure 106 mm[Hg] Incky NILL [facility] [place] [facility] 05-20-2022 14:41-0400 Blood Pressure Location Nicky NILL [facility] [place] [facility] 05-20-2022 14:41-0400 Body temperature 98.06 [degF] Nicky NILL [facility] [place] [facility] 05-20-2022 14:41-0400 Diastolic blood pressure 83 mm[Hg] Nicky NILL [facility] [place] [facility] 05-20-2022 14:41-0400 Heart rate 70 /min Nicky NILL [facility] [place] [facility] 05-20-2022 14:41-0400 Respiratory rate 16 /min Nicky NILL [facility] [place] [facility] 05-20-2022 14:41-0400 SaO2% (BldA) [Mass fraction] 99 % Nicky NILL [facility] [place] [facility] 05-20-2022 14:41-0400 Systolic blood pressure 135 mm[Hg] Nicky NILL [facility] [place] [facility] 05-20-2022 14:38-0400 Body temperature 97.52 [degF] Nicky NILL [facility] [place] [facility] 05-20-2022 14:38-0400 Diastolic blood pressure 85 mm[Hg] Nicky NILL [facility] [place] [facility] 05-20-2022 14:38-0400 Heart rate 67 /min Nicky NILL [facility] [place] [facility] 05-20-2022 14:38-0400 Respiratory rate 14 /min Nicky NILL [facility] [place] [facility] 05-20-2022 14:38-0400 SaO2% (BldA) [Mass fraction] 100 % Nicky NILL [facility] [place] [facility] 05-20-2022 14:38-0400 Systolic blood pressure 122 mm[Hg] Nicky NILL [facility] [place] [facility] 05-20-2022 14:25-0400 Respiratory rate 11 /min Nicky NILL [facility] [place] [facility] 05-20-2022 14:15-0400 Respiratory rate 15 /min Nicky NILL [facility] [place] [facility] 05-20-2022 13:41-0400 Blood Pressure Location Nicky NILL [facility] [place] [facility] 05-20-2022 13:41-0400 Body temperature 97.52 [degF] Nicky NILL [facility] [place] [facility] 05-20-2022 13:35-0400 Respiratory rate 14 /min Nicky NILL [facility] [place] [facility] 05-20-2022 10:00-0400 Body temperature 98.06 [degF] Nicky NILL [facility] [place] [facility] 05-20-2022 10:00-0400 Mean blood pressure 103 mm[Hg] Nicky NILL [facility] [place] [facility] 05-20-2022 10:00-0400 Heart rate 66 /min Nicky NILL [facility] [place] [facility] 05-13-2022 12:32-0400 Blood Pressure Location Nicky NILL [facility] [place] [facility] 05-13-2022 12:32-0400 BP/Pulse Patient Position Nicky NILL [facility] [place] [facility] 05-13-2022 12:32-0400 Diastolic blood pressure 86 mm[Hg] Nicky NILL [facility] [place] [facility] 05-13-2022 12:32-0400 Heart rate 67 /min Nicky NILL [facility] [place] [facility] 05-13-2022 12:32-0400 Mean blood pressure 102 mm[Hg] Nicky NILL [facility] [place] [facility] 05-13-2022 12:32-0400 Respiratory rate 18 /min Nicky NILL [facility] 05-13-2022 12:32-0400 Systolic blood pressure 134 mm[Hg] Nicky NILL [facility] 05-13-2022 12:30-0400 Blood Pressure Location Nicky NILL [facility] 05-13-2022 12:30-0400 BP/Pulse Patient Position Nicky NILL [facility] 05-13-2022 12:30-0400 Diastolic blood pressure 83 mm[Hg] Nicky NILL [facility] 05-13-2022 12:30-0400 Heart rate 69 /min Nicky NILL [facility] 05-13-2022 12:30-0400 Mean blood pressure 102 mm[Hg] Nicky NILL [facility] 05-13-2022 12:30-0400 SaO2% (BldA) [Mass fraction] 97 % Nicky NILL [facility] 05-13-2022 12:30-0400 Systolic blood pressure 140 mm[Hg] Nicky NILL [facility] 05-13-2022 12:30-0400 Body temperature 97.7 [degF] Nicky NILL [facility] 04-27-2022 09:05-0400 Blood Pressure Location Nicky NILL [facility] [place] 04-27-2022 09:05-0400 Diastolic blood pressure 95 mm[Hg] Nicky NILL [facility] [place] 04-27-2022 09:05-0400 Heart rate 58 /min Nicky NILL [facility] [place] 04-27-2022 09:05-0400 Respiratory rate 16 /min Nciky NILL [facility] [place] 04-27-2022 09:05-0400 Systolic blood pressure 141 mm[Hg] Nicky NILL [facility] [place] 04-23-2022 11:11-0400 Blood Pressure Location Patrick OWEN [facility] 04-23-2022 11:11-0400 Diastolic blood pressure 87 mm[Hg] Patrick OWEN [facility] 04-23-2022 11:11-0400 Heart rate 75 /min Patrick OWEN [facility] 04-23-2022 11:11-0400 Respiratory rate 16 /min Patrick OWEN [facility] 04-23-2022 11:11-0400 Systolic blood pressure 130 mm[Hg] Patrick OWEN 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) (Primary Dx); Abscess of toe, right; Contusion of right foot, initial encounter; Right foot pain Start: 05-07-2024 End: 05-07-2024 ambulatory DON D DOLCE Not Available Start: 05-07-2024 End: 05-07-2024 Bamboo flowsheet Don D Dolce DPM FACFAS Work Phone: [facility] Start: 05-07-2024 End: 05-07-2024 Bamboo flowsheet Don D Dolce DPM FACFAS Work Phone: [facility] Start: 02-14-2024 End: 02-14-2024 Emergency department patient visit Reddy Amin Master [facility] Start: 11-21-2023 End: 11-21-2023 Refill India Graf CMA [facility] Start: 2023 End: 2023 Office outpatient visit 15 minutes Yuko Waite INDUSTRIAL GAS SERVICER SUPERVISOR-TRAFFIC SIGNAL TECHNICIAN Work Phone: [facility] Comment on above: Encounter for occupa tional physical examination (Primary Dx); Type 2 diabetes mellitus without complication, without long-term current use of insulin (CMS-HCC); Anxiety; Sleep disturbance Start: 08-08-2023 Refill Yuko Emilie s INDUSTRIAL GAS SERVICER SUPERVISOR-TRAFFIC SIGNAL TECHNICIAN Work Phone: [facility] Start: 04-18-2023 End: 04-18-2023 Patient encounter procedure Patrick OWEN [facility] [place] Start: 01-06-2023 End: 01-06-2023 ambulatory Georgia Del Cid Other [facility] Other Start: 01-06-2023 Office outpatient vi sit 15 minutes Georgia Del Cid [facility] Start: 11-30-2022 End: 11-30-2022 ambulatory Imad Asaad Facility:[facility] Start: 11-04-2022 End: 11-04-2022 ambulatory Imad Asaad Other [facility] Other Start: 11-04-2022 Telephone encounter Imad Asaad [facility] Start: 10-28-2022 End: 10-28-[address] PATRICK OWEN . Facility:[facility] Start: 10-26-[address] PATRICK DELGADILLO . Facility:[facility] Start: 10-22-2022 End: 10-23-[address] PATRICK OWEN . Facility:[facility] Start: 10-21-2022 End: 10-21-2022 ambulatory Domonique Myers Facility:[facility] Start: 10-21-2022 End: 10-21-2022 ambulatory DO Jude R Jordon III Work Phone: [facility] Work Phone: Start: 10-21-2022 End: 10-21-2022 Patient encounter procedure DO Jude Ruvalcaba III Work Phone: [facility] Work Phone: Start: 06-25-2022 End: 06-25-2022 Patient encounter procedure Nicky R NILL [facility] [place] Start: 06-02-2022 End: 06-02-2022 Patient encounter procedure Nicky Guidry NILL [facility] [place] Start: 05-20-2022 End: 05-20-2022 Admission to same day surgery center Nicky CHRISTINA [facility] Start: 05-13-2022 End: 05-13-2022 Patient encounter procedure Nicky CHRISTINA [facility] Start: 04-27-2022 End: 04-27-2022 Patient encounter procedure Nicky CHRISTINA [facility] [place] Start: 04-23-2022 End: 04-23-[address] PATRICK OWEN . Facility:[facility] Start: 04-23-2022 End: 04-23-2022 Patient encounter procedure Patrick OWEN [facility] [place] Start: 04-04-2022 End: 04-04-2022 ambulatory SALBADOR BOOKER Facility:[facility] Start: 02-17-2022 End: 02-17-2022 ambulatory [facility] SILVERMAN . Facility:[facility] Start: 10-14-2017 End: 10-17-2017 Ambulatory COREA ([place]) [facility] Procedures Date Procedure Procedure Detail Performing Clinician Start: 07-04-2023 Adult depression scr eening assessment Yuko Waite APRNGoowy Work Phone: Start: 10-21-2022 Plain chest X-ray DO Yasmine Ruvalcaba III Work Phone: Start: 09-27-2022 Microalbumin [Mass/v olume] in Urine by Test strip Yuko Waite APRN-TRAFFIC SIGNAL TECHNICIAN Work Phone: Start: 05-20-2022 Laparoscopy surg rpr initial inguinal hernia Nicky CHRISTINA Start: 11-03-2020 Follow-up visit Start: 08-28-2020 Follow-up visit Start: 02-27-2015 Harris bunionectomy, right Patrick OWEN Start: 01-02-2015 Harris bunionectomy, left foot Patrick OWEN Start: 10-23-2012 Hemorrhoidectomy Willited OWEN Cholecystectomy RAKAN BANUELOS Circumcision Patrick OWEN Colonoscopy Patrick OWEN Colonoscopy Patrick OWEN Laparoscopic cholecystectomy Patrick OWEN Lateral sphincterotomy Amy costa OWEN removal of ingrown toenail 1 Patrick OWEN Comment on above: left great toe removal of ingrown toenail 1 Nicky CHRISTINA Comment on above: left great toe Tooth extraction Patrick DELGADILLO Plan of Treatment Date Care Activity Detail Author Start: 10-26-2024 Adult BMI Screening Adult BMI Screen ing [facility] Start: 10-26-2024 Tobacco Screening Tobacco Screening [facility] Start: 07-05-2024 Tobacco Screening Tobacco Screening [facility] Start: 07-04-2024 Adult BMI Screening Adult BMI Screen ing [facility] Start: 07-04-2024 Depression Screening Depression Scre ening [facility] Start: 05-21-2024 End: 05-21-2024 Patient encounter procedure 05/21/2024 3:40 PM EDT Office Visit [facility] [address] [facility] [place] [address] Don Santos, DPM FACFAS [address] [facility] [place] [place] [address] [facility] Start: 05-07-2024 End: 05-07-2024 Patient encounter procedure 05/07/2024 2:40 PM EDT Office Visit [facility] [address] [place] [address] Don Santos, DPM FACFAS [address] [place] [address] Arrived [facility] Comment on above: Arrived Start: 03-25-2024 Influenza vaccination P [facility] Start: 01-30-2024 End: 01-30-2024 Patient encounter procedure 01/30/2024 4:15 PM EDT Office Visit [facility] [address] [place] [address], [place] [phone] Yuko Waite APRN-TRAFFIC SIGNAL TECHNICIAN [address] [place] [address] [place] [phone] [facility] Start: 12-17-2023 Adult BMI Follow Up Plan Adult BMI Follow Up Plan [facility] Start: 10-31-2023 End: 10-31-2023 Patient encounter procedure 10/31/2023 4:00 PM EDT Office Visit [facility] [address] [place] [address], [place] [phone] Yuko Waite APRN-TRAFFIC SIGNAL TECHNICIAN [address] [place] [phone] [facility] Start: 10-03-2023 End: 10-03-2023 Patient encounter procedure 10/03/2023 11:00 AM EDT Office Visit [facility] [address] [place] [address], [place] [phone] Yuko Waite INDUSTRIAL GAS SERVICER SUPERVISOR-TRAFFIC SIGNAL TECHNICIAN [address] [place] [address] [place] [phone] [facility] Start: 09-28-2023 Urine screening for protein Urine Microalbumin [facility] Start: 03-25-2023 Influenza vaccination Influenza Vacc ine [facility] Start: 09-09-2022 Diabetic foot examination Diabetic Foot Exam [facility] Start: 2000 DTaP,Tdap and Td Vaccines (1 - Tdap) DTaP,Tdap and Td Vaccines (1 - Tdap) [facility] Start: 1981 Glaucoma screening Diabetic Op hthalmology Exam [facility] Start: 1981 Tobacco Counseling Tobacco Counselin g [facility] Immunizations Immunization Date Immunization Notes Care Provider Fa cility NEGATED: Highlighted row has not occurred!09-09-2021 influenza, injectable, quadrivalent, preservative free Yuko Underwoodjas INDUSTRIAL GAS SERVICER SUPERVISOR-TRAFFIC SIGNAL TECHNICIAN Work Phone: [facility] Comment on above: Deferred: Patient de cision Payers Date Payer Category Payer Private Health Insurance [facility] MEDICAID [id number] 2022 Self-pay [id number] 2022 Medicaid [employer] HMO [id number] 2022-Present [phone] [address] [place] [address] [id number] 1981 Unknown [id number] [id number]. 593 1981 Unknown [id number] 2.16.840.1.194964.3.579.2. 593 1981 Unknown [id number] 2.16.840.1.283843.3.579.2. 593 1981 Unknown [id number] 2.16.840.1.692614.3.579.2. 593 1981 Unknown [id number] 2.16.840.1.233955.3.579.2. 593 1981 Unknown [id number] 2.16.840.1.149320.3.579.2. 593 1981 Unknown [id number] 2.16.840.1.597225.3.579.2. 593 1981 Unknown [id number] 2.16.840.1.932496.3.579.2. 1259 1981 Unknown [id number] 2.16.840.1.842391.3.579.2. 727 1959 Medicaid [id number] 1958 Medicaid [id number] [id number] Unknown [id number] [id number]. 531 Unknown [id number] [id number]. 531 Social History Date Type Detail Facility Start: 01-31-2020 End: 04-23-2022 Tobacco smoking status Smoker (finding) [facility] Start: 07-04-2023 End: 2023 Sex Assigned At Male [facility] Start: 04-27-2022 Tobacco smoking status Heavy t obacco smoker (finding) [facility] [place] Comment on above: Smoker Tobacco smoking status [facility] Comment on above: Smoker Start: 1980 Sex Assigned At Male [facility] Start: 09-27-2022 End: 05-07-2024 Tobacco smoking status NHIS Smokes tobacco daily [facility] History of tobacco use Cigarette Smoker P [facility] Start: 09-27-2022 End: 07-04-2023 Cigarettes smoked current (pack per day) - Reported 1 [facility] Start: 09-27-2022 End: 05-07-2024 Tobacco use and exposure Smokeless tobacco non-user [facility] Start: 07-05-2023 End: 2023 Alcohol intake Ex-drinker (finding) [facility] Start: 1980 Sex Assigned At Not on file [facility] Start: 02-14-2024 Tobacco smoking status Light t obacco smoker (finding) [facility] Tobacco smoking stat RUSTIS Tobacco smoking consumption unknown [facility] Start: 05-07-2024 Alcoholic beverage intake Current drinker of alcohol (finding) [facility] Medical Equipment Procedure Code Equipment Code Equipment Origin al Text Equipment Identifier Dates INGUINAL HERNIA REPAIR ADULT SANFORD CORONEL, Nicky Guidry 05/20/22 Non Biological Abdomen {[id number]{ [id number] FDA Start: 05-20-2022 Monitor blood padilla gar daily [id number] Start: 2023 1 Unit by miscellaneous route in the morning. [id number] Start: 07-05-2023 Monitor blood padilla gar daily [id number] Start: 07-05-2023 End: 2023 Functional Status Date Assessment Result Facility 02-14-2024 Functional Status N/A [facility] 05-13-2022 Functional Status No [facility] 04-27-2022 Functional Status N/A [facility] [place] 04-23-2022 Functional Status N/A [facility] Clinical Notes 04-23-2022 to 05-07-2024 Don Santos DPM FACFAS - 05/07/2024 2:40 PM EDT Note Date & Type Note Facility 05-07-2024 History of Present illness Narrative Images from the original note were not included. Patient: Brian Tse : 1980 PCP: Noms Provider MD Salud SUBJECTIVE This is a 43 y.o. male [...] Past Medical History: Diagnosis Date Diabetes mellitus ([facility]) Medications: Current Outpatient Medications: glyBURIDE (Diabeta) 5 [...] < 3 seconds Digits 1-5 bilateral NEURO: Tekoa Alisa 5.07 monofilament was intact B/L. Vibratory sensation was intact B/L Musculoskeletal: Muscle strength was +5 over 5 all intrinsic and extrinsic muscles tested. ASSESSMENT 1. Abscess of toe, right 2. Contusion of right foot, initial encounter 3. Right foot pain 4. Type II diabetes mellitus with neurological manifestations (CMS/[facility]) PLAN I educated the patient the contusion [...] ulcerations. ALEXIS Sawyer documented in this encounter [facility] 02-14-2024 Hospital Discharge instructions Patient Education 02/14/2024 17:04:58 [...] by your health care provider. Follow the automatic chief's instructions for use. Tighten and properly adjust [...] provider. Document Revised: 05/04/2021 Document Reviewed: 05/04/2021 [employer] Patient Education 2022 [employer] 02/14/2024 17:04:58 Foot Sprain Foot Sprain [...] cast on your foot. General instructions Take zimh-vad-omtxcsm and prescription medicines only as told by [...] provider. Document Revised: 10/31/2020 Document Reviewed: 10/31/2020 [employer] Patient Education 2022 [employer] (formerly [employer]). Follow Up Care 02/14/2024 15:59:39 With:SALBADOR BOOKER Address: [address] [place] [phone] Business (1) When:02/17/2024 16:55:32 Comments:Return to the emergency room if your pain gets worse or any new symptoms. [facility] 02-14-2024 Note ED Patient Education Note [...] your health care provider. ? Follow the automatic chief's instructions for use. ? Tighten and properly [...] provider. Document Revised: 05/04/2021 Document Reviewed: 05/04/2021 [employer] Patient Education ? 2022 [employer] (formerly [employer]). Foot Sprain A foot sprain is an [...] You may put (more content not included)... [facility] 02-14-2024 Evaluation + Plan note Extrac ekaterina from: Title:ED Note Author:Master Olivo, Reddy oRse te:02/14/24 1. Sprain of left foot (S93. 602A: Unspecified sprain of left foot, initial encounter) Orders: ibuprofen, 600 mg = 1 tab(s), Tab, Oral, Once, Stop date 02/14/24 16:22:00 EDT, STAT, Start date 02/14/24 16:22:00 EDT, 02/14/24 16:22:00 EDT Post-op Shoe XR Foot 3+ Views Left [facility]04-29-2024 Miscellaneous Notes* Telephone Encounter - India Graf CMA - 11/21/2023 11:18 AM EDT Pharmacy requesting refill for 90 days [facility] Telephone encounter Note* Telephone Encounter - India Graf CMA - 11/21/2023 11:18 AM EDT Pharmacy requesting refill for 90 days please [facility]04-04-2024 History of Present illness Narrative* STEPHEN Ochoa - 2023 11:45 AM EDT Subjective Patient ID: Brian Tse is a 42 y.o. male. GEGE Torres presents to the office for physical exam as he is in the [employer] at [employer] [facility]. He will finish at the end of [...] negative. Brian can be cleared for the [employer] without restrictions. Physical form completed. Refills [...] complication, without long-term current use of insulin ([facility]) - blood sugar diagnostic (glucose blood) strip; [...] STEPHEN Ochoa 10/27/23 1548 documented in [facility]-2023 Evaluation note* Encounter Date Diagnosis Assessment Notes [...] worsening. Patient verbalized understanding of treatment plan. [facility] Other 04-13-2023 Hospital Discharge instructions Follow Up Care 11/04/2022 10:27:15 With:BRAYDEN CORONEL, Patrick Guidry, NEALL Address: [facility] [address], [place] [phone] When: Unknown [facility] 2022 Hospital Discharge instructions Patient Education 05/20/2022 14:32:40 Post Op Patient Instructions - FT (CUSTOM) Follow Up Care 04/27/2022 09:44:58 With:Nicky CHRISTINA Address: [address] [place] [address], [facility] [address] [address]- Business (1) When:7 to 10 days [facility]09-30-2022 Hospital Discharge instructions Patient Education 04/23/2022 12:05:06 Kidney Stones, Mxue-hm-Uqcs Kidney Stones Kidney stones are rock-like masses [...] Follow these instructions at home: Medicines Take xepa-jwz-ihbkork and prescription medicines only as told by [...] 12/27/2008 Document Revised: 11/27/2019 Document Reviewed: 11/27/2019 [employer] Patient Education 2020 [employer] Follow Up Care 04/22/2022 09:22:48 With:BRAYDEN CORONEL, Patrick Guidry, URL Address: [address] [place] [phone]- When: Unknown [facility] evaluation + Plan note Future Appointments Appointment Date:04/27/2022 09:00:00 AM Scheduled Provider:Nicky CHRISTINA MD Location:[facility] [place] Appointment Type:GS New 30 Appointment Date:10/22/2022 08:45:00 AM Scheduled Provider:Patrick OWEN MD Location:[facility] Appointment Type:URO Office Visit Diagnostic Tests Pending * Calculi Analysis Urinary 04/23/22 [facility] evaluation + Plan note Future Appointments Appointment Date:05/13/2022 12:30:00 PM Scheduled Provider: Location:[facility] Appointment Type:Surgical PAT FT Appointment Date:05/13/2022 01:30:00 PM Scheduled Provider: Location:[facility] Appointment Type:Surgery PAT COVID Testing Appointment Date:05/20/2022 11:30:00 AM Scheduled Provider: Location:[facility] Appointment Type:Surgery FT Appointment Date:10/22/2022 08:45:00 AM Scheduled Provider:Patrick OWEN MD Location:[facility] Appointment Type:URO Office Visit [facility] Evaluation + Plan note Future Appointments Appointment Date:05/20/2022 11:30:00 AM Scheduled Provider: Location:[facility] Appointment Type:Surgery FT Appointment Date:10/22/2022 08:45:00 AM Scheduled Provider:Patrick OWEN MD Location:[facility] Appointment Type:[facility] Future Appointments Appointment Date:10/22/2022 08:45:00 AM Scheduled Provider:Patrick OWEN MD Location:[facility] Appointment Type:URO [facility] Future Appointments Appointment Date:06/22/2022 02:40:00 PM Scheduled Provider:Nicky CHRISTINA MD Location: [place] Appointment Type: Post Op 15 Appointment Date:10/22/2022 08:45:00 AM Scheduled Provider:[facility] Office Visit [facility] [place] evaluswedi noteNo assessment information available [facility] Work Phone: [facility]No [facility]cent[facility] Other Evaluation note* Diagnosis Encounter for occupational physical examination- Primary Type 2 diabetes mellitus without complication, without long-term current use of insulin ([facility]) Anxiety Anxiety state, unspecified Sleep disturbance Unspecified sleep disturbance documented [facility] Diagnosis Type II diabetes mellitus with neurological manifestations ([facility])- Primary Type II or unspecified type diabetes [...] Surgical History Foot Surgery Surgical History bunionectomy [facility] aScentias Other Hospital course Narrative No data available for this section [facility] Hospital Discharge instructions No data available for this section [facility] [place] InstructionsNot on filedocumented in this encounter [facility] System[facility]ructionsNot on filedocumented in this encounter [facility] SystemInstructionsNot on filedocumented in this encounter [facility] note No data available for this section [facility] Summary Purpose Family History Relationship Condition Age at Onset Recorded Date/T magui Not Specified Diabetes mellitus Unknown sister Malignant neoplasm of stomach Unknown father Malignant neoplasm of esophagus Unknown family member Malignant neoplasm of stomach Unknown Advance Directives Advance Directive Response Recorded Date/ Time Advance Directives No January 21 1:11pm Procedure Findings Note PROCEDURE DETAILS Preoperati ve Diagnosis: Phimosis, N47.1 Postoperative Diagnosis: Phimosis, N47.1 Surgeon: Nicky Swartz Resident/Fellow/Other Line Haul Owner Operator: Radha Madrigal Procedure: 1. CIRCUMCISION Anesthesia: No [...] section and content) DATE CREATED AUTHOR 01/12/2018 [facility] DATE CREATED AUTHOR AUTHOR'S ORGANIZ ATION 09/16/2020 [facility] DATE CREATED AUTHOR AUTHOR'S ORGANIZ ATION 11/04/2020 [facility] DATE CREATED AUTHOR AUTHOR'S ORGANIZ ATION 11/04/2020 [employer] DATE CREATED AUTHOR AUTHOR'S ORGANIZ ATION 12/04/2022 [facility] p[facility] DATE CREATED AUTHOR AUTHOR'S ORGANIZ ATION 12/06/2022 [facility] DATE CREATED AUTHOR AUTHOR'S ORGANIZ ATION 05/09/2024 [facility] EPIC DATE CREATED AUTHOR AUTHOR'S ORGANIZ ATION 05/26/2024 [facility] Care Team (unrecognized sect ion and content) Team Status: Active Member Role Status Dates Jude Ruvalcaba III , DO Primary Care Provider Active Team Status: Inactive Member Role Status Dates Jude Ruvalcaba III , DO Primary Care Provider Active Domonique Myers APRN Attending Provider Active Cloth Trimmer Hand Relationship Specialty Start Date End Date Yuko Waite APRN-TRAFFIC SIGNAL TECHNICIAN PCP - General Nurse Practitioner 07/04/23 Cloth Trimmer Hand Relationship Specialty Start Date End Date Unallocated, Lorna Wilkins [facility] [place] [address] PCP - General Family Medicine 05/04/24 Cloth Trimmer Hand Relationship Specialty Start Date End Date Unallocated, MD Willem Cunningham [facility] [place] [address] PCP - General Family Medicine 05/04/24 Cloth Trimmer Hand Relationship Specialty Start Date End Date Yuko Waite APRNDAVIN PCP - General Nurse Practitioner 07/04/23 Cloth Trimmer Hand Relationship Specialty Start Date End Date Yuko Waite INDUSTRIAL GAS SERVICER SUPERVISORLUCINDA PCP - General Nurse Practitioner 07/04/23 Goals (unrecognized section and content) Goals may be documented in a n alternate section REASON FOR VISIT (unrecogniz ed section and content) Reason Comments Annual Exam Reason Comments Ingrown Toenail RT grt nail injury Reason Comments Med Refill FOR RECORDS PERTAINING TO PATIENTS WHO ARE [...] BE BASED ON THE PRIMARY CLINICAL RECORDS. [employer] provides no warranty or guarantee of the accuracy or completeness of information in this document.
--- NOTE | 2024-09-07 02:24 | CT_ITS ---
The [place] [id number] Patient Name: YESENIA TSE MRN: [facility]:[id number] date: 1980 Sex: M Assigned Patient Location: ER Current Patient Location: ER Accession/Order Number: [id number] Exam Date: 09/07/2024 02:42 Report Date: 09/07/2024 03:11 At the request of: JACQUELIN MARKER Procedure: CT abdomen pelvis wo con EXAM: CT abdomen pelvis wo con HISTORY: Rt flank pain, hx stones COMPARISON: CT abdomen and pelvis examination dated 06/13/2024. TECHNIQUE: Noncontrast axial CT images through the abdomen and pelvis were obtained after the intravenous administration of contrast. Coronal and sagittal reformats were obtained. Dose reduction techniques were achieved by using automated exposure control and/or adjustment of mA and/or kV according to patient size and/or use of iterative reconstruction technique. FINDINGS: The visualized portions of the lung bases are clear. Abdomen: Please note that the sensitivity for detection of focal lesions or vascular disease is markedly reduced without intravenous contrast. The liver and spleen are unremarkable. There is no intra or extrahepatic biliary duct dilatation. The gallbladder is surgically absent. The pancreas, adrenal glands, kidneys, and bowel loops, including the appendix, are unremarkable. There is no mesenteric or retroperitoneal lymphadenopathy. Pelvis: The bladder and rectum are unremarkable. There is no iliac or inguinal lymphadenopathy. There is mild atherosclerotic disease. Bone windows show no aggressive osseous lesions. CT/CT abdomen pelvis wo con IMPRESSION: 1. No renal or ureteral calculi are seen. 2. Status post cholecystectomy. 3. Normal appendix. Electronically authenticated by: Lucy MURRAY Date: 09/07/2024 03:11
[2024-09-07 02:35] LABS: Bilirubin Urine NEGATIVE (NEGATIVE); Blood Urine NEGATIVE (NEGATIVE); Clarity Urine CLEAR (CLEAR); Color Urine YELLOW (YELLOW); Glucose Urine UA NEGATIVE (NEGATIVE); Ketones Urine TRACE mg/dL (NEGATIVE); Leukocyte Esterase Urine NEGATIVE (NEGATIVE); Nitrite Urine NEGATIVE (NEGATIVE); Protein Urine TRACE mg/dL (NEG/TRACE); Specific Gravity Urine >=1.030 (1.005-1.025)
[2024-09-07] MEDS: KETOROLAC TROMETHAMINE 30 MG/ML VIAL IVP (02:35)
[2024-09-07] MEDS: 0.9 % SODIUM CHLORIDE 1,000 ML 1000 ML IV (02:35)
[2024-09-07] MEDS: ONDANSETRON PF 4 MG/2 ML VIAL IV (02:36)
[2024-09-07 02:42] LABS: Bacteria Urine TRACE #/HPF (NONE SEEN); Cast Seen? NONE SEEN #/LPF (NONE SEEN); Crystals Seen? None Seen #/HPF (None Seen); Mucus Urine MODERATE (NONE SEEN); RBC Urine 0-2 #/HPF (0-2); Squamous Epithelial Cell Urine FEW #/LPF (NONE/RARE); WBC Urine 0-2 #/HPF (NONE SEEN)
[2024-09-07 02:48] LABS: Alanine Aminotransferase 47 U/L (16-63); Albumin Level 4.1 g/dL (3.4-5.0); Alkaline Phosphatase 117 U/L (46-116); Anion Gap 15.1; Aspartate Amino Transferase 25 U/L (15-37); BUN Creatinine Ratio 12.6; Bilirubin Total 0.5 mg/dL (0.2-1.0); Calcium 8.7 mg/dL (8.5-10.1); Carbon Dioxide 27.7 mmol/L (21.0-32.0); Chloride 100 mmol/L (98-107); Estimated GFR (African America >60 (>=60 mL/min/1.73m^2); Estimated GFR (Non-African Ame 58 (>=60 mL/min/1.73m^2); Glucose 188 mg/dL (74-106); Potassium 3.8 mmol/L (3.5-5.1); Sodium 139 mmol/L (136-145); Total Protein 8.1 g/dL (6.4-8.2)
--- NOTE | 2024-09-07 03:09 | ED.GENADUL1 ---
HPI HPI - General Adult General Chief complaint: Back Pain/Injury Stated complaint: LOWER BACK PAIN Time Seen by Provider: 09/07/24 02:23 Source: patient Mode of arrival: walk-in Limitations: no limitations History of Present Illness HPI narrative: This 43-year-old male with a history of kidney stones presents for evaluation of acute onset of right flank pain earlier in the evening. Is associated with nausea. He has not vomited. He denies any injury to his back. His pain is in his upper flank and radiates into his right upper quadrant. He has had his gallbladder out. He denies any chest pain or shortness of breath. He denies any urinary symptoms at this time. Related Data Home Medications ?Medication ?Instructions ?Recorded ?Confirmed aluminum-mag hydroxide-simethicone ml 06/13/24 200 mg-200 mg-20 mg/5 mL oral susp (Antacid-Antigas) Previous Rx's ?Medication ?Instructions ?Recorded acetaminophen 300 mg-codeine 30 mg 1 tab PO Q6H PRN pain 3 days #10 06/14/24 tablet tabs dicyclomine 10 mg capsule 10 mg PO QID PRN abdominal pain 06/14/24 #20 caps Allergies Allergy/AdvReac Type Severity Reaction Status Date / Time No Known Drug Allergies Allergy Verified 09/07/24 02:17 Opioid HPI Opioid Management Most Recent Opioid Data: Last Pain Scale 3 09/07/24 03:20 09/07/24 Last ED Pain Assessment 09/07/24 03:20 Last MAR Pain Assessment 09/07/24 02:35 Review of Systems ROS Status of ROS 10 or more systems reviewed and unremarkable except as noted in history and below [facility] Medical History (Updated 09/07/24 @ 03:59 by Laurita Byrne MD) FH: cholecystectomy ?Z83.79 - Family history of other diseases of the digestive system (ICD-10) Diabetes ?E11.9 - Type 2 diabetes mellitus without complications (ICD-10) Social History Smoking status: Current every day smoker Little interest or pleasure in doing things: not at all Feeling down, depressed, or hopeless: not at all Exam Narrative Exam Narrative: Vital signs and Nursing Notes reviewed: Patient is afebrile with a normal pulse, normal blood pressure, he is not hypoxic with pulse ox of 97% on room air General: Awake, alert, oriented, uncomfortable appearing male, he is bent over the sink and dry heaving, no respiratory distress HEENT: Normocephalic atraumatic, mucous membranes are moist and pink, eyes are clear, normal conjunctiva, vision is grossly intact Chest: Lungs are clear to auscultation with good air entry, there is no wheezing rhonchi or rales appreciated no accessory muscle use, patient is speaking in complete sentences-no chest wall tenderness to palpation CVS: Regular rate and rhythm S1-S2, no murmurs rubs or gallops, pulses are brisk and equal bilaterally ABD: Soft, nondistended, nontender, no reproducible tenderness, there is no right upper quadrant or right lower quadrant tenderness to deep palpation, there is mild tenderness to the right mid to upper flank region. There is no skin rash in this area Extremities: Moving all extremities, no lower extremity tenderness or swelling noted, negative Homans' sign, pulses are brisk and equal bilaterally Skin: Normal in appearance without rash,pallor, petechiae or purpura Neuro: No focal deficits Constitutional Vital Signs, click to edit/add: Last Vital Signs Temp 97.9 F 09/07/24 02:12 Pulse 83 09/07/24 02:12 Resp 18 09/07/24 02:12 BP 140/87 09/07/24 02:12 Pulse Ox 97 09/07/24 02:12 O2 Del Method Room Air 09/07/24 02:12 Course Vital Signs Vital signs: Vital Signs Temperature 97.9 F 09/07/24 02:12 Pulse Rate 83 09/07/24 02:12 Respiratory Rate 18 09/07/24 02:12 Blood Pressure 140/87 09/07/24 02:12 Pulse Oximetry 97 09/07/24 02:12 Oxygen Delivery Method Room Air 09/07/24 02:12 Temperature 97.9 F 09/07/24 02:12 Pulse Rate 83 09/07/24 02:12 Respiratory Rate 18 09/07/24 02:12 Blood Pressure 140/87 09/07/24 02:12 Pulse Oximetry 97 09/07/24 02:12 Oxygen Delivery Method Room Air 09/07/24 02:12 Medical Decision Making MDM Narrative Medical decision making narrative: This 43-year-old male with a history of kidney stones presents for evaluation of right mid to lower flank pain. The pain started earlier in the evening. He denies any vomiting but does have some nausea. He denies any urinary symptoms but his urine did look mildly dark in the emergency department. He has no chest pain or shortness of breath. He does have a history of type 2 diabetes. In emergency department he was medicated with IV Toradol Zofran and IV fluids. Routine labs are ordered. He has a normal white count and hemoglobin. Electrolytes are normal. His glucose is mildly elevated at 188. Urine is negative for blood or infection. CT scan of the abdomen pelvis without contrast was ordered to rule out kidney stone. It does not show any acute findings. The results of the scan were discussed with the patient as well as his labs. He is not feeling much better after Toradol and will be given a Colona and a dose of Norflex prior to discharge. At this time I suspect his symptoms are more related to a musculoskeletal strain. He will be discharged home with a prescription for Colona, Flexeril and ibuprofen. He was encouraged to drink plenty of fluids, rest with gentle stretching and close follow-up with his family physician. Medical Records Medical records reviewed: Yes I reviewed the patient's medical records Medical records narrative: The [address] [address] [address] Scan Report Signed Patient: YESENIA TSE MR#: [id number] : 1980 Acct:[id number] Age/Sex: 43 / M ADM Date: 09/07/24 Loc: ER Attending Dr: Ordering Physician: Laurita Byrne Date of Service: 09/07/24 Procedure(s): CT abdomen pelvis wo con Accession Number(s): [id number] cc: Yuko Waite NP~ The [address] [address] Patient Name: YESENIA TSE MRN: [id number] date: 1980 Sex: M Assigned Patient Location: ER Current Patient Location: ER Accession/Order Number: [id number] Exam Date: 09/07/2024 02:42 Report Date: 09/07/2024 03:11 At the request of: LAURITA BYRNE Procedure: CT abdomen pelvis wo con EXAM: CT abdomen pelvis wo con HISTORY: Rt flank pain, hx stones COMPARISON: CT abdomen and pelvis examination dated 06/13/2024. TECHNIQUE: Noncontrast axial CT images through the abdomen and pelvis were obtained after the intravenous administration of contrast. Coronal and sagittal reformats were obtained. Dose reduction techniques were achieved by using automated exposure control and/or adjustment of mA and/or kV according to patient size and/or use of iterative reconstruction technique. FINDINGS: The visualized portions of the lung bases are clear. Abdomen: Please note that the sensitivity for detection of focal lesions or vascular disease is markedly reduced without intravenous contrast. The liver and spleen are unremarkable. There is no intra or extrahepatic biliary duct dilatation. The gallbladder is surgically absent. The pancreas, adrenal glands, kidneys, and bowel loops, including the appendix, are unremarkable. There is no mesenteric or retroperitoneal lymphadenopathy. Pelvis: The bladder and rectum are unremarkable. There is no iliac or inguinal lymphadenopathy. There is mild atherosclerotic disease. Bone windows show no aggressive osseous lesions. CT/CT abdomen pelvis wo con IMPRESSION: 1. No renal or ureteral calculi are seen. 2. Status post cholecystectomy. 3. Normal appendix. Electronically authenticated by: Lucy MURRAY Date: 09/07/2024 03:11 Lab Data Lab results reviewed: Yes I reviewed the patient's lab results Labs: Lab Results 09/07/24 09/07/24 Range/Units 02:20 02:25 Sodium 139 (136-145) mmol/L Potassium 3.8 (3.5-5.1) mmol/L Chloride 100 (98-107) mmol/L Carbon Dioxide 27.7 (21.0-32.0) mmol/L Anion Gap 15.1 BUN 17.0 (7.0-18.0) mg/dL Creatinine 1.35 H (0.70-1.30) mg/dL Est GFR ( Amer) >60 (>=60 mL/min/1.73m^2) Est GFR (Non-Af Amer) 58 L (>=60 mL/min/1.73m^2) BUN/Creatinine Ratio 12.6 Glucose 188 H (74-106) mg/dL Calcium 8.7 (8.5-10.1) mg/dL Total Bilirubin 0.5 (0.2-1.0) mg/dL AST 25 (15-37) U/L ALT 47 (16-63) U/L Alkaline Phosphatase 117 H (46-116) U/L Total Protein 8.1 (6.4-8.2) g/dL Albumin 4.1 (3.4-5.0) g/dL Globulin 4.0 g/dL Albumin/Globulin Ratio 1.0 Urine Color Yellow (YELLOW) Urine Clarity Clear (CLEAR) Urine pH 6.0 (5.0-9.0) Ur Specific [place] >=1.030 A (1.005-1.025) Urine Protein Trace (NEG/TRACE) mg/dL Urine Glucose (UA) Negative (NEGATIVE) mg/dL Urine Ketones Trace A (NEGATIVE) mg/dL Urine Occult Blood Negative (NEGATIVE) Urine Nitrite Negative (NEGATIVE) Urine Bilirubin Negative (NEGATIVE) Urine Urobilinogen 1.0 (0.2-1.0) EU/dL Ur Leukocyte Esterase Negative (NEGATIVE) Urine RBC 0-2 (0-2) #/HPF Urine WBC 0-2 A (NONE SEEN) #/HPF Ur Squamous Epith Cells Few A (NONE/RARE) #/LPF Urine Crystals None seen (None Seen) #/HPF Urine Bacteria Trace A (NONE SEEN) #/HPF Urine Casts None seen (NONE SEEN) #/LPF Urine Mucus Moderate A (NONE SEEN) Discharge Plan Discharge Chief Complaint: Back Pain/Injury Clinical Impression: Strain of lumbar region Patient Disposition: Home, Self-Care Prescriptions / Home Meds: No Action alum-mag hydroxide-simeth [Antacid-Antigas] 200-200-20 mg/5 mL suspension acetaminophen-codeine 300-30 mg tablet 1 tab PO Q6H PRN (Reason: pain) 3 Days Qty: 10 0RF dicyclomine 10 mg capsule 10 mg PO QID PRN (Reason: abdominal pain) Qty: 20 0RF Print Language: Kinyarwanda Instructions: Low Back Strain (ED), Lower Back Exercises (ED) Referrals: Yuok Waite NP [Primary Care Provider] - 1 week
[2024-09-07] MEDS: ORPHENADRINE 60 MG/ 2 ML VIAL IM (04:14)
[2024-09-07] MEDS: HYDROCODONE/ACET 5-325 MG TABLET 1 TAB PO (04:15)
== END 2024-09-07 04:22 | disposition home or self-care (01) ==
PROVIDERS: Emergency Provider Emergency Medicine; PCP Nurse Practitioner Family
DX: S39.012A Strain of muscle, fascia and tendon of lower back, initial encounter (principal); X58.XXXA Exposure to other specified factors, initial encounter; Z87.442 Personal history of urinary calculi; Z90.49 Acquired absence of other specified parts of digestive tract; F17.200 Nicotine dependence, unspecified, uncomplicated; E11.9 Type 2 diabetes mellitus without complications
CPT/HCPCS: 36415; 74176; 80053; 81001; 96372; 96374; 96375; 99284; J1885; J2360; J2405

== ENCOUNTER 2024-10-23 10:23 | Outpatient (OUT) | payer OTHER, SELFPAY ==
--- NOTE | 2024-10-23 10:25 | ECG_ITS ---
The [facility] Test Date: 2024-10-23 Pat Name: YESENIA TSE Department: Room: - Gender: Male [employer] Tender: : 1980 Requested By: [id number] Order Number: [id number] Reading MD: FABI DEAN M.D. Measurements Intervals [place] Rate: 69 P: 55 CA: 155 QRS: 47 QRSD: 90 T: 27 QT: 376 QTc: 404 Interpretive Statements SINUS RHYTHM NONSPECIFIC T-WAVE ABNORMALITY Abnormal ECG Compared to ECG 10/28/2022 08:45:49 T-wave abnormality now present Electronically Signed On 10-23-2024 20:15:41 EDT by FABI DEAN M.D.
--- OUTSIDE RECORDS SUMMARY | 2024-10-23 10:34 | XMS_ITS | CCD ---
Author Organization [facility] Care Team Providers Care Cotton Expert Name Role Phone NAHOMY SHARP (MAZIN) Unavailable Unavailable Jude Ruvalcaba III Primary Care Physician [phone] SAL[place]OR HERNANDEZ Primary Care Physician DO Jude Ruvalcaba III Primary Care Provider ALMA DELIA Myers Attending Provider Asaad, Imad Unavailable HERRERA ., UMM Admitting Unavailable HERRERA ., UMM Attending Unavailable [facility], [place] Primary Care Unavailable JANIA, DR JUANITA Guidry Consulting Unavailable EL ., DONAVAN Consulting Unavailable [facility], [place] Primary Care Unavailable DAYA WHARTON Admitting Unavailable DAYA WHARTON Attending Unavailable JANIA, DR JUANITA Guidry Consulting Unavailable DAYA WHARTON Consulting Unavailable BRAYDEN ., DR NGUYEN Admitting Unavailable OWEN ., DR NGUYEN Attending Unavailable [facility], [place] Primary Care Unavailable OWEN ., DR NGUYEN Admitting Unavailable OWEN ., DR NGUYEN Attending Unavailable [facility], [place] Primary Care Unavailable OWEN ., DR NGUYEN Consulting Unavailable MOIZ TONG Consulting Unavailable SANDRA II, AMIRA Consulting Unavailable SABI FREEMAN Consulting Unavailable OWEN [...] Attending Unavailable Salbador Hernandez Primary Care Unavailable Domonique Myers Admitting Unavailable Domonique Myers Attending Unavailable Jude Ruvalcaba III R Primary Care UnavailGeorgia Avila Unavailable SALBADOR HERNANDEZ Primary Care Physician SALBADOR HERNANDEZ Primary Care Physician [phone] Unallocated MD, [facility] Provider Primary Care [facility] devora Reddy Thao Attending Unavailable Waite IRRIGATION EQUIPMENT REMOVER-LEGAL FINANCIAL SPECIALIST, Compa Primary Care Provider COMPA WAITE Attending Unavailable WAITE, COMPA Referring Unavailable WAITE, COMPA Primary Care Unavailable JUANITA DYE Attending Unavailable WAITE, COMPA Referring Unavailable WAITE, COMPA Primary Care Unavailable JUANITA DYE Referring Unavailable WAITE, COMPA Primary Care Unavailable DON SANTOS Attending Unavailable DON SATNOS Referring Unavailable DON SANTOS Attending Unavailable Allergies Allergy Classification Reported Allergen(s) Allergy Type Date of Onset Reaction(s) Facility metFOR[facility] (1 source) metFORMIN; Translations: [metformin] Drug Allergy Diarrhea (finding) [facility] (20 sources) metFORMIN; Translations: [metformin] Drug Allergy 3 Diarrhea (finding), Diarrhea [facility] (1 source) metFORMIN Drug Allergy [facility] (2 sources) varenicline Drug Allergy 8 [facility] (1 source) Acetaminophen / oxyCODONE; Translations: [Percocet 5/325] Drug Allergy [facility] Rep[facility] (1 source) No Known Medication Allergies; Translations: [No Known Medication Allergies] Propensity to adverse reactions (disorder) [facility] Medications Current Medications Medication Drug Class(es) Dates Sig (Normalized) Sig (Original) acetaminophen 325 mg / oxyCODONE hydrochloride 5 mg oral tablet (1 source) Opioid Agonist Start: 05-20-2022 End: 05-25-2022 Percocet 325 mg-5 mg Tab 1 tab(s), Oral, q3hr Pain, 20 tab(s), Refill(s) 0, take with food or milk, [facility]/pharmacy #[id number], 180, cm, 05/13/22 12:43:00 EDT, Height/Length Dosing, 101.4, kg, 05/13/22 12:43:00 EDT, Weight Dosing Start Date: 05/20/22 Stop Date: 05/25/22 Status: Ordered amoxicillin 875 mg / clavulanate 125 mg oral tablet (1 source) Penicillin-class Antibacterial Start: 01-06-2023 take 1 tablet by mouth every twelve hours Amoxicillin-Pot Clavulanate 875-125 MG 1 tablet Orally every 12 hrs for 10 days Dec, Active atorvastatin 20 mg oral tablet (3 sources) HMG-CoA Reductase Inhibitor Start: 09-26-2024 take 1 tablet by mouth in the morning atorvastatin (LIPITOR) 20 mg tablet Indications: Elevated triglycerides with high cholesterol Take 1 tablet (20 mg total) by mouth in the morning. 90 tablet 1 09/26/2024 Active blood-glucose meter (glucose monitoring kit) kit (8 sources) Start: 07-05-2023 blood-glucose meter (glucose monitoring kit) kit Use as instructed 1 each 07/05/2023 Active Start: 07-05-2023 blood-glucose meter (glucose monitoring kit) kit Use as instructed 1 each 0 07/05/2023 Active 24 hr buPROPion hydrochloride 150 mg extended release oral tablet (8 sources) Aminoketone Start: 2023 End: 11-21-2023 take [...] Start: 07-30-2020 clotrimazole Top 1% Crm 1 janna, Topical, BID, 15 gram, Refill(s) 1, [facility], 173, cm, 07/30/20 10:33:00 EST, Height/Length Dosing, 109.1, kg, 07/30/20 10:33:00 EST, Weight Dosing Start Date: 07/30/20 Status: Ordered 0.5 ml dulaglutide 1.5 mg/ml auto-injector (14 sources) GLP-1 Receptor Agonist Start: 07-05-2023 End: 2023 dulaglutide (TRULICITY) 0.75 mg/0.5 mL pen injector Inject 0.5 mL (0.75 mg total) under the skin every 7 days. 2 mL 2023 Active Start: 01-29-2020 Dulaglutide (T rulicity) 0.75 mg/0.5 mL pen injector Active 0.75 MG SUBCUT As Directed January 29, 2020 12:00am Start: 07-26-2018 Trulicity Pen SubCutaneous, Refills(s) 0 Start Date: 07/26/18 Status: Ordered [facility] Active ergocalciferol 1.25 mg oral capsule (3 sources) Provitamin D2 Compound Start: 09-26-2024 take 1 capsule by mouth every week ergocalciferol (DRISDOL) 1,250 mcg (50,000 unit) capsule Indications: Low serum vitamin D Take 1 capsule (50,000 Units total) by mouth once a week. 12 capsule 2 09/26/2024 Active fluconazole 150 mg oral tablet (2 sources) Azole Antifungal Start: 01-06-2023 take 1 tablet by mouth once Diflucan 150 MG 1 tablet Orally once for 1 days Dec, Active Start: 07-30-2020 fluconazole 15 0 mg Tab 150 mg = 1 tab(s), Oral, Once, repeat in 3 days, # 2 tab(s), Refills(s) 0, Pharmacy: [facility], 173, cm, 07/30/20 10:33:00 EST, Height/Length Dosing, 109.1, kg, 07/30/20 10:33:00 EST, Weight Dosing Start Date: 07/30/20 Status: Ordered glyBURIDE 5 mg oral tablet (20 sources) Sulfonylurea Start: 07-04-2023 End: 01-23-2024 take 1 tablet by mouth once daily at mealtime glyBURIDE (DIABETA) 5 mg tablet Indications: Type 2 diabetes mellitus without complication, without long-term current use of insulin ([facility]) TAKE 1 TABLET BY MOUTH EVERY MORNING AND AT NIGHT WITH MEALS 180 tablet 01/23/2024 Active Start: 04-23-2022 take 1 tablet by ayde th twice daily GlyBURIDE (Eqv-Micronase) 5 mg oral tablet 5 mg = 1 tab(s), Oral, BID, Refills(s) 0, Blood glucose Start Date: 04/23/22 Status: Ordered Hydrocortisone (1 source) Corticosteroid Start: 07-30-2020 apply 30 g topically twice daily hydrocortisone Top 1% Crm janna, Topical, BID, 30 gm, Refill(s) 0, for [...] Start: 07-30-2020 lidocaine Top 4% Crm 1 janna, Topical, BID pain, 15 gm, Refill(s) 0, [...] Ordered Start: 02-04-2020 take 1 capsule by [facility] every twelve hours Omeprazole 40 MG 1 capsule Orally bid for 10 day(s) Jan, Not-Taking SITagliptin 100 mg oral tablet (4 sources) Dipeptidyl Peptidase 4 Inhibitor Start: 01-29-2020 take 1 tablet by mouth once daily Januvia 100 mg Tab 100 mg = 1 tab(s), Oral, Daily, # 30 tab(s), Refills(s) 0 Start Date: 09/11/20 Status: Ordered traZODone hydrochloride 50 mg oral tablet (8 sources) Serotonin Reuptake Inhibitor Start: 2023 End: 11-21-2023 take 1 tablet by mouth once daily traZODone (DESYREL) 50 mg tablet Take 1 tablet (50 mg total) by mouth nightly. 90 tablet 1 11/21/2023 Active vitamin b12 2.5 mg sublingual tablet (3 sources) Vitamin B12 Start: 09-26-2024 take 1 tablet under the tongue once daily cyanocobalamin, vitamin B-12, 2,500 mcg tablet, sublingual Indications: Vitamin B12 deficiency Place 1 tablet under the tongue once daily. 90 tablet 1 09/26/2024 Active vitamin b6 100 mg oral tablet (4 sources) Start: 09-25-2024 take 1 tablet by mouth in the morning pyridoxine, vitamin B6, (vitamin B-6) 100 mg tablet Indications: Cramping of feet , Cramp and spasm Take 1 tablet (100 mg total) by mouth in the morning. 90 tablet 1 09/25/2024 Active Completed/Discontinued Medications Medication Drug Class(es) Dates [...] 10 day(s) Jan, Not-Taking polyethylene glycol 3350 613953 mg / potassium chloride 2970 mg / sodium bicarbonate 6740 mg / sodium chloride 5860 mg / sodium sulfate 09068 mg powder for oral solution (4 sources) Osmotic Laxative Start: 11-04-2022 End: 2023 GAVILYTE-G 236-22.74-6.74 -5.86 gram solution daily. 0 11/04/2022 2023 Discontinued (Therapy completed) tamsulosin hydrochloride 0.4 mg oral capsule (4 sources) alpha-Adrenergic Liliam Start: 11-05-2022 End: 2023 tamsulosin (FLOMAX) 0.4 mg capsule Take by mouth daily. 0 11/05/2022 2023 Discontinued (Therapy completed) valACYclovir 1000 mg [...] Active Problems Problem Classification Problem Date Documented Date Episodic/Chronic Abdominal pain (5 sources) Abdominal pain; Translations: [Unspecified abdominal pain] Onset: 04-04-20 Episodic Acquired foot deformities (10 sources) Hallux valgus; Translations: [Hallux valgus (acquired), unspecified foot] Onset: 09-09-1903-08-2018 Chronic Anxiety disorders (8 sources) Anxiety; Translations: [Anxiety disorder, unspecified] Onset: 10-27-19 24 2023 Chronic Calculus of urinary tract (20 sources) Ureteric stone; Translations: [Calculus of ureter] Onset: 04-23-20 Episodic Diabetes mellitus with complications (13 sources) Disorder of nervous system due to type 2 diabetes mellitus; Translations: [Type 2 diabetes mellitus with other diabetic neurological complication] Onset: 09-09-19 22 05-07-2024 Chronic Disorders of lipid metabolism (4 sources) Mixed hypercholesterolemia and hypertriglyceridemia; Translations: [Mixed hyperlipidemia] Onset: 09-27-19 25 09-26-2024 Chronic Disorders of teeth and jaw (1 source) Acute gingivitis, plaque induced Episodic Esophageal disorders (2 sources) Gastroesophageal reflux disease; Translations: [Gastro-esophageal reflux disease without esophagitis] Chronic Gastrointestinal hemorrhage (5 sources) Rectal hemorrhage; Translations: [Hematochezia] Onset: 12-01-19 23 03-08-2018 Episodic Hemorrhoids (2 sources) Hemorrhoids 03-08-2018 Episodic Mood disorders (8 sources) Major depression, single episode 09-11-2020 Chronic Nausea and vomiting (4 sources) Nausea; Translations: [Nausea] Episodic Nutritional deficiencies (4 sources) Cobalamin deficiency; Translations: [Deficiency of other specified B group vitamins] Onset: 09-27-19 25 09-26-2024 Episodic Osteoarthritis (8 sources) Arthritis of right acromioclavicular joint; Translations: [Primary osteoarthritis, right shoulder] Onset: 10-15-19 18 09-09-2021 Chronic Other aftercare (1 source) 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; 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 DX] Onset: 11-02-19 Episodic Other connective tissue disease (2 sources) Pain in right foot; Translations: [Pain in right foot] 05-07-2024 Episodic Other connective tissue disease (5 sources) Cramp in foot; Translations: [Cramp and spasm] Onset: 09-26-1909-25-2024 Episodic Other connective tissue disease (5 sources) Spasm; Translations: [Cramp and spasm] Onset: 09-26-1909-25-2024 Episodic Other connective tissue disease (2 sources) Cramp and spasm; Translations: [Cramp and spasm] Onset: 09-26-19 Episodic Other gastrointestinal disorders (2 sources) Diarrhea; Translations: [Diarrhea, unspecified] Episodic Other gastrointestinal disorders (2 sources) Abnormal frequency of defecation; Translations: [Change in bowel habit] Episodic Other gastrointestinal disorders (2 sources) Rectal discharge; Translations: [Other specified symptoms and signs involving the digestive system and abdomen] Episodic Other liver diseases (8 sources) Elevated liver enzymes level 09-11-2020 Episodic Other nervous system disorders (8 sources) Mortons neuroma of right foot; Translations: [Lesion of plantar nerve, right lower limb] Onset: 09-09-19 22 09-09-2021 Chronic Other nervous system disorders (8 sources) Plantar nerve lesion; Translations: [Lesion of plantar nerve, unspecified lower limb] Onset: 09-09-19 22 09-09-2021 Chronic Other nervous system disorders (5 sources) Dysesthesia; Translations: [Other disturbances of skin sensation] Onset: 09-27-19 25 09-26-2024 Episodic Other nutritional; endocrine; and metabolic disorders (19 sources) Body mass index 30+ - obesity; Translations: [Body mass index (BMI) 30.0-30.9, adult] Onset: 09-09-19 22 07-30-2020 Chronic Other nutritional; endocrine; and metabolic disorders (2 sources) Obesity, unspecified; Translations: [Obesity, unspecified] Onset: 09-09-19 Chronic Other screening for suspected conditions (not mental disorders or infectious disease) (4 sources) Decreased vitamin D; Translations: [Other specified abnormal findings of blood chemistry] Onset: 09-27-19 25 09-26-2024 Episodic Pneumonia (except that caused by tuberculosis or [...] [ACQ ABSENCE OTH PART DIGESTV TRACT] Onset: 11-02-19 Episodic Screening and history of mental health and substance abuse codes (6 sources) Tobacco use and exposure - finding 04-28-2022 Chronic Skin and subcutaneous tissue infections (2 sources) Abscess of toe of right foot; Translations: [Cutaneous abscess of right foot] 05-07-2024 Episodic Spondylosis; intervertebral disc disorders; other back problems (5 sources) Pain in lumbar spine ; Translations: [Lumbar spine pain] Onset: 09-26-19 25 09-25-2024 Episodic Substance-related disorders (20 sources) Smoker; Translations: [Nicotine dependence, cigarettes, uncomplicated] Onset: 09-09-1904-23-2022 Chronic Comment on above: Added secondary to d ocumentation in Social History. Superficial injury; contusion (2 sources) Contusion of right foot; Translations: [Contusion of right foot, initial encounter] 05-07-2024 Episodic Unclassified (1 source) CONTACT W/AND (SUSP) EXPOS COVID-19; Translations: [CONTACT W/AND (SUSP) EXPOS COVID-19] Onset: 02-20-20 22 Unclassified (1 source) Injury, unspecified, initial encounter; Translations: [Injury, unspecified, initial encounter] Onset: 10-22-19 23 Unclassified (2 sources) Low back pain, unspecified; Translations: [Low back pain, unspecified] Onset: 09-26-19 25 Unclassified (1 source) Er Follow-up Onset: 09-26-19 25 Unclassified (1 source) Annual Exam Onset: 10-27-19 24 Past or Other Problems Problem Classification Problem Date Documented Date Episodic/Chronic Abdominal hernia (20 sources) Inguinal hernia; Translations: [Unilateral inguinal hernia, without obstruction or gangrene, not specified as recurrent] Onset: 04-23-2022 Episodic Administrative/social admission (2 sources) Patient encounter status; Translations: [Encounter for other administrative examinations] Onset: 2023 2023 Episodic Diabetes mellitus without complication (20 sources) Diabetes mellitus; Translations: [Type 2 diabetes mellitus without complications] Onset: 09-09-2021 Resolved: 09-25-2024 07-30-2020 Chronic Fever of unknown origin (10 sources) Fever; Translations: [Fever, unspecified] Onset: 09-09-2021 Resolved: 09-25-2024 07-30-2020 Episodic Headache; including migraine (12 sources) Chronic headache disorder; Translations: [Headache] Onset: 09-09-2021 03-08-2018 Episodic Mood disorders (9 sources) Mood disorders; Translations: [DEPRESSION UNSPECIFIED] Onset: 07-04-2023 Resolved: 09-25-2024 07-04-2023 Mycoses (16 sources) Candidal balano-posthitis; Translations: [Other urogenital candidiasis] Onset: 09-09-2021 07-30-2020 Episodic Nonspecific chest pain (4 sources) Other chest pain; Translations: [OTHER CHEST PAIN] Onset: 02-17-2022 Episodic Other circulatory disease (10 sources) Elevated blood pressure; Translations: [Elevated blood-pressure reading, without diagnosis of hypertension] Onset: 09-09-2021 Resolved: 09-25-2024 07-30-2020 Episodic Other connective tissue disease (8 sources) Tendonitis of right shoulder; Translations: [Other enthesopathies, not elsewhere classified] Onset: 10-14-2017 09-09-2021 Episodic Residual codes; unclassified (9 sources) Disturbance in sleep behavior; Translations: [Sleep disorder, unspecified] Onset: 2023 2023 Episodic Residual codes; unclassified (2 sources) Sleep disorder, unspecified; Translations: [Sleep disorder, unspecified] Onset: 2023 Episodic Sprains and strains (9 sources) Sprain of left foot; Translations: [Unspecified sprain of left foot, initial encounter] Onset: 10-14-2017 Episodic Unclassified (8 sources) Onset: 12-16-2022 12-16-2022 Results Test Name Value Interpretation Reference Range Facility CBC AND AUTO DIFFon 09-26-19 ABSOLUTE BASOPHIL 0.1 X10E9/L Normal 0.0-0.2 [facility] Comment on above: Performed By: #### T HYR, CMP, 2132-03, , CBCA, 15599-7, HA1C, #### [facility] ([id number]) [address], [address] [place] [address] Basophils/100 WBC (Bld) 1.0 % Normal [facility] Comment on above: Performed By: #### T HYR, CMP, 2132-03, , CBCA, 41185-0, HA1C, #### [facility] ([id number]) [address], [address] [place] [address] Eosinophils (Bld) [#/Vol] 0.3 10*3/uL Normal 0.0-0.4 [facility] Comment on above: Performed By: #### T HYR, CMP, 2132-03, , CBCA, 70390-5, HA1C, #### [facility] ([id number]) [address], [address] [place] [address] Eosinophils/100 WBC (Bld) 3.0 % Normal [facility] Comment on above: Performed By: #### T HYR, CMP, 2132-03, , CBCA, 96501-4, HA1C, #### [facility] ([id number]) [address], [address] [place] [address] Erythrocyte distribution width (RBC) [Ratio] 14.4 % Normal 11.5-15.0 [facility] Comment on above: Performed By: #### T HYR, CMP, 2132-03, 69782-7, CBCA, 38549-0, HA1C, #### [facility] ([id number]) [address], [address] [place] [address] Hematocrit (Bld) [Volume fraction] 49.5 % High 39-49 [facility] Comment on above: Performed By: #### T HYR, CMP, 2132-03, , CBCA, 18922-7, HA1C, #### [facility] ([id number]) [address], [address] [place] [address] Hemoglobin (Bld) [Mass/Vol] 16.9 g/dL Normal 13.0-17.0 [facility] Comment on above: Performed By: #### T HYR, CMP, 2132-03, , CBCA, 54692-2, HA1C, #### [facility] ([id number]) [address], [address] [place] [address] LYMPHOCYTE, ATYPICAL 4.0 % Normal [facility] Comment on above: Performed By: #### T HYR, CMP, 2132-03, , CBCA, 44924-2, HA1C, #### [facility] ([id number]) [address], [address] [place] [address] Lymphocytes (Bld) [#/Vol] 2.5 10*3/uL Normal 1.0-3.5 [facility] Comment on above: Performed By: #### T HYR, CMP, 2132-03, 63254-8, CBCA, 26906-8, HA1C, #### [facility] ([id number]) [address], [address] [place] [address] Lymphocytes/100 WBC (Bld) 20.0 % Normal [facility] Comment on above: Performed By: #### T HYR, CMP, 2132-03, 23074-0, CBCA, 25923-4, HA1C, #### [facility] ([id number]) [address], [address] [place] [address] MCH (RBC) [Entitic mass] 30.1 pg Normal 27-34 [facility] Comment on above: Performed By: #### T HYR, CMP, 2132-03, , CBCA, 14348-5, HA1C, #### [facility] ([id number]) [address], [address] [place] [address] MCHC (RBC) [Mass/Vol] 34.1 g/dL Normal 32-36 [facility] Comment on above: Performed By: #### T HYR, CMP, 2132-03, , CBCA, 80678-5, HA1C, #### [facility] ([id number]) [address], [address] [place] [address] MCV (RBC) [Entitic vol] 88 fL Normal 80-100 [facility] Comment on above: Performed By: #### T HYR, CMP, 2132-03, , CBCA, 18834-6, HA1C, #### [facility] ([id number]) [address] [place] [address] Monocytes (Bld) [#/Vol] 0.7 10*3/uL Normal 0-0.9 [facility] Comment on above: Performed By: #### T HYR, CMP, 2132-03, 52681-7, CBCA, 83790-7, HA1C, #### [facility] ([id number]) [address], [address] [place] [address] Monocytes/100 WBC (Bld) 7.0 % Normal [facility] Comment on above: Performed By: #### T HYR, CMP, 2132-03, 67225-8, CBCA, 11575-1, HA1C, #### [facility] ([id number]) [address], [address] [place] [address] Neutrophils (Bld) [#/Vol] 6.8 10*3/uL High 1.5-6.6 [facility] Comment on above: Performed By: #### T HYR, CMP, 2132-03, 96934-2, CBCA, 38491-1, HA1C, #### [facility] ([id number]) [address], [address] [place] [address] Platelet mean volume (Bld) [Entitic vol] 9.6 fL Normal 7-12 [facility] Comment on above: Performed By: #### T HYR, CMP, 2132-03, 57840-1, CBCA, 34488-2, HA1C, #### [facility] ([id number]) [address], [address] [place] [address] Platelets (Bld) [#/Vol] 223 10*3/uL Normal 150-450 [facility] Comment on above: Performed By: #### T HYR, CMP, 2132-03, 48168-8, CBCA, 29681-4, HA1C, #### [facility] ([id number]) [address], [address] [place] [address] RBC COUNT 5.62 X10E12/L Normal 4.10-5.70 [facility] Comment on above: Performed By: #### T HYR, CMP, 2132-03, 82563-8, CBCA, 49329-3, HA1C, #### [facility] ([id number]) [address], [address] [place] [address] RBC morphology finding Nom (Bld) NORMAL Normal [facility] Comment on above: Performed By: #### T HYR, CMP, 2131-9, 30353-9, CBCA, 67045-6, HA1C, #### [facility] ([id number]) [address], [address] [place] [address] SEG NEUTROPHIL 65.0 % Normal [facility] Comment on above: Performed By: #### T HYR, CMP, 2131-9, 27698-1, CBCA, 57298-8, HA1C, 50806-1 #### [facility] ([id number]) [address], [address] [place] [address] WBC (Bld) [#/Vol] 10.4 10*3/uL Normal 4.0-11.0 [facility] Comment on above: Performed By: #### T HYR, CMP, 9, 55759-8, CBCA, 15298-9, HA1C, #### [facility] ([id number]) [address], [address] [place] [address] COMPREHENSIVE METABOLIC PANE Roland 09-25-2024 Albumin [Mass/Vol] 4.7 g/dL Normal 3.2-5.3 [facility] Comment on above: Performed By: #### T HYR, CMP, 2131-9, 33980-9, CBCA, 41333-1, HA1C, 49612-7 #### [facility] ([id number]) [address], [address] [place] [address] ALP [Catalytic activity/Vol] 77 U/L Normal 39-130 [facility] Comment on above: Performed By: #### T HYR, CMP, 2131-9, 49143-6, CBCA, 42382-5, HA1C, #### [facility] ([id number]) [address], [address] [place] [address] ALT [Catalytic activity/Vol] 28 U/L Normal 0-40 [facility] Comment on above: Performed By: #### T HYR, CMP, 2132-03, 92601-0, CBCA, 00686-7, HA1C, #### [facility] ([id number]) [address], [address] [place] [address] Anion gap [Moles/Vol] 12 mmol/L Normal 5-15 [facility] Comment on above: Performed By: #### T HYR, CMP, 2132-03, 90507-7, CBCA, 24980-3, HA1C, #### [facility] ([id number]) [address], [address] [place] [address] AST [Catalytic activity/Vol] 23 U/L Normal 0-41 [facility] Comment on above: Performed By: #### T HYR, CMP, 2132-03, 03963-3, CBCA, 21781-3, HA1C, #### [facility] ([id number]) [address], [address] [place] [address] Bilirubin [Mass/Vol] 0.7 mg/dL Normal 0.3-1.2 [facility] Comment on above: Performed By: #### T HYR, CMP, 2132-03, 86808-8, CBCA, 94268-5, HA1C, #### [facility] ([id number]) [address], [address] [place] [address] Calcium [Mass/Vol] 9.5 mg/dL Normal 8.5-10.5 [facility] Comment on above: Performed By: #### T HYR, CMP, 2132-03, 13110-1, CBCA, 00966-2, HA1C, #### [facility] ([id number]) [address], [address] [place] [address] Chloride [Moles/Vol] 102 mmol/L Normal 98-109 [facility] Comment on above: Performed By: #### T HYR, CMP, 2132-03, 04696-7, CBCA, 26874-5, HA1C, #### [facility] ([id number]) [address], [address] [place] [address] CO2 [Moles/Vol] 23 mmol/L Normal 22-32 [facility] Comment on above: Performed By: #### T HYR, CMP, 2132-03, 85550-6, CBCA, 42981-8, HA1C, #### [facility] ([id number]) [address], [address] [place] [address] Creatinine [Mass/Vol] 1.06 mg/dL Normal 0.60-1.30 [facility] Comment on above: Result Comment: METH OD TRACEABLE TO IDMS STANDARD Performed By: #### T HYR, CMP, 2132-03, , CBCA, 73772-1, HA1C, #### [facility] ([id number]) [address], [address] [place] [address] GFR/1.73 sq M.predicted among non-blacks MDRD (S/P/Bld) [Vol rate/Area] 90 mL/min/{1.73_m2} Normal >59 [facility] Comment on above: Result Comment: Reported eGFR is based on the CKD-EPI 2020 equation that does not use a race coefficient. Performed By: #### T HYR, CMP, 2132-03, , CBCA, 46084-5, HA1C, #### [facility] ([id number]) [address], [address] [place] [address] Glucose [Mass/Vol] 241 mg/dL High 65-99 [facility] Comment on above: Performed By: #### T HYR, CMP, 2132-03, 21962-2, CBCA, 03795-7, HA1C, #### [facility] ([id number]) [address], [address] [place] [address] Potassium [Moles/Vol] 4.2 mmol/L Normal 3.5-5.0 [facility] Comment on above: Performed By: #### T HYR, CMP, 2132-03, 53831-3, CBCA, 61296-3, HA1C, #### [facility] ([id number]) [address], [address] [place] [address] Protein [Mass/Vol] 8.5 g/dL High 6.0-8.0 [facility] Comment on above: Performed By: #### T HYR, CMP, 2132-03, , CBCA, 94332-4, HA1C, #### [facility] ([id number]) [address], [address] [place] [address] Sodium [Moles/Vol] 137 mmol/L Normal 134-146 [facility] Comment on above: Performed By: #### T HYR, CMP, 2132-03, 39845-9, CBCA, 76690-4, HA1C, #### [facility] ([id number]) [address], [address] [place] [address] Urea nitrogen [Mass/Vol] 14 mg/dL Normal 5-23 [facility] Comment on above: Performed By: #### T HYR, CMP, 2132-03, 20150-8, CBCA, 71382-3, HA1C, #### [facility] ([id number]) [address], [address] [place] [address] HGB A1C (GLYCO-HGB)on 2024 Glucose [Mass/Vol] 183 mg/dL Normal [facility] Comment on above: Performed By: #### T HYR, CMP, 2132-03, , CBCA, 89024-5, HA1C, #### [facility] ([id number]) [address], [address] [place] [address] HbA1c (Bld) [Mass fraction] 8.0 % High 4.4-5.6 [facility] Comment on above: Result Comment: NOTE ADA Guidelines Result HgbA1c Normal : less than 5.7 % Prediabetes : 5.7 % to 6.4 % Diabetes : > 6.4 % Use with caution in patients with abnormal hemoglobin variants as the half-life of red blood cells and in vivo glycation rates are affected. Performed By: #### T HYR, CMP, 2132-03, , CBCA, 40107-6, HA1C, 02434-2 #### [facility] ([id number]) [address] [place] [address] Lipid 1996 panelon Cholesterol [Mass/Vol] 202 mg/dL High 150-200 [facility] Comment on above: Performed By: #### T HYR, CMP, 2132-03, , CBCA, 70049-6, HA1C, #### [facility] ([id number]) [address], [address] [place] [address] Cholesterol in HDL [Mass/Vol] 39 mg/dL Low >39 [facility] Comment on above: Result Comment: HDL <40 mg/dL - High Risk HDL > or = 40mg/dL- Desirable HDL >60 mg/dL - Negative Risk Performed By: #### T HYR, CMP, 9, 49979-5, CBCA, 83131-2, HA1C, #### [facility] ([id number]) [address], [address] [place] [address] Cholesterol in LDL [Mass/Vol] 120 mg/dL Normal <130 [facility] Comment on above: Result Comment: LDL <100 mg/dL - Desirable LDL >160 mg/dL - High Risk Performed By: #### T HYR, CMP, 9, 51744-0, CBCA, 09685-7, HA1C, #### [facility] ([id number]) [address], [address] [place] [address] Cholesterol in VLDL [Mass/Vol] 43 mg/dL High 0-30 [facility] Comment on above: Performed By: #### T HYR, CMP, 2132-03, 01403-9, CBCA, 70793-8, HA1C, #### [facility] ([id number]) [address], [address] [place] [address] CHOLESTEROL:HDL 5.2 High 1.0-5.0 [facility] Comment on above: Performed By: #### T HYR, CMP, 9, 24543-6, CBCA, 49131-7, HA1C, #### [facility] ([id number]) [address], [address] [place] [address] Triglyceride [Mass/Vol] 214 mg/dL High 27-150 [facility] Comment on above: Performed By: #### T HYR, CMP, 9, 63163-9, CBCA, 20463-4, HA1C, #### [facility] ([id number]) [address], [address] [place] [address] MAGNESIUMon 09-25-2024 Magnesium [Mass/Vol] 2.3 mg/dL Normal 1.8-2.6 [facility] Comment on above: Performed By: #### T HYR, CMP, 2132-03, 91662-0, CBCA, 08412-7, HA1C, #### [facility] ([id number]) [address], [address] [place] [address] THYROID PROFILEon 09-25-2024 Free T4 [Mass/Vol] 0.82 ng/dL Normal 0.61-1.60 [facility] Comment on above: Performed By: #### T HYR, CMP, 2132-03, 14917-8, CBCA, 62601-5, HA1C, #### [facility] ([id number]) [address], [address] [place] [address] TSH 1.41 uIU/mL Normal 0.49-4.67 [facility] Comment on above: Performed By: #### T HYR, CMP, 2132-03, , CBCA, 82160-7, HA1C, #### [facility] ([id number]) [address], [address] [place] [address] VITAMIN B12on 09-25-2024 Cobalamin (Vitamin B12) [Mass/Vol] 232 pg/mL Normal 180-914 [facility] Comment on above: Performed By: #### T HYR, CMP, 2132-03, 20348-7, CBCA, 60902-2, HA1C, #### [facility] ([id number]) [address], [address] [place] [address] Vitamin D+Metabolites [Mass/ Vol]on 09-25-2024 VITAMIN D 25 HYD TOT 11.6 ng/mL Low 30-100 [facility] Comment on above: Result Comment: Vitamin D status 25 [place] Vitamin D Deficiency <20 ng/mL Insufficiency 20-29 ng/mL Sufficiency 30-100 ng/mL Toxicity >100 ng/mL NOTE: A pediatric reference range has not been established by the mortgage protection specialist of this kit. The [place] [employer] recommends a Vitamin D level of = or >20ng/mL in infants and children. Performed By: #### T HYR, CMP, 2132-9, 33453-7, CBCA, 25989-4, HA1C, 37446-6 #### [facility] ([id number]) [address] [place] [address], [address] [place] [address] ED Clinical Summaryon 2023 ED Clinical Summary ED Clinical Summary [place] [address] ED Clinical Summary Person Information Name: BRIAN TSE Maria D/[facility] Age: 43 Years : 1980 Sex: Male Language: Namibian PCP: SALBADOR HERNANDEZ CNP Marital Status: Single Phone: [phone] Visit Id: Visit Reason: Foot pain-swelling; LT [...] 02/14/2024 17:04:58 02/14/2024 17:04:58 02/14/2024 17:04:58 ADDRESS: [facility] [address] [facility] [phone] PHYS DOC NOTES: MEDICAL INFORMATION: Prescriptions Given: Medications to Continue with No Changes Other Medications glyBURIDE (GlyBURIDE (Eqv-Micronase) 5 mg oral tablet) 1 Tablets By Mouth 2 times a day. tamsulosin (tamsulosin 0.4 mg Cap) 1 Capsules By Mouth every day. Refills: 0. PATIENT EDUCATION INFORMATION: Instructions: How to Use a Cast Shoe; Foot Sprain Follow up: With: Address: When: SALBADOR HERNANDEZ [address] [place] [address] [phone] Biocontrol (1) In 3 days 02/17/2024 Comments: Return to the emergency room if your pain gets worse or any new symptoms. DIAGNOSIS: 1:Sprain of left foot Normal [facility] ED Note-Physicianon 02-14-20 ED Note-Physician ED [...] and Complexity of Problems Differential Diagnosis: [] [facility] Data External documents reviewed: [] My [...] medications Follow-up With When Contact Information SALBADOR HERNANDEZ In 3 days 02/17/2024 EDT [address] [place] [address] Business (1) Additional Instructions: Return [...] Views Left (more content not included)... Normal [facility] Comment on above: Result Comment: Elec tronically Signed By: Reddy Thao M.D.\.br\Date and Time Signed: 02/14/24 16:56 EDT ED Patient Summaryon 024 ED Patient Summary ED Patient Summary [place] [id number] Patient Discharge Instructions Person Information Name: BRIAN TSE Age: 43 Years Arrival Date: 02/14/2024 15:56:45 Discharge Diagnosis: 1:Sprain of left foot Primary Care Physician: SALBADOR HERNANDEZ CNP Provider Information Primary Provider: Reddy Thao M.D. Advanced Buyer Planner:None The exam and treatment you received in the Emergency Department were for an urgent problem and are not intended as complete care. It is important that you follow up with a doctor, nurse practitioner, or physician?s elementary assistant principal for ongoing care. If your symptoms become worse or you do not improve as expected and you are unable to reach your usual health care provider, you should return to the Emergency Department. We are available 24 hours a day. BRIAN TSE has been given the following list of patient education materials, prescriptions and follow-up instructions: Follow-up Instructions: With: Address: When: SALBADOR HERNANDEZ [address] [place] [address] [phone] Biocontrol (1) In 3 days 02/17/2024 Comments: Return [...] opioids can be used to help relieve qgmbgphy-hi-jphouy pain and are often prescribed following a [...] tell you (more content not included)... Normal [facility] XR Foot 3+ Views Lefton 01-23 [...] mGy = . DAP = . Normal [facility] Glucose Poct Glucometerson 0 11-30-2022 Glucose [Mass/Vol] 155 mg/dL Normal [facility] Comment on above: Result Comment: [facility] Glucose Reference Range is dependent on time and content of last meal. Glucose of more than 200 mg/dL in a nonstressed, ambulatory subject supports the diagnosis of Diabetes Mellitus. PERFORMED BY: [facility] [address] [place] [address] PATHOLOGIST SHEET FINISHER IGLESIA SANCHEZ M.D. Performed By: #### G STIVEN #### Point of Care testing , [facility] [place] 11-30-2022 L --- Specimen: [id number] Received: 11/30/22 Status: JAGDISH Ye Num: [id number] Spec Type: Surgical Subm Dr: Edvin Colunga MD Tissues: A Colon Biopsy (ASCENDING POLYP) Procedures: HE/2, Gross/Micro L4 Age/ Patient Sex Location Account Attending Physician Brian Tse /[facility] [id number] Edvin Colunga MD SPEC NUM: [id number] RECD: 11/30/22 STATUS: JAGDISH GARRISON NUM: [id number] REINA: 11/30/22 DR: Edvin Colunga MD ENTERED: 11/30/22 [facility] DR: REBECA TYPE: Surgical DEPT: S ORDERED: [...] support the above pathologic diagnosis. CPT Codes 93956 Specimen: [id number] Received: 11/30/22 Status: JAGDISH Garrison Num: [id number] Spec Type: Surgical Subm Dr: Edvin Colunga MD Tissues: A Colon Biopsy (ASCENDING POLYP) Procedures: HE/2, Gross/Micro L4 Patient: Brian Tse [id number] (Continued) Signed (signature on file) Daily Quarles MD 12/01/22 1158 [facility] CBC AUTO DIFFon 10-28-2022 BASO # 0.1 103/ul Normal 0.0-0.1 [facility] Comment on above: Performed By: #### C BC #### [facility] [address] [place] [address] Dr. Yash Mckeon Basophils/100 WBC (Bld) 0.8 % Normal 0.2-2.0 [facility] Comment on above: Performed By: #### C BC #### [facility] [address] [place] [address] Dr. Yash Mckeon EO # 0.4 103/ul Normal 0.0-0.7 [facility] Comment on above: Performed By: #### C BC #### [facility] [address] [place] [address] Dr. Yash Mckeon Eosinophils/100 WBC (Bld) 3.3 % Normal 0.9-7.0 [facility] Comment on above: Performed By: #### C BC #### [facility] [address] [place] [address] Dr. Yash Mckeon Erythrocyte distribution width (RBC) [Ratio] 14.0 % Normal 11.0-15.0 [facility] Comment on above: Performed By: #### C BC #### [facility] [address] [place] [address] Dr. Yash Mckeon Hematocrit (Bld) [Volume fraction] 45.4 % Normal 42.0-54.0 [facility] Comment on above: Performed By: #### C BC #### [facility] [address] [place] [address] Dr. Yash Mckeon Hemoglobin (Bld) [Mass/Vol] 14.8 g/dL Normal 14.0-18.0 [facility] Comment on above: Performed By: #### C BC #### [facility] [address] [place] [address] Dr. Yash Mckeon IG # 0.04 10e3/ul Critically high 0.00-0.03 [facility] Comment on above: Performed By: #### C BC #### [facility] [address] [place] [address] Dr. Yash Mckeon IG % 0.4 % Normal 0.0-0.5 [facility] Comment on above: Performed By: #### C BC #### [facility] [address] [place] [address] Dr. Yash Mckeon LYMPH # 2.8 103/ul Normal 1.2-3.8 [facility] Comment on above: Performed By: #### C BC #### [facility] [address] [place] [address] Dr. Yash Mckeon Lymphocytes/100 WBC (Bld) 25.3 % Normal 20.5-60.0 [facility] Comment on above: Performed By: #### C BC #### [facility] [address] [place] [address] Dr. Yash Mckeon MANUAL DIFF REQ NO Normal [facility] Comment on above: Performed By: #### C BC #### [facility] [address] [place] [address] Dr. Yash Mckeon MCH (RBC) [Entitic mass] 28.6 pg Normal 25.9-34.0 [facility] Comment on above: Performed By: #### C BC #### [facility] [address] [place] [address] Dr. Yash Mckeon MCHC (RBC) [Mass/Vol] 32.6 g/dL Normal 29.9-35.2 [facility] Comment on above: Performed By: #### C BC #### [facility] [address] [place] [address] Dr. Yash Mckeon MCV (RBC) [Entitic vol] 87.8 fL Normal 80.0-94.0 [facility] Comment on above: Performed By: #### C BC #### [facility] [address] [place] [address] Dr. Yash Mckeon MONO # 1.0 103/ul Critically high 0.3-0.8 [facility] Comment on above: Performed By: #### C BC #### [facility] [address] [place] [address] Dr. Yash Mckeon Monocytes/100 WBC (Bld) 8.6 % Normal 1.7-12.0 [facility] Comment on above: Performed By: #### C BC #### [facility] [address] [place] [address] Dr. Yash Mckeon NEUT # 6.9 103/ul Critically high 1.4-6.5 [facility] Comment on above: Performed By: #### C BC #### [facility] [address] [place] [address] [address] Yash Mckeon Neutrophils/100 WBC (Bld) 61.6 % Normal 43.0-75.0 [facility] Comment on above: Performed By: #### C BC #### [facility] [address] [place] [address] [address] Yash Mckeon Platelet mean volume (Bld) [Entitic vol] 10.0 fL Normal 9.5-13.5 [facility] Comment on above: Performed By: #### C BC #### [facility] [address] [place] [address] Dr. Yash Mckeon PLT 250 103/ul Normal 150-450 [facility] Comment on above: Performed By: #### C BC #### [facility] [address] [place] [address] [address] Yash Mckeon RBC 5.17 106/ul Normal 4.70-6.10 [facility] Comment on above: Performed By: #### C BC #### [facility] [address] [place] [address] [address] Yash Mckeon WBC 11.2 103/ul Critically high 4.0-11.0 [facility] Comment on above: Performed By: #### C BC #### [facility] [address] [place] [address] Dr. Yash Mckeon POINT OF CARE GLUCOSEon Glucose [Mass/Vol] 219 mg/dL Critically high 74-106 [facility] Comment on above: Performed By: #### P OCGLUC #### [facility] [address] [place] [address] [address] Yash Mckeon PROF CHEM 8 (BAS METB)on Anion gap [Moles/Vol] 11.8 mmol/L Normal [facility] Comment on above: Performed By: #### B MP #### [facility] [address] [place] [address] Dr. Yash Mckeon Calcium [Mass/Vol] 8.6 mg/dL Normal 8.5-10.1 [facility] Comment on above: Performed By: #### B MP #### [facility] [address] [place] [address] Dr. Yash Mckeon Chloride [Moles/Vol] 101 mmol/L Normal 98-107 [facility] Comment on above: Performed By: #### B MP #### [facility] [address] [place] [address] [address] Yash Mckeon CO2 [Moles/Vol] 28.0 mmol/L Normal 21.0-32.0 [facility] Comment on above: Performed By: #### B MP #### [facility] [address] [place] [address] Dr. Yash Mckeon Creatinine [Mass/Vol] 1.13 mg/dL Normal 0.70-1.30 [facility] Comment on above: Performed By: #### B MP #### [facility] [address] [place] [address] Dr. Yash Mckeon EGFR-AF [place] >60 Normal >=60 [facility] Comment on above: Performed By: #### B MP #### [facility] [address] [place] [address] Dr. Yash Mckeon EGFR-NON AF [place] >60 Normal >=60 [facility] Comment on above: Performed By: #### B MP #### [facility] [address] [place] [address] Dr. Yash Mckeon Glucose [Mass/Vol] 196 mg/dL Critically high 74-106 [facility] Comment on above: Performed By: #### B MP #### [facility] [address] [place] [address] Dr. Yash Mckeon Potassium [Moles/Vol] 3.8 mmol/L Normal 3.5-5.1 [facility] Comment on above: Performed By: #### B MP #### [facility] [address] [place] [address] Dr. Yash Mckeon Sodium [Moles/Vol] 137 mmol/L Normal 136-145 [facility] Comment on above: Performed By: #### B MP #### [facility] [address] [place] [address] Dr. Yash Mckeon Urea nitrogen [Mass/Vol] 14.0 mg/dL Normal 7.0-18.0 [facility] Comment on above: Performed By: #### B MP #### [facility] [address] [place] [address] Dr. Yash Mckeon Urea nitrogen/Creatinine [Mass ratio] 12.4 mg/mg Normal [facility] Comment on above: Performed By: #### B MP #### [facility] [address] [place] [address] Dr. Yash Mckeon PROTIMEon 10-28-2022 INR Coag (PPP) [Relative time] {INR} Normal [facility] Comment on above: Performed By: #### P OCGLUC #### [facility] [address] [place] [address] Dr. Yash Mckeon INR GUIDELINES SEE BELOW Normal [facility] Comment on above: Result Comment: ZAN RED INR: 2.0 - 3.0 CONDITIONS NOT LISTED BELOW 2.5 - 3.5 FOR PROSTHETIC HEART VALVE REPLACEMENT 2.5 - 3.5 RECURRENT THROMBOSIS Performed By: #### P OCGLUC #### [facility] [address] [place] [address] Dr. Yash Mckeon PT Coag (PPP) [Time] 9.8 s Normal 9.0-11.6 [facility] Comment on above: Performed By: #### P OCGLUC #### [facility] [address] [place] [address] Dr. Yash Mckeon PTTon 10-28-2022 aPTT Coag (Bld) [Time] 30.5 s Normal 22.3-36.2 [facility] Comment on above: Performed By: #### P OCGLUC #### [facility] [address] [place] [address] Dr. Yash Mckeon XR KUB 1 VIEWon [...] by: SABI FREEMAN Date: 2022-10-28 08:00 Normal [facility] XR KUB 1 VIEWon 10-25-2022 [...] by: JUANITA DYKES Date: 2022-10-25 06:41 Normal [facility] XR ribs RT min 3V w CXR1V*on 10-21-2022 XR ribs RT min 3V w CXR1V* [facility] [place] [address] [place] [address] XRay Report Signed Patient: Brian Tse MR#: [id number] [id number] : 1980 Acct:[id number] Age/Sex: 41 / M ADM Date: 10/21/22 Loc: [facility] Room: Type: [facility] Attending Dr: Domonique Myers APRN [...] Linda Sierra M.D.10/21/2022 2:10 PM Dictation Location: [place] [address] Transcribed By: [facility] 10/21/22 1410 Dictated By: Linda Sierra MD 10/21/22 1406 Signed By: 10/21/22 1410 [facility] CHEMISTRYOrdered By: Lab ROP User on 05-20-2022 Glucose [Mass/Vol] 173 mg/dL High 55 - 99 mg/dL [facility] POC Subsection Comment on above: Result Comment: Dayanara alcantar RN/ POC Device SN [id number] Invalid Interpretation Code [facility] POC Subsection POC User ID [id number] Invalid Interpretation Code [facility] POC Subsection POC Username CHINEDU POSADAS Invalid Interpretation Code [facility] POC Subsection CHEMISTRYOrdered By: SYSTEM SYSTEM on 05-13-2022 Anion gap [Moles/Vol] 15 mmol/L Normal 6 - 16 mEq/L [facility] Remisol Chloride [Moles/Vol] 102 mmol/L Normal 101 - 1 11 mmol/L [facility] Remisol CO2 [Moles/Vol] 22 mmol/L Normal 21 - 31 mmol/L [facility] Remisol Creatinine [Mass/Vol] 1.1 mg/dL Normal 0.5 - 1.3 mg/dL [facility] Remisol GFR/1.73 sq M.predicted among blacks MDRD (S/P/Bld) [Vol rate/Area] mL/min/1.73 m2 Normal >=59mL/min/1 .73 m2 [facility] Chem S GFR/1.73 sq M.predicted among non-blacks MDRD (S/P/Bld) [Vol rate/Area] mL/min/1.73 m2 Normal >=59mL/min/1 .73 m2 [facility] Chem S Glucose [Mass/Vol] 171 mg/dL Normal 55 - 199 mg/dL [facility] Remisol Potassium [Moles/Vol] 3.7 mmol/L Normal 3.5 - 5.3 mmol/L [facility] Remisol Sodium [Moles/Vol] 135 mmol/L Normal 135 - 145 mmol/L [facility] Remisol Urea nitrogen [Mass/Vol] 10 mg/dL Normal [...] 9.1 E9/L Normal 4.0 - 11.0 E9/L [facility] HemeAutoSS CALCULI, URINARYon 2 2,8 Dihydroxyadenine Normal [facility] Comment on above: Performed By: #### P OCGLUC #### [facility] [address] [place] [address] [address] Yash Mckeon Ammonium Acid Urate Normal [facility] Comment on above: Performed By: #### P OCGLUC #### [facility] [address] [place] [address] [address] Yash Mckeon Bilirubin Ql (U) Normal [facility] Comment on above: Performed By: #### P OCGLUC #### [facility] [address] [place] [address] [address] Yash Mckeon Ca Oxalate Dihydrate Normal [facility] Comment on above: Performed By: #### P OCGLUC #### [facility] [address] [place] [address] [address] Yash Mckeon CaHPO4 (Brushite) Normal [facility] Comment on above: Performed By: #### P OCGLUC #### [facility] [address] [place] [address] [address] Yash Mckeon Calcium Bilirubinate Normal [facility] Comment on above: Performed By: #### P OCGLUC #### [facility] [address] [place] [address] [address] Yash Mckeon Calcium Carbonate [facility] Comment on above: Performed By: #### P OCGLUC #### [facility] [address] [place] [address] [address] Yash Mckeon Calcium Oxalate Monohydrate Normal [facility] Comment on above: Performed By: #### P OCGLUC #### [facility] [address] [place] [address] [address] Yash Mckeon Calcium Palmitate [place] [facility] Comment on above: Performed By: #### P OCGLUC #### [facility] Laboratory [address] [address] [address] Yash Mckeon Calcium Phosphate Normal [facility] Comment on above: Performed By: #### P OCGLUC #### [facility] [address] [address] [address] Yash Mckeon Calcium Stearate Normal [facility] Comment on above: Performed By: #### P OCGLUC #### [facility] [address] [address] [address] Yash Mckeon Carbonate Apatite Normal [facility] Comment on above: Performed By: #### P OCGLUC #### [facility] [address] [address] [address] Yash Mckeon Cellular Material [facility] Comment on above: Performed By: #### P OCGLUC #### [facility] [address] [address] [address] Yash cMkeon Cholesterol [facility] Comment on above: Performed By: #### P OCGLUC #### [facility] [address] [address] [address] Yash Mckeon Color (U) Phipps Normal [facility] Comment on above: Performed By: #### P OCGLUC #### [facility] [address] [address] [address] Yash Mckeon Comment Comment Normal [facility] Comment on above: Result Comment: Lolly talline substances normally associated with human calculi were not identified. Specimen is consistent with organic material. Insufficient sample to perform additional, confirmatory, or reference testing. Performed By: #### P OCGLUC #### [facility] [address] [address] [address] Yash Mckeon Comment Normal [facility] Comment on above: Performed By: #### P OCGLUC #### [facility] [address] [place] [address] Dr. Yash Mckeon Comment: Comment Normal [facility] Comment on above: Result Comment: Phys ician questions regarding Calculi Analysis contact [employer] at: [phone]. Performed By: #### P OCGLUC #### [facility] [address] [place] [address] Dr. Yash Mckeon Composition Comment Normal [facility] Comment on above: Result Comment: Plea se see comment Performed By: #### P OCGLUC #### [facility] [address] [place] [address] Dr. Yash Mckeon Cystine [facility] Comment on above: Performed By: #### P OCGLUC #### [facility] [address] [address] [address] Yash Mckeon Disclaimer: Comment [facility] Comment on above: Result Comment: This test was developed and its performance characteristics determined by [facility]. It has not been cleared or approved by the Food and Drug Administration. Performed By: #### P OCGLUC #### [facility] [address] [place] [address] Dr. Yash Mckeon Dried Blood [facility] Comment on above: Performed By: #### P OCGLUC #### [facility] [address] [place] [address] Dr. Yash Mckeon Drug or Metabolite Normal [facility] Comment on above: Performed By: #### P OCGLUC #### [facility] [address] [address] [address] Yash Mckeon Hydroxyapatite [facility] Comment on above: Performed By: #### P OCGLUC #### [facility] [address] [address] [address] Yash Mckeon Mg NH4 PO4 (Struvite) [facility] Comment on above: Performed By: #### P OCGLUC #### [facility] [address] [address] [address] Yash Mckeon MgHPO4 (Newberyite) [facility] Comment on above: Performed By: #### P OCGLUC #### [facility] [address] [address] [address] Yash Mckeon Other component(s) Normal [facility] Comment on above: Performed By: #### P OCGLUC #### [facility] [address] [address] [address] Yash Mckeon PDF . [facility] Comment on above: Performed By: #### P OCGLUC #### [facility] [address] [address] [address] Yash Mckeon Photo TNP [facility] Comment on above: Result Comment: Test not performed No photo available Performed By: #### P OCGLUC #### [facility] [address] [address] [address] Yash Mckeon Please note: Comment [facility] Comment on above: Result Comment: Calc terry report will follow via computer, mail or daycare manager delivery. Performed By: #### P OCGLUC #### [facility] [address] [address] [address] Yash Mckeon Size <1 [facility] Comment on above: Result Comment: Too small to measure. Performed By: #### P OCGLUC #### [facility] [address] [address] [address] Yash Mckeon Sodium Acid Urate [facility] Comment on above: Performed By: #### P OCGLUC #### [facility] [address] [address] [address] Yash Mckeon Source Comment [facility] Comment on above: Result Comment: Not provided Performed By: #### P OCGLUC #### [facility] [address] [address] [address] Yash Mckeon [employer] [facility] Comment on above: Performed By: #### P OCGLUC #### [facility] [address] [address] [address] Yash Mckeon Uric Acid [facility] Comment on above: Performed By: #### P OCGLUC #### [facility] [address] [place] [address] Dr. Yash Mckeon Uric Acid Dihydrate [facility] Comment on above: Performed By: #### P OCGLUC #### [facility] [address] [place] [address] Dr. Yash Mckeon Weight <1 [facility] Comment on above: Result Comment: Too small to weigh Performed By: #### P OCGLUC #### [facility] [address] [place] [address] Dr. Yash Mckeon Xanthine [facility] Comment on above: Performed By: #### P OCGLUC #### [facility] [address] [place] [address] Dr. Yash Mckeon CBC AUTO DIFFon 04-04-2022 BASO # 0.1 103/ul Normal 0.0-0.1 [facility] Comment on above: Performed By: #### C BC #### [facility] [address] [place] [address] Dr. Yash Mckeon Basophils/100 WBC (Bld) 0.9 % Normal 0.2-2.0 [facility] Comment on above: Performed By: #### C BC #### [facility] [address] [place] [address] Dr. Yash Mckeon EO # 0.4 103/ul Normal 0.0-0.7 [facility] Comment on above: Performed By: #### C BC #### [facility] [address] [address] [address] Yash Mckeon Eosinophils/100 WBC (Bld) 3.3 % Normal 0.9-7.0 [facility] Comment on above: Performed By: #### C BC #### [facility] [address] [place] [address] Dr. Yash Mckeon Erythrocyte distribution width (RBC) [Ratio] 13.8 % Normal 11.0-15.0 [facility] Comment on above: Performed By: #### C BC #### [facility] [address] [place] [address] Dr. Yash Mckeon Hematocrit (Bld) [Volume fraction] 48.7 % Normal 42.0-54.0 [facility] Comment on above: Performed By: #### C BC #### [facility] [address] [place] [address] Dr. Yash Mckeon Hemoglobin (Bld) [Mass/Vol] 16.1 g/dL Normal 14.0-18.0 [facility] Comment on above: Performed By: #### C BC #### [facility] [address] [place] [address] Dr. Yash Mckeon IG # 0.06 10e3/ul Critically high 0.00-0.03 [facility] Comment on above: Performed By: #### C BC #### [facility] [address] [place] [address] Dr. Yash Mckeon IG % 0.5 % Normal 0.0-0.5 [facility] Comment on above: Performed By: #### C BC #### [facility] [address] [place] [address] Dr. Yash Mckeon LYMPH # 4.1 103/ul Critically high 1.2-3.8 [facility] Comment on above: Performed By: #### C BC #### [facility] [address] [place] [address] Dr. Yash Mckeon Lymphocytes/100 WBC (Bld) 33.3 % Normal 20.5-60.0 [facility] Comment on above: Performed By: #### C BC #### [facility] [address] [place] [address] Dr. Yash Mckeon MANUAL DIFF REQ NO Normal [facility] Comment on above: Performed By: #### C BC #### [facility] [address] [place] [address] Dr. Yash Mckeon MCH (RBC) [Entitic mass] 29.0 pg Normal 25.9-34.0 [facility] Comment on above: Performed By: #### C BC #### [facility] [address] [place] [address] Dr. Yash Mckeon MCHC (RBC) [Mass/Vol] 33.1 g/dL Normal 29.9-35.2 [facility] Comment on above: Performed By: #### C BC #### [facility] [address] [place] [address] Dr. Yash Mckeon MCV (RBC) [Entitic vol] 87.6 fL Normal 80.0-94.0 [facility] Comment on above: Performed By: #### C BC #### [facility] [address] [place] [address] Dr. Yash Mckeon MONO # 1.0 103/ul Critically high 0.3-0.8 [facility] Comment on above: Performed By: #### C BC #### [facility] [address] [place] [address] Dr. Yash Mckeon Monocytes/100 WBC (Bld) 8.2 % Normal 1.7-12.0 [facility] Comment on above: Performed By: #### C BC #### [facility] [address] [place] [address] Dr. Yash Mckeon NEUT # 6.6 103/ul Critically high 1.4-6.5 [facility] Comment on above: Performed By: #### C BC #### [facility] [address] [place] [address] Dr. Yash Mckeon Neutrophils/100 WBC (Bld) 53.8 % Normal 43.0-75.0 [facility] Comment on above: Performed By: #### C BC #### [facility] [address] [address] [address] Yash Mckeon Platelet mean volume (Bld) [Entitic vol] 10.5 fL Normal 9.5-13.5 [facility] Comment on above: Performed By: #### C BC #### [facility] [address] [address] [address] Yash Mckeon PLT 260 103/ul Normal 150-450 [facility] Comment on above: Performed By: #### C BC #### [facility] [address] [address] [address] Yash Mckeon RBC 5.56 106/ul Normal 4.70-6.10 [facility] Comment on above: Performed By: #### C BC #### [facility] [address] [address] [address] Yash Mckeon WBC 12.2 103/ul Critically high 4.0-11.0 [facility] Comment on above: Performed By: #### C BC #### [facility] [address] [address] [address] ABD/PELVIS WO CONon [...] JUANITA DYKES Date: 2022-04-04 08:43 Normal [facility] CULTURE URINEon 04-04-2022 CULTURE URINE Culture Observations : LIGHT GROWTH OF MIXED SKIN BRIANNA. NO POTENTIAL PATHOGENS SEEN. Normal [facility] Comment on above: Performed By: #### P OCGLUC #### [facility] [address] [place] [address] Dr. Yash Mckeon ER URINE PROFILEon 2 Bilirubin Ql (U) Negative Normal NEGATIVE [facility] Comment on above: Performed By: #### E HARSHADR UMICRO #### [facility] [address] [place] [address] Dr. Yash Mckeon Clarity (U) SL CLOUDY Abnormal CLEAR [facility] Comment on above: Performed By: #### E RUR UMICRO #### [facility] [address] [place] [address] Dr. Yash Mckeon Color (U) BROWN Abnormal YELLOW [facility] Comment on above: Performed By: #### E RUR, UMICRO #### [facility] [address] [place] [address] Dr. Yash Mckeon ERUAHNancy A micrscopic examination will be performed if indicated. Normal [facility] Comment on above: Performed By: #### E RUR, UMICRO #### [facility] [address] [place] [address] Dr. Yash Mckeon Glucose Ql (U) 100 mg/dl Abnormal NEGATIVE [facility] Comment on above: Performed By: #### E RUR, UMICRO #### [facility] [address] [place] [address] Dr. Yash Mckeon Hemoglobin Ql (U) LARGE Abnormal NEGATIVE [facility] Comment on above: Performed By: #### Vincenzo KELLEY UMICRO #### [facility] [address] [place] [address] Dr. Yash Mckeon Ketones Ql (U) TRACE Abnormal NEGATIVE [facility] Comment on above: Performed By: #### Vincenzo KELLEY UMICRO #### [facility] [address] [place] [address] Dr. Yash Mckeon LEUKOCYTES Negative Normal NEGATIVE [facility] Comment on above: Performed By: #### SUNIL STEPHENSRO #### [facility] [address] [place] [address] Dr. Yash Mckeon Nitrite Ql (U) Positive Abnormal NEGATIVE [facility] Comment on above: Performed By: #### SUNIL STEPHENSRO #### [facility] [address] [place] [address] Dr. Yash Mckeon pH (U) 5.0 [pH] Normal 5-9 [facility] Comment on above: Performed By: #### SUNIL STEPHENSRO #### [facility] [address] [place] [address] Dr. Yash Mckeon Protein (U) [Mass/Vol] 100 mg/dL Abnormal NEGATIVE/ TRACE [facility] Comment on above: Performed By: #### SUNIL STEPHENSRO #### [facility] [address] [place] [address] Dr. Yash Mckeon SPEC GRAVITY >=1.030 Abnormal 1.005-<=1.02 5 [facility] Comment on above: Performed By: #### SUNIL STEPHENSRO #### [facility] [address] [place] [address] Dr. Yash Mckeon UR MICRO IND INDICATED Normal [facility] Comment on above: Performed By: #### SUNIL STEPHENSRO #### [facility] [address] [place] [address] Dr. Yash Mckeon Urobilinogen Qn (U) 1.0 {Nathaniel'U}/dL Normal 0.2 - 1. 0 [facility] Comment on above: Performed By: #### E KALEIGH KELLEY #### [facility] [address] [address] [address] Yash Mckeon PROF CHEM 8 (BAS METB)on Anion gap [Moles/Vol] 16.0 mmol/L Normal [facility] Comment on above: Performed By: #### B MP #### [facility] [address] [address] [address] Yash Mckeon Calcium [Mass/Vol] 8.5 mg/dL Normal 8.5-10.1 [facility] Comment on above: Performed By: #### B MP #### [facility] [address] [place] [address] Dr. Yash Mckeon Chloride [Moles/Vol] 102 mmol/L Normal 98-107 [facility] Comment on above: Performed By: #### B MP #### [facility] [address] [address] [address] Yash Mckeon CO2 [Moles/Vol] 23.6 mmol/L Normal 21.0-32.0 [facility] Comment on above: Performed By: #### B MP #### [facility] [address] [address] [address] Yash Mckeon Creatinine [Mass/Vol] 1.17 mg/dL Normal 0.70-1.30 [facility] Comment on above: Performed By: #### B MP #### [facility] [address] [address] [address] Yash Mckeon EGFR-AF [place] >60 Normal >=60 [facility] Comment on above: Performed By: #### B MP #### [facility] [address] [place] [address] Dr. Yash Mckeon EGFR-NON AF [place] >60 Normal >=60 [facility] Comment on above: Performed By: #### B MP #### [facility] [address] [address] [address] Yash Mckeon Glucose [Mass/Vol] 234 mg/dL Critically high 74-106 [facility] Comment on above: Performed By: #### B MP #### [facility] [address] [place] [address] Dr. Yash Mckeon Potassium [Moles/Vol] 3.6 mmol/L Normal 3.5-5.1 [facility] Comment on above: Performed By: #### B MP #### [facility] [address] [place] [address] Dr. Yash Mckeon Sodium [Moles/Vol] 138 mmol/L Normal 136-145 [facility] Comment on above: Performed By: #### B MP #### [facility] [address] [place] [address] Dr. Yash Mckeon Urea nitrogen [Mass/Vol] 8.0 mg/dL Normal 7.0-18.0 [facility] Comment on above: Performed By: #### B MP #### [facility] [address] [place] [address] Dr. Yash Mckeon Urea nitrogen/Creatinine [Mass ratio] 6.8 mg/mg Normal [facility] Comment on above: Performed By: #### B MP #### [facility] [address] [place] [address] Dr. Yash Mckeon URINE MICROSCOPIC ONLYon BACTERIA TRACE Abnormal NONE SEEN [facility] Comment on above: Performed By: #### SUNIL STEPHENSRO #### [facility] [address] [place] [address] Dr. Yash Mckeon Bacteria identified Cx Nom (U) INDICATED Normal [facility] Comment on above: Performed By: #### SUNIL STEPHNESRO #### [facility] [address] [place] [address] Dr. Yash Mckeon CAST NONE SEEN Normal NONE SEEN [facility] Comment on above: Performed By: #### SUNIL STEPHENSRO #### [facility] [address] [place] [address] Dr. Yash Mckeon Crystals LM Nom (Urine sed) NONE SEEN Normal NONE SEEN [facility] Comment on above: Performed By: #### Vincenzo KELLEY, UMICRO #### [facility] [address] [place] [address] Dr. Yash Mckeon Epithelial cells LM Ql (Urine sed) RARE Normal NONE SEEN /RARE [facility] Comment on above: Performed By: #### Vincenzo KELLEY, UMICRO #### [facility] [address] [place] [address] Dr. Yash Mckeon MUCOUS NONE SEEN Normal NONE SEEN [facility] Comment on above: Performed By: #### Vincenzo KELLEY, UMICRO #### [facility] [address] [place] [address] Dr. Yash Mckeon RBC 20-50 Abnormal 0-2 [facility] Comment on above: Performed By: #### Vincenzo KELLEY UMICRO #### [facility] [address] [place] [address] Dr. Yash Mckeon WBC 0-2 Abnormal NONE SEEN [facility] Comment on above: Performed By: #### Vincenzo KELLEY ICRO #### [facility] [address] [place] [address] Dr. Yash Mckeon CBC AUTO DIFFon 02-17-2022 BASO # 0.1 103/ul Normal 0.0-0.1 [facility] Comment on above: Performed By: #### C BC #### [facility] [address] [place] [address] Dr. Yash Mckeon Basophils/100 WBC (Bld) 0.7 % Normal 0.2-2.0 [facility] Comment on above: Performed By: #### C BC #### [facility] [address] [place] [address] Dr. Yash Mckeon EO # 0.2 103/ul Normal 0.0-0.7 [facility] Comment on above: Performed By: #### C BC #### [facility] [address] [place] [address] Dr. Yash Mckeon Eosinophils/100 WBC (Bld) 1.6 % Normal 0.9-7.0 [facility] Comment on above: Performed By: #### C BC #### [facility] [address] [place] [address] Dr. Yash Mckeon Erythrocyte distribution width (RBC) [Ratio] 14.3 % Normal 11.0-15.0 [facility] Comment on above: Performed By: #### C BC #### [facility] [address] [place] [address] Dr. Yash Mckeon Hematocrit (Bld) [Volume fraction] 47.1 % Normal 42.0-54.0 [facility] Comment on above: Performed By: #### C BC #### [facility] [address] [place] [address] Dr. Yash Mckeon Hemoglobin (Bld) [Mass/Vol] 15.7 g/dL Normal 14.0-18.0 [facility] Comment on above: Performed By: #### C BC #### [facility] [address] [place] [address] Dr. Yash Mckeon IG # 0.05 10e3/ul Critically high 0.00-0.03 [facility] Comment on above: Performed By: #### C BC #### [facility] [address] [place] [address] Dr. Yash Mckeon IG % 0.5 % Normal 0.0-0.5 [facility] Comment on above: Performed By: #### C BC #### [facility] [address] [place] [address] Dr. Yash Mckeon LYMPH # 2.9 103/ul Normal 1.2-3.8 [facility] Comment on above: Performed By: #### C BC #### [facility] [address] [place] [address] Dr. Yash Mckeon Lymphocytes/100 WBC (Bld) 29.8 % Normal 20.5-60.0 [facility] Comment on above: Performed By: #### C BC #### [facility] [address] [place] [address] Dr. Yash Mckeon MANUAL DIFF REQ NO Normal [facility] Comment on above: Performed By: #### C BC #### [facility] [address] [address] [address] Yash Mckeon MCH (RBC) [Entitic mass] 29.2 pg Normal 25.9-34.0 [facility] Comment on above: Performed By: #### C BC #### [facility] [address] [place] [address] Dr. Yash Mckeon MCHC (RBC) [Mass/Vol] 33.3 g/dL Normal 29.9-35.2 [facility] Comment on above: Performed By: #### C BC #### [facility] [address] [place] [address] Dr. Yash Mckeon MCV (RBC) [Entitic vol] 87.7 fL Normal 80.0-94.0 [facility] Comment on above: Performed By: #### C BC #### [facility] [address] [place] [address] Dr. Yash Mckeon MONO # 0.7 103/ul Normal 0.3-0.8 [facility] Comment on above: Performed By: #### C BC #### [facility] [address] [place] [address] Dr. Yash Mckeon Monocytes/100 WBC (Bld) 6.8 % Normal 1.7-12.0 [facility] Comment on above: Performed By: #### C BC #### [facility] [address] [place] [address] Dr. Yash Mckeon NEUT # 5.9 103/ul Normal 1.4-6.5 [facility] Comment on above: Performed By: #### C BC #### [facility] [address] [place] [address] Dr. Yash Mckeon Neutrophils/100 WBC (Bld) 60.6 % Normal 43.0-75.0 [facility] Comment on above: Performed By: #### C BC #### [facility] [address] [place] [address] Dr. Yash Mckeon Platelet mean volume (Bld) [Entitic vol] 10.3 fL Normal 9.5-13.5 [facility] Comment on above: Performed By: #### C BC #### [facility] [address] [address] [address] Yash Mckeon PLT 240 103/ul Normal 150-450 [facility] Comment on above: Performed By: #### C BC #### [facility] [address] [place] [address] Dr. Yash Mckeon RBC 5.37 106/ul Normal 4.70-6.10 [facility] Comment on above: Performed By: #### C BC #### [facility] [address] [place] [address] Dr. Yash Mckeon WBC 9.8 103/ul Normal 4.0-11.0 [facility] Comment on above: Performed By: #### C BC #### [facility] [address] [place] [address] Dr. Yash Mckeon Covid-19 PCR (CVDTB)on 01-23 SARS-CoV-2 (COVID-19) RNA TALIB+probe Ql (Unsp spec) Not detected Normal NOT DETECTED [facility] Comment on above: Result Comment: When [...] for this test is supported by the [place] of Health and Human Service's declaration that [...] used). Performed By: #### C VDTBH #### [facility] [address] [place] [address] Dr. Yash Mckeon D-DIMERon 02-17-2022 D-DIMER <0.19 Normal <=0.59 [facility] Comment on above: Performed By: #### D DIM #### [facility] [address] [place] [address] Dr. Yash Mckeon D-DIMER COMMENTS SEE BELOW Normal [facility] Comment on above: Result Comment: Incr eases [...] hospitalization. Performed By: #### D DIM #### [facility] [address] [place] [address] Dr. Yash Mckeon PROF CHEM 8 (BAS METB)on Anion gap [Moles/Vol] 13.0 mmol/L Normal [facility] Comment on above: Performed By: #### P OCGLUC #### [facility] [address] [place] [address] Dr. Yash Mckeon Calcium [Mass/Vol] 9.2 mg/dL Normal 8.5-10.1 [facility] Comment on above: Performed By: #### P OCGLUC #### [facility] [address] [place] [address] Dr. Yash Mckeon Chloride [Moles/Vol] 102 mmol/L Normal 98-107 [facility] Comment on above: Performed By: #### P OCGLUC #### [facility] [address] [place] [address] Dr. Yash Mckeon CO2 [Moles/Vol] 28.2 mmol/L Normal 21.0-32.0 [facility] Comment on above: Performed By: #### P OCGLUC #### [facility] [address] [place] [address] Dr. Yash Mckeon Creatinine [Mass/Vol] 1.10 mg/dL Normal 0.70-1.30 [facility] Comment on above: Performed By: #### P OCGLUC #### [facility] [address] [address] [address] Yash Mckeon EGFR-AF [place] >60 Normal >=60 [facility] Comment on above: Performed By: #### P OCGLUC #### [facility] [address] [address] [address] Yash Mckeon EGFR-NON AF [place] >60 Normal >=60 [facility] Comment on above: Performed By: #### P OCGLUC #### [facility] [address] [address] [address] Yash Mckeon Glucose [Mass/Vol] 174 mg/dL Critically high 74-106 [facility] Comment on above: Performed By: #### P OCGLUC #### [facility] [address] [address] [address] Yash Mckeon Potassium [Moles/Vol] 4.2 mmol/L Normal 3.5-5.1 [facility] Comment on above: Performed By: #### P OCGLUC #### [facility] [address] [address] [address] Yash Mckeon Sodium [Moles/Vol] 139 mmol/L Normal 136-145 [facility] Comment on above: Performed By: #### P OCGLUC #### [facility] [address] [address] [address] Yash Mckeon Urea nitrogen [Mass/Vol] 12.0 mg/dL Normal 7.0-18.0 [facility] Comment on above: Performed By: #### P OCGLUC #### [facility] [address] [address] [address] Yash Mckeon Urea nitrogen/Creatinine [Mass ratio] 10.9 mg/mg Normal [facility] Comment on above: Performed By: #### P OCGLUC #### [facility] [address] [place] [address] Dr. Yash Mckeon TROPONIN, HIGH SENSITIVITYon 02-17-2022 HSTROP <4.0 Normal 4.0-76.1 [facility] Comment on above: Result Comment: CUT- OFF POINTS HAVE BEEN ESTABLISHED BASED ON THE FOURTH UNIVERSAL DEFINITIONS OF MYOCARDIAL INFARCTION. THE UPPER REFERENCE LIMIT (URL) OF TROPONIN, DEFINED THE 99TH PERCENTILE OF cTnI DISTRIBUTION IN A REFERENCE POPULATION, HAS BEEN CONFIRMED THE DECISION THRESHOLD FOR ND DIAGNOSIS. Performed By: #### P OCGLUC #### [facility] [address] [place], [place] [address] Dr. Yash Mckeon XR RIBS RT PA [...] JUANITA DYKES Date: 2022-02-17 15:26 Normal [facility] BASIC METABOLIC PANELon 08-25 Anion gap [Moles/Vol] 17 mmol/L Normal 10 - 20 [facility] Comment on above: Performed By: #### B MP #### [address] [address] Calcium [Mass/Vol] 8.7 mg/dL Normal 8.6 - 10.3 [facility] Comment on above: Performed By: #### B MP #### [address] [address] Chloride [Moles/Vol] 103 mmol/L Normal 98 - 107 [facility] Comment on above: Performed By: #### B MP #### [facility] [address] [place] [address] Creatinine [Mass/Vol] 0.88 mg/dL Normal 0.50 - 1.30 [facility] Comment on above: Performed By: #### B MP #### [address] [address] GFR- AM. >60 Normal >60 [facility] Comment on above: Result Comment: CALC ULATIONS OF ESTIMATED GFR ARE PERFORMED USING THE MDRD STUDY EQUATION FOR THE IDMS-TRACEABLE CREATININE METHODS. CLIN CHEM 2007;53:766-72 Performed By: #### B MP #### [facility] [place] [address] [place] [address], [place] [address] GFR-NON AM. >60 Normal >60 [facility] Comment on above: Performed By: #### B MP #### [facility] [place] [address] [place] [address] Glucose [Mass/Vol] 252 mg/dL High 74 - 99 [facility] Comment on above: Performed By: #### B MP #### [address] [address] HCO3 (Bld) [Moles/Vol] 19 mmol/L Low 21 - 32 [facility] Comment on above: Performed By: #### B MP #### [address] [address] Potassium [Moles/Vol] 4.1 mmol/L Normal 3.5 - 5.3 [facility] Comment on above: Performed By: #### B MP #### [address] [address] Sodium [Moles/Vol] 135 mmol/L Low 136 - 145 [facility] Comment on above: Performed By: #### B MP #### [address] [address] Urea nitrogen [Mass/Vol] 13 mg/dL Normal 6 - 23 [facility] Comment on above: Performed By: #### B MP #### [address] [address] GLUCOSE-POCTon 09-05-2020 Glucose [Mass/Vol] 276 mg/dL High 74 - 99 [facility] Comment on above: Performed By: #### G LATA #### [address] [address] History and Physical - Surgi kellie Update [...] Last Updated: 05-Sep-2020 11:26 by Nicky Garay) [facility] Operative Reports - [place] 09-05-2020 Operative Reports - [place] PREOPERATIVE INDICATION: Phimosis. PREOPERATIVE DIAGNOSIS: Phimosis. POSTOPERATIVE [...] NICKY GARAY MD EST EST DICTATION NUMBER: [id number] INTERNAL JOB NUMBER: [id number] Electronic Signatures: Nicky Garay) (Signed on 15-Sep-2020 07:34) Authored Unsigned, Draft (SYS GENERATED) (Entered on 06-Sep-2020 07:26) Entered Last Updated: 15-Sep-2020 07:34 by Nicky Garay) [facility] Order Reconciliationon 09-05 Order Reconciliation [...] be shared with your follow-up providers (doctor, rubber and pounder, physical therapist, etc.). Follow Up with in [...] be shared with your follow-up providers (doctor, rubber and pounder, physical therapist, etc.). Follow Up with in [...] but has not started this yet Normal [facility] Histologyon 09-05-2020 [place] [facility] Name BRIAN TSE Pathologist: CHRIS MACEDO [...] 2.5 x 0.5 x 0.5 cm respectively. Stadium Attendant sections are submitted in 1 cassette. TNB tnb/09/05/2020 [facility] Department of Pathology [address] [place] [address] Normal [facility] Comment on above: Performed By: #### P #### [facility] [address] [address] [facility] [address] Preop Checkliston 09-05-2020 Preop Checklist Preop Checklist: Preop Checklist: Arrival [id number] Arrival Time09:42 Procedure TypeCIRCUMCISION Temperature C36.2 degrees C Temperature F97.1 degrees F Heart Rate70 beats per minute Respiratory Rate18 breath per minute Blood Pressure Jkzalpgc969 mm/Hg Blood Pressure Ynzcqlusc30 mm/Hg ID Band Onyes Allergy Bandno known [...] 05-Sep-2020 09:48 by Zainab Laguna (SUKHJINDER) Normal [facility] URINE CULTURE,BACTERIALon URINE CULTURE,BACTERIAL PATIENT: BRIAN TSE LOCATION: [facility] BILL#: [id number] : 82 AGE: SEX: M ORDERED BY: NICKY GARAY SOURCE: URINE COLLECTED: 09/05/20 08:16 ANTIBIOTICS AT REINA.: RECEIVED : 09/05/20 11:32 SITE: R E S U L T S URINE CULTURE,BACTERIAL FINAL 09/06/20 07:51 NO SIGNIFICANT GROWTH. Normal [facility] Comment on above: Performed By: #### U [facility] #### [facility] [address] [place] [address] CORONAVIRUS 2019, SCREEN ASY MPTOMATICon 09-03-2020 CORONAVIRUS 2019,PCR NOT DETECTED Normal Not Detected [facility] Comment on above: Result Comment: [...] patient management decisions. Fact sheet for providers: https://www.fda.gov/media/132335/download Fact sheet for patients: https://www.fda.gov/media/784426/download This test has received FDA Emergency Use Authorization (EUA) and has been verified by [facility] ([facility]). This test is only authorized for the duration of time that circumstances exist to justify the authorization of the emergency use of in vitro diagnostic tests for the detection of SARS-CoV-2 virus and/or diagnosis of COVID-19 infection under section 564(b)(1) of the Act, 21 U.S.C. 360bbb-3(b)(1), unless the authorization is terminated or revoked sooner. [facility] is certified under CLIA-88 as qualified to perform high complexity testing. Testing is performed in the [facility] laboratories located at [address] [place] [address]. Performed By: #### C OVSC #### [place] [address] Lab Specimen Source Nasal, Nasopharyngeal Normal [facility] Comment on above: Performed By: #### C OVSC #### [place] [address] Covid 19 Resultson 1 Covid 19 Results [...] contacted by the [facility] to see if any of your close [...] or Naproxen (Aleve) can also be used. Decm-xgg-vnrqfro cough and cold medicines can be used according to the instructions on the package. Some dozj-zjv-gcfqalz medicines also contain acetaminophen. Make sure you [...] water are not available, use alcohol-based hand senior sous chef. Avoid touching your eyes, nose, and mouth [...] a total of 10 days. Additional resources: [facility] COVID Hotline at 1-814-8ZHVKYA ( ). COVID-19 Careline at (availabl e 24 hours per day, seven days a week if you or a loved one is experiencing anxiety related to the coronavirus pandemic). Clinical research opportunities: is conducting research studies to develop better testing and treatments for COVID. Do you want any information on how to participate Call [phone]. Websites: hospitals.org or www.CDC.gov Follow My Health / My UHCare (for other test results): Revised 06/10/2020 Electronic Signatures: Satinder Rajan (ADMIN) (Signature pending) Authored Last Updated: 03-Sep-2020 21:24 by Satinder Rajan (ADMIN) Normal [facility] CNOVon 10-14-2017 CNOV Office Visit (LOORRM) BRIAN PEÑA ([id number]) 1980 MDate Time Provider Department10/14/17 11:00 AM NAHOMY SHARP (PA) LOORRClint During your visit today, we recorded [...] CONSULT TO PHYSICAL THERAPY [9032] Order #: [id number]: 1Prescriptions as of 10/14/2017 Sig: ATORVASTATIN 10 [...] Historical Med Sig: Disc: Erroneous entryEncounter Number: [id number] Status:Closed by NAHOMY SHARP PA-C on 10/14/17 [facility] PROGRESSon 10-14-2017 PROGRESS HNO ID: [id number]: Nahomy (Fatmata ScotchService: (none)Author Type: Physician AssistantType: Progress NotesFiled: 10/14/2017 [...] fileFAMILY HISTORY:No family history on file. Normal [facility] PROGRESS HNO ID: [id number]: Nahomy Sharp (Pa)Service: Orthopaedic SurgeryAuthor Type: Physician AssistantType: Progress NotesFiled: 10/20/2017 3:42 PMNote Text: [facility] [address] [place], [place] [address] CLINIC NOTE Department of Orthopaedics - PAM KeitaAME: TSEBRIAN NO.: [id number] OF SERVICE: 10/14/2017CHIEF COMPLAINT: Right shoulder pain.HISTORY [...] temporarily. [facility] followed by an MRI. He is here todayfor further evaluation and discussion of treatment. He is aujl-qridohw-zdecfqsky diabetic who was under poor control several [...] lifting anything heavy. 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 They show some AC joint arthritis. Goodacromiohumeral distance. No significant glenohumeral arthritis. Noevidence of fracture. No other osseous abnormalities.MRI: MRI dated 10/01/2017 from [facility] shows a mildrotator cuff tendinosis, [...] therapy, which he will doat [facility] [place] [facility] [place]. [facility] Discussed possibly a cortisone injection at that time ifnecessary. Declines today as he does not like needles.Dictated By: Pepe Zurita Dictated: 10/19/2017Date Typed: anshul 10/19/2017BLANKB# [id number] Normal [facility] SR-MRI Shoulder w/o Contrast Right IMPORTon 10-01-2017 SR-MRI Shoulder w/o Contrast Right IMPORT Images were obtained outside of [facility] [id number] Normal [facility] SR-XR Shoulder Complete Righ t IMPORTon 09-13-2017 SR-XR Shoulder Complete Right IMPORT Images were obtained outside of [facility] [id number] Normal [facility] Vital Signs Date Time Vital Sign Value Performing Clinician Facility 09-25-2024 11:07-0500 Body height 175.3 cm Juanita Enriquezuessler IRRIGATION EQUIPMENT REMOVER-LEGAL FINANCIAL SPECIALIST Work Phone: [facility] 09-25-2024 11:07-0500 Body mass index (BMI) [Ratio] 33.64 kg/m2 Juanita Enriquezuessler IRRIGATION EQUIPMENT REMOVER-LEGAL FINANCIAL SPECIALIST Work Phone: [facility] 09-25-2024 11:07-0500 Body temperature 98.4 [degF] Juanita Enriquezuesjin OATESN-LEGAL FINANCIAL SPECIALIST Work Phone: [facility] 09-25-2024 11:07-0500 Body weight 103.33 kg Juanita Enriquezuessler IRRIGATION EQUIPMENT REMOVER-LEGAL FINANCIAL SPECIALIST Work Phone: [facility] 09-25-2024 11:07-0500 Diastolic blood pressure 80 mm[Hg] Juanita Enriquezuessler IRRIGATION EQUIPMENT REMOVER-LEGAL FINANCIAL SPECIALIST Work Phone: [facility] 09-25-2024 11:07-0500 Heart rate 82 /min Juanita Dye APRN-LEGAL FINANCIAL SPECIALIST Work Phone: [facility] 09-25-2024 11:07-0500 SaO2% (BldA) [Mass fraction] 97 % Juanita Enriquezuessler IRRIGATION EQUIPMENT REMOVER-LEGAL FINANCIAL SPECIALIST Work Phone: [facility] [employer] [facility] 09-25-2024 11:07-0500 Systolic blood pressure 122 mm[Hg] Juanita Enriquezuessler IRRIGATION EQUIPMENT REMOVER-LEGAL FINANCIAL SPECIALIST Work Phone: [facility] 05-07-2024 14:57-0400 Body height 180.3 cm Don Santos DPM FACFAS Work Phone: [facility] 05-07-2024 14:57-0400 Body mass index (BMI) [Ratio] 33.61 kg/m2 Don Santos DPM FACFAS Work Phone: [facility] 05-07-2024 14:57-0400 Body weight 109.32 kg Don Santos DPM FACFAS Work Phone: [facility] 05-07-2024 14:57-0400 Diastolic blood pressure 79 mm[Hg] Don Santos DPM FACFAS Work Phone: [facility] 05-07-2024 14:57-0400 Heart rate 74 /min Don Santos DPM FACFAS Work Phone: [facility] 05-07-2024 14:57-0400 Systolic blood pressure 128 mm[Hg] Don Santos DPM FACFAS Work Phone: [facility] 02-14-2024 16:11-0400 Body temperature 98.78 [degF] [facility] 02-14-2024 16:11-0400 Diastolic blood pressure 86 mm[Hg] [facility] 02-14-2024 16:11-0400 Heart rate 79 /min [facility] 02-14-2024 16:11-0400 Respiratory rate 18 /min [facility] 02-14-2024 16:11-0400 SaO2% (BldA) [Mass fraction] 98 % [facility] 02-14-2024 16:11-0400 Systolic blood pressure 131 mm[Hg] [facility] 2023 11:48-0400 Body height 176.5 cm Compa Waite APRNGoodwall Work Phone: [facility] 2023 11:48-0400 Body mass index (BMI) [Ratio] 31.16 kg/m2 Compa Waite IRRIGATION EQUIPMENT REMOVER-LEGAL FINANCIAL SPECIALIST Work Phone: [facility] 2023 11:48-0400 Body temperature 98.1 [degF] Compa Waite IRRIGATION EQUIPMENT REMOVER-LEGAL FINANCIAL SPECIALIST Work Phone: [employer] 2023 11:48-0400 Body weight 97.07 kg Compa Waite IRRIGATION EQUIPMENT REMOVER-LEGAL FINANCIAL SPECIALIST [facility] Phone: [facility] 2023 11:48-0400 Diastolic blood pressure 74 mm[Hg] Compa Waite IRRIGATION EQUIPMENT REMOVER-LEGAL FINANCIAL SPECIALIST Work Phone: [facility] 2023 11:48-0400 Heart rate 65 /min Compa Waite IRRIGATION EQUIPMENT REMOVER-LEGAL FINANCIAL SPECIALIST Work Phone: [facility] 2023 11:48-0400 SaO2% (BldA) [Mass fraction] 99 % Compa Waite APRN-LEGAL FINANCIAL SPECIALIST Work Phone: [facility] 2023 11:48-0400 Systolic blood pressure 124 mm[Hg] Compa Waite IRRIGATION EQUIPMENT REMOVER-LEGAL FINANCIAL SPECIALIST Work Phone: [facility] 01-06-2023 10:25-0400 Body height 177.8 cm Georgia Del Cid Other [employer] Other 01-06-2023 10:25-0400 Body mass index (BMI) [Ratio] 31.1 kg/m2 Georgia Del Cid Other [employer] Other 01-06-2023 10:25-0400 Body temperature 98.7 [degF] Georgia Del Cid Other [employer] Other 01-06-2023 10:25-0400 Body weight 98.34 kg Georgia Del Cid Other [employer] [employer] Other 01-06-2023 10:25-0400 Diastolic blood pressure 88 mm[Hg] Georgia Del Cid Other [employer] [employer] Other 01-06-2023 10:25-0400 Respiratory rate 18 /min Georgia Del Cid Other [employer] Other 01-06-2023 10:25-0400 SaO2% (BldA) [Mass fraction] 98 % Georgia Del Cid Other [employer] Other 01-06-2023 10:25-0400 Systolic blood pressure 136 mm[Hg] Georgia Del Cid Other [employer] Other 05-20-2022 16:12-0400 Blood Pressure Location Nicky NILL [facility] 05-20-2022 16:12-0400 Body temperature 98.06 [degF] Nicky NILL [facility] 05-20-2022 16:12-0400 Diastolic blood pressure 74 mm[Hg] Nicky NILL [facility] 05-20-2022 16:12-0400 Heart rate 79 /min Nicky NILL [facility] 05-20-2022 16:12-0400 Mean blood pressure 85 mm[Hg] Nicky NILL [facility] 05-20-2022 16:12-0400 Respiratory rate 16 /min Nicky NILL [facility] 05-20-2022 16:12-0400 SaO2% (BldA) [Mass fraction] 96 % Nicky NILL [facility] 05-20-2022 16:12-0400 Systolic blood pressure 106 mm[Hg] Nicky NILL [facility] 05-20-2022 14:41-0400 Blood Pressure Location Nicky NILL [facility] 05-20-2022 14:41-0400 Body temperature 98.06 [degF] Nicky NILL [facility] 05-20-2022 14:41-0400 Diastolic blood pressure 83 mm[Hg] Nicky NILL [facility] 05-20-2022 14:41-0400 Heart rate 70 /min Nicky NILL [facility] 05-20-2022 14:41-0400 Respiratory rate 16 /min Nicky NILL [facility] 05-20-2022 14:41-0400 SaO2% (BldA) [Mass fraction] 99 % Nicky NILL [facility] 05-20-2022 14:41-0400 Systolic blood pressure 135 mm[Hg] Nicky NILL [facility] 05-20-2022 14:38-0400 Body temperature 97.52 [degF] Nicky NILL [facility] 05-20-2022 14:38-0400 Diastolic blood pressure 85 mm[Hg] Nicky NILL [facility] 05-20-2022 14:38-0400 Heart rate 67 /min Nicky NILL [facility] 05-20-2022 14:38-0400 Respiratory rate 14 /min Nicky NILL [facility] 05-20-2022 14:38-0400 SaO2% (BldA) [Mass fraction] 100 % Nicky NILL [facility] 05-20-2022 14:38-0400 Systolic blood pressure 122 mm[Hg] Nicky NILL [facility] 05-20-2022 14:25-0400 Respiratory rate 11 /min Nicky NILL [facility] 05-20-2022 14:15-0400 Respiratory rate 15 /min Nicky NILL [facility] 05-20-2022 13:41-0400 Blood Pressure Location Nicky NILL [facility] 05-20-2022 13:41-0400 Body temperature 97.52 [degF] Nicky NILL [facility] 05-20-2022 13:35-0400 Respiratory rate 14 /min Nicky NILL [facility] 05-20-2022 10:00-0400 Body temperature 98.06 [degF] Nicky NILL [facility] 05-20-2022 10:00-0400 Mean blood pressure 103 mm[Hg] Nicky NILL [facility] 05-20-2022 10:00-0400 Heart rate 66 /min Nicky NILL [facility] 05-13-2022 12:32-0400 Blood Pressure Location Nicky NILL [facility] 05-13-2022 12:32-0400 BP/Pulse Patient Position Nicky NILL [facility] 05-13-2022 12:32-0400 Diastolic blood pressure 86 mm[Hg] Nicky NILL [facility] 05-13-2022 12:32-0400 Heart rate 67 /min Nicky NILL [facility] 05-13-2022 12:32-0400 Mean blood pressure 102 mm[Hg] Nicky NILL [facility] 05-13-2022 12:32-0400 Respiratory rate 18 /min Nicky NILL [facility] 05-13-2022 12:32-0400 Systolic blood pressure 134 mm[Hg] Nicky NILL [facility] 05-13-2022 12:30-0400 Blood Pressure Location Nicky NILL [facility] 05-13-2022 12:30-0400 BP/Pulse Patient Position Nicky NILL [facility] 05-13-2022 12:30-0400 Diastolic blood pressure 83 mm[Hg] Nicky NILL [facility] 05-13-2022 12:30-0400 Heart rate 69 /min Nicky NILL [facility] 05-13-2022 12:30-0400 Mean blood pressure 102 mm[Hg] Nicky NILL [facility] 05-13-2022 12:30-0400 SaO2% (BldA) [Mass fraction] 97 % Nicky NILL [facility] 05-13-2022 12:30-0400 Systolic blood pressure 140 mm[Hg] Nicky NILL [facility] 05-13-2022 12:30-0400 Body temperature 97.7 [degF] Nicky NILL [facility] 04-27-2022 09:05-0400 Blood Pressure Location Nicky NILL [facility] [place] 04-27-2022 09:05-0400 Diastolic blood pressure 95 mm[Hg] Nicky NILL [facility] [place] 04-27-2022 09:05-0400 Heart rate 58 /min Nicky NILL [facility] [place] 04-27-2022 09:05-0400 Respiratory rate 16 /min Nicky PATELVianney [facility] 04-27-2022 09:05-0400 Systolic blood pressure 141 mm[Hg] Nicky CHRISTINA [facility] 04-23-2022 11:11-0400 Blood Pressure Location Patrick OWEN [facility] 04-23-2022 11:11-0400 Diastolic blood pressure 87 mm[Hg] alee OWEN [facility] 04-23-2022 11:11-0400 Heart rate 75 /min alee OWEN [facility] 04-23-2022 11:11-0400 Respiratory rate 16 /min Patrick OWEN [facility] 04-23-2022 11:11-0400 Systolic blood pressure 130 mm[Hg] Patrick OWEN [facility] Encounters Encounter Date Encounter Type Care Provider Facility Start: 10-10-2024 End: 10-10-2024 ambulatory DON SANTOS Not Available Start: 10-01-2024 End: 10-01-2024 Telephone encounter Mayra Llanos CMA [facility] Comment on above: New Patient Start: 09-26-2024 End: 09-26-2024 Orders Only Juanita Dye IRRIGATION EQUIPMENT REMOVER-LEGAL FINANCIAL SPECIALIST Work Phone: [facility] Comment on above: Vitamin B12 deficien cy (Primary Dx); Low serum vitamin D; Elevated triglycerides with high cholesterol; Dysesthesia affecting both sides of body Start: 09-25-2024 End: 09-25-2024 ambulatory [facility] Start: 09-25-2024 End: 09-25-2024 Office outpatient visit 25 minutes Juanita Dye IRRIGATION EQUIPMENT REMOVER-LEGAL FINANCIAL SPECIALIST Work Phone: [facility] Comment on above: Cramp and spasm ([facility] Dx); Lumbar spine pain; Cramping of feet; Diabetic peripheral neuropathy associated with type 2 diabetes mellitus ([facility]); Obesity with body mass index 30 or greater; Sleep disturbance Start: 09-25-2024 End: 09-25-2024 ambulatory [facility] Vianey DYE [facility] Start: 05-07-2024 End: 05-07-2024 Office outpatient visit 25 minutes Don Santos DPM FACFAS Work Phone: [facility] Comment on above: 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 ([facility]) (Primary Dx); Abscess of toe, right; Contusion [...] 02-14-2024 Emergency department patient visit Reddy Thao [facility] Start: 01-22-2024 End: 01-23-2024 Refill Compa Waite APRN-LEGAL FINANCIAL SPECIALIST Work Phone: [facility] Comment on above: Type 2 diabetes josseline itus without complication, without long- term current use of insulin ([facility]) Start: 11-21-2023 End: 11-21-2023 Refill Adysan Sleek [employer] [facility] Start: 2023 End: 2023 Office outpatient visit 15 minutes Compa Waite IRRIGATION EQUIPMENT REMOVER-LEGAL FINANCIAL SPECIALIST Work Phone: [facility] Comment on above: Encounter for occupa tional physical examination (Primary Dx); Type 2 diabetes mellitus without complication, without long-term current use of insulin ([facility]); Anxiety; Sleep disturbance Start: 2023 End: 2023 ambulatory [facility] Start: 08-08-2023 Refill [facility] IRRIGATION EQUIPMENT REMOVER-LEGAL FINANCIAL SPECIALIST Work Phone: [facility] Start: 04-18-2023 End: 04-18-2023 Patient encounter procedure Patrick OWEN [facility] Start: 01-06-2023 End: 01-06-2023 ambulatory Georgia Del Cid Other [facility] Other Start: 01-06-2023 Office outpatient vi sit 15 minutes Georgia Del Cid [facility] Start: 11-30-2022 End: 11-30-2022 ambulatory Imad Asaad Facility:[facility] Start: 11-04-2022 End: 11-04-2022 ambulatory Imad Asaad Other [facility] Other Start: 11-04-2022 Telephone encounter Imad Asaad [facility] Start: 10-28-2022 End: 10-28-[address] PATRICK OWEN . Facility:[facility] Start: 10-26-[address] PATRICK OWEN . Fac ility:[facility] Start: 10-22-2022 End: 10-23-[address] PATRICK OWEN . Facility:[facility] Start: 10-21-2022 End: 10-21-2022 ambulatory Domonique Myers Facility:[facility] Start: 10-21-2022 End: 10-21-2022 ambulatory DO Jude Ruvalcaba III Work Phone: [facility] Work Phone: Start: 10-21-2022 End: 10-21-2022 Patient encounter procedure DO Jude Ruvalcaba III Work Phone: [facility] Work Phone: Start: 06-25-2022 End: 06-25-2022 Patient encounter procedure Nicky R NILL [facility] Start: 06-02-2022 End: 06-02-2022 Patient encounter procedure Nicky R NILL [facility] [place] Start: 05-20-2022 End: 05-20-2022 Admission to same day surgery center Nicky Guidry NILL [facility] Start: 05-13-2022 End: 05-13-2022 Patient encounter procedure Nicky Guidry NILL [facility] Start: 04-27-2022 End: 04-27-2022 Patient encounter procedure Nicky R NILL [facility] [place] Start: 04-23-2022 End: 04-23-[address] PATRICK OWEN . Facility:[facility] Start: 04-23-2022 End: 04-23-2022 Patient encounter procedure [facility] Start: 04-04-2022 End: 04-04-2022 ambulatory SALBADOR HERNANDEZ Facility:[facility] Start: 02-17-2022 End: 02-17-2022 ambulatory [facility] . Facility:[facility] Start: 10-14-2017 End: 10-17-2017 Ambulatory [facility] Procedures Date Procedure Procedure Detail Performing Clinician Start: 09-25-2024 Adult depression scr eening assessment Juanita Enriquezuessler IRRIGATION EQUIPMENT REMOVER-[facility] Work Phone: Start: 07-04-2023 Adult depression scr eening assessment Compa Waite [facility] Work Phone: Start: 10-21-2022 Plain chest X-ray DO Ro denisse Ruvalcaba III Work Phone: Start: 09-27-2022 Microalbumin [Mass/v olume] in Urine by Test strip Compa Waite [facility] Work Phone: Start: 05-20-2022 Laparoscopy surg rpr [...] Treatment Date Care Activity Detail Author Start: 09-25-2025 Adult BMI Screening Adult BMI Screen ing [facility] Start: 09-25-2025 Depression Screening Depression Scre ening [facility] Start: 09-25-2025 Tobacco Screening Tobacco Screening [facility] Start: 12-26-2024 End: 12-26-2024 Patient encounter procedure 12/26/2024 10:40 AM EDT Office Visit [facility] [address] [place] [address] [place] [address] Compa Waite, IRRIGATION EQUIPMENT REMOVER-LEGAL FINANCIAL SPECIALIST [address] [place] [address], [facility] [place] [address] [facility] Start: 11-16-2024 End: 11-16-2024 Patient encounter procedure 11/16/2024 2:30 PM EDT Office Visit [facility], A Department of [address] [place] [phone] Eleni Jaimes MD [address] [place] [address] [address] [place], [place] [id number] [facility] Department of [facility] Start: 10-26-2024 Adult BMI Screening Adult BMI Screen ing [facility] Start: 10-26-2024 Tobacco Screening Tobacco Screening [facility] Start: 09-25-2024 End: 09-25-2025 XR Lumbar spine Views W flexion and W extension X-ray spine lumbar ap, lateral, flexion and extension only Imaging Routine Lumbar spine pain Expected: 09/25/2024, Expires: 09/25/2025 Sunita Work Phone: Comment on above: Expected: 09/25/2024 , Expires: 09/25/2025 Start: 07-05-2024 Tobacco Screening Tobacco Screening [facility] Start: 07-04-2024 Adult BMI Screening Adult BMI Screen ing [facility] Start: 07-04-2024 Depression Screening Depression Scre ening [facility] Start: 05-21-2024 End: 05-21-2024 Patient encounter procedure 05/21/2024 3:40 PM EDT Office Visit [facility] [address] [place] [phone] Don Santos, DPM FACFAS [address] [facility] [place] [address] [facility] Start: 05-07-2024 End: 05-07-2024 Patient encounter procedure 05/07/2024 2:40 PM EDT Office Visit [facility] [address] [place] [phone] Don Santos, DPM FACFAS [address] [facility] [place] [address] Arrived [facility] Comment on above: Arrived Start: 03-25-2024 Influenza vaccination [facility] Start: 01-30-2024 End: 01-30-2024 Patient encounter procedure 01/30/2024 4:15 PM EDT Office Visit [facility] [address] [place] [phone] Compa Waite APRN-LEGAL FINANCIAL SPECIALIST [address] [place] [phone] [facility] Start: 12-17-2023 Adult BMI Follow Up Plan Adult BMI Follow Up Plan [facility] Start: 10-31-2023 End: 10-31-2023 Patient encounter procedure 10/31/2023 4:00 PM EDT Office Visit [facility] [address] [place] [phone] Compa Waite IRRIGATION EQUIPMENT REMOVER-LEGAL FINANCIAL SPECIALIST [address] [place] [phone] [facility] Start: 10-03-2023 End: 10-03-2023 Patient encounter procedure 10/03/2023 11:00 AM EDT Office Visit [facility] [address] [place] [phone] Compa Waite APRN-LEGAL FINANCIAL SPECIALIST [address] [place] [address], [place] [address] [facility] Start: 09-28-2023 Urine screening for protein Urine Microalbumin [facility] Start: 03-25-2023 Influenza vaccination Influenza Vacc ine [facility] Start: 09-09-2022 Diabetic foot examination Diabetic Foot Exam [facility] Start: 2000 DTaP,Tdap and Td Vaccines (1 - Tdap) DTaP,Tdap and Td Vaccines (1 - Tdap) [facility] Start: 10-28-1999 Diabetic foot examination Diabetic Foot Exam [facility] Start: 1981 Glaucoma screening Diabetic Op hthalmology Exam [facility] Start: 1981 Statin Use: Diabetic Statin Use: Riya betic [facility] Start: 1981 Tobacco Counseling Tobacco Counselin g [facility] End: 09-25-2025 CBC W Auto Differential panel - Blood CBC auto differential Lab Routine Lumbar spine pain Cramping of feet Cramp and spasm Diabetic peripheral neuropathy associated with type 2 diabetes mellitus ([facility]) Obesity with body mass index 30 or greater Sleep disturbance 1 Occurrences starting 09/25/2024 until 09/25/2025 [facility] Comment on above: 1 Occurrences starti ng 09/25/2024 until 09/25/2025 End: 09-25-2025 Comprehensive metabolic 2000 panel - Serum or Plasma Comprehensive metabolic panel Lab Routine Lumbar spine pain Cramping of feet Cramp and spasm Diabetic peripheral neuropathy associated with type 2 diabetes mellitus ([facility]) Obesity with body mass index 30 or greater Sleep disturbance 1 Occurrences starting 09/25/2024 until 09/25/2025 [facility] Comment on above: 1 Occurrences starti ng 09/25/2024 until 09/25/2025 End: 09-25-2025 Cyanocobalamin vitamin b-12 Vitamin B12 Lab Routine Lumbar spine pain Cramping of feet Cramp and spasm Diabetic peripheral neuropathy associated with type 2 diabetes mellitus ([facility]) Obesity with body mass index 30 or greater Sleep disturbance 1 Occurrences starting 09/25/2024 until 09/25/2025 [facility] Comment on above: 1 Occurrences starti ng 09/25/2024 until 09/25/2025 End: 09-25-2025 Hemoglobin A1c/Hemoglobin.total in Blood Hemoglobin A1c Lab Routine Lumbar spine pain Cramping of feet Cramp and spasm Diabetic peripheral neuropathy associated with type 2 diabetes mellitus ([facility]) Obesity with body mass index 30 or greater Sleep disturbance 1 Occurrences starting 09/25/2024 until 09/25/2025 [facility] Comment on above: 1 Occurrences starti ng 09/25/2024 until 09/25/2025 End: 09-25-2025 Lipid 1996 panel - Serum or Plasma Lipid profile Lab Routine Lumbar spine pain Cramping of feet Cramp and spasm Diabetic peripheral neuropathy associated with type 2 diabetes mellitus ([facility]) Obesity with body mass index 30 or greater Sleep disturbance 1 Occurrences starting 09/25/2024 until 09/25/2025 [employer] Comment on above: 1 Occurrences starti ng 09/25/2024 until 09/25/2025 End: 09-25-2025 Magnesium [Mass/volume] in Serum or Plasma Magnesium Lab Routine Lumbar spine pain Cramping of feet Cramp and spasm Diabetic peripheral neuropathy associated with type 2 diabetes mellitus ([facility]) Obesity with body mass index 30 or greater Sleep disturbance 1 Occurrences starting 09/25/2024 until 09/25/2025 [employer] Comment on above: 1 Occurrences starti ng 09/25/2024 until 09/25/2025 End: 09-25-2025 Thyroid profile includes TSH FT4 Thyroid profile includes TSH FT4 Lab Routine Lumbar spine pain Cramping of feet Cramp and spasm Diabetic peripheral neuropathy associated with type 2 diabetes mellitus ([facility]) Obesity with body mass index 30 or greater Sleep disturbance 1 Occurrences starting 09/25/2024 until 09/25/2025 [employer] Comment on above: 1 Occurrences starti ng 09/25/2024 until 09/25/2025 End: 09-25-2025 Vitamin D 25 hydroxy Vitamin D 25 hydroxy Lab Routine Lumbar spine pain Cramping of feet Cramp and spasm Diabetic peripheral neuropathy associated with type 2 diabetes mellitus ([facility]) Obesity with body mass index 30 or greater Sleep disturbance 1 Occurrences starting 09/25/2024 until 09/25/2025 [facility] Comment on above: 1 Occurrences starti ng 09/25/2024 until 09/25/2025 Immunizations Immunization Date Immunization Notes Care Provider Zoraida jane NEGATED: Highlighted row has not occurred!09-09-2021 influenza, injectable, quadrivalent, preservative free Compa Waite IRRIGATION EQUIPMENT REMOVER-LEGAL FINANCIAL SPECIALIST Work Phone: [facility] Comment on above: Deferred: Patient de cision Payers Date Payer Category Payer Private Health Insurance [facility] MEDICAID [id number] 2022 Self-pay [id number] 2022 Medicaid [employer] HMO [id number] 2022-Present [phone] [place] [phone] [id number] 2022 Medicaid HMO [employer] [id number] 1981 Unknown [id number] [id number]. 593 1981 Unknown [id number] 2.16.840.1.730284.3.579.2. 593 1981 Unknown [id number] 2.16.840.1.336458.3.579.2. 593 1981 Unknown [id number] 2.16.840.1.434576.3.579.2. 593 1981 Unknown [id number] 2.16.840.1.804595.3.579.2. 593 1981 Unknown [id number] 2.16.840.1.121805.3.579.2. 593 1981 Unknown [id number] 2.16.840.1.607380.3.579.2. 593 1981 Unknown [id number] 2.16.840.1.205972.3.579.2. 727 1981 Unknown [id number] 2.16.840.1.682247.3.579.2. 1286 1981 Unknown [id number] 2.16.840.1.050536.3.579.2. 1286 1981 Unknown [id number] 2.16.840.1.530806.3.579.2. 1286 1981 Unknown [id number] 2.16.840.1.575806.3.579.2. 1259 1981 Unknown [id number] 2.16.840.1.935597.3.579.2. 1259 1981 Unknown [id number] 2.16.840.1.324336.3.579.2. 1259 1959 Medicaid [id number] 1959 Medicaid [id number] [id number] Unknown [id number] 2.16.840.1.984291.3.579.2. 531 Unknown [id number] 2.16.840.1.291478.3.579.2. 531 Social History Date Type Detail Facility Start: 01-31-2020 End: 04-23-2022 Tobacco smoking status Smoker (finding) [facility] Start: 05-07-2024 End: 09-25-2024 Sex Assigned At Male [facility] Start: 04-27-2022 Tobacco smoking status Heavy t obacco smoker (finding) [facility] Comment on above: Smoker Tobacco smoking status Never [facility] Comment on above: Smoker Start: 1980 Sex Assigned At Male [facility] Start: 02-14-2024 Tobacco smoking status Light t obacco smoker (finding) [facility] consumption unknown [facility] Start: 1981 Sex assigned at Not on file [facility] Start: 09-27-2022 End: 05-07-2024 Tobacco smoking status MAIS Smokes tobacco daily [facility] History of tobacco use Cigarette Smoker P [facility] Start: 09-27-2022 End: 05-07-2024 Tobacco use and exposure Smokeless tobacco non-user [facility] Start: 05-07-2024 Alcoholic beverage intake Current drinker of alcohol (finding) [facility] Start: 05-07-2024 End: 09-25-2024 History of Social function [facility] Start: 2023 End: 09-25-2024 Alcoholic beverage intake Ex-drinker (finding) [facility] Start: 08-26-2021 Sex Male (finding) [facility] Medical Equipment Procedure Code Equipment Code Equipment Origin al Text Equipment Identifier Dates INGUINAL HERNIA REPAIR ADULT [place] CORONEL, Nicky Guidry 10/27/22 Non Biological Abdomen {[id number] Start: 05-20-2022 [id number] Start: 07-05-2023 1 Unit by miscellaneous route in the morning. [id number] Start: 07-05-2023 Monitor blood padilla gar daily [id number] Start: 07-05-2023 End: 2023 Functional Status Date Assessment Result Facility 02-14-2024 Functional Status N/A [facility] 05-13-2022 Functional Status No [facility] 04-27-2022 Functional Status N/A [facility] [place] 04-23-2022 Functional Status N/A [facility] Clinical Notes 04-23-2022 to 10-01-2024 Telephone Encounter - Katiuska Hamlin - 10/01/2024 1:04 PM EDTTelephone Encounter - Katiuska Hamlin - 10/01/2024 1:04 PM EDTTelephone Encounter - Mayra Llanos CMA - 10/01/2024 10:41 AM EDT Note Date & Type Note Facility 10-01-2024 Miscellaneous Notes 1. IS THIS DUE TO AN ACCIDENT? -No 2. IS THIS WORKER'S COMP? PLEASE VERIFY IF THIS IS WORKERS COMP AND DOCUMENT (We do not accept any new workers comp cases) -No 3. WHAT INSURANCE? [facility] o 4. HAVE YOU EVER BEEN SEEN BY A NEUROLOGIST BEFORE? IF YES, WHO AND WHEN? IS THIS A SECOND OPINION? -No 5. ANY CHANCE OF NOW OR BEFORE YOUR APPOINTMENT? -N/a 6. OFFERED JANNA FOR SOONER APPOINTMENT? -Soonest appointment 7. PATIENT IS SCHEDULED ON/WITH: -11/16/24 2:30 Dr. Jaimes 8. WHO CALLED TO SCHEDULE APPOINTMENT? -Patient documented in this encounter [employer] 10-01-2024 Telephone encounter Note 1. IS THIS DUE TO AN ACCIDENT? -No 2. IS THIS WORKER'S COMP? PLEASE VERIFY IF THIS IS WORKERS COMP AND DOCUMENT (We do not accept any new workers comp cases) -No 3. WHAT INSURANCE? -[employer] 4. HAVE YOU EVER BEEN SEEN BY A NEUROLOGIST BEFORE? IF YES, WHO AND WHEN? IS THIS A SECOND OPINION? -No 5. ANY CHANCE OF NOW OR BEFORE YOUR APPOINTMENT? -N/a 6. OFFERED JANNA FOR SOONER APPOINTMENT? -Soonest appointment 7. PATIENT IS SCHEDULED ON/WITH: -11/16/24 2:30 Dr. Jaimes 8. WHO CALLED TO SCHEDULE APPOINTMENT? -Patient [employer] 10-01-2024 Miscellaneous Notes ----- Message from STEPHEN Kyle sent at 09/26/2024 8:27 AM EST ----- Please let pt know A1C was 8.0 highly recommend restarting glyburide twice a day as previously ordered, since high glucose is damaging to kidney, heart etc. B 12 low recommend the sl B 12 2500 mcg daily. Also due to his severe cramping he would qualify for weekly b 12 injections if interested. Cholesterol high needs to start a statin shoul be on one regardless to protect the heart. Additionally, also put in order for him to see neurology due to his severe tightness around upper abdomen and ribs. Since could be neuro related. It might help also to call their office and see how soon they can get him in. Please and thank you ----- Message ----- From: Interface - Lab Results/Orders In Sent: 09/25/2024 7:11 PM EST To: STEPHEN Martin Called and informed patient of results, mailed B12 slip to patient as he does not want to do injections. Neuro referral has been sent and he will be reaching out to them. Verbalized understanding with patient. documented in this encounter [facility] 10-01-2024 Telephone encounter Note ----- Message from STEPHEN Kyle sent at 09/26/2024 8:27 AM EST ----- Please let pt know A1C was 8.0 highly recommend restarting glyburide twice a day as previously ordered, since high glucose is damaging to kidney, heart etc. B 12 low recommend the sl B 12 2500 mcg daily. Also due to his severe cramping he would qualify for weekly b 12 injections if interested. Cholesterol high needs to start a statin shoul be on one regardless to protect the heart. Additionally, also put in order for him to see neurology due to his severe tightness around upper abdomen and ribs. Since could be neuro related. It might help also to call their office and see how soon they can get him in. Please and thank you ----- Message ----- From: Interface - Lab Results/Orders In Sent: 09/25/2024 7:11 PM EST To: STEPHEN Martin [facility] 10-01-2024 Telephone encounter Note Called and informed patient of results, mailed B12 slip to patient as he does not want to do injections. Neuro referral has been sent and he will be reaching out to them. Verbalized understanding with patient. [facility] 09-25-2024 History of Present illness Narrative Venipuncture performed in the right arm. Patient had no adverse reactions. Subjective CC: ED follow up for back pain Patient ID: Brian Tse is a 43 y.o. male. GEGE Torres presents for ED follow up for back pain. He presented to [facility] on 09/07/2024 for back/flank pain. He had complained of right flank pain, and has a history of kidney stones. He had a CT scan of the abdomen and pelvis for kidney stones and this was negative for stones. He was given IV Toradol, Zofran and IV fluids. He was given a dose of Norflex and Stuart, prior to discharge. He was diagnosed with a muscle strain. He relates severe symptoms have resolved, although does have on-going right flank pain. He takes Tylenol and ibuprofen, but only obtains mild relief. He is in the process of graduating from [employer], and states had been running quit a bit. He quit running about 3 months ago, due to toe fracture. He follows up with Dr. Quiles podiatry for this. He also relates extreme fatigue and poor sleep. He describes the back pain at this time like a dull soreness. Additionally, relates has been getting severe body cramps, which occur all over. States at times are so severe will bring him to his knees. This occurs off and on. He relates drinking a lot of fluid. He has also quit all of his diabetic medications. doesn't want to take the medications. The following portions of the patient's history were reviewed and updated as appropriate: allergies, current medications, past family history, past medical history, past social history, past surgical history, problem list, and medication reconciliation was completed including current medication and post discharge medication. Review of Systems Constitutional: Positive for activity change. HENT: Negative. Eyes: Negative. Respiratory: Negative. Cardiovascular: Negative. Gastrointestinal: Negative. Genitourinary: Positive for flank pain. Musculoskeletal: Positive for back pain and myalgias. Negative for gait problem and joint swelling. Skin: Negative. Neurological: Negative. Severe generalized cramping Hematological: Negative. Psychiatric/Behavioral: Negative. Objective Physical Exam Vitals and nursing note reviewed. Constitutional: Appearance: Normal appearance. He is well-developed. Comments: BMI: 33.64 HENT: Head: Normocephalic and atraumatic. Right Ear: Hearing and external ear normal. Left Ear: Hearing and external ear normal. Nose: Nose normal. No rhinorrhea. Mouth/Throat: Lips: [place]. Mouth: Mucous membranes are moist. Pharynx: Oropharynx is clear. Uvula midline. No oropharyngeal exudate. Eyes: General: Lids are normal. Conjunctiva/sclera: Conjunctivae normal. Cardiovascular: Rate and Rhythm: Normal rate and regular rhythm. Pulses: Normal pulses. Heart sounds: Normal heart sounds. Pulmonary: Effort: Pulmonary effort is normal. Breath sounds: Normal breath sounds and air entry. Abdominal: General: There is no distension. Palpations: Abdomen is soft. There is no mass. Tenderness: There is no abdominal tenderness. There is no right CVA tenderness, left CVA tenderness or guarding. Musculoskeletal: General: Normal range of motion. Cervical back: Normal range of motion and neck supple. No tenderness. Right lower leg: No edema. Left lower leg: No edema. Lymphadenopathy: Cervical: No cervical adenopathy. Skin: General: Skin is warm and dry. Neurological: General: No focal deficit present. Mental Status: He is alert and oriented to person, place, and time. Psychiatric: Mood and Affect: Mood normal. Behavior: Behavior normal. Assessment/Plan Obtain lumbar x-rays CBC, CMP, A1C, Lipid/thyroid profile Vitamin B 12, Vitamin D25, Magnesium Pyridoxine 100 mg 1 po daily Recommend follow up in 3 months, sooner if needed Refusing diabetic medications Brian was seen today for er follow-up. Diagnoses and all orders for this visit: Lumbar spine pain - X-ray spine lumbar ap, lateral, flexion and extension only; Future - CBC auto differential; Future - Comprehensive metabolic panel; Future - Hemoglobin A1c; Future - Lipid profile; Future - Thyroid profile includes TSH FT4; Future - Vitamin B12; Future - Vitamin D 25 hydroxy; Future - Magnesium; Future Cramping of feet - CBC auto differential; Future - Comprehensive metabolic panel; Future - Hemoglobin A1c; Future - Lipid profile; Future - Thyroid profile includes TSH FT4; Future - Vitamin B12; Future - Vitamin D 25 hydroxy; Future - Magnesium; Future - pyridoxine, vitamin B6, (vitamin B-6) 100 mg tablet; Take 1 tablet (100 mg total) by mouth in the morning. Cramp and spasm - CBC auto differential; Future - Comprehensive metabolic panel; Future - Hemoglobin A1c; Future - Lipid profile; Future - Thyroid profile includes TSH FT4; Future - Vitamin B12; Future - Vitamin D 25 hydroxy; Future - Magnesium; Future - pyridoxine, vitamin B6, (vitamin B-6) 100 mg tablet; Take 1 tablet (100 mg total) by mouth in the morning. Diabetic peripheral neuropathy associated with type 2 diabetes mellitus (CMS-HCC) - CBC auto differential; Future - Comprehensive metabolic panel; Future - Hemoglobin A1c; Future - Lipid profile; Future - Thyroid profile includes TSH FT4; Future - Vitamin B12; Future - Vitamin D 25 hydroxy; Future - Magnesium; Future Obesity with body mass index 30 or greater - CBC auto differential; Future - Comprehensive metabolic panel; Future - Hemoglobin A1c; Future - Lipid profile; Future - Thyroid profile includes TSH FT4; Future - Vitamin B12; Future - Vitamin D 25 hydroxy; Future - Magnesium; Future Sleep disturbance - CBC auto differential; Future - Comprehensive metabolic panel; Future - Hemoglobin A1c; Future - Lipid profile; Future - Thyroid profile includes TSH FT4; Future - Vitamin B12; Future - Vitamin D 25 hydroxy; Future - Magnesium; Future STEPHEN Martin 09/25/24 1515 documented in this encounter [facility] [employer] 05-07-2024 History of Present illness Narrative Images [...] Past Medical History: Diagnosis Date Diabetes mellitus ([facility]) Medications: Current Outpatient Medications: glyBURIDE [...] < 3 seconds Digits 1-5 bilateral NEURO: Shelton Alisa 5.07 monofilament was intact B/L. Vibratory sensation was intact B/L Musculoskeletal: Muscle strength was +5 over 5 all intrinsic and extrinsic muscles tested. ASSESSMENT 1. Abscess of toe, right 2. Contusion of right foot, initial encounter 3. Right foot pain 4. Type II diabetes mellitus with neurological manifestations ([facility]) PLAN I educated the patient [...] ulcerations. ALEXIS Sawyer documented in this encounter [facility] 02-14-2024 Hospital Discharge instructions Patient Education 02/14/2024 [...] by your health care provider. Follow the mortgage protection specialist's instructions for use. Tighten and properly [...] provider. Document Revised: 05/04/2021 Document Reviewed: 05/04/2021 [employer] Patient Education 2022 [employer]. 02/14/2024 17:04:58 Foot Sprain Foot Sprain A [...] cast on your foot. General instructions Take okgd-hwl-jccfokm and prescription medicines only as told by [...] provider. Document Revised: 10/31/2020 Document Reviewed: 10/31/2020 [employer] Patient Education 2022 [employer]. Follow Up Care 02/14/2024 15:59:39 With:SALBADOR HERNANDEZ Address: [address] [place] [phone] Business (1) When:02/17/2024 16:55:32 Comments:Return to the emergency room if your pain gets worse or any new symptoms. [facility] 07-23-2024 Note ED Patient Education Note Orthopedics How [...] your health care provider. ? Follow the mortgage protection specialist's instructions for use. ? Tighten and [...] provider. Document Revised: 05/04/2021 Document Reviewed: 05/04/2021 [employer] Patient Education ? 2022 [employer] Foot Sprain A foot sprain is an [...] You may put (more content not included)... [facility] 02-14-2024 Evaluation + Plan note Extrac ekaterina from: Title:ED Note Author:Reddy Thao M.D. te:02/14/24 1. Sprain of left foot (S93. 602A: Unspecified sprain of left foot, initial encounter) Orders: ibuprofen, 600 mg = 1 tab(s), Tab, Oral, Once, Stop date 02/14/24 16:22:00 EDT, STAT, Start date 02/14/24 16:22:00 EDT, 02/14/24 16:22:00 EDT Post-op Shoe XR Foot 3+ Views Left [facility]04-29-2024 Miscellaneous Notes* Telephone Encounter - India Graf CMA - 11/21/2023 11:18 AM EDT Pharmacy requesting refill for 90 days [facility] Note* Telephone Encounter - India Graf CMA - 11/21/2023 11:18 AM EDT Pharmacy requesting refill for 90 days please [facility]04[facility]24 History of Present illness Narrative* Compa Waite APRN-GENEVA - 2023 11:45 AM EDT Subjective Patient ID: Brian Tse is a 42 y.o. male. GEGE Torres presents to the office for physical exam as he is in the [employer] at [employer]. He will finish at the end of [...] complication, without long-term current use of insulin ([facility]) - blood sugar diagnostic (glucose [...] STEPHEN Ochoa 10/27/23 1548 documented [facility] Hospital[facility]th[facility] [id number] Evaluation note* Encounter Date Diagnosis Assessment Notes [...] worsening. Patient verbalized understanding of treatment plan. [facility] Other 04-13-2023 Hospital Discharge instructions Follow Up Care 11/04/2022 10:27:15 With:BRAYDEN CORONEL, NAVIN Aranda Address: [facility] [address] [place] [phone] When: Unknown [facility] 2022 Hospital Discharge instructions Patient Education 05/20/2022 14:32:40 Post Op Patient Instructions - FT (CUSTOM) Follow Up Care 04/27/2022 09:44:58 With:Nicky CHRISTINA Address: [address] [place] [address], [facility] [address] [phone]- Business (1) When:7 to 10 days [facility]09-30-2022 Hospital Discharge instructions Patient Education 04/23/2022 12:05:06 Kidney Stones, Kchx-ov-Vxfw Kidney Stones Kidney stones are rock-like masses [...] Follow these instructions at home: Medicines Take kalv-kom-uisvcfr and prescription medicines only as told by [...] 12/27/2008 Document Revised: 11/27/2019 Document Reviewed: 11/27/2019 [employer] Patient Education 2019 [employer] Follow Up Care 04/22/2022 09:22:48 With:Patrick OWEN MD, URL Address: [address] [place], [place] [id number]- When: Unknown [facility] evaluation + Plan note Future Appointments Appointment Date:04/27/2022 09:00:00 AM Scheduled Provider:Nicky CHRISTINA MD Location:[facility] Appointment Type:[place] [address] Appointment Date:10/22/2022 08:45:00 AM Scheduled Provider:Patrick OWEN MD Location:[facility] Appointment Type:URO Office Visit Diagnostic Tests Pending * Calculi Analysis Urinary 04/23/22 [facility] evaluation + Plan note Future Appointments Appointment Date:05/13/2022 12:30:00 PM Scheduled Provider: Location:[facility] Appointment Type:Surgical PAT FT Appointment Date:05/13/2022 01:30:00 PM Scheduled Provider: Location:[facility] Appointment Type:Surgery PAT COVID Testing Appointment Date:05/20/2022 11:30:00 AM Scheduled Provider: Location:[facility] Appointment Type:Surgery FT Appointment Date:10/22/2022 08:45:00 AM Scheduled Provider:Patrick OWEN MD Location:[facility] Appointment Type:URO Office Visit [facility] General Surgery [place] Evaluation + Plan note Future Appointments Appointment Date:05/20/2022 11:30:00 AM Scheduled Provider: Location:[facility] Appointment Type:Surgery FT Appointment Date:10/22/2022 08:45:00 AM Scheduled Provider:Patrick OWEN MD Location:[facility] Appointment Type:URO [facility] Future Appointments Appointment Date:10/22/2022 08:45:00 AM Scheduled Provider:[facility] Future Appointments Appointment Date:06/22/2022 02:40:00 PM Scheduled Provider:Nicky CHRISTINA MD Location:[facility] Appointment Type:GS Post Op 15 Appointment Date:10/22/2022 08:45:00 AM Scheduled Provider:Patrick OWEN MD Location:[facility] Appointment Type:URO Office Visit General Surgery [place] Evaluation noteNo assessment information available [facility] Work Phone: Evaluation noteNo InformationNort [employer] Other Evaluation note* Diagnosis Type II diabetes mellitus with neurological manifestations (CMS/HCC)- Primary Type II or unspecified type diabetes mellitus with neurological manifestations, not stated as uncontrolled Abscess of toe, right Contusion of right foot, initial encounter Right foot pain Pain in soft tissues of limb documented in this encounter [facility] HealthcareEvaluation note* Diagnosis Type 2 diabetes mellitus without complication, without long-term current use of insulin ([facility]) documented in this encounter [facility] SystemEvaluation note* Diagnosis Encounter for occupational physical examination- Primary Type 2 diabetes mellitus without complication, without long-term current use of insulin ([facility]) Anxiety Anxiety state, unspecified Sleep disturbance Unspecified sleep disturbance [facility]* Diagnosis Cramp and spasm- Primary Lumbar spine pain Cramping of feet Cramp of limb Diabetic peripheral neuropathy associated with type 2 diabetes mellitus ([facility]) Obesity with body mass index 30 or greater Sleep disturbance Unspecified sleep disturbance documented in this encounter [facility]* Diagnosis Vitamin B12 deficiency- Primary Other B-complex deficiencies Low serum vitamin D Elevated triglycerides with high cholesterol Mixed hyperlipidemia Dysesthesia affecting both sides of body documented in this encounter [facility] SystemHistory general Narrative - Reported* Type Description Date Medical History Diabetes Medical History Renal calculi Medical History Hematochezia Surgical History CHOLECYSTECTOMY Surgical History HEMORRHOIDECTOMY Surgical History Foot Surgery Surgical History bunionectomy [facility] Other Hospital course Narrative No data available for this section [facility] Hospital Discharge instructions No data available for this section [facility] General Surgery [place] InstructionsNot on filedocumented in this encounter [facility] System[facility]ructionsNot on filedocumented in this encounter [facility] SystemInstructionsNot on filedocumented in this encounter [facility] SystemInstructionsNot on filedocumented in this encounter [facility] SystemInstructions* Attachments The following attachments cannot be sent through Care Everywhere. * Diabetes Exchange Diet (Namibian) documented in this encounterProMedica Health SystemInstructionsNot on file documented in this encounterProMedica Health SystemInstructionsNot on file documented in this encounterProMedica Health SystemInstructionsNot on file documented in this encounterProMedica Health SystemProgress note No data available for this section [facility] Summary Purpose Family History No Family [...] Diagnosis: Phimosis, N47.1 Surgeon: Nicky Garay Resident/Fellow/Other Gas Furnace Installer: Radha Madrigal Procedure: 1. CIRCUMCISION Anesthesia: No [...] section and content) DATE CREATED AUTHOR 01/12/2018 [facility] DATE CREATED AUTHOR AUTHOR'S ORGANIZ ATION 09/16/2020 [facility] DATE CREATED AUTHOR AUTHOR'S ORGANIZ ATION 11/04/2020 [facility] DATE CREATED AUTHOR AUTHOR'S ORGANIZ ATION 11/04/2020 [employer] DATE CREATED AUTHOR AUTHOR'S ORGANIZ ATION 12/04/2022 [facility] DATE CREATED AUTHOR AUTHOR'S ORGANIZ ATION 12/06/2022 [facility] DATE CREATED AUTHOR AUTHOR'S ORGANIZ ATION 05/26/2024 [facility] DATE CREATED AUTHOR AUTHOR'S ORGANIZ ATION 09/27/2024 [facility] DATE CREATED AUTHOR AUTHOR'S ORGANIZ ATION 09/27/2024 [facility] DATE CREATED AUTHOR AUTHOR'S ORGANIZ ATION 10/12/2024 [facility] Care Team (unrecognized sect ion and content) Team Status: Active Member Role Status Dates Jude Ruvalcaba III , DO Primary Care Provider Active Team Status: Inactive Member Role Status Dates Jude Ruvalcaba III , DO Primary Care Provider Active Domonique Myers APRN Attending Provider Active Cotton Expert Relationship Specialty Start Date End Date Unallocated, Lorna Wilkins MD [facility] [place] [address] PCP - General Family Medicine 05/04/24 Cotton Expert Relationship Specialty Start Date End Date Unallocated, Lorna Wilkins MD [facility] [place] [address] PCP - General Family Medicine 05/04/24 Cotton Expert Relationship Specialty Start Date End Date Compa Waite APRN-LEGAL FINANCIAL SPECIALIST PCP - General Nurse Practitioner 07/04/23 Cotton Expert Relationship Specialty Start Date End Date Compa Waite APRN-CNP PCP - General Nurse Practitioner 07/04/23 Cotton Expert Relationship Specialty Start Date End Date Compa Waite APRN-CNP PCP - General Nurse Practitioner 07/04/23 Cotton Expert Relationship Specialty Start Date End Date Compa Waite APRN-CNP PCP - General Nurse Practitioner 07/04/23 Cotton Expert Relationship Specialty Start Date End Date Compa Waite APRN-CNP PCP - General Nurse Practitioner 07/04/23 Cotton Expert Relationship Specialty Start Date End Date Compa Waite APRN-CNP PCP - General Nurse Practitioner 07/04/23 Cotton Expert Relationship Specialty Start Date End Date Compa Waite APRN-CNP PCP - General Nurse Practitioner 07/04/23 Cotton Expert Relationship Specialty Start Date End Date Compa Waite APRN-CNP PCP - General Nurse Practitioner 07/04/23 Goals (unrecognized section and content) Goals may be documented in a n alternate section REASON FOR VISIT (unrecogniz ed section and content) Reason Comments Ingrown Toenail RT grt nail injury Reason Comments Med Refill Reason Comments Annual Exam Reason Comments Er Follow-up Reason Onset Date Comments New Patient 10/01/2024 FOR RECORDS PERTAINING TO PATIENTS WHO ARE [...] BE BASED ON THE PRIMARY CLINICAL RECORDS. [facility]. provides no warranty or guarantee of the accuracy or completeness of information in this document.
[2024-10-23 11:50] LABS: Basophils Absolute Auto 0.1 10^3/uL (0.0-0.1); Basophils Percent Auto 0.6 % (0.2-2.0); Eosinophils Absolute Auto 0.3 10^3/uL (0.0-0.7); Eosinophils Percent Auto 2.6 % (0.9-7.0); Hematocrit 45.8 % (42.0-54.0); Hemoglobin 15.5 g/dL (14.0-18.0); Immature Granulocytes Abs Auto 0.03 10^3/uL (0.00-0.03); Immature Granulocytes Pct Auto 0.3 % (0.0-0.5); Lymphocytes Absolute Auto 3.1 10^3/uL (1.2-3.8); Lymphocytes Percent Auto 29.9 % (20.5-60.0); Mean Corpuscular HGB Conc 33.8 g/dL (29.9-35.2); Mean Corpuscular Volume 88.6 fL (80.0-94.0); Mean Platelet Volume 11.3 fL (9.5-13.5); Monocytes Absolute Auto 0.8 10^3/uL (0.3-0.8); Monocytes Percent Auto 7.3 % (1.7-12.0); Neutrophils Absolute Auto 6.1 10^3/uL (1.4-6.5); Neutrophils Percent Auto 59.3 % (43.0-75.0); Platelet Count 240 10^3/uL (150-450); Red Blood Count 5.17 10^6/uL (4.70-6.10); Red Cell Distribution Width 13.8 % (11.0-15.0); White Blood Count 10.3 10^3/uL (4.0-11.0)
[2024-10-23 12:13] LABS: Anion Gap 16.8; BUN Creatinine Ratio 12.3; Calcium 8.8 mg/dL (8.5-10.1); Carbon Dioxide 24.3 mmol/L (21.0-32.0); Chloride 105 mmol/L (98-107); Estimated GFR (African America >60 (>=60 mL/min/1.73m^2); Estimated GFR (Non-African Ame >60 (>=60 mL/min/1.73m^2); Glucose 200 mg/dL (74-106); Potassium 4.1 mmol/L (3.5-5.1); Sodium 142 mmol/L (136-145)
== END 2024-10-23 10:24 | disposition home or self-care (01) ==
LOC: CARD 10:23
PROVIDERS: PCP Nurse Practitioner Family; Visit Provider Podiatrist Foot & Ankle Surgery
DX: Z01.810 Encounter for preprocedural cardiovascular examination (principal)
CPT/HCPCS: 36415; 80048; 85025; 93005

== ENCOUNTER 2025-02-06 22:47 | Emergency (ER) | payer OTHER, SELFPAY ==
--- OUTSIDE RECORDS SUMMARY | 2025-02-06 22:54 | XMS_ITS | CCD ---
Author Organization [facility] Care Team Providers Care Steward Dishwasher Name Role Phone NAHOMY SHARP (MAZIN) Unavailable Unavailable Jude Ruvalcaba III Primary Care Physician SALBADOR BOOKER Primary Care Physician [phone] DO Jude Ruvalcaba III Primary Care Provider [...] Myers Admitting Unavailable Domonique Myers Attending Unavailable Jordon III, Jude R Primary Care Unavailroxie MartinoGeorgia barrett Unavailable SALBADOR BOOKER Primary Care Physician SALBADOR BOOKER Primary Care Physician Unallocated MD, [facility] Provider Primary Care Provi devora Reddy Thao Attending Unavailable Waite [employer] GENERAL[facility], [facility] Primary Care Provider WAITE, COMPA Attending Unavailable WAITE, COMPA Referring Unavailable WAITE, [facility] Primary Care Unavailable KEITH, JUANITA A Attending Unavailable WAITE, COMPA Referring Unavailable WAITE, [facility] Primary Care Unavailable KEITH, JUANITA A Referring Unavailable WAITE, [facility] Primary Care Unavailable DOLCE, DON D Attending Unavailable DOLCE, DON D Referring Unavailable DOLCE, DON D Attending Unavailable DOLCE, DON D Attending Unavailable DOLCE, DON D Referring Unavailable DOLCE, DON D Attending Unavailable DOLCE, DON D Attending Unavailable DOLCE, DON D Referring Unavailable DOLCE, DON D Attending Unavailable DOLCE, DON D Referring Unavailable DOLCE, DON D Attending Unavailable DOLCE, DON D Referring Unavailable DOLCE, DON D Attending Unavailable [place]ite [facility]P[employer] CH[facility] GENERAL[facility], [facility] Primary Care Provider Allergies Allergy Classification Reported Allergen(s) Allergy Type Date of Onset Reaction(s) Facility metFORMIN (1 source) metFORMIN; Translations: [metformin] Drug Allergy Diarrhea (finding) [facility] (20 sources) metFORMIN; Translations: [metformin] Drug Allergy 3 Diarrhea (finding), Diarrhea [facility] (1 source) metFORMIN Drug Allergy [facility] (20 sources) varenicline Drug Allergy 8 [facility] (1 source) Acetaminophen / oxyCODONE; Translations: [Percocet 5/325] Drug Allergy [facility] Repository (1 source) No Known Medication Allergies; Translations: [No Known Medication Allergies] Propensity to adverse reactions (disorder) [facility] Repository Medications Current Medications Medication Drug Class(es) Dates Sig (Normalized) Sig (Original) acetaminophen 325 mg / oxyCODONE hydrochloride 5 mg oral tablet (4 sources) Opioid Agonist Start: 10-31-2024 End: 11-11-2024 oxyCODONE-acetamin ophen (Percocet) 5-325 MG tablet Indications: Pain Take 1 tablet by mouth every 6 (six) hours if needed for severe pain for up to 5 days TAKE 1 PILL P.O. Q.6H P.R.N. PAIN 15 tablet 11/06/2024 11/11/2024 Active Start: 05-20-2022 End: 05-25-2022 Percocet 325 mg-5 mg Tab 1 t ab(s), Oral, q3hr Pain, 20 tab(s), Refill(s) 0, take with food or milk, [facility]pharmacy #[id number], 180, cm, 05/13/22 12:43:00 EDT, [...] Dec, Active atorvastatin 20 mg oral tablet (4 sources) HMG-CoA Reductase Inhibitor Start: 09-26-2024 take 1 tablet by mouth in the morning atorvastatin (LIPITOR) 20 mg tablet Indications: Elevated triglycerides with high cholesterol Take 1 tablet (20 mg total) by mouth in the morning. 90 tablet 1 09/26/2024 Active blood-glucose meter (glucose monitoring kit) kit (9 sources) Start: 07-05-2023 blood-glucose meter (glucose monitoring kit) kit Use as instructed 1 each 07/05/2023 Active Start: 07-05-2023 blood-glucose meter (glucose monitoring kit) kit Use as instructed 1 each 0 07/05/2023 Active 24 hr buPROPion hydrochloride 150 mg extended release oral tablet (9 sources) Aminoketone Start: 2023 End: 11-21-2023 take [...] Ordered 0.5 ml dulaglutide 1.5 mg/ml auto-injector (15 sources) GLP-1 Receptor Agonist Start: 07-05-2023 End: 2023 dulaglutide (TRULICITY) 0.75 mg/0.5 mL pen injector Inject 0.5 mL (0.75 mg total) under the skin every 7 days. 2 mL 2023 Active Start: 01-29-2020 Dulaglutide (T rulicity) 0.75 mg/0.5 mL pen injector Active 0.75 MG SUBCUT As Directed January 29, 2020 12:00am Start: 07-26-2018 Trulicity Pen SubCutaneous, Refills(s) 0 Start Date: 07/26/18 Status: Ordered Juniorulicity Palmer-Andrew king Ema Active ergocalciferol 1.25 mg oral capsule (4 sources) Provitamin D2 Compound Start: 09-26-2024 take [...] days, # 2 tab(s), Refills(s) 0, Pharmacy: [facility], 173, cm, 07/30/20 10:33:00 EST, Height/Length Dosing, 109.1, kg, 07/30/20 10:33:00 EST, Weight Dosing Start Date: 07/30/20 Status: Ordered glyBURIDE 5 mg oral tablet (20 sources) Sulfonylurea Start: 07-04-2023 End: 01-23-2024 take 1 tablet by mouth once daily at mealtime glyBURIDE (DIABETA) 5 mg tablet Indications: Type 2 diabetes mellitus without complication, without long-term current use of insulin ([facility]) TAKE 1 TABLET BY MOUTH EVERY MORNING [...] to the affected skin and rub in, [facility], 173, cm, 07/30/20 10:33:00 EST, Height/Length Dosing, 109.1, kg, 07/30/20 10:33:00 EST, Weight Dosing Start Date: 07/30/20 Status: Ordered ibuprofen 800 mg oral tablet (1 source) Nonsteroidal Anti-inflammatory Drug Start: 07-30-2020 take 1 mg by mouth three times daily ibuprofen 800 mg Tab mg tab(s), Oral, TID, Refills(s) 0 Start Date: 07/30/20 Status: Ordered ketoconazole 20 mg/ml topical cream (11 sources) Azole Antifungal Start: 11-06-2024 End: 12-06-2024 ketoconazole (NIZOral) 2 % cream Indications: Tinea Pedis Apply topically Daily Apply daily 30 g 1 11/06/2024 12/06/2024 Active ketorolac tromethamine 10 mg oral tablet (1 source) Nonsteroidal Anti-inflammatory Drug, Cyclooxygenase Inhibitor Start: 07-30-2020 take 1 tablet by mouth every eight hours as needed for pain ketorolac 10 mg Tab 10 mg = 1 tab(s), Oral, q8hr, PRN for pain, take with food, # 12 tab(s), Refills(s) 0, Pharmacy: [facility], 173, cm, 07/30/20 10:33:00 EST, Height/Length Dosing, 109.1, kg, 07/30/20 10:33:00 EST, Weight Dosing Start Date: 07/30/20 Status: Ordered Lidocaine (1 source) Antiarrhythmic, Amide Local Anesthetic Start: 07-30-2020 lidocaine Top 4% Crm 1 janna, Topical, BID pain, 15 gm, Refill(s) 0, [facility], 173, cm, 07/30/20 10:33:00 EST, Height/Length [...] Ordered Start: 02-04-2020 take 1 capsule by [facility] every twelve hours Omeprazole 40 MG 1 capsule Orally bid for 10 day(s) Jan, Not-Taking SITagliptin 100 mg oral tablet (4 sources) Dipeptidyl Peptidase 4 Inhibitor Start: 01-29-2020 take 1 tablet by mouth once daily Januvia 100 mg Tab 100 mg = 1 tab(s), Oral, Daily, # 30 tab(s), Refills(s) 0 Start Date: 09/11/20 Status: Ordered traZODone hydrochloride 50 mg oral tablet (9 sources) Serotonin Reuptake Inhibitor Start: 2023 End: 11-21-2023 take 1 tablet by mouth once daily traZODone (DESYREL) 50 mg tablet Take 1 tablet (50 mg total) by mouth nightly. 90 tablet 1 11/21/2023 Active vitamin b12 2.5 mg sublingual tablet (4 sources) Vitamin B12 Start: 09-26-2024 take 1 tablet under the tongue once daily cyanocobalamin, vitamin B-12, 2,500 mcg tablet, sublingual Indications: Vitamin B12 deficiency Place 1 tablet under the tongue once daily. 90 tablet 1 09/26/2024 Active vitamin b6 100 mg oral tablet (5 sources) Start: 09-25-2024 take 1 tablet by [...] 10 day(s) Jan, Not-Taking polyethylene glycol [id number] mg / potassium chloride 2970 mg / sodium bicarbonate 6740 mg / sodium chloride 5860 mg / sodium sulfate 28990 mg powder for oral solution (4 sources) [...] pain] Onset: 04-04-20 Episodic Acquired foot deformities (11 sources) Hallux valgus; Translations: [Hallux valgus (acquired), unspecified foot] Onset: 09-09-19 22 03-08-2018 Chronic Acquired foot deformities (19 sources) Hallux valgus interphalangeus; Translations: [Hallux valgus (acquired), left foot] 2024 Chronic Anxiety disorders (9 sources) Anxiety; Translations: [Anxiety disorder, unspecified] Onset: 10-27-19 24 2023 Chronic Calculus of urinary tract (20 sources) Ureteric stone; Translations: [Calculus of ureter] Onset: 04-23-20 Episodic Complication of device; implant or graft (2 sources) Pain due to internal prosthetic device; Translations: [Pain due to internal orthopedic prosthetic devices, implants and grafts, initial encounter] 11-20-2024 Episodic Diabetes mellitus with complications (16 sources) Disorder of nervous system due to type 2 diabetes mellitus; Translations: [Type 2 diabetes mellitus with other diabetic neurological complication] Onset: 09-09-1905-07-2024 Chronic Disorders of lipid metabolism (5 sources) Mixed hypercholesterolemia and hypertriglyceridemia; Translations: [Mixed hyperlipidemia] Onset: 09-27-1909-26-2024 Chronic Disorders of teeth and jaw (1 source) Acute gingivitis, plaque induced Episodic Esophageal disorders (2 sources) Gastroesophageal reflux disease; Translations: [Gastro-esophageal reflux disease without esophagitis] Chronic Gastrointestinal hemorrhage (5 sources) Rectal hemorrhage; Translations: [Hematochezia] Onset: 12-01-1903-08-2018 Episodic Hemorrhoids (2 sources) Hemorrhoids 03-08-2018 Episodic Mood disorders (8 sources) Major depression, single episode 09-11-2020 Chronic Nausea and vomiting (4 sources) Nausea; Translations: [Nausea] Episodic Osteoarthritis (9 sources) Arthritis of right acromioclavicular joint; Translations: [Primary osteoarthritis, right shoulder] Onset: 10-15-1909-09-2021 Chronic Other acquired deformities (2 sources) Contracture of joint of right ankle; Translations: [Contracture, right ankle] 11-06-2024 Chronic Other aftercare (1 source) alf (current) use of oral hypoglycemic drugs; Translations: [FDC USE ORAL 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 DX] Onset: 11-02-19 Episodic Other connective tissue disease (2 sources) Pain in right foot; Translations: [Pain in right foot] 05-07-2024 Episodic Other connective tissue disease (2 sources) Cramp and spasm; Translations: [Cramp and spasm] Onset: 09-26-19 Episodic Other connective tissue disease (6 sources) Pain in left foot; Translations: [Pain in left foot] 11-06-2024 Episodic Other gastrointestinal disorders (2 sources) Diarrhea; Translations: [Diarrhea, unspecified] Episodic Other gastrointestinal disorders (2 sources) Abnormal frequency of defecation; Translations: [Change in bowel habit] Episodic Other gastrointestinal disorders (2 sources) Rectal discharge; Translations: [Other specified symptoms and signs involving the digestive system and abdomen] Episodic Other liver diseases (8 sources) Elevated liver enzymes level 09-11-2020 Episodic Other nervous system disorders (9 sources) Mortons neuroma of right foot; Translations: [Lesion of plantar nerve, right lower limb] Onset: 09-09-19 22 09-09-2021 Chronic Other nervous system disorders (9 sources) Plantar nerve lesion; Translations: [Lesion of plantar nerve, unspecified lower limb] Onset: 09-09-19 22 09-09-2021 Chronic Other nutritional; endocrine; and metabolic disorders (20 sources) Body mass index 30+ - obesity; Translations: [Body mass index (BMI) 30.0-30.9, adult] Onset: 09-09-1907-30-2020 Chronic Other nutritional; endocrine; and metabolic disorders (2 sources) Obesity, unspecified; Translations: [Obesity, unspecified] Onset: 09-09-19 Chronic Pneumonia (except that caused by tuberculosis [...] ABSENCE OTH PART DIGESTV TRACT] Onset: 11-02-19 23 Episodic Screening and history of mental health and substance abuse codes (6 sources) Tobacco use and exposure - finding 04-28-2022 Chronic Skin and subcutaneous tissue infections (2 sources) Abscess of toe of right foot; Translations: [Cutaneous abscess of right foot] 05-07-2024 Episodic Substance-related disorders (20 sources) Smoker; Translations: [...] 09-25-2024 07-30-2020 Chronic Fever of unknown origin (11 sources) Fever; Translations: [Fever, unspecified] Onset: 09-09-2021 Resolved: 09-25-2024 07-30-2020 Episodic Headache; including migraine (13 sources) Chronic headache disorder; Translations: [Headache] Onset: 09-09-2021 03-08-2018 Episodic Mood disorders (10 sources) Mood disorders; Translations: [DEPRESSION UNSPECIFIED] Onset: 07-04-2023 Resolved: 09-25-2024 07-04-2023 Mycoses (20 sources) Candidal balano-posthitis; Translations: [Other urogenital candidiasis] Onset: 09-09-2021 07-30-2020 Episodic Nonspecific chest pain (4 sources) Other chest pain; Translations: [OTHER CHEST PAIN] Onset: 02-17-2022 Episodic Nutritional deficiencies (5 sources) Cobalamin deficiency; Translations: [Deficiency of other specified B group vitamins] Onset: 09-26-2024 09-26-2024 Episodic Other circulatory disease (11 sources) Elevated blood pressure; Translations: [Elevated blood-pressure reading, without diagnosis of hypertension] Onset: 09-09-2021 Resolved: 09-25-2024 07-30-2020 Episodic Other connective tissue disease (9 sources) Tendonitis of right shoulder; Translations: [Other enthesopathies, not elsewhere classified] Onset: 10-14-2017 09-09-2021 Episodic Other connective tissue disease (6 sources) Cramp in foot; Translations: [Cramp and spasm] Onset: 09-25-2024 09-25-2024 Episodic Other connective tissue disease (6 sources) Spasm; Translations: [Cramp and spasm] Onset: 09-25-2024 09-25-2024 Episodic Other nervous system disorders (6 sources) Dysesthesia; Translations: [Other disturbances of skin sensation] Onset: 09-26-2024 09-26-2024 Episodic Other screening for suspected conditions (not mental disorders or infectious disease) (5 sources) Decreased vitamin D; Translations: [Other specified abnormal findings of blood chemistry] Onset: 09-26-2024 09-26-2024 Episodic Residual codes; unclassified (10 sources) Disturbance in sleep behavior; Translations: [Sleep disorder, unspecified] Onset: 2023 2023 Episodic Residual codes; unclassified (2 sources) Sleep disorder, unspecified; Translations: [Sleep disorder, unspecified] Onset: 2023 Episodic Spondylosis; intervertebral disc disorders; other back problems (6 sources) Pain in lumbar spine ; Translations: [Lumbar spine pain] Onset: 09-25-2024 09-25-2024 Episodic Sprains and strains (10 sources) Sprain of left foot; Translations: [Unspecified sprain of left foot, initial encounter] Onset: 10-14-2017 Episodic Unclassified (9 sources) Onset: 12-16-2022 12-16-2022 Results Test Name Value Interpretation Reference Range Facility XR Foot - left 3 [facility] Result: Three views were taken today AP/MO/LAT foot: No fractures or dislocations seen excellent position alignment left foot great toe in good position trabeculation noted across the osteotomy osteotomy appears to be healed [facility] XR Foot - left 3 [facility] Study observation (narrative) [facility] XR Foot - left 3 [facility] Result: Three views were taken today AP/MO/LAT foot: No fractures or dislocations seen excellent position alignment left foot great toe in good position trabeculation noted across the osteotomy [facility] Radiology Study observation (narrative) [facility] XR Foot - left 3 [facility] Result: Three views were taken today AP/MO/LAT foot: No fractures or dislocations seen excellent position alignment left foot great toe in good position K-wire is migrating slightly [facility] Radiology Study observation (narrative) [facility] XR Foot - left 3 [facility] Result: Radiographs: AP/MO/LAT: fixation intact excellent position alignment of the lesser digits. [facility] Radiology Study observation (narrative) [facility] ALL CBC WITH AUTO DIFFon BASOPHILS ABSOLUTE AUTO 0.1 [facility] Basophils/100 WBC (Bld) 0.6 % 0.2 - 2.0 % [facility] Eosinophils/100 WBC (Bld) 2.6 % 0.9 - 7.0 % [facility] Erythrocyte distribution width (RBC) [Ratio] 13.8 % 11.0 - 15.0 % [facility] Hematocrit (Bld) [Volume fraction] 45.8 % 42.0 - 54.0 % [facility] Hemoglobin (Bld) [Mass/Vol] 15.5 g/dL 14.0 - 18.0 g/dL [facility] IMMATURE GRANULOCYTES ABS AUTO 0.03 [facility] Immature granulocytes/100 WBC (Bld) 0.3 % 0.0 - 0.5 % [facility] LYMPHOCYTES ABSOLUTE AUTO 3.1 [facility] Lymphocytes/100 WBC (Bld) 29.9 % 20.5 - 60.0 % [facility] MCH (RBC) [Entitic mass] 30 pg 25.9 - 34.0 pg [facility] MCHC (RBC) [Mass/Vol] 33.8 g/dL 29.9 - 35.2 g/dL [facility] MCV (RBC) [Entitic vol] 88.6 fL 80.0 - 94.0 fL [facility] MONOCYTES ABSOLUTE AUTO 0.8 [facility] Monocytes/100 WBC (Bld) 7.3 % 1.7 - 12.0 % [facility] NEUTROPHILS ABSOLUTE AUTO 6.1 [facility] Neutrophils/100 WBC (Bld) 59.3 % 43.0 - 75.0 % [facility] Platelet mean volume (Bld) [Entitic vol] 11.3 fL 9.5 - 13.5 fL [facility] TBH EO # 0.3 [facility] TB PLT 240 [facility] TB RBC 5.17 [facility] WBC 10.3 [facility] ECG 12-LEADon 10-23-2024 [place] [address] Electrocardiograph Report Signed Patient: BRIAN TSE MR#: [id number] : 1980 Acct:[id number] Age/Sex: 43 / M ADM Date: 10/23/24 Loc: CARD Attending Dr: DON SANTOS M.D. Ordering Physician: DON SANTOS M.D. Date of Service: 10/23/24 Procedure(s): ECG 12 lead Accession Number(s): [id number] cc: [facility] Test Date: 2024-10-23 Pat Name: BRIAN TSE Department: Room: - Gender: Male Translator/Interpreter: : 1980 Requested By: 0719 Order Number: [id number] Reading MD: FABI DEAN M.D. Measurements Intervals [place] Rate: 69 P: 55 DE: 155 QRS: 47 QRSD: 90 T: 27 QT: 376 QTc: 404 Interpretive Statements SINUS RHYTHM NONSPECIFIC T-WAVE ABNORMALITY Abnormal ECG Compared to ECG 10/28/2022 08:45:49 T-wave abnormality now present Electronically Signed On 10-23-2024 20:15:41 EDT by FABI DEAN M.D. 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 Ordering Physician: DON SANTOS M.D. Date of Service: 10/23/24 Procedure(s): ECG 12 lead Accession Number(s): [id number] cc: [facility] Test Date: 2024-10-23 Pat Name: BRIAN TSE Department: Room: - Gender: Male Translator/Interpreter: : 1980 Requested By: 0719 Order Number: [id number] Reading MD: FABI DEAN M.D. Measurements Intervals [place] Rate: 69 P: 55 DE: 155 QRS: 47 QRSD: 90 T: 27 QT: 376 QTc: 404 Interpretive Statements SINUS RHYTHM NONSPECIFIC T-WAVE ABNORMALITY Abnormal ECG Compared to ECG 10/28/2022 08:45:49 T-wave abnormality now present Electronically Signed On 10-23-2024 20:15:41 EDT by FABI DEAN M.D. 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: [facility] Radiology Study observation (narrative) [facility] ECG 12-LEADOrdered By: Radio logist Radiology on 10-23-2024 [facility] Work Phone: CBC AND AUTO DIFFon 09-26-19 25 ABSOLUTE BASOPHIL 0.1 X10E9/L Normal 0.0-0.2 [facility] Comment on above: Performed By: #### T HYR, CMP, 2132-9, 25008-8, CBCA, 78298-8, HA1C, 93016-8 #### [facility] ([id number]) [address], [address] [place] [address] Basophils/100 WBC (Bld) 1.0 % Normal [facility] Comment on above: Performed By: #### T HYR, CMP, 2132-03, , CBCA, 22749-1, HA1C, #### [facility] ([id number]) [address], [address] [place] [address] Eosinophils (Bld) [#/Vol] 0.3 10*3/uL Normal 0.0-0.4 [facility] Comment on above: Performed By: #### T HYR, CMP, 2132-03, , CBCA, 72590-9, HA1C, #### [facility] ([id number]) [address], [address] [place] [address] Eosinophils/100 WBC (Bld) 3.0 % Normal [facility] Comment on above: Performed By: #### T HYR, CMP, 2132-03, , CBCA, 32361-1, HA1C, #### [facility] ([id number]) [address], [address] [place] [address] Erythrocyte distribution width (RBC) [Ratio] 14.4 % Normal 11.5-15.0 [facility] Comment on above: Performed By: #### T HYR, CMP, 2132-03, , CBCA, 14235-7, HA1C, #### [facility] ([id number]) [address], [address] [place] [address] Hematocrit (Bld) [Volume fraction] 49.5 % High 39-49 [facility] Comment on above: Performed By: #### T HYR, CMP, 2132-03, , CBCA, 71761-3, HA1C, #### [facility] ([id number]) [address], [address] [place] [address] Hemoglobin (Bld) [Mass/Vol] 16.9 g/dL Normal 13.0-17.0 [facility] Comment on above: Performed By: #### T HYR, CMP, 2132-03, , CBCA, 99189-5, HA1C, #### [facility] ([id number]) [address], [address] [place] [address] LYMPHOCYTE, ATYPICAL 4.0 % Normal [facility] Comment on above: Performed By: #### T HYR, CMP, 2132-03, , CBCA, 97966-7, HA1C, #### [facility] ([id number]) [address], [address] [place] [address] Lymphocytes (Bld) [#/Vol] 2.5 10*3/uL Normal 1.0-3.5 [facility] Comment on above: Performed By: #### T HYR, CMP, 2132-03, , CBCA, 40578-9, HA1C, #### [facility] ([id number]) [address], [address] [place] [address] Lymphocytes/100 WBC (Bld) 20.0 % Normal [facility] Comment on above: Performed By: #### T HYR, CMP, 2132-03, , CBCA, 20087-4, HA1C, #### [facility] ([id number]) [address], [address] [place] [address] MCH (RBC) [Entitic mass] 30.1 pg Normal 27-34 [facility] Comment on above: Performed By: #### T HYR, CMP, 2132-03, , CBCA, 52029-6, HA1C, #### [facility] ([id number]) [address], [address] [place] [address] MCHC (RBC) [Mass/Vol] 34.1 g/dL Normal 32-36 [facility] Comment on above: Performed By: #### T HYR, CMP, 2132-03, , CBCA, 72840-2, HA1C, #### [facility] ([id number]) [address], [address] [place] [address] MCV (RBC) [Entitic vol] 88 fL Normal 80-100 [facility] Comment on above: Performed By: #### T HYR, CMP, 2132-03, , CBCA, 75372-7, HA1C, #### [facility] ([id number]) [address], [address] [place] [address] Monocytes (Bld) [#/Vol] 0.7 10*3/uL Normal 0-0.9 [facility] Comment on above: Performed By: #### T HYR, CMP, 2132-03, , CBCA, 55159-2, HA1C, #### [facility] ([id number]) [address], [address] [place] [address] Monocytes/100 WBC (Bld) 7.0 % Normal [facility] Comment on above: Performed By: #### T HYR, CMP, 2132-03, , CBCA, 38456-2, HA1C, #### [facility] ([id number]) [address], [address] [place] [address] Neutrophils (Bld) [#/Vol] 6.8 10*3/uL High 1.5-6.6 [facility] Comment on above: Performed By: #### T HYR, CMP, 2132-03, , CBCA, 43055-4, HA1C, #### [facility] ([id number]) [address], [address] [place] [address] Platelet mean volume (Bld) [Entitic vol] 9.6 fL Normal 7-12 [facility] Comment on above: Performed By: #### T HYR, CMP, 2132-03, 55247-7, CBCA, 69649-4, HA1C, #### [facility] ([id number]) [address], [address] [place] [address] Platelets (Bld) [#/Vol] 223 10*3/uL Normal 150-450 [facility] Comment on above: Performed By: #### T HYR, CMP, 2132-03, 78378-4, CBCA, 58035-8, HA1C, #### [facility] ([id number]) [address], [address] [place] [address] RBC COUNT 5.62 X10E12/L Normal 4.10-5.70 [facility] Comment on above: Performed By: #### T HYR, CMP, 2132-03, 44893-6, CBCA, 04673-6, HA1C, #### [facility] [facility] ([id number]) [address], [address] [place] [address] RBC morphology finding Nom (Bld) NORMAL Normal [facility] Comment on above: Performed By: #### T HYR, CMP, 2132-03, 81955-7, CBCA, 56316-5, HA1C, #### [facility] ([id number]) [address] [place] [address] SEG NEUTROPHIL 65.0 % Normal [facility] Comment on above: Performed By: #### T HYR, CMP, 2132-03, 66398-6, CBCA, 64914-9, HA1C, #### [facility] ([id number]) [address], [address] [place] [address] WBC (Bld) [#/Vol] 10.4 10*3/uL Normal 4.0-11.0 [facility] Comment on above: Performed By: #### T HYR, CMP, 2131-9, 01474-5, CBCA, 96922-0, HA1C, #### [facility] ([id number]) [address], [address] [place] [address] COMPREHENSIVE METABOLIC PANE Roland 09-25-2024 Albumin [Mass/Vol] 4.7 g/dL Normal 3.2-5.3 [facility] Comment on above: Performed By: #### T HYR, CMP, 2132-03, 22272-5, CBCA, 18041-5, HA1C, #### [facility] ([id number]) [address], [address] [place] [address] ALP [Catalytic activity/Vol] 77 U/L Normal 39-130 [facility] Comment on above: Performed By: #### T HYR, CMP, 9, 36853-2, CBCA, 51902-1, HA1C, #### [facility] ([id number]) [address], [address] [place] [address] ALT [Catalytic activity/Vol] 28 U/L Normal 0-40 [facility] Comment on above: Performed By: #### T HYR, CMP, 2132-03, 78876-6, CBCA, 35416-1, HA1C, #### [facility] ([id number]) [address], [address] [place] [address] Anion gap [Moles/Vol] 12 mmol/L Normal 5-15 [facility] Comment on above: Performed By: #### T HYR, CMP, 2131-9, 33602-3, CBCA, 85022-3, HA1C, 80522-8 #### [facility] ([id number]) [address], [address] [place] [address] AST [Catalytic activity/Vol] 23 U/L Normal 0-41 [facility] Comment on above: Performed By: #### T HYR, CMP, 2132-03, 02261-1, CBCA, 42001-1, HA1C, #### [facility] ([id number]) [address], [address] [place] [address] Bilirubin [Mass/Vol] 0.7 mg/dL Normal 0.3-1.2 [facility] Comment on above: Performed By: #### T HYR, CMP, 2132-03, 78740-3, CBCA, 90471-5, HA1C, #### [facility] ([id number]) [address], [address] [place] [address] Calcium [Mass/Vol] 9.5 mg/dL Normal 8.5-10.5 [facility] Comment on above: Performed By: #### T HYR, CMP, 2132-03, 30656-1, CBCA, 13507-7, HA1C, #### [facility] ([id number]) [address], [address] [place] [address] Chloride [Moles/Vol] 102 mmol/L Normal 98-109 [facility] Comment on above: Performed By: #### T HYR, CMP, 2132-03, 50439-5, CBCA, 44855-7, HA1C, #### [facility] ([id number]) [address], [address] [place] [address] CO2 [Moles/Vol] 23 mmol/L Normal 22-32 [facility] Comment on above: Performed By: #### T HYR, CMP, 2132-03, 41730-1, CBCA, 45364-7, HA1C, #### [facility] ([id number]) [address], [address] [place] [address] Creatinine [Mass/Vol] 1.06 mg/dL Normal 0.60-1.30 [facility] Comment on above: Result Comment: METH OD TRACEABLE TO IDMS STANDARD Performed By: #### T CONNORR, CMP, 2132-03, 52302-8, CBCA, 14485-3, HA1C, #### [facility] ([id number]) [address] [place] [address] GFR/1.73 sq M.predicted among non-blacks MDRD (S/P/Bld) [Vol rate/Area] 90 mL/min/{1.73_m2} Normal >59 [facility] Comment on above: Result Comment: Reported eGFR is based on the CKD-EPI 2020 equation that does not use a race coefficient. Performed By: #### T OLYA, KENYA, 2132-03, 67068-9, CBCA, 15907-0, HA1C, #### [facility] ([id number]) [address] [address] [place] [address] Glucose [Mass/Vol] 241 mg/dL High 65-99 [facility] Comment on above: Performed By: #### T OLYA, KENYA, 2132-03, 30622-4, CBCA, 48541-2, HA1C, #### [facility] ([id number]) [address] [place] [address] Potassium [Moles/Vol] 4.2 mmol/L Normal 3.5-5.0 [facility] Comment on above: Performed By: #### T HYR, CMP, 2132-03, 62392-0, CBCA, 37386-4, HA1C, #### [facility] ([id number]) [address], [address] [place] [address] Protein [Mass/Vol] 8.5 g/dL High 6.0-8.0 [facility] Comment on above: Performed By: #### T HYR, CMP, 2132-03, 69145-3, CBCA, 28846-0, HA1C, #### [facility] ([id number]) [address], [address] [place] [address] Sodium [Moles/Vol] 137 mmol/L Normal 134-146 [facility] Comment on above: Performed By: #### T HYR, CMP, 2132-03, 08846-5, CBCA, 80025-3, HA1C, 46107-2 #### [facility] ([id number]) [address], [address] [place] [address] Urea nitrogen [Mass/Vol] 14 mg/dL Normal 5-23 [facility] Comment on above: Performed By: #### T HYR, CMP, 2132-03, 11208-8, CBCA, 07363-0, HA1C, #### [facility] ([id number]) [address], [address] [place] [address] HGB A1C (GLYCO-HGB)on 2024 Glucose [Mass/Vol] 183 mg/dL Normal [facility] Comment on above: Performed By: #### T HYR, CMP, 2132-03, 16709-1, CBCA, 20472-6, HA1C, #### [facility] ([id number]) [address], [address] [place] [address] HbA1c (Bld) [Mass fraction] 8.0 % High 4.4-5.6 [facility] Comment on above: Result Comment: NOTE ADA Guidelines Result HgbA1c Normal : less than 5.7 % Prediabetes : 5.7 % to 6.4 % Diabetes : > 6.4 % Use with caution in patients with abnormal hemoglobin variants as the half-life of red blood cells and in vivo glycation rates are affected. Performed By: #### T HYR, CMP, 2131-9, 61339-2, CBCA, 17005-5, HA1C, #### [facility] ([id number]) [address], [address] [place] [address] Lipid 1996 panelon 5 Cholesterol [Mass/Vol] 202 mg/dL High 150-200 [facility] Comment on above: Performed By: #### T HYR, CMP, 2131-9, 14698-7, CBCA, 06797-0, HA1C, #### [facility] ([id number]) Count includes the [facility] [facility], [address] [place] [address] Cholesterol in HDL [Mass/Vol] 39 mg/dL Low >39 [facility] Comment on above: Result Comment: HDL <40 mg/dL - High Risk HDL > or = 40mg/dL- Desirable HDL >60 mg/dL - Negative Risk Performed By: #### T HYR, CMP, 9, 41856-2, CBCA, 26845-9, HA1C, #### [facility] ([id number]) [address], [address] [place] [address] Cholesterol in LDL [Mass/Vol] 120 mg/dL Normal <130 [facility] Comment on above: Result Comment: LDL <100 mg/dL - Desirable LDL >160 mg/dL - High Risk Performed By: #### T HYR, CMP, 2131-9, 59742-4, CBCA, 83870-4, HA1C, #### [facility] ([id number]) [address] [place] [address] Cholesterol in VLDL [Mass/Vol] 43 mg/dL High 0-30 [facility] Comment on above: Performed By: #### T HYR, CMP, 2132-03, 94429-7, CBCA, 06200-4, HA1C, #### [facility] ([id number]) [address], [address] [place] [address] CHOLESTEROL:HDL 5.2 High 1.0-5.0 [facility] Comment on above: Performed By: #### T HYR, CMP, 2132-03, 87358-0, CBCA, 51285-4, HA1C, #### [facility] ([id number]) [address], [address] [place] [address] Triglyceride [Mass/Vol] 214 mg/dL High 27-150 [facility] Comment on above: Performed By: #### T HYR, CMP, 2132-03, 70277-6, CBCA, 05415-5, HA1C, #### [facility] ([id number]) [address], [address] [place] [address] MAGNESIUMon 09-25-2024 Magnesium [Mass/Vol] 2.3 mg/dL Normal 1.8-2.6 [facility] Comment on above: Performed By: #### T HYR, CMP, 2132-03, 75969-2, CBCA, 90426-1, HA1C, #### [facility] ([id number]) [address], [address] [place] [address] THYROID PROFILEon 09-25-2024 Free T4 [Mass/Vol] 0.82 ng/dL Normal 0.61-1.60 [facility] Comment on above: Performed By: #### T HYR, CMP, 2132-03, 40609-8, CBCA, 75600-3, HA1C, #### [facility] ([id number]) [address] [facility] [place] [address] TSH 1.41 uIU/mL Normal 0.49-4.67 [facility] Comment on above: Performed By: #### T HYR, CMP, 2132-03, 75620-6, CBCA, 44252-6, HA1C, #### [facility] ([id number]) [address] [facility] [place] [address] VITAMIN B12on 09-25-2024 Cobalamin (Vitamin B12) [Mass/Vol] 232 pg/mL Normal 180-914 [facility] Comment on above: Performed By: #### T HYR, CMP, 2132-03, , CBCA, 71486-2, HA1C, #### [facility] ([id number]) Count includes the [facility], [address] [place] [address] Vitamin D+Metabolites [Mass/ Vol]on 09-25-2024 VITAMIN D 25 HYD TOT 11.6 ng/mL Low 30-100 [facility] Comment on above: Result Comment: Vitamin D status 25 [place] Vitamin D Deficiency <20 ng/mL Insufficiency 20-29 ng/mL Sufficiency 30-100 ng/mL Toxicity >100 ng/mL NOTE: A pediatric reference range has not been established by the coat repair inspector of this kit. The [place] [employer] recommends a Vitamin D level of = or >20ng/mL in infants and children. Performed By: #### T HYR, CMP, 2132-03, 12639-8, CBCA, 55836-7, HA1C, #### [facility] ([id number]) [address] [facility] [place] [address] ED Clinical Summaryon 2023 ED Clinical Summary ED Clinical Summary [address] [address] ED Clinical Summary Person Information [facility]: [facility] 43 Years : 1980 Sex: Male Language: Haitian PCP: SALBADOR BOOKER CNP Marital Status: Single Phone: [phone] Visit Id: Visit Reason: Foot pain-swelling; LT [...] 02/14/2024 17:04:58 02/14/2024 17:04:58 02/14/2024 17:04:58 ADDRESS: [address] [place] [phone] PHYS DOC NOTES: MEDICAL INFORMATION: Prescriptions Given: Medications to Continue with No Changes Other Medications glyBURIDE (GlyBURIDE (Eqv-Micronase) 5 mg oral tablet) 1 Tablets By Mouth 2 times a day. tamsulosin (tamsulosin 0.4 mg Cap) 1 Capsules By Mouth every day. Refills: 0. PATIENT EDUCATION INFORMATION: Instructions: How to Use a Cast Shoe; Foot Sprain Follow up: With: Address: When: SALBADOR BOOKER [address] [place] [phone] [facility] (1) In 3 days 02/17/2024 Comments: Return to the emergency room if your pain gets worse or any new symptoms. DIAGNOSIS: 1:Sprain of left foot Normal [facility] ED Note-Physicianon 02-14-20 ED Note-Physician ED [...] and Complexity of Problems Differential Diagnosis: [] [facility] Data External documents reviewed: [] My [...] BOOKER In 3 days 02/17/2024 EDT [address] [place] [address] [employer] (1) Additional Instructions: Return to the emergency [...] not included)... Normal [facility] Comment on above: Result Comment: Elec tronically Signed By: Reddy Thao M.D.\.br\Date and Time Signed: 02/14/24 16:56 EDT ED Patient Summaryon 024 ED Patient Summary ED Patient Summary [address] [address] Patient Discharge Instructions Person Information Name: BRIAN TSE Age: 43 Years Arrival Date: 02/14/2024 15:56:45 Discharge Diagnosis: 1:Sprain of left foot Primary Care Physician: SALBADOR BOOKER CNP Provider Information Primary Provider: Reddy Thao M.D. Advanced [employer] Operator:None The exam and treatment you received in the Emergency Department were for an urgent problem and are not intended as complete care. It is important that you follow up with a doctor, nurse practitioner, or physician?s media center assistant for ongoing care. If your symptoms [...] Follow-up Instructions: With: Address: When: SALBADOR BOOKER [address] [place] [phone] [employer] (1) In 3 days 02/17/2024 Comments: Return [...] opioids can be used to help relieve mxnfyynx-jf-lwwbrz pain and are often prescribed following a [...] not included)... Normal [facility] XR Foot 3+ Views Lefton 01-23 [...] = . Normal [facility] Glucose Poct Glucometerson 0 11-30-2022 Glucose [Mass/Vol] 155 mg/dL Normal [facility] Comment on above: Result Comment: [place] Glucose Reference Range is dependent on time and content of last meal. Glucose of more than 200 mg/dL in a nonstressed, ambulatory subject supports the diagnosis of Diabetes Mellitus. PERFORMED BY: [facility] TRACY RAMIREZ [id number] PATHOLOGIST FINAL RAIL CUTTER IGLESIA SANCHEZ M.D. Performed By: #### G STIVEN #### Point of Care testing , Roland 11-30-2022 L --- Specimen: [id number] Received: 11/30/22 Status: JAGDISH Shinmariam Num: [id number] Spec Type: Surgical Subm Dr: Edvin Colunga MD Tissues: A Colon Biopsy (ASCENDING POLYP) Procedures: Jami NICHOLAS/Jakob Merino Age/ Patient Sex Location Account Attending Physician Brian Tse/M [id number] Edvin Colunga MD SPEC NUM: [id number] RECD: 11/30/22 STATUS: JAGDISH GARRISON NUM: [id number] REINA: 11/30/22- DR: Edvin Colunga MD ENTERED: 11/30/[address] [facility] [address]: SPEC TYPE: Surgical DEPT: S ORDERED: [...] support the above pathologic diagnosis. CPT Codes 38548 Specimen: [id number] Received: 11/30/22 Status: JAGDISH Garrison Num: [id number] Spec Type: Surgical Subm Dr: Edvin Colunga MD Tissues: A Colon Biopsy (ASCENDING POLYP) Procedures: HE/2, Gross/Micro L4 Patient: Brian Tse [id number] (Continued) Signed (signature on file) Daily Quarles MD 12/01/22 1158 [facility] CBC AUTO DIFFon 10-28-2022 BASO # 0.1 103/ul Normal 0.0-0.1 [facility] Comment on above: Performed By: #### C BC #### [facility] [address] [place] [address] Dr. Yash Mckeon Basophils/100 WBC (Bld) 0.8 % Normal 0.2-2.0 [facility] Comment on above: Performed By: #### C BC #### [facility] [address] [place] [address] Dr. Yash Mckeon EO # 0.4 103/ul Normal 0.0-0.7 [facility] Comment on above: Performed By: #### C BC #### [facility] [address] [address] [address] Yash Mckeon Eosinophils/100 WBC (Bld) 3.3 % Normal 0.9-7.0 [facility] Comment on above: Performed By: #### C BC #### [facility] [address] [place] [address] Dr. Yash Mckeon Erythrocyte distribution width (RBC) [Ratio] 14.0 % Normal 11.0-15.0 [facility] Comment on above: Performed By: #### C BC #### [facility] [address] [address] [address] Yash Mckeon Hematocrit (Bld) [Volume fraction] 45.4 % Normal 42.0-54.0 [facility] Comment on above: Performed By: #### C BC #### [facility] [address] [address] [address] Yash Mckeon Hemoglobin (Bld) [Mass/Vol] 14.8 g/dL Normal 14.0-18.0 [facility] Comment on above: Performed By: #### C BC #### [facility] [address] [address] [address] Yash Mckeon IG # 0.04 10e3/ul Critically high 0.00-0.03 [facility] Comment on above: Performed By: #### C BC #### [facility] [address] [place] [address] Dr. Yash Mckeon IG % 0.4 % Normal 0.0-0.5 [facility] Comment on above: Performed By: #### C BC #### [facility] [address] [place] [address] Dr. Yash Mckeon LYMPH # 2.8 103/ul Normal 1.2-3.8 [facility] Comment on above: Performed By: #### C BC #### [facility] [address] [place] [address] Dr. Yash Mckeon Lymphocytes/100 WBC (Bld) 25.3 % Normal 20.5-60.0 [facility] Comment on above: Performed By: #### C BC #### [facility] [address] [place] [address] Dr. Yash Mckeon MANUAL DIFF REQ NO Normal [facility] Comment on above: Performed By: #### C BC #### [facility] [address] [place] [address] Dr. Yash Mckeon MCH (RBC) [Entitic mass] 28.6 pg Normal 25.9-34.0 [facility] Comment on above: Performed By: #### C BC #### [facility] [address] [address] [address] Yash Mckeon MCHC (RBC) [Mass/Vol] 32.6 g/dL Normal 29.9-35.2 [facility] Comment on above: Performed By: #### C BC #### [facility] [address] [address] [address] Yash Mckeon MCV (RBC) [Entitic vol] 87.8 fL Normal 80.0-94.0 [facility] Comment on above: Performed By: #### C BC #### [facility] [address] [address] [address] Yash Mckeon MONO # 1.0 103/ul Critically high 0.3-0.8 [facility] Comment on above: Performed By: #### C BC #### [facility] [address] [place] [address] Dr. Yash Mckeon Monocytes/100 WBC (Bld) 8.6 % Normal 1.7-12.0 [facility] Comment on above: Performed By: #### C BC #### [facility] [address] [place] [address] Dr. Yash Mckeon NEUT # 6.9 103/ul Critically high 1.4-6.5 [facility] Comment on above: Performed By: #### C BC #### [facility] [address] [place] [address] Dr. Yash Mckeon Neutrophils/100 WBC (Bld) 61.6 % Normal 43.0-75.0 [facility] Comment on above: Performed By: #### C BC #### [facility] [address] [place] [address] Dr. Yash Mckeon Platelet mean volume (Bld) [Entitic vol] 10.0 fL Normal 9.5-13.5 [facility] Comment on above: Performed By: #### C BC #### [facility] [address] [address] [address] Yash Mckeon PLT 250 103/ul Normal 150-450 [facility] Comment on above: Performed By: #### C BC #### [facility] [address] [address] [address] Yash Mckeon RBC 5.17 106/ul Normal 4.70-6.10 [facility] Comment on above: Performed By: #### C BC #### [facility] [address] [place] [address] Dr. Yash Mckeon WBC 11.2 103/ul Critically high 4.0-11.0 [facility] Comment on above: Performed By: #### C BC #### [facility] [address] [place] [address] Dr. Yash Mckeon POINT OF CARE GLUCOSEon Glucose [Mass/Vol] 219 mg/dL Critically high 74-106 [facility] Comment on above: Performed By: #### P OCGLUC #### [facility] [address] [place] [address] Dr. Yash Mckeon PROF CHEM 8 (BAS METB)on Anion gap [Moles/Vol] 11.8 mmol/L Normal [facility] Comment on above: Performed By: #### B MP #### [facility] [address] [place] [address] Dr. Yash Mckeon Calcium [Mass/Vol] 8.6 mg/dL Normal 8.5-10.1 [facility] Comment on above: Performed By: #### B MP #### [facility] [address] [place] [address] Dr. Yash Mckeon Chloride [Moles/Vol] 101 mmol/L Normal 98-107 [facility] Comment on above: Performed By: #### B MP #### [facility] [address] [place] [address] Dr. Yash Mckeon CO2 [Moles/Vol] 28.0 mmol/L Normal 21.0-32.0 [facility] Comment on above: Performed By: #### B MP #### [facility] [address] [place] [address] Dr. Yash Mckeon Creatinine [Mass/Vol] 1.13 mg/dL Normal 0.70-1.30 [facility] Comment on above: Performed By: #### B MP #### [facility] [address] [address] [address] Ysah Mckeon EGFR-AF EMIRATI >60 Normal >=60 [facility] Comment on above: Performed By: #### B MP #### [facility] [address] [address] [address] Yash Mckeon EGFR-NON AF EMIRATI >60 Normal >=60 [facility] Comment on above: Performed By: #### B MP #### [facility] [address] [address] [address] Yash Mckeon Glucose [Mass/Vol] 196 mg/dL Critically high 74-106 T [facility] Comment on above: Performed By: #### B MP #### [facility] [address] [place] [address] Dr. Yash Mckeon Potassium [Moles/Vol] 3.8 mmol/L Normal 3.5-5.1 [facility] Comment on above: Performed By: #### B MP #### [facility] [address] [place] [address] Dr. Yash Mckeon Sodium [Moles/Vol] 137 mmol/L Normal 136-145 [facility] Comment on above: Performed By: #### B MP #### [facility] [address] [place] [address] Dr. Yash Mckeon Urea nitrogen [Mass/Vol] 14.0 mg/dL Normal 7.0-18.0 [facility] Comment on above: Performed By: #### B MP #### [facility] [address] [place] [address] Dr. Yash Mckeon Urea nitrogen/Creatinine [Mass ratio] 12.4 mg/mg Normal [facility] Comment on above: Performed By: #### B MP #### [facility] [address] [address] [address] Yash Mckeon PROTIMEon 10-28-2022 INR Coag (PPP) [Relative time] {INR} Normal [facility] Comment on above: Performed By: #### P OCGLUC #### [facility] [address] [place] [address] Dr. Yash Mckeon INR GUIDELINES SEE BELOW Normal [facility] Comment on above: Result Comment: ZAN RED INR: 2.0 - 3.0 CONDITIONS NOT LISTED BELOW 2.5 - 3.5 FOR PROSTHETIC HEART VALVE REPLACEMENT 2.5 - 3.5 RECURRENT THROMBOSIS Performed By: #### P OCGLUC #### [facility] [address] [address] [address] Yash Mckeon PT Coag (PPP) [Time] 9.8 s Normal 9.0-11.6 [facility] Comment on above: Performed By: #### P OCGLUC #### [facility] [address] [address] [address] Yash Mckeon PTTon 10-28-2022 aPTT Coag (Bld) [Time] 30.5 s Normal 22.3-36.2 [facility] Comment on above: Performed By: #### P OCGLUC #### [facility] [address] [place] [address] Dr. Yash Mckeon XR KUB 1 VIEWon [...] by: SABI FREEMAN Date: 2022-10-28 08:00 Normal [facility] XR KUB 1 VIEWon 10-25-2022 XR [...] by: JUANITA DYKES Date: 2022-10-25 06:41 Normal [facility] XR ribs RT min 3V w CXR1V*on 10-21-2022 XR ribs RT min 3V w CXR1V* [facility] [place] [address] [place] [address] XRay Report Signed Patient: Brian Tse MR#: [id number] : 1980 Acct:[id number] Age/Sex: 41 / M ADM Date: 10/21/22 Loc: XDUCLY Room: [facility] Attending Dr: Domonique Myers APRN Copies [...] Linda Sierra M.D.10/21/2022 2:10 PM Dictation Location: [place] [address] Transcribed By: [facility] 10/21/22 1410 Dictated By: Linda Sierra MD 10/21/22 1406 Signed By: 10/21/22 1410 Normal [facility] CHEMISTRYOrdered By: Lab ROP User on 05-20-2022 Glucose [Mass/Vol] 173 mg/dL High 55 - 99 mg/dL [facility] Subsection Comment on above: Result Comment: Dayanara alcantar RN/ POC Device SN [id number] Invalid Interpretation Code [facility] Subsection POC User ID [id number] Invalid Interpretation Code [facility] Subsection POC Username CHINEDU POSADAS Invalid Interpretation Code [facility] [place] Subsection CHEMISTRYOrdered By: SYSTEM SYSTEM on 05-13-2022 Anion gap [Moles/Vol] 15 mmol/L Normal 6 - 16 mEq/L [facility] Chloride [Moles/Vol] 102 mmol/L Normal 101 - 1 11 mmol/L [facility] CO2 [Moles/Vol] 22 mmol/L Normal 21 - 31 mmol/L [facility] Creatinine [Mass/Vol] 1.1 mg/dL Normal 0.5 - 1.3 mg/dL [facility] GFR/1.73 sq M.predicted among blacks MDRD (S/P/Bld) [Vol rate/Area] mL/min/1.73 m2 Normal >=59mL/min/1 .73 m2 [facility] [place] S GFR/1.73 sq M.predicted among non-blacks MDRD (S/P/Bld) [Vol rate/Area] mL/min/1.73 m2 Normal >=59mL/min/1 .73 m2 [facility] [place] S Glucose [Mass/Vol] 171 mg/dL Normal 55 - 199 mg/dL [facility] Potassium [Moles/Vol] 3.7 mmol/L Normal 3.5 - 5.3 mmol/L [facility] Sodium [Moles/Vol] 135 mmol/L Normal 135 - 145 mmol/L [facility] Urea nitrogen [Mass/Vol] 10 mg/dL Normal 5 - 21 mg/dL [facility] [place] HEMATOLOGYOrdered By: Scarlett Nicholson on 05-13-2022 Erythrocyte distribution width (RBC) [Ratio] 13.9 % Normal 10.9 - 14.2 % [facility] [place] [facility] Hematocrit (Bld) [Volume fraction] 47.7 % Normal 37.7 - 49.0 % [facility] [place] [facility] Hemoglobin (Bld) [Mass/Vol] 16.5 g/dL Normal [...] 8.5 fL Normal 6.4 - 10.8 fL [facility] [place] [facility] Platelets (Bld) [#/Vol] 210.0 E9/L Normal 150.0 - 500.0 E9/L [facility] [place] [facility] RBC (Bld) [#/Vol] 5.6 E12/L Normal 4.3 - 5.9 E12/L [facility] [place] [facility] WBC corrected for nucl RBC Auto (Bld) [#/Vol] 9.1 E9/L Normal 4.0 - 11.0 E9/L [facility] [place] [facility] CALCULI, URINARYon 2 2,8 Dihydroxyadenine Normal [facility] Comment on above: Performed By: #### P OCGLUC #### [facility] [address] [place] [address] Dr. Yash Mckeon Ammonium Acid Urate Normal [facility] Comment on above: Performed By: #### P OCGLUC #### [facility] [address] [place] [address] Dr. Yash Mckeon Bilirubin Ql (U) Normal [facility] Comment on above: Performed By: #### P OCGLUC #### [facility] [address] [address] [address] Yash Mckeon Ca Oxalate Dihydrate Normal [facility] Comment on above: Performed By: #### P OCGLUC #### [facility] [address] [address] [address] Yash Mckeon CaHPO4 (Brushite) Normal [facility] Comment on above: Performed By: #### P OCGLUC #### [facility] [address] [address] [address] Yash Mckeon Calcium Bilirubinate Normal [facility] Comment on above: Performed By: #### P OCGLUC #### [facility] [address] [address] [address] Yash Mckeon Calcium Carbonate Normal [facility] Comment on above: Performed By: #### P OCGLUC #### [facility] [address] [place] [address] Dr. Yash Mckeon Calcium Oxalate Monohydrate Normal [facility] Comment on above: Performed By: #### P OCGLUC #### [facility] [address] [address] [address] Yash Mckeon Calcium Palmitate Normal [facility] Comment on above: Performed By: #### P OCGLUC #### [facility] [address] [address] [address] Yash Mckeon Calcium Phosphate Normal [facility] Comment on above: Performed By: #### P OCGLUC #### [facility] [address] [address] [address] Yash Mckeon Calcium Stearate Normal [facility] Comment on above: Performed By: #### P OCGLUC #### [facility] [address] [address] [address] Yash Mckeon Carbonate Apatite Normal [facility] Comment on above: Performed By: #### P OCGLUC #### [facility] [address] [place] [address] Dr. Yash Mckeon Cellular Material Normal [facility] Comment on above: Performed By: #### P OCGLUC #### [facility] [address] [address] [address] Yash Mcekon Cholesterol [facility] Comment on above: Performed By: #### P OCGLUC #### [facility] [address] [address] [address] Yash Mckeon Color (U) Phipps Normal [facility] Comment on above: Performed By: #### P OCGLUC #### [facility] [address] [address] [address] Yash Mckeon Comment Comment Normal [facility] Comment on above: Result Comment: Lolly talline substances normally associated with human calculi were not identified. Specimen is consistent with organic material. Insufficient sample to perform additional, confirmatory, or reference testing. Performed By: #### P OCGLUC #### [facility] [address] [address] [address] Yash Mckeon Comment [facility] Comment on above: Performed By: #### P OCGLUC #### [facility] [address] [address] [address] Yash Mckeon Comment: Comment Normal [facility] Comment on above: Result Comment: Diego gage questions regarding Calculi Analysis contact [facility] at: [phone]. Performed By: #### P OCGLUC #### [facility] [address] [address] [address] Yash Mckeon Composition Comment Normal [facility] Comment on above: Result Comment: Plea se see comment Performed By: #### P OCGLUC #### [facility] [address] [address] [address] Yash Mckeon Cystine Normal [facility] Comment on above: Performed By: #### P OCGLUC #### [facility] [address] [address] [address] Yash Mckeon Disclaimer: Comment Normal [facility] Comment on above: Result Comment: This test was developed and its performance characteristics determined by [facility]. It has not been cleared or approved by the Food and Drug Administration. Performed By: #### P OCGLUC #### [facility] [address] [address] [address] Yash Mckeon Dried Blood Normal [facility] Comment on above: Performed By: #### P OCGLUC #### [facility] [address] [address] [address] Yash Mckeon Drug or Metabolite Normal [facility] Comment on above: Performed By: #### P OCGLUC #### [facility] [address] [address] [address] Yash Mckeon Hydroxyapatite Normal [facility] Comment on above: Performed By: #### P OCGLUC #### [facility] [address] [address] [address] Yash Mckeon Mg NH4 PO4 (Struvite) [facility] Comment on above: Performed By: #### P OCGLUC #### [facility] [address] [address] [address] Yash Mckeon MgHPO4 (Newberyite) Normal [facility] Comment on above: Performed By: #### P OCGLUC #### [facility] [address] [address] [address] Yash Mckeon Other component(s) Normal [facility] Comment on above: Performed By: #### P OCGLUC #### [facility] [address] [address] [address] Yash Mckeon PDF . Normal [facility] Comment on above: Performed By: #### P OCGLUC #### [facility] [address] [address] [address] Yash Mckeon Photo TNP Normal [facility] Comment on above: Result Comment: Test not performed No photo available Performed By: #### P OCGLUC #### [facility] [address] [address] [address] Yash Mckeon Please note: Comment [facility] Comment on above: Result Comment: Calc terry report will follow via computer, mail or incoming inspector delivery. Performed By: #### P OCGLUC #### [facility] [address] [address] [address] Yash Mckeon Size <1 [facility] Comment on above: Result Comment: Too small to measure. Performed By: #### P OCGLUC #### [facility] [address] [address] [address] Yash Mckeon Sodium Acid Urate Normal [facility] Comment on above: Performed By: #### P OCGLUC #### [facility] [address] [address] [address] Yash Mckeon Source Comment [facility] Comment on above: Result Comment: Not provided Performed By: #### P OCGLUC #### [facility] [address] [address] [address] Yash Mckeon Triamterene [facility] Comment on above: Performed By: #### P OCGLUC #### [facility] [address] [address] [address] Yash Mckeon Uric Acid [facility] Comment on above: Performed By: #### P OCGLUC #### [facility] [address] [address] [address] Yash Mckeon Uric Acid Dihydrate Normal [facility] Comment on above: Performed By: #### P OCGLUC #### [facility] [address] [place] [address] Dr. Yash Mckeon Weight <1 Normal [facility] Comment on above: Result Comment: Too small to weigh Performed By: #### P OCGLUC #### [facility] [address] [place] [address] Dr. Yash Mckeon Xanthine Normal [facility] Comment on above: Performed By: #### P OCGLUC #### [facility] [address] [place] [address] Dr. Yash Mckeon CBC AUTO DIFFon 04-04-2022 BASO # 0.1 103/ul Normal 0.0-0.1 [facility] Comment on above: Performed By: #### C BC #### [facility] [address] [place] [address] Dr. Yash Mckeon Basophils/100 WBC (Bld) 0.9 % Normal 0.2-2.0 [facility] Comment on above: Performed By: #### C BC #### [facility] [address] [place] [address] Dr. Yash Mckeon EO # 0.4 103/ul Normal 0.0-0.7 [facility] Comment on above: Performed By: #### C BC #### [facility] [address] [place] [address] Dr. Yash Mckeon Eosinophils/100 WBC (Bld) 3.3 % Normal 0.9-7.0 [facility] Comment on above: Performed By: #### C BC #### [facility] [address] [place] [address] Dr. Yash Mckeon Erythrocyte distribution width (RBC) [Ratio] 13.8 % Normal 11.0-15.0 [facility] Comment on above: Performed By: #### C BC #### [facility] [address] [place] [address] Dr. Yash Mckeon Hematocrit (Bld) [Volume fraction] 48.7 % Normal 42.0-54.0 [facility] Comment on above: Performed By: #### C BC #### [facility] [address] [place] [address] Dr. Yash Mckeon Hemoglobin (Bld) [Mass/Vol] 16.1 g/dL Normal 14.0-18.0 [facility] Comment on above: Performed By: #### C BC #### [facility] [address] [place] [address] Dr. Yash Mckeon IG # 0.06 10e3/ul Critically high 0.00-0.03 [facility] Comment on above: Performed By: #### C BC #### [facility] [address] [place] [address] Dr. Yash Mckeon IG % 0.5 % Normal 0.0-0.5 [facility] Comment on above: Performed By: #### C BC #### [facility] [address] [place] [address] Dr. Yash Mckeon LYMPH # 4.1 103/ul Critically high 1.2-3.8 [facility] Comment on above: Performed By: #### C BC #### [facility] [address] [place] [address] Dr. Yash Mckeon Lymphocytes/100 WBC (Bld) 33.3 % Normal 20.5-60.0 [facility] Comment on above: Performed By: #### C BC #### [facility] [address] [place] [address] Dr. Yash Mckeon MANUAL DIFF REQ NO Normal [facility] Comment on above: Performed By: #### C BC #### [facility] [address] [place] [address] Dr. Yash Mckeon MCH (RBC) [Entitic mass] 29.0 pg Normal 25.9-34.0 [facility] Comment on above: Performed By: #### C BC #### [facility] [address] [place] [address] Dr. Yash Mckeon MCHC (RBC) [Mass/Vol] 33.1 g/dL Normal 29.9-35.2 [facility] Comment on above: Performed By: #### C BC #### [facility] [address] [place] [address] Dr. Yash Mckeon MCV (RBC) [Entitic vol] 87.6 fL Normal 80.0-94.0 [facility] Comment on above: Performed By: #### C BC #### [facility] [address] [place] [address] Dr. Yash Mckeon MONO # 1.0 103/ul Critically high 0.3-0.8 [facility] Comment on above: Performed By: #### C BC #### [facility] [address] [place] [address] Dr. Yash Mckeon Monocytes/100 WBC (Bld) 8.2 % Normal 1.7-12.0 [facility] Comment on above: Performed By: #### C BC #### [facility] [address] [place] [address] Dr. Yash Mckeon NEUT # 6.6 103/ul Critically high 1.4-6.5 [facility] Comment on above: Performed By: #### C BC #### [facility] [address] [place] [address] Dr. Yash Mckeon Neutrophils/100 WBC (Bld) 53.8 % Normal 43.0-75.0 [facility] Comment on above: Performed By: #### C BC #### [facility] [address] [place] [address] Dr. Yash Mckeon Platelet mean volume (Bld) [Entitic vol] 10.5 fL Normal 9.5-13.5 [facility] Comment on above: Performed By: #### C BC #### [facility] [address] [place] [address] Dr. Yash Mckeon PLT 260 103/ul Normal 150-450 [facility] Comment on above: Performed By: #### C BC #### [facility] [address] [place], [place] [id number] Dr. Yash Mckeon RBC 5.56 106/ul Normal 4.70-6.10 [facility] Comment on above: Performed By: #### C BC #### [facility] [address] [place] [address] Dr. Yash Mckeon WBC 12.2 103/ul Critically high 4.0-11.0 [facility] Comment on above: Performed By: #### C BC #### [facility] [address] [address] [address] ABD/PELVIS WO CONon [...] JUANITA DYKES Date: 2022-04-04 08:43 Normal [facility] CULTURE URINEon 04-04-2022 CULTURE URINE Culture Observations : LIGHT GROWTH OF MIXED SKIN BRIANNA. NO POTENTIAL PATHOGENS SEEN. Normal [facility] Comment on above: Performed By: #### P OCGLUC #### [facility] [address] [place] [address] Dr. Yash Mckeon ER URINE PROFILEon 2 Bilirubin Ql (U) Negative Normal NEGATIVE [facility] Comment on above: Performed By: #### SUNIL STEPHENSRO #### [facility] [address] [address] [address] Yash Mckeon Clarity (U) SL CLOUDY Abnormal CLEAR [facility] Comment on above: Performed By: #### SUNIL STEPHENSRO #### [facility] [address] [place] [address] Dr. Yash Mckeon Color (U) BROWN Abnormal YELLOW [facility] Comment on above: Performed By: #### SUNIL STEPHENSRO #### [facility] [address] [place] [address] Dr. Yash DUBOSE A micrscopic examination will be performed if indicated. Normal [facility] Comment on above: Performed By: #### SUNIL STEPHENSRO #### [facility] [address] [place] [address] Dr. Yash Mckeon Glucose Ql (U) 100 mg/dl Abnormal NEGATIVE [facility] Comment on above: Performed By: #### SUNIL STEPHENSRO #### [facility] [address] [place] [address] Dr. Yash Mckeon Hemoglobin Ql (U) LARGE Abnormal NEGATIVE [facility] Comment on above: Performed By: #### SUNIL STEPHENSRO #### [facility] [address] [address] [address] Yash Mckeon Ketones Ql (U) TRACE Abnormal NEGATIVE [facility] Comment on above: Performed By: #### SUNIL STEPHENSRO #### [facility] [address] [place] [address] Dr. Yash Mckeon LEUKOCYTES Negative Normal NEGATIVE [facility] Comment on above: Performed By: #### SUNIL STEPHENSRO #### [facility] [address] [place] [address] Dr. Yash Mckeon Nitrite Ql (U) Positive Abnormal NEGATIVE [facility] Comment on above: Performed By: #### LYN STEPHENSICRO #### [facility] [address] [place] [address] Dr. Yash Mckeon pH (U) 5.0 [pH] Normal 5-9 [facility] Comment on above: Performed By: #### SUNIL STEPHENSRO #### [facility] [address] [place] [address] Dr. Yash Mckeon Protein (U) [Mass/Vol] 100 mg/dL Abnormal NEGATIVE/ TRACE [facility] Comment on above: Performed By: #### SUNIL STEPHENSRO #### [facility] [address] [place] [address] Dr. Yash Mckeon SPEC GRAVITY >=1.030 Abnormal 1.005-<=1.02 5 [facility] Comment on above: Performed By: #### SUNIL STEPHENSRO #### [facility] [address] [place] [address] Dr. Yash Mckeon UR MICRO IND INDICATED Normal [facility] Comment on above: Performed By: #### SUNIL STEPHENSRO #### [facility] [address] [place] [address] Dr. Yash Mckeon Urobilinogen Qn (U) 1.0 {Nathaniel'U}/dL Normal 0.2 - 1. 0 [facility] Comment on above: Performed By: #### SUNIL STEPHENSRO #### [facility] [address] [place] [address] Dr. Yash Mckeon PROF CHEM 8 (BAS METB)on Anion gap [Moles/Vol] 16.0 mmol/L Normal [facility] Comment on above: Performed By: #### B MP #### [facility] [address] [place] [address] Dr. Yash Mckeon Calcium [Mass/Vol] 8.5 mg/dL Normal 8.5-10.1 [facility] Comment on above: Performed By: #### B MP #### [facility] [address] [place] [address] Dr. Yash Mckeon Chloride [Moles/Vol] 102 mmol/L Normal 98-107 [facility] Comment on above: Performed By: #### B MP #### [facility] [address] [address] [address] Yash Mckeon CO2 [Moles/Vol] 23.6 mmol/L Normal 21.0-32.0 [facility] Comment on above: Performed By: #### B MP #### [facility] [address] [address] [address] Yash Mckeon Creatinine [Mass/Vol] 1.17 mg/dL Normal 0.70-1.30 [facility] Comment on above: Performed By: #### B MP #### [facility] [address] [address] [address] Yash Mckeon EGFR-AF EMIRATI >60 Normal >=60 [facility] Comment on above: Performed By: #### B MP #### [facility] [address] [address] [address] Yash Mckeon EGFR-NON AF EMIRATI >60 Normal >=60 [facility] Comment on above: Performed By: #### B MP #### [facility] [address] [address] [address] Yash Mckeon Glucose [Mass/Vol] 234 mg/dL Critically high 74-106 [facility] Comment on above: Performed By: #### B MP #### [facility] [address] [address] [address] Yash Mckeon Potassium [Moles/Vol] 3.6 mmol/L Normal 3.5-5.1 [facility] Comment on above: Performed By: #### B MP #### [facility] [address] [address] [address] Yash Mckeon Sodium [Moles/Vol] 138 mmol/L Normal 136-145 [facility] Comment on above: Performed By: #### B MP #### [facility] [address] [address] [address] Yash Mckeon Urea nitrogen [Mass/Vol] 8.0 mg/dL Normal 7.0-18.0 [facility] Comment on above: Performed By: #### B MP #### [facility] [address] [place] [address] Dr. Yash Mckeon Urea nitrogen/Creatinine [Mass ratio] 6.8 mg/mg Normal [facility] Comment on above: Performed By: #### B MP #### [facility] [address] [place] [address] Dr. Yash cMkeon URINE MICROSCOPIC ONLYon BACTERIA TRACE Abnormal NONE SEEN [facility] Comment on above: Performed By: #### Vincenzo KELLEY, UMICRO #### [facility] [address] [place] [address] Dr. Yash Mckeon Bacteria identified Cx Nom (U) INDICATED Normal [facility] Comment on above: Performed By: #### Vincenzo KELLEY, UMICRO #### [facility] [address] [place] [address] Dr. Yash Mckeon CAST NONE SEEN Normal NONE SEEN [facility] Comment on above: Performed By: #### Vincenzo KELLEY, UMICRO #### [facility] [address] [place] [address] Dr. Yash Mckeon Crystals LM Nom (Urine sed) NONE SEEN Normal NONE SEEN [facility] Comment on above: Performed By: #### Vincenzo KELLEY, UMICRO #### [facility] [address] [place] [address] Dr. Yash Mckeon Epithelial cells LM Ql (Urine sed) RARE Normal NONE SEEN /RARE [facility] Comment on above: Performed By: #### Vincenzo KELLEY, UMICRO #### [facility] [address] [place] [address] Dr. Yash Mckeon MUCOUS NONE SEEN Normal NONE SEEN [facility] Comment on above: Performed By: #### Vincenzo KELLEY, UMICRO #### [facility] [address] [place] [address] Dr. Yash Mckeon RBC 20-50 Abnormal 0-2 [facility] Comment on above: Performed By: #### Vincenzo KELLEY UMICRO #### [facility] [address] [place] [address] Dr. Yash Mckeon WBC 0-2 Abnormal NONE SEEN [facility] Comment on above: Performed By: #### E KALEIGH KELLEY #### [facility] [address] [place] [address] Dr. Yash Mckeon CBC AUTO DIFFon 02-17-2022 BASO # 0.1 103/ul Normal 0.0-0.1 [facility] Comment on above: Performed By: #### C BC #### [facility] [address] [place] [address] Dr. Yash Mckeon Basophils/100 WBC (Bld) 0.7 % Normal 0.2-2.0 [facility] Comment on above: Performed By: #### C BC #### [facility] [address] [place] [address] Dr. Yash Mckeon EO # 0.2 103/ul Normal 0.0-0.7 [facility] Comment on above: Performed By: #### C BC #### [facility] [address] [place] [address] Dr. Yash Mckeon Eosinophils/100 WBC (Bld) 1.6 % Normal 0.9-7.0 [facility] Comment on above: Performed By: #### C BC #### [facility] [address] [place] [address] Dr. Yash Mckeon Erythrocyte distribution width (RBC) [Ratio] 14.3 % Normal 11.0-15.0 [facility] Comment on above: Performed By: #### C BC #### [facility] [address] [place] [address] Dr. Yash Mckeon Hematocrit (Bld) [Volume fraction] 47.1 % Normal 42.0-54.0 [facility] Comment on above: Performed By: #### C BC #### [facility] [address] [place] [address] Dr. Yash Mckeon Hemoglobin (Bld) [Mass/Vol] 15.7 g/dL Normal 14.0-18.0 [facility] Comment on above: Performed By: #### C BC #### [facility] [address] [place] [address] Dr. Yash Mckeon IG # 0.05 10e3/ul Critically high 0.00-0.03 [facility] [facility] Comment on above: Performed By: #### C BC #### [facility] [address] [place] [address] Dr. Yash Mckeon IG % 0.5 % Normal 0.0-0.5 [facility] Comment on above: Performed By: #### C BC #### [facility] [address] [place] [address] Dr. Yash Mckeon LYMPH # 2.9 103/ul Normal 1.2-3.8 [facility] Comment on above: Performed By: #### C BC #### [facility] [address] [place] [address] Dr. Yash Mckeon Lymphocytes/100 WBC (Bld) 29.8 % Normal 20.5-60.0 [facility] Comment on above: Performed By: #### C BC #### [facility] [address] [place] [address] Dr. Yash Mckeon MANUAL DIFF REQ NO Normal [facility] Comment on above: Performed By: #### C BC #### [facility] [address] [place] [address] Dr. Yash Mckeon MCH (RBC) [Entitic mass] 29.2 pg Normal 25.9-34.0 [facility] Comment on above: Performed By: #### C BC #### [facility] [address] [place] [address] Dr. Yash Mckeon MCHC (RBC) [Mass/Vol] 33.3 g/dL Normal 29.9-35.2 [facility] Comment on above: Performed By: #### C BC #### [facility] [address] [place] [address] Dr. Yash Mckeon MCV (RBC) [Entitic vol] 87.7 fL Normal 80.0-94.0 [facility] Comment on above: Performed By: #### C BC #### [facility] [address] [place] [address] Dr. Yash Mckeon MONO # 0.7 103/ul Normal 0.3-0.8 [facility] Comment on above: Performed By: #### C BC #### [facility] [address] [place] [address] Dr. Yash Mckeon Monocytes/100 WBC (Bld) 6.8 % Normal 1.7-12.0 [facility] Comment on above: Performed By: #### C BC #### [facility] [address] [place] [address] Dr. Yash Mckeon NEUT # 5.9 103/ul Normal 1.4-6.5 [facility] Comment on above: Performed By: #### C BC #### [facility] [address] [place] [address] Dr. Yash Mckeon Neutrophils/100 WBC (Bld) 60.6 % Normal 43.0-75.0 [facility] Comment on above: Performed By: #### C BC #### [facility] [address] [place] [address] Dr. Yash Mckeon Platelet mean volume (Bld) [Entitic vol] 10.3 fL Normal 9.5-13.5 [facility] Comment on above: Performed By: #### C BC #### [facility] [address] [place] [address] Dr. Yash Mckeon PLT 240 103/ul Normal 150-450 [facility] Comment on above: Performed By: #### C BC #### [facility] [address] [place] [address] Dr. Yash Mckeon RBC 5.37 106/ul Normal 4.70-6.10 [facility] Comment on above: Performed By: #### C BC #### [facility] [address] [place] [address] Dr. Yash Mckeon WBC 9.8 103/ul Normal 4.0-11.0 [facility] Comment on above: Performed By: #### C BC #### [facility] [address] [place] [address] Dr. Yash Mckeon [facility] SARS-CoV-2 (COVID-19) RNA TALIB+probe Ql (Unsp spec) Not detected Normal NOT DETECTED [facility] Comment on above: Result Comment: [...] for this test is supported by the [place] Sprayer of Health and Human Service's declaration that [...] used). Performed By: #### C VDTBH #### [facility] [address] [place] [address] Dr. Yash Mckeon D-DIMERon 02-17-2022 D-DIMER <0.19 Normal <=0.59 [facility] Comment on above: Performed By: #### D DIM #### [facility] [address] [place] [address] Dr. Yash Mckeon D-DIMER COMMENTS SEE BELOW Normal [facility] Comment on above: Result Comment: Incr [...] hospitalization. Performed By: #### D DIM #### [facility] [address] [place] [address] Dr. Yash Mckeon PROF CHEM 8 (BAS METB)on Anion gap [Moles/Vol] 13.0 mmol/L Normal [facility] Comment on above: Performed By: #### P OCGLUC #### [facility] [address] [address] [address] Yash Mckeon Calcium [Mass/Vol] 9.2 mg/dL Normal 8.5-10.1 [facility] Comment on above: Performed By: #### P OCGLUC #### [facility] [address] [address] [address] Yash Mckeon Chloride [Moles/Vol] 102 mmol/L Normal 98-107 [facility] Comment on above: Performed By: #### P OCGLUC #### [facility] [address] [address] [address] Yash Mckeon CO2 [Moles/Vol] 28.2 mmol/L Normal 21.0-32.0 [facility] Comment on above: Performed By: #### P OCGLUC #### [facility] [address] [address] [address] Yash Mckeon Creatinine [Mass/Vol] 1.10 mg/dL Normal 0.70-1.30 [facility] Comment on above: Performed By: #### P OCGLUC #### [facility] [address] [place] [address] Dr. Yash Mckeon EGFR-AF EMIRATI >60 Normal >=60 [facility] Comment on above: Performed By: #### P OCGLUC #### [facility] [address] [address] [address] Yash Mckeon EGFR-NON AF EMIRATI >60 Normal >=60 [facility] Comment on above: Performed By: #### P OCGLUC #### [facility] [address] [address] [address] Yash Mckeon Glucose [Mass/Vol] 174 mg/dL Critically high 74-106 T [facility] Comment on above: Performed By: #### P OCGLUC #### [facility] [address] [place] [address] Dr. Yash Mckeon Potassium [Moles/Vol] 4.2 mmol/L Normal 3.5-5.1 [facility] Comment on above: Performed By: #### P OCGLUC #### [facility] [address] [place], [place] [address] Dr. Yash Mckeon Sodium [Moles/Vol] 139 mmol/L Normal 136-145 [facility] Comment on above: Performed By: #### P OCGLUC #### [facility] [address] [place], [place] [address] Dr. Yash Mckeon Urea nitrogen [Mass/Vol] 12.0 mg/dL Normal 7.0-18.0 [facility] Comment on above: Performed By: #### P OCGLUC #### [facility] [address] [place], [place] [address] Dr. Yash Mckeon Urea nitrogen/Creatinine [Mass ratio] 10.9 mg/mg Normal [facility] Comment on above: Performed By: #### P OCGLUC #### [facility] [address] [address] [address] Yash Mckeon TROPONIN, HIGH SENSITIVITYon 02-17-2022 HSTROP <4.0 Normal 4.0-76.1 [facility] Comment on above: Result Comment: CUT- OFF POINTS HAVE BEEN ESTABLISHED BASED ON THE FOURTH UNIVERSAL DEFINITIONS OF MYOCARDIAL INFARCTION. THE UPPER REFERENCE LIMIT (URL) OF TROPONIN, DEFINED THE 99TH PERCENTILE OF cTnI DISTRIBUTION IN A REFERENCE POPULATION, HAS BEEN CONFIRMED THE DECISION THRESHOLD FOR AR DIAGNOSIS. Performed By: #### P OCGLUC #### [facility] [address] [address] [address] Yash Mckeon XR RIBS RT PA [...] JUANITA DYKES Date: 2022-02-17 15:26 Normal [facility] BASIC METABOLIC PANELon 08-25 Anion gap [Moles/Vol] 17 mmol/L Normal 10 - 20 [facility] Comment on above: Performed By: #### B MP #### [address] [address] Calcium [Mass/Vol] 8.7 mg/dL Normal 8.6 - 10.3 [facility] Comment on above: Performed By: #### B MP #### [address] [address] Chloride [Moles/Vol] 103 mmol/L Normal 98 - 107 [facility] Comment on above: Performed By: #### B MP #### [address] [address] Creatinine [Mass/Vol] 0.88 mg/dL Normal 0.50 - 1.30 [facility] Comment on above: Performed By: #### B MP #### [address] [address] GFR- AM. >60 Normal >60 [facility] Comment on above: Result Comment: CALC ULATIONS OF ESTIMATED GFR ARE PERFORMED USING THE MDRD STUDY EQUATION FOR THE IDMS-TRACEABLE CREATININE METHODS. CLIN CHEM 2007;53:766-72 Performed By: #### B MP #### [address] [address] GFR-NON AM. >60 Normal >60 [facility] Comment on above: Performed By: #### B MP #### [address] [address] Glucose [Mass/Vol] 252 mg/dL High 74 - 99 [facility] Comment on above: Performed By: #### B MP #### [address] [address] HCO3 (Bld) [Moles/Vol] 19 mmol/L Low 21 - 32 [facility] Comment on above: Performed By: #### B MP #### [address] [address] Potassium [Moles/Vol] 4.1 mmol/L Normal 3.5 - 5.3 [facility] Comment on above: Performed By: #### B MP #### [facility] [address] [place] [address] Sodium [Moles/Vol] 135 mmol/L Low 136 - 145 [facility] Comment on above: Performed By: #### B MP #### [facility] [address] [place] [address] Urea nitrogen [Mass/Vol] 13 mg/dL Normal 6 - 23 [facility] Comment on above: Performed By: #### B MP #### [facility] [address] [place] [address] GLUCOSE-POCTon 09-05-2020 Glucose [Mass/Vol] 276 mg/dL High 74 - 99 [facility] Comment on above: Performed By: #### G LATA #### [facility] [address] [place] [address] History and Physical - Surgi kellie Update [...] Updated: 05-Sep-2020 11:26 by Nicky Garay) Normal [facility] Operative Reports - [place] 09[place]2020 Operative Reports - [place] PREOPERATIVE INDICATION: Phimosis. PREOPERATIVE DIAGNOSIS: Phimosis. POSTOPERATIVE [...] NICKY GARAY MD EST EST DICTATION NUMBER: [id number] INTERNAL JOB NUMBER: [id number] Electronic Signatures: Nicky Garay) (Signed on 15-Sep-2020 07:34) Authored Unsigned, Draft (SYS GENERATED) (Entered on 06-Sep-2020 07:26) Entered Last Updated: 15-Sep-2020 07:34 by Nicky Garay) Normal [facility] Order Reconciliationon 09-05 Order Reconciliation Page 1 Discharge Reconciliation Document Reconciliation Type: Discharge requested on behalf of Radha Madrigal (Physician) done by Radha Madrigal (Fellow)) Discharge - Reconciliation: 05-Sep-2020 12:55 by: [...] be shared with your follow-up providers (doctor, system controller, physical therapist, etc.). Follow Up with in [...] be shared with your follow-up providers (doctor, system controller, physical therapist, etc.). Follow Up with in [...] but has not started this yet Normal [facility] 09-05-2020 [place] [facility] Name BRIAN TSE Pathologist: CHRIS MACEDO [...] 2.5 x 0.5 x 0.5 cm respectively. Vacuum Closing Machine Operator sections are submitted in 1 cassette. TNB tnb/09/05/2020 [facility] Department of Pathology [address] [place] [address] Normal [facility] Comment on above: Performed By: #### P #### [facility] [address] [facility] [address] Preop Checkliston 09-05-2020 Preop Checklist Preop Checklist: Preop Checklist: Arrival [id number] Arrival Time09:42 Procedure TypeCIRCUMCISION Temperature C36.2 degrees C Temperature F97.1 degrees F Heart Rate70 beats per minute Respiratory Rate18 breath per minute Blood Pressure Hneciskm278 mm/Hg Blood Pressure Psfczavxn33 mm/Hg ID Band Onyes Allergy Bandno known [...] Updated: 05-Sep-2020 09:48 by Zainab Laguna) Normal [facility] URINE CULTURE,BACTERIALon URINE CULTURE,BACTERIAL PATIENT: BRIAN TSE LOCATION: [facility]#: [id number] : 82 AGE: SEX: M ORDERED BY: NICKY GARAY SOURCE: URINE COLLECTED: 09/05/20 08:16 ANTIBIOTICS AT REINA.: RECEIVED : 09/05/20 11:32 SITE: R E S U L T S URINE CULTURE,BACTERIAL FINAL 09/06/20 07:51 NO SIGNIFICANT GROWTH. Normal [facility] Comment on above: Performed By: #### U [facility] #### [facility] [address] [address] CORONAVIRUS 2019, SCREEN ASY MPTOMATICon 09-03-2020 CORONAVIRUS 2019,PCR NOT DETECTED Normal Not Detected [facility] Comment on above: Result Comment: . [...] patient management decisions. Fact sheet for providers: https://www.fda.gov/media/392121/download Fact sheet for patients: https://www.fda.gov/media/191831/download This test has received FDA Emergency Use Authorization (EUA) and has been verified by [facility] ([facility]). This test is only authorized for the duration of time that circumstances exist to justify the authorization of the emergency use of in vitro diagnostic tests for the detection of SARS-CoV-2 virus and/or diagnosis of COVID-19 infection under section 564(b)(1) of the Act, 21 U.S.C. 360bbb-3(b)(1), unless the authorization is terminated or revoked sooner. [facility] is certified under CLIA-88 as qualified to perform high complexity testing. Testing is performed in the [facility] laboratories located at [id number] [place] [address]. Performed By: #### C OVSC #### [facility] [id number] [place] [address]. [place] [address] Lab Specimen Source Nasal, Nasopharyngeal Normal [facility] Comment on above: Performed By: #### C OVSC #### [facility] [id number] [place] [address]. [place] [address] Covid 19 Resultson 1 Covid 19 Results [...] may also be contacted by the [facility] [place] [facility] to see if any of your [...] or Naproxen (Aleve) can also be used. Hvbv-wdr-ahpsbvg cough and cold medicines can be used according to the instructions on the package. Some jfxp-lsw-gsarmoz medicines also contain acetaminophen. Make sure you [...] water are not available, use alcohol-based hand medium cycle salesperson. Avoid touching your eyes, nose, and mouth [...] a total of 10 days. Additional resources: [facility] COVID Hotline at 1-689-2NUCHDX ( ). COVID-19 Careline at (availabl e 24 hours per day, seven days a week if you or a loved one is experiencing anxiety related to the coronavirus pandemic). Clinical research opportunities: is conducting research studies to develop better testing and treatments for COVID. Do you want any information on how to participate Call [phone]. Websites: hospitals.org or www.CDC.gov Follow My Health / My UHCare (for other test results): Revised 06/10/2020 Electronic Signatures: [employer] (ADMIN) (Signature pending) Authored Last Updated: 03-Sep-2020 21:24 by [employer] (ADMIN) Normal [facility] CNOVon 10-14-2017 CNOV Office Visit (LOORRM) BRIAN PEÑA [facility][id number]) 1980 [facility]17 11:00 AM NAHOMY SHARP) [...] Very bad dreamsDate Reviewed: 10/14/2017Reviewed by: Nahomy Ornelas) Scotch - Fully AssessedReason for Visit: right arm pain [Other]Primary Visit Diagnosis: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 with foodDisp: 60 tabletRfl: 1 CONSULT TO PHYSICAL THERAPY [9042] Order #: [id number]: 1Prescriptions as of 10/14/2017 Sig: ATORVASTATIN 10 [...] Historical Med Sig: Disc: Erroneous entryEncounter Number: [id number] Status:Closed by NAHOMY SHARP PA-C on 10/14/17 Normal [facility] PROGRESSon 10-14-2017 PROGRESS HNO ID: [id number]: Nahomy De Los Santos (Pa): (none)Author Type: Physician AssistantType: Progress NotesFiled: 10/14/2017 [...] fileFAMILY HISTORY:No family history on file. Normal [facility] PROGRESS HNO ID: [id number]: Nahomy Valadez (Pa)e: Orthopaedic SurgeryAuthor Type: Physician AssistantType: Progress NotesFiled: 10/20/2017 3:42 PMNote Text: [facility] [address] [place], [place] [address] CLINIC NOTE Department of Orthopaedics - CYNTHIA KeitaCNAME: BRIAN TSE NO.: [id number] OF SERVICE: 10/14/2017CHIEF COMPLAINT: Right shoulder pain.HISTORY [...] temporarily. [facility] and [facility]-rays were obtained followed by an MRI. He is here todayfor further evaluation and discussion of treatment. He is gxma-bnfmjzf-uukxbcbiv diabetic who was under poor control several [...] patient today on disk from 09/13/2017done at [facility] were personally interpreted andreviewed with the patient today. They show some AC joint arthritis. Goodacromiohumeral distance. No significant glenohumeral arthritis. Noevidence of fracture. No other osseous abnormalities.MRI: MRI dated 10/01/2017 from [facility] shows a mildrotator cuff tendinosis, but [...] therapy, [facility] [place] [facility]. Will follow up in 6 weeks forrecheck. Discussed possibly a cortisone injection at that time ifnecessary. Declines today as he does not like needles.Dictated By: Pepe Zurita Dictated: 10/19/2017Date Typed: [facility] [place] 10/19/2017[facility]# [id number] Normal [facility] SR-MRI Shoulder w/o Contrast Right IMPORTon 10-01-2017 SR-MRI Shoulder w/o Contrast Right IMPORT Images were obtained outside of [facility] [id number] Normal [facility] SR-XR Shoulder Complete Righ t IMPORTon 09-13-2017 SR-XR Shoulder Complete Right IMPORT Images were obtained outside of [facility] [id number] Normal [facility] Vital Signs Date Time Vital Sign Value Performing Clinician Facility 12-28-2024 11:56-0400 Body height 180.3 cm Don Santos DPM FACFAS Work Phone: [facility] 12-28-2024 11:56-0400 Body mass index (BMI) [Ratio] 34.59 kg/m2 Don Santos DPM FACFAS Work Phone: [facility] 12-28-2024 11:56-0400 Body weight 112.49 kg Don Santos DPM FACFAS Work Phone: [facility] 12-28-2024 11:56-0400 Diastolic blood pressure 77 mm[Hg] Don Dolce DPM FACFAS Work Phone: [facility] 12-28-2024 11:56-0400 Heart rate 73 /min Don Dolce DPM FACFAS Work Phone: [facility] 12-28-2024 11:56-0400 Systolic blood pressure 128 mm[Hg] Don Dolce DPM FACFAS Work Phone: [facility] 12-05-2024 10:04-0400 Body height 180.3 cm Don Dolce DPM FACFAS Work Phone: [facility] 12-05-2024 10:04-0400 Body mass index (BMI) [Ratio] 34.59 kg/m2 Don Dolce DPM FACFAS Work Phone: [facility] 12-05-2024 10:04-0400 Body weight 112.49 kg Don Dolce DPM FACFAS Work Phone: [facility] 12-05-2024 10:04-0400 Diastolic blood pressure 77 mm[Hg] Don Dolce DPM FACFAS Work Phone: [facility] 12-05-2024 10:04-0400 Heart rate 72 /min Don Dolce DPM FACFAS Work Phone: [facility] 12-05-2024 10:04-0400 Systolic blood pressure 129 mm[Hg] Don Dolce DPM FACFAS Work Phone: [facility] 11-20-2024 09:36-0400 Body height 180.3 cm Don Dolce DPM FACFAS Work Phone: [facility] 11-20-2024 09:36-0400 Body mass index (BMI) [Ratio] 34.59 kg/m2 Don Dolce DPM FACFAS Work Phone: [facility] 11-20-2024 09:36-0400 Body weight 112.49 kg Don Dolce DPM FACFAS Work Phone: [facility] 11-20-2024 09:36-0400 Diastolic blood pressure 75 mm[Hg] Don Dolce DPM FACFAS Work Phone: [facility] 11-20-2024 09:36-0400 Heart rate 73 /min Don Dolce DPM FACFAS Work Phone: [facility] 11-20-2024 09:36-0400 Systolic blood pressure 128 mm[Hg] Don Dolce DPM FACFAS Work Phone: [facility] 11-13-2024 09:51-0400 Body height 180.3 cm Don Dolce DPM FACFAS Work Phone: [facility] 11-13-2024 09:51-0400 Body mass index (BMI) [Ratio] 33.47 kg/m2 Don Dolce DPM FACFAS Work Phone: [facility] 11-13-2024 09:51-0400 Body weight 108.86 kg Don Dolce DPM FACFAS Work Phone: [facility] 11-13-2024 09:51-0400 Diastolic blood pressure 77 mm[Hg] Don Dolce DPM FACFAS Work Phone: [facility] 11-13-2024 09:51-0400 Heart rate 74 /min Don Dolce DPM FACFAS Work Phone: [facility] 11-13-2024 09:51-0400 Systolic blood pressure 129 mm[Hg] Don Dolce DPM FACFAS Work Phone: [facility] 11-06-2024 09:34-0400 Body height 180.3 cm Don Dolce DPM FACFAS Work Phone: [facility] 11-06-2024 09:34-0400 Body mass index (BMI) [Ratio] 33.61 kg/m2 Don Dolce DPM FACFAS Work Phone: [facility] 11-06-2024 09:34-0400 Body weight 109.32 kg Don Dolce DPM FACFAS Work Phone: [facility] 11-06-2024 09:34-0400 Diastolic blood pressure 75 mm[Hg] Don Dolce DPM FACFAS Work Phone: [facility] 11-06-2024 09:34-0400 Heart rate 71 /min Don Dolce DPM FACFAS Work Phone: [facility] 11-06-2024 09:34-0400 Systolic blood pressure 128 mm[Hg] Don Dolce DPM FACFAS Work Phone: [facility] 10-26-2024 10:46-0400 Body height 180.3 cm Don Dolce DPM FACFAS Work Phone: [facility] 10-26-2024 10:46-0400 Body mass index (BMI) [Ratio] 33.61 kg/m2 Don Dolce DPM FACFAS Work Phone: [facility] 10-26-2024 10:46-0400 Body weight 109.32 kg Don Dolce DPM FACFAS Work Phone: [facility] 10-26-2024 10:46-0400 Diastolic blood pressure 77 mm[Hg] Don Dolce DPM FACFAS Work Phone: [facility] 10-26-2024 10:46-0400 Heart rate 72 /min Don Dolce DPM FACFAS Work Phone: [facility] 10-26-2024 10:46-0400 Systolic blood pressure 129 mm[Hg] Don Dolce DPM FACFAS Work Phone: [facility] 09-25-2024 11:07-0500 Body height 175.3 cm Juanita Dye SUPPLY CHAIN GENERALIST-AIR BRAKE OPERATOR Work Phone: [facility] 09-25-2024 11:07-0500 Body mass index (BMI) [Ratio] 33.64 kg/m2 Juanita Dye SUPPLY CHAIN GENERALIST-AIR BRAKE OPERATOR Work Phone: [facility] 09-25-2024 11:07-0500 Body temperature 98.4 [degF] Juanita Dye SUPPLY CHAIN GENERALIST-AIR BRAKE OPERATOR Work Phone: [facility] 09-25-2024 11:07-0500 Body weight 103.33 kg Juanita Dye SUPPLY CHAIN GENERALIST-AIR BRAKE OPERATOR Work Phone: [facility] 09-25-2024 11:07-0500 Diastolic blood pressure 80 mm[Hg] Juanita Dye SUPPLY CHAIN GENERALIST-AIR BRAKE OPERATOR Work Phone: [facility] 09-25-2024 11:07-0500 Heart rate 82 /min Juanita Dye SUPPLY CHAIN GENERALIST-AIR BRAKE OPERATOR Work Phone: [facility] 09-25-2024 11:07-0500 SaO2% (BldA) [Mass fraction] 97 % Juanita Dye SUPPLY CHAIN GENERALIST-AIR BRAKE OPERATOR Work Phone: [facility] 09-25-2024 11:07-0500 Systolic blood pressure 122 mm[Hg] Juanita Dye SUPPLY CHAIN GENERALIST-AIR BRAKE OPERATOR Work Phone: [facility] 05-07-2024 14:57-0400 Body height 180.3 cm Don Sherrill DPM FACFAS Work Phone: [facility] 05-07-2024 14:57-0400 Body mass index (BMI) [Ratio] 33.61 kg/m2 Don Pratherce DPM FACFAS Work Phone: [facility] 05-07-2024 14:57-0400 Body weight 109.32 kg Don Santos DPM FACFAS Work Phone: [facility] 05-07-2024 14:57-0400 Diastolic blood pressure 79 mm[Hg] Don Santos DPM FACFAS Work Phone: [facility] 05-07-2024 14:57-0400 Heart rate 74 /min Don Santos DPM FACFAS Work Phone: [facility] 05-07-2024 14:57-0400 Systolic blood pressure 128 mm[Hg] Don Santos DPM FACFAS Work Phone: [facility] 02-14-2024 16:11-0400 Body temperature 98.78 [degF] [facility] 02-14-2024 16:11-0400 Diastolic blood pressure 86 mm[Hg] [facility] 02-14-2024 16:11-0400 Heart rate 79 /min [facility] 02-14-2024 16:11-0400 Respiratory rate 18 /min [facility] 02-14-2024 16:11-0400 SaO2% (BldA) [Mass fraction] 98 % [facility] 02-14-2024 16:11-0400 Systolic blood pressure 131 mm[Hg] [facility] 2023 11:48-0400 Body height 176.5 cm Compa Waite SUPPLY CHAIN GENERALIST-AIR BRAKE OPERATOR Work Phone: [facility] 2023 11:48-0400 Body mass index (BMI) [Ratio] 31.16 kg/m2 Compa Waite SUPPLY CHAIN GENERALIST-AIR BRAKE OPERATOR Work Phone: [facility] 2023 11:48-0400 Body temperature 98.1 [degF] Compa Ravindra SUPPLY CHAIN GENERALIST-AIR BRAKE OPERATOR Work Phone: [facility] 2023 11:48-0400 Body weight 97.07 kg Compa Waite SUPPLY CHAIN GENERALIST-AIR BRAKE OPERATOR Work Phone: [facility] 2023 11:48-0400 Diastolic blood pressure 74 mm[Hg] Compa Ravindra SUPPLY CHAIN GENERALIST-AIR BRAKE OPERATOR Work Phone: [facility] 2023 11:48-0400 Heart rate 65 /min Compa Waite SUPPLY CHAIN GENERALIST-AIR BRAKE OPERATOR Work Phone: [facility] 2023 11:48-0400 SaO2% (BldA) [Mass fraction] 99 % Compa Waite SUPPLY CHAIN GENERALIST-AIR BRAKE OPERATOR Work Phone: [facility] 2023 11:48-0400 Systolic blood pressure 124 mm[Hg] Compa Waite SUPPLY CHAIN GENERALIST-AIR BRAKE OPERATOR Work Phone: [employer] 01-06-2023 10:25-0400 Body height 177.8 cm Georgia Del Cid Other [email or web address] Other 01-06-2023 10:25-0400 Body mass index (BMI) [Ratio] 31.1 kg/m2 Georgia Del Cid Other [email or web address] Other 01-06-2023 10:25-0400 Body temperature 98.7 [degF] Georgia Del Cid Other [email or web address] Other 01-06-2023 10:25-0400 Body weight 98.34 kg Georgia Del Cid Other [email or web address] Other 01-06-2023 10:25-0400 Diastolic blood pressure 88 mm[Hg] Georgia Del Cid Other [email or web address] Other 01-06-2023 10:25-0400 Respiratory rate 18 /min Georgia Del Cid Other [email or web address] Other 01-06-2023 10:25-0400 SaO2% (BldA) [Mass fraction] 98 % Georgia Del Cid Other [email or web address] Other 01-06-2023 10:25-0400 Systolic blood pressure 136 mm[Hg] Georgia Del Cid Other [email or web address] Other 05-20-2022 16:12-0400 Blood Pressure Location Nicky SANFORD [facility] 05-20-2022 16:12-0400 Body temperature 98.06 [degF] Nicky PATELL [facility] 05-20-2022 16:12-0400 Diastolic blood pressure 74 mm[Hg] Nicky NILL [facility] 05-20-2022 16:12-0400 Heart rate 79 /min Nicky NILL [facility] 05-20-2022 16:12-0400 Mean blood pressure 85 mm[Hg] Nicky NILL [facility] 05-20-2022 16:12-0400 Respiratory rate 16 /min Nicky NILL [facility] 05-20-2022 16:12-0400 SaO2% (BldA) [Mass fraction] 96 % Nicky NILL [facility] 05-20-2022 16:12-0400 Systolic blood pressure 106 mm[Hg] Nicky NILL [facility] 05-20-2022 14:41-0400 Blood Pressure Location Nicky NILL [facility] 05-20-2022 14:41-0400 Body temperature 98.06 [degF] Nicky NILL [facility] 05-20-2022 14:41-0400 Diastolic blood pressure 83 mm[Hg] Nicky NILL [facility] 05-20-2022 14:41-0400 Heart rate 70 /min Nicky NILL [facility] 05-20-2022 14:41-0400 Respiratory rate 16 /min Nicky NILL [facility] 05-20-2022 14:41-0400 SaO2% (BldA) [Mass fraction] 99 % Nicky NILL [facility] 05-20-2022 14:41-0400 Systolic blood pressure 135 mm[Hg] Nicky NILL [facility] 05-20-2022 14:38-0400 Body temperature 97.52 [degF] Nicky NILL [facility] 05-20-2022 14:38-0400 Diastolic blood pressure 85 mm[Hg] Nicky NILL [facility] 05-20-2022 14:38-0400 Heart rate 67 /min Nicky NILL [facility] 05-20-2022 14:38-0400 Respiratory rate 14 /min Nicky NILL [facility] 05-20-2022 14:38-0400 SaO2% (BldA) [Mass fraction] 100 % Nicky NILL [facility] 05-20-2022 14:38-0400 Systolic blood pressure 122 mm[Hg] Nicky NILL [facility] 05-20-2022 14:25-0400 Respiratory rate 11 /min Nicky NILL [facility] 05-20-2022 14:15-0400 Respiratory rate 15 /min Nicky NILL [facility] 05-20-2022 13:41-0400 Blood Pressure Location Nicky NILL [facility] 05-20-2022 13:41-0400 Body temperature 97.52 [degF] Nicky NILL [facility] 05-20-2022 13:35-0400 Respiratory rate 14 /min Nicky NILL [facility] 05-20-2022 10:00-0400 Body temperature 98.06 [degF] Nicky NILL [facility] 05-20-2022 10:00-0400 Mean blood pressure 103 mm[Hg] Nicky NILL [facility] 05-20-2022 10:00-0400 Heart rate 66 /min Nicky NILL [facility] 05-13-2022 12:32-0400 Blood Pressure Location Nicky NILL [facility] 05-13-2022 12:32-0400 BP/Pulse Patient Position Nicky NILL [facility] 05-13-2022 12:32-0400 Diastolic blood pressure 86 mm[Hg] Nicky NILL [facility] 05-13-2022 12:32-0400 Heart rate 67 /min Nicky NILL [facility] 05-13-2022 12:32-0400 Mean blood pressure 102 mm[Hg] Nicky NILL [facility] 05-13-2022 12:32-0400 Respiratory rate 18 /min Nicky NILL [facility] 05-13-2022 12:32-0400 Systolic blood pressure 134 mm[Hg] Nicky NILL [facility] 05-13-2022 12:30-0400 Blood Pressure Location Nicky NILL [facility] 05-13-2022 12:30-0400 BP/Pulse Patient Position Nicky NILL [facility] 05-13-2022 12:30-0400 Diastolic blood pressure 83 mm[Hg] Nicky NILL [facility] 05-13-2022 12:30-0400 Heart rate 69 /min Nicky NILL [facility] 05-13-2022 12:30-0400 Mean blood pressure 102 mm[Hg] Nicky NILL [facility] 05-13-2022 12:30-0400 SaO2% (BldA) [Mass fraction] 97 % Nicky NILL [facility] 05-13-2022 12:30-0400 Systolic blood pressure 140 mm[Hg] Nicky NILL [facility] 05-13-2022 12:30-0400 Body temperature 97.7 [degF] Nicky NILL [facility] 04-27-2022 09:05-0400 Blood Pressure Location Nicky NILL [facility] [place] 04-27-2022 09:05-0400 Diastolic blood pressure 95 mm[Hg] Nicky NILL [facility] [place] 04-27-2022 09:05-0400 Heart rate 58 /min Nicky NILL [facility] [place] 04-27-2022 09:05-0400 Respiratory rate 16 /min Nicky NILL [facility] [place] 04-27-2022 09:05-0400 Systolic blood pressure 141 mm[Hg] Nicky NILL [facility] [place] 04-23-2022 11:11-0400 Blood Pressure Location Patrick OWEN [facility] 04-23-2022 11:11-0400 Diastolic blood pressure 87 mm[Hg] Patrick OWEN [facility] 04-23-2022 11:11-0400 Heart rate 75 /min Patrick OWEN [facility] 04-23-2022 11:11-0400 Respiratory rate 16 /min Patrick OWEN [facility] 04-23-2022 11:11-0400 Systolic blood pressure 130 mm[Hg] Patrick OWEN [facility] Encounters Encounter Date Encounter Type Care Provider Facility Start: 01-23-2025 End: 01-23-2025 Orders Only Compa Phans SUPPLY CHAIN GENERALIST-AIR BRAKE OPERATOR Work Phone: [facility] Start: 12-28-2024 End: 12-28-2024 Bamboo flowsheet Don D Dolce DPM FACFAS Work Phone: [facility] Start: 12-28-2024 End: 12-28-2024 Bamboo flowsheet Don D Dolce DPM FACFAS Work Phone: [facility] Start: 12-28-2024 End: 12-28-2024 ambulatory DON D DOLCE Not Available Start: 12-28-2024 End: 12-28-2024 Patient encounter procedure Don D Dolce DPM FACFAS Work Phone: [facility] Comment on above: Hallux interphalange us, acquired, left (Primary Dx); Left foot pain; Hammer toe of left foot Start: 12-05-2024 End: 12-05-2024 Bamboo flowsheet Don D Dolce DPM FACFAS Work Phone: [facility] Start: 12-05-2024 End: 12-05-2024 Bamboo flowsheet Don D Dolce DPM FACFAS Work Phone: [facility] Start: 12-05-2024 End: 12-05-2024 ambulatory DON D DOLCE Not Available Start: 12-05-2024 End: 12-05-2024 Patient encounter procedure Don D Dolce DPM FACFAS Work Phone: [facility] Comment on above: Hallux interphalange us, acquired, left (Primary Dx); Left foot pain Start: 11-20-2024 End: 11-20-2024 Bamboo flowsheet Don D Dolce DPM FACFAS Work Phone: [facility] Start: 11-20-2024 End: 11-20-2024 Bamboo flowsheet Don D Dolce DPM FACFAS Work Phone: [facility] Start: 11-20-2024 End: 11-20-2024 ambulatory DON D DOLCE Not Available Start: 11-20-2024 End: 11-20-2024 Patient encounter procedure Don D Dolce DPM FACFAS Work Phone: [facility] Comment on above: Hammer toe of left f oot (Primary Dx); Pain due to internal orthopedic prosthetic device, initial encounter ([facility] Start: 11-13-2024 End: 11-13-2024 Bamboo flowsheet Don D Dolce DPM FACFAS Work Phone: [facility] Start: 11-13-2024 End: 11-13-2024 Bamboo flowsheet Don D Dolce DPM FACFAS Work Phone: [facility] Start: 11-13-2024 End: 11-13-2024 Office outpatient visit 15 minutes Don D Dolce DPM FACFAS Work Phone: [facility] Comment on above: Tinea pedis of right foot (Primary Dx); Hallux interphalangeus, acquired, left; Hammer toe of left foot Start: 11-13-2024 End: 11-13-2024 ambulatory DON D DOLCE Not Available Start: 11-06-2024 End: 11-06-2024 Bamboo flowsheet Don D Dolce DPM FACFAS Work Phone: [facility] Start: 11-06-2024 End: 11-06-2024 Bamboo flowsheet Don D Dolce DPM FACFAS Work Phone: [facility] Start: 11-06-2024 End: 11-06-2024 Office outpatient visit 15 minutes Don D Dolce DPM FACFAS Work Phone: [facility] Comment on above: Tinea pedis of right foot (Primary Dx); Left foot pain; Hallux interphalangeus, acquired, left; Ankle contracture, right Start: 11-06-2024 End: 11-06-2024 ambulatory DON D DOLCE Not Available Start: 10-31-2024 End: 10-31-2024 Telephone encounter Odn D Dolce DPM FACFAS Work Phone: [facility] Start: 10-26-2024 End: 10-26-2024 Bamboo flowsheet Don D Dolce DPM FACFAS Work Phone: [facility] Start: 10-26-2024 End: 10-26-2024 Bamboo flowsheet Don D Dolce DPM FACFAS Work Phone: [facility] Start: 10-26-2024 End: 10-26-2024 ambulatory DON D DOLCE Not Available Start: 10-26-2024 End: 10-26-2024 Office outpatient visit 25 minutes Don D Dolce DPM FACFAS Work Phone: [facility] Comment on above: 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) (Primary Dx); Hallux interphalangeus, acquired, left; Hammer toe of left foot Start: 10-23-2024 End: 10-23-2024 Clinisync Result Encounter Don D Dolce DPM FACFAS Work Phone: [facility] External Department Unsolicited Start: 10-23-2024 End: 10-23-2024 Clinisync Result Encounter Don D Dolce DPM FACFAS Work Phone: [facility] External Department Unsolicited Start: 10-10-2024 End: 10-10-2024 ambulatory DON D DOLCE Not Available Start: 10-01-2024 End: 10-01-2024 Telephone encounter [facility] Comment on above: New Patient Start: 09-26-2024 End: 09-26-2024 Orders Only Juanita Dye SUPPLY CHAIN GENERALIST-AIR BRAKE OPERATOR Work Phone: [facility] Comment on above: Vitamin B12 deficien cy (Primary Dx); Low serum vitamin D; Elevated triglycerides with high cholesterol; Dysesthesia affecting both sides of body Start: 09-25-2024 End: 09-25-2024 [facility] Start: 09-25-2024 End: 09-25-2024 Office outpatient visit 25 minutes Juanita Dye SUPPLY CHAIN GENERALIST-AIR BRAKE OPERATOR Work Phone: [facility] Comment on above: Cramp and spasm (Catrachita daya Dx); Lumbar spine pain; Cramping of feet; Diabetic peripheral neuropathy associated with type 2 diabetes mellitus (CMS-HCC); Obesity with body mass index 30 or greater; Sleep disturbance Start: 09-25-2024 End: 09-25-2024 ambulatory [facility] Vianey DYE [facility] Start: 05-07-2024 End: 05-07-2024 Office outpatient visit 25 minutes Don Santos DPM FACFAS Work Phone: [facility] Comment on above: 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) (Primary Dx); Abscess of toe, right; Contusion of right foot, initial encounter; Right foot pain Start: 05-07-2024 End: 05-07-2024 ambulatory DON SANTOS Not Available Start: 05-07-2024 End: 05-07-2024 Bamboo flowsheet Don Nancy Santos DPM FACFAS Work Phone: [facility] Start: 05-07-2024 End: 05-07-2024 Bamboo flowsheet Don Nancy Dolce DPM FACFAS Work Phone: [facility] Start: 02-14-2024 End: 02-14-2024 Emergency department patient visit Reddy Thao [facility] Start: 01-22-2024 End: 01-23-2024 Refill Compa Waite SUPPLY CHAIN GENERALIST-AIR BRAKE OPERATOR Work Phone: [facility] Comment on above: Type 2 diabetes josseline itus without complication, without long- term current use of insulin ([facility]) Start: 11-21-2023 End: 11-21-2023 Refill India Hansrl LEONEL [facility] Start: 2023 End: 2023 Office outpatient visit 15 minutes [facility] SUPPLY CHAIN GENERALIST-AIR BRAKE OPERATOR Work Phone: [facility] Comment on above: Encounter for occupa tional physical examination (Primary Dx); Type 2 diabetes mellitus without complication, without long-term current use of insulin ([facility]); Anxiety; Sleep disturbance Start: 2023 End: 2023 ambulatory [facility] Start: 08-08-2023 Refill Compa Emilie SUPPLY CHAIN GENERALIST-AIR BRAKE OPERATOR Work Phone: [facility] Start: 04-18-2023 End: 04-18-2023 Patient encounter procedure Patrick OWEN [facility] Start: 01-06-2023 End: 01-06-2023 ambulatory Georgia Del Cid Other [email or web address] Other Start: 01-06-2023 Office outpatient vi sit 15 minutes Georgia Del Cid [facility] Start: 11-30-2022 End: 11-30-2022 ambulatory Imad Asaad Facility:[facility] Start: 11-04-2022 End: 11-04-2022 ambulatory Imad Asaad Other [email or web address] Other Start: 11-04-2022 Telephone encounter Imad Asaad [facility] Start: 10-28-2022 End: 10-28-[address] PATRICK OWEN . Facility:[facility] Start: 10-26-[address] PATRICK OWEN . Fac ility:[facility] Start: 10-22-2022 End: 10-23-[address] PATRICK OWEN . Facility:[facility] Start: 10-21-2022 End: 10-21-2022 ambulatory Domonique L Myers Facility:[facility] Start: 10-21-2022 End: 10-21-2022 ambulatory DO Jude Ruvalcaba III Work Phone: [facility] Work Phone: Start: 10-21-2022 End: 10-21-2022 Patient encounter procedure DO Jude Ruvalcaba III Work Phone: [facility] Work Phone: Start: 06-25-2022 End: 06-25-2022 Patient encounter procedure Nicky R NILL [facility] Nill[facility] [place] Start: 06-02-2022 End: 06-02-2022 Patient encounter procedure Nicky R NILL [facility] [place] Start: 05-20-2022 End: 05-20-2022 Admission to same day surgery center Nicky R NILL [facility] Start: 05-13-2022 End: 05-13-2022 Patient encounter procedure Nicky R NILL [facility] Start: 04-27-2022 End: 04-27-2022 Patient encounter procedure Nicky R NILL [facility] [place] Start: 04-23-2022 End: 04-23-[address] PATRICK OWEN . Facility: Start: 04-23-2022 End: 04-23-2022 Patient encounter procedure Patrick OWEN [facility] [place] Start: 04-04-2022 End: 04-04-2022 ambulatory SALBADOR BOOKER Facility:[facility] Start: 02-17-2022 End: 02-17-2022 ambulatory [facility] SILVERMAN . Facility:[facility] Start: 10-14-2017 End: 10-17-2017 Ambulatory NAHOMY ORNELAS) [facility] Procedures Date Procedure Procedure Detail Performing Clinician Start: 12-28-2024 Radex foot complete minimum 3 views Don D Dolce DPM FACFAS Work Phone: Start: 12-05-2024 Radex foot complete minimum 3 views Don D Dolce DPM FACFAS Work Phone: Start: 11-20-2024 Radex foot complete minimum 3 views Don D Dolce DPM FACFAS Work Phone: Start: 11-06-2024 Radex foot complete minimum 3 views Don D Dolce DPM FACFAS Work Phone: Start: 10-23-2024 ALL CBC WITH AUTO DIFF Don D Dolce DPM FACFAS Work Phone: Start: 10-23-2024 ECG 12-LEAD Don D Dol ce DPM FACFAS Work Phone: Start: 09-25-2024 Adult depression scr eening assessment Juanita Dye SUPPLY CHAIN GENERALIST-AIR BRAKE OPERATOR Work Phone: Start: 07-04-2023 Adult depression scr eening assessment Compa Waite SUPPLY CHAIN GENERALIST-AIR BRAKE OPERATOR Work Phone: Start: 10-21-2022 Plain chest X-ray DO Ro meng Clementsers III Work Phone: Start: 09-27-2022 Microalbumin [Mass/v olume] in Urine by Test strip Compa Waite SUPPLY CHAIN GENERALIST-AIR BRAKE OPERATOR Work Phone: Start: 05-20-2022 Laparoscopy surg rpr initial inguinal hernia Nicky CHRISTINA Start: 11-03-2020 Follow-up visit Start: 08-28-2020 Follow-up visit Start: 02-27-2015 Harris bunionectomy, right BRAYDEN Start: 01-02-2015 Harris bunionectomy, left foot Patrick [...] Adult BMI Screening Adult BMI Screen ing [facility] Start: 09-25-2025 Depression Screening Depression Scre ening [facility] Start: 09-25-2025 Tobacco Screening Tobacco Screening [facility] Start: 03-25-2025 Influenza vaccination [facility] Start: 12-26-2024 Hemoglobin A1c measurement Diabetes: Hemoglobin A1C [facility] Start: 12-26-2024 End: 12-26-2024 Patient encounter procedure 12/26/2024 10:40 AM EDT Office Visit [facility] [address] [place] [address] [place] [address] Compa Waite APRN-CNP [address] [place] [address], [place] [address] [facility] Start: 12-19-2024 End: 12-19-2024 Patient encounter procedure 12/19/2024 10:50 AM EDT Office Visit [facility] [address] [place] [phone] Don Santos, DPM FACFAS [address] [place] [address] [facility] Start: 12-04-2024 End: 12-04-2024 Patient encounter procedure 12/04/2024 9:40 AM EDT Office Visit [facility] [address] [facility] [phone] Don Santos, DPM FACFAS [address] [place] [address] [facility] Start: 11-20-2024 End: 11-20-2024 Patient encounter procedure 11/20/2024 9:20 AM EDT Office Visit [facility] [address] [facility] [place] [phone] Don Santos, DPM FACFAS [address] [place] [address] [facility] Start: 11-16-2024 End: 11-16-2024 Patient encounter procedure 11/16/2024 2:30 PM EDT Office Visit [facility], Department of [address] [place] [phone] Eleni Jaimes MD [address] [place] [address] [address] [place] [address] [facility], A Department of [facility] Start: 11-13-2024 End: 11-13-2024 Patient encounter procedure [facility] Comment on above: Arrived Start: 11-06-2024 End: 11-06-2024 Patient encounter procedure [facility] Comment on above: Arrived Start: 10-26-2024 Adult BMI Screening Adult BMI Screen ing [facility] Start: 10-26-2024 Tobacco Screening Tobacco Screening [facility] Start: 10-26-2024 End: 10-26-2024 Patient encounter procedure 10/26/2024 10:20 AM EDT Office Visit [facility] [address] [place] [address] Don Santos, DPM FACFAS [address] [facility] [place], [place] [phone] [facility] Start: 09-25-2024 End: 09-25-2025 XR Lumbar spine Views W flexion and W extension X-ray spine lumbar ap, lateral, flexion and extension only Imaging Routine Lumbar spine pain Expected: 09/25/2024, Expires: 09/25/2025 [employer] Work Phone: Comment on above: Expected: 09/25/2024 , Expires: 09/25/2025 Start: 07-05-2024 Tobacco Screening Tobacco Screening [facility] Start: 07-04-2024 Adult BMI Screening Adult BMI Screen ing [facility] Start: 07-04-2024 Depression Screening Depression Scre ening [facility] Start: 05-21-2024 End: 05-21-2024 Patient encounter procedure 05/21/2024 3:40 PM EDT Office Visit [facility] [address] [place] [phone] Don Santos, DPM FACFAS [address] [place] [address] [facility] Start: 05-07-2024 End: 05-07-2024 Patient encounter procedure 05/07/2024 2:40 PM EDT Office Visit [facility] [address] [place] [address] Don Santos, DPM FACFAS [address] [place] [address] Arrived [facility] Comment on above: Arrived Start: 03-25-2024 [facility] Start: 01-30-2024 End: 01-30-2024 Patient encounter procedure 01/30/2024 4:15 PM EDT [facility] [address] [place] [address], [place] [address] 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 Start: 10-31-2023 End: 10-31-2023 Patient encounter procedure 10/31/2023 4:00 PM EDT Office Visit [facility] [address] [place] [address], [place] [address] [facility]a Waite [facility] [address] [place] [address], [place] [phone] [facility] Start: 10-03-2023 End: 10-03-2023 Patient encounter procedure 10/03/2023 11:00 AM EDT Office Visit [facility] [address] [place] [address], [place] [phone] Compa Waite [facility] [address] [place] [address], [place] [phone] [facility] Start: 09-28-2023 Urine screening for protein [facility] Start: 03-25-2023 Influenza vaccination Influenza Vacc ine [facility] Start: 09-09-2022 Diabetic foot examination Diabetic Foot Exam [facility] Start: 2000 DTaP,Tdap and Td Vaccines (1 - Tdap) DTaP,Tdap and Td Vaccines (1 - Tdap) [facility] Start: 10-28-1999 Adult BMI Follow Up Plan Adult BMI Follow Up Plan [facility] Start: 10-28-1999 Diabetic foot examination Diabetic Foot Exam [facility] Start: 10-28-1991 Glaucoma screening Diabetes: R etinopathy Screening [facility] Start: 1981 Glaucoma screening Diabetic Op hthalmology Exam [facility] Start: 1981 Statin Use: Diabetic Statin Use: Riya johnjoann [facility] Start: 1981 Tobacco Counseling Tobacco Counselin luis carlos [facility] End: 09-25-2025 CBC W Auto Differential panel - Blood CBC auto differential Lab Routine Lumbar spine pain Cramping of feet Cramp and spasm Diabetic peripheral neuropathy associated with type 2 diabetes mellitus ([facility]) Obesity with body mass index 30 or greater Sleep disturbance 1 Occurrences starting 09/25/2024 until 09/25/2025 [facility] Comment on above: 1 Occurrences starti ng 09/25/2024 until 09/25/2025 End: 09-25-2025 Comprehensive metabolic 2000 panel - Serum or Plasma Comprehensive metabolic panel Lab Routine Lumbar spine pain Cramping of feet Cramp and spasm Diabetic peripheral neuropathy associated with type 2 diabetes mellitus ([facility]) Obesity with body mass index 30 or greater Sleep disturbance 1 Occurrences starting 09/25/2024 until 09/25/2025 [facility] Comment on above: 1 Occurrences starti ng 09/25/2024 until 09/25/2025 End: 09-25-2025 Cyanocobalamin vitamin b-12 Vitamin B12 Lab Routine Lumbar spine pain Cramping of feet Cramp and spasm Diabetic peripheral neuropathy associated with type 2 diabetes mellitus ([facility]) Obesity with body mass index 30 or greater Sleep disturbance 1 Occurrences starting 09/25/2024 until 09/25/2025 [facility] Comment on above: 1 Occurrences starti ng 09/25/2024 until 09/25/2025 End: 09-25-2025 Hemoglobin A1c/Hemoglobin.total in Blood Hemoglobin A1c Lab Routine Lumbar spine pain Cramping of feet Cramp and spasm Diabetic peripheral neuropathy associated with type 2 diabetes mellitus ([facility]) Obesity with body mass index 30 or greater Sleep disturbance 1 Occurrences starting 09/25/2024 until 09/25/2025 [facility] Comment on above: 1 Occurrences starti ng 09/25/2024 until 09/25/2025 End: 09-25-2025 Lipid 1996 panel - Serum or Plasma Lipid profile Lab Routine Lumbar spine pain Cramping of feet Cramp and spasm Diabetic peripheral neuropathy associated with type 2 diabetes mellitus ([facility]) Obesity with body mass index 30 or greater Sleep disturbance 1 Occurrences starting 09/25/2024 until 09/25/2025 [facility] Comment on above: 1 Occurrences starti ng 09/25/2024 until 09/25/2025 End: 09-25-2025 Magnesium [Mass/volume] in Serum or Plasma Magnesium Lab Routine Lumbar spine pain Cramping of feet Cramp and spasm Diabetic peripheral neuropathy associated with type 2 diabetes mellitus ([facility]) Obesity with body mass index 30 or greater Sleep disturbance 1 Occurrences starting 09/25/2024 until 09/25/2025 [facility] Comment on above: 1 Occurrences starti ng 09/25/2024 until 09/25/2025 End: 09-25-2025 Thyroid profile includes TSH FT4 Thyroid profile includes TSH FT4 Lab Routine Lumbar spine pain Cramping of feet Cramp and spasm Diabetic peripheral neuropathy associated with type 2 diabetes mellitus ([facility]) Obesity with body mass index 30 or greater Sleep disturbance 1 Occurrences starting 09/25/2024 until 09/25/2025 [facility] Comment on above: 1 Occurrences starti ng 09/25/2024 until 09/25/2025 End: 09-25-2025 Vitamin D 25 hydroxy Vitamin D 25 hydroxy Lab Routine Lumbar spine pain Cramping of feet Cramp and spasm Diabetic peripheral neuropathy associated with type 2 diabetes mellitus ([facility]) Obesity with body mass index 30 or greater Sleep disturbance 1 Occurrences starting 09/25/2024 until 09/25/2025 [facility] Comment on above: 1 Occurrences starti ng 09/25/2024 until 09/25/2025 Immunizations Immunization Date Immunization Notes Care Provider Fa buck NEGATED: Highlighted row has not occurred!09-09-2021 influenza, injectable, quadrivalent, preservative free [employer]ite [employer] 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 2022 Self-pay [id number] 2022 Medicaid [facility] MEDIC AID [employer] HMO [id number] 2022-Present [phone] [address] [place] [address] [id number] 2022 Medicaid [facility]MO [facility] [id number] 1981 Unknown [id number] 2840.1.753681.3.579.2. 59 1981 Unknown [id number] 2840.1.289650.3.579.2. 59 1981 Unknown [id number] 2840.1.294044.3.579.2. 59 1981 Unknown [id number] 2.16840.1.399108.3.579.2. 593 1981 Unknown [id number] 2.16840.1.882272.3.579.2. 59 1981 Unknown [id number] 2.840.1.255295.3.579.2. 593 1981 Unknown [id number] 2.840.1.852085.3.579.2. 593 1981 Unknown [id number] 2.840.1.825126.3.579.2. 727 1981 Unknown [id number] 2.0.1.327017.3.579.2. 1285 1981 Unknown [id number] 2.0.1.086450.3.579.2. 1285 1981 Unknown [id number] 2..1.869364.3.579.2. 1285 1981 Unknown [id number] 20.1.390684.3.579.2. 1258 1981 Unknown [id number] .1.898029.3.579.2. 1258 1981 Unknown [id number] 2.1.317605.3.579.2. 1258 1981 Unknown [id number] .1.085391.3.579.2. 1258 1981 Unknown [id number] .1.188985.3.579.2. 1258 1981 Unknown [id number] 09.09.830.1.487428.3.579.2. 1258 1981 Unknown [id number] .1.958774.3.579.2. 1258 1981 Unknown [id number] 09.09.830.1.083079.3.579.2. 1258 1981 Unknown [id number] 2840.1.961685.3.579.2. 1258 1981 Unknown [id number] 2840.1.599643.3.579.2. 125 1981 Unknown [id number] 2.16.840.1.974600.3.579.2. 1259 1981 Unknown [id number] 2.16.840.1.919602.3.579.2. 1259 1981 Unknown [id number] 2.16.840.1.133260.3.579.2. 1259 1959 Medicaid [id number] 1959 Medicaid 1978 [id number] Unknown [id number] 2.16.840.1.340793.3.579.2. 531 Unknown [id number] 2.16.840.1.484881.3.579.2. 531 Social History Date Type Detail Facility Start: 01-31-2020 End: 04-23-2022 Tobacco smoking status Smoker (finding) [facility] Start: 05-07-2024 End: 09-25-2024 Sex Assigned At Male [facility] Start: 04-27-2022 Tobacco smoking status Heavy t obacco smoker (finding) [facility] Comment on above: Smoker Tobacco smoking status Never [facility] Comment on above: Smoker Start: 1980 Sex Assigned At Male [facility] Start: 02-14-2024 Tobacco smoking status Light t obacco smoker (finding) [facility] Tobacco smoking stat us WYIS Tobacco smoking consumption unknown [facility] Start: 1980 Sex assigned at Not on file [facility] Start: 09-27-2022 End: 05-07-2024 Tobacco smoking status NHIS Smokes tobacco daily [facility] History of tobacco use [facility]ig[facility] Start: 09-27-2022 End: 05-07-2024 Tobacco use and exposure Smokeless tobacco non-user [facility] Start: 05-07-2024 End: 12-28-2024 Alcoholic beverage intake Current drinker of alcohol (finding) [facility] Start: 05-07-2024 End: 09-25-2024 History of Social function [facility] Start: 2023 End: 09-25-2024 Alcoholic beverage intake Ex-drinker (finding) [facility] Start: 08-26-2021 Sex Male (finding) [facility] Medical Equipment Procedure Code Equipment Code Equipment Origin al Text Equipment Identifier Dates INGUINAL HERNIA REPAIR ADULT Nicky CHRISTINA MD 05/20/22 Non Biological Abdomen {[id number] [facility] Start: 05-20-2022 [id number] Start: 07-05-2023 1 Unit by miscellaneous route in the morning. [id number] Start: 07-05-2023 Monitor blood padilla gar daily [id number] Start: 07-05-2023 End: 2023 Functional Status Date Assessment Result Facility 02-14-2024 Functional Status N/A [facility] 05-13-2022 Functional Status No [facility] 04-27-2022 Functional Status N/A [facility] [place] 04-23-2022 Functional Status N/A [facility] Clinical Notes 04-23-2022 to 12-28-2024 Don Santos DPM [facility]AC[facility] - 12/28/2024 11:20 AM EDTMarc Nancy Santos DPM [facility]AC[facility] - 12/05/2024 9:40 AM EDTMarc D Crescencioce, DPClint [facility] - 11/20/2024 9:20 AM EDTMarc D Crescencioce, DPClint [facility] - 11/13/2024 9:30 AM EDT Note Date & Type Note Facility 12-28-2024 History of Present illness Narrative Images from the original note were not included. Patient: Brian Tse : 1980 PCP: [facility] Provider MD Salud SUBJECTIVE This is a 44 y.o. male that presents today The patient is here status post Pietro osteotomy hammertoe correction left 2nd and 3rd digit procedure. Postop week 8. They deny fevers, chills, nausea, vomiting, calf pain and shortness of breath. Pain level is being managed with ice elevation and pain medication. Allergies: Allergies Allergen Reactions Metformin Diarrhea Varenicline Other Reaction(s): Other: See Comments Very bad dreams Past Medical History: There is no problem list on file for this patient. Medications: Current Outpatient Medications: glyBURIDE (Diabeta) 5 MG tablet, TAKE 1 TABLET BY MOUTH EVERY MORNING AND AT NIGHT WITH MEALS, Disp: , Rfl: Review of systems: Constitutional: Denies fever, chills, nausea, vomiting GI: Denies abdominal pain, cramping, loose stool, gastric ulcers Musculoskeletal: Denies low back pain, knee pain, systemic arthritis Neurologic: Denies burning, tingling, transient paralysis OBJECTIVE Physical Examination: DERM: Positive hair growth to b/l feet with good skin turgor noted. Negative openings in skin The patient was dry scaly skin noted in a moccasin like distribution right foot no tinea pedis noted much VASC: DP /PT were palpable bilateral. Capillary refill time < 3 seconds Digits 1-5 bilateral NEURO: [place] Alisa 5.07 monofilament was intact B/L. Vibratory sensation was intact B/L Musculoskeletal: Muscle strength was +5 over 5 all intrinsic and extrinsic muscles tested. Negative Homans test noted Surgical site evaluation: The incision site is healing well without signs infection. Minimal swelling noted. Consistent with the patient's level of surgery consistent with time frame postoperatively. Sutures remain intact without signs of dehiscence. Three views were taken today AP/MO/LAT foot: No fractures or dislocations seen excellent position alignment left foot great toe in good position trabeculation noted across the osteotomy osteotomy appears to be healed ASSESSMENT 1. Hallux interphalangeus, acquired, left 2. Left foot pain 3. Hammer toe of left foot PLAN Patient was returned to regular shoe gear he is doing quite well educated him on the radiographic findings she will follow up with me p.r.n. ALEXIS Sawyer documented in this encounter [facility] 12-05-2024 History of Present illness Narrative Images from the original note were not included. Patient: Brian Tse : 1980 PCP: [facility] Provider MD Salud SUBJECTIVE This is a 44 y.o. male that presents today The patient is here status post Pietro osteotomy hammertoe correction left 2nd and 3rd digit procedure. Postop week 6. They deny fevers, chills, nausea, vomiting, calf pain and shortness of breath. Pain level is being managed with ice elevation and pain medication. Allergies: Allergies Allergen Reactions Metformin Diarrhea Varenicline Other Reaction(s): Other: See Comments Very bad dreams Past Medical History: There is no problem list on file for this patient. Medications: Current Outpatient Medications: glyBURIDE (Diabeta) 5 MG tablet, TAKE 1 TABLET BY MOUTH EVERY MORNING AND AT NIGHT WITH MEALS, Disp: , Rfl: ketoconazole (NIZOral) 2 % cream, Apply topically Daily Apply daily, Disp: 30 g, Rfl: 1 Review of systems: Constitutional: Denies fever, chills, nausea, vomiting GI: Denies abdominal pain, cramping, loose stool, gastric ulcers Musculoskeletal: Denies low back pain, knee pain, systemic arthritis Neurologic: Denies burning, tingling, transient paralysis OBJECTIVE Physical Examination: DERM: Positive hair growth to b/l feet with good skin turgor noted. Negative openings in skin The patient was dry scaly skin noted in a moccasin like distribution right foot no tinea pedis noted much VASC: DP /PT were palpable bilateral. Capillary refill time < 3 seconds Digits 1-5 bilateral NEURO: [place]isa 5.07 monofilament was intact B/L. Vibratory sensation was intact B/L Musculoskeletal: Muscle strength was +5 over 5 all intrinsic and extrinsic muscles tested. Negative Homans test noted Surgical site evaluation: The incision site is healing well without signs infection. Minimal swelling noted. Consistent with the patient's level of surgery consistent with time frame postoperatively. Sutures remain intact without signs of dehiscence. Three views were taken today AP/MO/LAT foot: No fractures or dislocations seen excellent position alignment left foot great toe in good position trabeculation noted across the osteotomy ASSESSMENT 1. Hallux interphalangeus, acquired, left 2. Left foot pain PLAN Educated the patient on the radiographic findings recommended he continue with pneumatic walking boot for 1 week for running to regular shoe gear in 2 weeks follow up with me in 3 weeks reexamination ALEXIS Sawyer documented in this encounter [facility] 11-20-2024 History of Present illness Narrative Images from the original note were not included. Patient: Brian Tse : 1980 PCP: [facility] Provider MD Salud SUBJECTIVE This is a 44 y.o. male that presents today The patient is here status post Pietro osteotomy hammertoe correction left 2nd and 3rd digit procedure. Postop week 4. They deny fevers, chills, nausea, vomiting, calf pain and shortness of breath. Pain level is being managed with ice elevation and pain medication. They have been relatively compliant with her postoperative care. K-wire was migrating slightly distally Allergies: Allergies Allergen Reactions Metformin Diarrhea Varenicline Other Reaction(s): Other: See Comments Very bad dreams Past Medical History: There is no problem list on file for this patient. Medications: Current Outpatient Medications: glyBURIDE (Diabeta) 5 MG tablet, TAKE 1 TABLET BY MOUTH EVERY MORNING AND AT NIGHT WITH MEALS, Disp: , Rfl: ketoconazole (NIZOral) 2 % cream, Apply topically Daily Apply daily, Disp: 30 g, Rfl: 1 Review of systems: Constitutional: Denies fever, chills, nausea, vomiting GI: Denies abdominal pain, cramping, loose stool, gastric ulcers Musculoskeletal: Denies low back pain, knee pain, systemic arthritis Neurologic: Denies burning, tingling, transient paralysis OBJECTIVE Physical Examination: DERM: Positive hair growth to b/l feet with good skin turgor noted. Negative openings in skin The patient was dry scaly skin noted in a moccasin like distribution right foot no tinea pedis noted much VASC: DP /PT were palpable bilateral. Capillary refill time < 3 seconds Digits 1-5 bilateral NEURO: [place]isa 5.07 monofilament was intact B/L. Vibratory sensation was intact B/L Musculoskeletal: Muscle strength was +5 over 5 all intrinsic and extrinsic muscles tested. Negative Homans test noted Surgical site evaluation: The incision site is healing well without signs infection. Minimal swelling noted. Consistent with the patient's level of surgery consistent with time frame postoperatively. Sutures remain intact without signs of dehiscence. Three views were taken today AP/MO/LAT foot: No fractures or dislocations seen excellent position alignment left foot great toe in good position K-wire is migrating slightly ASSESSMENT 1. Pain due to internal orthopedic prosthetic device, initial encounter ([facility]) 2. Hammer toe of left foot PLAN Today we applied a dry sterile dressing with betadine to the incision site. Educated the patient the radiographic findings. Today I removed the K-wire from the 2nd toe that has been migrating slightly distally. I applied a dry sterile dressing to the pin skin interface follow up with me in 2 weeks for reassessment. ALEXIS Sawyer documented in this encounter [facility] 11-13-2024 History of Present illness Narrative Images from the original note were not included. Patient: Brian Tse : 1980 PCP: [facility] Provider MD Salud SUBJECTIVE This is a 44 y.o. male that presents today The patient is here status post Pietro osteotomy hammertoe correction left 2nd and 3rd digit procedure. Postop week 2. They deny fevers, chills, nausea, vomiting, calf pain and shortness of breath. Pain level is being managed with ice elevation and pain medication. They have been relatively compliant with her postoperative care. Patient has a 2nd chief complaint of dry scaly skin in a moccasin like distribution on the right Tinea pedis has resolved Allergies: Allergies Allergen Reactions Metformin Diarrhea Varenicline Other Reaction(s): Other: See Comments Very bad dreams Past Medical History: There is no problem list on file for this patient. Medications: Current Outpatient Medications: glyBURIDE (Diabeta) 5 MG tablet, TAKE 1 TABLET BY MOUTH EVERY MORNING AND AT NIGHT WITH MEALS, Disp: , Rfl: ketoconazole (NIZOral) 2 % cream, Apply topically Daily Apply daily, Disp: 30 g, Rfl: 1 Review of systems: Constitutional: Denies fever, chills, nausea, vomiting GI: Denies abdominal pain, cramping, loose stool, gastric ulcers Musculoskeletal: Denies low back pain, knee pain, systemic arthritis Neurologic: Denies burning, tingling, transient paralysis OBJECTIVE Physical Examination: DERM: Positive hair growth to b/l feet with good skin turgor noted. Negative openings in skin The patient was dry scaly skin noted in a moccasin like distribution right foot no tinea pedis noted much VASC: DP /PT were palpable bilateral. Capillary refill time < 3 seconds Digits 1-5 bilateral NEURO: [place]isa 5.07 monofilament was intact B/L. Vibratory sensation was intact B/L Musculoskeletal: Muscle strength was +5 over 5 all intrinsic and extrinsic muscles tested. Negative Homans test noted Surgical site evaluation: The incision site is healing well without signs infection. Minimal swelling noted. Consistent with the patient's level of surgery consistent with time frame postoperatively. Sutures remain intact without signs of dehiscence. ASSESSMENT 1. Hallux interphalangeus, acquired, left 2. Hammer toe of left foot PLAN Today we applied a dry sterile dressing with betadine to the incision site. Covered the incision with 4x4s, Kerlix and Jaime bandage. The Patient is to continue ice and elevation on a regular basis. They were reminded to remain compliant with her weight-bearing status in the ambulatory surgical device. I dispensed to the patient a pneumatic walking boot today for ambulation. I also dispensed a prescription for topical antifungals to be utilized for his right foot sutures removed today educated the patient on the tinea pedis which has resolved he is to continue the topical antifungal Harris continue with a pneumatic walking boot ALEXIS Sawyer documented in this encounter [facility] 11-06-2024 History of Present illness Narrative Images from the original note were not included. Patient: Brian Tse : 1980 PCP: [facility] Provider MD Salud SUBJECTIVE This is a 44 y.o. male that presents today The patient is here status post Pietro osteotomy hammertoe correction left 2nd and 3rd digit procedure. Postop week 2. They deny fevers, chills, nausea, vomiting, calf pain and shortness of breath. Pain level is being managed with ice elevation and pain medication. They have been relatively compliant with her postoperative care. Patient has a 2nd chief complaint of dry scaly skin in a moccasin like distribution on the right Allergies: Allergies Allergen Reactions Metformin Diarrhea Varenicline Other Reaction(s): Other: See Comments Very bad dreams Past Medical History: There is no problem list on file for this patient. Medications: Current Outpatient Medications: glyBURIDE (Diabeta) 5 MG tablet, TAKE 1 TABLET BY MOUTH EVERY MORNING AND AT NIGHT WITH MEALS, Disp: , Rfl: ketoconazole (NIZOral) 2 % cream, Apply topically Daily Apply daily, Disp: 30 g, Rfl: 1 oxyCODONE-acetaminophen (Percocet) 5-325 MG tablet, Take 1 tablet by mouth every 6 (six) hours if needed for severe pain for up to 5 days TAKE 1 PILL P.O. Q.6H P.R.N. PAIN, Disp: 15 tablet, Rfl: 0 Review of systems: Constitutional: Denies fever, chills, nausea, vomiting GI: Denies abdominal pain, cramping, loose stool, gastric ulcers Musculoskeletal: Denies low back pain, knee pain, systemic arthritis Neurologic: Denies burning, tingling, transient paralysis OBJECTIVE Physical Examination: DERM: Positive hair growth to b/l feet with good skin turgor noted. Negative openings in skin The patient was dry scaly skin noted in a moccasin like distribution right foot VASC: DP /PT were palpable bilateral. Capillary refill time < 3 seconds Digits 1-5 bilateral NEURO: [place]isa 5.07 monofilament was intact B/L. Vibratory sensation was intact B/L Musculoskeletal: Muscle strength was +5 over 5 all intrinsic and extrinsic muscles tested. Negative Homans test noted Surgical site evaluation: The incision site is healing well without signs infection. Minimal swelling noted. Consistent with the patient's level of surgery consistent with time frame postoperatively. Sutures remain intact without signs of dehiscence. Radiographs: AP/MO/LAT: fixation intact excellent position alignment of the lesser digits. ASSESSMENT 1. Tinea pedis of right foot 2. Left foot pain 3. Hallux interphalangeus, acquired, left 4. Ankle contracture, right PLAN Today we applied a dry sterile dressing with betadine to the incision site. Covered the incision with 4x4s, Kerlix and Jaime bandage. The Patient is to continue ice and elevation on a regular basis. They were reminded to remain compliant with her weight-bearing status in the ambulatory surgical device. I dispensed to the patient a pneumatic walking boot today for ambulation. I also dispensed a prescription for topical antifungals to be utilized for his right foot Pneumatic Walking Boot ([id number]) was dispensed and applied at this visit. Due to the patient's diagnosis and related symptoms this is medically necessary for treatment. The function of this device is to restrict and limit motion, provide stabilization, immobilization, and compression to the affected area. The goals and function-of this device were explained in detail to the patient. The patient was shown and told in detail how to properly wear and care for the device. Written instructions and warranty information was given along with the list of the current Durable Medical Equipment Supplier Guidelines. ALEXIS Sawyer documented in this encounter [facility] 10-31-2024 Telephone encounter Note The prescription has been sent to the pharmacy. Thank you. [facility] 10-31-2024 Miscellaneous Notes The prescription has been sent to the pharmacy. Thank you. documented in this encounter [facility] 10-26-2024 History of Present illness Narrative Images from the original note were not included. Patient: Brian Tse : 1980 PCP: [facility] Provider MD Salud SUBJECTIVE This is a 44 y.o. male that presents today for a chief complaint of painful hammertoe 2nd and 3rd digit left foot has been hurting for some time has progressively worsened. He denies history of trauma to the area. Previous bunionectomy in excellent postoperative count come helped a small hallux interphalangeus deformity which difficult for him to her shoes perform activities of daily living. Patient was diabetic sugars have been running relatively under control last hemoglobin A1c was 6.2.. patient wishes to have surgical correction has significant limitation in activities of daily living secondary to the pain. Last hemoglobin A1c was 8 which had improved significantly. Allergies: Allergies Allergen Reactions Metformin Diarrhea Varenicline Other Reaction(s): Other: See Comments Very bad dreams Past Medical History: Past Medical History: Diagnosis Date Diabetes mellitus ([facility] [facility]) Medications: Current Outpatient Medications: glyBURIDE (Diabeta) 5 MG tablet, TAKE 1 TABLET BY MOUTH EVERY MORNING AND AT NIGHT WITH MEALS, Disp: , Rfl: ROS: Constitutional: Denies fever, chills, nausea, vomiting GI: Denies abdominal pain, cramping, loose stool, gastric ulcers Musculoskeletal: Denies low back pain, knee pain, systemic arthritis Neurologic: Denies burning, tingling, transient paralysis Clinisync Result Encounter on 10/23/2024 Component Date Value Ref Range Status [facility] WBC 10/23/2024 10.3 4.0 - 11.0 10 3/uL Final [facility] RBC 10/23/2024 5.17 4.70 - 6.10 10 6/uL Final [facility] HGB 10/23/2024 15.5 14.0 - 18.0 g/dL Final TBH HCT 10/23/2024 45.8 42.0 - 54.0 % Final [facility] MCV 10/23/2024 88.6 80.0 - 94.0 fL Final TBH MCH 10/23/2024 30.0 25.9 - 34.0 pg Final TBH MCHC 10/23/2024 33.8 29.9 - 35.2 g/dL Final TBH RDW 10/23/2024 13.8 11.0 - 15.0 % Final TBH PLT 10/23/2024 240 150 - 450 10 3/uL Final TBH MPV 10/23/2024 11.3 9.5 - 13.5 fL Final NEUTROPHILS PERCENT AUTO 10/23/2024 59.3 43.0 - 75.0 % Final LYMPHOCYTES PERCENT AUTO 10/23/2024 29.9 20.5 - 60.0 % Final MONOCYTES PERCENT AUTO 10/23/2024 7.3 1.7 - 12.0 % Final TBH EO % 10/23/2024 2.6 0.9 - 7.0 % Final BASOPHILS PERCENT AUTO 10/23/2024 0.6 0.2 - 2.0 % Final IMMATURE GRANULOCYTES PCT AUTO 10/23/2024 0.3 0.0 - 0.5 % Final NEUTROPHILS ABSOLUTE AUTO 10/23/2024 6.1 1.4 - 6.5 10 3/uL Final LYMPHOCYTES ABSOLUTE AUTO 10/23/2024 3.1 1.2 - 3.8 10 3/uL Final MONOCYTES ABSOLUTE AUTO 10/23/2024 0.8 0.3 - 0.8 10 3/uL Final TBH EO # 10/23/2024 0.3 0.0 - 0.7 10 3/uL Final BASOPHILS ABSOLUTE AUTO 10/23/2024 0.1 0.0 - 0.1 10 3/uL Final IMMATURE GRANULOCYTES ABS AUTO 10/23/2024 0.03 0.00 - 0.03 10 3/uL Final SODIUM 10/23/2024 142 136 - 145 mmol/L Final POTASSIUM 10/23/2024 4.1 3.5 - 5.1 mmol/L Final CHLORIDE 10/23/2024 105 98 - 107 mmol/L Final CARBON DIOXIDE 10/23/2024 24.3 21.0 - 32.0 mmol/L Final ANION GAP 10/23/2024 16.8 Final GLUCOSE 10/23/2024 200 (H) 74 - 106 mg/dL Final BLOOD UREA NITROGEN 10/23/2024 14.0 7.0 - 18.0 mg/dL Final CREATININE 10/23/2024 1.14 0.70 - 1.30 mg/dL Final TBH EGFR-AF EMIRATI 10/23/2024 >60 >=60 mL/min/1.73m 2 Final TBH EGFR-NON AF EMIRATI 10/23/2024 >60 >=60 mL/min/1.73m 2 Final BUN CREATININE RATIO 10/23/2024 12.3 Final CALCIUM 10/23/2024 8.8 8.5 - 10.1 mg/dL Final OBJECTIVE Physical examination: Vascular: Dorsalis pedis posterior tibial pulses are palpable bilateral, no edema noted Neuro: [place]-Alisa 5.07 monofilament intact, vibratory sensation intact Derm: All hair growth noted skin temperature is warm to cool knees to toes Musculoskeletal: Muscle strength +5/5 all intrinsic and extrinsic muscles tested Hallux interphalangeus deformity noted left great toe causing pressure at the 2nd digit hammertoe deformity 2nd PIPJ joint and 3rd PIPJ joint that are reducible in nature. Pain with range of motion of the IPJ of the left great toe Cardiac: no murmurs detected normal rate and rhythm Respiratory: Lungs appear to be clear XRAY: Three views were taken today AP/MO/LAT foot: No fractures or dislocations seen hallux interphalangeus deformity noted mild hammertoe deformity 2nd and 3rd digit left foot. ASSESSMENT 1. Type II diabetes mellitus with neurological manifestations (CMS/HCC) 2. Hallux interphalangeus, acquired, left 3. Hammer toe of left foot PLAN Educated the patient has clinical and radiographic findings. She was having significant pain has exhausted numerous conservative therapies including wider shoes pads anti-inflammatory medications to no avail wishes to have surgical intervention planned procedure would be hallux interphalangeus correction including an Pietro osteotomy with hammertoe correction with the 2nd and 3rd digit of the left foot. The patient was educated on the pre, britany, postoperative course of the procedure in great detail. We discussed further conservative therapies which the patient has attempted and has failed. I discussed the surgical procedure in great detail including the risks and possible complications. We discussed the following complications in great detail including but not limited to: Pain, infection, prolonged swelling, numbness, tingling, burning, nonhealing wound, nonunion, malunion, chronic pain, development of complex regional pain syndrome, development of deep venous thrombosis. Patient fully understood all possible risks and complications. All questions have been asked and answered. They have consented for the above-stated procedure. Patient has been cleared for MAC for popliteal block anesthesia he has had significant improvement in his hemoglobin A1c. ALEXIS Sawyer documented in this encounter [facility] 10-01-2024 Miscellaneous Notes 1. IS THIS DUE TO AN ACCIDENT? -No 2. IS THIS WORKER'S COMP? PLEASE VERIFY IF THIS IS WORKERS COMP AND DOCUMENT (We do not accept any new workers comp cases) -No 3. WHAT INSURANCE? -[employer]/[facility] Medicaid Hmo 4. HAVE YOU EVER BEEN SEEN BY A NEUROLOGIST BEFORE? IF YES, WHO AND WHEN? IS THIS A SECOND OPINION? -No 5. ANY CHANCE OF NOW OR BEFORE YOUR APPOINTMENT? -N/a 6. OFFERED JANNA FOR SOONER APPOINTMENT? -Soonest appointment 7. PATIENT IS SCHEDULED ON/WITH: -11/16/24 2:30 Dr. Jaimes 8. WHO CALLED TO SCHEDULE APPOINTMENT? -[facility] Telephone encounter Note 1. IS THIS [...] 8. WHO CALLED TO SCHEDULE APPOINTMENT? -[facility] 10-01-2024 Miscellaneous Notes ----- Message from STEPHEN [...] understanding with patient. documented in this encounter [facility] 10-01-2024 Telephone encounter Note ----- Message from [...] 09/25/2024 7:11 PM EST To: [facility] Telephone encounter Note Called and informed patient of results, mailed B12 slip to patient as he does not want to do injections. Neuro referral has been sent and he will be reaching out to them. Verbalized understanding with patient. [facility] 09-25-2024 History of Present illness Narrative Venipuncture performed in the right arm. Patient had no adverse reactions. Subjective CC: ED follow up for back pain Patient ID: Brian Tse is a 43 y.o. male. GEGE Torres presents for ED follow up for back pain. He presented to [facility] on 09/07/2024 for back/flank pain. He had complained of right flank pain, and has a history of kidney stones. He had a CT scan of the abdomen and pelvis for kidney stones and this was negative for stones. He was given IV Toradol, Zofran and IV fluids. He was given a dose of Norflex and [place], prior to discharge. He was diagnosed with a muscle strain. He relates severe symptoms have resolved, although does have on-going right flank pain. He takes Tylenol and ibuprofen, but only obtains mild relief. He is in the process of graduating from [employer], and states had been running quit a [...] also quit all of his diabetic medications. States doesn't want to take the medications. The [...] Nose: Nose normal. No rhinorrhea. Mouth/Throat: Lips: [place]. Mouth: Mucous membranes are moist. Pharynx: Oropharynx [...] neuropathy associated with type 2 diabetes mellitus ([facility]) - CBC auto differential; Future - Comprehensive [...] Martin 09/25/24 1515 documented in this encounter [facility] 05-07-2024 History of Present illness Narrative Images from the original note were not included. Patient: Brian Tse : 1980 PCP: Lorna Brannon MD SUBJECTIVE This is a 43 [...] Past Medical History: Diagnosis Date Diabetes mellitus ([facility]) Medications: Current Outpatient Medications: glyBURIDE (Diabeta) 5 [...] < 3 seconds Digits 1-5 bilateral NEURO: [place] Alisa 5.07 monofilament was intact B/L. Vibratory sensation was intact B/L Musculoskeletal: Muscle strength was +5 over 5 all intrinsic and extrinsic muscles tested. ASSESSMENT 1. Abscess of toe, right 2. Contusion of right foot, initial encounter 3. Right foot pain 4. Type II diabetes mellitus with neurological manifestations ([facility]) PLAN I educated the patient the contusion [...] ulcerations. ALEXIS Sawyer documented in this encounter [facility] 02-14-2024 Hospital Discharge instructions Patient Education 02/14/2024 [...] by your health care provider. Follow the coat repair inspector's instructions for use. Tighten and properly adjust [...] provider. Document Revised: 05/04/2021 Document Reviewed: 05/04/2021 [employer] Patient Education 2022 [employer]. 02/14/2024 17:04:58 Foot Sprain Foot Sprain A [...] cast on your foot. General instructions Take cnvg-nea-ubabtup and prescription medicines only as told by [...] provider. Document Revised: 10/31/2020 Document Reviewed: 10/31/2020 [employer] Patient Education 2022 [employer]. Follow Up Care 02/14/2024 15:59:39 With:SALBADOR BOOKER Address: [address] [place] [id number] Business (1) When:02/17/2024 16:55:32 Comments:Return to the emergency room if your pain gets worse or any new symptoms. [facility] 02-14-2024 Note ED Patient Education Note Orthopedics [...] your health care provider. ? Follow the coat repair inspector's instructions for use. ? Tighten and properly [...] provider. Document Revised: 05/04/2021 Document Reviewed: 05/04/2021 [employer] Patient Education ? 2022 [employer]. Foot Sprain A foot sprain is an [...] content not included)... [facility] 02-14-2024 Evaluation + Plan note Extrac ekaterina from: Title:ED Note Author:Reddy Thao M.D. te:02/14/24 1. Sprain of left foot (S93. 602A: Unspecified sprain of left foot, initial encounter) Orders: ibuprofen, 600 mg = 1 tab(s), Tab, Oral, Once, Stop date 02/14/24 16:22:00 EDT, STAT, Start date 02/14/24 16:22:00 EDT, 02/14/24 16:22:00 EDT Post-op Shoe XR Foot 3+ Views Left [facility]04-29-2024 Miscellaneous Notes* Telephone Encounter - India Graf CMA - 11/21/2023 11:18 AM EDT Pharmacy requesting refill for 90 days please [facility] encounter Note* Telephone Encounter - India Graf CMA - 11/21/2023 11:18 AM EDT Pharmacy requesting refill for 90 days please [facility]04-04-2024 History of Present illness Narrative* Compa Waite, SUPPLY CHAIN GENERALIST-AIR BRAKE OPERATOR - 2023 11:45 AM EDT Subjective Patient ID: Brian Tse is a 42 y.o. male. GEGE Torres presents to the office for physical exam as he is in the [employer] at [employer]. He will finish at the end of [...] negative. Brian can be cleared for the [employer] without restrictions. Physical form completed. Refills [...] complication, without long-term current use of insulin ([facility]) - blood sugar diagnostic (glucose blood) strip; [...] STEPHEN Ochoa 10/27/23 1548 [facility] note* Encounter Date Diagnosis Assessment [...] worsening. Patient verbalized understanding of treatment plan. [email or web address] Other 04-13-2023 Hospital Discharge instructions Follow Up Care 11/04/2022 10:27:15 With:Patrick OWEN MD, URL Address: [facility] [address] [place] [phone] When: Unknown [facility] Discharge instructions Patient Education 05/20/2022 14:32:40 Post Op Patient Instructions - FT (CUSTOM) Follow Up Care 04/27/2022 09:44:58 With:Nicky CHRISTINA Address: [facility] [address], [address] [facility] [address] [place] [address]- Business (1) When:7 to 10 days [facility]09-30-2022 Hospital Discharge instructions Patient Education 04/23/2022 12:05:06 Kidney Stones, Faxg-qb-Kysg Kidney Stones Kidney stones are rock-like masses [...] Follow these instructions at home: Medicines Take vnpx-fsz-aonlgqk and prescription medicines only as told by [...] 12/27/2008 Document Revised: 11/27/2019 Document Reviewed: 11/27/2019 [employer] Patient Education 2019 [employer]. Follow Up Care 04/22/2022 09:22:48 With:Patrick OWEN MD, URL Address: [address] [place], [place] [id number]- When: Unknown [facility] evaluation + Plan note Future Appointments Appointment Date:04/27/2022 09:00:00 AM Scheduled Provider:Nicky CHRISTINA MD Location:[facility] Appointment Type:[facility] Appointment Date:10/22/2022 08:45:00 AM Scheduled Provider:Patrick OWEN MD Location:[facility] Appointment Type:URO Office Visit Diagnostic Tests Pending * Calculi Analysis Urinary 04/23/22 [facility] evaluation + Plan note Future Appointments Appointment Date:05/13/2022 12:30:00 PM Scheduled Provider: Location:[facility] Appointment Type:Surgical PAT FT Appointment Date:05/13/2022 01:30:00 PM Scheduled Provider: Location:[facility] Appointment Type:Surgery PAT COVID Testing Appointment Date:05/20/2022 11:30:00 AM Scheduled Provider: Location:[facility] Appointment Type:Surgery FT Appointment Date:10/22/2022 08:45:00 AM Scheduled Provider:Patrick OWEN MD Location:[facility] Appointment Type:URO Office Visit [facility] General [facility] [place] Evaluation + Plan note Future Appointments Appointment Date:05/20/2022 11:30:00 AM Scheduled Provider: Location:[facility] Appointment Type:Surgery FT Appointment Date:10/22/2022 08:45:00 AM Scheduled Provider:Patrick OWEN MD Location:[facility] [place] Appointment Type:URO [facility] Future Appointments Appointment Date:10/22/2022 08:45:00 AM Scheduled Provider:Patrick OWEN MD Location:[facility] [place] Appointment Type:URO [facility] Future Appointments Appointment Date:06/22/2022 02:40:00 PM Scheduled Provider:Nicky CHRISTINA MD Location: [place] Appointment Type: Post Op 15 Appointment Date:10/22/2022 08:45:00 AM Scheduled Provider:Patrick OWEN MD Location:[facility] [place] Appointment Type:URO Office Visit General Surgery [place] Evaluohind noteNo assessment information [facility] Work Phone: Evalutxzdi noteNo InformationNoLifecare [facility] [employer] Other Evaluation note* Diagnosis Type II diabetes mellitus with neurological manifestations (CMS/HCC)- Primary Type II or unspecified type diabetes mellitus with neurological manifestations, not stated as uncontrolled Abscess of toe, right Contusion of right foot, initial encounter Right foot pain Pain in soft tissues of limb documented in this encounter [facility] Healthcare[facility]* Diagnosis Type 2 diabetes mellitus without complication, without long-term current use of insulin ([facility]) documented in this encounter [facility]* Diagnosis Encounter for occupational physical examination- Primary Type 2 diabetes mellitus without complication, without long-term current use of insulin ([facility]) Anxiety Anxiety state, unspecified Sleep disturbance Unspecified sleep disturbance [facility]* Diagnosis Cramp and spasm- Primary Lumbar spine pain Cramping of feet Cramp of limb Diabetic peripheral neuropathy associated with type 2 diabetes mellitus ([facility]) Obesity with body mass index 30 or greater Sleep disturbance Unspecified sleep disturbance [facility]* Diagnosis Vitamin B12 deficiency- Primary Other B-complex deficiencies Low serum vitamin D Elevated triglycerides with high cholesterol Mixed hyperlipidemia Dysesthesia affecting both sides of body documented in this [facility]* Diagnosis Type II diabetes mellitus with neurological manifestations ([facility])- Primary Type II or unspecified type diabetes mellitus with neurological manifestations, not stated as uncontrolled Hallux interphalangeus, acquired, left Hammer toe of left foot documented in this encounter [facility] HealthcareEvaluation note* Diagnosis Hallux interphalangeus, acquired, left- Primary documented in this encounter [facility]* Diagnosis Tinea pedis of right foot- Primary Left foot pain Pain in soft tissues of limb Hallux interphalangeus, acquired, left Ankle contracture, right documented in this encounter [facility] HealthcareEvaluation note* Diagnosis Tinea pedis of right foot- Primary Hallux interphalangeus, acquired, left Hammer toe of left foot documented in this encounter [facility]* Diagnosis Hammer toe of left foot- Primary Pain due to internal orthopedic prosthetic device, initial encounter ([facility] documented in this encounter [facility]* Diagnosis Hallux interphalangeus, acquired, left- Primary Left foot pain Pain in soft tissues of limb documented in this encounter [facility]* Diagnosis Hallux interphalangeus, acquired, left- Primary Left foot pain Pain in soft tissues of limb Hammer toe of left foot documented in this encounter [facility] HealthcareHistory general Narrative - Reported* Type Description Date Medical History Diabetes Medical History Renal calculi Medical History Hematochezia Surgical History CHOLECYSTECTOMY Surgical History HEMORRHOIDECTOMY Surgical History Foot Surgery Surgical History bunionectomy [email or web address] Other Hospital course Narrative No data available for this section [facility] Hospital Discharge instructions No data available for this section [facility] General Surgery [place] InstructionsNot on filedocumented in this encounter [facility]ructionsNot on filedocumented in this encounter [facility] SystemInstructionsNot on filedocumented in this encounter [facility] SystemInstructionsNot on filedocumented in this encounter [facility]* Attachments The following attachments cannot be sent through Care Everywhere. * Diabetes Exchange Diet (Haitian) documented in this encounterProMedica Health SystemInstructionsNot on file documented in this encounterProMedica Health SystemInstructionsNot on file documented in this encounterProMedica Health SystemInstructionsNot on file documented in this encounterProMedica Health SystemInstructionsNot on file documented in this encounterProMedica Health SystemProgress note No data available for this section [facility] Summary Purpose Family History Relationship Condition [...] Diagnosis: Phimosis, N47.1 Surgeon: Nicky Garay Resident/Fellow/Other Cane Stripper: Radha Madrigal Procedure: 1. CIRCUMCISION Anesthesia: No [...] section and content) DATE CREATED AUTHOR 01/12/2018 [facility] DATE CREATED AUTHOR AUTHOR'S ORGANIZ ATION 09/16/2020 [facility] DATE CREATED AUTHOR AUTHOR'S ORGANIZ ATION 11/04/2020 [facility] ical Center DATE CREATED AUTHOR AUTHOR'S ORGANIZ ATION 11/04/2020 [facility] DATE CREATED AUTHOR AUTHOR'S ORGANIZ ATION 12/04/2022 [facility] DATE CREATED AUTHOR AUTHOR'S ORGANIZ ATION 12/06/2022 [facility] DATE CREATED AUTHOR AUTHOR'S ORGANIZ ATION 05/26/2024 [facility] DATE CREATED AUTHOR AUTHOR'S ORGANIZ ATION 09/27/2024 [facility] DATE CREATED AUTHOR AUTHOR'S ORGANIZ ATION 09/27/2024 [facility] DATE CREATED AUTHOR AUTHOR'S ORGANIZ ATION 01/02/2025 [facility] dical Specialists [facility] Care Team (unrecognized sect ion and content) Team Status: Active Member Role Status Dates Jude Ruvalcaba III , DO Primary Care Provider Active Team Status: Inactive Member Role Status Dates Jude Ruvalcaba III , DO Primary Care Provider Active Domonique Myers APRN Attending Provider Active Steward Dishwasher Relationship Specialty Start Date End Date Unallocated, Lorna Wilkins MD [address] [place] [address] PCP - General Family Medicine 05/04/24 Steward Dishwasher Relationship Specialty Start Date End Date Unallocated, Lorna Wilkins MD [address] [place] [address] PCP - General Family Medicine 05/04/24 Steward Dishwasher Relationship Specialty Start Date End Date Compa Waite APRN-CNP PCP - General Nurse Practitioner 07/04/23 Steward Dishwasher Relationship Specialty Start Date End Date Compa Waite APRN-CNP PCP - General Nurse Practitioner 07/04/23 Steward Dishwasher Relationship Specialty Start Date End Date WaiteKarina graciaCompa, SUPPLY CHAIN GENERALIST[facility] PCP - General Nurse Practitioner 07/04/23 Steward Dishwasher Relationship Specialty Start Date End Date WaiteKarina houghndraLASHONN[facility] PCP - General Nurse Practitioner 07/04/23 Steward Dishwasher Relationship Specialty Start Date End Date WaiteKarina houghndraLASHONNDANA-[facility] PCP - General Nurse Practitioner 07/04/23 Steward Dishwasher Relationship Specialty Start Date End Date WaiteKarina graciaCompa SUPPLY CHAIN GENERALIST[facility] PCP - General Nurse Practitioner 07/04/23 Steward Dishwasher Relationship Specialty Start Date End Date WaiteKarinaCompa, SUPPLY CHAIN GENERALISTDA[facility] PCP - General Nurse Practitioner 07/04/23 Steward Dishwasher Relationship Specialty Start Date End Date RavindarKarinaCompa SUPPLY CHAIN [facility] PCP - General Nurse Practitioner 07/04/23 Steward Dishwasher Relationship Specialty Start Date End Date Unallocated, Lorna Wilkins MD [address] [place] [address] PCP - General Family Medicine 05/04/24 Steward Dishwasher Relationship Specialty Start Date End Date Unallocated, Lorna Wilkins MD [address] [place] [address] PCP - General Family Medicine 05/04/24 Steward Dishwasher Relationship Specialty Start Date End Date Unallocated, MD Jc Cunningham[address] [place] [address] PCP - General Family Medicine 05/04/24 Steward Dishwasher Relationship Specialty Start Date End Date Unallocated, Lorna Wilkins MD [facility] [address] [place] [address] PCP - General Family Medicine 05/04/24 Steward Dishwasher Relationship Specialty Start Date End Date Unallocated, Lorna Wilkins MD [facility] [address] [place] [address] PCP - General Family Medicine 05/04/24 Steward Dishwasher Relationship Specialty Start Date End Date Unallocated, Lorna Wilkins MD [facility] [address] [place] [address] PCP - General Family Medicine 05/04/24 Steward Dishwasher Relationship Specialty Start Date End Date Unallocated, Lorna Wilkins MD [facility] [place] [place] [address] PCP - General Family Medicine 05/04/24 Steward Dishwasher Relationship Specialty Start Date End Date Unallocated, Lorna Wilkins MD [facility] [address] [place] [address] PCP - General Family Medicine 05/04/24 Steward Dishwasher Relationship Specialty Start Date End Date Compa Waite 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 Practitioner 07/04/23 Goals (unrecognized section and content) Goals may be documented in a n alternate section REASON FOR VISIT (unrecogniz ed section and content) Reason Comments Ingrown Toenail RT grt nail injury Reason Comments Med Refill Reason Comments Annual Exam Reason Comments Er Follow-up Reason Onset Date Comments New Patient 10/01/2024 Reason Comments Consent Or Instructions Surgery consult Reason Comments Foot/ankle Post-op WK 1 post op Reason Comments Foot/ankle Post-op WK 2 post op Reason Comments Foot/ankle Post-op WK 3 post op - Pin r emoval Reason Comments Foot/ankle Post-op Wk 5 post op Reason Comments Foot/ankle Post-op Wk 8 post op FOR RECORDS PERTAINING TO PATIENTS WHO ARE [...] BE BASED ON THE PRIMARY CLINICAL RECORDS. [facility]. provides no warranty or guarantee of the accuracy or completeness of information in this document.
[2025-02-06 22:55] VITALS: BP 150/87; PULSE 80; TEMP 36.4; O2SAT 100; BMI 31.6
--- NOTE | 2025-02-06 23:10 | ED.ABDPAIN1 ---
HPI - Abdominal Pain General Chief Complaint: Abdominal Pain Stated Complaint: ABDOMINAL, BLOOD IN URINE Time Seen by Provider: 02/06/25 23:02 Source: patient Mode of arrival: walk-in Limitations: no limitations History of Present Illness HPI narrative: past history of kidney stones. Presents with suprapubic pain and pain radiating to right testicle. hematuria tonight also. No fever or vomiting Related Data Home Medications ?Medication ?Instructions ?Recorded ?Confirmed glipizide 5 mg tablet 5 mg PO QDAY 02/06/25 02/06/25 Allergies Allergy/AdvReac Type Severity Reaction Status Date / Time No Known Drug Allergies Allergy Verified 02/06/25 23:02 Review of Systems ROS Status of ROS 10 or more systems reviewed and unremarkable except as noted in history and below [facility] Medical History (Updated 02/07/25 @ 00:48 by Charlie Weber MD) FH: cholecystectomy ?Z83.79 - Family history of other diseases of the digestive system (ICD-10) Diabetes ?E11.9 - Type 2 diabetes mellitus without complications (ICD-10) Social History Smoking status: Current every day smoker Little interest or pleasure in doing things: not at all Feeling down, depressed, or hopeless: not at all Exam Constitutional Vital Signs, click to edit/add: Last Vital Signs Temp 97.6 F 02/06/25 22:55 Pulse 80 02/06/25 22:55 Resp 18 02/06/25 22:55 BP 150/87 H 02/06/25 22:55 Pulse Ox 100 02/06/25 22:55 O2 Del Method Room Air 02/06/25 22:55 Common normals: no apparent distress, average body habitus, oriented x3, no limitations, healthy appearing, alert and well nourished [facility] Common normals: normocephalic and head/scalp atraumatic Eye Common normals: PERRL and EOMs intact bilaterally Respiratory Common normals: normal respiratory effort, no retractions, no use of accessory muscles and clear to auscultation bilaterally Cardio Common normals: regular rate, regular rhythm, S1 normal heart sound and S2 normal heart sound GI Common normals: Normal to inspection, nondistended, normoactive bowel sounds present, soft to palpation and non-tender Back & Pelvis Common normals: no CVA tenderness Extremity Common normals: normal to inspection and full ROM Neuro Common normals: oriented x3, CN's II-XII intact bilaterally, moves all extremities and no focal motor deficits Psych Appearance: grossly normal Course Vital Signs Vital signs: Vital Signs Temperature 97.6 F 02/06/25 22:55 Pulse Rate 80 02/06/25 22:55 Respiratory Rate 18 02/06/25 22:55 Blood Pressure 150/87 H 02/06/25 22:55 Pulse Oximetry 100 02/06/25 22:55 Oxygen Delivery Method Room Air 02/06/25 22:55 Temperature 97.6 F 02/06/25 22:55 Pulse Rate 80 02/06/25 22:55 Respiratory Rate 18 02/06/25 22:55 Blood Pressure 150/87 H 02/06/25 22:55 Pulse Oximetry 100 02/06/25 22:55 Oxygen Delivery Method Room Air 02/06/25 22:55 MDM - Abdominal Pain MDM Narrative Medical decision making narrative: presents with suprapubic pain. Past history of kidney stones .Hematuria at home . No fever . CT with 1-2mm stone at left UVJ. Patient informed of the above. UA without findings of infection. Patient hydrated and discharged home with Toradol Lab Data Labs: Lab Results 02/06/25 02/07/25 Range/Units 23:23 00:10 WBC 11.2 H (4.0-11.0) 10^3/uL RBC 5.09 (4.70-6.10) 10^6/uL Hgb 15.6 (14.0-18.0) g/dL Hct 46.2 (42.0-54.0) % MCV 90.8 (80.0-94.0) fL MCH 30.6 (25.9-34.0) pg MCHC 33.8 (29.9-35.2) g/dL RDW 14.4 (11.0-15.0) % Plt Count 256 (150-450) 10^3/uL MPV 10.4 (9.5-13.5) fL Neut % (Auto) 61.8 (43.0-75.0) % Lymph % (Auto) 29.3 (20.5-60.0) % [place] % (Auto) 5.6 (1.7-12.0) % Eos % (Auto) 2.2 (0.9-7.0) % Baso % (Auto) 0.7 (0.2-2.0) % Neut # (Auto) 6.9 H (1.4-6.5) 10^3/uL Lymph # (Auto) 3.3 (1.2-3.8) 10^3/uL [place] # (Auto) 0.6 (0.3-0.8) 10^3/uL Eos # (Auto) 0.3 (0.0-0.7) 10^3/uL Baso # (Auto) 0.1 (0.0-0.1) 10^3/uL Abs Immat Gran (auto) 0.04 H (0.00-0.03) 10^3/uL Imm/Tot Granulo (auto) 0.4 (0.0-0.5) % Sodium 140 (136-145) mmol/L Potassium 3.5 (3.5-5.1) mmol/L Chloride 103 (98-107) mmol/L Carbon Dioxide 29.0 (21.0-32.0) mmol/L Anion Gap 11.5 BUN 10.0 (7.0-18.0) mg/dL Creatinine 1.23 (0.70-1.30) mg/dL Est GFR ( Amer) >60 (>=60 mL/min/1.73m^2) Est GFR (Non-Af Amer) >60 (>=60 mL/min/1.73m^2) BUN/Creatinine Ratio 8.1 Glucose 177 H (74-106) mg/dL Calcium 9.2 (8.5-10.1) mg/dL Urine Color Brown A (YELLOW) Urine Clarity Clear (CLEAR) Urine pH 6.0 (5.0-9.0) Ur Specific [place] >=1.030 A (1.005-1.025) Urine Protein 30 A (NEG/TRACE) mg/dL Urine Glucose (UA) Negative (NEGATIVE) mg/dL Urine Ketones 15 A (NEGATIVE) mg/dL Urine Occult Blood Large A (NEGATIVE) Urine Nitrite Negative (NEGATIVE) Urine Bilirubin Small A (NEGATIVE) Urine Urobilinogen 1.0 (0.2-1.0) EU/dL Ur Leukocyte Esterase Negative (NEGATIVE) Urine RBC 20-50 A (0-2) #/HPF Urine WBC 0-2 A (NONE SEEN) #/HPF Ur Squamous Epith Cells Rare (NONE/RARE) #/LPF Ur Transition Epith Cell Rare A (NONE SEEN) #/LPF Urine Crystals Seen A (None Seen) #/HPF Calcium Oxalate Crystal Rare Urine Bacteria None seen (NONE SEEN) #/HPF Urine Casts None seen (NONE SEEN) #/LPF Urine Mucus Small A (NONE SEEN) Ur Culture Indicated? No Discharge Plan Discharge Chief Complaint: Abdominal Pain Clinical Impression: Renal colic on left side Patient Disposition: Home, Self-Care Prescriptions / Home Meds: No Action glipizide 5 mg tablet 5 mg PO QDAY Print Language: Dominican Instructions: Renal Colic (ED) Additional Instructions: drink plenty of fluids and follow up with your doctor within one week for recheck Referrals: Yuko Waite NP [Primary Care Provider] - 1 week
--- NOTE | 2025-02-06 23:12 | CT_ITS ---
[address] [address] Patient Name: YESENIA TSE MRN: [id number] date: 1980 Sex: M Assigned Patient Location: ER Current Patient Location: ER Accession/Order Number: [id number] Exam Date: 02/06/2025 23:48 Report Date: 02/06/2025 23:51 At the request of: THIAGO CHENEY MD Procedure: CT abdomen pelvis wo con CT abdomen pelvis wo con 02/06/2025 11:34 PM SIGNS AND SYMPTOMS: Hematuria, groin pain radiating into scrotum, history of left-sided inguinal hernia TECHNIQUE: Multidetector ct axial images of the abdomen and pelvis were obtained without IV contrast. Multiplanar reformats were performed and reviewed to further define anatomy and possible pathology. CT was performed with one or more of the following dose reduction techniques: Automated exposure control, adjustment of the mA and/or kV according to patient size, or use of iterative reconstruction technique. COMPARISON: 09/07/2024 FINDINGS: Lower Chest: Within normal limits. ABDOMEN: Liver: Within normal limits. Bile Ducts: Normal caliber. Gallbladder: Previously removed Pancreas: Within normal limits. Spleen: Within normal limits. Adrenals: Within normal limits. Kidneys: Within normal limits. Pelvis: Reproductive Organs: No pelvic masses. Ureters: There is a 1 to 2 mm stone at the left ureterovesical junction. Bladder: Within normal limits. Bowel: Normal caliber. There is a normal appendix in the right lower quadrant. Mesenteric Lymph Nodes: No enlarged mesenteric lymph nodes. Peritoneum: No ascites or free air, no fluid collection. Vessels: Atherosclerotic changes are noted in the abdominal aorta. Retroperitoneum: Within normal limits. Abdominal Wall: Within normal limits. Bones: Within normal limits. CT/CT abdomen pelvis wo con IMPRESSION: There is a 1 to 2 mm stone at the left ureterovesical junction. No hydronephrosis. No renal stones. No bowel obstruction. Impression dictated by: Imtiaz Whelan M.D. 02/06/2025 11:51 PM Dictation Location: [place] [address] Electronically authenticated by: [id number] Y Date: 02/06/2025 23:51
[2025-02-06 23:34] LABS: Hematocrit 46.2 % (42.0-54.0); Hemoglobin 15.6 g/dL (14.0-18.0); Immature Granulocytes Abs Auto 0.04 10^3/uL (0.00-0.03); Immature Granulocytes Pct Auto 0.4 % (0.0-0.5); Lymphocytes Absolute Auto 3.3 10^3/uL (1.2-3.8); Mean Corpuscular HGB Conc 33.8 g/dL (29.9-35.2); Mean Corpuscular Hemoglobin 30.6 pg (25.9-34.0); Mean Corpuscular Volume 90.8 fL (80.0-94.0); Platelet Count 256 10^3/uL (150-450); Red Blood Count 5.09 10^6/uL (4.70-6.10); White Blood Count 11.2 10^3/uL (4.0-11.0)
[2025-02-06 23:49] LABS: Anion Gap 11.5; Blood Urea Nitrogen 10.0 mg/dL (7.0-18.0); Calcium 9.2 mg/dL (8.5-10.1); Carbon Dioxide 29.0 mmol/L (21.0-32.0); Chloride 103 mmol/L (98-107); Estimated GFR (African America >60 (>=60 mL/min/1.73m^2); Estimated GFR (Non-African Ame >60 (>=60 mL/min/1.73m^2); Glucose 177 mg/dL (74-106); Potassium 3.5 mmol/L (3.5-5.1); Sodium 140 mmol/L (136-145)
[2025-02-07] MEDS: 0.9 % SODIUM CHLORIDE 1,000 ML 999 ML IV (00:08)
[2025-02-07 00:17] LABS: Glucose Urine UA NEGATIVE (NEGATIVE)
[2025-02-07 00:27] LABS: Cast Seen? NONE SEEN #/LPF (NONE SEEN); Crystals Seen? Seen #/HPF (None Seen); Urine Culture Indicated NO
[2025-02-07] MEDS: KETOROLAC TROMETHAMINE 30 MG/ML VIAL IVP (00:40)
[2025-02-07] MEDS: HYDROCODONE/ACET 5-325 MG TABLET 2 TAB PO (01:10)
== END 2025-02-07 01:24 | disposition home or self-care (01) ==
PROVIDERS: Emergency Provider Internal Medicine; PCP Nurse Practitioner Family
DX: N23 Unspecified renal colic (principal); Z87.442 Personal history of urinary calculi; F17.200 Nicotine dependence, unspecified, uncomplicated; Z90.49 Acquired absence of other specified parts of digestive tract
CPT/HCPCS: 36415; 74176; 80048; 81001; 85025; 96374; 99285; J1885

== ENCOUNTER 2025-05-01 07:57 | Outpatient (OUT) | payer OTHER, SELFPAY ==
--- OUTSIDE RECORDS SUMMARY | 2025-05-01 08:02 | XMS_ITS | CCD ---
Author Organization [facility] Care Team Providers Care Bookie Name Role Phone NAHOMY SHARP (MAZIN) Unavailable Unavailable Jude Ruvalcaba III Primary Care Physician SALBADOR HERNANDEZ Primary Care Physician [phone] DO Jude Ruvalcaba III Primary Care Provider ALMA DELIA Myers Attending Provider [phone] Asaad, Imad Unavailable HERRERA ., UMM Admitting Unavailable HERRERA ., UMM Attending Unavailable [facility], SALBADOR Primary Care Unavailable JANIA, DR JUANITA Guidry Consulting Unavailable EL ., DONAVAN Consulting Unavailable [facility], [place]BAD[place] Primary Care Unavailable DAYA WHARTON Admitting Unavailable DAYA WHARTON Attending Unavailable JANIA, DR JUANITA Guidry Consulting Unavailable DAYA WHARTON Consulting Unavailable BRAYDEN ., DR NGUYEN Admitting Unavailable OWEN ., DR NGUYEN Attending Unavailable [facility], [place] Primary Care Unavailable OWEN ., DR NGUYEN Admitting Unavailable OWEN ., DR NGUYEN Attending Unavailable [facility], [place] Primary Care Unavailable OWEN ., DR [...] Attending Unavailable Salbador Hernandez Primary Care Unavailable Domoniqeu Myers Admitting Unavailable Domonique Myers Attending Unavailable Jordon III, Jdue R Primary Care Unavailabl Georgia Stevens Unavailable SALBADOR HERNANDEZ Primary Care Physician SALBADOR HERNANDEZ Primary Care Physician Unallocated , Flavios Provider Primary Care [facility] devora Waite PRODUCTION 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 WORKER-[facility], Compa Primary Care Provider [place] Attending Unavailable WAITE, COMPA Referring Unavailable WAITE, COMPA Primary Care Unavailable JUANITA DYE Attending Unavailable WAITE, COMPA Referring Unavailable WAITE, COMPA Primary Care Unavailable JUANITA DYE Referring Unavailable WAITE, COMPA Primary Care Unavailable DOLCE, DON Cruz Attending Unavailable DOLCE, DON Cruz Referring Unavailable DOLCE, DON Cruz Attending Unavailable DOLCE, DON Cruz Attending Unavailable DOLCE, DON Cruz Referring Unavailable DOLCE, DON Cruz Attending Unavailable DOLCE, DON Cruz Attending Unavailable DOLCE, DON D Referring Unavailable DOLCE, DON Cruz Attending Unavailable DOLCE, DON D Referring Unavailable DOLCE, DON Cruz Attending Unavailable DOLCE, DON D Referring Unavailable DOLCE, DON Cruz Attending Unavailable Waite PRODUCTION 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 WORKER[employer], [employer] Primary Care Provider SALBADOR HERNANDEZ Primary Care Physician NKANSAH-AMANKRA, ASTRID Attending Unavail able NKANSAH-AMANKRA, ASTRID Attending Unavail able NKANSAH-AMANKRA, ASTRID Referring Unavail able WAITE, COMPA Primary Care Unavailable NKANSAH-AMANKRA, ASTRID Admitting Unavail able WAITE, COMPA LUCIANA Primary Care Physician NKANSAH-AMANKRA, ASTRID Referring Unavail able WAITE, COMPA Primary Care Unavailable NKANSAH-AMANKRA, ASTRID Admitting Unavail able NKANSAH-AMANKRA, ASTRID Attending Unavail able Lewis Campbell Attending Unavailable [facility] Primary Care Unavailable ASTRID TOVAR Attending Unavail able [facility] Primary Care Unavailable ASTRID TOVAR Attending Unavail able [facility], COMPA Primary Care Unavailable Lewis Campbell Attending Unavailable [facility] Primary Care Unavailable Jose BARCENAS, Erlinda Santamaria Attending Feli parsons Allergies Allergy Classification Reported Allergen(s) Allergy Type Date of Onset Reaction(s) Facility metFORMIN (1 source) metFORMIN; Translations: [metformin] Drug Allergy Diarrhea (finding) [facility] (20 sources) metFORMIN; Translations: [metformin] Drug Allergy 3 Diarrhea (finding), Diarrhea [facility] (1 source) metFORMIN Drug Allergy [facility] (20 sources) varenicline Drug Allergy 8 [facility] (4 sources) Acetaminophen / oxyCODONE; Translations: [Percocet 5/325] Drug Allergy [facility] (4 sources) No Known Medication Allergies; Translations: [No Known Medication Allergies] Propensity to adverse reactions (disorder) [facility] Rep[facility] Medications Current Medications Medication Drug Class(es) Dates Sig (Normalized) Sig (Original) acetaminophen 325 mg / oxyCODONE hydrochloride 5 mg oral tablet (6 sources) Opioid Agonist Start: 02-21-2025 Percocet 5 mg-325 mg oral tablet 1 tab(s), Oral, q6hr, 7 tab(s), Refill(s) 0 Start Date: 02/21/25 Status: Ordered Quantity: 7.0 Unit: tab(s) Repeat number: 1 Start: 10-31-2024 End: 11-11-2024 oxyCODONE-acetaminophen (Per cocet) 5-325 MG tablet Indications: Pain Take 1 [...] food or milk, [facility]/pharmacy #[id number], 180, cm, 05/13/22 12:43:00 EDT, [...] Weight Dosing Start Date: 07/30/20 Status: Ordered diazePAM 5 mg oral tablet (2 sources) Benzodiazepine Start: 02-22-2025 Valium 5 mg Tab See Instructions, 1 tab(s) Oral 30 minutes prior to procedure, # 1 tab(s), Refills(s) 0, Pharmacy: [facility]/pharmacy #[id number], 178, cm, 02/21/25 12:13:00 EDT, Height/Length Dosing, 97.7, kg, 02/21/25 12:13:00 EDT, Weight Dosing Start Date: 02/22/25 Status: Ordered Quantity: 1.0 Unit: tab(s) Repeat number: 1 0.5 ml dulaglutide 1.5 mg/ml auto-injector (15 [...] Date: 07/26/18 Status: Ordered Trulicity Not-[facility] Active ergocalciferol 1.25 mg oral capsule (4 [...] days, # 2 tab(s), Refills(s) 0, Pharmacy: [id number], 173, cm, 07/30/20 10:33:00 EST, Height/Length Dosing, 109.1, kg, 07/30/20 10:33:00 EST, Weight Dosing Start Date: 07/30/20 Status: Ordered glyBURIDE 5 mg oral tablet (20 sources) Sulfonylurea Start: 07-04-2023 End: 01-23-2024 take 1 tablet by mouth once daily at mealtime glyBURIDE (DIABETA) 5 mg tablet Indications: Type 2 diabetes mellitus without complication, without long-term current use of insulin ([facility]) TAKE 1 TABLET BY MOUTH EVERY MORNING AND AT NIGHT WITH MEALS 180 tablet 01/23/2024 Active Start: 04-23-2022 take 1 tablet by ayde th twice daily GlyBURIDE (Eqv-Micronase) 5 mg oral tablet 5 mg = 1 tab(s), Oral, BID, Refills(s) 0, Blood glucose Start Date: 04/23/22 Status: Ordered Repeat number: 1 Hydrocortisone (1 source) Corticosteroid Start: 07-30-2020 apply [...] Active ketorolac tromethamine 10 mg oral tablet (3 sources) Nonsteroidal Anti-inflammatory Drug, Cyclooxygenase Inhibitor Start: 02-19-2025 End: 02-24-2025 take 1 tablet by mouth every four hours as needed for pain ketorolac 10 mg Tab 10 mg = 1 tab(s), Oral, q4hr, PRN for pain, X 5 day(s), # 12 tab(s), Refills(s) 0, Pharmacy: [facility]/pharmacy #[id number], 178.5, cm, 02/19/25 10:47:00 EDT, Height/Length Dosing, 100.2, kg, 02/19/25 10:47:00 EDT, Weight Dosing Start Date: 02/19/25 Stop Date: 02/24/25 Status: Ordered Quantity: 12.0 Unit: tab(s) Repeat number: 1 Start: 07-30-2020 take 1 tablet by ayde th every eight hours as needed for pain ketorolac 10 mg Tab 10 mg = 1 tab(s), Oral, q8hr, PRN for pain, take with food, # 12 tab(s), Refills(s) 0, Pharmacy: [id number], 173, cm, 07/30/20 10:33:00 EST, Height/Length [...] Ordered Start: 02-04-2020 take 1 capsule by [facility] every twelve hours Omeprazole 40 MG 1 capsule Orally bid for 10 day(s) Jan, Not-Taking SITagliptin 100 mg oral tablet (4 sources) Dipeptidyl Peptidase 4 Inhibitor Start: 01-29-2020 take 1 tablet by mouth once daily Januvia 100 mg Tab 100 mg = 1 tab(s), Oral, Daily, # 30 tab(s), Refills(s) 0 Start Date: 09/11/20 Status: Ordered tamsulosin hydrochloride 0.4 mg oral capsule (8 sources) alpha-Adrenergic Liliam Start: 02-19-2025 take 1 capsule by mouth once daily tamsulosin 0.4 mg Cap = 1 cap(s), Oral, Daily, Refills(s) 0 Start Date: 02/22/25 Status: Ordered Repeat number: 1 Start: 11-05-2022 End: 2023 tamsulosin (FLOMAX) 0.4 mg c apsule Take by mouth daily. 0 11/05/2022 2023 Discontinued (Therapy completed) traZODone hydrochloride 50 mg oral tablet (9 [...] the morning. 90 tablet 1 09/25/2024 Active Zofran ODT 4 mg Tab-Dis (2 sources) Start: 02-21-2025 take 1 tablet by mouth every eight hours Zofran ODT 4 mg Tab-Dis 4 mg = 1 tab(s), Oral, q8hr, # 6 tab(s), Refills(s) 0, Pharmacy: [facility]/pharmacy #[id number], 178, cm, 02/21/25 12:13:00 EDT, Height/Length Dosing, 97.7, kg, 02/21/25 12:13:00 EDT, Weight Dosing Start Date: 02/21/25 Status: Ordered Quantity: 6.0 Unit: tab(s) Repeat number: 1 Completed/Discontinued Medications Medication Drug Class(es) Dates Sig [...] 10 day(s) Jan, Not-Taking polyethylene glycol 3350 [id number] mg / potassium chloride 2970 mg / sodium bicarbonate 6740 mg / sodium chloride 5860 mg / sodium sulfate 35317 mg powder for oral solution (4 sources) [...] or gangrene, not specified as recurrent] Onset: 04-23-20 Episodic Abdominal pain (5 sources) Abdominal pain; [...] other diabetic neurological complication] Onset: 09-09-1905-07-2024 Chronic Diabetes mellitus without complication (20 sources) Diabetes mellitus; Translations: [Type 2 diabetes mellitus without complications] Onset: 09-09-19 Resolved : 09-26-1907-30-2020 Chronic Disorders of lipid metabolism (5 sources) Mixed hypercholesterolemia and hypertriglyceridemia; Translations: [Mixed hyperlipidemia] Onset: 09-27-1909-26-2024 Chronic Disorders of teeth and jaw (1 source) Acute gingivitis, plaque induced Episodic Esophageal disorders (2 sources) Gastroesophageal reflux disease; Translations: [Gastro-esophageal reflux disease without esophagitis] Chronic Gastrointestinal hemorrhage (5 sources) Rectal hemorrhage; Translations: [Hematochezia] Onset: 12-01-1903-08-2018 Episodic Hemorrhoids (2 sources) Hemorrhoids 03-08-2018 Episodic Mood disorders (11 sources) Major depression, single episode 09-11-2020 Chronic Mycoses (20 sources) Candidal balano-posthitis; Translations: [Other urogenital candidiasis] Onset: 09-09-1907-30-2020 Episodic Nausea and vomiting (4 sources) Nausea; Translations: [Nausea] Episodic Osteoarthritis (9 sources) Arthritis of right acromioclavicular joint; Translations: [Primary osteoarthritis, right shoulder] Onset: 10-15-1909-09-2021 Chronic Other acquired deformities (2 sources) Contracture of joint of right ankle; Translations: [Contracture, right ankle] 11-06-2024 Chronic Other aftercare (1 source) superintendent terminal (current) use of oral hypoglycemic drugs; Translations: [NUT PICKER USE ORAL 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 DX] Onset: 11-02-19 Episodic [...] the digestive system and abdomen] Episodic Other injuries and conditions due to external causes (2 sources) Foreign body in bladder; Translations: [Foreign body in bladder, initial encounter] Onset: 02-23-20 25 Episodic Other liver diseases (11 sources) Elevated liver enzymes level 09-11-2020 Episodic [...] Crohn's disease 04-27-2022 Chronic Residual codes; unclassified (11 sources) Tobacco user 10-23-2012 Episodic Comment on above: Added secondary to s ocial history documentation. Residual codes; unclassified (1 source) Acquired absence of other specified parts of digestive tract; Translations: [ACQ ABSENCE OTH PART DIGESTV TRACT] Onset: 11-02-19 Episodic Screening and history of mental health and substance abuse codes (9 sources) Tobacco use and exposure - finding 04-28-2022 Chronic Skin and subcutaneous tissue infections (2 sources) Abscess of toe of right foot; Translations: [Cutaneous abscess of right foot] 05-07-2024 Episodic Substance-related disorders (20 sources) Smoker; Translations: [Nicotine dependence, cigarettes, uncomplicated] Onset: 09-09-19 22 04-23-2022 Chronic Comment on above: Added secondary [...] Problem Classification Problem Date Documented Date Episodic/Chronic Administrative/social admission (2 sources) Patient encounter status; Translations: [Encounter for other administrative examinations] Onset: 2023 2023 Episodic Fever of unknown origin (11 sources) Fever; Translations: [Fever, unspecified] Onset: 09-09-2021 Resolved: 09-25-2024 07-30-2020 Episodic Headache; including migraine (13 sources) Chronic headache disorder; Translations: [Headache] Onset: 09-09-2021 03-08-2018 Episodic Mood disorders (10 sources) Mood disorders; Translations: [DEPRESSION UNSPECIFIED] Onset: 07-04-2023 Resolved: 09-25-2024 07-04-2023 Nonspecific chest pain (4 sources) Other [...] Test Name Value Interpretation Reference Range Facility C Urineon 02-23-2025 Bacteria identified Cx Nom (U) Microbiology PROCEDURE: Urine Culture [R1] SOURCE: U CleanCatch BODY SITE: COLLECTED DATE/TIME: 02/21/2025 15:21 EDT RECEIVED DATE/TIME: 02/21/2025 17:00 EDT START DATE/TIME: 02/21/2025 17:00 EDT FREE TEXT SOURCE: Amira CORONEL, Lewis Campbell MD, Lewis FINAL REPORTS Final Report [] Verified Date/Time: 02/23/2025 10:26 EDT No growth at 2 days. Performing Locations R1: This test was performed at: [facility], [address] [place] [address], [id number]- , [place], Normal [facility] Comment on above: Performed By: #### [id number] #### [facility] [address] [place] [address] Ambulatory Visit Summaryon 0 02-22-2025 Ambulatory Visit Summary Ambulatory Visit Summary BRIAN TSE :1980 Visit Date:02/22/2025 Ambulatory Visit Instructions Your Diagnosis Foreign body in bladder Ureteral stone History of kidney stones Your Care Team Attending Physician - ARMANI CORONEL, ASTRID Primary Care Physician - COMPA WAITE This Is Your Medications List Contact prescribing physician if questions or concerns acetaminophen-oxycodone (Percocet 5 mg-325 mg oral tablet) diazepam (Valium 5 mg Tab) glyBURIDE (GlyBURIDE (Eqv-Micronase) 5 mg oral tablet) ketorolac (ketorolac 10 mg Tab) ondansetron (Zofran ODT 4 mg Tab-Dis) phenazopyridine (Pyridium 100 mg Tab) tamsulosin (Flomax 0.4 mg Cap) tamsulosin (tamsulosin 0.4 mg Cap) Procedures Performed Cystoscopic removal of ureteric stent (02/22/2025), Cystoscopy (02/19/2025), Laparoscopy, surgical; repair initial inguinal hernia (05/20/2022), Harris bunionectomy, right (02/27/2015), Harris bunionectomy, left foot (01/02/2015), Hemorrhoidectomy (10/2012), Cholecystectomy, Circumcision, Colonoscopy, Colonoscopy, Extn - Extraction of tooth, Lateral sphincterotomy, removal of ingrown toenail. Discharge Vitals Heart Rate (Peripheral) 90 Respiratory Rate 16 Blood Pressure 136/80 Height 178 cm Height 70 in Weight 100.2 kg Weight 220.903 lb BMI 31.62 What to do next Scheduled Follow-Up Appointments Tuesday 2:30 PM EDT Where: [facility] You Need to Schedule the Following Appointments Follow Up with ARMANI CORONEL, NAVIN RESENDIZ When: Only if needed Where: Medications What How Much When Instructions Unchanged acetaminophen-oxycodone (Percocet 5 mg-325 mg oral tablet) 1 Tablets By Mouth Every 6 hours Contact prescribing physician if questions or concerns Unchanged diazepam (Valium 5 mg Tab) See instructions 1 tab(s) Oral 30 minutes prior to procedure Contact prescribing physician if questions or concerns Unchanged glyBURIDE (GlyBURIDE (Eqv-Micronase) 5 mg oral tablet) 1 Tablets By Mouth 2 times a day Contact prescribing physician if questions or concerns Unchanged ketorolac (ketorolac 10 mg Tab) 1 Tablets By Mouth Every 4 hours as needed for for pain Duration: 5 Days Contact prescribing physician if questions or concerns Unchanged ondansetron (Zofran ODT 4 mg Tab-Dis) 1 Tablets By Mouth Every 8 hours Contact prescribing physician if questions or concerns Unchanged phenazopyridine (Pyridium 100 mg Tab) 1 Tablets By Mouth 3 times a day Duration: 3 Days Contact prescribing physician if questions or concerns Unchanged tamsulosin (Flomax 0.4 mg Cap) 1 Capsules By Mouth Every day Contact prescribing physician if questions or concerns Unchanged tamsulosin (tamsulosin 0.4 mg Cap) 1 Capsules By Mouth Every day Contact prescribing physician if questions or concerns Medications and Immunizations Administered Given lidocaine Top 2% Gel w/Appl 11 mL, 11 mL, Topical. For: Foreign body in bladder Allergies metFORMIN (Diarrhea) Problems Ongoing - Any problem that you are currently receiving treatment for. BMI 31.0-31.9,adult History of kidney stones Inguinal hernia Kidney stone Reducible left inguinal hernia Smoker Smoker Tobacco use Ureteral stone Historical - Any problem that you are no longer receiving treatment for. Candidal balano-posthitis DM (diabetes mellitus) Elevated liver enzymes Major depressive disorder, single episode Uncontrolled diabetes mellitus Patient Survey You may receive a survey via text or e-mail asking about your office visit. Please share your experience with us by completing your survey. We appreciate your feedback and thank you for choosing us for your care. Education Materials Dietary Guidelines to Help Prevent Kidney Stones Kidney stones are deposits of minerals and salts that form inside your kidneys. Your risk of developing kidney stones may be greater depending on your diet, your lifestyle, the medicines you take, and whether you have certain medical conditions. Most people can lower their risks of developing kidney stones by following these dietary guidelines. Your dietitian may give you more specific instructions depending on your overall health and the type of kidney stones you tend to develop. What are tips for following this plan? Reading food labels ??? Choose foods with no salt added or low-salt labels. Limit your salt (sodium) intake to less than 1,500 mg a day. ??? Choose foods with calcium for each meal and snack. Try to eat about 300 mg of calcium at each meal. Foods that contain 200???500 mg of calcium a serving include: ? 8 oz (237 mL) of milk, pbmuoak-jabhwtnwleqo-zn iry milk, and calcium-fortifiedfruit juice. Calcium-fortified means that calcium has been added to these drinks. ? 8 oz (237 mL) of kefir, yogurt, and soy yogurt. ? 4 oz (114 g) of tofu. ? 1 oz (28 g) of cheese. ? (more content not included)... Normal [facility] ED Note-Physicianon 02-23-20 ED Note-Physician ED Note-Physician Basic Information No qualifying data available. Chief Complaint pt states had a stent placed in his l kidney a few days ago. states has had l flank pain and pelvic pain since. states n/v as well and painful urination. pt states chills as well, no fever. History of Present Illness Pt is a 44 year old male who presents to [facility] ED post x2 days after left kidney stents. Pt complains of 10/10 non-radiating left sided abdominal pain. Pt appears in acute distress and is writhing in pain. Patient also complains of a loss of appetite with N/V/D. patient describes the emesis as yellow with traces of blood. Patient also notes dark runny stools and hematuria. Pt is very unhappy with the stent placement and feels as if the stent did more harm than good. Pt states he was only sent home on FloMax and Pyridium. Patient took an ibuprofen 8 hours ago in attempt to control the pain but it did little to improve his pain. Pt denies any fevers at home. medHx: DM, MDD, SMoker, L Kidney Stent Placement 2 days ago Allergies: NKDA Meds: Glyburide, Ibuprofen PRN, Flomax, Pyridium Physical Exam Vitals & Measurements T: 36.9 ???C(Oral) HR: 81(Peripheral) RR: 17 BP: 155/86 SpO2: 99% HT: 178 cm WT: 97.7 kg BMI: 30.84 General: alert, moderate distress Skin: warm, dry Head: no trauma, normocephalic Neck: Trachea midline, no adenopathy, no tenderness Eye: normal conjunctiva, sclera clear ENMT: TM's clear, oral mucosa moist, no pharyngeal erythema or exudate Cardiovascular: regular rate and rhythm, normal peripheral perfusion, +2/4 radial pulses. Respiratory: Lungs CTA, respirations non labored Chest wall: no deformity. Gastrointestinal: soft, non distended, RUQ+RLQ tenderness, no guarding. Back: No tenderness, Normal ROM, Normal alignment. Extremities: no deformity, no trauma Neurological: oriented x 4, LOC appropriate for age, CN II-XII intact, motor strength equal & normal bilaterally, sensation equal & normal bilaterally, speech normal Psychiatric: cooperative, affect appropriate for age, normal judgement, normal psychiatric thoughts. No obvious signs of infection. Medical Decision Making Please refer to the full note written on the same date February 21, 2025 by myself Lewis Campbell. Assessment/Plan 1. Intense Abdominal Pain 2. Post-Op Complications 3. Dehydration 1. Pain control + anti-emetics 2. KUB to check stent placement 3. IV Fluids Disposition Plan Patient Discharge Condition Improved Discharge Disposition Home Discharge Prescription List Prescriptions Percocet 5 mg-325 mg oral tablet, 1 tab(s), Oral, q6hr Zofran ODT 4 mg Tab-Dis, 4 mg= 1 tab(s), Oral, q8hr Follow-up With When Contact Information ASTRID TOVAR In 1 day 02/22/2025 EDT [address] [place] [address]- [phone] Business (1) Additional Instructions: Report to the urology office in [place] at 8:00 tomorrow morning with a commercial driver's license driver. Nothing to eat after midnight. Additional Instructions: COMPA WAITE In 3 days [address] [place] [id number] Thoof (1) Additional Instructions: Patient Education Renal Colic Attestation Patient was treated and evaluated by the Medical Student. The attending physician was in the Emergency Department at all times and supervised care. The case was discussed with the attending physician and diagnostics were reviewed as needed. Problem List/Past Medical History Ongoing BMI 31.0-31.9,adult History of kidney stones Inguinal hernia Kidney stone Reducible left inguinal hernia Smoker Smoker Tobacco use Ureteral stone Historical Candidal balano-posthitis DM (diabetes mellitus) Elevated liver enzymes Major depressive disorder, single episode Uncontrolled diabetes mellitus Procedure/Surgical History Cystoscopy (02/19/2025), Laparoscopy, surgical; repair initial inguinal hernia (05/20/2022), Harris bunionectomy, right (02/27/2015), Harris bunionectomy, left foot (01/02/2015), Hemorrhoidectomy (10/2012), Cholecystectomy, Circumcision, Colonoscopy, Colonoscopy, Extn - Extraction of tooth, Lateral sphincterotomy, removal of ingrown toenail. Medications Inpatient No active inpatient medications Home Flomax 0.4 mg Cap, 0.4 mg= 1 cap(s), Oral, Daily GlyBURIDE (Eqv-Micronase) 5 mg oral tablet, 5 mg= 1 tab(s), Oral, BID ketorolac 10 mg Tab, 10 mg= 1 tab(s), Oral, q4hr, PRN Pyridium 100 mg Tab, 100 mg= 1 tab(s), Oral, TID Allergies metFORMIN (Diarrhea) Social History Alcohol - Denies Alcohol Use, 11/30/2017 Current. Beer. 1-2 times per month., 02/15/2025 Substance Abuse - Denies Substance Abuse, 02/15/2011 Current. Previous treatment: None., 02/15/2025 Current, 09/13/2017 Tobacco - High Risk, 05/10/2015 10 or more cigarettes (1/2 pack or more)/day in last 30 days Tobacco Use:. Never Smokeless Tobacco Use:. Cigarettes, 1 per day. Started age 11.0 Years. Yes, 02/15/2025 5-9 cigarettes (between 1/4 to 1/2 pack)/day in last (more content not included)... Normal [facility] Comment on above: Result Comment: Elec tronically Signed By: Alonso KEN IIIHarris\.br\Date and Time Signed: 02/21/25 12:38 EDT\.br\Electronically Co-Signed By: Lewis Campbell MD\.br\Date and Time Co-Signed: 02/22/25 07:57 EDT Urology Office/Clinic Noteon 02-22-2025 Urology Office/Clinic Note Urology Office/Clinic Note Chief Complaint Cysto Lt stent removal HPI Staff Cysto Lt stent removal History of Present Illness Tests reviewed: reviewed op note I have reviewed the previous health record information and history for this patient from Dr. Owen. I have reviewed and verified the staff HPI to be accurate for this encounter. Review of Systems PHQ Score Initial Depression Screen Score: 0 SCORE ROS - Provider Constitutional: denies weight loss, denies hot flashes. Eyes: denies eye problems. Gastrointestinal: denies nausea, denies vomiting. Cardiovascular: denies chest pain or angina. Integumentary: no dryness Musculoskeletal: denies musculoskeletal symptoms. ENMT: denies otolaryngeal symptoms. Respiratory: no shortness of breath. Heme/Lymph: denies easy bleeding tendency, denies easy bruising tendency. Psychiatric: no confusion, no anxiety. Genitourinary: See HPI. Physical Exam Vitals & Measurements HR: 90(Peripheral) RR: 16 BP: 136/80 HT: 70 in HT: 178 cm WT: 220.903 lb WT: 100.2 kg BMI: 31.62 General Appearance: alert, no distress, well nourished, well developed male. Procedure Operative Information Anesthesia Type: Local Procedure: Local Cystoscopy with Stent Removal Complications: None Surgical risks, benefits, details of the procedure have been explained to the patient. Full informed consent has been obtained. Intraoperative Information Prepped: Patient is placed in supine position. The patient was prepped with the Betadine solution. Anesthesia: 2% Xylocaine Jelly per urethra. Procedure: Cystoscopy and left stent removal. The flexible Cystoscope was passed in retrograde fashion into the bladder without difficulty. The bladder was viewed in entirety and found to be without tumors or stones. Mild inflammation was seen surrounding the orifice with the stent seen protruding from it. The stent was then grasped and removed in its entirety. Specimens Removed: None Postoperative Information The patient tolerated the procedure well and was subsequently discharged home. Assessment/Plan PMH: DM, last A1c 7 per pt. IPSS (15). TAQUERIA (20). 1. Foreign body in bladder (T19.1XXA: Foreign body in bladder, initial encounter) S/p Cysto, L URS, L ureteral stent placement 02/19/25. Pt had IO cysto, L stent removal today. Valium taken prior (pt's request). Pt had significant discomfort. 2. Ureteral stone (N20.1: Calculus of ureter) CT AP wo con 02/06/25 [facility] - 1-2 mm stone at L UVJ. No hydro or renal stones. Renal fxn - BUN 10, Cr 1.23, GFR >60. -See #1 3. History of kidney stones (Z87.442: Personal history of urinary calculi) S/p R ESWL 10/28/[address] Owen. [1] Follow-up With When Contact Information ARMANI CORONEL, ASTRID, URL Only if needed Additional Instructions: Patient Education Dietary Guidelines to Help Prevent Kidney Stones I, Soco Rodriguez, personally scribed for Dr. Tovar on 02/22/2025 12:06:24. . Portions of this record may have been created with voice recognition artificial intelligence software, specifically [employer] and or [employer]. Substitutions may have occurred due to the inherent limitations of voice recognition and artificial intelligence software. Problem List/Past Medical History Ongoing BMI 31.0-31.9,adult History of kidney stones Inguinal hernia Kidney stone Reducible left inguinal hernia Smoker Smoker Tobacco use Ureteral stone Historical Candidal balano-posthitis DM (diabetes mellitus) Elevated liver enzymes Major depressive disorder, single episode Uncontrolled diabetes mellitus Procedure/Surgical History Cystoscopic removal of ureteric stent (02/22/2025), Cystoscopy (02/19/2025), Laparoscopy, surgical; repair initial inguinal hernia (05/20/2022), Harris bunionectomy, right (02/27/2015), Harris bunionectomy, left foot (01/02/2015), Hemorrhoidectomy (10/2012), Cholecystectomy, Circumcision, Colonoscopy, Colonoscopy, Extn - Extraction of tooth, Lateral sphincterotomy, removal of ingrown toenail. Medications Flomax 0.4 mg Cap, 0.4 mg= 1 cap(s), Oral, Daily GlyBURIDE (Eqv-Micronase) 5 mg oral tablet, 5 mg= 1 tab(s), Oral, BID ketorolac 10 mg Tab, 10 mg= 1 tab(s), Oral, q4hr, PRN Percocet 5 mg-325 mg oral tablet, 1 tab(s), Oral, q6hr Pyridium 100 mg Tab, 100 mg= 1 tab(s), Oral, TID tamsulosin 0.4 mg Cap, 1 cap(s), Oral, Daily Valium 5 mg Tab, See Instructions Zofran ODT 4 mg Tab-Dis, 4 mg= 1 tab(s), Oral, q8hr Allergies metFORMIN (Diarrhea) Social History Alcohol - Denies Alcohol Use, 11/30/2017 Current. Beer. 1-2 times per month., 02/15/2025 Substance Abuse - Denies Substance Abuse, 02/15/2011 Current. Previous treatment: None., 02/15/2025 Current, 09/13/2017 Tobacco - High Risk, 05/10/2015 5-9 cigarettes (between 1/4 to 1/2 pack)/day in last 30 days, Smoker, current status unkno (more content not included)... Normal [facility] Comment on above: Result Comment: Elec tronically Signed By: ASTRID TOVAR MD\.br\Date and Time Signed: 02/22/25 12:13 EDT\.br\Electronically Co-Signed By: Soco Rodriguez\.br\Date and Time Co-Signed: 02/22/25 12:06 EDT BMPon 02-21-2025 Anion gap [Moles/Vol] 12 mmol/L Normal 6-16 [facility] Comment on above: Performed By: #### 2 [id number] #### [facility] [address] [place] [address] BUN/Creat Ratio 12 No Units Normal 10-20 [facility] Comment on above: Performed By: #### 2 [id number] #### [facility] [address] [place] [address] Calcium [Mass/Vol] 9.2 mg/dL Normal 8.9-11.1 [facility] Comment on above: Performed By: #### 2 [id number] #### [facility] [address] [place] [address] Chloride [Moles/Vol] 106 mmol/L Normal 101-111 [facility] Comment on above: Performed By: #### 2 [id number] #### [facility] [address] [place] [address] CO2 [Moles/Vol] 23 mmol/L Normal 21-31 [facility] Comment on above: Performed By: #### 2 [id number] #### [facility] [address] [place] [address] Creatinine [Mass/Vol] 1.1 mg/dL Normal 0.5-1.3 [facility] Comment on above: Performed By: #### 2 [id number] #### [facility] [address] [place] [address] Glucose [Mass/Vol] 207 mg/dL High 55-199 [facility] Comment on above: Performed By: #### 2 [id number] #### [facility] [address] [place] [address] Potassium [Moles/Vol] 3.9 mmol/L Normal 3.5-5.3 [facility] Comment on above: Performed By: #### 2 [id number] #### [facility] [address] [place] [address] Sodium [Moles/Vol] 137 mmol/L Normal 135-145 [facility] Comment on above: Performed By: #### 2 [id number] #### [facility] [address] [place] [address] Urea nitrogen [Mass/Vol] 13 mg/dL Normal 5-21 [facility] Comment on above: Performed By: #### 2 [id number] #### [facility] [address] [place] [address] CBC w/ Auto Diffon 5 Basophil Absolute 0.1 E9/L Normal 0.0-0.2 [facility] Comment on above: Performed By: #### 2 [id number] #### [facility] [address] [place] [address] Basophils/100 WBC (Bld) 0.6 % Normal 0.0-2.0 [facility] Comment on above: Performed By: #### 2 660394 #### [facility] [address] [place] [address] Eos Absolute 0.0 E9/L Normal 0.0-0.5 [facility] Comment on above: Performed By: #### 2 [id number] #### [facility] [address] [place] [address] Eosinophils/100 WBC (Bld) 0.1 % Normal 0.0-8.0 [facility] Comment on above: Performed By: #### 2 [id number] #### [facility] [address] [place] [address] Erythrocyte distribution width (RBC) [Ratio] 14.5 % High 10.9-14.2 [facility] Comment on above: Performed By: #### 2 [id number] #### [facility] [address] [place] [address] Hematocrit (Bld) [Volume fraction] 48.2 % Normal 37.7-49.0 [facility] Comment on above: Performed By: #### 2 [id number] #### [facility] [address] [place] [address] Hemoglobin (Bld) [Mass/Vol] 16.3 g/dL Normal 13.5-17.5 [facility] Comment on above: Performed By: #### 2 [id number] #### [facility] [address] [place] [address] Lymph Absolute 2.0 E9/L Normal 1.0-4.0 [facility] Comment on above: Performed By: #### 2 999482 #### [facility] [address] [place] [address] Lymphocytes/100 WBC (Bld) 17.9 % Normal 14.0-50.0 [facility] Comment on above: Performed By: #### 2 842855 #### [facility] [address] [place] [address] MCH (RBC) [Entitic mass] 29.5 pg Normal 27.0-34.0 [facility] Comment on above: Performed By: #### 2 [id number] #### [facility] [address] [place] [address] MCHC (RBC) [Mass/Vol] 33.8 g/dL Normal 31.4-36.0 [facility] Comment on above: Performed By: #### 2 [id number] #### [facility] [address] [place] [address] MCV (RBC) [Entitic vol] 87.5 fL Normal 80.0-100.0 [facility] Comment on above: Performed By: #### 2 [id number] #### [facility] [address] [place] [address] Walton Absolute 0.8 E9/L Normal 0.2-1.0 [facility] Comment on above: Performed By: #### 2 253206 #### [facility] [address] [place] [address] Monocytes/100 WBC (Bld) 6.9 % Normal 4.0-14.0 [facility] Comment on above: Performed By: #### 2 274968 #### [facility] [address] [place] [address] Neutro Absolute 8.2 E9/L High 2.0-7.5 [facility] Comment on above: Performed By: #### 2 734106 #### [facility] [address] [place] [address] Neutro Auto 74.5 % Normal 36.0-75.0 [facility] Comment on above: Performed By: #### 2 336348 #### [facility] [address] [place] [address] Platelet 233.0 E9/L Normal 150.0-500.0 [facility] Comment on above: Performed By: #### 2 [id number] #### [facility] [address] [place] [address] Platelet mean volume (Bld) [Entitic vol] 8.7 fL Normal 6.4-10.8 [facility] Comment on above: Performed By: #### 2 [id number] #### [facility] [address] [place] [address] RBC 5.5 E12/L Normal 4.3-5.9 [facility] Comment on above: Performed By: #### 2 [id number] #### [facility] [address] [place] [address] WBC 11.1 E9/L High 4.0-11.0 [facility] Comment on above: Performed By: #### 2 [id number] #### [facility] [address] [place] [address] ED Clinical Summaryon 2024 ED Clinical Summary ED Clinical Summary [address] [address] ED Clinical Summary Person Information Name: BRIAN TSE Maria D/[facility] Age: 44 Years : 1980 Sex: Male Language: Liberian PCP: COMPA WAITE Marital Status: Single Visit Id: Visit Reason: Post surgical problem; Flank pain; Genitourinary problem; STENT PUT IN RECENTLY - PAIN AT STENT SITE Speciality: Acuity: 3 Enc Type: Emergency Med Service: Emergency Arrival: 02/21/2025 12:02:33 Discharge: 02/21/2025 16:49:22 LOS: 000 04:47 Checkin: 02/21/2025 12:02:33 Checkout: 02/21/2025 16:49:22 Dispo Type: Home (Routine DC) EVENTS: Event Name Event Status Request Date/Time Start Date/Time Complete Date/Time Arrive Complete 02/21/2025 12:02:33 02/21/2025 12:02:33 02/21/2025 12:02:33 Document Home Meds Request 02/21/2025 12:02:33 Triage Complete 02/21/2025 12:02:33 02/21/2025 12:13:27 02/21/2025 12:13:27 Bed Assign Complete 02/21/2025 12:08:58 02/21/2025 12:08:58 02/21/2025 12:08:58 Dr Exam Complete 02/21/2025 12:08:58 02/21/2025 12:17:17 02/21/2025 12:17:17 RN Exam Complete 02/21/2025 12:08:58 02/21/2025 13:15:45 02/21/2025 13:15:45 Registration Complete 02/21/2025 12:17:17 02/21/2025 12:39:12 02/21/2025 12:39:12 Dr Exam Complete 02/21/2025 12:35:57 02/21/2025 12:35:57 02/21/2025 12:35:57 Reg Complete Request 02/21/2025 12:39:12 Reg Bed Request Complete 02/21/2025 12:39:12 02/21/2025 12:39:12 02/21/2025 12:39:12 X-Ray Complete 02/21/2025 12:51:02 02/21/2025 13:07:40 02/21/2025 13:25:54 Meds Admin Request 02/21/2025 12:51:02 Pending Labs Complete 02/21/2025 12:51:02 02/21/2025 15:42:37 Lab Complete 02/21/2025 12:51:02 02/21/2025 13:40:15 Pending Labs Complete 02/21/2025 13:16:09 02/21/2025 13:16:09 02/21/2025 13:40:15 Lab Complete 02/21/2025 13:16:09 02/21/2025 13:16:09 02/21/2025 13:40:15 Wet Read Request 02/21/2025 13:25:54 Meds Admin Complete 02/21/2025 14:24:33 02/21/2025 14:29:04 Meds Admin Complete 02/21/2025 14:29:06 02/21/2025 14:37:45 EKG Complete 02/21/2025 14:53:27 02/21/2025 15:07:54 Pending Labs Collected 02/21/2025 15:42:38 02/21/2025 15:42:38 Lab Collected 02/21/2025 15:42:38 02/21/2025 15:42:38 Discharge Complete 02/21/2025 16:40:15 02/21/2025 16:49:27 02/21/2025 16:49:27 Transfer Complete 02/21/2025 16:49:27 02/21/2025 16:49:27 02/21/2025 16:49:27 ADDRESS: [facility] [phone] PHYS DOC NOTES: MEDICAL INFORMATION: Prescriptions Given: New Medications [id number], [address], [place] [id number], [phone] ondansetron (Zofran ODT 4 mg Tab-Dis) 1 Tablets By Mouth every 8 hours. Refills: 0. Printed Prescriptions acetaminophen-oxycodone (Percocet 5 mg-325 mg oral tablet) 1 Tablets By Mouth every 6 hours. Refills: 0. Medications to Continue with No Changes Other Medications glyBURIDE (GlyBURIDE (Eqv-Micronase) 5 mg oral tablet) 1 Tablets By Mouth 2 times a day. ketorolac (ketorolac 10 mg Tab) 1 Tablets By Mouth every 4 hours as needed for pain for 5 Days. Refills: 0. phenazopyridine (Pyridium 100 mg Tab) 1 Tablets By Mouth 3 times a day for 3 Days. Refills: 0. tamsulosin (Flomax 0.4 mg Cap) 1 Capsules By Mouth every day. Refills: 0. PATIENT EDUCATION INFORMATION: Instructions: Renal Colic Follow up: With: Address: When: ASTRID TOVAR [address] [place] [phone] Business (1) In 1 day 02/22/2025 With: Address: When: Report to the urology office in [place] at 8:00 tomorrow morning with a commercial driver's license driver. Nothing to eat after midnight. With: Address: When: COMPA WAITE [address] [place], [place] [phone] Business (1) In 3 days DIAGNOSIS: Ureter colic; Ureteral stent present Normal [facility] ED Note-Physicianon 02-22-20 25 ED Note-Physician ED Note-Physician Basic Information Time Seen: Lewis Campbell MD 02/21/2025 12:35 Chief Complaint pt states had a stent placed in his l kidney a few days ago. states has had l flank pain and pelvic pain since. states n/v as well and painful urination. pt states chills as well, no fever. History of Present Illness 44-year-old male presents with complaint of left lower quadrant pain that radiates to the left flank. Patient states that he had a stent placed 2 days ago in the left ureter. He states he has had this intensity of pain ever since he was discharged. Patient states the pain has not been controlled. Patient states she would like the stent removed. Patient denies any fever with this. He does feel nauseated with it. He states his bowel movements have been small but formed. Does not describe any pain with urination. Patient has a longstanding history of kidney stones. He is a diabetic but takes oral hypoglycemics. Only previous abdominal surgery was a left inguinal hernia repair. Review of Systems A 10 point review of systems is negative except as noted above. Medical and Surgical History: Reviewed and noted Social history: Lives at home Tobacco: Denies Physical Exam Vitals & Measurements T: 36.9 ???C(Oral) HR: 70(Monitored) RR: 18 BP: 114/79 SpO2: 98% HT: 178 cm WT: 97.7 kg BMI: 30.84 This is a moderately overweight 44-year-old male he is alert and oriented his skin is warm but diaphoretic he appears to be quite uncomfortable. Heart is regular. Lungs are clear to auscultation. Abdomen shows no scars or hernias. He is very tender to deep palpation in the left upper quadrant with some voluntary guarding. There is also tenderness present in the left CVA region. Medical Decision Making We will initially control his pain here before being sent x-ray to check stent position. Urinalysis will also be obtained to rule out infection. I discussed the case with the patient's urologist. He states that he did recommend placing a string at the urethral meatus so the patient could remove the stent on his own. Patient refused. Patient is scheduled to have the stent removed on Tuesday. As the patient is having such significant discomfort the urology group will see him in [place] at 8 AM tomorrow to remove the stent. In the interim some pain medication nausea medicine to be sent with the patient. Patient knows he is to eat nothing after midnight. He patient is a arrive with a commercial driver's license driver Assessment/Plan Ureter colic (N23: Unspecified renal colic) Ureteral stent present (Z96.0: Presence of urogenital implants) Orders: acetaminophen-oxycodone , 1 tab(s), Oral, q6hr, 7 tab(s), Refill(s) 0 diazepam, 5 mg = 1 mL, Injection, IV Push, Once, Stop date 02/21/25 14:28:00 EDT, STAT, Start date 02/21/25 14:28:00 EDT, 02/21/25 14:28:00 EDT ketorolac, 30 mg = 1 mL, Injection, IV Push, Once, Stop date 02/21/25 12:49:00 EDT, STAT, Start date 02/21/25 12:49:00 EDT, 02/21/25 12:49:00 EDT morphine, 4 mg = 1 mL, Injection, IV Push, Once, Stop date 02/21/25 12:49:00 EDT, STAT, Start date 02/21/25 12:49:00 EDT, 02/21/25 12:49:00 EDT ondansetron, 4 mg = 2 mL, Injection, IV Push, Once, Stop date 02/21/25 12:49:00 EDT, STAT, Start date 02/21/25 12:49:00 EDT, 02/21/25 12:49:00 EDT ondansetron, 4 mg = 1 tab(s), Oral, q8hr, # 6 tab(s), Refills(s) 0, Pharmacy: [id number], 178, cm, 02/21/25 12:13:00 EDT, Height/Length Dosing, 97.7, kg, 02/21/25 12:13:00 EDT, Weight Dosing Sodium Chloride 0.9% intravenous solution, 1,000 mL, Soln-IV, IV, Once, Stop date 02/21/25 14:24:00 EDT, STAT, Start date 02/21/25 14:24:00 EDT, Infuse over 61, minute(s) Sodium Chloride 0.9% intravenous solution 1,000 mL, 1,000 mL, IV, 125 mL/hr, STAT, Start date 02/21/25 12:49:00 EDT, 8 hour(s), Total volume (mL): 1,000, 97.7 kg, 2.2, m2 Basic Metabolic Panel CBC w/ Auto Diff ECG 12 Lead Adult eGFR Lipase Level UA with Cult Rflx Urine Culture XR Abdomen 1 View Medications Administered Given Sodium Chloride 0.9% IV Sara 1000 mL 1,000 mL, 1000 mL, IV diazepam 5 mg/mL Inj, 5 mg, IV Push ketorolac 30 mg/mL Inj 1 mL, 30 mg, IV Push morphine 4 mg/mL Inj, 4 mg, IV Push NS 1000 ml Bolus, 1000 mL, IV ondansetron 4 mg/2 mL Inj, 4 mg, IV Push Disposition Plan Patient Discharge Condition Improved Discharge Disposition Home Discharge Prescription List Prescriptions Percocet 5 mg-325 mg oral tablet, 1 tab(s), Oral, q6hr Zofran ODT 4 mg Tab-Dis, 4 mg= 1 tab(s), Oral, q8hr Follow-up With When Contact Information ASTRID TOVAR In 1 day 02/22/2025 EDT [address] [place] [phone] Business (1) Additional Instructions: Report to the urology office in [place] at 8:00 tomorrow morning with a commercial driver's license driver. Nothing to eat after midnight. Additional Instructions: COMPA WAITE In 3 days [address] [place] [phone] Business (1) Additional Instructions: Patient Education Renal Colic Problem List/Past Medical History Ongoing (more content not included)... Normal [facility] Comment on above: Result Comment: Elec tronically Signed By: Amira CORONEL, Lewis\.br\Date and Time Signed: 02/21/25 17:00 EDT ED Patient Summaryon 025 ED Patient Summary ED Patient Summary [address] [address] Patient Discharge Instructions Person Information Name: BRIAN TSE Age: 44 Years Arrival Date: 02/21/2025 12:02:33 Discharge Diagnosis: Ureter colic; Ureteral stent present Primary Care Physician: COMPA WAITE Provider Information Primary Provider: Lewis Campbell MD [employer] Supervisor:None The exam and treatment you received in the Emergency Department were for an urgent problem and are not intended as complete care. It is important that you follow up with a doctor, nurse practitioner, or physician???s manufacturing assistant for ongoing care. If your symptoms become worse or you do not improve as expected and you are unable to reach your usual health care provider, you should return to the Emergency Department. We are available 24 hours a day. BRIAN TSE has been given the following list of patient education materials, prescriptions and follow-up instructions: Follow-up Instructions: With: Address: When: ASTRID TOVAR [address] [place] [phone] Business (1) In 1 day 02/22/2025 With: Address: When: Report to the urology office in [place] at 8:00 tomorrow morning with a commercial driver's license driver. Nothing to eat after midnight. With: Address: When: COMPA WAITE [address] [place], [place] [phone] Thoof (1) In 3 days In the event that this physician does not participate in your insurance network, please consult with your insurance company to find a nearby participating provider. Patient Education Materials: Renal Colic A MESSAGE TO ALL PATIENTS REGARDING OPIOIDS PRESCRIPTION OPIOIDS: WHAT YOU NEED TO KNOW Prescription opioids can be used to help relieve vcveendc-fa-wboizt pain and are often prescribed following a [...] as well, even when taken as directed: ??? Tolerance???meaning you might need to take more of the medication for the same pain relief ??? Physical dependence???meaning you have symptoms of withdrawal when a medication is stopped ??? Increased sensitivity to pain ??? Constipation ??? Nausea, vomiting, and dry mouth ??? Sleepiness and dizziness ??? Confusion ??? Depression ??? Low levels of testosterone that can result in lower sex drive, energy, and strength ??? Itching and sweating RISKS ARE GREATER WITH: ??? History of drug misuse, substance use disorder, or overdose ??? Mental health conditions (such as depression or anxiety) ??? Sleep apnea ??? Older age (65 years and older) ??? Avoid alcohol while taking prescription opioids. Also, unless specifically advised by your health care provider, medications to avoid include: ??? Benzodiazepines (such as Xanax or Valium) ??? Muscle relaxants (such as Soma or Flexeril) ??? Hypnotics (such as Ambien or Lunesta) ??? Other prescription opioids KNOW YOUR OPTIONS Talk to your health care provider about ways to manage your pain that don???t involve prescription opioids. Some of these options may actually work better and have fewer risks and side effects. Options may include: ??? Pain relievers such as acetaminophen, ibuprofen, and naproxen ??? Some medication that are also used for depression or seizures ??? Physical therapy and exercise ??? Cognitive behavioral therapy, a psychological, goal-directed approach, in which patients learn how to modify physical, behavioral, and emotional triggers of pain and stress. IF YOU ARE PRESCRIBED OPIOIDS FOR PAIN: ??? Never take opioids in greater amounts or more often than prescribed. ??? Follow up with your primary health care provider. o Work together to create a plan on how to manage your pain. o Talk about ways to help manage your pain that don???t involve prescription opioids. o Talk about any and all concerns and side effects. ??? Help prevent misuse and abuse o Never sell or share prescription opioids. o Never use another person???s prescription opioids. ??? Store prescription opioids in a secure place and out of reach of others (this may include visitors, children, friends, and family). ??? Safely dispose of unused prescription opioids: Find your community drug take-back program or your pharmacy mail-back program, or flush them down the toilet, following guidance from the Food a (more content not included)... Normal [facility] Lipase Levelon 02-21-2025 Lipase Lvl 33 unit/L Normal 13-58 [facility] Comment on above: Performed By: #### 2 [id number] #### [facility] [address] [place] [address] UA with Cult Rflxon 02-22-20 25 Color (U) Dark-Brown Abnormal Yellow [facility] [facility] Comment on above: Result Comment: Micr oscopic readings are only performed on those samples that meet specific criteria set forth by [facility]. Performed By: #### 4 [id number] #### [facility] [address] [place] [address] Ketones Ql (U) 1+ mg/dL Abnormal Negative [facility] Comment on above: Performed By: #### 4 [id number] #### [facility] [address] [place] [address] UA Blood 3+ mg/dL Abnormal Negative [facility] Comment on above: Performed By: #### 4 [id number] #### [facility] [address] [place] [address] UA Clarity Ex.Turbid Abnormal Clear [facility] Comment on above: Performed By: #### 4 [id number] #### [facility] [address] [place] [address] UA Glucose 2+ mg/dL Abnormal Negative [facility] Comment on above: Performed By: #### 4 [id number] #### [facility] [address] [place] [address] UA Leuk Est 250 Pallavi/uL Abnormal Negative [facility] Comment on above: Performed By: #### 4 [id number] #### [facility] [address] [place] [address] UA Mucous Negative Normal Negative [facility] Comment on above: Performed By: #### 4 [id number] #### [facility] [address] [place] [address] UA Nitrite Negative Normal Negative [facility] Comment on above: Performed By: #### 4 [id number] #### [facility] [address] [place] [address] UA pH 6.0 Invalid Interpretation Code 5.0-9.0 [facility] Comment on above: Performed By: #### 4 [id number] #### [facility] [address] [place] [address] UA Protein 1+ mg/dL Abnormal Negative [facility] Comment on above: Performed By: #### 4 [id number] #### [facility] [address] [place] [address] UA RBC >75 Abnormal 0-3 [facility] Comment on above: Performed By: #### 4 [id number] #### [facility] [address] [place] [address] UA Spec Grav 1.022 Invalid Interpretation Code 1.005-1.030 [facility] Comment on above: Performed By: #### 4 [id number] #### [facility] [address] [place] [address] UA Urobilinogen Negative Normal Negative [facility] Comment on above: Performed By: #### 4 [id number] #### [facility] [address] [place] [address] UA WBC 16-25 Abnormal 0-5 [facility] Comment on above: Performed By: #### 4 [id number] #### [facility] [address] [place] [address] Urobilinogen (U) [Mass/Vol] Negative Normal Negative [facility] Comment on above: Performed By: #### 4 [id number] #### [facility] [address] [place] [address] UA Spec Desc Clean Catch Normal [facility] Comment on above: Performed By: #### 4 [id number] #### [facility] [address] [place] [address] XR Abdomen 1 Viewon 02-22-20 XR Abdomen 1 View Exam Date/Time: 02/21/2025 13:25 EDT Reason for Exam: Abdominal pain Report IMPRESSION: LEFT URETERAL STENT IN EXPECTED POSITION. OTHERWISE, NEGATIVE KUB. EXAM: XR Abdomen 1 View DATE: 02/21/2025 1:07 PM CLINICAL HISTORY: Abdominal pain. Technologist Comments: pt states had a stent placed in his l kidney a few days ago. states has had l flank pain and pelvic pain since. states n/v as well and painful urination. COMPARISON: Intraoperative fluoroscopy 02/19/2025. TECHNIQUE: Two supine radiographs of the abdomen and pelvis were obtained. FINDINGS: The left ureteral stent remains in expected position. There are no significant calculi identified overlying the kidneys, left ureteral stent, expected course of the right ureter, or urinary bladder. The bowel gas pattern is unremarkable. The visualized lung bases are clear. Ordering Provider: Lewis Campbell FINAL REPORT Dictated: 02/21/2025 1:31 pm Jonnie Stuart MD Signed (Electronic Signature): 02/21/2025 1:31 pm Signed by: Jonnie Stuart MD Transcribed by: JOSE MANUEL Technologist: YELENA Normal [facility] eGFRon 02-21-2025 eGFR 85 mL/min/1.73 m2 Normal >=59 [facility] Comment on above: Performed By: #### 1 [id number] #### [facility] [address] [place] [address] Main OR Intraoperative Recor don 02-20-2025 Main OR Intraoperative Record Main OR Intraoperative Record IntraOp Document Type FT Summary Primary Physician: ASTRID TOVAR MD Finalized Date/Time: 02/20/25 08:31:05 Pt. Name: BRIAN TSE/Sex: 1980 Male Med Rec #: [id number] Physician: ASTRID TOVAR MD Financial #: [id number] Pt. Type: A Room/Bed: [facility] Admit/Disch: 02/19/25 10:20:10 - 02/19/25 14:50:07 Institution: Case Times FT Entry 1 Patient Times In Room 02/19/25 12:32:00 Out Room 02/19/25 12:55:00 Procedure Times Start 02/19/25 12:43:00 Stop 02/19/25 12:50:00 Anesthesia Times Start 02/19/25 12:32:00 Stop 02/19/25 12:55:00 Last Modified By: Neris SLAUGHTER, Lima Boo 02/19/25 12:55:19 Case Attendance FT Entry 1 Entry 2 Entry 3 Case Attendee Myron HARRIS, Patrice TOVAR MD, Neris RN, Lima Boo Role Performed RECYCLE COORDINATOR Surgeon - Primary Activity Manager - Primary Time In 02/19/25 12:32:00 02/19/25 12:32:00 02/19/25 12:32:00 Time Out 02/19/25 12:55:00 02/19/25 12:55:00 02/19/25 12:55:00 Procedure CYSTOSCOPY RETROGRADE CYSTOSCOPY RETROGRADE CYSTOSCOPY RETROGRADE STENT INSERTION(Left) STENT INSERTION(Left) STENT INSERTION(Left) Comments DR. ORO SUPERVISING Last Modified By: Neris RN, Lima Quan RN, Lima Quan RN, Lima Boo 02/19/25 Thelma P 02/19/25 Thelma P 02/19/25 13:57:49 13:57:49 13:57:49 Entry 4 Entry 5 Entry 6 Case Attendee Reid SIMMONS, Shagufta WESTBROOK, Adelina Bermudez, Jyoti Guidry Role Performed Scrub - Primary Staff - Other Roster Clerk Time In 02/19/25 12:32:00 02/19/25 12:32:00 02/19/25 12:32:00 Time Out 02/19/25 12:55:00 02/19/25 12:55:00 02/19/25 12:55:00 Procedure CYSTOSCOPY RETROGRADE CYSTOSCOPY RETROGRADE CYSTOSCOPY RETROGRADE STENT INSERTION(Left) STENT INSERTION(Left) STENT INSERTION(Left) Comments HELPING IN ROOM Last Modified By: Neris RN, Lima Quan RN, Lima Quan RN, Lima Boo 02/19/25 Thelma P 02/19/25 Thelma P 02/19/25 13:57:49 13:57:49 13:57:49 General Comments: AJAY BULLARD PRESENT FOR CASE -VSandra QUAN RNbalance assembler Protocols FT Pre-Care Text: Implements protective measures prior to operative or invasive procedure, confirms identity before the operative or invasive procedure, verifies operative procedure, surgical site, and laterality Entry 1 Procedure(s) CYSTOSCOPY RETROGRADE Patient Identity Birthday, ID Band STENT INSERTION(Left) Verified (select at Check, Patient least 2): Participation Consents / H and P Anesthesia Consent, Operative Site Present Verified H&P, Surgery/Procedure Marking Verified Consent Surgical Site Yes Laterality Verified Yes Verified Procedure Verified Yes Correct Patient Yes Position Verified Availability Equipment, Implant, Prep Dry n/a Verified (If Medication, X-ray Applicable) PreOp Antibiotic Yes Time Out ARMANI CORONEL, Given Participants Myron RESENDIZ CRNA, Paul A., Neris SLAUGHTER, Reid Rizo CST, Stephanie L, Weisbrod RNFA, Molly A Time Out Complete 02/19/25 12:43:00 Outcomes Met? Yes Last Modified By: Lima Quan RN 02/19/25 13:37:24 Post-Care Text: The patient is free from signs and symptoms of injury caused by extraneous objects Allergy Information FT Pre-Care Text: Verifies allergies Entry 1 Allergies Reviewed? Yes Allergies Reviewed Self/Patient With Outcomes Met? Yes Last Modified By: Lima Quan RN 02/19/25 12:49:57 Post-Care Text: The patient received appropriate medication(s) safely administered during the perioperative period Surgical Procedures FT Entry 1 Procedure Description Procedure CYSTOSCOPY RETROGRADE Modifiers Left STENT INSERTION Surgeon Description CYSTOSCOPY, LEFT URETEROSCOPY, LEFT URETERAL STENT PLACEMENT Primary Procedure Yes Primary Surgeon ARMANI CORONEL, ASTRID Start 02/19/25 12:43:00 Stop 02/19/25 12:50:00 Anesthesia Type General Surgical Service Anesthesia Wound Class 2 - Clean-Contaminated Last Modified By: Lima Quan RN 02/19/25 13:37:30 General Case Data FT Pre-Care Text: Classifies surgical wound, implements aseptic technique, initiates traffic control Entry 1 Case Information OR OR 1 FT Case Level Level 3 Wound Class 2 - Clean-Contaminated Specialty Anesthesia ASA Class 3 Preop Diagnosis LEFT URETERAL STONE Postop Same As Preop Yes Postop Diagnosis LEFT URETERAL STONE Outcomes Met? Yes Last Modified By: Neris SLAUGHTER, Lima Renee Ema 02/19/25 13:37:37 Post-Care Text: The patient is free from signs and symptoms of infection Skin Assessment (Pre Procedure) FT Pre-Care Text: Implements protective measures to prevent skin/ tissue injury due to thermal or mechanical sources Evaluates for signs and symptoms of physical injury to skin and tissue Entry 1 Skin Integrity Intact, Wanship, Warm, & Skin Abnormality No Dry Outcomes Met? Yes Last Modified B (more content not included)... Normal [facility] Capillary Glucose POCon 01-23 Glucose [Mass/Vol] 176 mg/dL High 55-99 [facility] Comment on above: Result Comment: Dayanara alcantar RN/ Performed By: #### 2 [id number] ####[facility] [address] [place] [address] Discharge Instructionson Discharge Instructions Discharge Instructions BRIAN TSE :1980 Visit Date:02/19/2025 Inpatient Discharge Instructions Your Care Team Admitting Physician - ASTRID TOVAR MD Referring Physician - ASTRID TOVAR MD Reason for Your Visit LEFT URETERAL STONE What to do next Instructions From Your Doctor Event Name Event Result Discharge Instructions Freetext Hydrate w/ at least 2L/day. Pain control w/ tylenol. Take toradol for breakthrough. Flomax, pyridium for stent discomfort. F/U in 1-2 weeks for cysto, stent removal in office. 6 wks w/ JERMAINE, KUB Discharge Activity Resume normal activities in 24 hours, Arrange for a responsible adult supervision for 24 hours, Expect mild pain, Expect minimal amount of drainage and/or bleeding, Activity as tolerated Discharge Restrictions Do not operate machinery or tools, Do not make important decisions for 24 hours Discharge Diet(s) Regular Call Your Doctor For Temperature above 101.5 degrees, Redness, swelling, or pus at operative site, Severe pain at the operative site, Persistent vomiting Discharge Instructions Discharge Instructions New Follow Up Appointments after Discharge Follow Up with ASTRID TOVAR When: Comments: 1-2 wks for cysto stent removal in office Medications What How Much When Instructions Next Dose New ketorolac (ketorolac 10 mg Tab) 1 Tablets By Mouth Every 4 hours as needed for for pain Duration: 5 Days Pickup at [facility] #[id number] New phenazopyridine (Pyridium 100 mg Tab) 1 Tablets By Mouth 3 times a day Duration: 3 Days Pickup at [facility]/pharmacy #6177 New tamsulosin (Flomax 0.4 mg Cap) 1 Capsules By Mouth Every day [facility] Unchanged glyBURIDE (GlyBURIDE (Eqv-Micronase) 5 mg oral tablet) 1 Tablets By Mouth 2 times a day [id number] [address], [place] [id number] [phone] [employer] [facility] [place], [place] Dr. Ye Pardo Post-operative Instructions for Ureteroscopy, Laser Lithotripsy, Stone Extraction and Stent Placement There are no incisions or dressings to be concerned with, as the procedure was performed inside the urinary system. For 24 hours after surgery: ??? No driving or operating machinery ??? Do not make important decisions ??? Do not consume alcohol, sleeping pills Stent Placement You may have a stent which spans the distance between your bladder and your kidney, allowing urine to pass through. It prevents blockage from swelling, kidney stones in ureter (tube connecting the kidney to the bladder), or scars. The presence of the stent may cause: ??? Back or side pain, especially with urination ??? Frequent or urgent urination ??? Bladder pressure or pain ??? Blood in urine You may pass stone debris or small blood clots, which is expected. Drinking plenty of water to dilute the urine may help. If there is a thread coming out of urinary channel, be careful not to accidently pull on this, as it is attached to the stent. The stent will most likely be removed in the office during a short procedure in which a scope is placed into the bladder, the stent is grasped and removed. At other times the stent may need to stay longer, either in preparation for other procedures or for other reasons. If it is to remain prison, however, changes of the stent are required (about every 3-4 months). Diet You may resume your normal diet, but you may want to start slowly and avoid spicy food, caffeine, carbonated beverages and alcohol, especially if you have a stent. Your diet and fluid intake may make irritation from the stent worse. Activity You may resume your normal activities, although you should take it easy on the day of the procedure. Minimizing activity may decrease the back discomfort and irritation from the stent, if present. Medications ??? You may resume your home medications unless instructed otherwise. ??? Hold aspirin, ibuprofen, Coumadin (warfarin) and other blood thinners until your office visit (we will discuss when to resume these medications) ??? Take your prescribed medications as directed, including your antibiotics. You may also be given a prescription for pain medicine or medicines to help with the bladder irritation from stent, if present. Things to watch for which would require an Emergency Room Visit (or call 911) (This is not a complete list) ??? Fever over 101.5 degrees, with or without chills ??? Severe bleeding ??? Severe drug reactions with itching, hives, rash, or severe flank pain ??? Tenderness or swelling or the calves, chest pain, or shortness of breath Please call the office to arrange for your post-operative appointment (with XRAY) [phone] Common Emergency Awareness Tips IS IT A STROKE? Act FAS (more content not included)... Normal [facility] Comment on above: Result Comment: Elec tronically Signed By: Raissa Díaz\.br\Date and Time Signed: 02/19/25 12:59 EDT Inpatient Patient Summaryon 02-19-2025 Inpatient Patient Summary Inpatient Patient Summary [place] [id number] [facility] Clinical Discharge Instructions PERSON INFORMATION Name: BRIAN TSE PHYSICIANS Admitting Physician: ASTRID TOVAR MD Attending Physician: ASTRID TOVAR MD PCP: COMPA WAITE Discharge Diagnosis: Comment: PATIENT EDUCATION INFORMATION Instructions: Rumd-Rhgl-ke Utereroscopy,Lithotrips y, Stone Extraction, Stent Placement (CUSTOM); Post Op Patient Instructions - FT (CUSTOM) Medication Leaflets: Follow up: With: Address: When: ASTRID TOVAR Comments: 1-2 wks for cysto stent removal in office MEDICATION LIST New Medications [id number], [address], [place] [id number], [phone] ketorolac (ketorolac 10 mg Tab) 1 Tablets By Mouth every 4 hours as needed for pain for 5 Days. Refills: 0. phenazopyridine (Pyridium 100 mg Tab) 1 Tablets By Mouth 3 times a day for 3 Days. Refills: 0. tamsulosin (Flomax 0.4 mg Cap) 1 Capsules By Mouth every day. Refills: 0. Medications to Continue with No Changes Other Medications glyBURIDE (GlyBURIDE (Eqv-Micronase) 5 mg oral tablet) 1 Tablets By Mouth 2 times a day. Comment: Celina [facility] Main OR PACU I Recordon 01-23 Main OR PACU I Record Main OR PACU I Record PACU Phase I Document Type FT Summary Primary Physician: ASTRID TOVAR MD Finalized Date/Time: 02/19/25 14:29:42 Pt. Name: BRIAN TSE/Sex: 1980 Male Med Rec #: [id number] Physician: ASTRID TOVAR MD Financial #: [id number] Pt. Type: A Room/Bed: [place] [address] Admit/Disch: 02/19/25 10:20:10 - Institution: Case Times PACU I FT [...] to medications Entry 1 In PACU I 02/19/25 12:56:00 Discharge from PACU 02/19/25 13:26:00 I Outcomes Met? Yes Last Modified By: Erlinda Lagunas RN 02/19/25 14:29:26 Post-Care Text: The patient demonstrates knowledge of [...] PACU I FT Entry 1 Start Time 02/19/25 12:56:00 Stop Time 02/19/25 13:26:00 Acuity Level Acuity Level I Last Modified By: Erlinda Lagunas RN 02/19/25 14:29:39 Finalized By: Erlinda Lagunas RN Document Signatures Signed By: Erlinda Lagunas RN 02/19/25 14:29 [facility] Main OR PACU II Recordon Main OR PACU II Record Main OR PACU II Record PACU Phase II Document Type FT Summary Primary Physician: ASTRID TOVAR MD Finalized Date/Time: 02/19/25 14:54:58 Pt. Name: BRIAN TSE/Sex: 1980 Male Med Rec #: [id number] Physician: ASTRID TOVAR MD Financial #: [id number] Pt. Type: A Room/Bed: [facility] Admit/Disch: 02/19/25 10:20:10 - Institution: Case Times PACU II FT [...] to medications Entry 1 In PACU II 02/19/25 13:30:00 Discharge from PACU 02/19/25 14:50:00 II Outcomes Met? Yes Last Modified By: Raissa Díaz 02/19/25 14:54:57 Post-Care Text: The patient demonstrates knowledge of [...] administered during the perioperative period Finalized By: Raissa Díaz Document Signatures Signed By: Raissa Díaz 02/19/25 14:54 Normal [facility] Operative Reporton 5 Operative Report Operative Report Patient: BRIAN TSE Age: 44 years Sex: Male : 1980 Associated Diagnoses: None Author: ASTRID TOVAR MD Procedure SURGEON: Astrid Tovar MD PREOPERATIVE DIAGNOSIS: Left obstructing distal ureteral stone POSTOPERATIVE DIAGNOSIS: Same PROCEDURE: Cystoscopy, left ureteroscopy, left ureteral stent placement FINDINGS: Ureteroscopy did not demonstrate any stone fragment in ureter ANESTHESIA: General INTRAVENOUS FLUIDS: See anesthesia record ESTIMATED BLOOD LOSS: 0cc TUBES AND DRAINS: 6 x 26 cm double-J ureteral stent SPECIMENS: None COMPLICATIONS: None INDICATIONS FOR PROCEDURE: Patient is a 44-year-old male with a left distal ureteral stone presenting for the aforementioned procedure. H&P was reviewed, informed consent was obtained, patient understood risk, benefits, alternatives to the procedure and wished to proceed. OPERATIVE DETAIL: Patient was brought to the operative suite, pulse oximetry and cardiac monitoring by anesthesia was initiated. He was then placed in the dorsolithotomy position and prepped and draped in normal sterile fashion. Timeout was performed confirming patient, procedure, site, all in the room agreed. A well-lubricated 22 Lithuanian cystoscopic sheath with a 30 degree lens was inserted to urethral meatus and advanced into the bladder. We then directed our attention to the left ureteral orifice which we cannulated with a Glidewire. We then passed the dual-lumen passing a second wire and over the wire went up with a semirigid scope to the distal ureter. We then traveled all the way to the proximal ureter and the on the renal pelvis. We did not visualize any stone. The scope was then removed without incident and on over the remaining wire we placed a 6 x 26 cm double-J ureteral stent visualizing a curl in the renal pelvis and a curl in the bladder. Patient bladder was then emptied. Patient was then awakened by anesthesia and transferred to PACU in stable condition. PLAN: F/U in 1 to 2 weeks for cystoscopy, left ureteral stent removal in the office [facility] Comment on above: Result Comment: Elec tronically Signed By: ARMANI CORONEL, ASTRID\.br\Date and Time Signed: 02/19/25 13:15 EDT Outpatient Surgery Discharge Instructionon 02-19-2025 Outpatient Surgery Discharge Instruction Outpatient Surgery Discharge Instruction [place] [id number] Patient Discharge Instructions PERSON INFORMATION Name: BRIAN TSE Date of : 1980 Current Date: 02/19/2025 12:56:35 PHYSICIANS Admitting Physician: ARMANI CORONEL, ASTRID Discharge Diagnosis: BRIAN TSE has been given the following list of follow-up instructions, prescriptions, and patient education materials: PATIENT FOLLOW-UP INFORMATION Diet: Regular Discharge Activity: Resume normal activities in 24 hours, Arrange for a responsible adult supervision for 24 hours, Expect mild pain, Expect minimal amount of drainage and/or bleeding, Activity as tolerated Discharge Restrictions: Do not operate machinery or tools, Do not make important decisions for 24 hours Call Your Doctor For: Temperature above 101.5 degrees, Redness, swelling, or pus at operative site, Severe pain at the operative site, Persistent vomiting Additional Instructions: Hydrate w/ at least 2L/day Pain control w/ tylenol. Take toradol for breakthrough Flomax, pyridium for stent discomfort F/U in 1-2 weeks for cysto, stent removal in office 6 wks w/ JERMAINE, KUB IF UNABLE TO CONTACT YOUR PHYSICIAN AND YOU FEEL IT IS AN EMERGENCY, GO TO THE NEAREST EMERGENCY ROOM OR CALL 911 I, BRIAN TSE, have received the attached patient education materials/instructions and have verbalized understanding: May we do a follow up call? Yes No I was present when discharge instructions were given Patient Signature Date Clinican/Nurse Signature _ Date Follow up: With: Address: When: ASTRID RUBINFranciscoBERHANEDEB Comments: 1-2 wks for cysto stent removal in office Pharmacy Information: You may receive a survey from [employer] [employer] asking you to rate your care experience. Your feedback is important and will help us understand what we do well and how we can improve the quality of care we provide to you, your loved ones and our community. It???s an honor to serve you. Thank you for choosing [facility] HERE ARE THE MEDICATION CHANGES THAT OCCURRED DURING YOUR HOSPITAL STAY New Medications [id number], [address], [place] [id number], [phone] ketorolac (ketorolac 10 mg Tab) 1 Tablets By Mouth every 4 hours as needed for pain for 5 Days. Refills: 0. phenazopyridine (Pyridium 100 mg Tab) 1 Tablets By Mouth 3 times a day for 3 Days. Refills: 0. tamsulosin (Flomax 0.4 mg Cap) 1 Capsules By Mouth every day. Refills: 0. Medications to Continue with No Changes Other Medications glyBURIDE (GlyBURIDE (Eqv-Micronase) 5 mg oral tablet) 1 Tablets By Mouth 2 times a day. PATIENT EDUCATION INFORMATION Instructions: [facility] [place], [place] Dr. Ye Pardo Post-operative Instructions for Ureteroscopy, Laser Lithotripsy, Stone Extraction and Stent Placement There are no incisions or dressings to be concerned with, as the procedure was performed inside the urinary system. For 24 hours after surgery: ??? No driving or operating machinery ??? Do not make important decisions ??? Do not consume alcohol, sleeping pills Stent Placement You may have a stent which spans the distance between your bladder and your kidney, allowing urine to pass through. It prevents blockage from swelling, kidney stones in ureter (tube connecting the kidney to the bladder), or scars. The presence of the stent may cause: ??? Back or side pain, especially with urination ??? Frequent or urgent urination ??? Bladder pressure or pain ??? Blood in urine You may pass stone debris or small blood clots, which is expected. Drinking plenty of water to dilute the urine may help. If there is a thread coming out of urinary channel, be careful not to accidently pull on this, as it is attached to the stent. The stent will most likely be removed in the office during a short procedure in which a scope is placed into the bladder, the stent is grasped and removed. At other times the stent may need to stay longer, either in preparation for other procedures or for other reasons. 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 Diet You may resume your normal diet, but you may want to start slowly and avoid spicy food, caffeine, carbonated beverages and alcohol, especially if you have a stent. Your diet and fluid intake may make irritation from the stent worse. Activity You may resume your normal activities, although you should take it easy on the day of the procedure. Minim (more content not included)... Normal [facility] Ambulatory Visit Summaryon 0 02-15-2025 Ambulatory Visit Summary Ambulatory Visit Summary BRIAN TSE :1980 Visit Date:02/15/2025 Ambulatory Visit Instructions Your Diagnosis Ureteral stone History of kidney stones Your Care Team Attending Physician - ASTRID TOVAR MD Primary Care Physician - SALBADOR HERNANDEZ [...] ingrown toenail. Discharge Vitals Heart Rate (Peripheral) 64 Blood Pressure 121/80 Height 178 cm Height 70 in Weight 100.2 kg Weight 220.903 lb BMI 31.62 What to do next Scheduled Follow-Up Appointments Tuesday 9:00 AM EDT Where: [facility] Tuesday 12:15 PM EDT Where: [facility] You Need to Schedule the Following Appointments Follow Up with ARMANI CORONEL, NAVIN RESENDIZ When: Comments: sched cysto, L URS, laser litho Where: Medications What How Much When Instructions Unchanged glyBURIDE (GlyBURIDE (Eqv-Micronase) 5 mg oral tablet) 1 Tablets By Mouth 2 times a day Contact prescribing physician if questions or concerns Allergies metFORMIN (Diarrhea) Problems Ongoing - Any problem that you are currently receiving treatment for. BMI 31.0-31.9,adult History of kidney stones Inguinal hernia Kidney stone Reducible left inguinal hernia Smoker Smoker Tobacco use Ureteral stone Historical - Any problem that you are no longer receiving treatment for. Candidal balano-posthitis DM (diabetes mellitus) Elevated liver enzymes Major depressive disorder, single episode Uncontrolled diabetes mellitus Patient Survey You may receive a survey via text or e-mail asking about your office visit. Please share your experience with us by completing your survey. We appreciate your feedback and thank you for choosing us for your care. Education Materials Kidney Stones Kidney stones are rock-like masses that form inside of the kidneys. Kidneys are organs that make pee (urine). A kidney stone may move into other parts of the urinary tract, including: ??? The tubes that connect the kidneys to the bladder (ureters). ??? The bladder. ??? The tube that carries urine out of the body (urethra). Kidney stones can cause very bad pain and can block the flow of pee. The stone usually leaves your body through your pee. A doctor may need to take out the stone. What are the causes? Kidney stones may be caused by: ??? Too much calcium in the body. This may be caused by too much parathyroid hormone in the blood. ??? Uric acid crystals in the bladder. The body makes uric acid when you eat certain foods. ??? Narrowing of one or both of the ureters. ??? A kidney blockage that you were born with. ??? Past surgery on the kidney or the ureters. What increases the risk? You are more likely to develop this condition if: ??? You have had a kidney stone in the past. ??? Other people in your family have had kidney stones. ??? You do not drink enough water. ??? You eat a diet that is high in protein, salt (sodium), or sugar. ??? You are very overweight (obese). What are the signs or symptoms? Symptoms of a kidney stone may include: ??? Pain in the side of the belly, right below the ribs. Pain usually spreads to the groin. ??? Needing to pee often or right away. ??? Pain when peeing. ??? Blood in your pee. ??? Feeling like you may vomit (nauseous). ??? Vomiting. ??? Fever and chills. How is this treated? Treatment depends on the size, location, and makeup of the kidney stones. The stones will often pass out of the body when you pee. You may need to: ??? Drink more fluid to help pass the stone. ? In some cases, you may be given fluids through an IV tube at the hospital. ??? Take medicine for pain. ??? Change your diet to help keep kidney stones from coming back. Sometimes, you may need: ??? A procedure to break up kidney stones using a beam of light (laser) or shock waves. ??? Surgery to remove the kidney stones. Follow these instructions at home: Medicines ??? Take ddvi-jzu-nzwrgzk and prescription medicines only as told by your doctor. ??? Ask your doctor if the medicine prescribed to you requires you to avoid driving or using machinery. Eating and drinking ??? Drink enough fluid to keep your pee pale yellow. ? You may be told to drink at least 8???10 glasses of water each day. This will help you pass the stone. ??? If told by your doct (more content not included)... Normal [facility] Urology Office/Clinic Noteon 02-15-2025 Urology Office/Clinic Note Urology Office/Clinic Note Chief Complaint Ureteral stone HPI Staff 44 year old male patient here for [facility] ER follow up 02/06/25. Sen for abd pain, hx of stones, presents with suprapubic pain and pain radiating to right testicle, hematuria. Imaging: CT abd/pelvis w/o con- 1-2 mm stone in L UVJ. S/P 10/26/22 right ESWL Patient denies any dysuria or gross hematuria. Denies any flank or abdomen pain. pain in scrotum 2 days ago History of Present Illness Tests reviewed: reviewed UA, ER notes & labs & imaging I have reviewed the previous health record information and history for this patient from Dr. Owen and external providers. I have reviewed and verified the staff HPI to be accurate for this encounter. Review of Systems PHQ Score Initial Depression Screen Score: 0 SCORE ROS - Provider Constitutional: denies weight loss, denies hot flashes. Eyes: denies eye problems. Gastrointestinal: denies nausea, denies vomiting. Cardiovascular: denies chest pain or angina. Integumentary: no dryness Musculoskeletal: denies musculoskeletal symptoms. ENMT: denies otolaryngeal symptoms. Respiratory: no shortness of breath. Heme/Lymph: denies easy bleeding tendency, denies easy bruising tendency. Psychiatric: no confusion, no anxiety. Genitourinary: See HPI. Physical Exam Vitals & Measurements HR: 64(Peripheral) BP: 121/80 HT: 178 cm HT: 70 in WT: 100.2 kg WT: 220.903 lb BMI: 31.62 General Appearance: alert, no distress, well nourished, well developed male. Assessment/Plan Brian is a 44 yo male new pt here for f/u to ER due to R UVJ stone. Prior Dr. Owen pt. PMH: DM, last A1c 7 per pt. IPSS 15. TAQUERIA 20. 1. Ureteral stone (N20.1: Calculus of ureter) [facility] ER 02/06/25 due to SP pain, pain radiating to testicle, and gross hematuria. Renal fxn - BUN 10, Cr 1.23, GFR >60. CT AP wo con - 1-2 mm stone at L UVJ. No hydro or renal stones. UA neg. Hematuria has subsided over the past two days but urine was a cola color per pt. Still having cramping in lower abdomen. Also experienced N&V. Has not noticed stone passage but admits he was not given a strainer or Flomax in the ER. Advised pt stone is likely still present given pain. Discussed management options including medical expulsive therapy x 4-6 week vs intervention including extracorporeal shockwave lithotripsy vs ureteroscopy with laser lithotripsy/stone basket extraction possible stent. Risks/benefits of each were discussed including but not limited to: MET- renal damage, pain or infection; ESWL- bleeding, hematoma, pain, infection, inability to break up the stone, ureteral obstruction, cardiac arrhythmias, damage to surrounding structures and need for additional procedures; ureteroscopy - bleeding, pain, infection, damage to surrounding structures, ureteral perforation, stricture, inability to treat the stone and need for additional procedures. If a stent is placed, pt understands this is not permanent and needs to be removed or exchanged within 3 months to prevent encrustation, infection, permanent renal damage and need for more invasive procedures. Pt elects to schedule R URS if he does not pass the stone prior. -Urine strainer provided -Adequate hydration -Will schedule a Cystoscopy with Left Retrogrades, Left Ureteroscopy, Left Laser Litho, Left Stone Basket, Left possible stent placement. The procedure risks, benefits, alternatives and complications have been discussed with the patient. These include but are not limited to bleeding, pain, infection, ureteral perforation, extravasation, stricture formation, sepsis, obstruction, inability to reach the stone, inability to fragment the stone, and inability to retrieve all stone fragments. The need for ancillary procedures such as stent placement and removal, retrograde urography, and percutaneous nephrostomy were also discussed. The patient also understood that a ureteral stent may be placed and removal of the stent is critical. Failure to follow up for stent removal can result in recurrent UTIs, encrustation of the stent, loss of kidney function and need for nephrectomy. All of their questions and concerns have been addressed. Full informed consent has been obtained. Will order General anesthesia. -Pt to call our office if he passes stone prior 2. History of kidney stones (Z87.442: Personal history of urinary calculi) S/p R ESWL 10/28/[address] Owen. Patient w/ a distal rl ureteral stone.Will proceed [facility] OR for cysto, L. URS, HLL, Stent placement. Risks, benefits, alternatives explained and patient consented for the aforementioned procedure Follow-up With When Contact Information ARMANI CORONEL, ASTRID, URL Additional Instructions: sched cysto, L URS, laser litho Patient Education Kidney Stones, Bhvf-hm-Lpdx ISoco, personally scribed for Dr. Tovar on 02/15/2025 10:51:17. . Portions of this record may have been created with voice recog (more content not included)... Normal [facility] Comment on above: Result Comment: Elec tronically Signed By: ASTRID TOVAR MD\.br\Date and Time Signed: 02/15/25 11:18 EDT\.br\Electronically Co-Signed By: Soco Rodriguez\.br\Date and Time Co-Signed: 02/15/25 10:54 EDT XR Foot - left 3 [facility] Result: Three views were taken today AP/MO/LAT foot: No fractures or dislocations seen excellent position alignment left foot great toe in good position trabeculation noted across the osteotomy osteotomy appears to be healed [facility] XR Foot - left 3 [facility] Radiology Study observation (narrative) [facility] XR Foot - left 3 [facility] Imaging Result: Three views were taken today AP/MO/LAT foot: No fractures or dislocations seen excellent position alignment left foot great toe in good position trabeculation noted across the osteotomy [facility] Radiology Study observation (narrative) [facility] XR Foot - left 3 [facility] Result: Three views were taken today AP/MO/LAT foot: No fractures or dislocations seen excellent position alignment left foot great toe in good position K-wire is migrating slightly [facility] Radiology Study observation (narrative) [facility] XR Foot - left 3 [facility] Result: Radiographs: AP/MO/LAT: fixation intact excellent position alignment of the lesser digits. [facility] Radiology Study observation (narrative) [facility] ALL CBC WITH AUTO DIFFon BASOPHILS ABSOLUTE AUTO 0.1 [facility] Basophils/100 WBC (Bld) 0.6 % 0.2 - 2.0 % [facility] Eosinophils/100 WBC (Bld) 2.6 % 0.9 - 7.0 % [facility] Erythrocyte distribution width (RBC) [Ratio] 13.8 % 11.0 - 15.0 % [facility] Hematocrit (Bld) [Volume fraction] 45.8 % 42.0 - 54.0 % [facility] Hemoglobin (Bld) [Mass/Vol] 15.5 g/dL 14.0 - 18.0 g/dL [facility] IMMATURE GRANULOCYTES ABS AUTO 0.03 [facility] Immature granulocytes/100 WBC (Bld) 0.3 % 0.0 - 0.5 % [facility] LYMPHOCYTES ABSOLUTE AUTO 3.1 [facility] Lymphocytes/100 WBC (Bld) 29.9 % 20.5 - 60.0 % [facility] MCH (RBC) [Entitic mass] 30 pg 25.9 - 34.0 pg [facility] MCHC (RBC) [Mass/Vol] 33.8 g/dL 29.9 - 35.2 g/dL [facility] MCV (RBC) [Entitic vol] 88.6 fL 80.0 - 94.0 fL [facility] MONOCYTES ABSOLUTE AUTO 0.8 [facility] Monocytes/100 WBC (Bld) 7.3 % 1.7 - 12.0 % [facility] NEUTROPHILS ABSOLUTE AUTO 6.1 [facility] Neutrophils/100 WBC (Bld) 59.3 % 43.0 - 75.0 % [facility] Platelet mean volume (Bld) [Entitic vol] 11.3 fL 9.5 - 13.5 fL [facility] TBH EO # 0.3 [facility]H PLT 240 [facility] TB RBC 5.17 [facility] WBC 10.3 [facility] ECG 12-LEADon 10-23-2024 [place] [address] Electrocardiograph Report Signed Patient: BRIAN TSE MR#: [id number] : 1980 Acct:[id number] Age/Sex: 43 / M ADM Date: 10/23/24 Loc: CARD Attending Dr: DON SANTOS M.D. Ordering Physician: DON SANTOS M.D. Date of Service: 10/23/24 Procedure(s): ECG 12 lead Accession Number(s): [id number] cc: [facility] Test Date: 2024-10-23 Pat Name: BRIAN TSE Department: Room: - Gender: Male [employer] Set Up Operator: : 1980 Requested By: 0719 Order Number: [id number] Reading MD: FABI DEAN M.D. Measurements Intervals [place] Rate: 69 P: 55 DC: 155 QRS: 47 QRSD: 90 T: 27 QT: 376 QTc: 404 Interpretive Statements SINUS RHYTHM NONSPECIFIC T-WAVE ABNORMALITY Abnormal ECG Compared to ECG 10/28/2022 08:45:49 T-wave abnormality now present Electronically Signed On 10-23-2024 20:15:41 EDT by FABI DEAN M.D. Dictated By: FABI DEAN Signed By: 10/23/24201410/23/242014 DD/ 1029 TD/TT: City Controller: [facility] Radiology, Radiologi MD gay - 10/23/2024 [place] [address] Electrocardiograph Report Signed Patient: BRIAN TSE MR#: [id number] : 1980 Acct:[id number] Age/Sex: 43 / M ADM Date: 10/23/24 Loc: CARD Attending Dr: DON SANTOS M.D. Ordering Physician: DON SANTOS M.D. Date of Service: 10/23/24 Procedure(s): ECG 12 lead Accession Number(s): [id number] cc: [facility] Test Date: 2024-10-23 Pat Name: BRIAN TSE Department: Room: - Gender: Male [employer] Set Up Operator: : 1980 Requested By: 0719 Order Number: [id number] Reading MD: FABI DAEN M.D. Measurements Intervals [place] Rate: 69 P: 55 DC: 155 QRS: 47 QRSD: 90 T: 27 QT: 376 QTc: 404 Interpretive Statements SINUS RHYTHM NONSPECIFIC T-WAVE ABNORMALITY Abnormal ECG Compared to ECG 10/28/2022 08:45:49 T-wave abnormality now present Electronically Signed On 10-23-2024 20:15:41 EDT by FABI DEAN M.D. Dictated By: FABI DEAN Signed By: 10/23/24201410/23/242014 DD/ 102 TD/TT: City Controller: [facility] Radiology Study observation (narrative) [facility] ECG 12-LEADOrdered By: Radio logist Radiology on 10-23-2024 [facility] Work Phone: CBC AND AUTO DIFFon 09-26-19 ABSOLUTE BASOPHIL 0.1 X10E9/L Normal 0.0-0.2 [facility] Comment on above: Performed By: #### T HYR, CMP, 2132-03, 90818-4, CBCA, 82085-2, HA1C, #### [facility] ([id number]) [address], [address] [place] [address] Basophils/100 WBC (Bld) 1.0 % Normal [facility] Comment on above: Performed By: #### T HYR, CMP, 2132-03, 19869-4, CBCA, 36012-6, HA1C, 27610-8 #### [facility] ([id number]) [address], [address] [place] [address] Eosinophils (Bld) [#/Vol] 0.3 10*3/uL Normal 0.0-0.4 [facility] Comment on above: Performed By: #### T HYR, CMP, 2132-03, 52676-2, CBCA, 48710-4, HA1C, 05191-1 #### [facility] ([id number]) [address], [address] [place] [address] Eosinophils/100 WBC (Bld) 3.0 % Normal [facility] Comment on above: Performed By: #### T HYR, CMP, 2132-03, 52715-9, CBCA, 12000-5, HA1C, 70803-1 #### [facility] ([id number]) [address], [address] [place] [address] Erythrocyte distribution width (RBC) [Ratio] 14.4 % Normal 11.5-15.0 [facility] Comment on above: Performed By: #### T HYR, CMP, 2132-03, , CBCA, 20063-5, HA1C, #### [facility] ([id number]) [address], [address] [place] [address] Hematocrit (Bld) [Volume fraction] 49.5 % High 39-49 [facility] Comment on above: Performed By: #### T HYR, CMP, 2132-03, , CBCA, 70366-9, HA1C, #### [facility] ([id number]) [address] [place] [address] Hemoglobin (Bld) [Mass/Vol] 16.9 g/dL Normal 13.0-17.0 [facility] Comment on above: Performed By: #### T HYR, CMP, 2132-03, , CBCA, 01197-3, HA1C, #### [facility] ([id number]) [address] [address] [place] [address] LYMPHOCYTE, ATYPICAL 4.0 % Normal [facility] Comment on above: Performed By: #### T HYR, CMP, 2132-03, , CBCA, 13320-9, HA1C, #### [facility] ([id number]) [address] [place] [address] Lymphocytes (Bld) [#/Vol] 2.5 10*3/uL Normal 1.0-3.5 [facility] Comment on above: Performed By: #### T HYR, CMP, 2132-03, , CBCA, 69479-5, HA1C, #### [facility] ([id number]) [address] [address] [place] [address] Lymphocytes/100 WBC (Bld) 20.0 % Normal [facility] Comment on above: Performed By: #### T HYR, CMP, 2132-03, 03850-5, CBCA, 09612-4, HA1C, #### [facility] ([id number]) [address], [address] [place] [address] MCH (RBC) [Entitic mass] 30.1 pg Normal 27-34 [facility] Comment on above: Performed By: #### T HYR, CMP, 2132-03, , CBCA, 76039-8, HA1C, #### [facility] ([id number]) [address], [address] [place] [address] MCHC (RBC) [Mass/Vol] 34.1 g/dL Normal 32-36 [facility] Comment on above: Performed By: #### T HYR, CMP, 2132-03, , CBCA, 43278-5, HA1C, #### [facility] ([id number]) [address], [facility] [address] [place] [address] MCV (RBC) [Entitic vol] 88 fL Normal 80-100 [facility] Comment on above: Performed By: #### T HYR, CMP, 2132-03, , CBCA, 32260-1, HA1C, #### [facility] ([id number]) [address] [address] Monocytes (Bld) [#/Vol] 0.7 10*3/uL Normal 0-0.9 [facility] Comment on above: Performed By: #### T HYR, CMP, 2132-03, , CBCA, 08455-5, HA1C, #### [facility] ([id number]) [address], [address] [place] [address] Monocytes/100 WBC (Bld) 7.0 % Normal [facility] Comment on above: Performed By: #### T HYR, CMP, 2132-03, 97956-4, CBCA, 56199-6, HA1C, #### [facility] ([id number]) [address] [place] [address] Neutrophils (Bld) [#/Vol] 6.8 10*3/uL High 1.5-6.6 [facility] Comment on above: Performed By: #### T HYR, CMP, 2132-03, 12493-5, CBCA, 27201-5, HA1C, #### [facility] ([id number]) [address], [address] [place] [address] Platelet mean volume (Bld) [Entitic vol] 9.6 fL Normal 7-12 [facility] Comment on above: Performed By: #### T HYR, CMP, 2132-03, , CBCA, 54030-3, HA1C, #### [facility] ([id number]) [address], [address] [place] [address] Platelets (Bld) [#/Vol] 223 10*3/uL Normal 150-450 [facility] Comment on above: Performed By: #### T HYR, CMP, 2132-03, 15195-0, CBCA, 86480-7, HA1C, #### [facility] ([id number]) [address], [address] [place] [address] RBC COUNT 5.62 X10E12/L Normal 4.10-5.70 [facility] Comment on above: Performed By: #### T HYR, CMP, 2132-03, 44319-5, CBCA, 46573-1, HA1C, #### [facility] ([id number]) [address], [address] [place] [address] RBC morphology finding Nom (Bld) NORMAL Normal [facility] Comment on above: Performed By: #### T HYR, CMP, 2132-03, 15278-2, CBCA, 48589-0, HA1C, 90704-4 #### [facility] ([id number]) [address], [address] [place] [address] SEG NEUTROPHIL 65.0 % Normal [facility] Comment on above: Performed By: #### T HYR, CMP, 2132-03, , CBCA, 23561-9, HA1C, #### [facility] ([id number]) [address], [address] [place] [address] WBC (Bld) [#/Vol] 10.4 10*3/uL Normal 4.0-11.0 [facility] Comment on above: Performed By: #### T HYR, CMP, 2132-03, , CBCA, 26345-4, HA1C, #### [facility] ([id number]) [address], [address] [place] [address] COMPREHENSIVE METABOLIC PANE Roalnd 09-25-2024 Albumin [Mass/Vol] 4.7 g/dL Normal 3.2-5.3 [facility] Comment on above: Performed By: #### T HYR, CMP, 2132-03, 41113-4, CBCA, 66193-6, HA1C, #### [facility] ([id number]) [address], [address] [place] [address] ALP [Catalytic activity/Vol] 77 U/L Normal 39-130 [facility] Comment on above: Performed By: #### T HYR, CMP, 2132-03, 45446-9, CBCA, 39644-4, HA1C, #### [facility] ([id number]) [address], [address] [place] [address] ALT [Catalytic activity/Vol] 28 U/L Normal 0-40 [facility] Comment on above: Performed By: #### T HYR, CMP, 2132-03, 73692-7, CBCA, 02088-1, HA1C, #### [facility] ([id number]) [address] [place] [address] Anion gap [Moles/Vol] 12 mmol/L Normal 5-15 [facility] Comment on above: Performed By: #### T HYR, CMP, 2132-03, 21329-1, CBCA, 43000-4, HA1C, #### [facility] ([id number]) [address] [place] [address] AST [Catalytic activity/Vol] 23 U/L Normal 0-41 [facility] Comment on above: Performed By: #### T HYR, CMP, 2132-03, 38972-4, CBCA, 60644-1, HA1C, #### [facility] ([id number]) [address], [address] [place] [address] Bilirubin [Mass/Vol] 0.7 mg/dL Normal 0.3-1.2 [facility] Comment on above: Performed By: #### T HYR, CMP, 2132-03, 77740-7, CBCA, 26719-8, HA1C, 92551-0 #### [facility] ([id number]) [address], [address] [place] [address] Calcium [Mass/Vol] 9.5 mg/dL Normal 8.5-10.5 [facility] Comment on above: Performed By: #### T HYR, CMP, 2132-03, 97725-4, CBCA, 35063-8, HA1C, #### [facility] ([id number]) [address] [place] [address] Chloride [Moles/Vol] 102 mmol/L Normal 98-109 [facility] Comment on above: Performed By: #### T HYR, CMP, 2132-03, 66693-9, CBCA, 93873-1, HA1C, #### [facility] ([id number]) [address] [place] [address] CO2 [Moles/Vol] 23 mmol/L Normal 22-32 [facility] Comment on above: Performed By: #### T HYR, CMP, 2132-03, 52581-3, CBCA, 07250-6, HA1C, #### [facility] ([id number]) [address] [place] [address] Creatinine [Mass/Vol] 1.06 mg/dL Normal 0.60-1.30 [facility] Comment on above: Result Comment: METH OD TRACEABLE TO IDMS STANDARD Performed By: #### T HYR, CMP, 2132-03, 10298-8, CBCA, 45755-3, HA1C, 17097-6 #### [facility] ([id number]) [address] [address] GFR/1.73 sq M.predicted among non-blacks MDRD (S/P/Bld) [Vol rate/Area] 90 mL/min/{1.73_m2} Normal >59 [facility] Comment on above: Result Comment: Reported eGFR is based on the CKD-EPI 2020 equation that does not use a race coefficient. Performed By: #### T HYR, CMP, 2131-9, 42724-2, CBCA, 10531-5, HA1C, #### [facility] ([id number]) [address], [address] [place] [address] Glucose [Mass/Vol] 241 mg/dL High 65-99 [facility] Comment on above: Performed By: #### T HYR, CMP, 2132-03, 11983-0, CBCA, 86088-1, HA1C, #### [facility] ([id number]) [address], [address] [place] [address] Potassium [Moles/Vol] 4.2 mmol/L Normal 3.5-5.0 [facility] Comment on above: Performed By: #### T HYR, CMP, 2132-03, 46834-7, CBCA, 84161-1, HA1C, #### [facility] ([id number]) [address] [place] [address] Protein [Mass/Vol] 8.5 g/dL High 6.0-8.0 [facility] Comment on above: Performed By: #### T HYR, CMP, 2132-03, 89885-9, CBCA, 97925-4, HA1C, #### [facility] ([id number]) [address], [address] [place] [address] Sodium [Moles/Vol] 137 mmol/L Normal 134-146 [facility] Comment on above: Performed By: #### T HYR, CMP, 2132-03, 57007-5, CBCA, 55423-4, HA1C, #### [facility] ([id number]) [address] [place] [address] Urea nitrogen [Mass/Vol] 14 mg/dL Normal 5-23 [facility] Comment on above: Performed By: #### T HYR, CMP, 2132-03, 05108-0, CBCA, 26070-1, HA1C, #### [facility] ([id number]) [address], [address] [place] [address] HGB A1C (GLYCO-HGB)on 2024 Glucose [Mass/Vol] 183 mg/dL Normal [facility] Comment on above: Performed By: #### T HYR, CMP, 9, 95298-3, CBCA, 38471-0, HA1C, #### [facility] ([id number]) [address] [place] [address] HbA1c (Bld) [Mass fraction] 8.0 % High 4.4-5.6 [facility] Comment on above: Result Comment: NOTE ADA Guidelines Result HgbA1c Normal : less than 5.7 % Prediabetes : 5.7 % to 6.4 % Diabetes : > 6.4 % Use with caution in patients with abnormal hemoglobin variants as the half-life of red blood cells and in vivo glycation rates are affected. Performed By: #### T HYR, CMP, 9, 62279-4, CBCA, 55001-0, HA1C, 18185-3 #### [facility] ([id number]) [address] [place] [address] Lipid 1996 panelon 5 Cholesterol [Mass/Vol] 202 mg/dL High 150-200 [facility] Comment on above: Performed By: #### T HYR, CMP, 9, 99183-9, CBCA, 84625-4, HA1C, #### [facility] ([id number]) [address] [place] [address] Cholesterol in HDL [Mass/Vol] 39 mg/dL Low >39 [facility] Comment on above: Result Comment: HDL <40 mg/dL - High Risk HDL > or = 40mg/dL- Desirable HDL >60 mg/dL - Negative Risk Performed By: ###Daphnie T HYR, CMP, 2132-03, 55039-0, CBCA, 58819-0, HA1C, #### [facility] ([id number]) [address], [address] [place] [address] Cholesterol in LDL [Mass/Vol] 120 mg/dL Normal <130 [facility] Comment on above: Result Comment: LDL <100 mg/dL - Desirable LDL >160 mg/dL - High Risk Performed By: ###Daphnie T HYR, CMP, 2132-03, 91613-5, CBCA, 48643-1, HA1C, #### [facility] ([id number]) [address] [place] [address] Cholesterol in VLDL [Mass/Vol] 43 mg/dL High 0-30 [facility] Comment on above: Performed By: ###Daphnie RYANR, CMP, 2132-03, 50666-3, CBCA, 02199-5, HA1C, 85895-4 #### [facility] ([id number]) [address], [address] [place] [address] CHOLESTEROL:HDL 5.2 High 1.0-5.0 [facility] Comment on above: Performed By: ###Daphnie T HYR, CMP, 9, 70887-4, CBCA, 45679-1, HA1C, 08030-3 #### [facility] ([id number]) [address] [place] [address] Triglyceride [Mass/Vol] 214 mg/dL High 27-150 [facility] Comment on above: Performed By: #### T HYR, CMP, 2132-03, 84418-9, CBCA, 24796-1, HA1C, #### [facility] ([id number]) [address] [place] [address] MAGNESIUMon 09-25-2024 Magnesium [Mass/Vol] 2.3 mg/dL Normal 1.8-2.6 [facility] Comment on above: Performed By: #### T HYR, CMP, 2132-03, 73376-4, CBCA, 96406-9, HA1C, #### [facility] ([id number]) [address], [address] [place] [address] THYROID PROFILEon 09-25-2024 Free T4 [Mass/Vol] 0.82 ng/dL Normal 0.61-1.60 [facility] Comment on above: Performed By: #### T HYR, CMP, 2132-03, 66857-1, CBCA, 51794-6, HA1C, #### [facility] ([id number]) [address] [facility], [address] [place] [address] TSH 1.41 uIU/mL Normal 0.49-4.67 [facility] Comment on above: Performed By: #### T HYR, CMP, 2132-03, 31162-3, CBCA, 10313-9, HA1C, #### [facility] ([id number]) [address] [place] [address] VITAMIN B12on 09-25-2024 Cobalamin (Vitamin B12) [Mass/Vol] 232 pg/mL Normal 180-914 [facility] Comment on above: Performed By: #### T HYR, CMP, 2132-03, 61523-7, CBCA, 98312-9, HA1C, #### [facility] ([id number]) [address] [facility] [address] [place] [address] Vitamin D+Metabolites [Mass/ Vol]on 09-25-2024 VITAMIN D 25 HYD TOT 11.6 ng/mL Low 30-100 ProM [facility] Comment on above: Result Comment: Vitamin D status 25 [place] Vitamin D Deficiency <20 ng/mL Insufficiency 20-29 ng/mL Sufficiency 30-100 ng/mL Toxicity >100 ng/mL NOTE: A pediatric reference range has not been established by the mechanical maintenance worker of this kit. The [place] [employer] recommends a Vitamin D level of = or >20ng/mL in infants and children. Performed By: #### T HYR, CMP, 2132-9, 11358-4, CBCA, 75026-1, HA1C, 48287-3 #### [facility] ([id number]) [address] [facility] [facility] [place] [address] Glucose Poct Glucometerson 0 11-30-2022 Glucose [Mass/Vol] 155 mg/dL Normal [facility] Comment on above: Result Comment: [facility] Glucose Reference Range is dependent on time and content of last meal. Glucose of more than 200 mg/dL in a nonstressed, ambulatory subject supports the diagnosis of Diabetes Mellitus. PERFORMED BY: [facility] [address] [place] [address] PATHOLOGIST SUPERVISOR TOWER IGLESIA SANCHEZ M.D. Performed By: #### G STIVEN #### Point of Care testing , Roland 11-30-2022 L --- Specimen: [id number] Received: 11/30/22 Status: JAGDISH Garrison Num: [id number] Spec Type: Surgical Subm Dr: Edvin Colunga MD Tissues: A Colon Biopsy (ASCENDING POLYP) Procedures: HE/2, Gross/Micro L4 Age/ Patient Sex Location Account Attending Physician Brian Tse /[facility] [id number] Edvin Colunga MD SPEC NUM: [id number] RECD: 11/30/22 STATUS: JAGDISH GARRISON NUM: [id number] REINA: 11/30/22- [facility] DR: Edvin Colunga MD ENTERED: 11/30/22 [facility] DR: SPEC TYPE: Surgical DEPT: S ORDERED: [...] support the above pathologic diagnosis. CPT Codes 30064 Specimen: [id number] Received: 11/30/22 Status: JAGDISH Garrison Num: [id number] Spec Type: Surgical Subm Dr: Edvin Colunga MD Tissues: A Colon Biopsy (ASCENDING POLYP) Procedures: HE/2, Gross/Micro L4 Patient: Brian Tse [id number] (Continued) Signed (signature on file) Daily Quarles MD 12/01/22 1158 [facility] CBC AUTO DIFFon 10-28-2022 BASO # 0.1 103/ul Normal 0.0-0.1 [facility] Comment on above: Performed By: #### C BC #### [facility] [address] [address] [address] Yash Mckeon Basophils/100 WBC (Bld) 0.8 % Normal 0.2-2.0 [facility] Comment on above: Performed By: #### C BC #### [facility] [address] [address] [address] Yash Mckeon EO # 0.4 103/ul Normal 0.0-0.7 [facility] Comment on above: Performed By: #### C BC #### [facility] [address] [address] [address] Yash Mckeon Eosinophils/100 WBC (Bld) 3.3 % Normal 0.9-7.0 [facility] Comment on above: Performed By: #### C BC #### [facility] [address] [address] [address] Yash Mckeon Erythrocyte distribution width (RBC) [Ratio] 14.0 % Normal 11.0-15.0 [facility] Comment on above: Performed By: #### C BC #### [facility] [address] [address] [address] Yash Mckeon Hematocrit (Bld) [Volume fraction] 45.4 % Normal 42.0-54.0 [facility] Comment on above: Performed By: #### C BC #### [facility] [address] [address] [address] Yash Mckeon Hemoglobin (Bld) [Mass/Vol] 14.8 g/dL Normal 14.0-18.0 [facility] Comment on above: Performed By: #### C BC #### [facility] [address] [address] [address] Yash Mckeon IG # 0.04 10e3/ul Critically high 0.00-0.03 [facility] Comment on above: Performed By: #### C BC #### [facility] [address] [place] [address] Dr. Yash Mckeon IG % 0.4 % Normal 0.0-0.5 [facility] Comment on above: Performed By: #### C BC #### [facility] [address] [place] [address] Dr. Yash Mckeon LYMPH # 2.8 103/ul Normal 1.2-3.8 [facility] Comment on above: Performed By: #### C BC #### [facility] [address] [place] [address] Dr. Yash Mckeon Lymphocytes/100 WBC (Bld) 25.3 % Normal 20.5-60.0 [facility] Comment on above: Performed By: #### C BC #### [facility] [address] [place] [address] Dr. Yash Mckeon MANUAL DIFF REQ NO Normal [facility] Comment on above: Performed By: #### C BC #### [facility] [address] [place] [address] Dr. Yash Mckeon MCH (RBC) [Entitic mass] 28.6 pg Normal 25.9-34.0 [facility] Comment on above: Performed By: #### C BC #### [facility] [address] [place] [address] Dr. Yash Mckeon MCHC (RBC) [Mass/Vol] 32.6 g/dL Normal 29.9-35.2 [facility] Comment on above: Performed By: #### C BC #### [facility] [address] [place] [address] Dr. Yash Mckeon MCV (RBC) [Entitic vol] 87.8 fL Normal 80.0-94.0 [facility] Comment on above: Performed By: #### C BC #### [facility] [address] [place] [address] Dr. Yash Mckeon MONO # 1.0 103/ul Critically high 0.3-0.8 [facility] Comment on above: Performed By: #### C BC #### [facility] [address] [address] [address] Yash Mckeon Monocytes/100 WBC (Bld) 8.6 % Normal 1.7-12.0 [facility] Comment on above: Performed By: #### C BC #### [facility] [address] [address] [address] Yash Mckeon NEUT # 6.9 103/ul Critically high 1.4-6.5 [facility] Comment on above: Performed By: #### C BC #### [facility] [address] [address] [address] Yash Mckeon Neutrophils/100 WBC (Bld) 61.6 % Normal 43.0-75.0 [facility] Comment on above: Performed By: #### C BC #### [facility] [address] [place] [address] Dr. Yash Mckeon Platelet mean volume (Bld) [Entitic vol] 10.0 fL Normal 9.5-13.5 [facility] Comment on above: Performed By: #### C BC #### [facility] [address] [place] [address] Dr. Yash Mckeon PLT 250 103/ul Normal 150-450 [facility] Comment on above: Performed By: #### C BC #### [facility] [address] [place] [address] Dr. Yash Mckeon RBC 5.17 106/ul Normal 4.70-6.10 [facility] Comment on above: Performed By: #### C BC #### [facility] [address] [place] [address] Dr. Yash Mckeon WBC 11.2 103/ul Critically high 4.0-11.0 [facility] Comment on above: Performed By: #### C BC #### [facility] [address] [place] [address] Dr. Yash Mckeon POINT OF CARE GLUCOSEon 04-0 Glucose [Mass/Vol] 219 mg/dL Critically high 74-106 [facility] Comment on above: Performed By: #### P OCGLUC #### [facility] [address] [address] [address] Yash Mckeon PROF CHEM 8 (BAS METB)on Anion gap [Moles/Vol] 11.8 mmol/L Normal [facility] Comment on above: Performed By: #### B MP #### [facility] [address] [address] [address] Yash Mckeon Calcium [Mass/Vol] 8.6 mg/dL Normal 8.5-10.1 [facility] Comment on above: Performed By: #### B MP #### [facility] [address] [address] [address] Yash Mckeon Chloride [Moles/Vol] 101 mmol/L Normal 98-107 [facility] Comment on above: Performed By: #### B MP #### [facility] [address] [place] [address] Dr. Yash Mckeon CO2 [Moles/Vol] 28.0 mmol/L Normal 21.0-32.0 [facility] Comment on above: Performed By: #### B MP #### [facility] [address] [place] [address] Dr. Yash Mckeon Creatinine [Mass/Vol] 1.13 mg/dL Normal 0.70-1.30 [facility] Comment on above: Performed By: #### B MP #### [facility] [address] [place] [address] Dr. Yash Mckeon EGFR-AF BRUNEIAN >60 Normal >=60 [facility] Comment on above: Performed By: #### B MP #### [facility] [address] [place] [address] Dr. Yash Mckeon EGFR-NON AF BRUNEIAN >60 Normal >=60 [facility] Comment on above: Performed By: #### B MP #### [facility] [address] [place] [address] Dr. Yash Mckeon Glucose [Mass/Vol] 196 mg/dL Critically high 74-106 [facility] Comment on above: Performed By: #### B MP #### [facility] [address] [address] [address] Yash Mckeon Potassium [Moles/Vol] 3.8 mmol/L Normal 3.5-5.1 [facility] Comment on above: Performed By: #### B MP #### [facility] [address] [place] [address] Dr. Yash Mckeon Sodium [Moles/Vol] 137 mmol/L Normal 136-145 [facility] Comment on above: Performed By: #### B MP #### [facility] [address] [address] [address] Yash Mckeon Urea nitrogen [Mass/Vol] 14.0 mg/dL Normal 7.0-18.0 [facility] Comment on above: Performed By: #### B MP #### [facility] [address] [place] [address] Dr. Yash Mckeon Urea nitrogen/Creatinine [Mass ratio] 12.4 mg/mg Normal [facility] Comment on above: Performed By: #### B MP #### [facility] [address] [place] [address] Dr. Yash Mckeon PROTIMEon 10-28-2022 INR Coag (PPP) [Relative time] {INR} Normal [facility] Comment on above: Performed By: #### P OCGLUC #### [facility] [address] [place] [address] Dr. Yash Mckeon INR GUIDELINES SEE BELOW Normal [facility] Comment on above: Result Comment: ZAN RED INR: 2.0 - 3.0 CONDITIONS NOT LISTED BELOW 2.5 - 3.5 FOR PROSTHETIC HEART VALVE REPLACEMENT 2.5 - 3.5 RECURRENT THROMBOSIS Performed By: #### P OCGLUC #### [facility] [address] [place] [address] Dr. Yash Mckeon PT Coag (PPP) [Time] 9.8 s Normal 9.0-11.6 [facility] Comment on above: Performed By: #### P OCGLUC #### [facility] [address] [place] [address] Dr. Yash Mckeon PTTon 10-28-2022 aPTT Coag (Bld) [Time] 30.5 s Normal 22.3-36.2 [facility] Comment on above: Performed By: #### P OCGLUC #### [facility] [address] [place] [address] Dr. Yash Mckeon XR KUB 1 VIEWon [...] by: SABI FREEMAN Date: 2022-10-28 08:00 Normal [facility] XR KUB 1 VIEWon 10-25-2022 XR KUB [...] by: JUANITA DYKES Date: 2022-10-25 06:41 Normal [facility] XR ribs RT min 3V w CXR1V*on 10-21-2022 XR ribs RT min 3V w CXR1V* [facility] [place] [address] [place] [address] XRay Report Signed Patient: Brian Tse MR#: [id number] : 1980 Acct:[id number] Age/Sex: 41 / M ADM Date: 10/21/22 Loc: XDUCLY Room: Type: [facility] Attending Dr: Domonique Myers APRN Copies to: [...] Linda Sierra M.D.10/21/2022 2:10 PM Dictation Location: [place] [address] Transcribed By: [facility] 10/21/22 1410 Dictated By: Linda Sierra MD 10/21/22 1406 Signed By: 10/21/22 1410 [facility] CHEMISTRYOrdered By: Lab ROP User on 05-20-2022 Glucose [Mass/Vol] 173 mg/dL High 55 - 99 mg/dL [facility] POC Subsection Comment on above: Result Comment: Dayanara alcantar RN/ POC Device SN [id number] Invalid Interpretation Code [facility] POC Subsection POC User ID [id number] Invalid Interpretation Code [facility] POC Subsection POC Username CHINEDU POSADAS Invalid Interpretation Code [facility] POC Subsection CHEMISTRYOrdered By: SYSTEM SYSTEM on 05-13-2022 Anion gap [Moles/Vol] 15 mmol/L Normal 6 - 16 mEq/L [facility] Remisol Chloride [Moles/Vol] 102 mmol/L Normal 101 - 1 11 mmol/L [facility] Remisol CO2 [Moles/Vol] 22 mmol/L Normal 21 - 31 mmol/L [facility] Remisol Creatinine [Mass/Vol] 1.1 mg/dL Normal 0.5 - 1.3 mg/dL [facility] Remisol GFR/1.73 sq M.predicted among blacks MDRD (S/P/Bld) [Vol rate/Area] mL/min/1.73 m2 Normal >=59mL/min/1 .73 m2 [facility] Chem S GFR/1.73 sq M.predicted among non-blacks MDRD (S/P/Bld) [Vol rate/Area] mL/min/1.73 m2 Normal >=59mL/min/1 .73 m2 [facility] Chem S Glucose [Mass/Vol] 171 mg/dL Normal 55 - 199 mg/dL [facility] Potassium [Moles/Vol] 3.7 mmol/L Normal 3.5 - 5.3 mmol/L [facility] Sodium [Moles/Vol] 135 mmol/L Normal 135 - 145 mmol/L [facility] Urea nitrogen [Mass/Vol] 10 mg/dL Normal 5 - 21 mg/dL [facility] HEMATOLOGYOrdered By: Scarlett Nicholson on 05-13-2022 Erythrocyte distribution width (RBC) [Ratio] 13.9 % Normal 10.9 - 14.2 % [facility] Hematocrit (Bld) [Volume fraction] 47.7 % Normal 37.7 - 49.0 % [facility]eAutoSS Hemoglobin (Bld) [Mass/Vol] 16.5 g/dL Normal 13.5 - 17.5 gm/dL [facility] MCH (RBC) [Entitic mass] 29.3 pg Normal 27.0 - 34.0 pg [facility] MCHC (RBC) [Mass/Vol] 34.5 g/dL Normal 31.4 - 36.0 gm/dL [facility] MCV (RBC) [Entitic vol] 84.9 fL Normal 80.0 - 100.0 fL [facility] Platelet mean volume (Bld) [Entitic vol] 8.5 fL Normal 6.4 - 10.8 fL [facility] HemeAutoSS Platelets (Bld) [#/Vol] 210.0 E9/L Normal 150.0 - 500.0 E9/L [facility] RBC (Bld) [#/Vol] 5.6 E12/L Normal 4.3 - 5.9 E12/L [facility] HemeAutoSS WBC corrected for nucl RBC Auto (Bld) [#/Vol] 9.1 E9/L Normal 4.0 - 11.0 E9/L [facility] HemeAutoSS CALCULI, URINARYon 2 2,8 Dihydroxyadenine Normal [facility] Comment on above: Performed By: #### P OCGLUC #### [facility] [address] [place] [address] Dr. Yash Mckeon Ammonium Acid Urate Normal [facility] Comment on above: Performed By: #### P OCGLUC #### [facility] [address] [address] [address] Yash Mckeon Bilirubin Ql (U) [facility] Comment on above: Performed By: #### P OCGLUC #### [facility] [address] [address] [address] Yash Mckeon Ca Oxalate Dihydrate [facility] Comment on above: Performed By: #### P OCGLUC #### [facility] [address] [address] [address] Yash Mckeon CaHPO4 (Brushite) [facility] Comment on above: Performed By: #### P OCGLUC #### [facility] [address] [address] [address] Yash Mckeon Calcium Bilirubinate [facility] Comment on above: Performed By: #### P OCGLUC #### [facility] [address] [address] [address] Yash Mckeon Calcium Carbonate [facility] Comment on above: Performed By: #### P OCGLUC #### [facility] [address] [address] [address] Yash Mckeon Calcium Oxalate Monohydrate [facility] Comment on above: Performed By: #### P OCGLUC #### [facility] [address] [address] [address] Yash Mckeon Calcium Palmitate [facility] Comment on above: Performed By: #### P OCGLUC #### [facility] [address] [address] [address] Yash Mckeon Calcium Phosphate [facility] Comment on above: Performed By: #### P OCGLUC #### [facility] [address] [address] [address] Yash Mckeon Calcium Stearate [facility] Comment on above: Performed By: #### P OCGLUC #### [facility] [address] [address] [address] Yash Mckeon Carbonate Apatite [facility] Comment on above: Performed By: #### P OCGLUC #### [facility] [address] [address] [address] Yash Mckeon Cellular Material [facility] Comment on above: Performed By: #### P OCGLUC #### [facility] [address] [address] [address] Yash Mckeon Cholesterol [facility] Comment on above: Performed By: #### P OCGLUC #### [facility] [address] [address] [address] Yash Mckeon Color (U) [place] [facility] Comment on above: Performed By: #### P OCGLUC #### [facility] [address] [address] [address] Yash Mckeon Comment Comment Normal [facility] Comment on above: Result Comment: Lolly talline substances normally associated with human calculi were not identified. Specimen is consistent with organic material. Insufficient sample to perform additional, confirmatory, or reference testing. Performed By: #### P OCGLUC #### [facility] [address] [address] [address] Yash Mckeon Comment Normal [facility] Comment on above: Performed By: #### P OCGLUC #### [facility] [address] [address] [address] Yash Mckeon Comment: Comment Normal [facility] Comment on above: Result Comment: Diego gage questions regarding Calculi Analysis contact [facility] at: [phone]. Performed By: #### P OCGLUC #### [facility] [address] [address] [address] Yash Mckeon Composition Comment Normal [facility] Comment on above: Result Comment: Plea se see comment Performed By: #### P OCGLUC #### [facility] [address] [address] [address] Yash Mckeon Cystine [facility] Comment on above: Performed By: #### P OCGLUC #### [facility] [address] [address] [address] Yash Mckeon Disclaimer: Comment Normal [facility] Comment on above: Result Comment: This test was developed and its performance characteristics determined by [employer]. It has not been cleared or approved by the Food and Drug Administration. Performed By: #### P OCGLUC #### [facility] [address] [place] [address] Dr. Yash Mckeon Dried Blood Normal [facility] Comment on above: Performed By: #### P OCGLUC #### [facility] [address] [place] [address] Dr. Yash Mckeon Drug or Metabolite Normal [facility] Comment on above: Performed By: #### P OCGLUC #### [facility] [address] [place] [address] Dr. Yash Mckeon Hydroxyapatite [facility] Comment on above: Performed By: #### P OCGLUC #### [facility] [address] [place] [address] Dr. Yash Mckeon Mg NH4 PO4 (Struvite) [facility] Comment on above: Performed By: #### P OCGLUC #### [facility] [address] [place] [address] Dr. Yash Mckeon MgHPO4 (Newberyite) Normal [facility] Comment on above: Performed By: #### P OCGLUC #### [facility] [address] [place] [address] Dr. Yash Mckeon Other component(s) Normal [facility] Comment on above: Performed By: #### P OCGLUC #### [facility] [address] [place] [address] Dr. Yash Mckeon PDF . Normal [facility] Comment on above: Performed By: #### P OCGLUC #### [facility] [address] [place] [address] Dr. Yash Mckeon Photo TNP [facility] Comment on above: Result Comment: Test not performed No photo available Performed By: #### P OCGLUC #### [facility] [address] [place] [address] Dr. Yash Mckeon Please note: Comment Normal [facility] Comment on above: Result Comment: Calc terry report will follow via computer, mail or patient registrar delivery. Performed By: #### P OCGLUC #### [facility] [address] [address] [address] Yash Mckeon Size <1 [facility] Comment on above: Result Comment: Too small to measure. Performed By: #### P OCGLUC #### [facility] [address] [address] [address] Yash Mckeon Sodium Acid Urate Normal [facility] Comment on above: Performed By: #### P OCGLUC #### [facility] [address] [address] [address] Yash Mckeon Source Comment [facility] Comment on above: Result Comment: Not provided Performed By: #### P OCGLUC #### [facility] [address] [address] [address] aYsh Mckeon Triamterene [facility] Comment on above: Performed By: #### P OCGLUC #### [facility] [address] [address] [address] Yash Mckeon Uric Acid [facility] Comment on above: Performed By: #### P OCGLUC #### [facility] [address] [address] [address] Yash Mckeon Uric Acid Dihydrate [facility] Comment on above: Performed By: #### P OCGLUC #### [facility] [address] [address] [address] Yash Mckeon Weight <1 [facility] Comment on above: Result Comment: Too small to weigh Performed By: #### P OCGLUC #### [facility] [address] [address] [address] Yash Mckeon Xanthine [facility] Comment on above: Performed By: #### P OCGLUC #### [facility] [address] [address] [address] Yash Mckeon CBC AUTO DIFFon 04-04-2022 BASO # 0.1 103/ul Normal 0.0-0.1 [facility] Comment on above: Performed By: #### C BC #### [facility] [address] [address] [address] Yash Mckeon Basophils/100 WBC (Bld) 0.9 % Normal 0.2-2.0 [facility] Comment on above: Performed By: #### C BC #### [facility] [address] [place] [address] Dr. Yash Mckeon EO # 0.4 103/ul Normal 0.0-0.7 [facility] Comment on above: Performed By: #### C BC #### [facility] [address] [place] [address] Dr. Yash Mckeon Eosinophils/100 WBC (Bld) 3.3 % Normal 0.9-7.0 [facility] Comment on above: Performed By: #### C BC #### [facility] [address] [place] [address] Dr. Yash Mckeon Erythrocyte distribution width (RBC) [Ratio] 13.8 % Normal 11.0-15.0 [facility] Comment on above: Performed By: #### C BC #### [facility] [address] [place] [address] Dr. Yash Mckeon Hematocrit (Bld) [Volume fraction] 48.7 % Normal 42.0-54.0 [facility] Comment on above: Performed By: #### C BC #### [facility] [address] [place] [address] Dr. Yash Mckeon Hemoglobin (Bld) [Mass/Vol] 16.1 g/dL Normal 14.0-18.0 [facility] Comment on above: Performed By: #### C BC #### [facility] [address] [place] [address] Dr. Yash Mckeon IG # 0.06 10e3/ul Critically high 0.00-0.03 [facility] Comment on above: Performed By: #### C BC #### [facility] [address] [place] [address] Dr. Yash Mckeon IG % 0.5 % Normal 0.0-0.5 [facility] Comment on above: Performed By: #### C BC #### [facility] [address] [place] [address] Dr. Yash Mckeon LYMPH # 4.1 103/ul Critically high 1.2-3.8 [facility] Comment on above: Performed By: #### C BC #### [facility] [address] [place] [address] Dr. Yash Mckeon Lymphocytes/100 WBC (Bld) 33.3 % Normal 20.5-60.0 [facility] Comment on above: Performed By: #### C BC #### [facility] [address] [place] [address] Dr. Yash Mckeon MANUAL DIFF REQ NO Normal [facility] Comment on above: Performed By: #### C BC #### [facility] [address] [place] [address] Dr. Yash Mckeon MCH (RBC) [Entitic mass] 29.0 pg Normal 25.9-34.0 [facility] Comment on above: Performed By: #### C BC #### [facility] [address] [place] [address] Dr. Yash Mckeon MCHC (RBC) [Mass/Vol] 33.1 g/dL Normal 29.9-35.2 [facility] Comment on above: Performed By: #### C BC #### [facility] [address] [place] [address] Dr. Yash Mckeon MCV (RBC) [Entitic vol] 87.6 fL Normal 80.0-94.0 [facility] Comment on above: Performed By: #### C BC #### [facility] [address] [place] [address] Dr. Yash Mckeon MONO # 1.0 103/ul Critically high 0.3-0.8 [facility] Comment on above: Performed By: #### C BC #### [facility] [address] [place] [address] Dr. Yash Mckeon Monocytes/100 WBC (Bld) 8.2 % Normal 1.7-12.0 [facility] Comment on above: Performed By: #### C BC #### [facility] [address] [place] [address] Dr. Yash Mckeon NEUT # 6.6 103/ul Critically high 1.4-6.5 [facility] Comment on above: Performed By: #### C BC #### [facility] [address] [place] [address] Dr. Yash Mckeon Neutrophils/100 WBC (Bld) 53.8 % Normal 43.0-75.0 [facility] Comment on above: Performed By: #### C BC #### [facility] [address] [place] [address] Dr. Yash Mckeon Platelet mean volume (Bld) [Entitic vol] 10.5 fL Normal 9.5-13.5 [facility] Comment on above: Performed By: #### C BC #### [facility] [address] [place] [address] Dr. Yash Mckeon PLT 260 103/ul Normal 150-450 [facility] Comment on above: Performed By: #### C BC #### [facility] [address] [place] [address] Dr. Yash Mckeon RBC 5.56 106/ul Normal 4.70-6.10 [facility] Comment on above: Performed By: #### C BC #### [facility] [address] [place] [address] Dr. Yash Mckeon WBC 12.2 103/ul Critically high 4.0-11.0 [facility] Comment on above: Performed By: #### C BC #### [facility] [address] [place] [address] ABD/PELVIS WO CONon [...] JUANITA DYKES Date: 2022-04-04 08:43 Normal [facility] CULTURE URINEon 04-04-2022 CULTURE URINE Culture Observations : LIGHT GROWTH OF MIXED SKIN BRIANNA. NO POTENTIAL PATHOGENS SEEN. Normal [facility] Comment on above: Performed By: #### P OCGLUC #### [facility] [address] [place] [address] Dr. Yash Mckeon ER URINE PROFILEon 2 Bilirubin Ql (U) Negative Normal NEGATIVE [facility] Comment on above: Performed By: #### E ALLIE UMICRO #### [facility] [address] [address] [address] Yash Mckeon Clarity (U) SL CLOUDY Abnormal CLEAR [facility] Comment on above: Performed By: #### E SUNIL KELLEYRO #### [facility] [address] [place] [address] Dr. Yash Mckeon Color (U) BROWN Abnormal YELLOW [facility] Comment on above: Performed By: #### E ALLIE UMICRO #### [facility] [address] [place] [address] Dr. Yash DUBOSE A micrscopic examination will be performed if indicated. Normal [facility] Comment on above: Performed By: #### SUNIL STEPHENSRO #### [facility] [address] [place] [address] Dr. Yash Mckeon Glucose Ql (U) 100 mg/dl Abnormal NEGATIVE [facility] Comment on above: Performed By: #### LYN STEPHENSICRO #### [facility] [address] [place] [address] Dr. Yash Mckeon Hemoglobin Ql (U) LARGE Abnormal NEGATIVE [facility] Comment on above: Performed By: #### Vincenzo KELLEY UMICRO #### [facility] [address] [place] [address] Dr. Yash Mckeon Ketones Ql (U) TRACE Abnormal NEGATIVE [facility] Comment on above: Performed By: #### LYN STEPHENSICRO #### [facility] [address] [place] [address] Dr. Yash Mckeon LEUKOCYTES Negative Normal NEGATIVE [facility] Comment on above: Performed By: #### SUNIL STEPHENSRO #### [facility] [address] [place] [address] Dr. Yash Mckeon Nitrite Ql (U) Positive Abnormal NEGATIVE [facility] Comment on above: Performed By: #### Vincenzo KELLEY UMICRO #### [facility] [address] [place] [address] Dr. Yash Mckeon pH (U) 5.0 [pH] Normal 5-9 [facility] Comment on above: Performed By: #### Vincenzo KELLEY UMICRO #### [facility] [address] [place] [address] Dr. Yash Mckeon Protein (U) [Mass/Vol] 100 mg/dL Abnormal NEGATIVE/ TRACE [facility] Comment on above: Performed By: #### Vincenzo KELLEY UMICRO #### [facility] [address] [place] [address] Dr. Yash Mckeon SPEC GRAVITY >=1.030 Abnormal 1.005-<=1.02 5 [facility] Comment on above: Performed By: #### KALEIGH STEPHENS #### [facility] [address] [place] [address] Dr. Yash Mckeon UR MICRO IND INDICATED Normal [facility] Comment on above: Performed By: #### KALEIGH STEPHENS #### [facility] [address] [place] [address] Dr. Yash Mckeon Urobilinogen Qn (U) 1.0 {Nathaniel'U}/dL Normal 0.2 - 1. 0 [facility] Comment on above: Performed By: #### KALEIGH STEPHENS #### [facility] [address] [place] [address] Dr. Yash Mckeon PROF CHEM 8 (BAS METB)on Anion gap [Moles/Vol] 16.0 mmol/L Normal [facility] Comment on above: Performed By: #### B MP #### [facility] [address] [place] [address] Dr. Yash Mckeon Calcium [Mass/Vol] 8.5 mg/dL Normal 8.5-10.1 [facility] Comment on above: Performed By: #### B MP #### [facility] [address] [place] [address] Dr. Yash Mckeon Chloride [Moles/Vol] 102 mmol/L Normal 98-107 [facility] Comment on above: Performed By: #### B MP #### [facility] [address] [place] [address] Dr. Yash Mckeon CO2 [Moles/Vol] 23.6 mmol/L Normal 21.0-32.0 [facility] Comment on above: Performed By: #### B MP #### [facility] [address] [place] [address] Dr. Yash Mckeno Creatinine [Mass/Vol] 1.17 mg/dL Normal 0.70-1.30 [facility] Comment on above: Performed By: #### B MP #### [facility] [address] [place] [address] Dr. Yash Mckeon EGFR-AF BRUNEIAN >60 Normal >=60 [facility] Comment on above: Performed By: #### B MP #### [facility] [address] [address] [address] Yash Mckeon EGFR-NON AF BRUNEIAN >60 Normal >=60 [facility] Comment on above: Performed By: #### B MP #### [facility] [address] [address] [address] Yash Mckeon Glucose [Mass/Vol] 234 mg/dL Critically high 74-106 [facility] Comment on above: Performed By: #### B MP #### [facility] [address] [address] [address] Yash Mckeon Potassium [Moles/Vol] 3.6 mmol/L Normal 3.5-5.1 [facility] Comment on above: Performed By: #### B MP #### [facility] [address] [address] [address] Yash Mckeon Sodium [Moles/Vol] 138 mmol/L Normal 136-145 [facility] Comment on above: Performed By: #### B MP #### [facility] [address] [address] [address] Yash Mckeon Urea nitrogen [Mass/Vol] 8.0 mg/dL Normal 7.0-18.0 [facility] Comment on above: Performed By: #### B MP #### [facility] [address] [address] [address] Yash Mckeon Urea nitrogen/Creatinine [Mass ratio] 6.8 mg/mg Normal [facility] Comment on above: Performed By: #### B MP #### [facility] [address] [address] [address] Yash Mckeon URINE MICROSCOPIC ONLYon BACTERIA TRACE Abnormal NONE SEEN [facility] Comment on above: Performed By: #### E KALEIGH KELLEY #### [facility] [address] [address] [address] Yash Mckeon Bacteria identified Cx Nom (U) INDICATED Normal [facility] Comment on above: Performed By: #### LYN STEPHENSICRO #### [facility] [address] [place] [address] Dr. Yash Mckeon CAST NONE SEEN Normal NONE SEEN [facility] Comment on above: Performed By: #### Vincenzo KELLEY UMICRO #### [facility] [address] [place] [address] Dr. Yash Mkceon Crystals LM Nom (Urine sed) NONE SEEN Normal NONE SEEN [facility] Comment on above: Performed By: #### Vincenzo KELLEY UMICRO #### [facility] [address] [place] [address] Dr. Yash Mckeon Epithelial cells LM Ql (Urine sed) RARE Normal NONE SEEN /RARE [facility] Comment on above: Performed By: #### Vincenzo KELLEY UMICRO #### [facility] [address] [place] [address] Dr. Yash Mckeon MUCOUS NONE SEEN Normal NONE SEEN [facility] Comment on above: Performed By: #### SUNIL STEPHENSRO #### [facility] [address] [place] [address] Dr. Yash Mckeon RBC 20-50 Abnormal 0-2 [facility] Comment on above: Performed By: #### SUNIL STEPHENSRO #### [facility] [address] [place] [address] Dr. Yash Mckeon WBC 0-2 Abnormal NONE SEEN [facility] Comment on above: Performed By: #### SUNIL STEPHENSRO #### [facility] [address] [place] [address] Dr. Yash Mckeon CBC AUTO DIFFon 02-17-2022 BASO # 0.1 103/ul Normal 0.0-0.1 [facility] Comment on above: Performed By: #### C BC #### [facility] [address] [place] [address] Dr. Yash Mckeon Basophils/100 WBC (Bld) 0.7 % Normal 0.2-2.0 [facility] Comment on above: Performed By: #### C BC #### [facility] [address] [place], [place] [id number] Dr. Yash Mckeon EO # 0.2 103/ul Normal 0.0-0.7 [facility] Comment on above: Performed By: #### C BC #### [facility] [address] [place] [address] Dr. Yash Mckeon Eosinophils/100 WBC (Bld) 1.6 % Normal 0.9-7.0 [facility] Comment on above: Performed By: #### C BC #### [facility] [address] [place] [address] Dr. Yash Mckeon Erythrocyte distribution width (RBC) [Ratio] 14.3 % Normal 11.0-15.0 [facility] Comment on above: Performed By: #### C BC #### [facility] [address] [place] [address] Dr. Yash Mckeon Hematocrit (Bld) [Volume fraction] 47.1 % Normal 42.0-54.0 [facility] Comment on above: Performed By: #### C BC #### [facility] [address] [place] [address] Dr. Yash Mckeon Hemoglobin (Bld) [Mass/Vol] 15.7 g/dL Normal 14.0-18.0 [facility] Comment on above: Performed By: #### C BC #### [facility] [address] [place] [address] Dr. Yash Mckeon IG # 0.05 10e3/ul Critically high 0.00-0.[address] [facility] Comment on above: Performed By: #### C BC #### [facility] [address] [place] [address] Dr. Yash Mckeon IG % 0.5 % Normal 0.0-0.5 [facility] Comment on above: Performed By: #### C BC #### [facility] [address] [place] [address] Dr. Yash Mckeon LYMPH # 2.9 103/ul Normal 1.2-3.8 [facility] Comment on above: Performed By: #### C BC #### [facility] [address] [place] [address] Dr. Yash Mckeon Lymphocytes/100 WBC (Bld) 29.8 % Normal 20.5-60.0 [facility] Comment on above: Performed By: #### C BC #### [facility] [address] [place] [address] Dr. Yash Mckeon MANUAL DIFF REQ NO Normal [facility] Comment on above: Performed By: #### C BC #### [facility] [address] [place] [address] Dr. Yash Mckeon MCH (RBC) [Entitic mass] 29.2 pg Normal 25.9-34.0 [facility] Comment on above: Performed By: #### C BC #### [facility] [address] [place] [address] Dr. Yash Mckeon MCHC (RBC) [Mass/Vol] 33.3 g/dL Normal 29.9-35.2 [facility] Comment on above: Performed By: #### C BC #### [facility] [address] [place] [address] Dr. Yash Mckeon MCV (RBC) [Entitic vol] 87.7 fL Normal 80.0-94.0 [facility] Comment on above: Performed By: #### C BC #### [facility] [address] [place] [address] Dr. Yash Mckeon MONO # 0.7 103/ul Normal 0.3-0.8 [facility] Comment on above: Performed By: #### C BC #### [facility] [address] [place] [address] Dr. Yash Mckeon Monocytes/100 WBC (Bld) 6.8 % Normal 1.7-12.0 [facility] Comment on above: Performed By: #### C BC #### [facility] [address] [place] [address] Dr. Yash Mckeon NEUT # 5.9 103/ul Normal 1.4-6.5 [facility] Comment on above: Performed By: #### C BC #### [facility] [address] [place] [address] Dr. Yash Mckeon Neutrophils/100 WBC (Bld) 60.6 % Normal 43.0-75.0 [facility] Comment on above: Performed By: #### C BC #### [facility] [address] [place] [address] Dr. Yash Mckeon Platelet mean volume (Bld) [Entitic vol] 10.3 fL Normal 9.5-13.5 [facility] Comment on above: Performed By: #### C BC #### [facility] [address] [place] [address] Dr. Yash Mckeon PLT 240 103/ul Normal 150-450 [facility] Comment on above: Performed By: #### C BC #### [facility] [address] [place] [address] Dr. Yash Mckeon RBC 5.37 106/ul Normal 4.70-6.10 [facility] Comment on above: Performed By: #### C BC #### [facility] [address] [place] [address] Dr. Yash Mckeon WBC 9.8 103/ul Normal 4.0-11.0 [facility] Comment on above: Performed By: #### C BC #### [facility] [address] [place] [address] Dr. Yash Mckeon [facility]on [facility]23 SARS-CoV-2 (COVID-19) RNA TALIB+probe Ql (Unsp spec) Not detected Normal NOT DETECTED [facility] Comment on above: Result Comment: [...] for this test is supported by the Merchandiser of Health and Human Service's declaration that [...] used). Performed By: #### C VDTBH #### [facility] [address] [place] [address] Dr. Yash Mckeon D-DIMERon 02-17-2022 D-DIMER <0.19 Normal <=0.59 [facility] Comment on above: Performed By: #### D DIM #### [facility] [address] [place] [address] Dr. Yash Mckeon D-DIMER COMMENTS SEE BELOW Normal [facility] Comment on above: Result Comment: Incr eases [...] hospitalization. Performed By: #### D DIM #### [facility] [address] [place] [address] Dr. Yash Mckeon PROF CHEM 8 (BAS METB)on Anion gap [Moles/Vol] 13.0 mmol/L Normal [facility] Comment on above: Performed By: #### P OCGLUC #### [facility] [address] [place] [address] Dr. Yash Mckeon Calcium [Mass/Vol] 9.2 mg/dL Normal 8.5-10.1 [facility] Comment on above: Performed By: #### P OCGLUC #### [facility] [address] [place] [address] Dr. Yash Mckeon Chloride [Moles/Vol] 102 mmol/L Normal 98-107 [facility] Comment on above: Performed By: #### P OCGLUC #### [facility] [address] [place] [address] Dr. Yash Mckeon CO2 [Moles/Vol] 28.2 mmol/L Normal 21.0-32.0 [facility] Comment on above: Performed By: #### P OCGLUC #### [facility] [address] [address] [address] Yash Mckeon Creatinine [Mass/Vol] 1.10 mg/dL Normal 0.70-1.30 [facility] Comment on above: Performed By: #### P OCGLUC #### [facility] [address] [address] [address] Yash Mckeon EGFR-AF BRUNEIAN >60 Normal >=60 [facility] Comment on above: Performed By: #### P OCGLUC #### [facility] [address] [address] [address] Yash Mckeon EGFR-NON AF BRUNEIAN >60 Normal >=60 [facility] Comment on above: Performed By: #### P OCGLUC #### [facility] [address] [address] [address] Yash Mckeon Glucose [Mass/Vol] 174 mg/dL Critically high 74-106 [facility] Comment on above: Performed By: #### P OCGLUC #### [facility] [address] [address] [address] Yash Mckeon Potassium [Moles/Vol] 4.2 mmol/L Normal 3.5-5.1 [facility] Comment on above: Performed By: #### P OCGLUC #### [facility] [address] [address] [address] Yash Mckeon Sodium [Moles/Vol] 139 mmol/L Normal 136-145 [facility] Comment on above: Performed By: #### P OCGLUC #### [facility] [address] [address] [address] Yash Mckeon Urea nitrogen [Mass/Vol] 12.0 mg/dL Normal 7.0-18.0 [facility] Comment on above: Performed By: #### P OCGLUC #### [facility] [address] [address] [address] Yash Mckeon Urea nitrogen/Creatinine [Mass ratio] 10.9 mg/mg Normal [facility] Comment on above: Performed By: #### P OCGLUC #### [facility] [address] [place], [place] [address] Dr. Yash Mckeon TROPONIN, HIGH SENSITIVITYon 02-17-2022 HSTROP <4.0 Normal 4.0-76.1 [facility] Comment on above: Result Comment: CUT- OFF POINTS HAVE BEEN ESTABLISHED BASED ON THE FOURTH UNIVERSAL DEFINITIONS OF MYOCARDIAL INFARCTION. THE UPPER REFERENCE LIMIT (URL) OF TROPONIN, DEFINED THE 99TH PERCENTILE OF cTnI DISTRIBUTION IN A REFERENCE POPULATION, HAS BEEN CONFIRMED THE DECISION THRESHOLD FOR NM DIAGNOSIS. Performed By: #### P OCGLUC #### [facility] [address] [place], [place] [address] Dr. Yash Mckeon XR RIBS RT PA [...] JUANITA DYKES Date: 2022-02-17 15:26 Normal [facility] BASIC METABOLIC PANELon 08-25 Anion gap [Moles/Vol] 17 mmol/L Normal 10 - 20 [facility] Comment on above: Performed By: #### B MP #### [facility] [address] [place] [address] Calcium [Mass/Vol] 8.7 mg/dL Normal 8.6 - 10.3 [facility] Comment on above: Performed By: #### B MP #### [facility] [address] [place] [address] Chloride [Moles/Vol] 103 mmol/L Normal 98 - 107 [facility] Comment on above: Performed By: #### B MP #### [facility] [address] [place] [address] Creatinine [Mass/Vol] 0.88 mg/dL Normal 0.50 - 1.30 [facility] Comment on above: Performed By: #### B MP #### [address] [place] [address] GFR- AM. >60 Normal >60 [facility] Comment on above: Result Comment: CALC ULATIONS OF ESTIMATED GFR ARE PERFORMED USING THE MDRD STUDY EQUATION FOR THE IDMS-TRACEABLE CREATININE METHODS. CLIN CHEM 2007;53:766-72 Performed By: #### B MP #### [address] [place] [address] GFR-NON AM. >60 Normal >60 [facility] Comment on above: Performed By: #### B MP #### [address] [address] Glucose [Mass/Vol] 252 mg/dL High 74 - 99 [facility] Comment on above: Performed By: #### B MP #### [address] [address] HCO3 (Bld) [Moles/Vol] 19 mmol/L Low 21 - 32 [facility] Comment on above: Performed By: #### B MP #### [address] [address] Potassium [Moles/Vol] 4.1 mmol/L Normal 3.5 - 5.3 [facility] Comment on above: Performed By: #### B MP #### [address] [address] Sodium [Moles/Vol] 135 mmol/L Low 136 - 145 [facility] Comment on above: Performed By: #### B MP #### [address] [address] Urea nitrogen [Mass/Vol] 13 mg/dL Normal 6 - 23 [facility] Comment on above: Performed By: #### B MP #### [address] [place] [address] GLUCOSE-POCTon 09-05-2020 Glucose [Mass/Vol] 276 mg/dL High 74 - 99 [facility] Comment on above: Performed By: #### G LATA #### [facility] [address] [place] [address] History and Physical - Surgi kellie Update [...] Last Updated: 05-Sep-2020 11:26 by Nicky Garay) [facility] Operative Reports - [place] 09-05-2020 Operative Reports - [place] PREOPERATIVE INDICATION: Phimosis. PREOPERATIVE DIAGNOSIS: Phimosis. POSTOPERATIVE [...] NICKY GARAY MD EST EST DICTATION NUMBER: [id number] INTERNAL JOB NUMBER: [id number] Electronic Signatures: Nicky Garay) (Signed on 15-Sep-2020 07:34) Authored Unsigned, Draft (SYS GENERATED) (Entered on 06-Sep-2020 07:26) Entered Last Updated: 15-Sep-2020 07:34 by Nicky Garay) [facility] Order Reconciliationon 09-05 Order Reconciliation [...] be shared with your follow-up providers (doctor, blast hole driller, physical therapist, etc.). Follow Up with in [...] be shared with your follow-up providers (doctor, blast hole driller, physical therapist, etc.). Follow Up with in [...] but has not started this yet Normal [facility] Histologyon 09-05-2020 [place] [facility] Name BRIAN TSE Pathologist: CHRIS MACEDO [...] 2.5 x 0.5 x 0.5 cm respectively. Manager Hiv sections are submitted in 1 cassette. TNB tnb/09/05/2020 [facility] Department of Pathology [address] [place] [address] Normal [facility] Comment on above: Performed By: #### P #### [facility] [address] [facility] [address] Preop Checkliston 09-05-2020 Preop Checklist Preop Checklist: Preop Checklist: Arrival [id number] Arrival Time09:42 Procedure TypeCIRCUMCISION Temperature C36.2 degrees C Temperature F97.1 degrees F Heart Rate70 beats per minute Respiratory Rate18 breath per minute Blood Pressure Svztbegh817 mm/Hg Blood Pressure Paypaxqjr96 mm/Hg ID Band Onyes Allergy Bandno known [...] Updated: 05-Sep-2020 09:48 by Zainab Laguna) Normal [facility] URINE CULTURE,BACTERIALon URINE CULTURE,BACTERIAL PATIENT: BRIAN TSE LOCATION: [facility] BILL#: [id number] : 82 AGE: SEX: M ORDERED BY: NICKY GARAY SOURCE: URINE COLLECTED: 09/05/20 08:16 ANTIBIOTICS AT REINA.: RECEIVED : 09/05/20 11:32 SITE: R E S U L T S URINE CULTURE,BACTERIAL FINAL 09/06/20 07:51 NO SIGNIFICANT GROWTH. Normal [facility] Comment on above: Performed By: #### U RINC #### [facility] [address] [address] CORONAVIRUS 2019, SCREEN ASY MPTOMATICon 09-03-2020 CORONAVIRUS 2019,PCR NOT DETECTED Normal Not Detected [facility] Comment on above: Result Comment: [...] patient management decisions. Fact sheet for providers: https://www.fda.gov/media/730247/download Fact sheet for patients: https://www.fda.gov/media/167663/download This test has received FDA Emergency Use Authorization (EUA) and has been verified by [facility] ([facility]). This test is only authorized for the [...] complexity testing. Testing is performed in the [facility] laboratories located at [address] [place] [address]. Performed By: #### C OVSC #### [place] [address] Lab Specimen Source Nasal, Nasopharyngeal Normal [facility] Comment on above: Performed By: #### C OVSC #### [facility] [address] [address] [facility] [place] [address] Covid 19 Resultson Covid 19 Results NEGATIVE [...] be contacted by the [facility] to see if any of your close [...] or Naproxen (Aleve) can also be used. Nqfi-cay-vqghnjw cough and cold medicines can be used according to the instructions on the package. Some ueoa-etq-ymwfnsc medicines also contain acetaminophen. Make sure you [...] water are not available, use alcohol-based hand custodial operations manager. Avoid touching your eyes, nose, and mouth [...] a total of 10 days. Additional resources: [facility] COVID Hotline at 2-335-3XKYMQA ( ). COVID-19 Careline at (availabl e 24 hours per day, seven days a week if you or a loved one is experiencing anxiety related to the coronavirus pandemic). Clinical research opportunities: is conducting research studies to develop better testing and treatments for COVID. Do you want any information on how to participate Call [phone]. Websites: hospitals.org or www.CDC.gov Follow My Health / My UHCare (for other test results): Revised 06/10/2020 Electronic Signatures: Satinder Rajan (ADMIN) (Signature pending) Authored Last Updated: 03-Sep-2020 21:24 by Satinder Rajan (ADMIN) Normal [facility] CNOVon 10-14-2017 CNOV Office Visit (LOORRM) HERR MATHEWSBRIAN ([id number]) 1980 [facility] Time Provider Department10/14/17 11:00 AM NAHOMY SHARP [...] Very bad dreamsDate Reviewed: 10/14/2017Reviewed by: Nahomy (Pa) Scotch - Fully AssessedReason for Visit: right arm pain [Other]Primary Visit Diagnosis: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 with foodDisp: 60 tabletRfl: 1 CONSULT TO PHYSICAL THERAPY [9048] Order #: [id number]: 1Prescriptions as of 10/14/2017 Sig: ATORVASTATIN 10 [...] Historical Med Sig: Disc: Erroneous entryEncounter Number: [id number] Status:Closed by NAHOMY SHARP PA-C on 10/14/17 [facility] PROGRESSon 10-14-2017 PROGRESS HNO ID: [id number]: Nahomy Brown (Pa)chService: (none)Author Type: Physician AssistantType: Progress NotesFiled: 10/14/2017 [...] fileFAMILY HISTORY:No family history on file. Normal [facility] PROGRESS HNO ID: [id number]: Nahomy Sharp (Pa)Service: Orthopaedic SurgeryAuthor Type: Physician AssistantType: Progress NotesFiled: 10/20/2017 3:42 PMNote Text: [facility] [address] [place] [address] CLINIC NOTE Department of Orthopaedics - CYNTHIA KeitaCNAME: BRIAN TSE NO.: [id number] OF SERVICE: 10/14/2017CHIEF COMPLAINT: Right shoulder pain.HISTORY [...] doeshelp some temporarily. He was initially at [facility] through a [employer] [facility] [employer] and x-rays were obtained followed by an MRI. He is here todayfor further evaluation and discussion of treatment. He is dgbm-nzcmxxt-xnfoyqtxd diabetic who was under poor control several [...] lifting anything heavy. 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 They show some AC joint arthritis. Goodacromiohumeral distance. No significant glenohumeral arthritis. Noevidence of fracture. No other osseous abnormalities.MRI: MRI dated 10/01/2017 from [facility] shows a mildrotator cuff tendinosis, [...] for physical therapy, which he will doat [facility] in [place] for 4-6 weeks. Will follow up in 6 weeks jagruti. Discussed possibly a cortisone injection at that time ifnecessary. Declines today as he does not like needles.Dictated By: Pepe Zurita Dictated: 10/19/2017Date Typed: acu 10/19/2017JOB# [id number] Normal [facility] SR-MRI Shoulder w/o Contrast Right IMPORTon 10-01-2017 SR-MRI Shoulder w/o Contrast Right IMPORT Images were obtained outside of [facility] [id number] Normal [facility] SR-XR Shoulder Complete Righ t IMPORTon 09-13-2017 SR-XR Shoulder Complete Right IMPORT Images were obtained outside of [facility] [id number] Normal [facility] Vital Signs Date Time Vital Sign Value Performing Clinician Facility 12-28-2024 11:56-0400 Body height 180.3 cm Don Santos DPM FACFAS Work Phone: [facility] 12-28-2024 11:56-0400 Body mass index (BMI) [Ratio] 34.59 kg/m2 Don Santos DPM FACFAS Work Phone: [facility] 12-28-2024 11:56-0400 Body weight 112.49 kg Don Santos DPM FACFAS Work Phone: [facility] 12-28-2024 11:56-0400 Diastolic blood pressure 77 mm[Hg] Don Santos DPM FACFAS Work Phone: [facility] 12-28-2024 11:56-0400 Heart rate 73 /min Don Pratherce DPM FACFAS Work Phone: [facility] 12-28-2024 11:56-0400 Systolic blood pressure 128 mm[Hg] Don Santos DPM FACFAS Work Phone: [facility] 12-05-2024 10:04-0400 Body height 180.3 cm Don Santos DPM FACFAS Work Phone: [facility] 12-05-2024 10:04-0400 Body mass index (BMI) [Ratio] 34.59 kg/m2 Don Santos DPM FACFAS Work Phone: [facility] 12-05-2024 10:04-0400 Body weight 112.49 kg Don Dolce DPM FACFAS Work Phone: [facility] 12-05-2024 10:04-0400 Diastolic blood pressure 77 mm[Hg] Don Dolce DPM FACFAS Work Phone: [facility] 12-05-2024 10:04-0400 Heart rate 72 /min Don Dolce DPM FACFAS Work Phone: [facility] 12-05-2024 10:04-0400 Systolic blood pressure 129 mm[Hg] Don Dolce DPM FACFAS Work Phone: [facility] 11-20-2024 09:36-0400 Body height 180.3 cm Don Dolce DPM FACFAS Work Phone: [facility] 11-20-2024 09:36-0400 Body mass index (BMI) [Ratio] 34.59 kg/m2 Don Dolce DPM FACFAS Work Phone: [facility] 11-20-2024 09:36-0400 Body weight 112.49 kg Don Dolce DPM FACFAS Work Phone: [facility] 11-20-2024 09:36-0400 Diastolic blood pressure 75 mm[Hg] Don Dolce DPM FACFAS Work Phone: [facility] 11-20-2024 09:36-0400 Heart rate 73 /min Don Dolce DPM FACFAS Work Phone: [facility] 11-20-2024 09:36-0400 Systolic blood pressure 128 mm[Hg] Don Dolce DPM FACFAS Work Phone: [facility] 11-13-2024 09:51-0400 Body height 180.3 cm Don Dolce DPM FACFAS Work Phone: [facility] 11-13-2024 09:51-0400 Body mass index (BMI) [Ratio] 33.47 kg/m2 Don Dolce DPM FACFAS Work Phone: [facility] 11-13-2024 09:51-0400 Body weight 108.86 kg Don Dolce DPM FACFAS Work Phone: [facility] 11-13-2024 09:51-0400 Diastolic blood pressure 77 mm[Hg] Don Dolce DPM FACFAS Work Phone: [facility] 11-13-2024 09:51-0400 Heart rate 74 /min Don Dolce DPM FACFAS Work Phone: [facility] 11-13-2024 09:51-0400 Systolic blood pressure 129 mm[Hg] Don Dolce DPM FACFAS Work Phone: [facility] 11-06-2024 09:34-0400 Body height 180.3 cm Don Dolce DPM FACFAS Work Phone: [facility] 11-06-2024 09:34-0400 Body mass index (BMI) [Ratio] 33.61 kg/m2 Don Dolce DPM FACFAS Work Phone: [facility] 11-06-2024 09:34-0400 Body weight 109.32 kg Don Dolce DPM FACFAS Work Phone: [facility] 11-06-2024 09:34-0400 Diastolic blood pressure 75 mm[Hg] Don Dolce DPM FACFAS Work Phone: [facility] 11-06-2024 09:34-0400 Heart rate 71 /min Don Dolce DPM FACFAS Work Phone: [facility] 11-06-2024 09:34-0400 Systolic blood pressure 128 mm[Hg] Don Dolce DPM FACFAS Work Phone: [facility] 10-26-2024 10:46-0400 Body height 180.3 cm Don Dolce DPM FACFAS Work Phone: [facility] 10-26-2024 10:46-0400 Body mass index (BMI) [Ratio] 33.61 kg/m2 Don Dolce DPM FACFAS Work Phone: [facility] 10-26-2024 10:46-0400 Body weight 109.32 kg Don Santos DPM FACFAS Work Phone: [facility] 10-26-2024 10:46-0400 Diastolic blood pressure 77 mm[Hg] Don Santos DPM FACFAS Work Phone: [facility] 10-26-2024 10:46-0400 Heart rate 72 /min Don Santos DPM FACFAS Work Phone: [facility] 10-26-2024 10:46-0400 Systolic blood pressure 129 mm[Hg] Don Santos DPM FACFAS Work Phone: [facility] 09-25-2024 11:07-0500 Body height 175.3 cm Juanita Dye PRODUCTION STAFF WORKER-TUBE CARRIER Work Phone: [facility] 09-25-2024 11:07-0500 Body mass index (BMI) [Ratio] 33.64 kg/m2 Juanita Dye PRODUCTION STAFF WORKER-TUBE CARRIER Work Phone: [facility] 09-25-2024 11:07-0500 Body temperature 98.4 [degF] Juanita Dye PRODUCTION STAFF WORKER-TUBE CARRIER Work Phone: [facility] 09-25-2024 11:07-0500 Body weight 103.33 kg Juanita Dye PRODUCTION STAFF WORKER-TUBE CARRIER Work Phone: [facility] 09-25-2024 11:07-0500 Diastolic blood pressure 80 mm[Hg] Juanita Dye PRODUCTION STAFF WORKER-TUBE CARRIER Work Phone: [facility] 09-25-2024 11:07-0500 Heart rate 82 /min Juanita Dye PRODUCTION STAFF WORKER-TUBE CARRIER Work Phone: [facility] 09-25-2024 11:07-0500 SaO2% (BldA) [Mass fraction] 97 % Juanita Dye PRODUCTION STAFF WORKER-TUBE CARRIER Work Phone: [facility] 09-25-2024 11:07-0500 Systolic blood pressure 122 mm[Hg] Juanita Dye PRODUCTION STAFF WORKER-TUBE CARRIER Work Phone: [facility] 05-07-2024 14:57-0400 Body height 180.3 cm Don Santos DPM FACFAS Work Phone: [facility] 05-07-2024 14:57-0400 Body mass index (BMI) [Ratio] 33.61 kg/m2 Don Crescenciohaily DPM FACFAS Work Phone: [facility] 05-07-2024 14:57-0400 Body weight 109.32 kg Don Crescenciohaily DPM FACFAS Work Phone: [facility] 05-07-2024 14:57-0400 Diastolic blood pressure 79 mm[Hg] Don Crescenciohaily DPM FACFAS Work Phone: [facility] 05-07-2024 14:57-0400 Heart rate 74 /min Don Crescenciohaily DPM FACFAS Work Phone: [facility] 05-07-2024 14:57-0400 Systolic blood pressure 128 mm[Hg] Don Crescenciohaily DPM FACFAS Work Phone: [facility] 02-14-2024 16:11-0400 Body temperature 98.78 [degF] [facility] 02-14-2024 16:11-0400 Diastolic blood pressure 86 mm[Hg] [facility] 02-14-2024 16:11-0400 Heart rate 79 /min [facility] 02-14-2024 16:11-0400 Respiratory rate 18 /min [facility] 02-14-2024 16:11-0400 SaO2% (BldA) [Mass fraction] 98 % [facility] 02-14-2024 16:11-0400 Systolic blood pressure 131 mm[Hg] [facility] 2023 11:48-0400 Body height 176.5 cm Compa Waite PRODUCTION STAFF WORKER-TUBE CARRIER Work Phone: [employer] 2023 11:48-0400 Body mass index (BMI) [Ratio] 31.16 kg/m2 Compa Waite PRODUCTION STAFF WORKER-TUBE CARRIER Work Phone: [facility] [employer] [employer] 2023 11:48-0400 Body temperature 98.1 [degF] Compa Waite PRODUCTION STAFF WORKER-TUBE CARRIER Work Phone: [facility] [employer] 2023 11:48-0400 Body weight 97.07 kg Compa Waite PRODUCTION STAFF WORKER-TUBE CARRIER Work Phone: [facility] [employer] 2023 11:48-0400 Diastolic blood pressure 74 mm[Hg] Compa Waite PRODUCTION STAFF WORKER-TUBE CARRIER Work Phone: [facility] [employer] 2023 11:48-0400 Heart rate 65 /min Compa Waite PRODUCTION STAFF WORKER-TUBE CARRIER Work Phone: [facility] [employer] 2023 11:48-0400 SaO2% (BldA) [Mass fraction] 99 % Compa Waite PRODUCTION STAFF WORKER-TUBE CARRIER Work Phone: [employer] 2023 11:48-0400 Systolic blood pressure 124 mm[Hg] Compa Waite PRODUCTION STAFF WORKER-TUBE CARRIER Work Phone: [employer] 01-06-2023 10:25-0400 Body height 177.8 cm Georgia Del Cid Other [employer] Other 01-06-2023 10:25-0400 Body mass index (BMI) [Ratio] 31.1 kg/m2 Georgia Del Cid Other [employer] Other 01-06-2023 10:25-0400 Body temperature 98.7 [degF] Georgia Del Cid Other [employer] Other 01-06-2023 10:25-0400 Body weight 98.34 kg Georgia Martinoley Other [employer] Other 01-06-2023 10:25-0400 Diastolic blood pressure 88 mm[Hg] Georgia Maria Eugenia Other [employer] Other 01-06-2023 10:25-0400 Respiratory rate 18 /min [place] Maria Eugenia Other [employer] Other 01-06-2023 10:25-0400 SaO2% (BldA) [Mass fraction] 98 % [place] Maria Eugenia Other [employer] Other 01-06-2023 10:25-0400 Systolic blood pressure 136 mm[Hg] Georgia Maria Eugenia Other [employer] Other 05-20-2022 16:12-0400 Blood Pressure Location Nicky NILL [facility] 05-20-2022 16:12-0400 Body temperature 98.06 [degF] Nicky NILL [facility] 05-20-2022 16:12-0400 Diastolic blood pressure 74 mm[Hg] Nicky NILL [facility] 05-20-2022 16:12-0400 Heart rate 79 /min Nicky NILL [facility] 05-20-2022 16:12-0400 Mean blood pressure 85 mm[Hg] Nicky NILL [facility] 05-20-2022 16:12-0400 Respiratory rate 16 /min Nicky NILL [facility] 05-20-2022 16:12-0400 SaO2% (BldA) [Mass fraction] 96 % Nicky NILL [facility] 05-20-2022 16:12-0400 Systolic blood pressure 106 mm[Hg] Nicky NILL [facility] 05-20-2022 14:41-0400 Blood Pressure Location Nicky NILL [facility] 05-20-2022 14:41-0400 Body temperature 98.06 [degF] Nicky NILL [facility] 05-20-2022 14:41-0400 Diastolic blood pressure 83 mm[Hg] Nicky NILL [facility] 05-20-2022 14:41-0400 Heart rate 70 /min Nicky NILL [facility] 05-20-2022 14:41-0400 Respiratory rate 16 /min Nicky NILL [facility] 05-20-2022 14:41-0400 SaO2% (BldA) [Mass fraction] 99 % Nicky NILL [facility] 05-20-2022 14:41-0400 Systolic blood pressure 135 mm[Hg] Nicky NILL [facility] 05-20-2022 14:38-0400 Body temperature 97.52 [degF] Nicky NILL [facility] 05-20-2022 14:38-0400 Diastolic blood pressure 85 mm[Hg] Nicky NILL [facility] 05-20-2022 14:38-0400 Heart rate 67 /min Nicky NILL [facility] 05-20-2022 14:38-0400 Respiratory rate 14 /min Nicky NILL [facility] 05-20-2022 14:38-0400 SaO2% (BldA) [Mass fraction] 100 % Nicky NILL [facility] 05-20-2022 14:38-0400 Systolic blood pressure 122 mm[Hg] Nicky NILL [facility] 05-20-2022 14:25-0400 Respiratory rate 11 /min Nicky NILL [facility] 05-20-2022 14:15-0400 Respiratory rate 15 /min Nicky NILL [facility] 05-20-2022 13:41-0400 Blood Pressure Location Nicky NILL [facility] 05-20-2022 13:41-0400 Body temperature 97.52 [degF] Nicky NILL [facility] 05-20-2022 13:35-0400 Respiratory rate 14 /min Nicky NILL [facility] 05-20-2022 10:00-0400 Body temperature 98.06 [degF] Nicky NILL [facility] 05-20-2022 10:00-0400 Mean blood pressure 103 mm[Hg] Nicky NILL [facility] 05-20-2022 10:00-0400 Heart rate 66 /min Nicky NILL [facility] 05-13-2022 12:32-0400 Blood Pressure Location Nicky NILL [facility] 05-13-2022 12:32-0400 BP/Pulse Patient Position Nicky NILL [facility] 05-13-2022 12:32-0400 Diastolic blood pressure 86 mm[Hg] Nicky NILL [facility] 05-13-2022 12:32-0400 Heart rate 67 /min Nicky NILL [facility] 05-13-2022 12:32-0400 Mean blood pressure 102 mm[Hg] Nicky NILL [facility] 05-13-2022 12:32-0400 Respiratory rate 18 /min Nicky NILL [facility] 05-13-2022 12:32-0400 Systolic blood pressure 134 mm[Hg] Nicky NILL [facility] 05-13-2022 12:30-0400 Blood Pressure Location Nicky NILL [facility] 05-13-2022 12:30-0400 BP/Pulse Patient Position Nicky NILL [facility] 05-13-2022 12:30-0400 Diastolic blood pressure 83 mm[Hg] Nicky NILL [facility] 05-13-2022 12:30-0400 Heart rate 69 /min Nicky NILL [facility] 05-13-2022 12:30-0400 Mean blood pressure 102 mm[Hg] Nicky NILL [facility] 05-13-2022 12:30-0400 SaO2% (BldA) [Mass fraction] 97 % Nciky NILL [facility] 05-13-2022 12:30-0400 Systolic blood pressure 140 mm[Hg] Nicky NILL [facility] 05-13-2022 12:30-0400 Body temperature 97.7 [degF] Nicky NILL [facility] 04-27-2022 09:05-0400 Blood Pressure Location Nicky NILL [facility] [place] 04-27-2022 09:05-0400 Diastolic blood pressure 95 mm[Hg] Nicky NILL [facility] [place] 04-27-2022 09:05-0400 Heart rate 58 /min Nicky NILL [facility] [place] 04-27-2022 09:05-0400 Respiratory rate 16 /min Nicky NILL [facility] [place] 04-27-2022 09:05-0400 Systolic blood pressure 141 mm[Hg] Nicky NILL [facility] 04-23-2022 11:11-0400 Blood Pressure Location Patrick OWEN [facility] 04-23-2022 11:11-0400 Diastolic blood pressure 87 mm[Hg] Patrick OWEN [facility] [facility] 04-23-2022 11:11-0400 Heart rate 75 /min Patrick OWEN [facility] 04-23-2022 11:11-0400 Respiratory rate 16 /min Patrick OWEN [facility] 04-23-2022 11:11-0400 Systolic blood pressure 130 mm[Hg] Patrick OWEN [facility] Encounters Encounter Date Encounter Type Care Provider Facility Start: 04-18-2025 ambulatory Erlinda [facility]CENAS [facility] Start: 02-22-2025 End: 02-22-2025 ambulatory ASTRID TOVAR Facility:[facility] Start: 02-22-2025 End: 02-22-2025 Patient encounter procedure ASTRID TOVAR [facility] [place] Start: 02-22-2025 End: 02-22-2025 ambulatory ASTRIDSANDRA MATTHEWSAH-AMANKRA Facility:[facility] Start: 02-22-2025 End: 02-22-2025 Patient encounter procedure ASTRID RUBIN-AMANKRA [facility] [place] Start: 02-21-2025 End: 02-21-2025 Emergency department patient visit Lewis Campbell Facility[facility] Start: 02-19-2025 End: 02-19-2025 ambulatory ASTRID MATTHEWSAH-AMANKRA Facility:[facility] Start: 02-15-2025 End: 02-15-2025 ambulatory ASTRID CASSIEAH-AMANKRA Facility:[facility] Start: 02-15-2025 End: 02-15-2025 Patient encounter procedure ASTRID RUBIN-CIRILORA [facility] [place] Start: 01-23-2025 End: 01-23-2025 Orders Only Compa MITCHELL Work Phone: [facility] Start: 12-28-2024 End: 12-28-2024 [...] to internal orthopedic prosthetic device, initial encounter ([facility] Start: 11-13-2024 End: 11-13-2024 Bamboo flowsheet Don [...] Available Start: 10-31-2024 End: 10-31-2024 Telephone encounter Don D Dolce DPM FACFAS Work Phone: [...] 10-23-2024 End: 10-23-2024 Clinisync Result Encounter Don Nancy Pratherhaily DPM FACFAS Work Phone: [facility] External [facility] Unsolicited Start: 10-23-2024 End: 10-23-2024 Clinisync Result Encounter Don Nancy Sherrill DPM FACFAS Work Phone: [facility] External Department Unsolicited Start: 10-10-2024 End: 10-10-2024 ambulatory DON PRATHERHAILY Not Available Start: 10-01-2024 End: 10-01-2024 Telephone encounter Mayra Romi [facility] Comment on above: New Patient Start: 09-26-2024 End: 09-26-2024 Orders Only Juanita Dye PRODUCTION STAFF WORKER-TUBE CARRIER Work Phone: [facility] Comment on above: Vitamin B12 deficien cy (Primary Dx); Low serum vitamin D; Elevated triglycerides with high cholesterol; Dysesthesia affecting both sides of body Start: 09-25-2024 End: 09-25-2024 ambulatory JUANITA DYE [facility] Start: 09-25-2024 End: 09-25-2024 Office outpatient visit 25 minutes Juanita Dye PRODUCTION STAFF WORKER-TUBE CARRIER Work Phone: [facility] Comment on above: Cramp and spasm (Catrachita daya Dx); Lumbar spine pain; Cramping of feet; Diabetic peripheral neuropathy associated with type 2 diabetes mellitus ([facility]); Obesity with body mass index 30 or greater; Sleep disturbance Start: 09-25-2024 End: 09-25-2024 ambulatory JUANITA DYE [facility] Start: 05-07-2024 End: 05-07-2024 Office outpatient visit 25 minutes Don Pratherhaily DPM FACFAS Work Phone: [facility] Comment on above: 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) (Primary Dx); Abscess of toe, right; Contusion of right foot, initial encounter; Right foot pain Start: 05-07-2024 End: 05-07-2024 ambulatory DON SANTOS Not Available Start: 05-07-2024 End: 05-07-2024 Bamboo flowsheet Don Santos DPM FACFAS Work Phone: [facility] Start: 05-07-2024 End: 05-07-2024 Bamboo flowsheet Don Santos DPM FACFAS Work Phone: [facility] Start: 02-14-2024 End: 02-14-2024 Emergency department patient visit Reddy Thao [facility] Start: 01-22-2024 End: 01-23-2024 Refill Compa Waite PRODUCTION STAFF WORKER-TUBE CARRIER Work Phone: [facility] Comment on above: Type 2 diabetes josseline itus without complication, without long- term current use of insulin ([facility]) Start: 11-21-2023 End: 11-21-2023 Refill Adysan Hansk [facility] Start: 2023 End: 2023 Office outpatient visit 15 minutes Compa Waite PRODUCTION STAFF WORKER-TUBE CARRIER Work Phone: [facility] Comment on above: Encounter for occupa tional physical examination (Primary Dx); Type 2 diabetes mellitus without complication, without long-term current use of insulin ([facility]); Anxiety; Sleep disturbance Start: 2023 End: 2023 ambulatory [facility] Start: 08-08-2023 Refill Compa Emilie s PRODUCTION STAFF WORKER-TUBE CARRIER Work Phone: [facility] Start: 04-18-2023 End: 04-18-2023 Patient encounter procedure Patrick OWEN [facility] [place] Start: 01-06-2023 End: 01-06-2023 ambulatory Georgia Del Cid Other [employer] Other Start: 01-06-2023 Office outpatient vi sit 15 minutes Georgia Del Cid [facility] Start: 11-30-2022 End: 11-30-2022 ambulatory Imad Asaad Facility:[facility] Start: 11-04-2022 End: 11-04-2022 ambulatory Imad Asaad Other [facility] [employer] Other Start: 11-04-2022 Telephone encounter Imad Asaad [facility] Start: 10-28-2022 End: 10-28-[address] PATRICK OWEN . Facility:[facility] Start: 10-26-[address] PATRICK OWEN . Fac ility:[facility] Start: 10-22-2022 End: 10-23-[address] PATRICK OWEN . Facility:[facility] Start: 10-21-2022 End: 10-21-2022 ambulatory Domonique Myers Facility:[facility] Start: 10-21-2022 End: 10-21-2022 ambulatory DO Jude R Ruvalcaba III Work Phone: [facility] Work Phone: Start: 10-21-2022 End: 10-21-2022 Patient encounter procedure DO Jude Ruvalcaba III Work Phone: [facility] Work Phone: Start: 06-25-2022 End: 06-25-2022 Patient encounter procedure Nicky CHRISTINA [facility] [place] Start: 06-02-2022 End: 06-02-2022 Patient encounter procedure Nicky CHRISTINA [facility] Nill[facility] [place] Start: 05-20-2022 End: 05-20-2022 Admission to same day surgery center Nicky CHRISTINA [facility] Start: 05-13-2022 End: 05-13-2022 Patient encounter procedure Nicky CHRISTINA [facility] Start: 04-27-2022 End: 04-27-2022 Patient encounter procedure Nicky CHRISTINA [facility] General Surgery [place] Start: 04-23-2022 End: 04-23-[address] PATRICK OWEN . Facility:[facility] Start: 04-23-2022 End: 04-23-2022 Patient encounter procedure Patrick OWEN [facility] [place] Start: 04-04-2022 End: 04-04-2022 ambulatory SALBADOR HERNANDEZ Facility:[facility] Start: 02-17-2022 End: 02-17-2022 ambulatory [facility] SILVERMAN . Facility:[facility] Start: 10-14-2017 End: 10-17-2017 [facility] Procedures Date Procedure Procedure Detail Performing Clinician Start: 02-22-2025 Cystoscopic removal of ureteric stent ASTRID YUSUFROSA Start: 02-19-2025 Cystoscopy ASTRID ARMANI Start: 12-28-2024 Radex foot complete minimum 3 [...] Adult depression scr eening assessment Juanita Dye PRODUCTION STAFF WORKER-[facility] Work Phone: Start: 07-04-2023 Adult depression scr eening assessment Compa Waite PRODUCTION STAFF WORKER-[facility] Work Phone: Start: 10-21-2022 Plain chest X-ray DO Ro dahianameng Clementsers III Work Phone: Start: 09-27-2022 Microalbumin [Mass/v olume] in Urine by Test strip Compa Waite PRODUCTION STAFF WORKERPathway [employer]aceuticals[facility] Work Phone: Start: 05-20-2022 Laparoscopy surg rpr [...] on above: left great toe Tooth extraction Patrcik DELGADILLO Plan of Treatment Date Care Activity Detail Author Start: 09-25-2025 Adult BMI Screening [facility] Screen [facility] Start: 09-25-2025 Depression Screening Depression Scre [facility] Start: 09-25-2025 Tobacco Screening Tobacco Screening [facility] Start: 03-25-2025 Influenza [facility] Start: 12-26-2024 Hemoglobin A1c measurement Diabetes: Hemoglobin A1C [facility] Start: 12-26-2024 End: 12-26-2024 Patient encounter procedure 12/26/2024 10:40 AM EDT Office Visit [facility] [address] [facility] [place] [address] Compa Waite, PRODUCTION STAFF WORKER-TUBE CARRIER [address] [place], [place] [address] [facility] Start: 12-19-2024 End: 12-19-2024 Patient encounter procedure 12/19/2024 10:50 AM EDT Office Visit [facility] [address] [place] [phone] Don Santos, DPM FACFAS [address] [place] [address] [facility] Start: 12-04-2024 End: 12-04-2024 Patient encounter procedure 12/04/2024 9:40 AM EDT Office Visit [facility] [address] [place] [address] Don Santos, DPM FACFAS [address] [place] [address] [facility] Start: 11-20-2024 End: 11-20-2024 Patient encounter procedure 11/20/2024 9:20 AM EDT Office Visit [facility] [address] [facility] [place] [address] Don Santos, DPM FACFAS [address] [place] [address] [facility] Start: 11-16-2024 End: 11-16-2024 Patient encounter procedure 11/16/2024 2:30 PM EDT Office Visit [facility], A Department of [place] [id number] [facility] [address] [place] [address] Eleni Jaimes MD [address] [facility] [address] [place] [address] [facility] Department of [facility] Start: 11-13-2024 End: 11-13-2024 Patient encounter procedure [facility] Comment on above: Arrived Start: 11-06-2024 End: 11-06-2024 Patient encounter procedure [facility] Comment on above: Arrived Start: 10-26-2024 Adult BMI Screening Adult BMI Screen ing [facility] Start: 10-26-2024 Tobacco Screening Tobacco Screening [facility] Start: 10-26-2024 End: 10-26-2024 Patient encounter procedure 10/26/2024 10:20 AM EDT Office Visit [facility] [address] [place] [phone] Don Santos, DPM FACFAS [address] [place] [address] [facility] Start: 09-25-2024 End: 09-25-2025 XR Lumbar spine Views W flexion and W extension X-ray spine lumbar ap, lateral, flexion and extension only Imaging Routine Lumbar spine pain Expected: 09/25/2024, Expires: 09/25/2025 [facility] Work Phone: Comment on above: Expected: 09/25/2024 , Expires: 09/25/2025 Start: 07-05-2024 Tobacco Screening Tobacco Screening [facility] Start: 07-04-2024 Adult BMI Screening Adult BMI Screen ing [facility] Start: 07-04-2024 Depression Screening Depression Scre ening [facility] Start: 05-21-2024 End: 05-21-2024 Patient encounter procedure 05/21/2024 3:40 PM EDT Office Visit [facility] [address] [place] [phone] Don Santos, DPM FACFAS [address] [facility] [place] [address] [facility] Start: 05-07-2024 End: 05-07-2024 Patient encounter procedure 05/07/2024 2:40 PM EDT Office Visit [facility] [address] [place] [phone] Don Santos, DPM FACFAS [address] [facility] [place] [address] Arrived [facility] Comment on above: Arrived Start: 03-25-2024 Influenza vaccination [facility] Start: 01-30-2024 End: 01-30-2024 Patient encounter procedure 01/30/2024 4:15 PM EDT Office Visit [facility] [address] [place] [phone] Compa Waite APRN-[facility] [address] [place] [phone] [facility] Start: 12-17-2023 Adult BMI Follow Up Plan Adult BMI Follow Up Plan [facility] Start: 10-31-2023 End: 10-31-2023 Patient encounter procedure 10/31/2023 4:00 PM EDT Office Visit [facility] [address] [place] [phone] Compa Waite [facility] [address] [place] [phone] [facility] Start: 10-03-2023 End: 10-03-2023 Patient encounter procedure 10/03/2023 11:00 AM EDT Office Visit [facility] [address] [facility] [place] [address] Compa Waite APRN-TUBE CARRIER [address], [place] [address] [facility] Start: 09-28-2023 Urine screening for protein [facility] Start: 03-25-2023 Influenza vaccination Influenza Vacc ine [facility] Start: 09-09-2022 Diabetic foot examination Diabetic Foot Exam [facility] Start: 2000 DTaP,Tdap and Td Vaccines (1 - Tdap) DTaP,Tdap and Td Vaccines (1 - Tdap) [facility] Start: 10-28-1999 Adult BMI Follow Up Plan Adult BMI Follow Up Plan [facility] Start: 10-28-1999 Diabetic foot examination Diabetic Foot Exam [facility] Start: 10-28-1991 Glaucoma screening Diabetes: R etinopathy Screening [facility] Start: 1981 Glaucoma screening Diabetic Op hthalmology Exam [facility] Start: 1981 Statin Use: Diabetic Statin Use: Riya darryl [facility] Start: 1981 Tobacco Counseling Tobacco Counselin g [facility] End: 09-25-2025 CBC W Auto Differential panel - Blood CBC auto differential Lab Routine Lumbar spine pain Cramping of feet Cramp and spasm Diabetic peripheral neuropathy associated with type 2 diabetes mellitus ([facility]) Obesity with body mass index 30 or greater Sleep disturbance 1 Occurrences starting 09/25/2024 until 09/25/2025 [facility] Comment on above: 1 Occurrences starti ng 09/25/2024 until 09/25/2025 End: 09-25-2025 Comprehensive metabolic 2000 panel - Serum or Plasma Comprehensive metabolic panel Lab Routine Lumbar spine pain Cramping of feet Cramp and spasm Diabetic peripheral neuropathy associated with type 2 diabetes mellitus ([facility]) Obesity with body mass index 30 or greater Sleep disturbance 1 Occurrences starting 09/25/2024 until 09/25/2025 [facility] Comment on above: 1 Occurrences starti ng 09/25/2024 until 09/25/2025 End: 09-25-2025 Cyanocobalamin vitamin b-12 Vitamin B12 Lab Routine Lumbar spine pain Cramping of feet Cramp and spasm Diabetic peripheral neuropathy associated with type 2 diabetes mellitus ([facility]) Obesity with body mass index 30 or greater Sleep disturbance 1 Occurrences starting 09/25/2024 until 09/25/2025 [facility] [employer] Comment on above: 1 Occurrences starti ng 09/25/2024 until 09/25/2025 End: 09-25-2025 Hemoglobin A1c/Hemoglobin.total in Blood Hemoglobin A1c Lab Routine Lumbar spine pain Cramping of feet Cramp and spasm Diabetic peripheral neuropathy associated with type 2 diabetes mellitus ([facility]) Obesity with body mass index 30 or greater Sleep disturbance 1 Occurrences starting 09/25/2024 until 09/25/2025 [facility] [employer] Comment on above: 1 Occurrences starti ng 09/25/2024 until 09/25/2025 End: 09-25-2025 Lipid 1996 panel - Serum or Plasma Lipid profile Lab Routine Lumbar spine pain Cramping of feet Cramp and spasm Diabetic peripheral neuropathy associated with type 2 diabetes mellitus ([facility]) Obesity with body mass index 30 or greater Sleep disturbance 1 Occurrences starting 09/25/2024 until 09/25/2025 [employer] Comment on above: 1 Occurrences starti ng 09/25/2024 until 09/25/2025 End: 09-25-2025 Magnesium [Mass/volume] in Serum or Plasma Magnesium Lab Routine Lumbar spine pain Cramping of feet Cramp and spasm Diabetic peripheral neuropathy associated with type 2 diabetes mellitus ([facility]) Obesity with body mass index 30 or greater Sleep disturbance 1 Occurrences starting 09/25/2024 until 09/25/2025 [facility] [employer] Comment on above: 1 Occurrences starti ng 09/25/2024 until 09/25/2025 End: 09-25-2025 Thyroid profile includes TSH FT4 Thyroid profile includes TSH FT4 Lab Routine Lumbar spine pain Cramping of feet Cramp and spasm Diabetic peripheral neuropathy associated with type 2 diabetes mellitus ([facility]) Obesity with body mass index 30 or greater Sleep disturbance 1 Occurrences starting 09/25/2024 until 09/25/2025 [facility] [employer] Comment on above: 1 Occurrences starti ng 09/25/2024 until 09/25/2025 End: 09-25-2025 Vitamin D 25 hydroxy Vitamin D 25 hydroxy Lab Routine Lumbar spine pain Cramping of feet Cramp and spasm Diabetic peripheral neuropathy associated with type 2 diabetes mellitus ([facility]) Obesity with body mass index 30 or greater Sleep disturbance 1 Occurrences starting 09/25/2024 until 09/25/2025 [employer] Comment on above: 1 Occurrences starti ng 09/25/2024 until 09/25/2025 Immunizations Immunization Date Immunization Notes Care Provider Zoraida jane 07-08-2014 influenza virus vaccine, unspecified formulation ASTRID NKROSA [facility] 09-16-2011 tetanus toxoid, reduced diphtheria toxoid, and acellular pertussis vaccine, adsorbed ASTRID TOVAR [facility] NEGATED: Highlighted row has not occurred!09-09-2021 influenza, injectable, quadrivalent, preservative free Compa Waite PRODUCTION STAFF WORKER-TUBE CARRIER Work Phone: [employer] Comment on above: Deferred: Patient de cision Payers Date Payer Category Payer Private Health Insurance [facility] MEDICAID [id number] 2022 Self-pay [id number] 2022 Medicaid [id number] 2022 Medicaid HMO [employer] [id number] 1981 Unknown [id number] 2.16840.1.670092.3.579.2. 593 1981 Unknown [id number] 2.16.840.1.261603.3.579.2. 593 1981 Unknown [id number] 2.16840.1.231597.3.579.2. 593 1981 Unknown [id number] 2.16.840.1.424822.3.579.2. 593 1981 Unknown [id number] 2.16.840.1.952648.3.579.2. 593 1981 Unknown [id number] 2.16.840.1.003177.3.579.2. 593 1981 Unknown [id number] 2.16.840.1.700668.3.579.2. 593 1981 Unknown [id number] 2.16.840.1.010622.3.579.2. 1286 1981 Unknown [id number] 2.16.840.1.962947.3.579.2. 1286 1981 Unknown [id number] 2.16.840.1.986594.3.579.2. 1286 1981 Unknown [id number] 2.16.840.1.417241.3.579.2. 1258 1981 Unknown [id number] 2.840.1.332807.3.579.2. 1258 1981 Unknown [id number] 2.840.1.233427.3.579.2. 1258 1981 Unknown [id number] 2.840.1.199846.3.579.2. 1258 1981 Unknown [id number] 2.840.1.961489.3.579.2. 1258 1981 Unknown [id number] 2.840.1.995963.3.579.2. 1258 1981 Unknown [id number] 2..1.811326.3.579.2. 1258 1981 Unknown [id number] 20.1.732794.3.579.2. 1258 1981 Unknown [id number] .1.595882.3.579.2. 1258 1981 Unknown [id number] .1.673450.3.579.2. 1258 1981 Unknown [id number] .1.094825.3.579.2. 1258 1981 Unknown [id number] .1.611877.3.579.2. 1258 1981 Unknown [id number] 09.09.830.1.310196.3.579.2. 1258 1981 Unknown [id number] 09.09.830.1.429318.3.579.2. 1981 Unknown [id number] 09.09.830.1.795580.3.579.2 1981 Unknown [id number] 2.840.1.842866.3.579.2 1981 Unknown [id number] 2840.1.874436.3.579.2. 727 1981 Unknown [id number] 2.16.840.1.745674.3.579.2. 727 1981 Unknown [id number] 2.16.840.1.366523.3.579.2. 727 1981 Unknown [id number] 2.16.840.1.019157.3.579.2. 727 1981 Unknown [id number] 2.16.840.1.014789.3.579.2. 727 1981 Unknown [id number] 2.16.840.1.621348.3.579.2. 716 1959 Medicaid [id number] 1959 Medicaid [id number] 2.16.840.1.853681.19 Unknown [id number] 2.16.840.1.487580.3.579.2. 531 Unknown [id number] 2.16.840.1.608102.3.579.2. 531 Social History Date Type Detail Facility Start: 01-31-2020 End: 04-23-2022 Tobacco smoking status Smoker (finding) [facility] Start: 05-07-2024 End: 09-25-2024 Sex Assigned At Male [facility] Start: 04-27-2022 End: 02-15-2025 Tobacco smoking status Heavy tobacco smoker (finding) [facility] [place] Comment on above: Smoker Tobacco smoking status Never [facility] [place] Comment on above: Smoker Start: 1980 Sex Assigned At Male [facility] Start: 02-14-2024 End: 02-22-2025 Tobacco smoking status Light tobacco smoker (finding) [facility] unknown [facility] Start: 1981 Sex assigned at Not on file [facility] Start: 09-27-2022 End: 05-07-2024 Tobacco smoking status NHIS Smokes tobacco daily [facility] History of tobacco use Cigarette Smoker [facility] Start: 09-27-2022 End: 05-07-2024 Tobacco use and exposure Smokeless tobacco non-user [facility] Start: 05-07-2024 End: 12-28-2024 Alcoholic beverage intake Current drinker of alcohol (finding) [facility] Start: 05-07-2024 End: 09-25-2024 History of Social function [facility] Start: 2023 End: 09-25-2024 Alcoholic beverage intake Ex-drinker (finding) [facility] Start: 01-26-2010 End: 08-26-2021 Sex Male (finding) [facility] Sexual Orientation [facility] [place] Medical Equipment Procedure Code Equipment Code Equipment Origin al Text Equipment Identifier Dates INGUINAL HERNIA REPAIR ADULT [place] CORONEL, Nicky Guidry 05/20/22 Non Biological Abdomen {[id number] FDA Start: 05-20-2022 [id number] Start: 07-05-2023 1 Unit by miscellaneous route in the morning. [id number] Start: 07-05-2023 Monitor blood padilla gar daily [id number] Start: 07-05-2023 End: 2023 CYSTOSCOPY RETRO GRADE STENT INSERTION ASTRID TOVAR MD 02/19/25 Unknown Ureter L FDA Start: 02-19-2025 CYSTOSCOPY RETRO GRADE STENT INSERTION ASTRID TOVAR MD 02/19/25 Unknown Ureter L FDA Start: 02-19-2025 Functional Status Date Assessment Result Facility 02-14-2024 Functional Status N/A [facility] 05-13-2022 Functional Status No [facility] 04-27-2022 Functional Status N/A [facility] General Surgery [place] 04-23-2022 Functional Status N/A [facility] [place] Clinical Notes 04-23-2022 to 02-22-[address] [facility] - 12/28/2024 11:20 AM [address]inda Santos D[address] [facility] - 12/05/2024 9:40 AM [address]inda Santos D[address] [facility] - 11/20/2024 9:20 AM EDMikael Santos DPM [facility] - 11/13/2024 9:30 AM EDT Note Date & Type Note Facility 02-22-2025 Hospital Discharge instructions Patient Education 02/22/2025 11:54:09 Dietary Guidelines to Help Prevent Kidney Stones Dietary Guidelines to Help Prevent Kidney Stones Kidney stones are deposits of minerals and salts that form inside your kidneys. Your risk of developing kidney stones may be greater depending on your diet, your lifestyle, the medicines you take, and whether you have certain medical conditions. Most people can lower their risks of developing kidney stones by following these dietary guidelines. Your dietitian may give you more specific instructions depending on your overall health and the type of kidney stones you tend to develop. What are tips for following this plan? Reading food labels Choose foods with no salt added or low-salt labels. Limit your salt (sodium) intake to less than 1,500 mg a day. Choose foods with calcium for each meal and snack. Try to eat about 300 mg of calcium at each meal. Foods that contain 200 500 mg of calcium a serving include: ?8 oz (237 mL) of milk, gjxhkup-dhqjdtjdrqme-krpyn milk, and calcium-fortifiedfruit juice. Calcium-fortified means that calcium has been added to these drinks. ?8 oz (237 mL) of kefir, yogurt, and soy yogurt. ?4 oz (114 g) of tofu. ?1 oz (28 g) of cheese. ?1 cup (150 g) of dried figs. ?1 cup (91 g) of cooked broccoli. ?One 3 oz (85 g) can of sardines or mackerel. Most people need 1,000 1,500 mg of calcium a day. Talk to your dietitian about how much calcium is recommended for you. Shopping Buy plenty of fresh fruits and vegetables. Most people do not need to avoid fruits and vegetables, even if these foods contain nutrients that may contribute to kidney stones. When shopping for convenience foods, choose: ?Whole pieces of fruit. ?Pre-made salads with dressing on the side. ?Low-fat fruit and yogurt smoothies. Avoid buying frozen meals or prepared deli foods. These can be high in sodium. Look for foods with live cultures, such as yogurt and kefir. Choose high-fiber grains, such as whole-wheat breads, oat bran, and wheat cereals. Cooking Do not add salt to food when cooking. Place a salt shaker on the table and allow each person to add their own salt to taste. Use vegetable protein, such as beans, textured vegetable protein (TVP), or tofu, instead of meat in pasta, casseroles, and soups. Meal planning Eat less salt, if told by your dietitian. To do this: ?Avoid eating processed or pre-made food. ?Avoid eating fast food. Eat less animal protein, including cheese, meat, poultry, or fish, if told by your dietitian. To do this: ?Limit the number of times you have meat, poultry, fish, or cheese each week. Eat a diet free of meat at least 2 days a week. ?Eat only one serving each day of meat, poultry, fish, or seafood. ?When you prepare animal proteins, cut pieces into small portion sizes. For most meat and fish, one serving is about the size of the palm of your hand. Eat at least five servings of fresh fruits and vegetables each day. To do this: ?Keep fruits and vegetables on hand for snacks. ?Eat one piece of fruit or a handful of berries with breakfast. ?Have a salad and fruit at lunch. ?Have two kinds of vegetables at dinner. You may be told to limit foods that are high in a substance called oxalate. These include: ?Spinach (cooked), rhubarb, beets, sweet potatoes, and Vincentian chard. ?Peanuts. ?Potato chips, chinese fries, and baked potatoes with skin on. ?Nuts and nut products. ?Chocolate. If you regularly take a diuretic medicine, make sure to eat at least 1 or 2 servings of fruits or vegetables that are high in potassium each day. These include: ?Avocado. ?Banana. ?Barton, prune, carrot, or tomato juice. ?Baked potato. ?Cabbage. ?Beans and split peas. Lifestyle Drink enough fluid to keep your urine pale yellow. This is the most important thing you can do. Spread your fluid intake throughout the day. If you drink alcohol: ?Limit how much you have to: ?0 1 drink a day for women who are not . ?0 2 drinks a day for men. ?Know how much alcohol is in your drink. In the [place] one drink equals one 12 oz bottle of beer (355 mL), one 5 oz glass of wine (148 mL), or one 1 oz glass of hard liquor (44 mL). Lose weight if told by your health care provider. Work with your dietitian to find an eating plan and weight loss strategies that work best for you. General information Talk to your health care provider and dietitian about taking daily supplements. Depending on your health and the cause of your kidney stones, you may be told: ?Do not take high-dose supplements of vitamin C (1,000 mg a day or more). ?To take a calcium supplement. ?To take a daily probiotic supplement. ?To take other supplements such as magnesium, fish oil, or vitamin B6. Take wjqj-ive-wccpbrd and prescription medicines only as told by your health care provider. These include supplements. What foods should I limit? Limit your intake of the following foods, or eat them as told by your dietitian. Vegetables Spinach. Rhubarb. Beets. Canned vegetables. Pickles. Olives. Baked potatoes with skin. Grains Wheat bran. Baked goods. Salted crackers. Cereals high in sugar. Meats and other proteins Nuts. Nut butters. Large portions of meat, poultry, or fish. Salted, precooked, or cured meats, such as sausages, meat loaves, and hot dogs. Dairy Cheeses. Beverages Regular soft drinks. Regular vegetable juice. Seasonings and condiments Seasoning blends with salt. Salad dressings. Soy sauce. Ketchup. Barbecue sauce. Other foods Canned soups. Canned pasta sauce. Casseroles. Pizza. Lasagna. Frozen meals. Potato chips. Lithuanian fries. The items listed above may not be a complete list of foods and beverages you should limit. Contact a dietitian for more information. What foods should I avoid? Talk to your dietitian about specific foods you should avoid based on the type of kidney stones you have and your overall health. Fruits Grapefruit. The item listed above may not be a complete list of foods and beverages you should avoid. Contact a dietitian for more information. Summary Kidney stones are deposits of minerals and salts that form inside your kidneys. You can lower your risk of kidney stones by making changes to your diet. The most important thing you can do is drink enough fluid. Drink enough fluid to keep your urine pale yellow. Talk to your dietitian about how much calcium you should have each day, and eat less salt and animal protein as told by your dietitian. This information is not intended to replace advice given to you by your health care provider. Make sure you discuss any questions you have with your health care provider. Document Revised: 10/21/2022 Document Reviewed: 10/21/2022 [employer] Patient Education 2023 [employer]. Follow Up Care 02/22/2025 09:53:52 With:ARMANI CORONEL, NAVIN RESENDIZ Address: When: only if needed [facility] [place] 02-22-2025 Note Patient Education Nephrology Dietary Guidelines to Help Prevent Kidney Stones Kidney stones are deposits of minerals and salts that form inside your kidneys. Your risk of developing kidney stones may be greater depending on your diet, your lifestyle, the medicines you take, and whether you have certain medical conditions. Most people can lower their risks of developing kidney stones by following these dietary guidelines. Your dietitian may give you more specific instructions depending on your overall health and the type of kidney stones you tend to develop. What are tips for following this plan? Reading food labels ??? Choose foods with no salt added or low-salt labels. Limit your salt (sodium) intake to less than 1,500 mg a day. ??? Choose foods with calcium for each meal and snack. Try to eat about 300 mg of calcium at each meal. Foods that contain 200?500 mg of calcium a serving include: ? 8 oz (237 mL) of milk, pbvnaca-jepdgrwgybpg-wtohn milk, and calcium-fortifiedfruit juice. Calcium-fortified means that calcium has been added to these drinks. ? 8 oz (237 mL) of kefir, yogurt, and soy yogurt. ? 4 oz (114 g) of tofu. ? 1 oz (28 g) of cheese. ? 1 cup (150 g) of dried figs. ? 1 cup (91 g) of cooked broccoli. ? One 3 oz (85 g) can of sardines or mackerel. Most people need 1,000?1,500 mg of calcium a day. Talk to your dietitian about how much calcium is recommended for you. Shopping ??? Buy plenty of fresh fruits and vegetables. Most people do not need to avoid fruits and vegetables, even if these foods contain nutrients that may contribute to kidney stones. ??? When shopping for convenience foods, choose: ? Whole pieces of fruit. ? Pre-made salads with dressing on the side. ? Low-fat fruit and yogurt smoothies. ??? Avoid buying frozen meals or prepared deli foods. These can be high in sodium. ??? Look for foods with live cultures, such as yogurt and kefir. ??? Choose high-fiber grains, such as whole-wheat breads, oat bran, and wheat cereals. Cooking ??? Do not add salt to food when cooking. Place a salt shaker on the table and allow each person to add their own salt to taste. ??? Use vegetable protein, such as beans, textured vegetable protein (TVP), or tofu, instead of meat in pasta, casseroles, and soups. Meal planning ??? Eat less salt, if told by your dietitian. To do this: ? Avoid eating processed or pre-made food. ? Avoid eating fast food. ??? Eat less animal protein, including cheese, meat, poultry, or fish, if told by your dietitian. To do this: ? Limit the number of times you have meat, poultry, fish, or cheese each week. Eat a diet free of meat at least 2 days a week. ? Eat only one serving each day of meat, poultry, fish, or seafood. ? When you prepare animal proteins, cut pieces into small portion sizes. For most meat and fish, one serving is about the size of the palm of your hand. ??? Eat at least five servings of fresh fruits and vegetables each day. To do this: ? Keep fruits and vegetables on hand for snacks. ? Eat one piece of fruit or a handful of berries with breakfast. ? Have a salad and fruit at lunch. ? Have two kinds of vegetables at dinner. ??? You may be told to limit foods that are high in a substance called oxalate. These include: ? Spinach (cooked), rhubarb, beets, sweet potatoes, and Vincentian chard. ? Peanuts. ? Potato chips, chinese fries, and baked potatoes with skin on. ? Nuts and nut products. ? Chocolate. ??? If you regularly take a diuretic medicine, make sure to eat at least 1 or 2 servings of fruits or vegetables that are high in potassium each day. These include: ? Avocado. ? Banana. ? Barton, prune, carrot, or tomato juice. ? Baked potato. ? Cabbage. ? Beans and split peas. Lifestyle ??? Drink enough fluid to keep your urine pale yellow. This is the most important thing you can do. Spread your fluid intake throughout the day. ??? If you drink alcohol: ? Limit how much you have to: ? 0?1 drink a day for women who are not . ? 0?2 drinks a day for men. ? Know how much alcohol is in your drink. In the [place] one drink equals one 12 oz bottle of beer (355 mL), one 5 oz glass of wine (148 mL), or one 1? oz glass of hard liquor (44 mL). ??? Lose weight if told by your health care provider. Work with your dietitian to find an eating plan and weight loss strategies that work best for you. General information ??? Talk to your health care provider and dietitian about taking daily supplements. Depending on your health and the cause of your kidney stones, you may be told: ? Do not take high-dose supplements of vitamin C (1,000 mg a day or more). ? To take a calcium supplement. ? To take a daily probiotic supplement. ? To take other supplements such as magnesium, fish oil, or vitamin B6. ??? Take ztlt-iuk-fhzecfj and prescription medicines only as told by your health (more content not included)... [facility] 02-22-2025 Hospital Discharge instructions Follow Up Care 02/22/2025 07:38:05 With:ASTRID TOVAR MD, URL Address: When: Unknown [facility] [place] 02-21-2025 Note ED Patient Education Note Urology Renal Colic Renal colic is pain that is caused by passing a kidney stone. The pain can be sharp and severe. It may be felt in your back, abdomen, side (flank), or groin. It can cause nausea. Renal colic can come and go. Follow these instructions at home: Watch your condition for any changes. Medicines ??? Take lddm-pdp-oknynzv and prescription medicines only as told by your health care provider. ??? Ask your provider if the medicine prescribed to you: ? Requires you to avoid driving or using machinery. ? Can cause constipation. You may need to take these actions to prevent or treat constipation: ? Take nyth-jse-kpfqvsu or prescription medicines. ? Eat foods that are high in fiber, such as beans, whole grains, and fresh fruits and vegetables. ? Limit foods that are high in fat and processed sugars, such as fried or sweet foods. Eating and drinking ??? Drink enough fluid to keep your pee (urine) pale yellow. You may be told to drink at least 8?10 glasses of water each day. ??? Follow instructions from your provider about what you may eat and drink. ??? If told, change your diet. You may need to: ? Limit how much salt (sodium) you eat. You may need to eat less than 2 grams (2,000 mg) per day. ? Eat more fruits and vegetables. ? Limit how much animal protein you eat. This includes red meat, fish, poultry, and eggs. ? Avoid foods such as spinach, rhubarb, sweet potatoes, and nuts. These foods make kidney stones more likely to form. General instructions ??? Collect pee samples as told by your provider. You may need to collect a pee sample after you pass the kidney stone. ??? Strain your pee every time you pee (urinate), for as long as you are told. Use the strainer that your provider gives you. ??? Do not throw out the kidney stone after you pass it. Keep the stone so it can be tested by your provider. Testing the makeup of your kidney stone may show why you got it and help prevent you from getting more in the future. Your provider may give you more instructions. Make sure you know what you can and cannot do. Contact a health care provider if: ??? You have a fever or chills. ??? Your pee smells bad or looks cloudy. ??? You have pain or burning when you pee. ??? You have blood in your pee. Get help right away if: ??? The pain in your flank or groin suddenly gets worse. ??? You become confused or do not know the time of day, where you are, or who you are (become disoriented). ??? You feel like you may faint or you faint. This information is not intended to replace advice given to you by your health care provider. Make sure you discuss any questions you have with your health care provider. Document Revised: 07/29/2023 Document Reviewed: 04/06/2023 [employer] Patient Education ? 2023 [employer]. [facility] 02-21-2025 Note ED Note-Nursing Urology able to schedule pt for stent removal at 0815 [facility]. Pt agreeable to appt. Dr Campbell to provide additional symptom education and instructions. [facility] 02-21-2025 Note Progress Note-Marissa moss Patient: BRIAN TSE Age: 44 years Sex: Male : 1980 Associated Diagnoses: None Author: Ray Thompson Jr, DO Postoperative Information Postoperative disposition: Postoperative disposition: To PACU. Optimetrix number: Optimetrix number [id number]. Anesthetic utilized: General. Health Status Allergies: Allergic Reactions (Selected) Severity Not Documented MetFORMIN- Diarrhea. Physical Examination Vital Signs 02/19/2025 14:18 EDT Heart Rate Monitored 56 bpm LOW SpO2 100 % 02/19/2025 14:18 EDT Systolic Blood Pressure 130 mmHg Diastolic Blood Pressure 74 mmHg Mean Arterial Pressure, Cuff 93 mmHg 02/19/2025 14:18 EDT Respiratory Rate 18 br/min 02/19/2025 13:31 EDT Heart Rate Monitored 55 bpm LOW SpO2 98 % 02/19/2025 13:30 EDT Systolic Blood Pressure 129 mmHg Diastolic Blood Pressure 82 mmHg Mean Arterial Pressure, Cuff 98 mmHg 02/19/2025 13:30 EDT Respiratory Rate 18 br/min 02/19/2025 13:24 EDT Respiratory Rate Monitored 16 br/min 02/19/2025 13:24 EDT SpO2 98 % 02/19/2025 13:24 EDT Heart Rate Monitored 70 bpm 02/19/2025 13:24 EDT Systolic Blood Pressure 145 mmHg HI Diastolic Blood Pressure 98 mmHg HI 02/19/2025 13:24 EDT Temperature Temporal Artery 36.6 DegC Blood Pressure Location Left arm Mean Arterial Pressure, Cuff 114 mmHg Pain Assessment: Controlled. General: Awake, Alert, Appropriate. Respiratory: Adequate air exchange. Cardiovascular: Stable, Normal peripheral perfusion. Neurological: Normal sensory function, Normal motor function. Assessment Anesthetic outcome No anesthetic complications noted. Adequate pain relief. able to void without difficulty, able to ambulate with assist, tolerating PO intake, no N/V. Review / Management Condition: Stable. Plan Transfer/Discharge: Transfer/Discharge Discharge when meets criteria ( To home ). [facility] Comment on above: Result Comment: Elec tronically Signed By: Ray Thompson Jr, DO\.br\Date and Time Signed: 02/21/25 15:20 EDT 02-21-2025 Note Progress Note-Physic isa Patient: BRIAN TSE Age: 44 years Sex: Male : 1980 Associated Diagnoses: None Author: Ray Thompson Jr, DO Preoperative Information Anesthesia Preop Info: Time patient last ate or drank 02/19/2025 00:00:00. Anesthesia history: Patient history: None. Family history+: None. Informed consent: Signed by patient. Re-evaluation prior to induction: Initial evaluation reviewed: No significant change. Review of Systems Eye: Negative except as documented in history of present illness. Ear/Nose/Mouth/Throat: Negative except as documented in history of present illness. Respiratory: Negative except as documented in history of present illness. Cardiovascular: Negative except as documented in history of present illness. Musculoskeletal: Negative except as documented in history of present illness. Neurologic: Negative except as documented in history of present illness. Health Status Allergies: Allergic Reactions (Selected) Severity Not Documented MetFORMIN- Diarrhea. Problem list: All Problems Ureteral stone / SNOMED CT 56775246 / Confirmed Tobacco use / SNOMED CT [id number] / Confirmed Added secondary to social history documentation. Tobacco use / SNOMED CT 718926091 / Confirmed Smoker / SNOMED CT [id number] / Confirmed Added secondary to documentation in Social History. Smoker / SNOMED CT 818873455 / Confirmed Added secondary to documentation in Social History. Obesity / ICD-9-CM 278.00 / Possible Reducible left inguinal hernia / SNOMED CT 280566144 / Confirmed Kidney stone / SNOMED CT 103193763 / Confirmed Inguinal hernia / SNOMED CT 3328817063 / Confirmed History of kidney stones / SNOMED CT 2211351407 / Confirmed BMI 31.0-31.9,adult / SNOMED CT 634888822 / Confirmed Resolved: Major depressive disorder, single episode / SNOMED CT 46634044 Resolved: Elevated liver enzymes / SNOMED CT 3327328009 Resolved: DM (diabetes mellitus) / SNOMED CT [id number] 47E2 Resolved: Uncontrolled diabetes mellitus / SNOMED CT 310967383 Resolved: Candidal balano-posthitis / SNOMED CT 425046974 Canceled: Rectal bleeding / SNOMED CT 37009373 Canceled: Pneumonia / SNOMED CT 869753604 years ago 24 yo Canceled: None / SNOMED CT 610754121 Canceled: Hemorrhoid / SNOMED CT 434368458 Canceled: Headache / SNOMED CT 91957995 Canceled: Hallux valgus of right foot / SNOMED CT 466540112 Canceled: Fever / SNOMED CT 7496877811 Canceled: Elevated blood pressure reading / SNOMED CT 159890606 Canceled: Crohn disease / SNOMED CT 28846209 Canceled: Chronic headaches / SNOMED CT [id number] FA3D Canceled: Cholelithiasis / SNOMED CT 202842014 Canceled: Acute anal fissure / SNOMED CT 125193024 Histories Procedure history: Laparoscopy, surgical; repair initial inguinal hernia with mesh (96611) on 05/20/2022 at 41 Years. Harris bunionectomy, right on 02/27/2015 at 34 Years. Harris bunionectomy, left foot on 01/02/2015 at 34 Years. Hemorrhoidectomy (87435466) in the month of 10/2012 at 32 Years. Extn - Extraction of tooth (0469104409). Colonoscopy (178626050). Lateral sphincterotomy (676208138). removal of ingrown toenail. Comments: 12/27/2014 12:24 EDT - Bassam SLAUGHTER, Lashawn left great toe Cholecystectomy (94102906). Colonoscopy (908324996). Circumcision as an adult (598149782). Social History Social & Psychosocial Habits Alcohol 02/18/2025 Risk Assessment: Denies Alcohol Use 02/18/2025 Use: Current Type: Beer Frequency: 1-2 times per month Comment: couple beers a week - 07/26/2018 23:57 - Melvin Hopkins RN Substance Abuse 02/18/2025 Risk Assessment: Denies Substance Abuse 02/18/2025 Use: Current Comment: denied - 09/13/2017 09:11 - Krys Miner RN Comment: denies - 11/23/2018 12:51 - Lucy Devlin RN 02/18/2025 Use: Current Previous treatment: None Comment: Denies - 09/20/2019 22:17 - Li Emanuel RN Tobacco 02/18/2025 Risk Assessment: High Risk 02/18/2025 Tobacco Use: 5-9 cigarettes (between 1 02/18/2025 Tobacco Use: 10 or more cigarettes (1/ Smokeless tobacco use: Never Type: Cigarettes Tobacco use per day: 1 Started [age] age: 12.0 Years Smoking Cessation Yes Comment: Smoker - 09/20/2019 22:17 - Li Emanuel RN . Physical Examination Airway: Mallampati classification: II (soft palate, fauces, uvula visible). Respiratory: adequate air exchange. Cardiovascular: Regular rhythm. Plan [place] [employer] Anesthesiologists (ASA) physical status classification: Class III. Anesthetic Preoperative Plan: Anesthesia General, and Patient educated on benefits, alternatives and inherent risk of anesthesia including, but not all inclusive, Allergic reactions, dental damage, nerve damage and cardio-pulmonary complications and wishes to proceed with anesthetic plan.. [facility] Comment on above: Result Comment: Elec tronically Signed By: Ray Thompson Jr, DO\.willy\Date and Time Signed: 02/21/25 13:45 EDT 02-19-2025 Note Patient Education - Text [facility] [place], [place] Dr. Ye Pardo Post-operative Instructions for Ureteroscopy, Laser Lithotripsy, Stone Extraction and Stent Placement There are no incisions or dressings to be concerned with, as the procedure was performed inside the urinary system. For 24 hours after surgery: ??? No driving or operating machinery ??? Do not make important decisions ??? Do not consume alcohol, sleeping pills Stent Placement You may have a stent which spans the distance between your bladder and your kidney, allowing urine to pass through. It prevents blockage from swelling, kidney stones in ureter (tube connecting the kidney to the bladder), or scars. The presence of the stent may cause: ??? Back or side pain, especially with urination ??? Frequent or urgent urination ??? Bladder pressure or pain ??? Blood in urine You may pass stone debris or small blood clots, which is expected. Drinking plenty of water to dilute the urine may help. If there is a thread coming out of urinary channel, be careful not to accidently pull on this, as it is attached to the stent. The stent will most likely be removed in the office during a short procedure in which a scope is placed into the bladder, the stent is grasped and removed. At other times the stent may need to stay longer, either in preparation for other procedures or for other reasons. 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 Diet You may resume your normal diet, but you may want to start slowly and avoid spicy food, caffeine, carbonated beverages and alcohol, especially if you have a stent. Your diet and fluid intake may make irritation from the stent worse. Activity You may resume your normal activities, although you should take it easy on the day of the procedure. Minimizing activity may decrease the back discomfort and irritation from the stent, if present. Medications ??? You may resume your home medications unless instructed otherwise. ??? Hold aspirin, ibuprofen, Coumadin (warfarin) and other blood thinners until your office visit (we will discuss when to resume these medications) ??? Take your prescribed medications as directed, including your antibiotics. You may also be given a prescription for pain medicine or medicines to help with the bladder irritation from stent, if present. Things to watch for which would require an Emergency Room Visit (or call 911) (This is not a complete list) ??? Fever over 101.5 degrees, with or without chills ??? Severe bleeding ??? Severe drug reactions with itching, hives, rash, or severe flank pain ??? Tenderness or swelling or the calves, chest pain, or shortness of breath Please call the office to arrange for your post-operative appointment (with XRAY) [phone] [facility] 02-15-2025 Hospital Discharge instructions Patient Education 02/15/2025 10:45:41 Kidney Stones, Vwge-hl-Ndvp Kidney Stones Kidney stones are rock-like masses [...] pee. The stone usually leaves your body through your pee. A doctor may need to take out the stone. What are the causes? Kidney stones may be caused by: Too much calcium in the body. This may be caused by too much parathyroid hormone in the blood. Uric acid crystals in the bladder. The body makes uric acid when you eat certain foods. Narrowing of one or both of the ureters. A kidney blockage that you were born with. Past surgery on the kidney or the ureters. What increases the risk? You are more likely to develop this condition if: You have had a kidney stone in the past. Other people in your family have had kidney stones. You do not drink enough water. You eat a diet that is high in protein, salt (sodium), or sugar. You are very overweight (obese). What are the signs or symptoms? Symptoms of a kidney stone may include: Pain in the side of the belly, right below the ribs. Pain usually spreads to the groin. Needing to pee often or right away. Pain when peeing. Blood in your pee. Feeling like you may vomit (nauseous). Vomiting. Fever and chills. How is this treated? Treatment depends on the size, location, and makeup of the kidney stones. The stones will often pass out of the body when you pee. You may need to: Drink more fluid to help pass the stone. ?In some cases, you may be given fluids through an IV tube at the hospital. Take medicine for pain. Change your diet to help keep kidney stones from coming back. Sometimes, you may need: A procedure to break up kidney stones using a beam of light (laser) or shock waves. Surgery to remove the kidney stones. Follow these instructions at home: Medicines Take lpgb-frj-cfdlpiu and prescription medicines only as told by your doctor. Ask your doctor if the medicine prescribed to you requires you to avoid driving or using machinery. Eating and drinking Drink enough fluid to keep your pee pale yellow. ?You may be told to drink at least 8 10 glasses of water each day. This will help you pass the stone. If told by your doctor, change your diet. You may be told to: ?Limit how much salt you eat. ?Eat more fruits and vegetables. ?Limit how much meat, poultry, fish, and eggs you eat. Follow instructions from your doctor about what you may eat and drink. General instructions Collect pee samples as told by your doctor. You may need to collect a pee sample: ?24 hours after a stone comes out. ?8 12 weeks after a stone comes out, and every 6 12 months after that. Strain your pee every time you pee. Use the strainer that your doctor recommends. Do not throw out the stone. Keep it so that it can be tested by your doctor. Keep all follow-up visits. You may need X-rays and ultrasounds to make sure the stone has come out. How is this prevented? To prevent another kidney stone: Drink enough fluid to keep your pee pale yellow. This is the best way to prevent kidney stones. Eat healthy foods. Avoid certain foods as told by your doctor. You may be told to eat less protein. Stay at a healthy weight. Where to find more information National Kidney Foundation (NKF): kidney.org Urology Care Foundation (UCF): urologyhealth.org Contact a doctor if: You have pain that gets worse or does not get better with medicine. Get help right away if: You have a fever or chills. You get very bad pain. You get new pain in your belly. You faint. You cannot pee. This information is not intended to replace advice given to you by your health care provider. Make sure you discuss any questions you have with your health care provider. Document Revised: 03/04/2023 Document Reviewed: 03/04/2023 [employer] Patient Education 2023 [employer]. Follow Up Care 02/12/2025 13:44:09 With:ARMANI CORONEL, ASTRID, NAVIN Address: When: Unknown Comments:chris cystoVianney URS, laser litho [facility] 02-15-2025 Note Patient Education Urology Kidney Stones Kidney stones are rock-like masses that form inside of the kidneys. Kidneys are organs that make pee (urine). A kidney stone may move into other parts of the urinary tract, including: ??? The tubes that connect the kidneys to the bladder (ureters). ??? The bladder. ??? The tube that carries urine out of the body (urethra). Kidney stones can cause very bad pain and can block the flow of pee. The stone usually leaves your body through your pee. A doctor may need to take out the stone. What are the causes? Kidney stones may be caused by: ??? Too much calcium in the body. This may be caused by too much parathyroid hormone in the blood. ??? Uric acid crystals in the bladder. The body makes uric acid when you eat certain foods. ??? Narrowing of one or both of the ureters. ??? A kidney blockage that you were born with. ??? Past surgery on the kidney or the ureters. What increases the risk? You are more likely to develop this condition if: ??? You have had a kidney stone in the past. ??? Other people in your family have had kidney stones. ??? You do not drink enough water. ??? You eat a diet that is high in protein, salt (sodium), or sugar. ??? You are very overweight (obese). What are the signs or symptoms? Symptoms of a kidney stone may include: ??? Pain in the side of the belly, right below the ribs. Pain usually spreads to the groin. ??? Needing to pee often or right away. ??? Pain when peeing. ??? Blood in your pee. ??? Feeling like you may vomit (nauseous). ??? Vomiting. ??? Fever and chills. How is this treated? Treatment depends on the size, location, and makeup of the kidney stones. The stones will often pass out of the body when you pee. You may need to: ??? Drink more fluid to help pass the stone. ? In some cases, you may be given fluids through an IV tube at the hospital. ??? Take medicine for pain. ??? Change your diet to help keep kidney stones from coming back. Sometimes, you may need: ??? A procedure to break up kidney stones using a beam of light (laser) or shock waves. ??? Surgery to remove the kidney stones. Follow these instructions at home: Medicines ??? Take gvxa-wgl-tbaiell and prescription medicines only as told by your doctor. ??? Ask your doctor if the medicine prescribed to you requires you to avoid driving or using machinery. Eating and drinking ??? Drink enough fluid to keep your pee pale yellow. ? You may be told to drink at least 8?10 glasses of water each day. This will help you pass the stone. ??? If told by your doctor, change your diet. You may be told to: ? Limit how much salt you eat. ? Eat more fruits and vegetables. ? Limit how much meat, poultry, fish, and eggs you eat. ??? Follow instructions from your doctor about what you may eat and drink. General instructions ??? Collect pee samples as told by your doctor. You may need to collect a pee sample: ? 24 hours after a stone comes out. ? 8?12 weeks after a stone comes out, and every 6?12 months after that. ??? Strain your pee every time you pee. Use the strainer that your doctor recommends. ??? Do not throw out the stone. Keep it so that it can be tested by your doctor. ??? Keep all follow-up visits. You may need X-rays and ultrasounds to make sure the stone has come out. How is this prevented? To prevent another kidney stone: ??? Drink enough fluid to keep your pee pale yellow. This is the best way to prevent kidney stones. ??? Eat healthy foods. ??? Avoid certain foods as told by your doctor. You may be told to eat less protein. ??? Stay at a healthy weight. Where to find more information ??? National Kidney Foundation (NKF): kidney.org ??? Urology Care Foundation (UCF): urologyhealth.org Contact a doctor if: ??? You have pain that gets worse or does not get better with medicine. Get help right away if: ??? You have a fever or chills. ??? You get very bad pain. ??? You get new pain in your belly. ??? You faint. ??? You cannot pee. This information is not intended to replace advice given to you by your health care provider. Make sure you discuss any questions you have with your health care provider. Document Revised: 03/04/2023 Document Reviewed: 03/04/2023 [employer] Patient Education ? 2023 [employer]. [facility] 12-28-2024 History of Present illness Narrative Images [...] < 3 seconds Digits 1-5 bilateral NEURO: [place] Alisa 5.07 monofilament was intact B/L. Vibratory [...] p.r.n. ALEXIS Sawyer documented in this encounter [facility] 12-05-2024 History of Present illness Narrative Images from the original note were not included. Patient: Brian Tse : 1980 PCP: [facility] Provider MD Salud SUBJECTIVE This [...] < 3 seconds Digits 1-5 bilateral NEURO: [place] Alisa 5.07 monofilament was intact B/L. Vibratory [...] reexamination ALEXIS Sawyer documented in this encounter [facility] 11-20-2024 History of Present illness Narrative Images from the original note were not included. Patient: Brian Tse : 1980 PCP: [facility] Provider MD Salud SUBJECTIVE This [...] < 3 seconds Digits 1-5 bilateral NEURO: [place] Alisa 5.07 monofilament was intact B/L. Vibratory [...] to internal orthopedic prosthetic device, initial encounter ([facility]) 2. Hammer toe of left foot PLAN [...] reassessment. ALEXIS Sawyer documented in this encounter [facility] 11-13-2024 History of Present illness Narrative Images from the original note were not included. Patient: Brian Tse : 1980 PCP: [facility] Provider MD Salud SUBJECTIVE This [...] < 3 seconds Digits 1-5 bilateral NEURO: [place] Alisa 5.07 monofilament was intact B/L. Vibratory [...] boot ALEXIS Sawyer documented in this encounter [facility] 11-06-2024 History of Present illness Narrative Images from the original note were not included. Patient: Brian Tse : 1980 PCP: [facility] Provider MD Salud SUBJECTIVE This [...] < 3 seconds Digits 1-5 bilateral NEURO: [place] Alisa 5.07 monofilament was intact B/L. Vibratory [...] Guidelines. ALEXIS Sawyer documented in this encounter [facility] 10-31-2024 Telephone encounter Note The prescription has been sent to the pharmacy. Thank you. [facility] 10-31-2024 Miscellaneous Notes The prescription has been sent to the pharmacy. Thank you. documented in this encounter [facility] 10-26-2024 History of Present illness Narrative Images from the original note were not included. Patient: Brian Tse : 1980 PCP: [facility] Provider MD Salud SUBJECTIVE This [...] Medical History: Diagnosis Date Diabetes mellitus ([facility]) Medications: Current Outpatient Medications: glyBURIDE (Diabeta) 5 [...] 0.70 - 1.30 mg/dL Final [facility] EGFR-AF BRUNEIAN 10/23/2024 >60 >=60 mL/min/1.73m 2 Final [facility] EGFR-NON AF BRUNEIAN 10/23/2024 >60 >=60 mL/min/1.73m 2 Final BUN CREATININE RATIO 10/23/2024 12.3 Final CALCIUM 10/23/2024 8.8 8.5 - 10.1 mg/dL Final OBJECTIVE Physical examination: Vascular: Dorsalis pedis posterior tibial pulses are palpable bilateral, no edema noted Neuro: [place]-Alisa 5.07 monofilament intact, vibratory sensation intact Derm: [...] A1c. ALEXIS Sawyer documented in this encounter [facility] 10-01-2024 Miscellaneous Notes 1. IS THIS DUE TO AN ACCIDENT? -No 2. IS THIS WORKER'S COMP? PLEASE VERIFY IF THIS IS WORKERS COMP AND DOCUMENT (We do not accept any new workers comp cases) -No 3. WHAT INSURANCE? -[facility] Medicaid/[facility] Medicaid o 4. HAVE YOU EVER BEEN SEEN BY A NEUROLOGIST BEFORE? IF YES, WHO AND WHEN? IS THIS A SECOND OPINION? -No 5. ANY CHANCE OF NOW OR BEFORE YOUR APPOINTMENT? -N/a 6. OFFERED JANNA FOR SOONER APPOINTMENT? -Soonest appointment 7. PATIENT IS SCHEDULED ON/WITH: -11/16/24 2:30 Dr. Jaimes 8. WHO CALLED TO SCHEDULE APPOINTMENT? -Patient documented in this encounter [facility] 10-01-2024 Telephone encounter Note 1. IS THIS [...] 8. WHO CALLED TO SCHEDULE APPOINTMENT? -Patient [employer] 10-01-2024 Miscellaneous Notes ----- Message from STEPHEN [...] understanding with patient. [facility] Telephone encounter Note ----- Message from [...] 09/25/2024 7:11 PM EST To: STEPHEN Martin [facility] 10-01-2024 Telephone encounter Note Called and informed patient of results, mailed B12 slip to patient as he does not want to do injections. Neuro referral has been sent and he will be reaching out to them. Verbalized understanding with patient. [facility] 09-25-2024 History of Present illness Narrative Venipuncture performed in the right arm. Patient had no adverse reactions. Subjective CC: ED follow up for back pain Patient ID: Brian Tse is a 43 y.o. male. HPI Brian presents for ED follow up for back pain. He presented to [facility] on 09/07/2024 for back/flank pain. He had complained of right flank pain, and has a history of kidney stones. He had a CT scan of the abdomen and pelvis for kidney stones and this was negative for stones. He was given IV Toradol, Zofran and IV fluids. He was given a dose of Norflex and [place], prior to discharge. He was diagnosed with a muscle strain. He relates severe symptoms have resolved, although does have on-going right flank pain. He takes Tylenol and ibuprofen, but only obtains mild relief. He is in the process of graduating from [employer], and states had been running quit a [...] Nose: Nose normal. No rhinorrhea. Mouth/Throat: Lips: [place]. Mouth: Mucous membranes are moist. Pharynx: Oropharynx [...] associated with type 2 diabetes mellitus ([facility]) - CBC auto differential; Future - Comprehensive [...] Martin 09/25/24 1515 documented in this encounter [facility] 05-07-2024 History of Present illness Narrative Images [...] Medical History: Diagnosis Date Diabetes mellitus ([facility]) Medications: Current Outpatient Medications: glyBURIDE (Diabeta) 5 [...] < 3 seconds Digits 1-5 bilateral NEURO: [place] Alisa 5.07 monofilament was intact B/L. Vibratory sensation was intact B/L Musculoskeletal: Muscle strength was +5 over 5 all intrinsic and extrinsic muscles tested. ASSESSMENT 1. Abscess of toe, right 2. Contusion of right foot, initial encounter 3. Right foot pain 4. Type II diabetes mellitus with neurological manifestations ([facility]) PLAN I educated the patient the contusion [...] ulcerations. ALEXIS Sawyer documented in this encounter [facility] 02-14-2024 Hospital Discharge instructions Patient Education [...] by your health care provider. Follow the mechanical maintenance worker's instructions for use. Tighten and properly adjust [...] provider. Document Revised: 05/04/2021 Document Reviewed: 05/04/2021 [employer] Patient Education 2022 [employer] 02/14/2024 17:04:58 Foot Sprain Foot Sprain [...] cast on your foot. General instructions Take bpcc-nxh-jgjtfxp and prescription medicines only as told by [...] provider. Document Revised: 10/31/2020 Document Reviewed: 10/31/2020 [employer] Patient Education 2022 [employer]. Follow Up Care 02/14/2024 15:59:39 With:SALBADOR HERNANDEZ Address: [address] [place] [id number] Business (1) When:02/17/2024 16:55:32 Comments:Return to the emergency room if your pain gets worse or any new symptoms. [facility] 02-14-2024 Evaluation + Plan note Extrac ekateirna from: Title:ED Note Author:Master Olivo, Reddy Rose te:02/14/24 1. Sprain of left foot (S93. 602A: Unspecified sprain of left foot, initial encounter) Orders: ibuprofen, 600 mg = 1 tab(s), Tab, Oral, Once, Stop date 02/14/24 16:22:00 EDT, STAT, Start date 02/14/24 16:22:00 EDT, 02/14/24 16:22:00 EDT Post-op Shoe XR Foot 3+ Views Left [facility]04-29-2024 Miscellaneous Notes* Telephone Encounter - India Graf CMA - 11/21/2023 11:18 AM EDT Pharmacy requesting refill for 90 days [facility] encounter Note* Telephone Encounter - India Graf CMA - 11/21/2023 11:18 AM EDT Pharmacy requesting refill for 90 days please [facility]04-04-2024 History of Present illness Narrative* STEPHEN Ochoa - 2023 11:45 AM EDT Subjective Patient ID: Brian Tse is a 42 y.o. male. GEGE Torres presents to the office for physical exam as he is in the [employer] at [employer]. He will finish at the end of [...] negative. Brian can be cleared for the [employer] without restrictions. Physical form completed. Refills [...] complication, without long-term current use of insulin ([facility]) - blood sugar diagnostic (glucose blood) strip; [...] STEPHEN Ochoa 10/27/23 1548 [facility] note* Encounter Date Diagnosis Assessment Notes [...] worsening. Patient verbalized understanding of treatment plan. [facility] - [employer] Other 04-13-2023 Hospital Discharge instructions Follow Up Care 11/04/2022 10:27:15 With:BRAYDEN CORONEL, NAVIN Aranda Address: [facility] [address], [place] [address] [phone] When: Unknown [facility] 2022 Hospital Discharge instructions Patient Education 05/20/2022 14:32:40 Post Op Patient Instructions - FT (CUSTOM) Follow Up Care 04/27/2022 09:44:58 With:Nicky CHRISTINA Address: [address] [place] [phone]- Business (1) When:7 to 10 days [facility]09-30-2022 Hospital Discharge instructions Patient Education 04/23/2022 12:05:06 Kidney Stones, Jmkb-db-Vchj Kidney Stones Kidney stones are rock-like masses [...] Follow these instructions at home: Medicines Take kbpx-sdy-avmgdwo and prescription medicines only as told by [...] 12/27/2008 Document Revised: 11/27/2019 Document Reviewed: 11/27/2019 [employer] Patient Education 2020 [employer] Follow Up Care 04/22/2022 09:22:48 With:BRAYDEN CORONEL, Patrick Guidry, URL Address: [address] [place] [phone] When: Unknown [facility] evaluation + Plan note Future Appointments Appointment Date:04/27/2022 09:00:00 AM Scheduled Provider:Nicky CHRISTINA MD Location:[facility] Appointment Type:GS New 30 Appointment Date:10/22/2022 08:45:00 AM Scheduled Provider:Patrick OWEN MD [facility] Type:URO Office Visit Diagnostic Tests Pending * Calculi Analysis Urinary 04/23/22 [facility] evaluation + Plan note Future Appointments Appointment Date:05/13/2022 12:30:00 PM Scheduled Provider: Location:[facility] Appointment Type:Surgical PAT FT Appointment Date:05/13/2022 01:30:00 PM Scheduled Provider: Location:[facility] Appointment Type:Surgery PAT COVID Testing Appointment Date:05/20/2022 11:30:00 AM Scheduled Provider: Location:[facility] Appointment Type:Surgery FT Appointment Date:10/22/2022 08:45:00 AM Scheduled Provider:Patrick OWEN MD Location:[facility] Appointment Type:URO Office Visit [facility] General Surgery [place] Evaluation + Plan note Future Appointments Appointment Date:05/20/2022 11:30:00 AM Scheduled Provider: Location:[facility] Appointment Type:Surgery FT Appointment Date:10/22/2022 08:45:00 AM Scheduled Provider:Patrick OWEN MD Location:[facility]ments Appointment Date:10/22/2022 08:45:00 AM Scheduled Provider:Patrick OWEN MD [facility] Future App[facility]ments Appointment Date:06/22/2022 02:40:00 PM Scheduled Provider:Nicky CHRISTINA [facility]: Post Op 15 Appointment Date:10/22/2022 08:45:00 AM Scheduled Provider:Patrick OWEN MD Location:[facility] [place] Appointment Type:URO Office Visit General Surgery [place] Evaluation + Plan note Future Appointments Appointment Date:02/18/2025 09:00:00 AM Scheduled Provider: Location:[facility] Appointment Type:Surgery CALL PAT ALEX Appointment Date:02/19/2025 12:15:00 PM Scheduled Provider: Location:[facility] Appointment Type:Surgery FT [facility] [place] Evaluation noteNo assessment information available [facility] Work Phone: Evaluation noteNo InformationNortFairmount Behavioral [facility] System [employer] Other Evaluation note* Diagnosis Type II diabetes mellitus with neurological manifestations (CMS/HCC)- Primary Type II or unspecified type diabetes mellitus with neurological manifestations, not stated as uncontrolled Abscess of toe, right Contusion of right foot, initial encounter Right foot pain Pain in soft tissues of limb documented in this encounter [facility] HealthcareEvaluation note* Diagnosis Type 2 diabetes mellitus without complication, without long-term current use of insulin ([facility]) [facility] Diagnosis Encounter for occupational physical examination- Primary Type 2 diabetes mellitus without complication, without long-term current use of insulin ([facility]) Anxiety Anxiety state, unspecified Sleep disturbance Unspecified sleep disturbance documented in this encounter [facility] Diagnosis Cramp and spasm- Primary Lumbar spine pain Cramping of feet Cramp of limb Diabetic peripheral neuropathy associated with type 2 diabetes mellitus ([facility]) Obesity with body mass index 30 or greater Sleep disturbance Unspecified sleep disturbance documented in this encounter [facility] Diagnosis Vitamin B12 deficiency- Primary Other B-complex deficiencies Low serum vitamin D Elevated triglycerides with high cholesterol Mixed hyperlipidemia Dysesthesia affecting both sides of body documented in this encounter [facility]* Diagnosis Type II diabetes mellitus with neurological manifestations (CMS/HCC)- Primary Type II or unspecified type diabetes mellitus with neurological manifestations, not stated as uncontrolled Hallux interphalangeus, acquired, left Hammer toe of left foot documented in this encounter [facility]* Diagnosis Hallux interphalangeus, acquired, left- Primary documented in this encounter [facility] HealthcareEvaluation note* Diagnosis Tinea pedis of right foot- Primary Left foot pain Pain in soft tissues of limb Hallux interphalangeus, acquired, left Ankle contracture, right documented in this encounter [facility]* Diagnosis Tinea pedis of right foot- Primary Hallux interphalangeus, acquired, left Hammer toe of left foot documented in this encounter [facility]* Diagnosis Hammer toe of left foot- Primary Pain due to internal orthopedic prosthetic device, initial encounter ([facility]) documented in this encounter [facility]* Diagnosis Hallux interphalangeus, acquired, left- Primary Left foot pain Pain in soft tissues of limb documented in this encounter [facility] HealthcareEvaluation note* Diagnosis Hallux interphalangeus, acquired, left- Primary Left foot pain Pain in soft tissues of limb Hammer toe of left foot documented in this encounter [facility] general Narrative - Reported* Type Description Date Medical History Diabetes Medical History Renal calculi Medical History Hematochezia Surgical History CHOLECYSTECTOMY Surgical History HEMORRHOIDECTOMY Surgical History Foot Surgery Surgical History bunionectomy IMAGINATE - Technovating Reality Other Hospital course Narrative No data available for this section [facility] Hospital Discharge instructions No data available for this section [facility] General Surgery [place] InstructionsNot on filedocumented in this encounter [facility] filedocumented in this encounter [facility] on filedocumented in this encounter [facility]Not on filedocumented in this encounter [facility]* Attachments The following attachments cannot be sent through Care Everywhere. * Diabetes Exchange Diet (Liberian) documented in this encounterPro[facility]ica [facility] SystemInstructionsNot on file documented in this encounterProMedica Health SystemInstructionsNot on file documented in this encounterProMedica Health SystemInstructionsNot on file documented in this encounterProMedica Health SystemInstructionsNot on file documented in this encounterProMedica Health SystemProgress note No data available for this section [facility] [place] Summary Purpose Family History No Family History [...] Diagnosis: Phimosis, N47.1 Surgeon: Nicky Garay Resident/Fellow/Other Noteman: Radha Madrigal Procedure: 1. CIRCUMCISION Anesthesia: No [...] section and content) DATE CREATED AUTHOR 01/12/2018 [facility] DATE CREATED AUTHOR AUTHOR'S ORGANIZ ATION 09/16/2020 [facility] DATE CREATED AUTHOR AUTHOR'S ORGANIZ ATION 11/04/2020 [facility] DATE CREATED AUTHOR AUTHOR'S ORGANIZ ATION 11/04/2020 [employer] DATE CREATED AUTHOR AUTHOR'S ORGANIZ ATION 12/04/2022 [facility] DATE CREATED AUTHOR AUTHOR'S ORGANIZ ATION 12/06/2022 [facility] DATE CREATED AUTHOR AUTHOR'S ORGANIZ ATION 09/27/2024 [facility] DATE CREATED AUTHOR AUTHOR'S ORGANIZ ATION 09/27/2024 [facility] DATE CREATED AUTHOR AUTHOR'S ORGANIZ ATION 01/02/2025 [facility] DATE CREATED AUTHOR AUTHOR'S ORGANIZ ATION 02/21/2025 [facility] DATE CREATED AUTHOR AUTHOR'S ORGANIZ ATION 02/23/2025 [facility] DATE CREATED AUTHOR AUTHOR'S ORGANIZ ATION 02/24/2025 [facility] DATE CREATED AUTHOR AUTHOR'S ORGANIZ ATION 02/27/2025 [facility] DATE CREATED AUTHOR AUTHOR'S ORGANIZ ATION 04/19/2025 [facility] Care Team (unrecognized sect ion and content) Team Status: Active Member Role Status Dates Jude Ruvalcaba III , DO Primary Care Provider Active Team Status: Inactive Member Role Status Dates Jude Ruvalcaba III , DO Primary Care Provider Active Domonique Myers APRN Attending Provider Active Bookie Relationship Specialty Start Date End Date Unallocated, [place] [address] [place] [id number] PCP - General Family Medicine 05/04/24 Bookie Relationship Specialty Start Date End Date Unallocated, Lorna Wilkins MD [address] [place] [id number] PCP - General Family Medicine 05/04/24 Bookie Relationship Specialty Start Date End Date Compa Waite APRN-CNP PCP - General Nurse Practitioner 07/04/23 Bookie Relationship Specialty Start Date End Date Compa Waite APRN-CNP PCP - General Nurse Practitioner 07/04/23 Bookie Relationship Specialty Start Date End Date Compa Waite APRN-CNP PCP - General Nurse Practitioner 07/04/23 Bookie Relationship Specialty Start Date End Date [facility]Compa [facility]ough [facility] PCP - General Nurse Practitioner 07/04/23 Bookie Relationship Specialty Start Date End Date [facility]iteCompa hough [facility] PCP - General Nurse Practitioner 07/04/23 Bookie Relationship Specialty Start Date End Date [facility]iteCompa hough [facility] PCP - General Nurse Practitioner 07/04/23 Bookie Relationship Specialty Start Date End Date WaiteCompa hough [facility] PCP - General Nurse Practitioner 07/04/23 Bookie Relationship Specialty Start Date End Date WaiteCompa hough [facility] PCP - General Nurse Practitioner 07/04/23 Bookie Relationship Specialty Start Date End Date Unallocated, Lorna Wilkins MD [address] [place] [address] PCP - General Family Medicine 05/04/24 Bookie Relationship Specialty Start Date End Date Unallocated, Lorna Wilkins MD [address] [place] [address] PCP - General Family Medicine 05/04/24 Bookie Relationship Specialty Start Date End Date Unallocated, [place] [address] PCP - General Family Medicine 05/04/24 Bookie Relationship Specialty Start Date End Date Unallocated, Lorna Wilkins MD [address] [place] [address] PCP - General Family Medicine 05/04/24 Bookie Relationship Specialty Start Date End Date Unallocated, Lorna Wilkins MD [address] [place] [address] PCP - General Family Medicine 05/04/24 Bookie Relationship Specialty Start Date End Date Unallocated, Lorna Wilkins MD [address] [place] [address] PCP - General Family Medicine 05/04/24 Bookie Relationship Specialty Start Date End Date Unallocated, Lorna Wilkins MD [address] [place] [address] PCP - General Family Medicine 05/04/24 Bookie Relationship Specialty Start Date End Date Unallocated, Lorna Wilkins MD [address] [place] [address] PCP - General Family Medicine 05/04/24 Bookie Relationship Specialty Start Date End Date Compa Waite APRN-TUBE CARRIER PCP - General Nurse Practitioner 07/04/23 Goals [...] BE BASED ON THE PRIMARY CLINICAL RECORDS. [facility]. provides no warranty or guarantee of the accuracy or completeness of information in this document.
--- NOTE | 2025-05-01 08:04 | CT_ITS ---
The [address] [address] Patient Name: YESENIA TSE MRN: [id number]:[id number] date: 1980 Sex: M Assigned Patient Location: CT Current Patient Location: CT Accession/Order Number: [id number] Exam Date: 05/01/2025 08:10 Report Date: 05/01/2025 08:54 At the request of: NICKY FREGOSO DO Procedure: CT abdomen pelvis wo con CT ABDOMEN AND PELVIS WITHOUT CONTRAST COMPARISON: 02/06/2025 CLINICAL DATA: Left flank pain for the past few days and constipation. History of kidney stones. Spiral images were obtained through the abdomen and pelvis without contrast. This CT exam was performed using one or more following dose reduction techniques: Automated exposure control, adjustment of the mA and/or kV according to patient size, or use of iterative reconstruction technique. Limited cuts through the lung bases show no contributory findings. Evaluation of the intra-abdominal organs is slightly limited by the absence of contrast. The gallbladder is surgically absent. No common duct stones are noted. No intrahepatic masses are seen. The spleen, pancreas and adrenal glands show no acute findings. No renal calculi or hydronephrosis are noted. No ureteral dilatation or stones are present. The abdominal aorta is normal caliber and there is mild atherosclerotic plaque at the aorta and iliac arteries. There are a few small abdominal lymph nodes. No ascites is seen. The small bowel loops are not distended. There is mild ascending and transverse colonic stool. The descending colon is underdistended. There is a normal retrocecal appendix. The bony structures are intact. Images through the pelvis show normal caliber small bowel loops. There is a small amount of distal colonic stool. No diverticular disease is noted. There are no urinary bladder abnormalities for the degree of distention. The prostate is within normal limits for size though it does contain calcification. No ascites is seen. CT/CT abdomen pelvis wo con IMPRESSION: NO OBSTRUCTIVE UROPATHY OR STONE DISEASE. NO ACUTE FINDINGS. Impression dictated by: Linda Sierra M.D. 05/01/2025 8:54 AM Dictation Location: [place] [address] Electronically authenticated by: [id number] Y Date: 05/01/2025 08:54
[2025-05-01 10:29] LABS: Glucose Urine UA NEGATIVE (NEGATIVE)
== END 2025-05-01 07:58 | disposition home or self-care (01) ==
LOC: CT 07:57
PROVIDERS: PCP Nurse Practitioner Family; Visit Provider Family Medicine
DX: R10.32 Left lower quadrant pain (principal); E11.42 Type 2 diabetes mellitus with diabetic polyneuropathy
CPT/HCPCS: 74176; 81003; 82043; 82570